=== PATIENT | female | born 1950 | race Caucasian/White ===

== ENCOUNTER 2017-10-02 10:16 | Day surgery (SDC) | payer MEDICARE ==
[2012-05-22 11:43] VITALS: BP 117/51
[2017-10-02] MEDS ORDERED: Lactated Ringers 1,000 ML IV ONE (10:17)
[2017-10-02] MEDS ORDERED: Marcaine 0.5% SDV 10 ML IJ ONE (10:17)
[2017-10-02] MEDS ORDERED: DIPRIVAN 200 MG/20 ML IV ONE (10:17)
[2017-10-02] MEDS ORDERED: LIDOCAINE HCL 2% 100 MG/5 ML IJ ONE (10:17)
--- NOTE | 2017-10-02 12:33 | XRAY ---
Indication: Left L3-L4 MBB. Intraoperative fluoroscopy was provided for 24 seconds. Single digital spot image submitted for interpretation demonstrates posterior spinal needle tips projecting over the left L3-L4 and L4-L5 facets. Correlate with intraoperative findings/report.
--- NOTE | 2017-10-02 13:07 | XRAY ---
24 seconds fluoroscopy time in surgery for left L4-5 MBB.
--- NOTE | 2017-10-03 12:49 | OP ---
DATE OF PROCEDURE: 10/02/2017 1138 SURGEON: Neil Alvares D.O. PREOPERATIVE DIAGNOSIS: Degenerative lumbar spine disease, spondylosis, low back pain. POSTOPERATIVE DIAGNOSIS: Degenerative lumbar spine disease, spondylosis, low back pain. PROCEDURE PERFORMED: Left L5-L4 medial branch block under fluoroscopic guidance. DESCRIPTION OF THE PROCEDURE: The patient was taken to the operating room and placed in the prone position on the table. Skin at the injection site was prepped and draped in sterile fashion. Under fluoroscopy, bony anatomy of the targeted injection site was visualized. Induction agent was given as per anesthesia while vital signs were monitored. Local anesthetic agent of 2 cc of 1% lidocaine preservative free was introduced to anesthetize the skin and the subcutaneous tissue through the injection site. Under fluoroscopic guidance, a #20 gauge standard spinal needle was advanced into the target medial branch through the oblique approach. The preservative free 0.5 cc of 1% lidocaine and 0.5 cc of 0.25 - 0.5% Marcaine were injected into each of the targeted medial branch nerve. After the needle was being removed, the skin was cleansed with alcohol and then a bandage was applied. No complications or adverse consequences were observed. The patient was returned to the holding area until stabilized before discharge to home. After the patient had been fully recovered from anesthesia, the patient states 90% pain reduction after the procedure. The patient will be followed up within ten days after the injection for re-evaluation.
== END 2017-10-02 12:17 | disposition home or self-care (01) ==
LOC: SDC-PAIN 10:16
PROVIDERS: ATTEND Internal Medicine
DX: M46.96 Unspecified inflammatory spondylopathy, lumbar region (principal); M48.061 Spinal stenosis, lumbar region without neurogenic claudication; M62.838 Other muscle spasm
CPT/HCPCS: 64493; 64494; 72020; 77003; J2704

== ENCOUNTER 2017-11-13 10:10 | Day surgery (SDC) | payer MEDICARE ==
[2012-05-22 11:43] VITALS: BP 117/51
[~2017-11-13 10:10] MED LIST: LIDOCAINE HCL 2% 100 MG/5 ML ONE; Marcaine 0.5% SDV 10 ML ONE
[2017-11-13] MEDS ORDERED: DIPRIVAN 200 MG/20 ML IV ONE (10:11)
--- NOTE | 2017-11-13 13:16 | XRAY ---
Indication: L5-S1 MBB. Intraoperative fluoroscopy was provided for 33 seconds. 3 digital spot images submitted for interpretation demonstrates 2 posterior spinal needle tips projecting over the left L4-L5 and L5-S1 facets. Correlate with intraoperative findings/report.
--- NOTE | 2017-11-13 13:26 | XRAY ---
33 seconds fluoroscopy time in surgery for
--- NOTE | 2017-11-14 09:40 | OP ---
DATE OF PROCEDURE: 11/13/2017 1150 SURGEON: Neil Alvares D.O. PREOPERATIVE DIAGNOSIS: Degenerative lumbar spine disease, spondylosis, low back pain. POSTOPERATIVE DIAGNOSIS: Degenerative lumbar spine disease, spondylosis, low back pain. PROCEDURE PERFORMED: Left L5-L4 medial branch block under fluoroscopic guidance. DESCRIPTION OF THE PROCEDURE: The patient was taken to the operating room and placed in the prone position on the table. Skin at the injection site was prepped and draped in sterile fashion. Under fluoroscopy, bony anatomy of the targeted injection site was visualized. Induction agent was given as per anesthesia while vital signs were monitored. Local anesthetic agent of 0.5 cc of 1% lidocaine preservative free was introduced to anesthetize the skin and the subcutaneous tissue through the injection site. Under fluoroscopic guidance, a #20 gauge standard spinal needle was advanced into the target medial branch through the oblique approach. The preservative free 0.5 cc of 1% lidocaine and 0.5 cc of 0.25% Marcaine were injected into each of the targeted medial branch nerve. After the needle was being removed, the skin was cleansed with alcohol and then a bandage was applied. No complications or adverse consequences were observed. The patient was returned to the holding area until stabilized before discharge to home. The preoperative pain level was 7 out of 10 and the postoperative pain level is 1 out of 10. The patient will be followed up within ten days after the injection for re-evaluation.
== END 2017-11-13 12:20 | disposition home or self-care (01) ==
LOC: SDC-PAIN 10:10
PROVIDERS: ATTEND Internal Medicine
DX: M46.96 Unspecified inflammatory spondylopathy, lumbar region (principal); M62.838 Other muscle spasm; M51.36 Other intervertebral disc degeneration, lumbar region; Z79.891 Long term (current) use of opiate analgesic; M47.816 Spondylosis without myelopathy or radiculopathy, lumbar region
CPT/HCPCS: 64493; 64494; 72020; 77003; J2704

== ENCOUNTER 2018-06-18 09:28 | Day surgery (SDC) | payer MEDICARE, OTHER ==
[2012-05-22 11:43] VITALS: BP 117/51
[2018-06-18] MEDS ORDERED: DIPRIVAN 200 MG/20 ML IV ONE (09:29)
[2018-06-18] MEDS ORDERED: Xylocaine 1% Vial 30 ML PF IJ ONE (09:29)
[2018-06-18] MEDS ORDERED: LIDOCAINE HCL 2% 100 MG/5 ML IJ ONE (09:29)
[2018-06-18] MEDS ORDERED: Depo-Medrol 40 MG/ML IM ONE (09:29)
[2018-06-18] MEDS ORDERED: Lactated Ringers 1,000 ML IV ONE (12:37)
--- NOTE | 2018-06-18 12:41 | XRAY ---
Indication: Bilateral L4-S1 MBB. Intraoperative fluoroscopy was provided for 14 seconds. Single digital spot image submitted for interpretation demonstrates posterior spinal needle tips along the expected course of the left and right L4-S1 nerve roots. Correlate with intraoperative findings/report.
--- NOTE | 2018-06-18 12:46 | XRAY ---
14 seconds of fluoroscopy was used in surgery for bilateral L4-S1 MBB.
== END 2018-06-18 11:00 | disposition home or self-care (01) ==
LOC: SDC-PAIN 09:28
PROVIDERS: ATTEND Psychiatry & Neurology Pain Medicine
DX: M48.8X6 Other specified spondylopathies, lumbar region (principal)
CPT/HCPCS: 64493; 64494; 72020; 77003; J1030; J2001; J2704

== ENCOUNTER 2018-07-23 13:03 | Day surgery (SDC) | payer MEDICARE ==
[2012-05-22 11:43] VITALS: BP 117/51
[2018-07-23] MEDS ORDERED: DIPRIVAN 200 MG/20 ML IV ONE (13:04)
[2018-07-23] MEDS ORDERED: Marcaine 0.5% SDV 10 ML IJ ONE (13:04)
[2018-07-23] MEDS ORDERED: Xylocaine 1% Vial 30 ML PF IJ ONE (13:04)
[2018-07-23] MEDS ORDERED: Depo-Medrol 40 MG/ML IM ONE (13:04)
[2018-07-23] MEDS ORDERED: Lactated Ringers 1,000 ML IV ONE (14:54)
--- NOTE | 2018-07-23 16:18 | XRAY ---
Indication: Left L4-S1 RFA. Intraoperative fluoroscopy was provided for 48 seconds. 2 digital spot images submitted for interpretation demonstrates posterior spinal needle tips projecting over the expected course of the left L4-S1 nerve roots. Correlate with intraoperative findings/report.
--- NOTE | 2018-07-23 16:32 | XRAY ---
48 seconds fluoroscopy time in surgery for left L4-S1 RFA.
== END 2018-07-23 15:25 | disposition home or self-care (01) ==
LOC: SDC-PAIN 13:03
PROVIDERS: ATTEND Psychiatry & Neurology Pain Medicine
DX: M47.817 Spondylosis without myelopathy or radiculopathy, lumbosacral region (principal)
CPT/HCPCS: 64635; 64636; 72020; 77003; 99100; J1030; J2001; J2704

== ENCOUNTER 2018-10-22 10:49 | Day surgery (SDC) | payer MEDICARE ==
[2012-05-22 11:43] VITALS: BP 117/51
[2018-10-22] MEDS ORDERED: DIPRIVAN 200 MG/20 ML IV ONE (10:50)
[2018-10-22] MEDS ORDERED: LIDOCAINE HCL 2% 100 MG/5 ML IJ ONE (10:50)
[2018-10-22] MEDS ORDERED: Depo-Medrol 40 MG/ML IM ONE (10:50)
[2018-10-22] MEDS ORDERED: Ketamine HCl 50 MG/ML IJ ONE (10:50)
[2018-10-22] MEDS ORDERED: Marcaine 0.5% SDV 10 ML IJ ONE (10:50)
[2018-10-22] MEDS ORDERED: Lactated Ringers 1,000 ML IV ONE (14:25)
--- NOTE | 2018-10-22 16:10 | XRAY ---
Indication: Left SI joint injection. Intraoperative fluoroscopy was provided for 7 seconds. 2 digital spot images submitted for interpretation demonstrates posterior needle tip projecting over the inferior left SI joint. Correlate with intraoperative findings/report.
--- NOTE | 2018-10-22 16:14 | XRAY ---
7 seconds of fluoroscopy was used in surgery for left SI joint injection.
== END 2018-10-22 12:52 | disposition home or self-care (01) ==
LOC: SDC-PAIN 10:49
PROVIDERS: ATTEND Psychiatry & Neurology Pain Medicine
DX: M46.1 Sacroiliitis, not elsewhere classified (principal); I10 Essential (primary) hypertension; J44.9 Chronic obstructive pulmonary disease, unspecified; K21.9 Gastro-esophageal reflux disease without esophagitis; M19.90 Unspecified osteoarthritis, unspecified site; Z85.3 Personal history of malignant neoplasm of breast
CPT/HCPCS: 62321; 72100; 77002; G0260; 27096; 99100; J1030; J2704

== ENCOUNTER 2019-11-15 10:41 | Emergency (ER) | payer MEDICARE ==
[2019-11-15] MEDS ORDERED: Zofran 4 MG/2 ML VIAL IV ONE (11:06)
[2019-11-15] MEDS ORDERED: TORAdol 30 mg Injection IV ONE (11:06)
[2019-11-15] MEDS ORDERED: Sodium Chloride 0.9% 1000 ML 1,000 ML ONE (11:11)
[2019-11-15] MEDS ORDERED: TORAdol 30 mg Injection ONE (11:11)
[2019-11-15] MEDS ORDERED: Zofran 4 MG/2 ML VIAL ONE (11:11)
[2019-11-15] MEDS ORDERED: Sodium Chloride 0.9% 1000 ML 1,000 ML IV SCH (11:15)
[2019-11-15 11:21] LABS: Absolute Neutrophil Ct (ANC) 7.59 (1.4-6.9); BASOPHIL % 0.1 % (0.0-0.4); Basophil (Absolute #) 0.01 (0-0.4); Eosinophil % 0.4 % (0.00-5.0); Eosinophil (Absolute #) 0.04 (0-0.5); Hemoglobin 11.7 gm/dl (12.0-16.0); Lymphocyte (Absolute #) 2.41 (1.0-4.6); Lymphocytes % 21.9 % (24.0-44.0); Mean Cell Volume 82.8 fl (78-100); Mean Corpuscular Hemoglobin 26.2 pg (26-32); Mean Corpuscular Hgb Concent. 31.6 g/dl (32-36); Mean Platelet Volume 9.9 fl (7.5-11.0); Monocyte (Absolute #) 0.94 (0.0-1.3); Monocytes % 8.6 % (0.0-12.0); Platelet Count 289 K/mm3 (150-450); Red Blood Count 4.47 M/mm3 (4.1-5.4); Red Cell Distribution Width 15.5 % (11.5-14.0)
[2019-11-15 11:33] LABS: ALKALINE PHOSPHATASE 115 U/L (38-126); AMYLASE 43 U/L (30-110); ANION GAP 12.8 MEQ/L (5-15); BLOOD UREA NITROGEN 15 mg/dL (7-17); CHLORIDE 111 mmol/L (98-107); Carbon Dioxide 22 mmol/L (22-30); Creatinine 1 0.59 mg/dL (0.52-1.04); Glucose 111 mg/dL (74-106); Potassium 3.7 mmol/L (3.5-5.1); SGOT/AST 25 U/L (14-36); SGPT/ALT 16 U/L (0-35); SODIUM 142 mmol/L (137-145); Total Protein 7.4 g/dL (6.3-8.2)
[2019-11-15 11:39] LABS: LIPASE < 10 U/L (23-300)
[2019-11-15 11:59] LABS: Appearance CLOUDY (CLEAR); Bacteria RARE /HPF (NEGATIVE); Bilirubin NEGATIVE (NEGATIVE); Blood LARGE Ery/ul (0-5); Calcium Oxalate Crystals >100 /HPF (NEGATIVE); Glucose NEGATIVE (NEGATIVE); Ketones NEGATIVE (NEGATIVE); Leukocyte Esterase TRACE (NEGATIVE); Mucus SLIGHT /HPF (NEGATIVE); Nitrite NEGATIVE (NEGATIVE); Protein,Urine Dip 100 (Negative); Specific Gravity 1.019 (1.005-1.025); Urobilinogen NEGATIVE mg/dL (0-1); WBC 26-50 /HPF (0-5)
[2019-11-15 12:05] LABS: RBC >101 /HPF (0-2)
[2019-11-15 12:09] VITALS: O2SAT 95
[2019-11-15] MEDS ORDERED: ROCEPHIN 1 Gm-D5w 50 ml Bag** 1 G/50 ML IVPB IV STA (12:35)
[2019-11-15] MEDS ORDERED: ROCEPHIN 1 Gm-D5w 50 ml Bag** 1 G/50 ML IVPB IV ONE (12:37)
--- NOTE | 2019-11-15 12:39 | ERPHSYRPT ---
- History of Present Illness Time Seen by Provider: 11/15/19 11:00 Historian: patient Exam Limitations: no limitations Patient Subjective Stated Complaint: Right sided flank pain Triage Nursing Assessment: Patient ambulated back to ED and transferred self to bed. Patient A+O X3. Patient's skin pink, warm and dry. Patient complains of right sided flank pain that goes around to right side of abdomen constant sharp pain 10/10. Abdomen soft and round with BS X 4. Patient denies any urinary symptoms. Physician History: For the past 4 days pt has had constant right mid back pain radiating to the right flank; for the past 3 days nausea. Pt denies fever, chest pain, shortness of air, headache. Allergies/Adverse Reactions: codeine [Codeine] Adverse Reaction (Intermediate, Verified 11/15/19 11:07) Nausea and Vomiting, light headed bandaids Adverse Reaction (Mild, Uncoded 11/15/19 11:07) redness/swelling Home Medications: Aspirin 81 gm Chew [Baby Aspirin 81 mg Chew] 81 mg PO DAILY 01/25/16 [ History] Hydrocodone Bit/Acetaminophen [Hydrocodon-Acetaminophn 10-325] 1 ea PO Q8HPRN PRN 01/25/16 [History] Multivitamin [Daily Multivitamin] 4 ea PO DAILY 01/25/16 [History] Omeprazole 20 MG [Prilosec 20 mg] 20 mg PO BID 01/25/16 [History] Cyanocobalamin 500 Mcg [Vitamin B-12 500 MCG] 500 mcg SL DAILY 01/31/16 [ History] Epinephrine [Epipen] 0.3 mg IM UD 01/31/16 [History] Fluoxetine HCl [Prozac] 20 mg PO DAILY 01/31/16 [History] Meclizine HCl 25 mg [Antivert 25 mg] 25 mg PO UD 01/31/16 [History] Benazepril HCl [Lotensin] 40 mg PO DAILY 12/20/16 [History] Calcium Carbonate [Calcium] 600 mg PO BID 12/20/16 [History] Cholecalciferol (Vitamin D3) [Vitamin D3] 1,000 unit PO DAILY 12/20/16 [History] Fluticasone/Vilanterol [Breo Ellipta 100-25 Mcg INH] 1 each IH DAILY 12/20/16 [ History] Thiamine HCl [Vitamin B-1] 2.5 tab PO .WEEKLY 12/20/16 [History] Albuterol 8 gm Mdi Hfa [Ventolin Hfa MDI] 2 puff IH .PRN 07/03/17 [History ] Amlodipine Besylate 5 mg [Norvasc 5 mg] 5 mg PO DAILY 07/03/17 [History] Glucosamine/D3/Boswellia Marie [Osteo Bi-Flex Tablet] 1 each PO BID 07/03/17 [ History] Loratadine 10 mg [Claritin 10 mg] 10 mg PO DAILY 07/03/17 [History] Metoprolol Tartrate 50 mg [Lopressor 50 MG] 100 tab PO DAILY 08/22/17 [ History] Celecoxib 100 mg [celeBREX 100 MG] 200 mg PO DAILY 11/11/17 [History] Gabapentin 100 PO HS 11/11/17 [History] Hx Tetanus, Diphtheria Vaccination/Date Given: No Hx Influenza Vaccination/Date Given: Yes Hx Pneumococcal Vaccination/Date Given: No Immunizations Up to Date: Yes Travel Risk - International Travel Have you traveled outside of the country in past 3 weeks: No Have you or anyone close to you been diagnosed with or: No Do your reside in a community with a known COVID-19 case?: Yes If Yes where:: [facility] - Coronavirus Screening Has patient experienced Coronavirus symptoms: No - Review of Systems Constitutional: No Fever Respiratory: No Dyspnea Cardiac: No Chest Pain Abdominal/Gastrointestinal: Other (right flank pain) Musculoskeletal: Other (right mid back pain.) Neurological: No Headache All Other Systems: Reviewed and Negative - Past Medical History Pertinent Past Medical History: Yes Neurological History: No Pertinent History ENT History: No Pertinent History Cardiac History: High Cholesterol, Hypertension Respiratory History: COPD Endocrine Medical History: No Pertinent History Musculoskeletal History: Osteoarthritis GI Medical History: Diverticulosis, GERD, Polyps History: Other Psycho-Social History: No Pertinent History Female Reproductive Disorders: Breast Cancer Other Medical History: BILATERAL TKA 2008, BARIATRIC SURGERY 2009; BREAST CA W/ LUMPECTOMY 2003 - Past Surgical History Past Surgical History: Yes Neuro Surgical History: No Pertinent History Cardiac: No Pertinent History Respiratory: No Pertinent History Gastrointestinal: Hernia Repair, Other Genitourinary: No Pertinent History Musculoskeletal: Joint Replacement, Orthopedic Surgery Female Surgical History: Mastectomy Other Surgical History: T&A,Bjorn knee replacement, umbil. hernior.,bariatric surgery, breast cancer with partial mastectomy left, lumpectomy right breast, tubal - Social History Smoking Status: Former smoker Exposure to second hand smoke: Yes Drug Use: none Patient Lives Alone: No Significant Family History: heart disease, cancer - Female History Hx Now: No - Nursing Vital Signs Nursing Vital Signs: Initial Vital Signs Temperature 98.6 F 11/15/19 10:54 Blood Pressure 160/85 11/15/19 10:54 Pain Scale Pain Intensity 5 - Physical Exam General Appearance: alert Eye Exam: PERRL/EOMI Ears, Nose, Throat Exam: pharynx normal Neck Exam: normal inspection Respiratory Exam: lungs clear Cardiovascular Exam: normal heart sounds Gastrointestinal/Abdomen Exam: soft, normal bowel sounds Back Exam: normal inspection Extremity Exam: No pedal edema Neurologic Exam: alert, cooperative Skin Exam: warm, dry SpO2 Interpretation: normal SpO2: 95 O2 Delivery: Room Air - Course Nursing assessment & vital signs reviewed: Yes - CT Exams Abdomen/Pelvis CT Interpretation: Tele-radiologist Report (a 4 x 4 x 3 mm stone at the right distal ureter causes mild right hydronephrosis and mild hydroureter. it is 1.1 cm proximal to the uvj. cholecystectomy. a non-obstructing stone in the left renal pelvis is 12 x 10 x 9 mm. uncomplicated gastric bypass surgery.) Ordered Tests: Active Orders 24 hr Category Date Time Status IV Insertion STAT Care 11/15/19 11:06 Active ABDOMEN AND PELVIS W/0 CONTRAS [CT] Stat Exams 11/15/19 11:07 Taken AMYLASE Stat Lab 11/15/19 11:10 Completed BLOOD CULTURE Stat Lab 11/15/19 12:35 Ordered CBC W DIFF Stat Lab 11/15/19 11:10 Completed CMP Stat Lab 11/15/19 11:10 Completed CULTURE,URINE Stat Lab 11/15/19 11:10 Received LIPASE Stat Lab 11/15/19 11:10 Completed UA W/RFX UR CULTURE Stat Lab 11/15/19 11:10 Completed Medication Summary Generic Name Dose Route Start Last Admin Trade Name Freq PRN Reason Stop Dose Admin Sodium Chloride 1,000 mls @ 100 mls/hr 11/15/19 11:15 11/15/19 11:14 Sodium Chloride 0.9% 1000 Ml IV 12/15/19 11:14 100 mls/hr .Q10H SALVADOR Administration Ceftriaxone Sodium/Dextrose 1 g in 50 mls @ 100 mls/hr 11/15/19 12:35 12:40 Rocephin 1 Gm-D5w 50 Ml Bag IV 11/15/19 13:04 100 ml/hr STAT STA 100 mls/hr Administration Discontinued Medications Generic Name Dose Route Start Last Admin Trade Name Freq PRN Reason Stop Dose Admin Fentanyl Citrate 100 mcg 11/15/19 12:56 Sublimaze 100 Mcg/2 Ml IV 11/15/19 12:57 STAT ONE Ceftriaxone Sodium/Dextrose Confirm 11/15/19 12:37 Rocephin 1 Gm-D5w 50 Ml Bag Administered 11/15/19 12:38 Dose 1 g in 50 mls @ ud IV .STK-MED ONE Ketorolac Tromethamine 30 mg 11/15/19 11:06 11/15/19 11:14 Toradol 30 Mg Injection IV 11/15/19 11:07 30 mg STAT ONE Administration Ketorolac Tromethamine Confirm 11/15/19 11:11 Toradol 30 Mg Injection Administered 11/15/19 11:12 Dose 30 mg .ROUTE .STK-MED ONE Ondansetron HCl 4 mg 11/15/19 11:06 11/15/19 11:14 Zofran 4 Mg/2 Ml Vial IV 11/15/19 11:07 4 mg STAT ONE Administration Ondansetron HCl Confirm 11/15/19 11:11 Zofran 4 Mg/2 Ml Vial Administered 11/15/19 11:12 Dose 4 mg .ROUTE .STK-MED ONE Lab/Rad Data: Laboratory Result Diagrams 11/15/19 11:10 11/15/19 11:10 Laboratory Results 11/15/19 11/15/19 11/15/19 Range/Units 11:10 11:10 11:10 WBC 11.0 H (4.0-10.5) K/mm3 RBC 4.47 (4.1-5.4) M/mm3 Hgb 11.7 L (12.0-16.0) gm/dl Hct 37.0 (35-47) % MCV 82.8 (78-100) fl MCH 26.2 (26-32) pg MCHC 31.6 L (32-36) g/dl RDW 15.5 H (11.5-14.0) % Plt Count 289 (150-450) K/mm3 MPV 9.9 (7.5-11.0) fl Gran % 69.0 H (36.0-66.0) % Eos # (Auto) 0.04 (0-0.5) Absolute Lymphs (auto) 2.41 (1.0-4.6) Absolute Monos (auto) 0.94 (0.0-1.3) Lymphocytes % 21.9 L (24.0-44.0) % Monocytes % 8.6 (0.0-12.0) % Eosinophils % 0.4 (0.00-5.0) % Basophils % 0.1 (0.0-0.4) % Absolute Granulocytes 7.59 H (1.4-6.9) Basophils # 0.01 (0-0.4) Sodium 142 (137-145) mmol/L Potassium 3.7 (3.5-5.1) mmol/L Chloride 111 H (98-107) mmol/L Carbon Dioxide 22 (22-30) mmol/L Anion Gap 12.8 (5-15) MEQ/L BUN 15 (7-17) mg/dL Creatinine 0.59 (0.52-1.04) mg/dL Estimated GFR > 60.0 ML/MIN Glucose 111 H (74-106) mg/dL Calcium 9.0 (8.4-10.2) mg/dL Total Bilirubin 0.50 (0.2-1.3) mg/dL AST 25 (14-36) U/L ALT 16 (0-35) U/L Alkaline Phosphatase 115 (38-126) U/L Serum Total Protein 7.4 (6.3-8.2) g/dL Albumin 4.0 (3.5-5.0) g/dL Amylase 43 (30-110) U/L Lipase < 10 L (23-300) U/L Urine Color MERCEDES (YELLOW) Urine Appearance CLOUDY (CLEAR) Urine pH 5.0 (5-6) Ur Specific Rueter 1.019 (1.005-1.025) Urine Protein 100 (Negative) Urine Ketones NEGATIVE (NEGATIVE) Urine Blood LARGE (0-5) Mike/ul Urine Nitrite NEGATIVE (NEGATIVE) Urine Bilirubin NEGATIVE (NEGATIVE) Urine Urobilinogen NEGATIVE (0-1) mg/dL Ur Leukocyte Esterase TRACE (NEGATIVE) Urine WBC (Auto) 26-50 (0-5) /HPF Urine RBC (Auto) >101 (0-2) /HPF U Epithel Cells (Auto) NONE (FEW) /HPF Urine Bacteria (Auto) RARE (NEGATIVE) /HPF Calcium Oxalate Crystal >100 (NEGATIVE) /HPF Urine Mucus (Auto) SLIGHT (NEGATIVE) /HPF Urine Culture Reflexed YES (NO) Urine Glucose NEGATIVE (NEGATIVE) mg/dL - Progress Progress: unchanged Counseled pt/family regarding: lab results, rad results - Departure Departure Disposition: Home Clinical Impression: Renal colic on right side, UTI (urinary tract infection) Condition: Stable Critical Care Time: No Referrals: WANDER MONTOYA [Primary Care Provider] - Instructions: Kidney Stones (DC), Urinary Tract Infection, Adult (DC) Additional Instructions: Follow up with dr lo(urologist)([phone]) - call tomorrow morning for an appointment. Strain all urines. Prescriptions: Ondansetron ODT 4 MG [Zofran Odt 4 mg] 4 mg PO Q6H PRN PRN #14 tab.rapdis PRN Reason: Nausea/Vomiting Ketorolac Tromethamine [Toradol] 10 mg PO Q8H PRN PRN #14 tablet PRN Reason: Pain Smz/Tmp Ds Tablet [Bactrim Ds Tablet] 1 tab PO Q12H #20 tablet Tamsulosin HCl 0.4 mg [Flomax 0.4 MG] 0.4 mg PO DAILY #14 cap
[2019-11-15 12:43] VITALS: PULSE 60
[2019-11-15] MEDS ORDERED: SUBLIMAZE 100 MCG/2 ML IV ONE (12:56)
[2019-11-15] MEDS ORDERED: SUBLIMAZE 100 MCG/2 ML ONE (13:06)
[2019-11-15 13:15] VITALS: BP 132/50
--- NOTE | 2019-11-15 20:24 | XRAY ---
Indication: Right flank pain. Multiple contiguous axial images obtained through the abdomen and pelvis without contrast as ordered. Comparison: July 05, 2014. Lung bases demonstrates mild bibasilar atelectasis/scarring without infiltrate or effusion. Heart is not enlarged. Again a previous gastric bypass surgery and cholecystectomy. Noncontrasted stomach and bowel loops appear nonobstructed. Normal appendix. There is again diffuse scattered colonic diverticulosis. No free fluid/air. New 4 mm calculus in the distal right ureter, approximately 1-2 cm proximal to the UVJ. Proximal right ureter minimally prominent with mild hydronephrosis consistent with partial obstruction. Additional new punctate right mid renal calculus and new 1.2 cm nonobstructing left UPJ calculus. Remaining liver, pancreas, spleen, adrenal glands, bladder, and uterus appear unremarkable for noncontrast exam. Again moderate scattered aortoiliac calcifications without AAA. Osseous structures again with mild/moderate degenerative changes throughout the thoracolumbar spine. Impression: 1. New 4 mm distal right ureter calculus. Also new right renal micro-calculus and 1.2 cm nonobstructing left UPJ calculus. 2. Again diffuse colonic diverticulosis without diverticulitis. 3. Stable gastric bypass surgery and cholecystectomy. 4. Remaining CT abdomen/pelvis without contrast exam is negative. Comment: Preliminary interpretation was made by [facility]. No critical discrepancy.
== END 2019-11-15 13:27 | disposition home or self-care (01) ==
LOC: ED 10:41
DX: N23 Unspecified renal colic (principal); N39.0 Urinary tract infection, site not specified; Z79.899 Other long term (current) drug therapy; I10 Essential (primary) hypertension; E78.00 Pure hypercholesterolemia, unspecified; M19.90 Unspecified osteoarthritis, unspecified site; K21.9 Gastro-esophageal reflux disease without esophagitis; Z85.3 Personal history of malignant neoplasm of breast; Z96.653 Presence of artificial knee joint, bilateral
CPT/HCPCS: 36000; 36415; 74176; 80053; 81001; 82150; 83690; 85025; 87040; 87086; 96365; 96374; 96375; 99284; J0696; J1885; J2405; J3010

== ENCOUNTER 2020-05-27 10:01 | Emergency (ER) | payer MEDICARE ==
[2020-05-27 10:43] LABS: BASOPHIL % 0.4 % (0.0-0.4); Basophil (Absolute #) 0.03 (0-0.4); Eosinophil % 1.4 % (0.00-5.0); Eosinophil (Absolute #) 0.12 (0-0.5); Hematocrit 27.5 % (35-47); Hemoglobin 7.8 gm/dl (12.0-16.0); Lymphocyte (Absolute #) 2.77 (1.0-4.6); Lymphocytes % 33.4 % (24.0-44.0); Mean Cell Volume 69.6 fl (78-100); Mean Corpuscular Hemoglobin 19.7 pg (26-32); Mean Corpuscular Hgb Concent. 28.4 g/dl (32-36); Mean Platelet Volume 8.6 fl (7.5-11.0); Monocyte (Absolute #) 0.77 (0.0-1.3); Monocytes % 9.3 % (0.0-12.0); Neutrophil % 55.5 % (36.0-66.0); Platelet Count 446 K/mm3 (150-450); Red Blood Count 3.95 M/mm3 (4.1-5.4); Red Cell Distribution Width 16.6 % (11.5-14.0); White Blood Count 8.3 K/mm3 (4.0-10.5)
[2020-05-27 10:44] LABS: Appearance CLEAR (CLEAR); Bilirubin NEGATIVE (NEGATIVE); Blood NEGATIVE Ery/ul (0-5); Glucose NEGATIVE (NEGATIVE); Ketones NEGATIVE (NEGATIVE); Leukocyte Esterase NEGATIVE (NEGATIVE); Mucus SLIGHT /HPF (NEGATIVE); Nitrite NEGATIVE (NEGATIVE); Protein,Urine Dip NEGATIVE (Negative); Specific Gravity 1.009 (1.005-1.025); Urobilinogen NEGATIVE mg/dL (0-1)
--- NOTE | 2020-05-27 11:04 | XRAY ---
Indication: Chronic short of breath for years. COPD. Comparison: May 29, 2010. Portable chest remains clear. Heart remains borderline enlarged. Vascularity normal. Bony thorax intact again with mild degenerative changes. Impression: Continued nonacute chest with chronic features.
[2020-05-27 11:11] LABS: ALBUMIN 3.8 g/dL (3.5-5.0); ALKALINE PHOSPHATASE 96 U/L (38-126); ANION GAP 10.9 MEQ/L (5-15); BLOOD UREA NITROGEN 19 mg/dL (7-17); CHLORIDE 107 mmol/L (98-107); Calcium 8.9 mg/dL (8.4-10.2); Carbon Dioxide 22 mmol/L (22-30); Creatinine 1 0.66 mg/dL (0.52-1.04); EST GLOMERULAR FILTRATION RATE > 60.0 ML/MIN; Glucose 97 mg/dL (74-106); MAGNESIUM 2.2 mg/dL (1.6-2.3); NT PRO BNP 331 pg/mL (0-900); SGOT/AST 24 U/L (14-36); SGPT/ALT 15 U/L (0-35); SODIUM 136 mmol/L (137-145)
[2020-05-27 11:13] LABS: TROPONIN < 0.012 ng/mL (0.000-0.034)
[2020-05-27] MEDS ORDERED: Sodium Chloride 0.9% 500 ML 500 ML IV ONE ×2 (11:30→11:40)
--- NOTE | 2020-05-27 11:34 | ERPHSYRPT ---
- History of Present Illness Source: patient Exam Limitations: no limitations Patient Subjective Stated Complaint: Pt states "I have COPD and I have been short of breath and weak for the past three days." Triage Nursing Assessment: Pt presented alert and oriented X 3, skin pwd. Pt ambulates with an upright steady gait, able to speak in clear full sentences. Pt tachypneic. Physician History: 70yo female 2-3 days feeling weak. Some SOB but not really worse than normal No fever, cough, GI sxs Timing/Duration: day(s) Severity: mild Associated Symptoms: shortness of breath, weakness Allergies/Adverse Reactions: codeine [Codeine] Adverse Reaction (Intermediate, Verified 11/15/19 11:07) Nausea and Vomiting, light headed bandaids Adverse Reaction (Mild, Uncoded 11/15/19 11:07) redness/swelling Home Medications: Aspirin 81 gm Chew [Baby Aspirin 81 mg Chew] 81 mg PO DAILY 01/25/16 [History] Multivitamin [Daily Multivitamin] 4 ea PO DAILY 01/25/16 [History] Cyanocobalamin 500 Mcg [Vitamin B-12 500 MCG] 500 mcg SL DAILY 01/31/16 [History] Epinephrine [Epipen] 0.3 mg IM UD 01/31/16 [History] Fluoxetine HCl [Prozac] 20 mg PO DAILY 01/31/16 [History] Meclizine HCl 25 mg [Antivert 25 mg] 25 mg PO UD 01/31/16 [History] Benazepril HCl [Lotensin] 40 mg PO DAILY 12/20/16 [History] Calcium Carbonate [Calcium] 600 mg PO BID 12/20/16 [History] Cholecalciferol (Vitamin D3) [Vitamin D3] 1,000 unit PO DAILY 12/20/16 [History] Fluticasone/Vilanterol [Breo Ellipta 100-25 Mcg INH] 1 each IH DAILY 12/20/16 [History] Thiamine HCl [Vitamin B-1] 2.5 tab PO .WEEKLY 12/20/16 [History] Albuterol 8 gm Mdi Hfa [Ventolin Hfa MDI] 2 puff IH .PRN 07/03/17 [History] Glucosamine/D3/Boswellia Marie [Osteo Bi-Flex Tablet] 1 each PO BID 07/03/17 [History] Loratadine 10 mg [Claritin 10 mg] 10 mg PO DAILY 07/03/17 [History] Metoprolol Tartrate 50 mg [Lopressor 50 MG] 100 tab PO DAILY 08/22/17 [History] Celecoxib 100 mg [celeBREX 100 MG] 200 mg PO DAILY 11/11/17 [History] Gabapentin 100 mg PO HS 11/11/17 [History] Hx Tetanus, Diphtheria Vaccination/Date Given: No Hx Influenza Vaccination/Date Given: Yes Hx Pneumococcal Vaccination/Date Given: Yes Immunizations Up to Date: Yes Travel Risk - International Travel Have you traveled outside of the country in past 3 weeks: No - Coronavirus Screening Are you exhibiting any of the following symptoms?: No Close contact with a COVID-19 positive Pt in past 14-21 Days: No - Review of Systems Constitutional: Weakness, No Fever, No Chills Eyes: No Symptoms Ears, Nose, & Throat: No Symptoms Respiratory: Dyspnea, No Cough Cardiac: No Chest Pain, No Edema, No Syncope Abdominal/Gastrointestinal: No Abdominal Pain, No Nausea, No Vomiting, No Kayla rrhea Genitourinary Symptoms: No Dysuria Musculoskeletal: No Back Pain, No Neck Pain Skin: No Rash Neurological: No Dizziness, No Focal Weakness, No Headache, No Sensory Changes Psychological: No Symptoms Endocrine: No Symptoms All Other Systems: Reviewed and Negative - Past Medical History Pertinent Past Medical History: Yes Neurological History: No Pertinent History ENT History: No Pertinent History Cardiac History: High Cholesterol, Hypertension Respiratory History: COPD Endocrine Medical History: No Pertinent History Musculoskeletal History: Osteoarthritis GI Medical History: Diverticulosis, GERD, Polyps History: Other Psycho-Social History: No Pertinent History Female Reproductive Disorders: Breast Cancer Other Medical History: BILATERAL TKA 2008, BARIATRIC SURGERY 2009; BREAST CA W/ LUMPECTOMY 2003 - Past Surgical History Past Surgical History: Yes Neuro Surgical History: No Pertinent History Cardiac: No Pertinent History Respiratory: No Pertinent History Gastrointestinal: Hernia Repair, Other Genitourinary: No Pertinent History Musculoskeletal: Joint Replacement, Orthopedic Surgery Female Surgical History: Mastectomy Other Surgical History: T&A,Bjorn knee replacement, umbil. hernior.,bariatric surgery, breast cancer with partial mastectomy left, lumpectomy right breast, tubal - Social History Smoking Status: Former smoker Exposure to second hand smoke: Yes Drug Use: none Patient Lives Alone: Yes Significant Family History: heart disease, cancer - Female History Hx Now: No - Nursing Vital Signs Nursing Vital Signs: Initial Vital Signs Temperature 98.3 F 05/27/20 10:02 Pulse Rate 82 05/27/20 10:02 Respiratory Rate 24 05/27/20 10:02 Blood Pressure 146/61 05/27/20 10:02 O2 Sat by Pulse Oximetry 96 05/27/20 10:02 Pain Scale Pain Intensity 0 - Physical Exam General Appearance: no apparent distress, alert Eye Exam: PERRL/EOMI, eyes nml inspection Ears, Nose, Throat Exam: normal ENT inspection, TMs normal, pharynx normal, mo ist mucous membranes Neck Exam: normal inspection, non-tender, supple, full range of motion Respiratory Exam: normal breath sounds, lungs clear, No respiratory distress Cardiovascular Exam: regular rate/rhythm, normal heart sounds, normal peripheral pulses Gastrointestinal/Abdomen Exam: soft, normal bowel sounds, No tenderness, No mass Back Exam: normal inspection, normal range of motion, No CVA tenderness, No vertebral tenderness Extremity Exam: normal inspection, normal range of motion, pelvis stable Neurologic Exam: alert, oriented x 3, cooperative, normal mood/affect, nml cerebellar function, nml station & gait, sensation nml, No motor deficits Skin Exam: normal color, warm, dry, No rash Lymphatic Exam: No adenopathy SpO2: 96 - Course Nursing assessment & vital signs reviewed: Yes EKG Interpreted by Me: RATE (70), Sinus Rhythm, Other (Prolonged SD) - Radiology Exams Chest X-ray Interpretation: Discussed w/ radiologist, Negative Ordered Tests: Active Orders 24 hr Category Date Time Status EKG-ER Only STAT Care 05/27/20 10:21 Active IV Insertion STAT Care 05/27/20 10:21 Active Oxygen-ED Only Nasal Cannula 2 lpm Care 05/27/20 10:21 Active CHEST 1 VIEW (PORTABLE) Stat Exams 05/27/20 10:23 Completed CBC W DIFF Stat Lab 05/27/20 10:21 Completed CMP Stat Lab 05/27/20 10:30 Completed MAGNESIUM Stat Lab 05/27/20 10:30 Completed NT PRO BNP Stat Lab 05/27/20 10:30 Completed TROPONIN Stat Lab 10/23/20 10:30 Completed UA W/RFX UR CULTURE Stat Lab 05/27/20 10:30 Completed Medication Summary Discontinued Medications Generic Name Dose Route Start Last Admin Trade Name Cassius PRN Reason Stop Dose Admin Sodium Chloride 500 mls @ 500 mls/hr 05/27/20 11:30 05/27/20 12:53 Sodium Chloride 0.9% 500 Ml IV 05/27/20 12:29 Infused .Q1H ONE Infusion Sodium Chloride Confirm 05/27/20 11:40 Sodium Chloride 0.9% 500 Ml Administered 05/27/20 11:41 Dose 500 mls @ ud IV .STK-MED ONE Lab/Rad Data: Laboratory Result Diagrams 05/27/20 10:21 05/27/20 10:30 Laboratory Results 05/27/20 05/27/20 05/27/20 Range/Units 10:30 10:30 10:21 WBC 8.3 (4.0-10.5) K/mm3 RBC 3.95 L (4.1-5.4) M/mm3 Hgb 7.8 L (12.0-16.0) gm/dl Hct 27.5 L (35-47) % MCV 69.6 L (78-100) fl MCH 19.7 L (26-32) pg MCHC 28.4 L (32-36) g/dl RDW 16.6 H (11.5-14.0) % Plt Count 446 (150-450) K/mm3 MPV 8.6 (7.5-11.0) fl Gran % 55.5 (36.0-66.0) % Eos # (Auto) 0.12 (0-0.5) Absolute Lymphs (auto) 2.77 (1.0-4.6) Absolute Monos (auto) 0.77 (0.0-1.3) Lymphocytes % 33.4 (24.0-44.0) % Monocytes % 9.3 (0.0-12.0) % Eosinophils % 1.4 (0.00-5.0) % Basophils % 0.4 (0.0-0.4) % Absolute Granulocytes 4.60 (1.4-6.9) Basophils # 0.03 (0-0.4) Sodium 136 L (137-145) mmol/L Potassium 4.0 (3.5-5.1) mmol/L Chloride 107 (98-107) mmol/L Carbon Dioxide 22 (22-30) mmol/L Anion Gap 10.9 (5-15) MEQ/L BUN 19 H (7-17) mg/dL Creatinine 0.66 (0.52-1.04) mg/dL Estimated GFR > 60.0 ML/MIN Glucose 97 (74-106) mg/dL Calcium 8.9 (8.4-10.2) mg/dL Magnesium 2.2 (1.6-2.3) mg/dL Total Bilirubin 0.20 (0.2-1.3) mg/dL AST 24 (14-36) U/L ALT 15 (0-35) U/L Alkaline Phosphatase 96 (38-126) U/L Troponin I < 0.012 (0.000-0.034) ng/mL NT-Pro-B Natriuret Pep 331 (0-900) pg/mL Serum Total Protein 7.0 (6.3-8.2) g/dL Albumin 3.8 (3.5-5.0) g/dL Urine Color YELLOW (YELLOW) Urine Appearance CLEAR (CLEAR) Urine pH 5.0 (5-6) Ur Specific Startex 1.009 (1.005-1.025) Urine Protein NEGATIVE (Negative) Urine Ketones NEGATIVE (NEGATIVE) Urine Blood NEGATIVE (0-5) Mike/ul Urine Nitrite NEGATIVE (NEGATIVE) Urine Bilirubin NEGATIVE (NEGATIVE) Urine Urobilinogen NEGATIVE (0-1) mg/dL Ur Leukocyte Esterase NEGATIVE (NEGATIVE) Urine WBC (Auto) NONE (0-5) /HPF Urine RBC (Auto) NONE (0-2) /HPF U Epithel Cells (Auto) NONE (FEW) /HPF Urine Bacteria (Auto) NONE (NEGATIVE) /HPF Urine Mucus (Auto) SLIGHT (NEGATIVE) /HPF Urine Culture Reflexed NO (NO) Urine Glucose NEGATIVE (NEGATIVE) mg/dL - Progress Progress: improved Progress Note: 05/27/20 14:01 PT stable throughout NS IVF given. Labs normal, CXR neg Pt is anemic-7.8 was 11.7 in February Pt refusing digital exam. D/w Dr. Lechuga-hold ASA, Rx iron tabs, hemoccult cards, follow up next week early. Discussed with : Teressa Will see patient in: office Counseled pt/family regarding: lab results, diagnosis, need for follow-up - Departure Departure Disposition: Home Clinical Impression: Anemia due to blood loss, chronic Condition: Stable Critical Care Time: No Referrals: WANDER LECHUGA [Primary Care Provider] - Additional Instructions: Hold Aspirin. Start iron tablets Monitor possible GI bleed with hemoccult cards Follow up with Dr. Lechuga early next week. Return to ER if worse. Prescriptions: Ferrous Sulfate [Albafort] 325 mg PO BID #60 tablet
[2020-05-27 13:57] VITALS: O2SAT 96
[2020-05-27 14:03] LABS: Slide Review 1 YES
[2020-05-27 14:09] VITALS: BP 141/51; PULSE 58
== END 2020-05-27 14:21 | disposition home or self-care (01) ==
LOC: ED 10:01
DX: D50.0 Iron deficiency anemia secondary to blood loss (chronic) (principal); J44.9 Chronic obstructive pulmonary disease, unspecified; Z79.899 Other long term (current) drug therapy; I10 Essential (primary) hypertension; Z85.3 Personal history of malignant neoplasm of breast
CPT/HCPCS: 36000; 36415; 71045; 80053; 81001; 83735; 83880; 84484; 85025; 93005; 96360; 99284

== ENCOUNTER 2020-07-08 06:01 | Day surgery (SDC) | payer MEDICARE ==
[2020-07-08] MEDS ORDERED: Lactated Ringers 1,000 ML IV SCH (06:30)
[2020-07-08] MEDS ORDERED: Versed 2 MG/2 ML Injection ONE (07:01)
[2020-07-08] MEDS ORDERED: DIPRIVAN 200 MG/20 ML IV ONE ×2 (07:01→07:17)
--- NOTE | 2020-07-08 08:30 | OP ---
SURGERY DATE/TIME: 07/08/2020 0700 PREOPERATIVE DIAGNOSIS: Iron deficiency anemia. POSTOPERATIVE DIAGNOSIS: Evidence of previous gastric surgery, gastropathy, hiatal hernia, mass in the colon near the hepatic flexure. PROCEDURES: 1) Esophagogastroduodenoscopy. 2) Colonoscopy with cold forceps biopsy. 3) Ink tattooing of the colon mass. SURGEON: Dr. Lechuga. ANESTHESIA: Medications were given by the anesthesia department. BRIEF HISTORY: The patient is a 71 year old white female who presents now for complaints of iron deficiency anemia. Her oncologist wished her to have endoscopic evaluation. We appraised the risk with her about potential for perforation, phlebitis, untoward reaction to medication, bleeding and missed lesions. The patient verbalized her understanding and desired to have the procedure performed. DESCRIPTION OF PROCEDURE: The patient was given the medications by the anesthesia department. She had continuous pulse oximetry, ECG monitoring, intermittent blood pressure monitoring and tidal CO2 monitoring during the examination. She was placed in the left lateral decubitus position. A bite block was placed. A flexible Olympus gastroscope was used to intubate the oropharynx. A view of the larynx was obtained and was normal. The scope was easily passed in the esophagus which appeared to the gastroesophageal junction where there appeared to be evidence of hiatal hernia. The scope was then entered in the stomach where evidence of previous gastric bypass surgery was seen and the appearance of what appears to be NSAID-type gastropathy. No ulcers or other lesions were noted. The scope was removed from the patient. Next, a digital rectal exam was performed revealed normal anal sphincter tone and no masses. The flexible Olympus pediatric colonoscope was used to intubate the rectum. A view of the colon was developed sequentially to the cecum. Upon insertion and withdrawal was noted a mass encompassing approximately three quarters of the lumen of the colon at approximately the hepatic flexure. This is biopsied using cold biopsy technique and is most consistent with adenocarcinoma of the colon. We did tattoo the lesion in its distal segment but attempts to tattoo it in the proximal area were unsuccessful as the flimsiness of the injection tubing prevented our ability to inject properly. The scope was removed from the patient and with careful inspection upon withdrawal and no other lesions being noted other than sigmoid diverticulosis. The scope was removed from the patient who tolerated the procedure well. The prep was noted to be poor.
[2020-07-08 08:41] VITALS: O2SAT 97
--- NOTE | 2020-07-08 08:56 | XRAY ---
Indication: Transverse colon mass seen on recent colonoscopy. Multiple contiguous axial images obtained through the abdomen and pelvis without contrast as ordered. Comparison: November 15, 2019. Lung bases again demonstrates mild bibasilar atelectasis/scarring and tiny right base calcified granuloma. No infiltrate or effusion. Heart is not enlarged. New small hiatal hernia. Again previous gastric bypass surgery and cholecystectomy. Noncontrasted stomach and bowel loops remain nonobstructed. Normal appendix. Distal ascending colon now demonstrates focus of mild circumferential wall thickening with mild pericolonic stranding, focal colitis versus mass. This is at least 3 cm in length. There remains scattered colonic diverticulosis again greatest in the sigmoid. New tiny cul-de-sac fluid. No walled off fluid collection or free air. Stable nonobstructing right mid renal and new left mid renal punctate calculus. Remaining liver, pancreas, spleen, adrenal glands, kidneys, ureters, bladder, and uterus appear unremarkable for noncontrast exam. Stable moderate aortoiliac calcifications without AAA. Osseous structures intact again with mild/moderate degenerative spondylosis throughout the thoracolumbar spine.. Impression: 1. New finding distal ascending colon circumferential wall thickening with pericolonic stranding, focal colitis versus mass. New tiny cul-de-sac fluid may be related. 2. New small hiatal hernia. 3. Again incidental colonic diverticulosis and nonobstructing micro-calculi.
[2020-07-08 09:07] VITALS: BP 157/62; PULSE 57
== END 2020-07-08 09:04 | disposition home or self-care (01) ==
LOC: SDC 06:01
PROVIDERS: ATTEND Family Medicine
DX: C18.4 Malignant neoplasm of transverse colon (principal); D50.9 Iron deficiency anemia, unspecified; K31.9 Disease of stomach and duodenum, unspecified; K44.9 Diaphragmatic hernia without obstruction or gangrene
CPT/HCPCS: 36415; 74176; 82378; 99100; J2250; J2704

== ENCOUNTER 2020-07-21 07:38 | Inpatient (IN) | payer MEDICARE ==
[2020-07-21] MEDS ORDERED: MEFOXIN 2 GM PREMIX** 2 GM/50 ML ML IV ONE (12:47)
[2020-07-21] MEDS ORDERED: Lactated Ringers 1,000 ML IV ONE ×2 (12:47→16:36)
[2020-07-21] MEDS ORDERED: MEFOXIN 2 GM PREMIX** 50 ML IV ONE (12:49)
[2020-07-21] MEDS ORDERED: MEFOXIN 2 GM PREMIX** 2 GM/50 ML ML IV SCH (13:00)
[2020-07-21] MEDS ORDERED: Lactated Ringers 1,000 ML IV SCH (13:00)
[2020-07-21] MEDS ORDERED: ENTEREG 12 MG PO SCH (13:00)
[2020-07-21 13:57] LABS: ABO TYPING O; Antibody Screen NEGATIVE (NEGATIVE); RH TYPING POSITIVE
[2020-07-21] MEDS ORDERED: Zemuron 100 MG/10 ML ONE ×6 (15:22→17:54)
[2020-07-21] MEDS ORDERED: SUBLIMAZE 100 MCG/2 ML ONE ×3 (15:22→18:55)
[2020-07-21] MEDS ORDERED: BRIDION 200MG/2ML IV ONE (15:22)
[2020-07-21] MEDS ORDERED: TORAdol 30 mg Injection ONE (15:22)
[2020-07-21] MEDS ORDERED: Decadron 4 MG INJ ONE (15:22)
[2020-07-21] MEDS ORDERED: DIPRIVAN 200 MG/20 ML IV ONE (15:22)
[2020-07-21] MEDS ORDERED: Zofran 4 MG/2 ML VIAL ONE (15:22)
[2020-07-21] MEDS ORDERED: Xylocaine-Mpf 2% 5 Ml Vial ONE (15:22)
[2020-07-21] MEDS ORDERED: Astramorph-Pf 5 MG/10 ML ONE ×2 (15:23)
[2020-07-21] MEDS ORDERED: Phenergan 25 MG INJ IM PRN (16:04)
[2020-07-21] MEDS ORDERED: Ketamine HCl 50 MG/ML ONE (16:20)
[2020-07-21] MEDS ORDERED: Versed 2 MG/2 ML Injection ONE (17:35)
[2020-07-21] MEDS ORDERED: MEFOXIN 1 Gm/ D5W 50 Ml** 1 G/50 ML ML IV SCH (18:00)
[2020-07-21] MEDS ORDERED: MORPHINE SULFATE 10 MG/ML ONE ×2 (18:30→18:55)
[2020-07-21] MEDS ORDERED: Hydromorphone 1 mg/ml Injection ONE ×2 (18:30→19:22)
[2020-07-21 18:59] LABS: Appearance SLIGHTLY CLOUDY (CLEAR); Bilirubin NEGATIVE (NEGATIVE); Blood NEGATIVE Ery/ul (0-5); Glucose NEGATIVE (NEGATIVE); Ketones SMALL (NEGATIVE); Leukocyte Esterase NEGATIVE (NEGATIVE); Mucus SLIGHT /HPF (NEGATIVE); Nitrite NEGATIVE (NEGATIVE); Protein,Urine Dip NEGATIVE (Negative); Specific Gravity 1.018 (1.005-1.025); Urobilinogen NEGATIVE mg/dL (0-1); WBC 0-2 /HPF (0-5)
[2020-07-21] MEDS: D5W/0.45NS W/ 20mEq KCl 1000 ML 1,000 ML IV SCH (20:47)
[2020-07-21] MEDS: Morphine PCA 1 MG/ML 30 ML IV PRN (21:17)
[2020-07-22 06:53] LABS: Hemoglobin 11.4 gm/dl (12.0-16.0); Mean Cell Volume 82.5 fl (78-100); Mean Corpuscular Hemoglobin 24.1 pg (26-32); Mean Corpuscular Hgb Concent. 29.2 g/dl (32-36); Mean Platelet Volume 9.6 fl (7.5-11.0); Platelet Count 234 K/mm3 (150-450); Red Blood Count 4.73 M/mm3 (4.1-5.4); Red Cell Distribution Width 26.4 % (11.5-14.0); White Blood Count 9.2 K/mm3 (4.0-10.5)
[2020-07-22] MEDS ORDERED: Ventolin Hfa MDI IH SCH (07:00)
[2020-07-22] MEDS ORDERED: EPINEPHRINE 0.3 MG IM SCH (07:00)
[2020-07-22] MEDS ORDERED: ANTIVERT 25 MG PO SCH (07:00)
[2020-07-22] MEDS ORDERED: GOLIMUMAB 50 MG IV SCH (07:00)
[2020-07-22] MEDS ORDERED: VENTOLIN COMMON CANISTER IH PRN (07:02)
[2020-07-22 07:05] LABS: ANION GAP 10.5 MEQ/L (5-15); BLOOD UREA NITROGEN 9 mg/dL (7-17); CHLORIDE 106 mmol/L (98-107); Calcium 8.9 mg/dL (8.4-10.2); Carbon Dioxide 22 mmol/L (22-30); Creatinine 1 0.41 mg/dL (0.52-1.04); EST GLOMERULAR FILTRATION RATE > 60.0 ML/MIN; Glucose 191 mg/dL (74-106); SODIUM 134 mmol/L (137-145)
[2020-07-22] MEDS ORDERED: MEDICATION INTERVENTION PO SCH (07:15)
[2020-07-22] MEDS ORDERED: EPINEPHRINE 1MG/ML AMP IM SCH (07:15)
[2020-07-22] MEDS: D5W/0.45NS W/ 20mEq KCl 1000 ML 1,000 ML IV SCH ×2 (08:20→18:04)
[2020-07-22] MEDS: Advair Hfa 230/21 Mcg COMMON CANISTER IH SCH ×2 (08:34→19:04)
[2020-07-22] MEDS: FEOSOL 325 MG PO SCH ×2 (09:22→21:41)
[2020-07-22] MEDS: CLARITIN 10 MG PO SCH (09:22)
[2020-07-22] MEDS: Calcium 500MG W/Vit D Tablet PO SCH (09:22)
[2020-07-22] MEDS: Lopressor 50 MG PO SCH (09:23)
[2020-07-22] MEDS: Prozac 20 MG PO SCH (09:23)
[2020-07-22] MEDS: VITAMIN D PO SCH (09:23)
[2020-07-22] MEDS: Lotensin 10 MG PO SCH (09:23)
[2020-07-22] MEDS: Vitamin B-12 500 MCG PO SCH (09:23)
[2020-07-22] MEDS: Pepcid 20 MG PO SCH ×2 (09:23→21:41)
[2020-07-22] MEDS: ENOXAPARIN SODIUM SQ SCH (09:44)
[2020-07-22] MEDS ORDERED: NON-FORMULARY ITEM (Benazepril Hcl [Lotensin] 40 MG) PO SCH (10:00)
[2020-07-22] MEDS ORDERED: VITAMIN D3 PO SCH (10:00)
[2020-07-22] MEDS ORDERED: [UNRECOGNIZED DRUG - OTHER] PO SCH (10:00)
[2020-07-22] MEDS ORDERED: NON-FORMULARY ITEM (Cholecalciferol (Vitamin D3) [Vitamin D3] 1,000 UNIT) PO SCH (10:00)
[2020-07-22] MEDS ORDERED: CALCIUM CARBONATE PO SCH (10:00)
[2020-07-22] MEDS ORDERED: [UNRECOGNIZED DRUG - OTHER] PO SCH (10:00)
[2020-07-22] MEDS ORDERED: NON-FORMULARY ITEM (Budesonide/Formoterol Fumarate [Symbicort 160-4.5 Mcg Inhaler] 2 PUFF) IH SCH (10:00)
--- NOTE | 2020-07-22 13:25 | OP ---
SURGERY DATE/TIME: 07/22/2020 1533 PREOPERATIVE DIAGNOSIS: Right colon cancer. POSTOPERATIVE DIAGNOSIS: Right colon cancer near perforating hepatic flexure 4 cm full thickness into the mesocolon anterior omentum. PROCEDURE: Right hemicolectomy with anastomosis. SURGEON: Yuri Kellogg M.D. [employer]ENT [employer]ITION RELATIONSHIP MANAGER: Rachael Cook NP. ANESTHESIA: General. COMPLICATIONS: None. ESTIMATED BLOOD LOSS: 50 cc. DRAINS: None. CONDITION: Stable. INDICATION: A patient with endoscopic exam showing near obstructing lesion in the hepatic flexure marked with tattoo dye. She was seen and examined in the office. She was immediately placed on the surgical schedule this week. She took a bowel prep. DESCRIPTION OF PROCEDURE: She was taken to OR. General anesthetic. Routine prep and drape. Time out performed. She had a previous open cholecystectomy quite some while ago. The incision was marked below this a little bit more medial, upper abdomen. She also had a gastric bypass a few years ago. A very limited incision just hand size was made and the lesion was almost immediately under the incision just a little to the right and above. With care and patience the right colon was mobilized. The duodenum was not violated. The kidney was not violated. The carol was not violated. The omentum was taken about its midline. The colon did not pull up very well because of her gastric jejunostomy. It looked like it was probably adequate for staple anastomosis. The omentum was left on the left side and the specimen was taken out en bloc. It was trying to crack open at the hepatic flexure, 4 inches of ileum mass area completed. The ileum came up easily. [id number] colon ileum. Staple did not quite fire. She was a little obese in general and was just a little thick towards into the cartridge despite rolling the small bowel onto the edge of the colon here at this location. This staple line was totally taken out. The end was sealed off both on the small bowel and the colon with a fresh JACQUELYN-staple cartridge and a [id number] hand sewn anastomosis was set up with posterior serosal of 3-0 PDS. A posterior layer of 3-0 mucosal muscle and anterior single layer of 3-0 PDS. Blood supply was excellent. It look excellent, laid excellent and it had no tension but then just slight spillage. The field was irrigated. The residual omentum brought down. Small bowel placed back in organized fashion. Anterior abdominal wall closed with single layer of 0 looped PDS subcutaneous sutures, irrigated, skin closed loosely with brii and edwina. The patient tolerated the procedure satisfactorily. Rachael Cook assisted the whole case.
[2020-07-22] MEDS ORDERED: NORCO 5/325 MG PO PRN (16:10)
[2020-07-22] MEDS: Morphine PCA 1 MG/ML 30 ML IV PRN (19:30)
[2020-07-22] MEDS: Neurontin 100 MG PO SCH (21:41)
[2020-07-23] MEDS: Morphine PCA 1 MG/ML 30 ML IV PRN ×2 (00:19→15:34)
[2020-07-23] MEDS: D5W/0.45NS W/ 20mEq KCl 1000 ML 1,000 ML IV SCH ×2 (03:49→14:25)
[2020-07-23] MEDS: Advair Hfa 230/21 Mcg COMMON CANISTER IH SCH ×2 (08:29→19:28)
[2020-07-23] MEDS: ENOXAPARIN SODIUM SQ SCH (12:16)
[2020-07-23] MEDS: Calcium 500MG W/Vit D Tablet PO SCH ×2 (13:29→14:54)
[2020-07-23] MEDS: CLARITIN 10 MG PO SCH ×2 (14:21→14:48)
[2020-07-23] MEDS: FEOSOL 325 MG PO SCH ×2 (14:21→21:22)
[2020-07-23] MEDS: Pepcid 20 MG PO SCH ×2 (14:47→21:22)
[2020-07-23] MEDS: Lotensin 10 MG PO SCH (14:48)
[2020-07-23] MEDS: Lopressor 50 MG PO SCH (14:48)
[2020-07-23] MEDS: Prozac 20 MG PO SCH (14:48)
[2020-07-23] MEDS: VITAMIN D PO SCH (14:49)
[2020-07-23] MEDS: Vitamin B-12 500 MCG PO SCH (14:49)
[2020-07-23] MEDS: MSIR 15 MG PO SCH ×2 (16:10→21:23)
[2020-07-23] MEDS: Neurontin 100 MG PO SCH (21:23)
[2020-07-24] MEDS: Morphine PCA 1 MG/ML 30 ML IV PRN ×2 (06:48→19:07)
[2020-07-24] MEDS: Advair Hfa 230/21 Mcg COMMON CANISTER IH SCH ×2 (07:49→18:56)
[2020-07-24] MEDS: Pepcid 20 MG PO SCH ×2 (09:28→21:16)
[2020-07-24] MEDS: Lotensin 10 MG PO SCH (09:28)
[2020-07-24] MEDS: VITAMIN D PO SCH (09:28)
[2020-07-24] MEDS: CLARITIN 10 MG PO SCH (09:29)
[2020-07-24] MEDS: Vitamin B-12 500 MCG PO SCH (09:29)
[2020-07-24] MEDS: Lopressor 50 MG PO SCH (09:29)
[2020-07-24] MEDS: Prozac 20 MG PO SCH (09:29)
[2020-07-24] MEDS: FEOSOL 325 MG PO SCH ×2 (09:29→21:16)
[2020-07-24] MEDS: Calcium 500MG W/Vit D Tablet PO SCH (09:32)
[2020-07-24] MEDS: MSIR 15 MG PO SCH ×3 (09:33→21:17)
[2020-07-24] MEDS: ENOXAPARIN SODIUM SQ SCH (09:33)
[2020-07-24] MEDS: Neurontin 100 MG PO SCH (21:17)
[2020-07-25] MEDS: Advair Hfa 230/21 Mcg COMMON CANISTER IH SCH ×2 (06:45→19:45)
[2020-07-25 08:24] LABS: ALBUMIN 3.6 g/dL (3.5-5.0); ALKALINE PHOSPHATASE 70 U/L (38-126); ANION GAP 11.5 MEQ/L (5-15); BLOOD UREA NITROGEN 11 mg/dL (7-17); CHLORIDE 102 mmol/L (98-107); Calcium 9.4 mg/dL (8.4-10.2); Carbon Dioxide 24 mmol/L (22-30); Creatinine 1 0.52 mg/dL (0.52-1.04); EST GLOMERULAR FILTRATION RATE > 60.0 ML/MIN; Glucose 107 mg/dL (74-106); Potassium 4.3 mmol/L (3.5-5.1); SGOT/AST 38 U/L (14-36); SGPT/ALT 19 U/L (0-35); SODIUM 133 mmol/L (137-145)
[2020-07-25 08:40] LABS: Absolute Neutrophil Ct (ANC) 3.63 (1.4-6.9); BASOPHIL % 0.1 % (0.0-0.4); Basophil (Absolute #) 0.01 (0-0.4); Eosinophil % 1.5 % (0.00-5.0); Eosinophil (Absolute #) 0.11 (0-0.5); Hematocrit 41.4 % (35-47); Hemoglobin 11.7 gm/dl (12.0-16.0); Lymphocyte (Absolute #) 3.15 (1.0-4.6); Lymphocytes % 41.9 % (24.0-44.0); Mean Cell Volume 84.1 fl (78-100); Mean Corpuscular Hemoglobin 23.8 pg (26-32); Mean Corpuscular Hgb Concent. 28.3 g/dl (32-36); Mean Platelet Volume 9.8 fl (7.5-11.0); Monocyte (Absolute #) 0.61 (0.0-1.3); Monocytes % 8.1 % (0.0-12.0); Neutrophil % 48.4 % (36.0-66.0); Platelet Count 219 K/mm3 (150-450); Red Blood Count 4.92 M/mm3 (4.1-5.4); White Blood Count 7.5 K/mm3 (4.0-10.5)
[2020-07-25] MEDS: VITAMIN D PO SCH (09:48)
[2020-07-25] MEDS: Vitamin B-12 500 MCG PO SCH (09:48)
[2020-07-25] MEDS: Lopressor 50 MG PO SCH (09:48)
[2020-07-25] MEDS: CLARITIN 10 MG PO SCH (09:48)
[2020-07-25] MEDS: Prozac 20 MG PO SCH (09:48)
[2020-07-25] MEDS: FEOSOL 325 MG PO SCH ×2 (09:48→20:27)
[2020-07-25] MEDS: Pepcid 20 MG PO SCH ×2 (09:48→20:28)
[2020-07-25] MEDS: Lotensin 10 MG PO SCH (09:49)
[2020-07-25] MEDS: ENOXAPARIN SODIUM SQ SCH (09:51)
[2020-07-25] MEDS: Calcium 500MG W/Vit D Tablet PO SCH (09:54)
[2020-07-25] MEDS: MSIR 15 MG PO SCH ×3 (09:54→20:28)
[2020-07-25 10:51] LABS: Slide Review 1 YES
[2020-07-25] MEDS: Morphine PCA 1 MG/ML 30 ML IV PRN (11:53)
[2020-07-25] MEDS: D5W/0.45NS W/ 20mEq KCl 1000 ML 1,000 ML IV SCH (17:17)
[2020-07-25] MEDS: Neurontin 100 MG PO SCH (20:28)
[2020-07-26] MEDS: Advair Hfa 230/21 Mcg COMMON CANISTER IH SCH (07:22)
[2020-07-26] MEDS: Morphine PCA 1 MG/ML 30 ML IV PRN (08:15)
[2020-07-26] MEDS: Lotensin 10 MG PO SCH (09:38)
[2020-07-26] MEDS: ENOXAPARIN SODIUM SQ SCH (09:38)
[2020-07-26] MEDS: MSIR 15 MG PO SCH ×2 (09:39→15:03)
[2020-07-26] MEDS: Vitamin B-12 500 MCG PO SCH (09:39)
[2020-07-26] MEDS: VITAMIN D PO SCH (09:39)
[2020-07-26] MEDS: Pepcid 20 MG PO SCH (09:39)
[2020-07-26] MEDS: Calcium 500MG W/Vit D Tablet PO SCH (09:39)
[2020-07-26] MEDS: Lopressor 50 MG PO SCH (09:39)
[2020-07-26] MEDS: Prozac 20 MG PO SCH (09:39)
[2020-07-26] MEDS: FEOSOL 325 MG PO SCH (09:39)
[2020-07-26] MEDS: CLARITIN 10 MG PO SCH (09:39)
[2020-07-26] MEDS ORDERED: VITAMIN B-1 100 MG PO SCH (10:00)
[2020-07-26 12:46] VITALS: O2SAT 93
[2020-07-26 16:25] VITALS: BP 128/58; PULSE 75
--- NOTE | 2020-08-04 08:36 | HP ---
DATE: 07/21/2020 HISTORY OF PRESENT ILLNESS: The patient presents to the office status post colonoscopy with Dr. Lechuga. It appears that he found a mass in the hepatic flexure and has performed biopsies with some tattooing at the site. Came back as adenocarcinoma moderately differentiated. She has been set up to see oncology and general surgery for this. She is a 70 year-old lady. Today, she is a little tender on exam. PAST MEDICAL HISTORY: Chronic obstructive pulmonary disease, rheumatoid arthritis, left breast cancer, iron deficiency anemia. CURRENT MEDICATIONS: Per chart. ALLERGIES: TYLENOL WITH CODEINE. PAST SURGERIES: Left breast lumpectomy, bariatric surgery, ventral hernia repair, bilateral knee replacement, tonsillectomy, cholecystectomy. SOCIAL HISTORY: None. FAMILY HISTORY: Father - Skin cancer. Mother - Heart disease. REVIEW OF SYSTEMS: CONSTITUTIONAL: Denies fever or chills. CHEST: Denies shortness of breath. CVS: Denies chest pain. ABDOMEN: Denies abdomen pain, nausea, vomiting, diarrhea, constipation, rectal bleeding. INTEGUMENTARY: Negative. PHYSICAL EXAMINATION: GENERAL: No acute distress. CHEST: Nonlabored. No shortness of breath. CVS: Regular rate and rhythm. ABDOMEN: Soft, mildly tender to palpation right side. EXTREMITIES: No edema. NEURO: Alert. PSYCH: Appropriate. IMPRESSION: 1. MODERATELY DIFFERENTIATED ADENOCARCINOMA OF THE COLON. PLAN: Open right hemicolectomy with Dr. Yuri Kellogg. This report was dictated for Dr. Kellogg by Rachael Cook NP.
== END 2020-07-26 17:30 | disposition home or self-care (01) | DRG 330 ==
LOC: MED SURG 12:26
PROVIDERS: ADMIT Surgery; ATTEND Surgery
PROC: 0DTF0ZZ Resection of Right Large Intestine, Open Approach (ICD-10-PCS; principal; 2020-07-22)
DX: C18.2 Malignant neoplasm of ascending colon (principal); C78.5 Secondary malignant neoplasm of large intestine and rectum; Z85.3 Personal history of malignant neoplasm of breast; J44.9 Chronic obstructive pulmonary disease, unspecified; D12.6 Benign neoplasm of colon, unspecified; Z79.899 Other long term (current) drug therapy
CPT/HCPCS: 36415; 80048; 80053; 81001; 85025; 85027; 86850; 86900; 86901; 87086; 88309; 94640; 94762; 99100; J0694; J1100; J1170; J1650; J1885; J2250; J2270; J2274; J2405; J2550; J2704; J3010; L0625; A9270-GY

== ENCOUNTER 2020-08-15 08:49 | Day surgery (SDC) | payer MEDICARE ==
[~2020-08-15 08:49] MED LIST changes: -LIDOCAINE HCL 2% 100 MG/5 ML ONE; +Lactated Ringers 1,000 ML IV ONE; -Marcaine 0.5% SDV 10 ML ONE; +XYLOCAINE 1% HCL 20 ML MDV ONE
[2020-08-15] MEDS ORDERED: CEFAZOLIN 2 GM-D5W BAG** 2 GM/50 ML ML IV SCH (09:00)
[2020-08-15] MEDS ORDERED: Lactated Ringers 1,000 ML IV SCH (09:00)
[2020-08-15 09:33] VITALS: O2SAT 95
[2020-08-15] MEDS ORDERED: SUBLIMAZE 100 MCG/2 ML ONE (10:40)
[2020-08-15] MEDS ORDERED: Versed 2 MG/2 ML Injection ONE (10:40)
[2020-08-15] MEDS ORDERED: DIPRIVAN 200 MG/20 ML IV ONE ×2 (10:40→11:54)
--- NOTE | 2020-08-15 12:49 | XRAY ---
Indication: Port placement. Intraoperative fluoroscopy provided for 5 seconds. 2 digital spot images submitted for interpretation demonstrates left sided Port-A-Cath with tip projecting over the SVC. Correlate with intraoperative findings/report.
--- NOTE | 2020-08-15 12:52 | XRAY ---
Indication: Postop port placement. Comparison: May 27, 2020. Portable chest demonstrates new left Port-A-Cath with tip projecting over the SVC. Remaining heart and lungs unremarkable. Bony thorax intact again with degenerative changes. Impression: New left Port-A-Cath without complications. No acute cardiopulmonary abnormalities.
[2020-08-15 13:42] VITALS: BP 128/65; PULSE 72
--- NOTE | 2020-08-15 14:23 | HP ---
Please see the written H&P as well in the chart. HISTORY: This is a patient who presents for a PICC. She has colon cancer and needs a port for access for chemotherapy. PAST MEDICAL/SURGICAL HISTORY: Includes chronic obstructive pulmonary disease, breast cancer, colon cancer, colectomy, tubal ligation. MEDICATIONS: Medications reviewed and all listed in the medication reconciliation. ALLERGIES: TYLENOL WITH CODEINE. TAPE. PHYSICAL EXAMINATION: GENERAL: No acute distress. CVS: Regular rate and rhythm. PULMONARY: Nonlabored. ABDOMEN: Soft, nontender. EXTREMITIES: Normal. DIAGNOSIS: Colon cancer. PLAN: Central venous device.
--- NOTE | 2020-08-15 15:44 | OP ---
SURGERY DATE/TIME: 08/15/2020 1143 PREOPERATIVE DIAGNOSIS: Colon cancer, needs [facility] central venous access. POSTOPERATIVE DIAGNOSIS: Colon cancer, needs director long term care central venous access. PROCEDURE: Left subclavian vein fluoroscopic guided Port-A-Cath placement. SURGEON: Nikki Kellogg M.D. ANESTHESIA: MAC. ESTIMATED BLOOD LOSS: Minimal. COMPLICATIONS: None. SPECIMENS: None. INDICATION: This is a 70 year-old female who needs a port for chemotherapy access. Risks, benefits, alternatives discussed with her preoperatively. All remaining questions answered. DESCRIPTION OF PROCEDURE: She was then brought back to the operative suite. Anesthesia induced. Prepped and draped in the usual sterile fashion. A complete time out performed. Left subclavian vein accessed with dark venous nonpulsatile blood return. A wire carefully threaded into the subclavian vein. We then confirmed placement with fluoroscopy. A port pocket was then created inferiorly. Making incision through skin and elevating the subcutaneous tissue pocket. The port was then sutured in place on stay hemostat using Prolene suture. We then tunneled our catheter and measured this along the chest wall. Cut this to the appropriate length. Fit this tightly onto the port. The dilator placed. The catheter placed in through dilator, tear away completely removed. The port was flushed well and confirmed under fluoroscopy to be in the vena cava. Entire trajectory of the port looked excellent. No issues. Sutures tied down, closed with 3-0 Vicryl, running 4-0 subcuticular Monocryl stitch and then buried 4-0 at the access site. The patient tolerated the procedure very well. Postoperative chest x-ray showed good placement without complications. The patient will be discharged home and will be following up with me as an outpatient.
== END 2020-08-15 13:40 | disposition home or self-care (01) ==
LOC: SDC 08:49
PROVIDERS: ATTEND Surgery
DX: Z45.2 Encounter for adjustment and management of vascular access device (principal); C18.9 Malignant neoplasm of colon, unspecified; J44.9 Chronic obstructive pulmonary disease, unspecified; Z85.3 Personal history of malignant neoplasm of breast; Z79.899 Other long term (current) drug therapy
CPT/HCPCS: 36571; 71045; 77001; C1788; J0690; J1642; J2250; J2704; J3010

== ENCOUNTER 2020-09-11 01:09 | Observation (INO) | payer MEDICARE ==
[2020-09-11] MEDS ORDERED: Sodium Chloride 0.9% 1000 ML 1,000 ML IV STA (01:20)
[2020-09-11] MEDS ORDERED: Zofran 4 MG/2 ML VIAL IV ONE (01:20)
[2020-09-11] MEDS ORDERED: Hydromorphone 1 mg/ml Injection IV ONE (01:20)
[2020-09-11] MEDS ORDERED: PROTONIX 40 MG IV IV ONE ×2 (01:20→01:32)
--- NOTE | 2020-09-11 01:28 | ERPHSYRPT ---
- History of Present Illness Time Seen by Provider: 09/11/20 01:20 Historian: patient, EMS Patient Subjective Stated Complaint: "I've been feeling bad all day and Dr. Rivera told me to come in." Triage Nursing Assessment: Patient reported that she started having abdominal pain while at home and moderate nausea. Patient reported diffuse abdominal pain described as constant. Located throughout the abdomen. Denied any alleviating/aggravating factors. Reported one episodse of vomiting at home. Denied any recent sick contacts. Denied chest pain, shortness of breath, headache, or dizziness. Pupils 3mm brisk direct and consensual reaction to. Symmetrical chest expansion. heart tones regular/clear with regular rate and rhythm. Lungs clear to auscultation with adequate airflow. Abdomen obese non- distended with normoactive bowel sounds. Peipheral pulses +2 bilateral. No noted dependent edema. Physician History: This is an obese 70-year-old white female who has a history of COPD and rheumatoid arthritis and presents with diffuse abdominal pain that is present throughout the day on 09/10/2020. Patient underwent a right hemicolectomy with primary anastomosis on 07/22/2020 for an adenocarcinoma. This was performed by Dr. Kellogg. Patient is a patient of Dr. Lechuga (primary care physician) as well as Dr. Rivera (oncologist). Patient receives intravenous and oral chemotherapy. She is on a 2-week on and 1 week off schedule. She is on the 2- week schedule at this time but did not take her oral chemotherapy agent today because of the nausea. She had a single episode of vomiting earlier on 09/10/2020. Patient denies shortness of breath she denies chest pain. She has no urinary tract infection symptoms. She only had a small amount of clear liquids today. She ate a meal on 09/09/2020. That was her last solid food intake. Patient was told by her oncologist to come into the emergency department for evaluation if her symptoms persist. They persisted and patient was brought in to the emergency department by ambulance. Timing/Duration: today (09/10/2020), intermittent, gradual onset Activities at Onset: none Quality: aching Abdominal Pain Onset Location: generalized abdomen Pain Radiation: no radiation Severity of Pain-Max: mild Severity of Pain-Current: mild Modifying Factors: Improves With: vomiting Associated Symptoms: loss of appetite, nausea, vomiting Previous symptoms: no prior history Allergies/Adverse Reactions: codeine [Codeine] Adverse Reaction (Intermediate, Verified 09/11/20 01:11) Nausea and Vomiting, light headed bandaids Adverse Reaction (Mild, Uncoded 09/11/20 01:11) redness/swelling Home Medications: Epinephrine [Epipen] 0.3 mg IM UD 01/31/16 [History] Fluoxetine HCl [Prozac] 20 mg PO DAILY 01/31/16 [History] Benazepril HCl [Lotensin] 40 mg PO DAILY 12/20/16 [History] Cholecalciferol (Vitamin D3) [Vitamin D3] 1,000 unit PO DAILY 12/20/16 [History] Albuterol 8 gm Mdi Hfa [Ventolin Hfa MDI] 2 puff IH .PRN 07/03/17 [History] Loratadine 10 mg [Claritin 10 mg] 10 mg PO DAILY 07/03/17 [History] Metoprolol Tartrate 50 mg [Lopressor 50 MG] 2 tab PO DAILY 08/22/17 [History] Gabapentin 100 mg PO HS 11/11/17 [History] Budesonide/Formoterol Fumarate [Symbicort 160-4.5 Mcg Inhaler] 2 puff IH BID 07/05/20 [History] Morphine Sulfate Ir 15 mg [Msir 15 mg] 15 mg PO QID 07/05/20 [History] Calcium Carbonate/Vitamin D3 [Calcium 500 mg Chewable Tablet] 2 each PO BID 07/20/20 [History] Cyanocobalamin 500 Mcg [Vitamin B-12 500 MCG] 500 mcg PO DAILY 07/20/20 [History] Famotidine 20 mg [Pepcid 20 MG] 20 mg PO BID 07/20/20 [History] Glucosam/Paulo-Msm1/C/Fransisco/Bosw [Osteo Bi-Flex Caplet] 1 each PO DAILY 07/20/20 [History] Golimumab [Simponi Aria] 50 mg IV UD 07/20/20 [History] Thiamine HCl [Vitamin B-1] 125 mg PO WEEKLY 07/20/20 [History] Meclizine HCl 25 mg [Antivert 25 mg] 1 tab PO DAILY PRN 09/11/20 [History] Ondansetron HCl 1 tab PO Q6H PRN 09/11/20 [History] Potassium Chloride 10 Meq Tab* [Klor Con 10 MEQ] 1 tab PO DAILY 09/11/20 [History] Prochlorperazine Maleate 10 mg [Compazine 10 mg] 1 tab PO Q6H PRN 09/11/20 [History] Hx Tetanus, Diphtheria Vaccination/Date Given: Yes Hx Influenza Vaccination/Date Given: Yes Hx Pneumococcal Vaccination/Date Given: Yes Travel Risk - International Travel Have you traveled outside of the country in past 3 weeks: No - Coronavirus Screening Are you exhibiting any of the following symptoms?: No Symptoms: Vomiting/Diarrhea Close contact with a COVID-19 positive Pt in past 14-21 Days: No - Review of Systems Constitutional: No Symptoms Eyes: No Symptoms Ears, Nose, & Throat: No Symptoms Respiratory: No Symptoms Abdominal/Gastrointestinal: Abdominal Pain, Nausea, Vomiting, No Diarrhea Genitourinary Symptoms: No Symptoms Musculoskeletal: No Symptoms Skin: No Symptoms Neurological: No Symptoms Psychological: No Symptoms Endocrine: No Symptoms Hematologic/Lymphatic: No Symptoms Immunological/Allergic: No Symptoms All Other Systems: Reviewed and Negative - Past Medical History Pertinent Past Medical History: Yes Neurological History: No Pertinent History ENT History: No Pertinent History Cardiac History: High Cholesterol, Hypertension Respiratory History: COPD Endocrine Medical History: No Pertinent History Musculoskeletal History: Rheumatoid Arthritis GI Medical History: Colorectal Cancer, Diverticulosis, GERD, Polyps History: No Pertinent History Psycho-Social History: Anxiety Female Reproductive Disorders: Breast Cancer Other Medical History: BILATERAL Knee replacement 2008, BARIATRIC SURGERY 2009; BREAST CA W/ LUMPECTOMY 2003, colonoscopy, rheumatoid arthritis - Past Surgical History Past Surgical History: Yes Neuro Surgical History: No Pertinent History Cardiac: No Pertinent History Respiratory: No Pertinent History Gastrointestinal: Hernia Repair, Other Genitourinary: No Pertinent History Musculoskeletal: Joint Replacement, Orthopedic Surgery Female Surgical History: Tubal Ligation, Mastectomy Other Surgical History: T&A,Bjorn knee replacement, umbil. hernior.,bariatric surgery, breast cancer with partial mastectomy left, lumpectomy right breast, tubal - Social History Smoking Status: Former smoker Exposure to second hand smoke: Yes Drug Use: none Patient Lives Alone: Yes Significant Family History: heart disease, cancer - Nursing Vital Signs Nursing Vital Signs: Initial Vital Signs Temperature 99.5 F 09/11/20 01:09 Pulse Rate 79 09/11/20 01:09 Respiratory Rate 18 09/11/20 01:09 Blood Pressure 101/78 09/11/20 01:09 O2 Sat by Pulse Oximetry 96 09/11/20 01:09 Pain Scale Pain Intensity 2 - Physical Exam General Appearance: no apparent distress, alert, anxiety Eye Exam: PERRL/EOMI, eyes nml inspection Ears, Nose, Throat Exam: normal ENT inspection, moist mucous membranes Neck Exam: normal inspection, non-tender, supple, full range of motion Respiratory Exam: normal breath sounds, lungs clear, airway intact, No chest tenderness, No respiratory distress Cardiovascular Exam: regular rate/rhythm, normal heart sounds, normal peripheral pulses Gastrointestinal/Abdomen Exam: soft, normal bowel sounds, tenderness, No guarding, No rebound Pelvic Exam: not done Rectal Exam: not done Back Exam: normal inspection, normal range of motion, No CVA tenderness, No v ertebral tenderness Extremity Exam: normal inspection, normal range of motion, pelvis stable Neurologic Exam: alert, oriented x 3, cooperative, 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 There are PVCs present which is persistent compared to the EKG dated 07/21/2020. There is also prolonged OR interval which is also persistent since the comparison EKG dated 2019.) Ordered Tests: Active Orders 24 hr Category Date Time Status IV Insertion STAT Care 09/11/20 01:20 Active ABDOMEN AND PELVIS W/0 CONTRAS [CT] Stat Exams 09/11/20 01:21 Taken AMYLASE Stat Lab 09/11/20 01:39 Completed CBC W DIFF Stat Lab 09/11/20 01:39 Completed CMP Stat Lab 09/11/20 01:39 Completed CULTURE,URINE Stat Lab 09/11/20 01:21 Received LIPASE Stat Lab 09/11/20 01:39 Completed Lactic Acid Stat Lab 02/07/21 01:35 Completed MAG [MAGNESIUM] Stat Lab 09/11/20 01:30 Completed TROPONIN Q3H Lab 09/11/20 01:30 Completed TROPONIN Q3H Lab 09/11/20 03:18 Completed TROPONIN Q3H Lab 09/11/20 09:15 Ordered TROPONIN Q3H Lab 09/11/20 12:15 Ordered TROPONIN Q3H Lab 09/11/20 15:15 Ordered UA W/RFX UR CULTURE Stat Lab 09/11/20 01:21 Completed Transfer Order Routine Transfer 09/11/20 Ordered Medication Summary Discontinued Medications Generic Name Dose Route Start Last Admin Trade Name Freq PRN Reason Stop Dose Admin Hydromorphone HCl 0.5 mg 09/11/20 01:20 09/11/20 01:34 Hydromorphone 1 Mg/Ml Injection IV 09/11/20 01:21 0.5 mg STAT ONE Administration Hydromorphone HCl Confirm 09/11/20 01:32 Hydromorphone 1 Mg/Ml Injection Administered 09/11/20 01:33 Dose 1 mg .ROUTE .STK-MED ONE Sodium Chloride 1,000 mls @ 999 mls/hr 09/11/20 01:20 09/11/20 03:00 Sodium Chloride 0.9% 1000 Ml IV 09/11/20 02:20 Infused .Q1H1M STA Infusion Sodium Chloride Confirm 09/11/20 01:32 Sodium Chloride 0.9% 1000 Ml Administered 09/11/20 01:33 Dose 1,000 mls @ ud .ROUTE .STK-MED ONE Potassium Chloride 20 meq in 100 mls @ 50 mls/hr 09/11/20 01:59 09/11/20 02:02 Potassium Chloride 20 Meq In Water 100ml IV 09/11/20 03:58 50 mls/hr STAT ONE Administration Potassium Chloride Confirm 09/11/20 02:02 Potassium Chloride 20 Meq In Water 100ml Administered 09/11/20 02:03 Dose 100 mls @ ud IV .STK-MED ONE Piperacillin Sod/Tazobactam 100 mls @ 200 mls/hr 09/11/20 03:00 09/11/20 03:05 Sod 3.375 gm/ Sodium Chloride IV 09/11/20 03:29 200 mls/hr STAT ONE Administration Sodium Chloride Confirm 09/11/20 03:03 Sodium Chloride 100ml Mini-Bag Plus Administered 09/11/20 03:04 Dose 100 mls @ ud IV .STK-MED ONE Ondansetron HCl 4 mg 09/11/20 01:20 09/11/20 01:34 Zofran 4 Mg/2 Ml Vial IV 09/11/20 01:21 4 mg STAT ONE Administration Ondansetron HCl Confirm 09/11/20 01:32 Zofran 4 Mg/2 Ml Vial Administered 09/11/20 01:33 Dose 4 mg .ROUTE .STK-MED ONE Pantoprazole Sodium 40 mg 09/11/20 01:20 09/11/20 01:34 Protonix 40 Mg Iv IV 09/11/20 01:21 40 mg STAT ONE Administration Pantoprazole Sodium Confirm 09/11/20 01:32 Protonix 40 Mg Iv Administered 09/11/20 01:33 Dose 40 mg IV .STK-MED ONE Piperacillin Sod/Tazobactam Sod Confirm 09/11/20 03:03 Zosyn 3.375 Gm Vial Administered 09/11/20 03:04 Dose 3.375 gm IV .STK-MED ONE Potassium Chloride Confirm 09/11/20 02:57 Klor Con 10 Meq Administered 09/11/20 02:58 Dose 20 meq PO .STK-MED ONE Potassium Chloride 20 meq 09/11/20 03:00 09/11/20 03:05 Klor Con 10 Meq PO 09/11/20 03:01 20 meq STAT ONE Administration Lab/Rad Data: Laboratory Result Diagrams 09/11/20 01:39 09/11/20 01:39 Laboratory Results 09/11/20 09/11/20 09/11/20 Range/Units 03:18 01:39 01:39 WBC 15.3 H (4.0-10.5) K/mm3 RBC 5.47 H (4.1-5.4) M/mm3 Hgb 14.1 (12.0-16.0) gm/dl Hct 45.0 (35-47) % MCV 82.3 (78-100) fl MCH 25.8 L (26-32) pg MCHC 31.3 L (32-36) g/dl RDW 18.8 H (11.5-14.0) % Plt Count 211 (150-450) K/mm3 MPV 9.6 (7.5-11.0) fl Gran % 76.1 H (36.0-66.0) % Eos # (Auto) 0.01 (0-0.5) Absolute Lymphs (auto) 2.34 (1.0-4.6) Absolute Monos (auto) 1.29 (0.0-1.3) Lymphocytes % 15.3 L (24.0-44.0) % Monocytes % 8.4 (0.0-12.0) % Eosinophils % 0.1 (0.00-5.0) % Basophils % 0.1 (0.0-0.4) % Absolute Granulocytes 11.61 H (1.4-6.9) Basophils # 0.02 (0-0.4) Sodium 134 L (137-145) mmol/L Potassium 2.8 L* (3.5-5.1) mmol/L Chloride 97 L (98-107) mmol/L Carbon Dioxide 25 (22-30) mmol/L Anion Gap 14.9 (5-15) MEQ/L BUN 9 (7-17) mg/dL Creatinine 0.45 L (0.52-1.04) mg/dL Estimated GFR > 60.0 ML/MIN Glucose 149 H (74-106) mg/dL Lactic Acid (0.4-2.0) Calcium 9.4 (8.4-10.2) mg/dL Magnesium (1.6-2.3) mg/dL Total Bilirubin 0.70 (0.2-1.3) mg/dL AST 68 H (14-36) U/L ALT 54 H (0-35) U/L Alkaline Phosphatase 105 (38-126) U/L Troponin I 0.023 (0.000-0.034) ng/mL Serum Total Protein 7.5 (6.3-8.2) g/dL Albumin 4.1 (3.5-5.0) g/dL Amylase 30 (30-110) U/L Lipase 21 L (23-300) U/L Urine Color (YELLOW) Urine Appearance (CLEAR) Urine pH (5-6) Ur Specific [place] (1.005-1.025) Urine Protein (Negative) Urine Ketones (NEGATIVE) Urine Blood (0-5) Mike/ul Urine Nitrite (NEGATIVE) Urine Bilirubin (NEGATIVE) Urine Urobilinogen (0-1) mg/dL Ur Leukocyte Esterase (NEGATIVE) Urine WBC (Auto) (0-5) /HPF Urine RBC (Auto) (0-2) /HPF U Epithel Cells (Auto) (FEW) /HPF Urine Bacteria (Auto) (NEGATIVE) /HPF Urine Mucus (Auto) (NEGATIVE) /HPF Urine Culture Reflexed (NO) Urine Glucose (NEGATIVE) mg/dL 09/11/20 09/11/20 09/11/20 Range/Units 01:35 01:30 01:30 WBC (4.0-10.5) K/mm3 RBC (4.1-5.4) M/mm3 Hgb (12.0-16.0) gm/dl Hct (35-47) % MCV (78-100) fl MCH (26-32) pg MCHC (32-36) g/dl RDW (11.5-14.0) % Plt Count (150-450) K/mm3 MPV (7.5-11.0) fl Gran % (36.0-66.0) % Eos # (Auto) (0-0.5) Absolute Lymphs (auto) (1.0-4.6) Absolute Monos (auto) (0.0-1.3) Lymphocytes % (24.0-44.0) % Monocytes % (0.0-12.0) % Eosinophils % (0.00-5.0) % Basophils % (0.0-0.4) % Absolute Granulocytes (1.4-6.9) Basophils # (0-0.4) Sodium (137-145) mmol/L Potassium (3.5-5.1) mmol/L Chloride (98-107) mmol/L Carbon Dioxide (22-30) mmol/L Anion Gap (5-15) MEQ/L BUN (7-17) mg/dL Creatinine (0.52-1.04) mg/dL Estimated GFR ML/MIN Glucose (74-106) mg/dL Lactic Acid 1.2 (0.4-2.0) Calcium (8.4-10.2) mg/dL Magnesium 2.0 (1.6-2.3) mg/dL Total Bilirubin (0.2-1.3) mg/dL AST (14-36) U/L ALT (0-35) U/L Alkaline Phosphatase (38-126) U/L Troponin I 0.019 (0.000-0.034) ng/mL Serum Total Protein (6.3-8.2) g/dL Albumin (3.5-5.0) g/dL Amylase (30-110) U/L Lipase (23-300) U/L Urine Color (YELLOW) Urine Appearance (CLEAR) Urine pH (5-6) Ur Specific [place] (1.005-1.025) Urine Protein (Negative) Urine Ketones (NEGATIVE) Urine Blood (0-5) Mike/ul Urine Nitrite (NEGATIVE) Urine Bilirubin (NEGATIVE) Urine Urobilinogen (0-1) mg/dL Ur Leukocyte Esterase (NEGATIVE) Urine WBC (Auto) (0-5) /HPF Urine RBC (Auto) (0-2) /HPF U Epithel Cells (Auto) (FEW) /HPF Urine Bacteria (Auto) (NEGATIVE) /HPF Urine Mucus (Auto) (NEGATIVE) /HPF Urine Culture Reflexed (NO) Urine Glucose (NEGATIVE) mg/dL 09/11/20 Range/Units 01:21 WBC (4.0-10.5) K/mm3 RBC (4.1-5.4) M/mm3 Hgb (12.0-16.0) gm/dl Hct (35-47) % MCV (78-100) fl MCH (26-32) pg MCHC (32-36) g/dl RDW (11.5-14.0) % Plt Count (150-450) K/mm3 MPV (7.5-11.0) fl Gran % (36.0-66.0) % Eos # (Auto) (0-0.5) Absolute Lymphs (auto) (1.0-4.6) Absolute Monos (auto) (0.0-1.3) Lymphocytes % (24.0-44.0) % Monocytes % (0.0-12.0) % Eosinophils % (0.00-5.0) % Basophils % (0.0-0.4) % Absolute Granulocytes (1.4-6.9) Basophils # (0-0.4) Sodium (137-145) mmol/L Potassium (3.5-5.1) mmol/L Chloride (98-107) mmol/L Carbon Dioxide (22-30) mmol/L Anion Gap (5-15) MEQ/L BUN (7-17) mg/dL Creatinine (0.52-1.04) mg/dL Estimated GFR ML/MIN Glucose (74-106) mg/dL Lactic Acid (0.4-2.0) Calcium (8.4-10.2) mg/dL Magnesium (1.6-2.3) mg/dL Total Bilirubin (0.2-1.3) mg/dL AST (14-36) U/L ALT (0-35) U/L Alkaline Phosphatase (38-126) U/L Troponin I (0.000-0.034) ng/mL Serum Total Protein (6.3-8.2) g/dL Albumin (3.5-5.0) g/dL Amylase (30-110) U/L Lipase (23-300) U/L Urine Color YELLOW (YELLOW) Urine Appearance SLIGHTLY CLOUDY (CLEAR) Urine pH 6.0 (5-6) Ur Specific [place] 1.015 (1.005-1.025) Urine Protein 30 (Negative) Urine Ketones SMALL (NEGATIVE) Urine Blood SMALL (0-5) Mike/ul Urine Nitrite NEGATIVE (NEGATIVE) Urine Bilirubin NEGATIVE (NEGATIVE) Urine Urobilinogen 2 (0-1) mg/dL Ur Leukocyte Esterase NEGATIVE (NEGATIVE) Urine WBC (Auto) 3-5 (0-5) /HPF Urine RBC (Auto) 6-10 (0-2) /HPF U Epithel Cells (Auto) NONE (FEW) /HPF Urine Bacteria (Auto) RARE (NEGATIVE) /HPF Urine Mucus (Auto) MANY (NEGATIVE) /HPF Urine Culture Reflexed YES (NO) Urine Glucose NEGATIVE (NEGATIVE) mg/dL - Progress Progress: improved, pain not gone completely, re-examined Progress Note: 09/11/20 03:03 Medical decision making: This patient suddenly began complaining of right-sided chest pain with infusion of potassium. She denies shortness of breath. We stopped the potassium infusion and an EKG was obtained. There was PVCs present prolonged OR interval but no acute ischemic changes. CAT scan of the abdomen and pelvis without intravenous or oral contrast was read by radiology. There is a mass with mesenteric haziness at the anastomotic site suggesting abscess. This in combination with an elevated white count suggest infection. Her lactic acid level is normal. We will change her potassium to oral supplementation. We will infuse Zosyn interval venously. We will check a troponin level. If the troponin level is normal we will plan on contacting the hospitalist for admission. 09/11/20 04:[address] Aguiar who is covering for Dr. Lechuga. I reviewed the patient history, condition, EKG results as well as the lab and CAT scan of the abdomen and pelvis results. Patient will be admitted to inpatient and we will obtain a surgical consultation, give oral potassium, IV hydration, and intravenous antibiotics as well as antiemetics and pain medication. We will repeat the labs. Discussed with : Ricky Counseled pt/family regarding: lab results, diagnosis, rad results - Departure Departure Disposition: In-patient Admission Clinical Impression: Abdominal pain, Leukocytosis, Intra-abdominal abscess post-procedure, Hypokalemia Condition: Stable Critical Care Time: No
[2020-09-11] MEDS ORDERED: Zofran 4 MG/2 ML VIAL ONE (01:32)
[2020-09-11] MEDS ORDERED: Hydromorphone 1 mg/ml Injection ONE (01:32)
[2020-09-11] MEDS ORDERED: Sodium Chloride 0.9% 1000 ML 1,000 ML ONE (01:32)
[2020-09-11 01:49] LABS: Absolute Neutrophil Ct (ANC) 11.61 (1.4-6.9); BASOPHIL % 0.1 % (0.0-0.4); Basophil (Absolute #) 0.02 (0-0.4); Eosinophil % 0.1 % (0.00-5.0); Eosinophil (Absolute #) 0.01 (0-0.5); Hemoglobin 14.1 gm/dl (12.0-16.0); Lymphocyte (Absolute #) 2.34 (1.0-4.6); Lymphocytes % 15.3 % (24.0-44.0); Mean Cell Volume 82.3 fl (78-100); Mean Corpuscular Hemoglobin 25.8 pg (26-32); Mean Corpuscular Hgb Concent. 31.3 g/dl (32-36); Mean Platelet Volume 9.6 fl (7.5-11.0); Monocyte (Absolute #) 1.29 (0.0-1.3); Monocytes % 8.4 % (0.0-12.0); Neutrophil % 76.1 % (36.0-66.0); Platelet Count 211 K/mm3 (150-450); Red Blood Count 5.47 M/mm3 (4.1-5.4); Red Cell Distribution Width 18.8 % (11.5-14.0); White Blood Count 15.3 K/mm3 (4.0-10.5)
[2020-09-11 01:56] LABS: ALBUMIN 4.1 g/dL (3.5-5.0); ALKALINE PHOSPHATASE 105 U/L (38-126); AMYLASE 30 U/L (30-110); ANION GAP 14.9 MEQ/L (5-15); BLOOD UREA NITROGEN 9 mg/dL (7-17); CHLORIDE 97 mmol/L (98-107); Calcium 9.4 mg/dL (8.4-10.2); Carbon Dioxide 25 mmol/L (22-30); Creatinine 1 0.45 mg/dL (0.52-1.04); EST GLOMERULAR FILTRATION RATE > 60.0 ML/MIN; Glucose 149 mg/dL (74-106); LIPASE 21 U/L (23-300); SGOT/AST 68 U/L (14-36); SGPT/ALT 54 U/L (0-35); SODIUM 134 mmol/L (137-145); Total Protein 7.5 g/dL (6.3-8.2)
[2020-09-11 01:58] LABS: Potassium 2.8 mmol/L (3.5-5.1)
[2020-09-11] MEDS ORDERED: POTASSIUM CHLORIDE 20 mEq IN WATER 100ML 20 MEQ/100 ML BAG IV ONE (01:59)
[2020-09-11] MEDS ORDERED: POTASSIUM CHLORIDE 20 mEq IN WATER 100ML 100 ML IV ONE (02:02)
[2020-09-11] MEDS ORDERED: Klor Con 10 MEQ PO ONE ×2 (02:57→03:00)
[2020-09-11] MEDS ORDERED: Zosyn 3.375 GM Vial 3.375 GM in Sodium Chloride 100ML MINI-BAG PLUS 100 ML IV ONE (03:00)
[2020-09-11] MEDS ORDERED: Sodium Chloride 100ML MINI-BAG PLUS 100 ML IV ONE (03:03)
[2020-09-11] MEDS ORDERED: Zosyn 3.375 GM Vial IV ONE (03:03)
[2020-09-11 03:53] LABS: Appearance SLIGHTLY CLOUDY (CLEAR); Bacteria RARE /HPF (NEGATIVE); Bilirubin NEGATIVE (NEGATIVE); Blood SMALL Ery/ul (0-5); Glucose NEGATIVE (NEGATIVE); Ketones SMALL (NEGATIVE); Leukocyte Esterase NEGATIVE (NEGATIVE); Mucus MANY /HPF (NEGATIVE); Nitrite NEGATIVE (NEGATIVE); Protein,Urine Dip 30 (Negative); Specific Gravity 1.015 (1.005-1.025); Urobilinogen 2 mg/dL (0-1)
[2020-09-11] MEDS ORDERED: MORPHINE SULFATE 4 MG INJ IV PRN ×2 (04:23→10:44)
[2020-09-11] MEDS ORDERED: Sodium Chloride 0.9% 1000 ML 1,000 ML IV SCH (04:23)
[2020-09-11] MEDS ORDERED: FEVERALL 650 MG PR PRN (04:23)
[2020-09-11] MEDS ORDERED: Zofran 4 MG/2 ML VIAL IV PRN (04:23)
[2020-09-11] MEDS ORDERED: PROTONIX 40 MG IV IV SCH (04:30)
[2020-09-11] MEDS ORDERED: Zosyn 3.375 GM Vial 3.375 GM in Sodium Chloride 100ML MINI-BAG PLUS 100 ML IV SCH ×2 (06:00→12:00)
--- NOTE | 2020-09-11 07:54 | XRAY ---
Indication: Abdomen pain, nausea, vomiting, diarrhea. Multiple contiguous axial images obtained through the abdomen and pelvis without contrast as ordered. Comparison: July 08, 2020. Lung bases again demonstrates mild bibasilar atelectasis/scarring and right base calcified granuloma. No infiltrate or effusion. Heart is not enlarged. Againbypass surgery and cholecystectomy. Noncontrasted stomach and bowel loops remain nonobstructed. Interval partial right hemicolectomy with a 3.6 x 4.7 x 4.1 cm round masslike opacity at the anastomosis with surrounding pericolonic stranding concerning for inflammatory/infectious process, possible abscess. No free air. Stable ascending and sigmoid diverticulosis. Stable nonobstructing bilateral renal microcalculi. Remaining liver, pancreas, spleen, adrenal glands, kidneys, ureters, bladder, and uterus appear unremarkable for noncontrast exam. There remains moderate aortoiliac calcifications without AAA. Osseous structures intact again with mild/moderate multilevel degenerative spondylosis. Right midabdomen demonstrates abdominal postsurgical changes without suspicious fluid/air collection. Impression: 1. Status post right hemicolectomy with abdominal postsurgical changes. There is mass at the anastomosis with surrounding stranding concerning for abscess. 2. Again nonobstructing bilateral renal microcalculi and scattered colonic diverticulosis. Comment: Preliminary interpretation was made by [facility]. No critical discrepancy.
[2020-09-11] MEDS ORDERED: Lactated Ringers 1,000 ML IV SCH (09:30)
[2020-09-11] MEDS ORDERED: Klor Con 10 MEQ PO SCH (10:00)
--- NOTE | 2020-09-11 10:52 | PCM.HP ---
History of Present Illness - Chief Complaint Chief Complaint: Intra-abdominal abscess History of Present Illness: is a 70 year old female pt of Dr. Lechuga with recent adenocarcinoma of the colon, COPD, and RA who was admitted through ER with abd/vomiting and possible intraabdominal abscess. She had low iron with Dr. Rivera and had a colonoscopy with Dr. Lechuga which showed a mass. Dr. Marco Antonio Kellogg did R hemicolectomy on 07/22/20 with reanastamosis. She has been 2 wks on, 1 wk off on IV and po chemotherapy (currently this is an "on" week). She did skip her po chemo 2d ago. Has been feeling badly for the past 2 weeks, with periumbilical/epigastric pain which was intermittent but daily, 5/10, wtih some nausea and vomiting (last vomiting yesterday). Denies fever. Currently pain is 3/10; improved with IV morphine. Currently she is also c/o back pain, she thinks due to her bed. She is denying chest pain this morning. Has had 2 troponins that have bumped slightly. EKG in ER non acute - currently has EKG pending. - Review of Systems Cardiac: Edema (chronic, LE) Abdominal/Gastrointestinal: Abdominal Pain, Nausea, Vomiting, Diarrhea (chronic) Psychological: No Anxiety, No Depression, No Suicidal Ideations Hematologic/Lymphatic: Anemia All Other Systems: Reviewed and Negative Medications & Allergies Home Medications: Home Medication List Epinephrine [Epipen] 0.3 mg IM UD 01/31/16 [History Confirmed 09/11/20] Fluoxetine HCl [Prozac] 20 mg PO DAILY 01/31/16 [History Confirmed 09/11/20] Benazepril HCl [Lotensin] 40 mg PO DAILY 12/20/16 [History Confirmed 09/11/20] Cholecalciferol (Vitamin D3) [Vitamin D3] 2,000 unit PO DAILY 12/20/16 [History Confirmed 09/11/20] Albuterol 8 gm Mdi Hfa [Ventolin Hfa MDI] 2 puff IH .PRN 07/03/17 [History Confirmed 09/11/20] Loratadine 10 mg [Claritin 10 mg] 10 mg PO DAILY 07/03/17 [History Confirmed 09/11/20] Gabapentin 100 mg PO HS 11/11/17 [History Confirmed 09/11/20] Ferrous Sulfate [Albafort] 325 mg PO BID #60 tablet 05/27/20 [Rx Confirmed 09/11/20] Budesonide/Formoterol Fumarate [Symbicort 160-4.5 Mcg Inhaler] 2 puff IH BID 07/05/20 [History Confirmed 09/11/20] Morphine Sulfate Ir 15 mg [Msir 15 mg] 15 mg PO QID 07/05/20 [History Confirmed 09/11/20] Calcium Carbonate/Vitamin D3 [Calcium 500 mg Chewable Tablet] 2 each PO BID 07/20/20 [History Confirmed 09/11/20] Cyanocobalamin 500 Mcg [Vitamin B-12 500 MCG] 500 mcg PO DAILY 07/20/20 [History Confirmed 09/11/20] Famotidine 20 mg [Pepcid 20 MG] 20 mg PO BID 07/20/20 [History Confirmed 09/11/20] Glucosam/Paulo-Msm1/C/Fransisco/Bosw [Osteo Bi-Flex Caplet] 2 each PO DAILY 07/20/20 [History Confirmed 09/11/20] Golimumab [Simponi Aria] 50 mg IV UD 07/20/20 [History Confirmed 09/11/20] Thiamine HCl [Vitamin B-1] 125 mg PO WEEKLY 07/20/20 [History Confirmed 09/11/20] Capecitabine 4 tab PO BID 09/11/20 [History Confirmed 09/11/20] Meclizine HCl 25 mg [Antivert 25 mg] 1 tab PO DAILY PRN 09/11/20 [History Confirmed 09/11/20] Metoprolol Succinate 1 tab PO DAILY 09/11/20 [History Confirmed 09/11/20] Ondansetron HCl 1 tab PO Q6H PRN 09/11/20 [History Confirmed 09/11/20] Potassium Chloride 10 Meq Tab* [Klor Con 10 MEQ] 1 tab PO DAILY 09/11/20 [History Confirmed 09/11/20] Prochlorperazine Maleate 10 mg [Compazine 10 mg] 1 tab PO Q6H PRN 09/11/20 [History Confirmed 09/11/20] Allergies/Adverse Reactions: Allergies Allergy/AdvReac Type Severity Reaction Status Date / Time codeine [Codeine] AdvReac Intermediate Nausea and Verified 09/11/20 01:11 Vomiting, light headed bandaids AdvReac Mild redness/swe Uncoded 09/11/20 01:11 lling - Past Medical History Past Medical History: Yes Neurological History: No Pertinent History ENT History: No Pertinent History Cardiac History: High Cholesterol, Hypertension Respiratory History: COPD Endocrine Medical History: No Pertinent History Musculoskelatal History: Rheumatoid Arthritis GI Medical History: Colorectal Cancer, Diverticulosis, GERD, Polyps History: No Pertinent History Pyscho-Social History: Anxiety Reproductive Disorders: Breast Cancer Comment: BILATERAL Knee replacement 2008, BARIATRIC SURGERY 2009; BREAST CA W/ LUMPECTOMY 2003, colonoscopy, rheumatoid arthritis - Female History Are you now?: No - Past Surgical History Past Surgical History: Yes Neuro Surgical History: No Pertinent History Cardiac History: No Pertinent History Respiratory Surgery: No Pertinent History GI Surgical History: Hernia Repair, Other Genitourinary Surgical Hx: No Pertinent History Musculskeletal Surgical Hx: Joint Replacement, Orthopedic Surgery Female Surgical History: Tubal Ligation, Mastectomy Other Surgical History: T&A,Bjorn knee replacement, umbil. hernior.,bariatric surgery, breast cancer with partial mastectomy left, lumpectomy right breast, tubal, colon resection - Social History Smoking Status: Former smoker How long have you smoked: quit 2007 Exposure to second hand smoke: No Alcohol: Rarely Drug Use: none Significant Family History: heart disease, cancer - Physical Exam Vital Signs: Vital Signs - 24 hr Temp Pulse Resp BP Pulse Ox 09/11/20 07:28 98.4 F 72 18 145/67 95 09/11/20 04:38 97.1 F 93 H 16 129/68 96 09/11/20 04:19 96 09/11/20 04:11 91 H 107/57 92 L 09/11/20 03:00 94 H 20 118/82 98 09/11/20 02:18 78 126/58 95 09/11/20 01:09 99.5 F 79 18 101/78 96 General Appearance: no apparent distress, alert Neurologic Exam: oriented x 3, cooperative Eye Exam: eyes nml inspection Ears, Nose, Throat Exam: moist mucous membranes Neck Exam: normal inspection, non-tender, No lymphadenopathy Respiratory Exam: normal breath sounds, lungs clear, No crackles/rales, No rhonchi, No wheezing Cardiovascular Exam: regular rate/rhythm, normal heart sounds, No murmur Gastrointestinal/Abdomen Exam: soft, tenderness (RUQ > RLQ), No normal bowel sounds (hypoactive), No distention, No mass, No guarding, No rebound Extremity Exam: normal inspection, No pedal edema, No swelling Skin Exam: normal color, warm, dry, No rash Results - Labs Lab/Micro Results: Lab Results-Last 24 Hours 09/11/20 09/11/20 09/11/20 Range/Units 01:21 01:30 01:30 WBC (4.0-10.5) K/mm3 RBC (4.1-5.4) M/mm3 Hgb (12.0-16.0) gm/dl Hct (35-47) % MCV (78-100) fl MCH (26-32) pg MCHC (32-36) g/dl RDW (11.5-14.0) % Plt Count (150-450) K/mm3 MPV (7.5-11.0) fl Gran % (36.0-66.0) % Eos # (Auto) (0-0.5) Absolute Lymphs (auto) (1.0-4.6) Absolute Monos (auto) (0.0-1.3) Lymphocytes % (24.0-44.0) % Monocytes % (0.0-12.0) % Eosinophils % (0.00-5.0) % Basophils % (0.0-0.4) % Absolute Granulocytes (1.4-6.9) Basophils # (0-0.4) Sodium (137-145) mmol/L Potassium (3.5-5.1) mmol/L Chloride (98-107) mmol/L Carbon Dioxide (22-30) mmol/L Anion Gap (5-15) MEQ/L BUN (7-17) mg/dL Creatinine (0.52-1.04) mg/dL Estimated GFR ML/MIN Glucose (74-106) mg/dL Lactic Acid (0.4-2.0) Calcium (8.4-10.2) mg/dL Magnesium 2.0 (1.6-2.3) mg/dL Total Bilirubin (0.2-1.3) mg/dL AST (14-36) U/L ALT (0-35) U/L Alkaline Phosphatase (38-126) U/L Troponin I 0.019 (0.000-0.034) ng/mL Serum Total Protein (6.3-8.2) g/dL Albumin (3.5-5.0) g/dL Amylase (30-110) U/L Lipase (23-300) U/L Urine Color YELLOW (YELLOW) Urine Appearance SLIGHTLY CLOUDY (CLEAR) Urine pH 6.0 (5-6) Ur Specific [place] 1.015 (1.005-1.025) Urine Protein 30 (Negative) Urine Ketones SMALL (NEGATIVE) Urine Blood SMALL (0-5) Mike/ul Urine Nitrite NEGATIVE (NEGATIVE) Urine Bilirubin NEGATIVE (NEGATIVE) Urine Urobilinogen 2 (0-1) mg/dL Ur Leukocyte Esterase NEGATIVE (NEGATIVE) Urine WBC (Auto) 3-5 (0-5) /HPF Urine RBC (Auto) 6-10 (0-2) /HPF U Epithel Cells (Auto) NONE (FEW) /HPF Urine Bacteria (Auto) RARE (NEGATIVE) /HPF Urine Mucus (Auto) MANY (NEGATIVE) /HPF Urine Culture Reflexed YES (NO) Urine Glucose NEGATIVE (NEGATIVE) mg/dL 09/11/20 09/11/20 09/11/20 Range/Units 01:35 01:39 01:39 WBC 15.3 H (4.0-10.5) K/mm3 RBC 5.47 H (4.1-5.4) M/mm3 Hgb 14.1 (12.0-16.0) gm/dl Hct 45.0 (35-47) % MCV 82.3 (78-100) fl MCH 25.8 L (26-32) pg MCHC 31.3 L (32-36) g/dl RDW 18.8 H (11.5-14.0) % Plt Count 211 (150-450) K/mm3 MPV 9.6 (7.5-11.0) fl Gran % 76.1 H (36.0-66.0) % Eos # (Auto) 0.01 (0-0.5) Absolute Lymphs (auto) 2.34 (1.0-4.6) Absolute Monos (auto) 1.29 (0.0-1.3) Lymphocytes % 15.3 L (24.0-44.0) % Monocytes % 8.4 (0.0-12.0) % Eosinophils % 0.1 (0.00-5.0) % Basophils % 0.1 (0.0-0.4) % Absolute Granulocytes 11.61 H (1.4-6.9) Basophils # 0.02 (0-0.4) Sodium 134 L (137-145) mmol/L Potassium 2.8 L* (3.5-5.1) mmol/L Chloride 97 L (98-107) mmol/L Carbon Dioxide 25 (22-30) mmol/L Anion Gap 14.9 (5-15) MEQ/L BUN 9 (7-17) mg/dL Creatinine 0.45 L (0.52-1.04) mg/dL Estimated GFR > 60.0 ML/MIN Glucose 149 H (74-106) mg/dL Lactic Acid 1.2 (0.4-2.0) Calcium 9.4 (8.4-10.2) mg/dL Magnesium (1.6-2.3) mg/dL Total Bilirubin 0.70 (0.2-1.3) mg/dL AST 68 H (14-36) U/L ALT 54 H (0-35) U/L Alkaline Phosphatase 105 (38-126) U/L Troponin I (0.000-0.034) ng/mL Serum Total Protein 7.5 (6.3-8.2) g/dL Albumin 4.1 (3.5-5.0) g/dL Amylase 30 (30-110) U/L Lipase 21 L (23-300) U/L Urine Color (YELLOW) Urine Appearance (CLEAR) Urine pH (5-6) Ur Specific [place] (1.005-1.025) Urine Protein (Negative) Urine Ketones (NEGATIVE) Urine Blood (0-5) Mike/ul Urine Nitrite (NEGATIVE) Urine Bilirubin (NEGATIVE) Urine Urobilinogen (0-1) mg/dL Ur Leukocyte Esterase (NEGATIVE) Urine WBC (Auto) (0-5) /HPF Urine RBC (Auto) (0-2) /HPF U Epithel Cells (Auto) (FEW) /HPF Urine Bacteria (Auto) (NEGATIVE) /HPF Urine Mucus (Auto) (NEGATIVE) /HPF Urine Culture Reflexed (NO) Urine Glucose (NEGATIVE) mg/dL 09/11/20 09/11/20 09/11/20 Range/Units 03:18 06:15 06:15 WBC (4.0-10.5) K/mm3 RBC (4.1-5.4) M/mm3 Hgb (12.0-16.0) gm/dl Hct (35-47) % MCV (78-100) fl MCH (26-32) pg MCHC (32-36) g/dl RDW (11.5-14.0) % Plt Count (150-450) K/mm3 MPV (7.5-11.0) fl Gran % (36.0-66.0) % Eos # (Auto) (0-0.5) Absolute Lymphs (auto) (1.0-4.6) Absolute Monos (auto) (0.0-1.3) Lymphocytes % (24.0-44.0) % Monocytes % (0.0-12.0) % Eosinophils % (0.00-5.0) % Basophils % (0.0-0.4) % Absolute Granulocytes (1.4-6.9) Basophils # (0-0.4) Sodium (137-145) mmol/L Potassium 3.0 L (3.5-5.1) mmol/L Chloride (98-107) mmol/L Carbon Dioxide (22-30) mmol/L Anion Gap (5-15) MEQ/L BUN (7-17) mg/dL Creatinine (0.52-1.04) mg/dL Estimated GFR ML/MIN Glucose (74-106) mg/dL Lactic Acid (0.4-2.0) Calcium (8.4-10.2) mg/dL Magnesium 2.1 (1.6-2.3) mg/dL Total Bilirubin (0.2-1.3) mg/dL AST (14-36) U/L ALT (0-35) U/L Alkaline Phosphatase (38-126) U/L Troponin I 0.023 (0.000-0.034) ng/mL Serum Total Protein (6.3-8.2) g/dL Albumin (3.5-5.0) g/dL Amylase (30-110) U/L Lipase (23-300) U/L Urine Color (YELLOW) Urine Appearance (CLEAR) Urine pH (5-6) Ur Specific [place] (1.005-1.025) Urine Protein (Negative) Urine Ketones (NEGATIVE) Urine Blood (0-5) Mike/ul Urine Nitrite (NEGATIVE) Urine Bilirubin (NEGATIVE) Urine Urobilinogen (0-1) mg/dL Ur Leukocyte Esterase (NEGATIVE) Urine WBC (Auto) (0-5) /HPF Urine RBC (Auto) (0-2) /HPF U Epithel Cells (Auto) (FEW) /HPF Urine Bacteria (Auto) (NEGATIVE) /HPF Urine Mucus (Auto) (NEGATIVE) /HPF Urine Culture Reflexed (NO) Urine Glucose (NEGATIVE) mg/dL 09/11/20 Range/Units 06:25 WBC (4.0-10.5) K/mm3 RBC (4.1-5.4) M/mm3 Hgb (12.0-16.0) gm/dl Hct (35-47) % MCV (78-100) fl MCH (26-32) pg MCHC (32-36) g/dl RDW (11.5-14.0) % Plt Count (150-450) K/mm3 MPV (7.5-11.0) fl Gran % (36.0-66.0) % Eos # (Auto) (0-0.5) Absolute Lymphs (auto) (1.0-4.6) Absolute Monos (auto) (0.0-1.3) Lymphocytes % (24.0-44.0) % Monocytes % (0.0-12.0) % Eosinophils % (0.00-5.0) % Basophils % (0.0-0.4) % Absolute Granulocytes (1.4-6.9) Basophils # (0-0.4) Sodium (137-145) mmol/L Potassium (3.5-5.1) mmol/L Chloride (98-107) mmol/L Carbon Dioxide (22-30) mmol/L Anion Gap (5-15) MEQ/L BUN (7-17) mg/dL Creatinine (0.52-1.04) mg/dL Estimated GFR ML/MIN Glucose (74-106) mg/dL Lactic Acid (0.4-2.0) Calcium (8.4-10.2) mg/dL Magnesium (1.6-2.3) mg/dL Total Bilirubin (0.2-1.3) mg/dL AST (14-36) U/L ALT (0-35) U/L Alkaline Phosphatase (38-126) U/L Troponin I 0.054 H* (0.000-0.034) ng/mL Serum Total Protein (6.3-8.2) g/dL Albumin (3.5-5.0) g/dL Amylase (30-110) U/L Lipase (23-300) U/L Urine Color (YELLOW) Urine Appearance (CLEAR) Urine pH (5-6) Ur Specific [place] (1.005-1.025) Urine Protein (Negative) Urine Ketones (NEGATIVE) Urine Blood (0-5) Mike/ul Urine Nitrite (NEGATIVE) Urine Bilirubin (NEGATIVE) Urine Urobilinogen (0-1) mg/dL Ur Leukocyte Esterase (NEGATIVE) Urine WBC (Auto) (0-5) /HPF Urine RBC (Auto) (0-2) /HPF U Epithel Cells (Auto) (FEW) /HPF Urine Bacteria (Auto) (NEGATIVE) /HPF Urine Mucus (Auto) (NEGATIVE) /HPF Urine Culture Reflexed (NO) Urine Glucose (NEGATIVE) mg/dL - Radiology Impressions Radiology Exams & Impressions: Radiology Procedures Category Date Time Status ABDOMEN AND PELVIS W/0 CONTRAS [CT] Stat Exams 09/11/20 01:21 Completed Assessment/Plan (1) Intra-abdominal abscess post-procedure Current Visit: Yes Status: Acute Assessment & Plan: Pt is on zosyn day #1. Surgery has been consulted, thank you. Dr. Eugenio Kellogg would like the patient transferred to [place]; will ikely repeat a scan with po contrast and place an IR drain. I have a call out to the hospitalist for admission at [facility]. Code(s): T81.43XA - INFCT FOL A PROCEDURE, ORGAN AND SPACE SURGICAL SITE, INIT (2) Elevated troponin I level Current Visit: Yes Status: Acute Assessment & Plan: Elevations are mild, could be related to acute illness. Pt is asx. EKG is pending. Code(s): R77.8 - OTHER SPECIFIED ABNORMALITIES OF PLASMA PROTEINS (3) Hypokalemia Current Visit: Yes Status: Chronic Assessment & Plan: Pt very reluctant to have IV potassium; was ok'd to take her po K+ this a.m. by surgery. K+ 3.0 today. Code(s): E87.6 - HYPOKALEMIA (4) History of hemicolectomy Current Visit: No Status: Chronic Assessment & Plan: With adenocarcinoma. She is on po and IV chemotherapy, but missed yesterday's dose due to vomiting. Code(s): Z90.49 - ACQUIRED ABSENCE OF OTHER SPECIFIED PARTS OF DIGESTIVE TRACT (5) Rheumatoid arthritis Current Visit: Yes Status: Acute Code(s): M06.9 - RHEUMATOID ARTHRITIS, UNSPECIFIED
[2020-09-11] MEDS ORDERED: Prozac 20 MG PO SCH (12:00)
[2020-09-11] MEDS ORDERED: Lotensin 10 MG PO SCH (12:00)
[2020-09-11] MEDS ORDERED: CLARITIN 10 MG PO SCH (12:00)
[2020-09-11 12:02] VITALS: BP 130/64; PULSE 88; O2SAT 93
[2020-09-11] MEDS ORDERED: Toprol Xl 100 MG PO SCH (12:15)
[2020-09-12] MEDS ORDERED: PROTONIX 40 MG IV IV SCH (01:30)
[2020-09-12] MEDS ORDERED: NON-FORMULARY ITEM (Benazepril Hcl [Lotensin] 40 MG) PO SCH (10:00)
== END 2020-09-11 13:25 | disposition home or self-care (01) ==
LOC: ED 01:09 → MED SURG 04:12 → INTOOBSV 04:12
PROVIDERS: ADMIT Family Medicine; ATTEND Family Medicine
DX: T81.43XA Infection following a procedure, organ and space surgical site, initial encounter (principal); M06.9 Rheumatoid arthritis, unspecified; E87.6 Hypokalemia; J44.9 Chronic obstructive pulmonary disease, unspecified; Z85.038 Personal history of other malignant neoplasm of large intestine; Z90.49 Acquired absence of other specified parts of digestive tract; R77.8 Other specified abnormalities of plasma proteins; Z79.899 Other long term (current) drug therapy; I10 Essential (primary) hypertension; E78.00 Pure hypercholesterolemia, unspecified; R11.2 Nausea with vomiting, unspecified; M54.9 Dorsalgia, unspecified; Z85.3 Personal history of malignant neoplasm of breast
CPT/HCPCS: 36000; 36415; 74176; 80053; 81001; 82150; 83605; 83690; 83735; 84132; 84484; 85025; 87086; 93005; 93268; 96360; 96365; 96367; 96374; 96375; 99284; G0378; J1170; J2270; J2405; J3480; A9270-GY

== ENCOUNTER 2020-12-01 07:58 | Day surgery (SDC) | payer MEDICARE ==
--- NOTE | 2020-11-23 15:09 | HP ---
DATE OF SURGERY: 12/01/2020 HISTORY OF PRESENT ILLNESS: The patient is a 70 year-old presents with malfunctioning port. There is a reason history of colon cancer and is undergoing chemotherapy. She is here for removal and insertion. PAST MEDICAL HISTORY: Colon cancer. Chronic obstructive pulmonary disease. Rheumatoid arthritis. Breast cancer. PAST SURGICAL HISTORY: Bariatric surgery. Ventral hernia repair. Right hemicolectomy. Bilateral knee replacement. Laparoscopic cholecystectomy. Tonsillectomy. Left breast lumpectomy. ALLERGIES: TYLENOL WITH CODEINE. BANDAIDS. MEDICATIONS: Pepcid. Fluoxetine. Benazepril. Gabapentin. Symbicort. Loratadine. Metoprolol. Meclizine. Multivitamin. Calcium. Ventolin inhaler. Lasix. Potassium. FAMILY HISTORY: Heart disease, skin cancer. SOCIAL HISTORY: None. REVIEW OF SYSTEMS: CONSTITUTIONAL: Denies fever or chills. CHEST: Denies shortness of breath. CVS: Denies chest pain. ABDOMEN: Denies abdominal pain. INTEGUMENTARY: Negative. PHYSICAL EXAMINATION: GENERAL: No acute distress. CHEST: Nonlabored. No shortness of breath. CVS: Regular rate and rhythm. ABDOMEN: Soft, nontender to palpation. EXTREMITIES: No edema. NEUROLOGIC: Alert. PSYCHIATRIC: Appropriate. IMPRESSION: Malfunctioning port. PLAN: Port removal and port insertion with Dr. Yuri Kellogg. As dictated by Rachael Cook NP.
[~2020-12-01 07:58] MED LIST changes: +CEFAZOLIN 2 GM-D5W BAG** 2 GM/50 ML ML IV ONE
[2020-12-01] MEDS ORDERED: CEFAZOLIN 2 GM-D5W BAG** 2 GM/50 ML ML IV SCH (08:00)
[2020-12-01] MEDS ORDERED: Lactated Ringers 1,000 ML IV SCH (08:00)
[2020-12-01] MEDS ORDERED: Lactated Ringers 1,000 ML IV ONE (08:04)
[2020-12-01] MEDS ORDERED: DIPRIVAN 200 MG/20 ML IV ONE ×2 (09:36→09:48)
[2020-12-01] MEDS ORDERED: SUBLIMAZE 100 MCG/2 ML ONE (09:36)
[2020-12-01] MEDS ORDERED: Versed 2 MG/2 ML Injection ONE (09:36)
--- NOTE | 2020-12-01 10:23 | XRAY ---
Indication: Port placement. Intraoperative fluoroscopy provided for 5 seconds. Single digital spot image submitted for interpretation demonstrate partially visualized left Port-A-Cath with catheter tip projecting over the SVC. Correlate with intraoperative findings/report.
[2020-12-01 11:07] VITALS: O2SAT 95
[2020-12-01 11:21] VITALS: BP 137/74; PULSE 68
--- NOTE | 2020-12-01 13:52 | OP ---
SURGERY DATE/TIME: 12/01/2020 8730 PREOPERATIVE DIAGNOSIS: Malfunctioning Port-A-Cath. POSTOPERATIVE DIAGNOSIS: Malfunctioning Port-A-Cath. PROCEDURES: 1) Removal of Port-A-Cath. 2) Placement of a new Port-A-Cath in the same location. SURGEON: Yuri Kellogg M.D. ANESTHESIA: General. COMPLICATIONS: None. CONDITION: Stable. INDICATION: A patient requiring access. DESCRIPTION OF PROCEDURE: Routine prep and drape. Time out performed. The old port was pulled out and a new catheter placed. It was placed at the same site although new venipuncture. Aspirated nicely. Flushed nicely. Secured at 23 cm. The tip was in the right atrium in good position with no pneumothorax and functional. Closed with 3-0 Prolene, 3-0 Vicryl, 4-0 Vicryl and Steri-Strips. The patient tolerated the procedure satisfactorily.
== END 2020-12-01 11:20 | disposition home or self-care (01) ==
LOC: SDC 07:58
PROVIDERS: ATTEND Surgery
DX: T82.514A Breakdown (mechanical) of infusion catheter, initial encounter (principal); Z85.038 Personal history of other malignant neoplasm of large intestine; Z85.3 Personal history of malignant neoplasm of breast; J44.9 Chronic obstructive pulmonary disease, unspecified; Z79.899 Other long term (current) drug therapy
CPT/HCPCS: 36585; 77001; C1788; 99100; J0690; J1642; J2250; J2704; J3010

== ENCOUNTER 2021-01-13 06:05 | Day surgery (SDC) | payer MEDICARE ==
[2021-01-13] MEDS: Lactated Ringers 1,000 ML IV SCH (06:14)
[2021-01-13] MEDS ORDERED: DIPRIVAN 200 MG/20 ML IV ONE ×2 (07:15→07:42)
[2021-01-13 08:36] VITALS: BP 146/71; PULSE 61; O2SAT 98
[2021-01-13] MEDS: Sodium Chloride 0.9% 10 ML FLUSH Syringe PORT FLUSH PRN (08:38)
--- NOTE | 2021-01-13 09:28 | OP ---
SURGERY DATE/TIME: 01/13/2021 0720 PREOPERATIVE DIAGNOSIS: Rectal bleeding and history of colon cancer. POSTOPERATIVE DIAGNOSIS: Polyp in the transverse colon that appeared to be inflammatory in nature plus a small, flat polyp noted in the distal transverse colon and moderate to severe sigmoid diverticulosis. PROCEDURE: Colonoscopy with cold forceps biopsy. SURGEON: Dr. Lechuga. ANESTHESIA: MAC. Medications given by anesthesia department. HISTORY: The patient is a 71 year-old white female who had colon cancer resected approximately eight months ago. Since that time the patient has developed rectal bleeding over the past couple of weeks. She reports it is bright red in nature. The patient was felt the need to have endoscopic evaluation. She was appraised of the risks of the procedure including the risk of perforation, phlebitis, untoward reaction to medication, bleeding and missed lesions. The patient verbalized her understanding and desired to have the procedure performed. DESCRIPTION OF PROCEDURE: The patient was given the medications by the anesthesia department. She had continuous pulse oximetry, ECG monitoring, intermittent blood pressure monitoring and tidal CO2 monitoring during the examination. She was placed in the left lateral decubitus position. A digital rectal examination revealed normal anal sphincter tone and no masses. The flexible Olympus pediatric colonoscope was used to intubate the rectum. A view of the colon was developed sequentially to the anastomotic site in the right side of the colon. There did appear to be some bleeding from a small area in the colon. There was also noted a polyp approximately 1 cm in size which was destroyed using passage of the cold forceps biopsy. There was also a sessile lesion noted distally and was biopsied using cold biopsy technique. Upon insertion and withdrawal, including a retroflex view in the rectum, no other mucosal lesions being encountered. The scope was removed from the patient who tolerated the procedure well and was sent back to OP recovery in good condition. The prep was noted to be fair to good.
== END 2021-01-13 08:50 | disposition home or self-care (01) ==
LOC: SDC 06:05
PROVIDERS: ATTEND Family Medicine
DX: K63.5 Polyp of colon (principal); K57.30 Diverticulosis of large intestine without perforation or abscess without bleeding; Z85.038 Personal history of other malignant neoplasm of large intestine; I10 Essential (primary) hypertension; Z79.899 Other long term (current) drug therapy
CPT/HCPCS: 88305; 99100; J1642; J2704

== ENCOUNTER 2021-02-01 10:00 | Day surgery (SDC) | payer MEDICARE ==
[2012-05-22 11:43] VITALS: BP 117/51
[2021-02-01] MEDS ORDERED: Depo-Medrol 40 MG/ML IM ONE (10:01)
[2021-02-01] MEDS ORDERED: Sodium Chloride 0.9(Preservative Free) 10 ML IJ ONE (10:01)
[2021-02-01] MEDS ORDERED: DIPRIVAN 200 MG/20 ML IV ONE (11:09)
[2021-02-01] MEDS ORDERED: TORAdol 30 mg Injection ONE (11:13)
[2021-02-01] MEDS ORDERED: MORPHINE SULFATE 2 MG INJ ONE (11:27)
--- NOTE | 2021-02-01 13:16 | XRAY ---
36 seconds fluoroscopy time in surgery for right L4-S1 transforaminal CHIDI.
--- NOTE | 2021-02-01 13:16 | XRAY ---
Indication: Right L4-S1 transforaminal CHIDI. Intraoperative fluoroscopy provided for 36 seconds. 2 digital spot images submitted for interpretation demonstrates posterior needle tips projecting over the right L4 and L5 nerve roots. Small amount of contrast injected for needle tip placement. Correlate with intraoperative findings/report.
[2021-02-01] MEDS ORDERED: Lactated Ringers 1,000 ML IV ONE (15:31)
== END 2021-02-01 11:40 | disposition home or self-care (01) ==
LOC: SDC-PAIN 10:00
PROVIDERS: ATTEND Psychiatry & Neurology Pain Medicine
DX: M54.16 Radiculopathy, lumbar region (principal); D64.9 Anemia, unspecified; F41.9 Anxiety disorder, unspecified; F32.9 Major depressive disorder, single episode, unspecified; M06.9 Rheumatoid arthritis, unspecified; J44.9 Chronic obstructive pulmonary disease, unspecified; I10 Essential (primary) hypertension; Z79.899 Other long term (current) drug therapy
CPT/HCPCS: 64483; 64484; 72020; 77003; J1030; J1642; J1885; J2270; J2704; Q9966

== ENCOUNTER 2021-03-08 11:22 | Day surgery (SDC) | payer MEDICARE ==
[2012-05-22 11:43] VITALS: BP 117/51
[2021-03-08] MEDS ORDERED: Depo-Medrol 40 MG/ML IM ONE (11:23)
[2021-03-08] MEDS ORDERED: Decadron 4 MG INJ IV ONE (11:23)
[2021-03-08] MEDS ORDERED: Xylocaine 1% Vial 30 ML PF IJ ONE (11:23)
[2021-03-08] MEDS ORDERED: Sodium Chloride 0.9(Preservative Free) 10 ML IJ ONE (11:23)
[2021-03-08] MEDS ORDERED: DIPRIVAN 200 MG/20 ML IV ONE (12:36)
[2021-03-08] MEDS ORDERED: MORPHINE SULFATE 2 MG INJ ONE (12:57)
[2021-03-08] MEDS ORDERED: Lactated Ringers 1,000 ML IV ONE (15:57)
--- NOTE | 2021-03-09 11:53 | XRAY ---
17 seconds fluoroscopy time in surgery for lumbar caudal CHIDI.
--- NOTE | 2021-03-09 12:03 | XRAY ---
13 seconds fluoroscopy time in surgery for injection of the right piriformis muscle.
--- NOTE | 2021-03-12 00:12 | XRAY ---
Indication: Caudal CHIDI. Intraoperative fluoroscopy was provided for 17 seconds. A single digital spot image submitted for interpretation demonstrates the posterior spinal needle tip projected over the mid sacrum in the midline. Some contrast has been injected for needle tip placement. Incidentally, some surgical clips are seen within the left hemipelvis. Correlate with intraoperative findings/report.
--- NOTE | 2021-03-12 00:14 | XRAY ---
Indication: Right piriformis injection. Intraoperative fluoroscopy was provided for 13 seconds. A single digital spot image submitted for interpretation demonstrates a posterior needle tip projected over the expected right piriformis muscle. A small amount of contrast has been injected for needle tip placement. Correlate with intraoperative findings/report.
== END 2021-03-08 13:09 | disposition home or self-care (01) ==
LOC: SDC-PAIN 11:22
PROVIDERS: ATTEND Psychiatry & Neurology Pain Medicine
DX: M54.16 Radiculopathy, lumbar region (principal); M79.18 Myalgia, other site; Z79.899 Other long term (current) drug therapy
CPT/HCPCS: 20552; 62323; 72020; 77002; 77003; 99100; J1030; J1100; J1642; J2001; J2270; J2704; Q9966

== ENCOUNTER 2021-03-14 04:47 | Observation (INO) | payer MEDICARE ==
--- NOTE | 2021-03-14 05:21 | ERPHSYRPT ---
- History of Present Illness Historian: patient, EMS Patient Subjective Stated Complaint: pt states she has been having abd pain since 1600 and has been vomiting Triage Nursing Assessment: pt alert and oriented, answers questions approp. pt arrive per ambulance. ambulates into bathroom with minimal assist steady gait noted. respirations nonlabored. abd soft, pt reports tenderness to abd with lig ht palpation. bowel sounds hypo. Timing/Duration: other (5-6 hours) Activities at Onset: rest Quality: sharpness Abdominal Pain Onset Location: generalized abdomen Pain Radiation: no radiation Severity of Pain-Max: severe Severity of Pain-Current: moderate Modifying Factors: Improves With: other (Pain better w 100umg IV Fentanyl in ambulance) Associated Symptoms: nausea, vomiting, weakness, No back, No chest pain, No diaphoresis, No diarrhea, No fever/chills, No fatigue, No headache, No heartburn, No loss of appetite, No neck pain, No rash, No shortness of breath, No syncope Previous symptoms: same symptoms as today Hx Tetanus, Diphtheria Vaccination/Date Given: Yes Hx Influenza Vaccination/Date Given: Yes Hx Pneumococcal Vaccination/Date Given: Yes Immunizations Up to Date: Yes <THOMAS CORRIGAN - Last Filed: 03/14/21 06:05> <ECHO SMITH - Last Filed: 03/14/21 09:36> - History of Present Illness Physician History: 71 yo wf w N/V/generalized abdominal pain x 5-6 hours. She denies hematemesis/diarrhea/melena/hematochezia/fever/dysuria/hematuria/chest pain. Pt had a bowel resection due to colon ca 07/[address] Kellogg and has completed chemotherapy. Pt also complains of chronic RLE pain due to sciatica. (THOMAS CORRIGAN) Allergies/Adverse Reactions: codeine [Codeine] Adverse Reaction (Intermediate, Verified 03/14/21 05:15) Nausea and Vomiting, light headed from tylenol with codeine bandaids Adverse Reaction (Mild, Uncoded 03/14/21 05:15) redness/swelling Home Medications: Epinephrine [Epipen] 0.3 mg IM UD 01/31/16 [History] Fluoxetine HCl [Prozac] 20 mg PO DAILY 01/31/16 [History] Benazepril HCl [Lotensin] 40 mg PO DAILY 12/20/16 [History] Cholecalciferol (Vitamin D3) [Vitamin D3] 2,000 unit PO DAILY 12/20/16 [History] Loratadine 10 mg [Claritin 10 mg] 10 mg PO DAILY 07/03/17 [History] Gabapentin 100 mg PO HS 11/11/17 [History] Budesonide/Formoterol Fumarate [Symbicort 160-4.5 Mcg Inhaler] 2 puff IH BID 07/05/20 [History] Calcium Carbonate/Vitamin D3 [Calcium 500 mg Chewable Tablet] 2 each PO BID 07/20/20 [History] Cyanocobalamin 500 Mcg [Vitamin B-12 500 MCG] 500 mcg PO DAILY 07/20/20 [History] Famotidine 20 mg [Pepcid 20 MG] 20 mg PO BID 07/20/20 [History] Golimumab [Simponi Aria] 50 mg IV UD 07/20/20 [History] Thiamine HCl [Vitamin B-1] 125 mg PO WEEKLY 07/20/20 [History] Meclizine HCl 25 mg [Antivert 25 mg] 1 tab PO DAILY PRN 09/11/20 [History] Potassium Chloride 10 Meq Tab* [Klor Con 10 MEQ] 8 meq PO BID 09/11/20 [History] Metoprolol Succinate 100 mg [Toprol Xl 100 MG] 100 mg PO DAILY 11/23/20 [History] Albuterol Sulfate [Ventolin Hfa] 1 inh IH Q4-6HPRN PRN 12/01/20 [History] Furosemide 40 mg [Lasix 40 MG] 40 mg PO DAILY 12/01/20 [History] Oxycodone HCl/Acetaminophen [Oxycodone-Acetaminophn 7.5-325] 1 each PO QID 01/13/21 [History] Travel Risk - International Travel Have you traveled outside of the country in past 3 weeks: No (n) If Yes, where;: N - Coronavirus Screening Are you exhibiting any of the following symptoms?: No Close contact with a COVID-19 positive Pt in past 14-21 Days: No - Vaccine Status Have you recieved a Covid-19 vaccination: Yes 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 - Vaccination Dates Date of 2cond Vaccination (if applicable): 12/12/20 <THOMAS CORRIGAN - Last Filed: 03/14/21 06:05> - Review of Systems Constitutional: No Symptoms Eyes: No Symptoms Ears, Nose, & Throat: No Symptoms Respiratory: No Symptoms Cardiac: No Symptoms Abdominal/Gastrointestinal: No Symptoms, Abdominal Pain, Nausea, Vomiting Genitourinary Symptoms: No Symptoms Musculoskeletal: No Symptoms Skin: No Symptoms Neurological: No Symptoms Psychological: No Symptoms Endocrine: No Symptoms Hematologic/Lymphatic: No Symptoms Immunological/Allergic: No Symptoms <THOMAS CORRIGAN - Last Filed: 03/14/21 06:05> - Past Medical History Pertinent Past Medical History: Yes Neurological History: No Pertinent History ENT History: No Pertinent History Cardiac History: High Cholesterol, Hypertension Respiratory History: COPD Endocrine Medical History: No Pertinent History Musculoskeletal History: Rheumatoid Arthritis GI Medical History: Colorectal Cancer, Diverticulosis, GERD, Polyps History: No Pertinent History Psycho-Social History: Anxiety Female Reproductive Disorders: Breast Cancer Other Medical History: BILATERAL Knee replacement 2008, BARIATRIC SURGERY 2009; BREAST CA W/ LUMPECTOMY 2003, colonoscopy, rheumatoid arthritis - Past Surgical History Past Surgical History: Yes Neuro Surgical History: No Pertinent History Cardiac: No Pertinent History Respiratory: No Pertinent History Gastrointestinal: Colon Resection, Hernia Repair, Other Genitourinary: No Pertinent History Musculoskeletal: Joint Replacement, Orthopedic Surgery Female Surgical History: Tubal Ligation, Mastectomy Other Surgical History: T&A,Bjorn knee replacement, umbil. hernior.,bariatric surgery, breast cancer with partial mastectomy left, lumpectomy right breast, tubal, colon resection - Social History Smoking Status: Former smoker How long have you smoked: quit 2007 Exposure to second hand smoke: Yes Drug Use: none Patient Lives Alone: Yes Significant Family History: heart disease, cancer <THOMAS CORRIGAN - Last Filed: 03/14/21 06:05> - Physical Exam General Appearance: no apparent distress Eye Exam: PERRL/EOMI, eyes nml inspection Ears, Nose, Throat Exam: normal ENT inspection, TMs normal, pharynx normal, moist mucous membranes Neck Exam: normal inspection, non-tender, supple, full range of motion, No meningismus, No mass, No Brudzinski, No Kernig's Respiratory Exam: normal breath sounds, lungs clear, airway intact, No respiratory distress Cardiovascular Exam: regular rate/rhythm, normal heart sounds Gastrointestinal/Abdomen Exam: soft, tenderness (Mild diffuse TTP) Back Exam: normal inspection, normal range of motion Extremity Exam: normal inspection, normal range of motion Neurologic Exam: alert, oriented x 3, cooperative, packaging clerk II-XII nml as tested, normal mood/affect, nml station & gait, sensation nml, No motor deficits, No sensory deficit Skin Exam: normal color, warm, dry Lymphatic Exam: No adenopathy SpO2 Interpretation: normal SpO2: 97 O2 Delivery: Room Air <THOMAS CORRIGAN - Last Filed: 03/14/21 06:05> - Nursing Vital Signs Nursing Vital Signs: Initial Vital Signs Temperature 98.2 F 03/14/21 04:52 Pulse Rate 73 03/14/21 04:52 Respiratory Rate 18 03/14/21 04:52 Blood Pressure 94/28 03/14/21 04:52 O2 Sat by Pulse Oximetry 97 03/14/21 04:52 Pain Scale Pain Intensity 2 Borderline hypotension (THOMAS CORRIGAN) Ordered Tests: Active Orders 24 hr Category Date Time Status ABDOMEN AND PELVIS W CONTRAST [CT] Stat Exams 03/14/21 06:08 Completed AMYLASE Stat Lab 03/14/21 05:41 Completed CBC W DIFF Stat Lab 03/14/21 05:41 Completed CMP Stat Lab 03/14/21 05:41 Completed LIPASE Stat Lab 03/14/21 05:41 Completed Lactic Acid Stat Lab 03/14/21 05:38 Completed TROPONIN Q3H Lab 03/14/21 05:41 Completed TROPONIN Q3H Lab 03/14/21 08:37 Received TROPONIN Q3H Lab 03/14/21 11:30 Ordered TROPONIN Q3H Lab 03/14/21 14:30 Ordered TROPONIN Q3H Lab 03/14/21 17:30 Ordered UA W/RFX UR CULTURE Stat Lab 03/14/21 05:48 Completed Medication Summary Discontinued Medications Generic Name Dose Route Start Last Admin Trade Name Freq PRN Reason Stop Dose Admin Fentanyl Citrate 50 mcg 03/14/21 05:42 03/14/21 05:49 Sublimaze 100 Mcg/2 Ml IV 03/14/21 05:43 50 mcg STAT ONE Administration Fentanyl Citrate Confirm 03/14/21 05:46 Sublimaze 100 Mcg/2 Ml Administered 03/14/21 05:47 Dose 100 mcg .ROUTE .STK-MED ONE Ondansetron HCl 4 mg 03/14/21 05:43 03/14/21 05:49 Zofran 4 Mg/2 Ml Vial IV 03/14/21 05:44 4 mg STAT ONE Administration Ondansetron HCl Confirm 03/14/21 05:44 Zofran 4 Mg/2 Ml Vial Administered 03/14/21 05:45 Dose 4 mg .ROUTE .STK-MED ONE Lab/Rad Data: Laboratory Result Diagrams 03/14/21 05:41 03/14/21 05:41 Laboratory Results 03/14/21 03/14/21 03/14/21 Range/Units 05:48 05:41 05:41 WBC (4.0-10.5) K/mm3 RBC (4.1-5.4) M/mm3 Hgb (12.0-16.0) gm/dl Hct (35-47) % MCV (78-100) fl MCH (26-32) pg MCHC (32-36) g/dl RDW (11.5-14.0) % Plt Count (150-450) K/mm3 MPV (7.5-11.0) fl Gran % (36.0-66.0) % Eos # (Auto) (0-0.5) Absolute Lymphs (auto) (1.0-4.6) Absolute Monos (auto) (0.0-1.3) Lymphocytes % (24.0-44.0) % Monocytes % (0.0-12.0) % Eosinophils % (0.00-5.0) % Basophils % (0.0-0.4) % Absolute Granulocytes (1.4-6.9) Basophils # (0-0.4) Sodium 136 L (137-145) mmol/L Potassium 4.0 (3.5-5.1) mmol/L Chloride 101 (98-107) mmol/L Carbon Dioxide 26 (22-30) mmol/L Anion Gap 13.4 (5-15) MEQ/L BUN 23 H (7-17) mg/dL Creatinine 0.53 (0.52-1.04) mg/dL Estimated GFR > 60.0 ML/MIN Glucose 137 H (74-106) mg/dL Lactic Acid (0.4-2.0) Calcium 9.3 (8.4-10.2) mg/dL Total Bilirubin 0.40 (0.2-1.3) mg/dL AST 33 (14-36) U/L ALT 31 (0-35) U/L Alkaline Phosphatase 84 (38-126) U/L Troponin I < 0.012 (0.000-0.034) ng/mL Serum Total Protein 7.0 (6.3-8.2) g/dL Albumin 4.1 (3.5-5.0) g/dL Amylase 48 (30-110) U/L Lipase 32 (23-300) U/L Urine Color STRAW (YELLOW) Urine Appearance CLEAR (CLEAR) Urine pH 7.0 (5-6) Ur Specific [place] 1.005 (1.005-1.025) Urine Protein NEGATIVE (Negative) Urine Ketones NEGATIVE (NEGATIVE) Urine Blood NEGATIVE (0-5) Mike/ul Urine Nitrite NEGATIVE (NEGATIVE) Urine Bilirubin NEGATIVE (NEGATIVE) Urine Urobilinogen NORMAL (0-1) mg/dL Ur Leukocyte Esterase NEGATIVE (NEGATIVE) Urine WBC (Auto) 0-2 (0-5) /HPF U Epithel Cells (Auto) RARE (FEW) /HPF Urine Bacteria (Auto) RARE (NEGATIVE) /HPF Urine Mucus (Auto) SLIGHT (NEGATIVE) /HPF Urine Culture Reflexed NO (NO) Urine Glucose NEGATIVE (NEGATIVE) mg/dL 03/14/21 03/14/21 Range/Units 05:41 05:38 WBC 10.1 (4.0-10.5) K/mm3 RBC 4.56 (4.1-5.4) M/mm3 Hgb 13.0 (12.0-16.0) gm/dl Hct 40.8 (35-47) % MCV 89.5 (78-100) fl MCH 28.5 (26-32) pg MCHC 31.9 L (32-36) g/dl RDW 16.6 H (11.5-14.0) % Plt Count 237 (150-450) K/mm3 MPV 9.2 (7.5-11.0) fl Gran % 78.2 H (36.0-66.0) % Eos # (Auto) 0.01 (0-0.5) Absolute Lymphs (auto) 1.60 (1.0-4.6) Absolute Monos (auto) 0.59 (0.0-1.3) Lymphocytes % 15.8 L (24.0-44.0) % Monocytes % 5.8 (0.0-12.0) % Eosinophils % 0.1 (0.00-5.0) % Basophils % 0.1 (0.0-0.4) % Absolute Granulocytes 7.93 H (1.4-6.9) Basophils # 0.01 (0-0.4) Sodium (137-145) mmol/L Potassium (3.5-5.1) mmol/L Chloride (98-107) mmol/L Carbon Dioxide (22-30) mmol/L Anion Gap (5-15) MEQ/L BUN (7-17) mg/dL Creatinine (0.52-1.04) mg/dL Estimated GFR ML/MIN Glucose (74-106) mg/dL Lactic Acid 1.3 (0.4-2.0) Calcium (8.4-10.2) mg/dL Total Bilirubin (0.2-1.3) mg/dL AST (14-36) U/L ALT (0-35) U/L Alkaline Phosphatase (38-126) U/L Troponin I (0.000-0.034) ng/mL Serum Total Protein (6.3-8.2) g/dL Albumin (3.5-5.0) g/dL Amylase (30-110) U/L Lipase (23-300) U/L Urine Color (YELLOW) Urine Appearance (CLEAR) Urine pH (5-6) Ur Specific [place] (1.005-1.025) Urine Protein (Negative) Urine Ketones (NEGATIVE) Urine Blood (0-5) Mike/ul Urine Nitrite (NEGATIVE) Urine Bilirubin (NEGATIVE) Urine Urobilinogen (0-1) mg/dL Ur Leukocyte Esterase (NEGATIVE) Urine WBC (Auto) (0-5) /HPF U Epithel Cells (Auto) (FEW) /HPF Urine Bacteria (Auto) (NEGATIVE) /HPF Urine Mucus (Auto) (NEGATIVE) /HPF Urine Culture Reflexed (NO) Urine Glucose (NEGATIVE) mg/dL - Progress Progress: improved, pain not gone completely, re-examined Discussed with .: Teressa Will see patient in: hospital (observation) Counseled pt/family regarding: lab results, diagnosis, rad results <ECHO SMITH - Last Filed: 03/14/21 09:36> - Progress Progress Note: 03/14/21 09:34 Patient is checked out to me at shift change from Dr. Corrigan with pending CT abdomen pelvis results. Patient presented with abdominal pain and multiple episodes of vomiting, received IV pain medication, on my evaluation feeling better but pain is not completely resolved and still nauseated. No diarrhea. Lab work grossly unremarkable, CT showed finding consistent with ileus versus gastroenteritis. I believe patient would benefit with IV hydration, bowel rest and slow resumption of regular food to avoid bowel obstruction as patient does have history of abdominal surgeries in the past. Discussed with Dr. Montoya and patient is accepted for admission. 03/14/21 09:35 (ECHO SMITH) <THOMAS CORRIGAN - Last Filed: 03/14/21 06:05> - Departure Departure Disposition: Observation Critical Care Time: No <ECHO SMITH - Last Filed: 03/14/21 09:36> - Departure Clinical Impression: Ileus, unspecified Condition: Stable Referrals: WANDER MONTOYA [Primary Care Provider] -
[2021-03-14] MEDS ORDERED: SUBLIMAZE 100 MCG/2 ML IV ONE (05:42)
[2021-03-14] MEDS ORDERED: Zofran 4 MG/2 ML VIAL IV ONE (05:43)
[2021-03-14] MEDS ORDERED: Zofran 4 MG/2 ML VIAL ONE (05:44)
[2021-03-14] MEDS ORDERED: SUBLIMAZE 100 MCG/2 ML ONE (05:46)
[2021-03-14 05:47] LABS: Absolute Neutrophil Ct (ANC) 7.93 (1.4-6.9); BASOPHIL % 0.1 % (0.0-0.4); Basophil (Absolute #) 0.01 (0-0.4); Eosinophil % 0.1 % (0.00-5.0); Eosinophil (Absolute #) 0.01 (0-0.5); Hematocrit 40.8 % (35-47); Lymphocytes % 15.8 % (24.0-44.0); Mean Cell Volume 89.5 fl (78-100); Mean Corpuscular Hemoglobin 28.5 pg (26-32); Mean Corpuscular Hgb Concent. 31.9 g/dl (32-36); Mean Platelet Volume 9.2 fl (7.5-11.0); Monocyte (Absolute #) 0.59 (0.0-1.3); Monocytes % 5.8 % (0.0-12.0); Neutrophil % 78.2 % (36.0-66.0); Platelet Count 237 K/mm3 (150-450); Red Blood Count 4.56 M/mm3 (4.1-5.4); Red Cell Distribution Width 16.6 % (11.5-14.0); White Blood Count 10.1 K/mm3 (4.0-10.5)
[2021-03-14 05:58] LABS: Appearance CLEAR (CLEAR); Bilirubin NEGATIVE (NEGATIVE); Blood NEGATIVE Ery/ul (0-5); Glucose NEGATIVE (NEGATIVE); Ketones NEGATIVE (NEGATIVE); Leukocyte Esterase NEGATIVE (NEGATIVE); Mucus SLIGHT /HPF (NEGATIVE); Nitrite NEGATIVE (NEGATIVE); Protein,Urine Dip NEGATIVE (Negative); Specific Gravity 1.005 (1.005-1.025); Urobilinogen NORMAL mg/dL (0-1); WBC 0-2 /HPF (0-5)
[2021-03-14 05:59] LABS: Bacteria RARE /HPF (NEGATIVE); Epithelial Cells RARE /HPF (FEW)
[2021-03-14 06:04] LABS: ALBUMIN 4.1 g/dL (3.5-5.0); ALKALINE PHOSPHATASE 84 U/L (38-126); AMYLASE 48 U/L (30-110); ANION GAP 13.4 MEQ/L (5-15); BLOOD UREA NITROGEN 23 mg/dL (7-17); CHLORIDE 101 mmol/L (98-107); Calcium 9.3 mg/dL (8.4-10.2); Carbon Dioxide 26 mmol/L (22-30); Creatinine 1 0.53 mg/dL (0.52-1.04); EST GLOMERULAR FILTRATION RATE > 60.0 ML/MIN; Glucose 137 mg/dL (74-106); LIPASE 32 U/L (23-300); SGOT/AST 33 U/L (14-36); SGPT/ALT 31 U/L (0-35); SODIUM 136 mmol/L (137-145)
--- NOTE | 2021-03-14 08:42 | XRAY ---
Indication: Abdomen pain, tenderness, and emesis. Multiple contiguous axial images obtained through the abdomen and pelvis using 80 cc Isovue 370 contrast. Comparison: September 11, 2020. Lung bases again demonstrates mild bibasilar dependent atelectasis more than before. Stable tiny right posterior calcified granuloma. No infiltrate or effusion. Heart borderline enlarged. New small hiatal hernia. Again gastric bypass surgery. Stomach and small bowel loops are now mildly fluid distended with synchronous fluid leveling favoring ileus versus gastroenteritis. Stable scattered colonic diverticulosis, mild fatty liver, and cholecystectomy. No free fluid/air. Remaining liver, pancreas, spleen, adrenal glands, kidneys, ureters, bladder, and uterus appear unremarkable. There remains moderate scattered aortoiliac calcifications. No AAA or pathologic retroperitoneal lymphadenopathy. Osseous structures intact again with mild/moderate dejected changes throughout the thoracolumbar spine. No ventral or inguinal hernias. Impression: 1. New fluid distended stomach and small bowel loops with synchronous fluid leveling, ileus versus gastroenteritis. 2. Incidental small hiatal hernia, colonic diverticulosis, fatty liver, and chronic bony findings.
[2021-03-14] MEDS ORDERED: DUONEB 0.5-3 MG/3 ml Neb IH PRN (13:56)
[2021-03-14] MEDS ORDERED: VENTOLIN COMMON CANISTER IH PRN (14:15)
[2021-03-14] MEDS: PROTONIX 40 MG IV IV SCH (14:28)
[2021-03-14] MEDS: Sodium Chloride 0.9% W/ 20 mEq KCl/LITER 1,000 ML IV SCH ×2 (14:29→20:48)
[2021-03-14] MEDS: Zofran 4 MG/2 ML VIAL IV PRN ×2 (14:32→20:45)
[2021-03-14] MEDS: MORPHINE SULFATE 2 MG INJ IV PRN ×2 (14:34→19:37)
[2021-03-14] MEDS ORDERED: [UNRECOGNIZED DRUG - OTHER] PO SCH (17:00)
[2021-03-14] MEDS ORDERED: ACETAMINOPHEN PO SCH (17:00)
[2021-03-14] MEDS ORDERED: OXYCODONE HCL PO SCH (17:00)
[2021-03-14] MEDS: Lotensin 10 MG PO SCH (17:59)
[2021-03-14] MEDS: Toprol Xl 100 MG PO SCH (18:00)
[2021-03-14] MEDS: PERCOCET TABLET 5/325MG PO SCH ×2 (18:09→20:46)
[2021-03-14] MEDS ORDERED: NON-FORMULARY ITEM (Budesonide/Formoterol Fumarate [Symbicort 160-4.5 Mcg Inhaler] 2 PUFF) IH SCH (22:00)
[2021-03-15] MEDS: MORPHINE SULFATE 2 MG INJ IV PRN ×2 (05:04→15:28)
[2021-03-15] MEDS: Zofran 4 MG/2 ML VIAL IV PRN ×3 (05:14→18:19)
[2021-03-15] MEDS: Sodium Chloride 0.9% W/ 20 mEq KCl/LITER 1,000 ML IV SCH ×3 (05:19→21:29)
[2021-03-15 05:53] LABS: Absolute Neutrophil Ct (ANC) 4.13 (1.4-6.9); BASOPHIL % 0.1 % (0.0-0.4); Basophil (Absolute #) 0.01 (0-0.4); Eosinophil % 0.9 % (0.00-5.0); Eosinophil (Absolute #) 0.07 (0-0.5); Hematocrit 39.1 % (35-47); Hemoglobin 11.9 gm/dl (12.0-16.0); Lymphocyte (Absolute #) 3.11 (1.0-4.6); Lymphocytes % 38.6 % (24.0-44.0); Mean Cell Volume 92.7 fl (78-100); Mean Corpuscular Hemoglobin 28.2 pg (26-32); Mean Corpuscular Hgb Concent. 30.4 g/dl (32-36); Mean Platelet Volume 9.2 fl (7.5-11.0); Monocyte (Absolute #) 0.73 (0.0-1.3); Monocytes % 9.1 % (0.0-12.0); Neutrophil % 51.3 % (36.0-66.0); Platelet Count 223 K/mm3 (150-450); Red Blood Count 4.22 M/mm3 (4.1-5.4); Red Cell Distribution Width 17.1 % (11.5-14.0); White Blood Count 8.1 K/mm3 (4.0-10.5)
[2021-03-15 06:04] LABS: ALBUMIN 3.4 g/dL (3.5-5.0); ALKALINE PHOSPHATASE 69 U/L (38-126); BLOOD UREA NITROGEN 16 mg/dL (7-17); CHLORIDE 106 mmol/L (98-107); Calcium 8.4 mg/dL (8.4-10.2); Carbon Dioxide 26 mmol/L (22-30); Creatinine 1 0.52 mg/dL (0.52-1.04); EST GLOMERULAR FILTRATION RATE > 60.0 ML/MIN; Glucose 93 mg/dL (74-106); Potassium 3.9 mmol/L (3.5-5.1); SGOT/AST 29 U/L (14-36); SGPT/ALT 28 U/L (0-35); SODIUM 139 mmol/L (137-145); Total Protein 6.2 g/dL (6.3-8.2)
[2021-03-15] MEDS ORDERED: Neurontin 100 MG PO SCH (08:00)
[2021-03-15] MEDS: PERCOCET TABLET 5/325MG PO SCH ×4 (09:26→21:27)
[2021-03-15] MEDS: PROTONIX 40 MG IV IV SCH (09:26)
[2021-03-15] MEDS: Toprol Xl 100 MG PO SCH (09:26)
[2021-03-15] MEDS: Lotensin 10 MG PO SCH (09:26)
[2021-03-15] MEDS: Neurontin 100 MG PO SCH ×3 (09:43→21:26)
[2021-03-15] MEDS ORDERED: NON-FORMULARY ITEM (Benazepril Hcl [Lotensin] 40 MG) PO SCH (10:00)
--- NOTE | 2021-03-15 10:42 | HP ---
CHIEF COMPLAINT: Vomiting, nausea and sciatic pain. HISTORY OF PRESENT ILLNESS: The patient is a 71 year-old white female who has been suffering with sciatic nerve pain. She has had two different procedures with Dr. Flores which essentially has not helped her pain. She reports the pain is constant and was apparently so intense she began having problems with vomiting. The patient was seen in the emergency room where she was found to have an ileus on x-ray and was admitted to the hospital for IV fluids, antiemetic and pain control. PAST MEDICAL/SURGICAL HISTORY: Significant for previous bowel obstruction where she had surgery to relieve this many years ago. She has a history of hyperlipidemia, hypertension, chronic obstructive pulmonary disease, rheumatoid arthritis, colorectal cancer, diverticulosis, gastroesophageal reflux disease, polyps, anxiety, breast cancer, bilateral knee replacement, bariatric surgery, lumpectomy, colonoscopy, rheumatoid arthritis. The patient's other surgeries include tubal ligation, mastectomy, T&A, joint replacement. The patient was tested and negative for COVID. HOME MEDICATIONS: EpiPen PRN basis, Prozac 20 mg a day, benazepril 40 mg a day, vitamin D3 2,000 units daily, Claritin 10 mg a day, gabapentin 100 mg at night, Symbicort Inhaler, calcium tablets, B12 injections monthly, Imodium 20 mg a day, golimumab which is Simponi ARIA for her rheumatoid arthritis, thiamine once a week, meclizine 25 mg PRN for dizziness, potassium chloride 10 mEq twice a day, metoprolol extended release 100 mg tablet daily, furosemide 40 mg a day. She takes oxycodone 7.5 t.i.d. PRN for pain. ALLERGIES: CODEINE. ADHESIVES. PHYSICAL EXAMINATION: The patient's vital signs on admission showed temperature to be 98.2F, pulse 73, respiratory rate 18, blood pressure 94/28 initially with O2 saturation 97% on room air. HEENT: Normocephalic, atraumatic. Pupils equal round reactive to light. Extraocular movements intact. Oropharynx is dry. NECK: Supple without lymphadenopathy, thyromegaly or JVD. CHEST: Clear to auscultation. HEART: Regular rate and rhythm. ABDOMEN: Tender and basically quiet bowel sounds. No guarding or rebound. No masses. EXTREMITIES: Without cyanosis, clubbing or edema. NEUROLOGIC: The patient is alert and oriented x3. No focal deficits noted. LAB DATA AND TESTS: Troponin normal. Her CMP showed a glucose of 137, BUN 23, creatinine 0.53. Electrolytes were normal. Liver enzymes were normal. Amylase and lipase were normal. Troponin was less than 0.012. UA was normal with specific gravity of 1.005. The white count was 10,100, hemoglobin 13.0, PLT count 237,000. Lactic acid was 1.3. The patient had CT abdomen and pelvis which showed new fluid-distended stomach and small bowel loops with synchronous fluid leveling consistent with ileus, incidental small hiatal hernia and colonic diverticulosis, fatty liver. ASSESSMENT: A patient with ileus admitted to the hospital for IV fluids and gut rest after which we will present her with clear liquids and advance her diet as tolerated. We will restart her home medications once she is not vomiting any longer. With the sciatic nerve complaints we will increase her gabapentin to 100 t.i.d. and extra 100 mg at nighttime.
[2021-03-16] MEDS: MORPHINE SULFATE 2 MG INJ IV PRN ×2 (03:25→21:09)
[2021-03-16] MEDS: Zofran 4 MG/2 ML VIAL IV PRN ×3 (03:34→16:50)
[2021-03-16] MEDS: Neurontin 100 MG PO SCH ×3 (07:31→21:12)
[2021-03-16] MEDS: Sodium Chloride 0.9% W/ 20 mEq KCl/LITER 1,000 ML IV SCH (07:31)
--- NOTE | 2021-03-16 09:07 | XRAY ---
Indication: Ileus. Comparison: CT abdomen/pelvis March 14, 2021. 2 view abdomen nonacute and nonobstructed with CT proven gastric bypass surgery. No focal bowel dilatation or free air. Solid organs unremarkable. Diffuse scattered vascular calcifications. Osseous structures demonstrates osteopenia and multilevel degenerative spondylosis. Lung bases demonstrates borderline cardiomegaly. Impression: Nonacute nonobstructed abdomen with chronic features.
[2021-03-16] MEDS: Lotensin 10 MG PO SCH (09:13)
[2021-03-16] MEDS: PROTONIX 40 MG IV IV SCH (09:13)
[2021-03-16] MEDS: PERCOCET TABLET 5/325MG PO SCH ×4 (09:13→21:12)
[2021-03-16] MEDS: Toprol Xl 100 MG PO SCH (09:13)
[2021-03-16] MEDS ORDERED: Sodium Chloride 0.9% W/ 20 mEq KCl/LITER 1,000 ML IV SCH (17:15)
[2021-03-17 05:23] LABS: Mean Cell Volume 94.4 fl (78-100); Mean Corpuscular Hemoglobin 28.1 pg (26-32); Mean Corpuscular Hgb Concent. 29.7 g/dl (32-36); Mean Platelet Volume 9.3 fl (7.5-11.0); Platelet Count 201 K/mm3 (150-450); Red Blood Count 3.92 M/mm3 (4.1-5.4); Red Cell Distribution Width 16.8 % (11.5-14.0); White Blood Count 7.2 K/mm3 (4.0-10.5)
[2021-03-17 05:37] LABS: ALBUMIN 3.4 g/dL (3.5-5.0); ALKALINE PHOSPHATASE 66 U/L (38-126); ANION GAP 9.4 MEQ/L (5-15); BLOOD UREA NITROGEN 11 mg/dL (7-17); CHLORIDE 105 mmol/L (98-107); Calcium 8.9 mg/dL (8.4-10.2); Carbon Dioxide 27 mmol/L (22-30); Creatinine 1 0.55 mg/dL (0.52-1.04); EST GLOMERULAR FILTRATION RATE > 60.0 ML/MIN; Glucose 100 mg/dL (74-106); Potassium 4.2 mmol/L (3.5-5.1); SGOT/AST 29 U/L (14-36); SGPT/ALT 29 U/L (0-35); SODIUM 138 mmol/L (137-145); Total Protein 6.1 g/dL (6.3-8.2)
[2021-03-17] MEDS: PERCOCET TABLET 5/325MG PO SCH ×4 (08:03→21:20)
[2021-03-17] MEDS: Neurontin 100 MG PO SCH ×3 (08:04→21:21)
[2021-03-17 08:53] LABS: AMYLASE 40 U/L (30-110); LIPASE 11 U/L (23-300)
--- NOTE | 2021-03-17 10:37 | XRAY ---
Indication: Abdomen pain, nausea, and vomiting. History of colon and breast cancer. Multiple contiguous axial images obtained through the abdomen and pelvis prior to and following 80 cc Isovue 370 contrast as ordered. Comparison: March 14, 2021. Lung bases again demonstrates minimal dependent atelectasis less than before. Stable tiny right posterior calcified granuloma. No infiltrate or effusion. Heart remains borderline enlarged. Stable small hiatal hernia. Noncontrasted images negative for pathologic visceral calcification/calculi. Noncontrasted stomach and bowel loops are nonobstructed again demonstrating gastric bypass surgery and scattered colonic diverticulosis. Previous fluid distended stomach and small bowel loops markedly improved. There remains mild midabdomen fluid distended small bowel loop with air-fluid leveling unchanged on pre/post contrast and delayed images favoring ileus. Stable mild fatty liver, cholecystectomy, and mild prominent biliary tree. New tiny cul-de-sac fluid. No free air. Postcontrast images demonstrates normal visceral enhancement and renal excretion. Remaining liver, pancreas, spleen, adrenal glands, kidneys, ureters, bladder, and uterus are unremarkable. Stable moderate scattered aortoiliac calcifications. Impression: 1. Continued negative for pathologic visceral calcification/calculi. 2. Improved fluid distended stomach and small bowel loops. There remains mild midabdomen fluid distended small bowel loops with air-fluid leveling favoring ileus. New tiny cul-de-sac fluid may be related. 3. Stable small hiatal hernia, bariatric surgery, colonic diverticulosis, and fatty liver.
[2021-03-17] MEDS: PROTONIX 40 MG IV IV SCH (11:09)
[2021-03-17] MEDS: Lotensin 10 MG PO SCH (11:11)
[2021-03-17] MEDS: Toprol Xl 100 MG PO SCH (11:11)
[2021-03-17] MEDS: Zofran 4 MG/2 ML VIAL IV PRN (14:20)
[2021-03-17] MEDS: Reglan 10 MG PO SCH (17:10)
[2021-03-18] MEDS: Neurontin 100 MG PO SCH ×3 (08:00→21:15)
[2021-03-18] MEDS: Toprol Xl 100 MG PO SCH (09:28)
[2021-03-18] MEDS: Reglan 10 MG PO SCH ×3 (09:28→16:42)
[2021-03-18] MEDS: Lotensin 10 MG PO SCH (09:28)
[2021-03-18] MEDS: PERCOCET TABLET 5/325MG PO SCH ×4 (09:28→21:15)
[2021-03-18] MEDS: PROTONIX 40 MG IV IV SCH (09:30)
--- NOTE | 2021-03-18 10:56 | PCM.NOTE ---
Date and Time: 03/18/21 1054 Subjective Assessment: patient is tolerating po and up moving around but still has some pain in her stomach when eating. Objective Exam General Appearance: no apparent distress, alert, obese Respiratory Exam: normal breath sounds, lungs clear, No respiratory distress Cardiovascular Exam: regular rate/rhythm, normal heart sounds Gastrointestinal/Abdomen Exam: soft, No tenderness, No mass Extremity Exam: normal inspection, normal range of motion OBJECTIVE DATA Vital Signs: Vital Signs - 24 hr Temp Pulse Resp BP Pulse Ox 03/18/21 07:54 97.1 F 56 L 18 142/64 92 L 03/18/21 04:03 97.4 F 62 16 163/70 96 03/17/21 23:44 97.5 F 58 L 22 151/67 95 03/17/21 19:56 97.5 F 63 20 126/57 97 03/17/21 16:00 97.2 F 52 L 18 147/65 94 L 03/17/21 12:00 98.4 F 52 L 16 142/63 95 Pain Assessment - Last Documented Pain Intensity 3 Pain Scale Used 0-10 Pain Scale Intake and Output: Intake & Output 03/15/21 03/16/21 03/17/21 03/18/21 11:59 11:59 11:59 11:59 Intake Total 1349 3483 1313 960 Output Total 700 400 Balance 649 3083 1313 960 Weight 106.2 kg 39.8 kg 39.9 kg 105.6 kg Radiology Exams: Radiology Procedures Category Date Time Status ABDOMEN AND PELVIS W&WO CONTRA [CT] Urgent Exams 03/17/21 06:59 Completed Assessment/Plan (1) Ileus, unspecified Current Visit: Yes Status: Acute Assessment & Plan: improving clinically, continue to observe. home when able to take po and no s ignificant pain issues Code(s): K56.7 - ILEUS, UNSPECIFIED (2) Abdominal pain Current Visit: No Status: Acute Code(s): R10.9 - UNSPECIFIED ABDOMINAL PAIN
[2021-03-18] MEDS: Zofran 4 MG/2 ML VIAL IV PRN (12:47)
[2021-03-19 05:05] VITALS: PULSE 53
[2021-03-19 07:42] VITALS: BP 161/71; O2SAT 93
[2021-03-19] MEDS: Neurontin 100 MG PO SCH (08:20)
[2021-03-19] MEDS: Reglan 10 MG PO SCH (08:20)
--- NOTE | 2021-03-19 09:08 | PCM.DS ---
Discharge Summary Date of Admission: 03/14/21 13:50 Admitting Physician: WANDER LECHUGA Primary Care Provider: WANDER LECHUGA Allergies Allergies codeine [Codeine] Adverse Reaction (Intermediate, Verified 03/14/21 05:15) Nausea and Vomiting, light headed from tylenol with codeine bandaids Adverse Reaction (Mild, Uncoded 03/14/21 05:15) redness/swelling Hospital Summary - Hospital Course Hospital Course: patient was admitted with abd pain and vomiting, found to have ileus. was treated by Dr Lechuga and has improved and now tolerating a regular diet, no pain or vomiting and she is requesting to go home today. - Vitals & Intake/Output Vital Signs: Vital Signs Temperature 98 F 03/19/21 07:41 Pulse Rate 53 L 03/19/21 07:41 Respiratory Rate 18 03/19/21 07:41 Blood Pressure 161/71 03/19/21 07:41 O2 Sat by Pulse Oximetry 93 L 03/19/21 07:41 Intake & Output: Intake & Output 03/16/21 03/17/21 03/18/21 03/19/21 11:59 11:59 11:59 11:59 Intake Total 3483 1313 960 780 Output Total 400 Balance 3083 1313 960 780 Weight 39.8 kg 39.9 kg 105.6 kg 105.3 kg - Lab Result Diagrams: 03/17/21 05:01 03/17/21 05:01 - Procedures and Test Procedures and Tests throughout Hospitalization: Therapy Orders & Screens 03/14/21 14:08 Oxygen NASAL CANNULA 2 lpm Comment: Diagnosis: Ileus Discharge Exam General Appearance: no apparent distress, alert, obese Respiratory Exam: normal breath sounds, lungs clear, No respiratory distress Cardiovascular Exam: regular rate/rhythm, normal heart sounds Gastrointestinal/Abdomen Exam: soft, normal bowel sounds, No tenderness, No mass Final Diagnosis/Problem List - Final Discharge Diagnosis/Problem (1) Ileus, unspecified Current Visit: Yes Status: Acute Assessment & Plan: started on reglan by Dr Lechuga, will send home with 10 day supply and he can manage on her 1 week f/u whether to continue chcf Code(s): K56.7 - ILEUS, UNSPECIFIED (2) Abdominal pain Current Visit: No Status: Acute Code(s): R10.9 - UNSPECIFIED ABDOMINAL PAIN - Discharge Disposition: Home, Self-Care Condition: Stable Prescriptions: New Metoclopramide HCl 10 mg [Reglan 10 MG] 10 mg PO TIDWMEALS #30 tablet Continue Fluoxetine HCl [Prozac] 20 mg PO DAILY Epinephrine [Epipen] 0.3 mg IM UD Cholecalciferol (Vitamin D3) [Vitamin D3] 2,000 unit PO DAILY Benazepril HCl [Lotensin] 40 mg PO DAILY Loratadine 10 mg [Claritin 10 mg] 10 mg PO DAILY Gabapentin 100 mg PO HS Budesonide/Formoterol Fumarate [Symbicort 160-4.5 Mcg Inhaler] 2 puff IH BID Calcium Carbonate/Vitamin D3 [Calcium 500 mg Chewable Tablet] 2 each PO BID Thiamine HCl [Vitamin B-1] 125 mg PO WEEKLY Cyanocobalamin 500 Mcg [Vitamin B-12 500 MCG] 500 mcg PO DAILY Famotidine 20 mg [Pepcid 20 MG] 20 mg PO BID Golimumab [Simponi Aria] 50 mg IV UD Meclizine HCl 25 mg [Antivert 25 mg] 1 tab PO DAILY PRN PRN Reason: Dizziness Potassium Chloride 10 Meq Tab* [Klor Con 10 MEQ] 8 meq PO BID Metoprolol Succinate 100 mg [Toprol Xl 100 MG] 100 mg PO DAILY Furosemide 40 mg [Lasix 40 MG] 40 mg PO DAILY Albuterol Sulfate [Ventolin Hfa] 1 inh IH Q4-6HPRN PRN PRN Reason: Shortness Of Breath Oxycodone HCl/Acetaminophen [Oxycodone-Acetaminophn 7.5-325] 1 each PO QID Instructions: High Fiber Diet, Preventing Falls in the Older Adult, Sciatica (DC), Diverticulosis (DC) Follow up with: WANDER LECHUGA [Primary Care Provider] - 03/24/21 1:00 pm
[2021-03-19] MEDS: PROTONIX 40 MG IV IV SCH (09:43)
[2021-03-19] MEDS: Lotensin 10 MG PO SCH (09:51)
[2021-03-19] MEDS: PERCOCET TABLET 5/325MG PO SCH (09:51)
[2021-03-19] MEDS: Toprol Xl 100 MG PO SCH (09:52)
== END 2021-03-19 11:55 | disposition home or self-care (01) ==
LOC: ED 04:47 → MED SURG 13:50
PROVIDERS: ADMIT Family Medicine; ATTEND Family Medicine
DX: K56.7 Ileus, unspecified (principal); R10.84 Generalized abdominal pain; R11.2 Nausea with vomiting, unspecified; R53.1 Weakness; Z79.899 Other long term (current) drug therapy; I10 Essential (primary) hypertension; E78.00 Pure hypercholesterolemia, unspecified; J44.9 Chronic obstructive pulmonary disease, unspecified; Z20.822 Contact with and (suspected) exposure to COVID-19
CPT/HCPCS: 36415; 74021; 74177; 74178; 80053; 81001; 82150; 83605; 83690; 84484; 85025; 85027; 94760; 96374; 96375; 99285; G0378; U0003; J1642; J2270; J2405; J3010; A9270-GY

== ENCOUNTER 2021-03-19 23:52 | Observation (INO) | payer MEDICARE ==
[2021-03-20] MEDS ORDERED: MORPHINE SULFATE 4 MG INJ IV ONE (00:02)
[2021-03-20] MEDS ORDERED: Zofran 4 MG/2 ML VIAL IV ONE (00:02)
[2021-03-20] MEDS ORDERED: Zofran 4 MG/2 ML VIAL ONE (00:36)
[2021-03-20] MEDS ORDERED: MORPHINE SULFATE 4 MG INJ ONE (00:37)
[2021-03-20] MEDS: Sodium Chloride 0.9% 1000 ML 1,000 ML IV SCH (00:40)
[2021-03-20 01:02] LABS: BASOPHIL % 0.2 % (0.0-0.4); Basophil (Absolute #) 0.02 (0-0.4); Eosinophil % 0.2 % (0.00-5.0); Eosinophil (Absolute #) 0.02 (0-0.5); Hematocrit 39.5 % (35-47); Hemoglobin 12.3 gm/dl (12.0-16.0); Lymphocytes % 8.5 % (24.0-44.0); Mean Cell Volume 91.6 fl (78-100); Mean Corpuscular Hemoglobin 28.5 pg (26-32); Mean Corpuscular Hgb Concent. 31.1 g/dl (32-36); Mean Platelet Volume 9.4 fl (7.5-11.0); Monocytes % 4.3 % (0.0-12.0); Neutrophil % 86.8 % (36.0-66.0); Platelet Count 218 K/mm3 (150-450); Red Blood Count 4.31 M/mm3 (4.1-5.4); Red Cell Distribution Width 16.4 % (11.5-14.0); White Blood Count 11.7 K/mm3 (4.0-10.5)
[2021-03-20 01:18] LABS: ALBUMIN 3.7 g/dL (3.5-5.0); ALKALINE PHOSPHATASE 84 U/L (38-126); ANION GAP 10.2 MEQ/L (5-15); BLOOD UREA NITROGEN 14 mg/dL (7-17); CHLORIDE 101 mmol/L (98-107); Calcium 8.8 mg/dL (8.4-10.2); Carbon Dioxide 28 mmol/L (22-30); Creatinine 1 0.56 mg/dL (0.52-1.04); EST GLOMERULAR FILTRATION RATE > 60.0 ML/MIN; Glucose 131 mg/dL (74-106); LIPASE 21 U/L (23-300); Potassium 3.4 mmol/L (3.5-5.1); SGOT/AST 26 U/L (14-36); SGPT/ALT 23 U/L (0-35); SODIUM 136 mmol/L (137-145); Total Protein 6.6 g/dL (6.3-8.2)
[2021-03-20 01:33] LABS: Appearance CLEAR (CLEAR); Bilirubin NEGATIVE (NEGATIVE); Blood NEGATIVE Ery/ul (0-5); Glucose NEGATIVE (NEGATIVE); Ketones SMALL (NEGATIVE); Leukocyte Esterase NEGATIVE (NEGATIVE); Nitrite NEGATIVE (NEGATIVE); Protein,Urine Dip NEGATIVE (Negative); Specific Gravity 1.013 (1.005-1.025); Urobilinogen NEGATIVE mg/dL (0-1)
--- NOTE | 2021-03-20 01:47 | ERPHSYRPT ---
- History of Present Illness Time Seen by Provider: 03/19/21 23:54 Patient Subjective Stated Complaint: Patient states " I got home from hospital today and then around 200PM my stomach started back up again and then I started vomiting around 730PM and I haven't stopped." Triage Nursing Assessment: Patient arrived to ED via ambulance. Patient A/O times 4. Patient able to follow directions without difficulty. Patient was discharged from [facility] today per Dr. Simental. Patient states MD asked her if she felt like going home and she had told MD "yes". Patient stated that at supper she had ate couple pieces of toast and then afterwards her stomach started with sharp pains and then the vomiting started. ABD large, obese with tenderness in center with palpitation. Patient denies any loose stools. Patient was given Fentanyl IV by EMS and patient stated he pain was much better at a 3. Patient upon arrival walked to bathroom without difficulty to pee. Urine yellow in color. Patient denies any pain or burning upon urination. Patient stated she was admitted to hospital for ilius. Patient with no dependent edema noted. + Radial and pedal pulses noted bilateral. Skin turgor < 3 seconds. Patient's oral mucosa moist. No S/S of dehydration noted. Physician History: 71 years old female with history of partial colectomy, recently admitted for ileus, discharged yesterday morning presented back in the ER with increasing pain in upper abdomen with vomiting. Patient reports she started to have upper abdominal pain around 5 PM and since 7 PM she is having multiple episodes of nonprojectile, nonbilious vomiting, unable to hold anything down. Pain is severe sharp shooting, aggravated with movements and palpation/vomiting and again relieving factors. She received fentanyl IV on the radial ER by EMS and feeling little better but still having pain. Feels weak fatigued tired and dehydrated. Timing/Duration: yesterday, constant, gradual onset, worse Activities at Onset: rest Quality: sharpness Abdominal Pain Onset Location: epigastric, periumbilical Pain Radiation: no radiation Severity of Pain-Max: severe Severity of Pain-Current: moderate Modifying Factors: Improves With: nothing Associated Symptoms: nausea, vomiting Previous symptoms: same symptoms as today Allergies/Adverse Reactions: bee venom protein (honey bee) Adverse Reaction (Verified 03/20/21 00:03) Anaphylactic Reaction bandaids Adverse Reaction (Mild, Uncoded 03/20/21 00:03) redness/swelling Home Medications: Epinephrine [Epipen] 0.3 mg IM UD 01/31/16 [History] Fluoxetine HCl [Prozac] 20 mg PO DAILY 01/31/16 [History] Benazepril HCl [Lotensin] 40 mg PO DAILY 12/20/16 [History] Cholecalciferol (Vitamin D3) [Vitamin D3] 2,000 unit PO DAILY 12/20/16 [History] Loratadine 10 mg [Claritin 10 mg] 10 mg PO DAILY 07/03/17 [History] Gabapentin 100 mg PO HS 11/11/17 [History] Budesonide/Formoterol Fumarate [Symbicort 160-4.5 Mcg Inhaler] 2 puff IH BID 07/05/20 [History] Calcium Carbonate/Vitamin D3 [Calcium 500 mg Chewable Tablet] 2 each PO BID 07/20/20 [History] Cyanocobalamin 500 Mcg [Vitamin B-12 500 MCG] 500 mcg PO DAILY 07/20/20 [History] Famotidine 20 mg [Pepcid 20 MG] 20 mg PO BID 07/20/20 [History] Golimumab [Simponi Aria] 50 mg IV UD 07/20/20 [History] Thiamine HCl [Vitamin B-1] 125 mg PO WEEKLY 07/20/20 [History] Meclizine HCl 25 mg [Antivert 25 mg] 1 tab PO DAILY PRN 09/11/20 [History] Potassium Chloride 10 Meq Tab* [Klor Con 10 MEQ] 8 meq PO BID 09/11/20 [History] Metoprolol Succinate 100 mg [Toprol Xl 100 MG] 100 mg PO DAILY 11/23/20 [History] Albuterol Sulfate [Ventolin Hfa] 1 inh IH Q4-6HPRN PRN 12/01/20 [History] Furosemide 40 mg [Lasix 40 MG] 40 mg PO DAILY 12/01/20 [History] Oxycodone HCl/Acetaminophen [Oxycodone-Acetaminophn 7.5-325] 1 each PO QID 01/13/21 [History] Hx Tetanus, Diphtheria Vaccination/Date Given: Yes Hx Influenza Vaccination/Date Given: Yes Hx Pneumococcal Vaccination/Date Given: Yes Immunizations Up to Date: Yes Travel Risk - International Travel Have you traveled outside of the country in past 3 weeks: No - Coronavirus Screening Are you exhibiting any of the following symptoms?: No Close contact with a COVID-19 positive Pt in past 14-21 Days: No - Vaccine Status Have you recieved a Covid-19 vaccination: Yes 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: [employer] - Vaccination Dates Date of 2cond Vaccination (if applicable): 12/12/20 - Review of Systems Constitutional: Fatigue, Weakness Eyes: No Symptoms Ears, Nose, & Throat: No Symptoms Respiratory: No Symptoms Cardiac: No Symptoms Abdominal/Gastrointestinal: Abdominal Pain, Nausea, Vomiting Genitourinary Symptoms: No Symptoms Musculoskeletal: Myalgias Skin: No Symptoms Neurological: No Symptoms Psychological: No Symptoms Endocrine: No Symptoms Hematologic/Lymphatic: No Symptoms Immunological/Allergic: No Symptoms - Past Medical History Pertinent Past Medical History: Yes Neurological History: No Pertinent History ENT History: No Pertinent History Cardiac History: High Cholesterol, Hypertension Respiratory History: COPD Endocrine Medical History: No Pertinent History Musculoskeletal History: Rheumatoid Arthritis GI Medical History: Colorectal Cancer, Diverticulosis, GERD, Polyps History: No Pertinent History Psycho-Social History: Anxiety Female Reproductive Disorders: Breast Cancer Other Medical History: BILATERAL Knee replacement 2008, BARIATRIC SURGERY 2009; BREAST CA W/ LUMPECTOMY 2003, colonoscopy, rheumatoid arthritis - Past Surgical History Past Surgical History: Yes Neuro Surgical History: No Pertinent History Cardiac: No Pertinent History Respiratory: No Pertinent History Gastrointestinal: Hernia Repair, Other Genitourinary: No Pertinent History Musculoskeletal: Joint Replacement, Orthopedic Surgery Female Surgical History: Tubal Ligation, Mastectomy Other Surgical History: T&A,Bjorn knee replacement, umbil. hernior.,bariatric surgery, breast cancer with partial mastectomy left, lumpectomy right breast, tubal, colon resection, states CVL port placed and removed - Social History Smoking Status: Former smoker How long have you smoked: quit 2007 Exposure to second hand smoke: Yes Drug Use: none Patient Lives Alone: Yes Significant Family History: heart disease, cancer - Female History Hx Last Menstrual Period: POST - Nursing Vital Signs Nursing Vital Signs: Initial Vital Signs Temperature 97.1 F 03/19/21 23:53 Pulse Rate 96 H 03/19/21 23:53 Respiratory Rate 20 08/15/21 23:53 Blood Pressure 122/55 08/15/21 23:53 O2 Sat by Pulse Oximetry 92 L 03/19/21 23:53 Pain Scale Pain Intensity 0 - Physical Exam General Appearance: no apparent distress, alert Eye Exam: PERRL/EOMI, eyes nml inspection Ears, Nose, Throat Exam: normal ENT inspection, TMs normal, pharyngeal erythema Neck Exam: normal inspection, non-tender, full range of motion Respiratory Exam: normal breath sounds, lungs clear Cardiovascular Exam: regular rate/rhythm, normal heart sounds Gastrointestinal/Abdomen Exam: soft, tenderness (Upper abdomen), guarding (Upper abdomen), No normal bowel sounds (Decreased) Back Exam: normal inspection, normal range of motion Extremity Exam: normal inspection, normal range of motion Neurologic Exam: alert, oriented x 3, cooperative Skin Exam: normal color SpO2 Interpretation: normal SpO2: 93 O2 Delivery: Room Air Ordered Tests: Active Orders 24 hr Category Date Time Status IV Insertion STAT Care 03/20/21 00:02 Active NPO (ED) STAT Care 03/20/21 00:02 Active ABDOMEN AND PELVIS W/0 CONTRAS [CT] Stat Exams 03/20/21 00:03 Taken CBC W DIFF Stat Lab 03/20/21 00:58 Completed CMP Stat Lab 03/20/21 00:58 Completed LIPASE Stat Lab 03/20/21 00:58 Completed UA W/RFX UR CULTURE Stat Lab 03/20/21 00:05 Completed Medication Summary Generic Name Dose Route Start Last Admin Trade Name Freq PRN Reason Stop Dose Admin Sodium Chloride 1,000 mls @ 125 mls/hr 03/20/21 00:15 03/20/21 00:40 Sodium Chloride 0.9% 1000 Ml IV 04/19/21 00:14 125 mls/hr .Q8H SALVADOR Administration Discontinued Medications Generic Name Dose Route Start Last Admin Trade Name Freq PRN Reason Stop Dose Admin Morphine Sulfate 4 mg 03/20/21 00:02 03/20/21 00:40 Morphine Sulfate 4 Mg Inj IV 03/20/21 00:03 4 mg STAT ONE Administration Morphine Sulfate Confirm 03/20/21 00:37 Morphine Sulfate 4 Mg Inj Administered 03/20/21 00:38 Dose 4 mg .ROUTE .STK-MED ONE Ondansetron HCl 4 mg 03/20/21 00:02 03/20/21 00:40 Zofran 4 Mg/2 Ml Vial IV 03/20/21 00:03 4 mg STAT ONE Administration Ondansetron HCl Confirm 03/20/21 00:36 Zofran 4 Mg/2 Ml Vial Administered 03/20/21 00:37 Dose 4 mg .ROUTE .STK-MED ONE Lab/Rad Data: Laboratory Result Diagrams 03/20/21 00:58 03/20/21 00:58 Laboratory Results 03/20/21 03/20/21 03/20/21 Range/Units 00:58 00:58 00:05 WBC 11.7 H (4.0-10.5) K/mm3 RBC 4.31 (4.1-5.4) M/mm3 Hgb 12.3 (12.0-16.0) gm/dl Hct 39.5 (35-47) % MCV 91.6 (78-100) fl MCH 28.5 (26-32) pg MCHC 31.1 L (32-36) g/dl RDW 16.4 H (11.5-14.0) % Plt Count 218 (150-450) K/mm3 MPV 9.4 (7.5-11.0) fl Gran % 86.8 H (36.0-66.0) % Eos # (Auto) 0.02 (0-0.5) Absolute Lymphs (auto) 1.00 (1.0-4.6) Absolute Monos (auto) 0.50 (0.0-1.3) Lymphocytes % 8.5 L (24.0-44.0) % Monocytes % 4.3 (0.0-12.0) % Eosinophils % 0.2 (0.00-5.0) % Basophils % 0.2 (0.0-0.4) % Absolute Granulocytes 10.20 H (1.4-6.9) Basophils # 0.02 (0-0.4) Sodium 136 L (137-145) mmol/L Potassium 3.4 L (3.5-5.1) mmol/L Chloride 101 (98-107) mmol/L Carbon Dioxide 28 (22-30) mmol/L Anion Gap 10.2 (5-15) MEQ/L BUN 14 (7-17) mg/dL Creatinine 0.56 (0.52-1.04) mg/dL Estimated GFR > 60.0 ML/MIN Glucose 131 H (74-106) mg/dL Calcium 8.8 (8.4-10.2) mg/dL Total Bilirubin 0.40 (0.2-1.3) mg/dL AST 26 (14-36) U/L ALT 23 (0-35) U/L Alkaline Phosphatase 84 (38-126) U/L Serum Total Protein 6.6 (6.3-8.2) g/dL Albumin 3.7 (3.5-5.0) g/dL Lipase 21 L (23-300) U/L Urine Color STRAW (YELLOW) Urine Appearance CLEAR (CLEAR) Urine pH 7.0 (5-6) Ur Specific Cl[place]ier 1.013 (1.005-1.025) Urine Protein NEGATIVE (Negative) Urine Ketones SMALL (NEGATIVE) Urine Blood NEGATIVE (0-5) Mike/ul Urine Nitrite NEGATIVE (NEGATIVE) Urine Bilirubin NEGATIVE (NEGATIVE) Urine Urobilinogen NEGATIVE (0-1) mg/dL Ur Leukocyte Esterase NEGATIVE (NEGATIVE) Urine WBC (Auto) NONE (0-5) /HPF Urine RBC (Auto) 3-5 (0-2) /HPF U Epithel Cells (Auto) NONE (FEW) /HPF Urine Bacteria (Auto) NONE (NEGATIVE) /HPF Urine Culture Reflexed NO (NO) Urine Glucose NEGATIVE (NEGATIVE) mg/dL - Progress Progress: improved Progress Note: 03/20/21 01:50 She is given fluids and morphine along with Zofran, on reevaluation feeling better. Work-up showed white count of 11 with mild hypokalemia. I have repeated CT which showed finding consistent with enterocolitis/ileus. I will co ntinue with fluids and n.p.o. Patient would be admitted back to hospital. 03/20/21 01:51 Discussed with : Andrea Will see patient in: hospital (observation) Counseled pt/family regarding: lab results, diagnosis, rad results - Departure Departure Disposition: Observation Clinical Impression: Ileus, unspecified Condition: Stable Critical Care Time: No Referrals: WANDER MONTOYA [Primary Care Provider] -
[2021-03-20] MEDS ORDERED: DUONEB 0.5-3 MG/3 ml Neb IH PRN (09:09)
[2021-03-20] MEDS: Sodium Chloride 0.9% W/ 20 mEq KCl/LITER 1,000 ML IV SCH ×2 (09:37→19:18)
[2021-03-20] MEDS: MORPHINE SULFATE 2 MG INJ IV PRN ×4 (09:41→23:25)
[2021-03-20] MEDS: PROTONIX 40 MG IV IV SCH (09:47)
[2021-03-20] MEDS: Advair Hfa 230/21 Mcg COMMON CANISTER IH SCH ×2 (11:12→19:48)
[2021-03-20] MEDS ORDERED: Ventolin Hfa MDI IH PRN (11:40)
[2021-03-20] MEDS: Reglan 10 MG/2 ML IV SCH ×2 (16:52→23:30)
[2021-03-20] MEDS ORDERED: EPINEPHRINE 0.3 MG IM SCH (17:15)
[2021-03-20] MEDS: Toprol Xl 100 MG PO SCH (18:46)
--- NOTE | 2021-03-20 20:38 | XRAY ---
Exam: CT of the abdomen and pelvis without IV contrast from 03/20/2021. CTDI: 21.98 mGy Comparison: CT of the abdomen and pelvis without and with IV contrast from 03/17/2021. Indication: 71-year-old female with recurrent vomiting; rule out obstruction. The patient has a history of diverticulosis, GERD, colorectal cancer, and breast cancer with partial left mastectomy. She also has a history of prior bariatric surgery and hernia repair. Technique: Non-IV contrast axial images were obtained through the abdomen and pelvis. Reconstructed coronal and sagittal images were created and reviewed. Findings: There is minimal posterior compression atelectasis versus scarring within both posterior lung sulci. A tiny calcified granuloma is seen within the posterior right lung sulcus. Minimal curvilinear scarring/atelectasis is seen within the lingula at the anterior left lung base. Numerous surgical suture material is seen within the medial aspect of the left upper quadrant consistent with the patient's history of prior gastric bypass surgery. I also note some surgical clips within the right hemiabdomen, apparently from prior partial right hemicolectomy. There are some scattered mildly dilated small bowel loops within the lower abdomen and upper pelvis measuring up to 3.5 cm to 3.7 cm in diameter. Fluid as well as fluid mixed with some stool is seen within these dilated small bowel loops. I also note some scattered air-fluid levels at these sites. This most likely relates to an ileus and/or enterocolitis. Partial distal small bowel obstruction is considered less likely, but is not completely excluded. There is no free intraperitoneal air or free intraperitoneal fluid. There is mild hepatic steatosis. No liver mass is seen. The patient is status post cholecystectomy. There is mild prominence of the intrahepatic and extrahepatic bile ducts representing no change. The spleen appears relatively small and reveals no mass. The pancreas is diffusely atrophic. The adrenal glands appear of normal size and configuration. The kidneys are of unremarkable size. I believe there are a few small bilateral nonobstructing renal calculi. No hydronephrosis is seen. The ureters appear grossly unremarkable. Moderate atherosclerotic vascular calcification is seen within the abdominal aorta and iliac arteries. No abdominal aortic aneurysm or abnormal retroperitoneal lymphadenopathy is seen. No ventral abdominal wall hernia is noted. The appendix is not definitely seen within the right lower quadrant and may be surgically absent. Moderate diverticulosis is seen within the distal descending colon and sigmoid colon without evidence of diverticulitis. The uterus appears atrophic and is anteflexed. The urinary bladder is partially distended and appears grossly unremarkable. No abnormal pelvic mass or pelvic lymphadenopathy is seen. There is no free fluid within the pelvis. The skeleton reveals no acute fracture or aggressive bone lesion. Moderate facet joint arthropathy is seen bilaterally at L4-L5 and L5-S1. I also note mild degenerative disc disease at L1-L2, as well as at L4-L5 and L5-S1. Marginal vertebral and osteophytes are seen within the lower thoracic spine and throughout the lumbar spine. Impression: 1. Abnormal, but nonspecific bowel gas pattern with mild distention of small bowel loops within the lower abdomen and upper pelvis containing both fluid and stool within it. These bowel loops measure up to a maximum of 3.7 cm in diameter. It appears the patient has had a partial right hemicolectomy. Scattered air-fluid levels are seen within the mildly dilated lower abdominal and pelvic small bowel. These findings may be due to a localized ileus or enterocolitis. A partial mid small bowel obstruction is not completely excluded, but considered less likely. The bowel gas pattern appears relatively similar to 03/17/2021. 2. There is evidence of prior gastric bypass surgery. 3. Hepatic steatosis, mild diffuse atrophy of the pancreas, and some bilateral nonobstructing renal calculi (right greater than left) without hydronephrosis are seen. 4. Colonic diverticulosis within the distal descending colon and sigmoid colon without evidence of acute diverticulitis. 5. No free intraperitoneal air or free intraperitoneal fluid is seen.
[2021-03-21] MEDS: MORPHINE SULFATE 2 MG INJ IV PRN ×2 (04:39→20:03)
[2021-03-21] MEDS: Sodium Chloride 0.9% W/ 20 mEq KCl/LITER 1,000 ML IV SCH (04:44)
[2021-03-21] MEDS: Zofran 4 MG/2 ML VIAL IV PRN ×2 (04:47→20:31)
[2021-03-21 05:44] LABS: Absolute Neutrophil Ct (ANC) 4.44 (1.4-6.9); BASOPHIL % 0.2 % (0.0-0.4); Basophil (Absolute #) 0.02 (0-0.4); Eosinophil % 1.5 % (0.00-5.0); Eosinophil (Absolute #) 0.13 (0-0.5); Hematocrit 39.7 % (35-47); Hemoglobin 12.1 gm/dl (12.0-16.0); Lymphocyte (Absolute #) 3.42 (1.0-4.6); Lymphocytes % 39.8 % (24.0-44.0); Mean Cell Volume 93.4 fl (78-100); Mean Corpuscular Hemoglobin 28.5 pg (26-32); Mean Corpuscular Hgb Concent. 30.5 g/dl (32-36); Mean Platelet Volume 10.2 fl (7.5-11.0); Monocyte (Absolute #) 0.58 (0.0-1.3); Monocytes % 6.8 % (0.0-12.0); Neutrophil % 51.7 % (36.0-66.0); Platelet Count 218 K/mm3 (150-450); Red Blood Count 4.25 M/mm3 (4.1-5.4); Red Cell Distribution Width 16.7 % (11.5-14.0); White Blood Count 8.6 K/mm3 (4.0-10.5)
[2021-03-21 05:50] LABS: ALBUMIN 3.5 g/dL (3.5-5.0); ALKALINE PHOSPHATASE 71 U/L (38-126); ANION GAP 9.6 MEQ/L (5-15); BLOOD UREA NITROGEN 10 mg/dL (7-17); CHLORIDE 104 mmol/L (98-107); Calcium 8.9 mg/dL (8.4-10.2); Carbon Dioxide 28 mmol/L (22-30); Creatinine 1 0.55 mg/dL (0.52-1.04); EST GLOMERULAR FILTRATION RATE > 60.0 ML/MIN; Glucose 90 mg/dL (74-106); Potassium 3.9 mmol/L (3.5-5.1); SGOT/AST 28 U/L (14-36); SGPT/ALT 23 U/L (0-35); SODIUM 138 mmol/L (137-145); Total Protein 6.3 g/dL (6.3-8.2)
[2021-03-21] MEDS: Reglan 10 MG/2 ML IV SCH ×2 (07:37→15:41)
[2021-03-21] MEDS: D5W/0.45NS W/ 20mEq KCl 1000 ML 1,000 ML IV SCH ×2 (09:40→18:24)
[2021-03-21] MEDS: Toprol Xl 100 MG PO SCH (09:40)
[2021-03-21] MEDS: PROTONIX 40 MG IV IV SCH (09:40)
--- NOTE | 2021-03-21 12:46 | XRAY ---
Exam: Small bowel follow-through exam from 03/21/2021. Comparison: CT of the abdomen and pelvis without IV contrast from 03/20/2021. Indication: 71-year-old female with mid abdominal pain, possible ileus. The patient has a history of prior partial right colon resection, gastric bypass surgery, cholecystectomy, and abdominal hernia repair. Findings: The preliminary signal and communications maintainer film of the abdomen reveals slight prominence of some small bowel overlying the lower abdomen and upper pelvis measuring up to about 3.5 cm in diameter. However, I do note some unremarkable bowel loops within the right lower quadrant and distally within the colon. Some surgical clips are seen on each side of midline within the pelvis. I also see some surgical suture material within the medial aspect of the left upper quadrant, apparently due to prior gastric bypass surgery. The patient was given a cup of oral contrast with 50% diluted Gastrografin and approximately 200 ML's of thin liquid barium. She drank a total of 240 ML's of this mixed contrast. Fluoroscopy time was 1.4 minutes. On the 0 minute prone images, I note a minimal hiatal hernia. There appear to be a quick small bowel transit time with barium reaching the splenic flexure of the first prone image obtained at 0 minute grace. I also took 20 minutes delayed prone CAO and OCCITAN images. The duodenum and proximal jejunum appeared unremarkable. However, there was some focal distention of the mid jejunum measuring up to 4.5 cm in diameter. The mucosal fold pattern appeared normal. There appear to be a transition point of this dilated lower mid abdominal small bowel segment with unremarkable appearing distal small bowel within the right lower quadrant. This transition point is located just superior to the right sacroiliac joint. The distal small bowel appeared unremarkable. Apparently, the patient has had a partial right hemicolectomy. Anastomosis between the distal small bowel and remaining ascending colon appears unremarkable. Several compressions fluoroscopic spot images were obtained. Impression: 1. The overall appearance is remarkable for a partial mid to distal small bowel obstruction with a transition point appearing to be just superior to the right sacroiliac joint. Small bowel caliber within the right lower quadrant distal to this transition point was unremarkable. Consider an adhesion.
[2021-03-21] MEDS: Advair Hfa 230/21 Mcg COMMON CANISTER IH SCH (19:40)
[2021-03-21] MEDS: Sodium Chloride 0.9% 1000 ML 1,000 ML IV SCH (19:42)
[2021-03-22] MEDS: Reglan 10 MG/2 ML IV SCH ×3 (00:51→18:40)
[2021-03-22] MEDS: MORPHINE SULFATE 2 MG INJ IV PRN ×5 (01:00→18:45)
[2021-03-22] MEDS: D5W/0.45NS W/ 20mEq KCl 1000 ML 1,000 ML IV SCH ×2 (01:43→20:53)
[2021-03-22] MEDS: Zofran 4 MG/2 ML VIAL IV PRN ×2 (05:38→14:20)
[2021-03-22 05:58] LABS: Absolute Neutrophil Ct (ANC) 3.42 (1.4-6.9); BASOPHIL % 0.3 % (0.0-0.4); Basophil (Absolute #) 0.02 (0-0.4); Eosinophil % 2.8 % (0.00-5.0); Eosinophil (Absolute #) 0.18 (0-0.5); Hematocrit 37.6 % (35-47); Hemoglobin 11.6 gm/dl (12.0-16.0); Lymphocyte (Absolute #) 2.29 (1.0-4.6); Lymphocytes % 35.2 % (24.0-44.0); Mean Cell Volume 92.8 fl (78-100); Mean Corpuscular Hemoglobin 28.6 pg (26-32); Mean Corpuscular Hgb Concent. 30.9 g/dl (32-36); Monocytes % 9.2 % (0.0-12.0); Neutrophil % 52.5 % (36.0-66.0); Platelet Count 209 K/mm3 (150-450); Red Blood Count 4.05 M/mm3 (4.1-5.4); Red Cell Distribution Width 16.4 % (11.5-14.0); White Blood Count 6.5 K/mm3 (4.0-10.5)
[2021-03-22 06:10] LABS: ALBUMIN 3.4 g/dL (3.5-5.0); ALKALINE PHOSPHATASE 61 U/L (38-126); ANION GAP 8.1 MEQ/L (5-15); BLOOD UREA NITROGEN 5 mg/dL (7-17); CHLORIDE 104 mmol/L (98-107); Carbon Dioxide 30 mmol/L (22-30); Creatinine 1 0.56 mg/dL (0.52-1.04); EST GLOMERULAR FILTRATION RATE > 60.0 ML/MIN; Glucose 105 mg/dL (74-106); Potassium 4.1 mmol/L (3.5-5.1); SGOT/AST 27 U/L (14-36); SGPT/ALT 22 U/L (0-35); SODIUM 138 mmol/L (137-145); Total Protein 6.2 g/dL (6.3-8.2)
--- NOTE | 2021-03-22 09:10 | CONS ---
CONSULT DATE: 03/21/2021 HISTORY: The patient was seen for Dr. Celso Kellogg who was carbon sequestration plant engineer yesterday when the consult came in. A 71 year-old patient has past history of partial colectomy for colon cancer by Dr. Yuri Kellogg currently last July and had some constipation and ended up in the hospital again here last week and released, ended up coming back. Dr. Yuri Kellogg ordered a small bowel follow through on her. Small bowel follow through performed by Dr. Kline. Radiologist questioned whether partial obstruction. She did have a couple of bowel movements at the time when she was given small bowel follow through and she had another one now. She complains that most of her soreness is sharp ache in the epigastrium. She denies any bloody stools. PAST MEDICAL HISTORY: Hypercholesterolemia, hypertension, chronic obstructive pulmonary disease. She had breast cancer. She had colon cancer. She has rheumatoid arthritis in the past. Diverticular disease. She had reflux in the past. PAST SURGICAL HISTORY: Breast cancer surgery in the past, lumpectomy. She had partial colectomy for colon cancer in the past with Dr. Kellogg. She had bilateral knee replacement. She had bariatric surgery eleven years ago. She thinks they did Chilo-en-Y. She said she had a hernia repair in the past as well. She had port placed in the past. HOME MEDICATIONS: She has an EpiPen available. Prozac, Lotensin, vitamin D3, Claritin, gabapentin, budesonide, Symbicort, calcium, vitamin B12, Pepcid, Simponi Aria, vitamin B1, Antivert, Klor-Con, Toprol, Ventolin HFA for chronic obstructive pulmonary disease, Lasix, oxycodone, acetaminophen. ALLERGIES: BEE VENOM. BANDAIDS. FAMILY HISTORY: Negative in regards to this specific problem. SOCIAL HISTORY: No alcohol abuse. REVIEW OF SYSTEMS: Fourteen systems reviewed pertinent for as noted above. She does wear glasses. She is overweight. No chest pain or palpitations other systems negative or noncontributory as above and per preadmission questionnaire. LAB DATA AND TESTS: Liver function test within normal limits. White count was 8, hemoglobin 12, PLT count 218,000. PHYSICAL EXAMINATION: GENERAL: No acute distress. HEENT: Sclera nonicteric. NECK: No JVD. CHEST: Equal excursion, nonlabored breathing. CVS: Regular rate and rhythm. ABDOMEN: Very soft. She is overweight. The patient does have mild tenderness epigastrium. No peritoneal signs. EXTREMITIES: No significant edema. No cyanosis. NEURO: Alert, moving extremities symmetrically. PSYCH: Appropriate mood and affect. IMPRESSION: Upper abdominal pain unclear etiology could be some gastritis, peptic ulcer disease or could be related to partial obstruction as radiologists questioned that. She is nontoxic. She did have some bowel movements. No emergent surgery necessary at this point. I will discuss with Dr. Yuri Kellogg or Dr. Celso Kellogg which will be down here tomorrow to redo her films and decide on a plan. Whether she needs consideration of endoscopy first or consideration of any other intervention if she failed to continue to improve or whether she needs endoscopy to rule out other etiology of her aches and pains versus possibility of partial obstruction causing some of her aches and pains. Either way, no emergent surgery necessary. The patient agrees to the plan. I will have Dr. Kellogg review her films and decide if further intervention necessary at this time. No emergent surgery necessary at this moment.
[2021-03-22] MEDS: Toprol Xl 100 MG PO SCH (09:44)
[2021-03-22] MEDS: PROTONIX 40 MG IV IV SCH (09:44)
[2021-03-22] MEDS ORDERED: Lactated Ringers 1,000 ML IV ONE (16:07)
[2021-03-22] MEDS ORDERED: DIPRIVAN 200 MG/20 ML IV ONE (16:08)
[2021-03-22] MEDS ORDERED: Ketamine HCl 50 MG/ML ONE (16:08)
[2021-03-22] MEDS ORDERED: Lactated Ringers 1,000 ML IV SCH (16:30)
[2021-03-22] MEDS ORDERED: PROTONIX 40 MG IV IV SCH (20:15)
[2021-03-22] MEDS: Carafate 1 GM PO SCH (20:54)
[2021-03-22] MEDS ORDERED: BENADRYL 25 MG CAPSULE ONE (21:13)
[2021-03-22] MEDS ORDERED: DELTASONE 20 MG PO ONE (21:15)
[2021-03-22] MEDS ORDERED: BENADRYL 25 MG CAPSULE PO ONE (21:15)
[2021-03-22] MEDS ORDERED: BENADRYL 12.5 MG/5 ML PO ONE (21:20)
[2021-03-23] MEDS: Reglan 10 MG/2 ML IV SCH (00:07)
[2021-03-23] MEDS: MORPHINE SULFATE 2 MG INJ IV PRN (05:31)
[2021-03-23 05:54] LABS: Hematocrit 40.9 % (35-47); Hemoglobin 12.8 gm/dl (12.0-16.0); Mean Cell Volume 92.5 fl (78-100); Mean Corpuscular Hgb Concent. 31.3 g/dl (32-36); Mean Platelet Volume 10.1 fl (7.5-11.0); Platelet Count 232 K/mm3 (150-450); Red Blood Count 4.42 M/mm3 (4.1-5.4); Red Cell Distribution Width 16.2 % (11.5-14.0); White Blood Count 4.5 K/mm3 (4.0-10.5)
[2021-03-23] MEDS: Zofran 4 MG/2 ML VIAL IV PRN (06:08)
[2021-03-23 06:15] LABS: ALBUMIN 3.9 g/dL (3.5-5.0); ALKALINE PHOSPHATASE 64 U/L (38-126); ANION GAP 11.4 MEQ/L (5-15); BLOOD UREA NITROGEN 4 mg/dL (7-17); CHLORIDE 102 mmol/L (98-107); Calcium 9.6 mg/dL (8.4-10.2); Carbon Dioxide 29 mmol/L (22-30); Creatinine 1 0.58 mg/dL (0.52-1.04); EST GLOMERULAR FILTRATION RATE > 60.0 ML/MIN; Glucose 154 mg/dL (74-106); Potassium 4.4 mmol/L (3.5-5.1); SGOT/AST 32 U/L (14-36); SGPT/ALT 25 U/L (0-35); SODIUM 138 mmol/L (137-145); Total Protein 6.6 g/dL (6.3-8.2)
[2021-03-23] MEDS: Carafate 1 GM PO SCH ×3 (07:19→16:29)
[2021-03-23] MEDS ORDERED: ZOFRAN ODT 4 MG PO PRN (08:16)
--- NOTE | 2021-03-23 08:37 | OP ---
SURGERY DATE/TIME: 03/22/2021 1625 PREOPERATIVE DIAGNOSIS: Epigastric abdominal pain. POSTOPERATIVE DIAGNOSES: 1) Pain. 2) Marginal ulcer. PROCEDURE: Esophagogastrojejunoscopy with biopsy. SURGEON: Celso Kellogg M.D. ANESTHESIA: IV. ESTIMATED BLOOD LOSS: 20 cc. CONDITION: Patient condition stable. COMPLICATIONS: None. SPECIMEN: Pouch biopsy for Helicobacter pylori. HISTORY: The patient is a 71 year-old female with history of pawel-en-Y gastric bypass, presents with epigastric abdominal pain. CT scan showing just some minimally dilated small bowel. Small bowel follow through nonobstructive. She had epigastric abdominal pain on exam. Had discussion with the patient the risk of bleeding, perforation and she elected to proceed with endoscopy. FINDINGS: Small, marginal ulcer, nonbleeding, satisfactory otherwise. DESCRIPTION OF PROCEDURE: The patient was brought to the endoscopy suite. Time out performed. Anesthesia induced. The gastroscope inserted through the mouth and advanced to the pouch. There is no pouchitis. The anastomosis was patent. The blind end is healthy. There is a marginal ulcer at the crease opposite the anastomosis. There is small, less than 1.5 cm linear ulcer without bleeding and a clean base. The limb is patent and healthy. A biopsy of the pouch is taken for Helicobacter pylori. The scope is then withdrawn. The esophagus is normal. RECOMMENDATIONS: Recommend Protonix 40 mg p.o. b.i.d. and sucralfate 1 gm q.i.d. for one month and recommended follow up in two weeks in the office.
[2021-03-23] MEDS: D5W/0.45NS W/ 20mEq KCl 1000 ML 1,000 ML IV SCH (08:47)
[2021-03-23] MEDS: Protonix 40MG Tablet PO SCH (09:07)
[2021-03-23] MEDS: Toprol Xl 100 MG PO SCH (09:07)
[2021-03-23] MEDS ORDERED: PROTONIX 40 MG IV IV SCH (10:00)
[2021-03-23] MEDS: Reglan 10 MG PO SCH ×2 (11:26→16:29)
[2021-03-23] MEDS: PERCOCET TABLET 5/325MG PO PRN ×2 (14:57→19:02)
[2021-03-23] MEDS ORDERED: Pepcid 20 MG PO SCH (22:00)
[2021-03-24] MEDS: Carafate 1 GM PO SCH ×3 (07:48→11:40)
[2021-03-24] MEDS: Reglan 10 MG PO SCH ×2 (07:54→11:40)
[2021-03-24] MEDS: Protonix 40MG Tablet PO SCH (09:19)
[2021-03-24] MEDS: PERCOCET TABLET 5/325MG PO PRN ×2 (09:19→14:02)
[2021-03-24 11:20] VITALS: O2SAT 95
[2021-03-24 13:29] VITALS: BP 120/58; PULSE 52
--- NOTE | 2021-04-27 11:07 | HP ---
CHIEF COMPLAINT: Vomiting and abdominal pain. HISTORY OF PRESENT ILLNESS: The patient is a 71-year-old white female who recently been in the hospital and discharged home. She was home only a short period of time before she returned to the hospital due to issues with vomiting and abdominal pain. The patient had previous evaluation and admission to the hospital for the same thing. The patient had been unable to keep anything down and there was however eventually passage of stool. The patient was felt to be okay for discharge home by my covering physician, Dr. Poli Simental, but returned fairly quickly due to the persistence of her problems which was felt likely secondary to small bowel obstruction. PAST MEDICAL/SURGICAL HISTORY: The patient's history otherwise is significant for previous partial colectomy for colon cancer. She also had breast cancer. Previous surgical history includes Chilo-en-Y surgery for weight loss. Medical history is otherwise significant for chronic obstructive pulmonary disease, hyperlipidemia, hypertension, rheumatoid arthritis, diverticulosis, gastroesophageal reflux disease. She also previously had bilateral knee replacement surgery. HOME MEDICATIONS: EpiPen PRN basis, fluoxetine 20 mg daily, benazepril 40 mg a day, vitamin D3 daily, loratadine 10 mg a day, gabapentin 100 mg at night. She uses as Symbicort inhaler, calcium tablets twice a day, vitamin B12 daily, famotidine 20 mg a day, Simponi Aria 50 mg IV once a week, thiamine 125 mg once a week, meclizine 25 mg PRN for dizziness, potassium 10 mEq twice a day, metoprolol extended release 100 mg daily, Albuterol PRN, Furosemide 40 mg daily, oxycodone 7.5/325 four times a day PRN for pain. ALLERGIES: ACETAMINOPHEN. CODEINE. ADHESIVE. PHYSICAL EXAMINATION: The patient's vital signs on admission showed temperature 97.1F, pulse 96, respiratory rate 20 and blood pressure 122/55. O2 saturation was 96% on room air. HEENT: Normocephalic, atraumatic. Pupils equal round reactive to light. Extraocular movements intact. Oropharynx is slightly dry. NECK: Supple without lymphadenopathy, thyromegaly or JVD. CHEST: Clear to auscultation. HEART: Regular rate and rhythm without murmurs, rubs or gallops heard. ABDOMEN: Soft but tender and seemed to be guarding somewhat in the upper abdomen. EXTREMITIES: Without significant cyanosis, clubbing or edema. NEUROLOGIC: The patient is alert and oriented x3. No focal deficits were noted. LAB DATA AND TESTS: The patient's laboratory studies showed her white count to be 11.7, hemoglobin 12.3, PLT count 218,000. Her electrolytes were fairly normal. BUN 14, creatinine 0.56. Her liver enzymes were normal. UA was essentially normal as well. ASSESSMENT: The patient was felt the need to be admitted to the hospital again for further gut rest, IV fluids and surgical consultation.
--- NOTE | 2021-04-27 14:32 | DS ---
DISCHARGE DIAGNOSES: 1) SMALL BOWEL OBSTRUCTION. 2) CARCINOMATOSIS. CONSULTATION: Dr. Jaya Barr, Surgery. HOSPITAL COURSE: The patient is a 71-year-old white female with partial small bowel obstruction. A more recent CT scan showed more of a probable complete obstruction. The surgeons were consulted. The patient had previously had upper endoscopy showing a small ulcer in what was remaining of the upper stomach after Chilo-en-Y procedure. The patient did have previous history of colon cancer and breast cancer. The patient did have further evaluation including surgery which revealed the patient to have carcinomatosis throughout the stomach and abdomen. The patient was felt to be essentially nonoperable for repair of the small bowel obstruction problem. The patient recovered from surgery nicely. She was able to keep some fluids down and the patient referred to me at this time as she did not wish to have any further intervention and wished to go home. The patient was therefore discharged home on 03/24/2021 with instructions to follow up with me in the office in the next several days. She was instructed that it would be a very good idea to see her oncologist again for consideration of palliative treatment for her carcinomatosis.
== END 2021-03-24 16:00 | disposition home or self-care (01) ==
LOC: ED 23:52 → MED SURG 03-20 09:01
PROVIDERS: ADMIT Family Medicine; ATTEND Family Medicine
DX: K56.609 Unspecified intestinal obstruction, unspecified as to partial versus complete obstruction (principal); C80.0 Disseminated malignant neoplasm, unspecified; K28.9 Gastrojejunal ulcer, unspecified as acute or chronic, without hemorrhage or perforation; R11.2 Nausea with vomiting, unspecified; Z79.899 Other long term (current) drug therapy; I10 Essential (primary) hypertension; J44.9 Chronic obstructive pulmonary disease, unspecified; Z85.038 Personal history of other malignant neoplasm of large intestine; Z85.3 Personal history of malignant neoplasm of breast; R19.7 Diarrhea, unspecified; Z20.822 Contact with and (suspected) exposure to COVID-19; E78.5 Hyperlipidemia, unspecified
CPT/HCPCS: 36000; 36415; 43239; 74176; 74250; 80053; 81001; 83690; 85025; 85027; 87081; 93268; 94760; 96374; 96375; 99285; G0378; U0003; 99100; J1642; J2270; J2405; J2704; Q0162; A9270-GY

== ENCOUNTER 2021-03-26 18:58 | Inpatient (IN) | payer MEDICARE ==
[2021-03-26] MEDS ORDERED: Zofran 4 MG/2 ML VIAL IV ONE (19:42)
[2021-03-26] MEDS ORDERED: MORPHINE SULFATE 4 MG INJ IV ONE (19:42)
[2021-03-26] MEDS ORDERED: Sodium Chloride 0.9% 500 ML 500 ML IV ONE ×2 (19:42→20:13)
--- NOTE | 2021-03-26 19:52 | ERPHSYRPT ---
- History of Present Illness Time Seen by Provider: 03/26/21 19:12 Historian: patient Exam Limitations: no limitations Patient Subjective Stated Complaint: pt reports abdominal pain for which this is her third trip to the ER. reports recent admission. pt states that her abdominal pain is not improving with her new medications. pt states that she is not leaving until something is done about her pain. Triage Nursing Assessment: pt is aox3, pt appears in no acute distress, pupils perrl, afebrile, resps easy and non labored, cap refill < 3 seconds, abd soft, tender diffusely, pt skin pink warm dry, Physician History: 71 years old female with was recently admitted multiple times for upper abdominal pain with ileus/partial small bowel obstruction presented in the ER with sudden onset upper abdominal pain for the last 3-hour, continuous, moderate intensity with associated nausea no vomiting. Pain is similar to previous episodes. Timing/Duration: hour(s) (3), sudden, worse Activities at Onset: rest Quality: sharpness Abdominal Pain Onset Location: epigastric, periumbilical Pain Radiation: back Severity of Pain-Max: moderate Severity of Pain-Current: moderate Modifying Factors: Worsens With: movement, palpation Associated Symptoms: nausea Previous symptoms: same symptoms as today Allergies/Adverse Reactions: bee venom protein (honey bee) Adverse Reaction (Verified 03/26/21 19:19) Anaphylactic Reaction bandaids Adverse Reaction (Mild, Uncoded 03/26/21 19:19) redness/swelling Home Medications: Epinephrine [Epipen] 0.3 mg IM UD 01/31/16 [History] Budesonide/Formoterol Fumarate [Symbicort 160-4.5 Mcg Inhaler] 2 puff IH BID 07/05/20 [History] Famotidine 20 mg [Pepcid 20 MG] 20 mg PO BID 07/20/20 [History] Metoprolol Succinate 100 mg [Toprol Xl 100 MG] 100 mg PO DAILY 11/23/20 [History] Albuterol Sulfate [Ventolin Hfa] 1 inh IH Q4-6HPRN PRN 12/01/20 [History] Oxycodone HCl/Acetaminophen [Oxycodone-Acetaminophn 7.5-325] 1 each PO QID 01/13/21 [History] Hx Tetanus, Diphtheria Vaccination/Date Given: Yes Hx Influenza Vaccination/Date Given: Yes Hx Pneumococcal Vaccination/Date Given: Yes Immunizations Up to Date: Yes Travel Risk - International Travel Have you traveled outside of the country in past 3 weeks: No - Coronavirus Screening Are you exhibiting any of the following symptoms?: No Close contact with a COVID-19 positive Pt in past 14-21 Days: No - Vaccine Status Have you recieved a Covid-19 vaccination: Yes Aligning Checker: [place] - Vaccination Dates Date of 2cond Vaccination (if applicable): unk - Review of Systems Constitutional: No Symptoms Eyes: No Symptoms Ears, Nose, & Throat: No Symptoms Respiratory: No Symptoms Cardiac: No Symptoms Abdominal/Gastrointestinal: Abdominal Pain, Nausea Genitourinary Symptoms: No Symptoms Musculoskeletal: No Symptoms Neurological: No Symptoms Psychological: No Symptoms Endocrine: No Symptoms Hematologic/Lymphatic: No Symptoms Immunological/Allergic: No Symptoms - Past Medical History Pertinent Past Medical History: Yes Neurological History: No Pertinent History ENT History: No Pertinent History Cardiac History: High Cholesterol, Hypertension Respiratory History: COPD Endocrine Medical History: No Pertinent History Musculoskeletal History: Rheumatoid Arthritis GI Medical History: Colorectal Cancer, Diverticulosis, GERD, Polyps History: No Pertinent History Psycho-Social History: Anxiety Female Reproductive Disorders: Breast Cancer Other Medical History: BILATERAL Knee replacement 2008, BARIATRIC SURGERY 2009; BREAST CA W/ LUMPECTOMY 2003, colonoscopy, rheumatoid arthritis - Past Surgical History Past Surgical History: Yes Neuro Surgical History: No Pertinent History Cardiac: No Pertinent History Respiratory: No Pertinent History Gastrointestinal: Hernia Repair, Other Genitourinary: No Pertinent History Musculoskeletal: Joint Replacement, Orthopedic Surgery Female Surgical History: Tubal Ligation, Mastectomy Other Surgical History: T&A,Bjorn knee replacement, umbil. hernior.,bariatric surgery, breast cancer with partial mastectomy left, lumpectomy right breast, tubal, colon resection, states CVL port placed and removed - Social History Smoking Status: Never smoker How long have you smoked: quit 2007 Exposure to second hand smoke: Yes Drug Use: none Patient Lives Alone: Yes Significant Family History: heart disease, cancer - Female History Hx Now: No - Nursing Vital Signs Nursing Vital Signs: Initial Vital Signs Temperature 98.3 F 03/26/21 18:59 Pulse Rate 66 03/26/21 18:59 Respiratory Rate 20 03/26/21 18:59 Blood Pressure 147/61 03/26/21 18:59 O2 Sat by Pulse Oximetry 98 03/26/21 18:59 Pain Scale Pain Intensity 3 - Physical Exam General Appearance: no apparent distress, alert Eye Exam: PERRL/EOMI, eyes nml inspection Ears, Nose, Throat Exam: normal ENT inspection, pharynx normal Neck Exam: normal inspection, non-tender, full range of motion Respiratory Exam: normal breath sounds, lungs clear Cardiovascular Exam: regular rate/rhythm, normal heart sounds Gastrointestinal/Abdomen Exam: soft, tenderness (Upper abdomen with minimal guarding), guarding, No normal bowel sounds (Absent), No distention Back Exam: normal inspection, normal range of motion Extremity Exam: normal inspection, normal range of motion Neurologic Exam: alert, oriented x 3, cooperative Skin Exam: normal color SpO2 Interpretation: normal SpO2: 98 O2 Delivery: Room Air Ordered Tests: Active Orders 24 hr Category Date Time Status IV Insertion STAT Care 03/26/21 19:42 Active NPO (ED) STAT Care 03/26/21 19:42 Active ABDOMEN AND PELVIS W/0 CONTRAS [CT] Stat Exams 03/26/21 19:42 Taken CBC W DIFF Stat Lab 03/26/21 20:12 Completed CMP Stat Lab 03/26/21 20:12 Completed LIPASE Stat Lab 03/26/21 20:12 Completed UA W/RFX UR CULTURE Stat Lab 03/26/21 19:51 Completed Medication Summary Discontinued Medications Generic Name Dose Route Start Last Admin Trade Name Hiteshq PRN Reason Stop Dose Admin Sodium Chloride 500 mls @ 500 mls/hr 03/26/21 19:42 03/26/21 21:18 Sodium Chloride 0.9% 500 Ml IV 03/26/21 20:41 Infused .Q1H ONE Infusion Sodium Chloride Confirm 03/26/21 20:08 Sodium Chloride 0.9% 1000 Ml Administered 03/26/21 20:09 Dose 1,000 mls @ ud .ROUTE .STK-MED ONE Sodium Chloride Confirm 03/26/21 20:13 Sodium Chloride 0.9% 500 Ml Administered 03/26/21 20:14 Dose 500 mls @ ud IV .STK-MED ONE Morphine Sulfate 4 mg 03/26/21 19:42 03/26/21 20:18 Morphine Sulfate 4 Mg Inj IV 03/26/21 19:43 4 mg STAT ONE Administration Morphine Sulfate Confirm 03/26/21 20:08 Morphine Sulfate 4 Mg Inj Administered 03/26/21 20:09 Dose 4 mg .ROUTE .STK-MED ONE Ondansetron HCl 4 mg 03/26/21 19:42 03/26/21 20:18 Zofran 4 Mg/2 Ml Vial IV 03/26/21 19:43 4 mg STAT ONE Administration Ondansetron HCl Confirm 03/26/21 20:08 Zofran 4 Mg/2 Ml Vial Administered 03/26/21 20:09 Dose 4 mg .ROUTE .STK-MED ONE Lab/Rad Data: Laboratory Result Diagrams 03/26/21 20:12 03/26/21 20:12 Laboratory Results 03/26/21 03/26/21 03/26/21 Range/Units 20:12 20:12 19:51 WBC 9.2 (4.0-10.5) K/mm3 RBC 4.37 (4.1-5.4) M/mm3 Hgb 12.9 (12.0-16.0) gm/dl Hct 40.3 (35-47) % MCV 92.2 (78-100) fl MCH 29.5 (26-32) pg MCHC 32.0 (32-36) g/dl RDW 16.0 H (11.5-14.0) % Plt Count 220 (150-450) K/mm3 MPV 9.7 (7.5-11.0) fl Gran % 64.5 (36.0-66.0) % Eos # (Auto) 0.15 (0-0.5) Absolute Lymphs (auto) 2.34 (1.0-4.6) Absolute Monos (auto) 0.75 (0.0-1.3) Lymphocytes % 25.5 (24.0-44.0) % Monocytes % 8.2 (0.0-12.0) % Eosinophils % 1.6 (0.00-5.0) % Basophils % 0.2 (0.0-0.4) % Absolute Granulocytes 5.91 (1.4-6.9) Basophils # 0.02 (0-0.4) Sodium 137 (137-145) mmol/L Potassium 3.5 (3.5-5.1) mmol/L Chloride 105 (98-107) mmol/L Carbon Dioxide 24 (22-30) mmol/L Anion Gap 12.3 (5-15) MEQ/L BUN 21 H (7-17) mg/dL Creatinine 0.67 (0.52-1.04) mg/dL Estimated GFR > 60.0 ML/MIN Glucose 110 H (74-106) mg/dL Calcium 9.2 (8.4-10.2) mg/dL Total Bilirubin 0.40 (0.2-1.3) mg/dL AST 24 (14-36) U/L ALT 20 (0-35) U/L Alkaline Phosphatase 75 (38-126) U/L Serum Total Protein 6.7 (6.3-8.2) g/dL Albumin 3.9 (3.5-5.0) g/dL Lipase 25 (23-300) U/L Urine Color YELLOW (YELLOW) Urine Appearance CLEAR (CLEAR) Urine pH 5.0 (5-6) Ur Specific [place] 1.028 (1.005-1.025) Urine Protein NEGATIVE (Negative) Urine Ketones TRACE (NEGATIVE) Urine Blood NEGATIVE (0-5) Mike/ul Urine Nitrite NEGATIVE (NEGATIVE) Urine Bilirubin NEGATIVE (NEGATIVE) Urine Urobilinogen 2 (0-1) mg/dL Ur Leukocyte Esterase NEGATIVE (NEGATIVE) Urine WBC (Auto) 0-2 (0-5) /HPF Urine RBC (Auto) NONE (0-2) /HPF U Epithel Cells (Auto) RARE (FEW) /HPF Urine Bacteria (Auto) NONE SEEN (NEGATIVE) /HPF Urine Mucus (Auto) MODERATE (NEGATIVE) /HPF Urine Culture Reflexed NO (NO) Urine Glucose NEGATIVE (NEGATIVE) mg/dL - Progress Progress: improved, re-examined Progress Note: 03/26/21 22:09 36 years old is evaluated for upper abdominal pain with previous multiple surgeries and recent multiple admission for ileus/partial small bowel obstruction. She is given symptomatic treatment for pain and fluid bolus. Work-up showed normal white count, grossly unremarkable chemistries. CT showed finding consistent with small bowel obstruction with transition point in the mid ileum and right lower quadrant. No perforation. Discussed with Dr. Lechuga, reviewed history, work-up and patient is being admitted. At this point patient is not vomiting and will hold off on NG intubation and Dr. Lechuga agrees with it. Surgery will be consulted in the morning. Discussed with DrBill: Teressa Will see patient in: hospital (observation) Counseled pt/family regarding: lab results, diagnosis, rad results - Departure Departure Disposition: Observation Clinical Impression: Small bowel obstruction Condition: Stable Critical Care Time: No Referrals: WANDER LECHUGA [Primary Care Provider] -
[2021-03-26] MEDS ORDERED: Sodium Chloride 0.9% 1000 ML 0 ML ONE (20:08)
[2021-03-26] MEDS ORDERED: Zofran 4 MG/2 ML VIAL ONE (20:08)
[2021-03-26] MEDS ORDERED: MORPHINE SULFATE 4 MG INJ ONE (20:08)
[2021-03-26 20:12] LABS: Appearance CLEAR (CLEAR); Bilirubin NEGATIVE (NEGATIVE); Blood NEGATIVE Ery/ul (0-5); Epithelial Cells RARE /HPF (FEW); Glucose NEGATIVE (NEGATIVE); Ketones TRACE (NEGATIVE); Leukocyte Esterase NEGATIVE (NEGATIVE); Mucus MODERATE /HPF (NEGATIVE); Nitrite NEGATIVE (NEGATIVE); Protein,Urine Dip NEGATIVE (Negative); Specific Gravity 1.028 (1.005-1.025); Urobilinogen 2 mg/dL (0-1); WBC 0-2 /HPF (0-5)
[2021-03-26 20:15] LABS: Bacteria NONE SEEN /HPF (NEGATIVE)
[2021-03-26 20:16] LABS: Absolute Neutrophil Ct (ANC) 5.91 (1.4-6.9); BASOPHIL % 0.2 % (0.0-0.4); Basophil (Absolute #) 0.02 (0-0.4); Eosinophil % 1.6 % (0.00-5.0); Eosinophil (Absolute #) 0.15 (0-0.5); Hematocrit 40.3 % (35-47); Hemoglobin 12.9 gm/dl (12.0-16.0); Lymphocyte (Absolute #) 2.34 (1.0-4.6); Lymphocytes % 25.5 % (24.0-44.0); Mean Cell Volume 92.2 fl (78-100); Mean Corpuscular Hemoglobin 29.5 pg (26-32); Mean Platelet Volume 9.7 fl (7.5-11.0); Monocyte (Absolute #) 0.75 (0.0-1.3); Monocytes % 8.2 % (0.0-12.0); Neutrophil % 64.5 % (36.0-66.0); Platelet Count 220 K/mm3 (150-450); Red Blood Count 4.37 M/mm3 (4.1-5.4); White Blood Count 9.2 K/mm3 (4.0-10.5)
[2021-03-26 20:28] LABS: ALBUMIN 3.9 g/dL (3.5-5.0); ALKALINE PHOSPHATASE 75 U/L (38-126); ANION GAP 12.3 MEQ/L (5-15); BLOOD UREA NITROGEN 21 mg/dL (7-17); CHLORIDE 105 mmol/L (98-107); Calcium 9.2 mg/dL (8.4-10.2); Carbon Dioxide 24 mmol/L (22-30); Creatinine 1 0.67 mg/dL (0.52-1.04); EST GLOMERULAR FILTRATION RATE > 60.0 ML/MIN; Glucose 110 mg/dL (74-106); LIPASE 25 U/L (23-300); Potassium 3.5 mmol/L (3.5-5.1); SGOT/AST 24 U/L (14-36); SGPT/ALT 20 U/L (0-35); SODIUM 137 mmol/L (137-145); Total Protein 6.7 g/dL (6.3-8.2)
[2021-03-26] MEDS: Sodium Chloride 0.9% W/ 20 mEq KCl/LITER 1,000 ML IV SCH (22:54)
[2021-03-27] MEDS ORDERED: MORPHINE SULFATE 4 MG INJ ONE (00:24)
[2021-03-27] MEDS ORDERED: MORPHINE SULFATE 4 MG INJ IV ONE (00:24)
[2021-03-27] MEDS: MORPHINE SULFATE 2 MG INJ IV PRN ×5 (04:31→22:45)
[2021-03-27 05:27] LABS: Absolute Neutrophil Ct (ANC) 3.42 (1.4-6.9); BASOPHIL % 0.3 % (0.0-0.4); Basophil (Absolute #) 0.02 (0-0.4); Eosinophil % 2.1 % (0.00-5.0); Eosinophil (Absolute #) 0.14 (0-0.5); Hematocrit 38.4 % (35-47); Hemoglobin 12.1 gm/dl (12.0-16.0); Lymphocytes % 37.4 % (24.0-44.0); Mean Cell Volume 92.5 fl (78-100); Mean Corpuscular Hemoglobin 29.2 pg (26-32); Mean Corpuscular Hgb Concent. 31.5 g/dl (32-36); Mean Platelet Volume 9.9 fl (7.5-11.0); Neutrophil % 51.2 % (36.0-66.0); Platelet Count 201 K/mm3 (150-450); Red Blood Count 4.15 M/mm3 (4.1-5.4); White Blood Count 6.7 K/mm3 (4.0-10.5)
[2021-03-27 05:41] LABS: ALBUMIN 3.7 g/dL (3.5-5.0); ALKALINE PHOSPHATASE 68 U/L (38-126); ANION GAP 10.6 MEQ/L (5-15); BLOOD UREA NITROGEN 17 mg/dL (7-17); CHLORIDE 106 mmol/L (98-107); Calcium 8.8 mg/dL (8.4-10.2); Carbon Dioxide 24 mmol/L (22-30); Creatinine 1 0.56 mg/dL (0.52-1.04); EST GLOMERULAR FILTRATION RATE > 60.0 ML/MIN; Glucose 102 mg/dL (74-106); Potassium 3.5 mmol/L (3.5-5.1); SGOT/AST 24 U/L (14-36); SGPT/ALT 19 U/L (0-35); SODIUM 137 mmol/L (137-145); Total Protein 6.4 g/dL (6.3-8.2)
[2021-03-27] MEDS: Sodium Chloride 0.9% W/ 20 mEq KCl/LITER 1,000 ML IV SCH ×3 (06:42→22:49)
[2021-03-27] MEDS: Zofran 4 MG/2 ML VIAL IV PRN ×3 (06:42→22:49)
--- NOTE | 2021-03-27 08:51 | XRAY ---
Indication: Epigastric and periumbilical pain secondary to ileus. Multiple contiguous axial images obtained through the abdomen and pelvis without contrast. Comparison: March 20, 2021. Lung bases again demonstrates minimal dependent atelectasis less than before. No infiltrate or effusion. Heart is not enlarged. Stable small hiatal hernia. Again gastric bypass surgery. Noncontrasted stomach unremarkable. Again mild fluid distended small bowel loops up to 3.8 cm diameter with fluid leveling favoring small bowel obstruction. Transition point again identified midabdomen, site of anastomosis. There is distal colonic bowel gas which would suggest partial small bowel obstruction. New tiny pelvic free fluid. No walled off fluid collection or free air. Stable colonic diverticulosis without diverticulitis and previous hysterectomy. Gallbladder again contracted or surgically absent. Remaining liver, pancreas, spleen, adrenal glands, kidneys, ureters, and bladder are unremarkable for noncontrast exam. Stable moderate scattered aortoiliac calcification without AAA. Impression: 1. Again CT findings favor partial distal small bowel obstruction as detailed. New tiny pelvic free fluid may be related. 2. Stable incidental small hiatal hernia, gastric bypass surgery, and colonic diverticulosis. Comment: Preliminary interpretation made by [facility]. No critical discrepancy.
[2021-03-27] MEDS ORDERED: Ventolin Hfa MDI IH PRN (09:25)
[2021-03-27] MEDS ORDERED: ZOFRAN ODT 4 MG PO PRN (09:25)
[2021-03-27] MEDS ORDERED: VENTOLIN COMMON CANISTER IH PRN (09:28)
[2021-03-27] MEDS ORDERED: EPINEPHRINE 0.3 MG IM PRN (09:30)
[2021-03-27] MEDS: Toprol Xl 100 MG PO SCH (09:58)
[2021-03-27] MEDS: Protonix 40MG Tablet PO SCH (09:59)
[2021-03-27] MEDS ORDERED: Advair Hfa 230/21 Mcg COMMON CANISTER IH SCH (10:00)
[2021-03-27] MEDS ORDERED: NON-FORMULARY ITEM (Budesonide/Formoterol Fumarate [Symbicort 160-4.5 Mcg Inhaler] 2 PUFF) IH SCH (10:00)
[2021-03-27] MEDS ORDERED: PROTONIX 40 MG IV IV SCH (10:00)
--- NOTE | 2021-03-27 16:28 | XRAY ---
Indication: NG tube placement. Comparison: [employer] abdomen March 21, 2021. Limited KUB centered at lung bases/upper abdomen demonstrates NG tube coiled in stomach with tip right of midline. Visualized bowel gas pattern nonobstructed. Lung bases are clear. Osseous structures intact again with osteopenia and degenerative spondylosis.
[2021-03-28] MEDS: MORPHINE SULFATE 2 MG INJ IV PRN ×3 (06:11→17:39)
[2021-03-28] MEDS: Zofran 4 MG/2 ML VIAL IV PRN (06:11)
[2021-03-28] MEDS ORDERED: PHARMACY DOSING REQUEST MC ONE (07:43)
--- NOTE | 2021-03-28 08:00 | HP ---
CHIEF COMPLAINT: Vomiting, abdominal pain. HISTORY OF PRESENT ILLNESS: The patient is a 71 year-old white female with now her third admission to the hospital in the last two weeks for the same problem. The patient had previously what appeared to be a small bowel obstruction that appeared to be partial and she would at times have bowel movements and seem to be getting better last week when she was released home. She spent two days at home feeling pretty good at first but the more she ate the more distended and problematic she became. The patient presented back to the emergency room this time and a third CT scan now does show an obstruction of the small bowel. Surgical consultation was obtained previously who are familiar with the patient and we will get another consultation today to see if surgery now is warranted. The patient previously did have upper endoscopy in which a small ulcer was found. PAST MEDICAL/SURGICAL HISTORY: She has a history of having gastric bypass surgery and ulcer was in the end of the small bowel. The patient also has previous history of colon cancer and colon resection as well for this. She also previously had breast cancer. She has had bilateral knee replacements. She has had rheumatoid arthritis. She has had several colonoscopies in the past. She has hypertension, hyperlipidemia. HOME MEDICATIONS: The patient's home medication list currently includes Albuterol PRN, Symbicort inhaler. She has an EpiPen at home for her use should she need it. She takes Pepcid 20 mg twice a day, metoclopramide 10 mg with meals and this is fairly recent due to attempts to try to help clear her bowel. She is on metoprolol XL 100 mg daily, Zofran on PRN basis. She also is on oxycodone for back pain, pantoprazole 40 mg a day as well and sucralfate added recently at 1 gm p.o. a.c. and h.s. ALLERGIES: BEE VENOM. ADHESIVES. PHYSICAL EXAMINATION: The patient's vital signs in the emergency room showed her temperature 98.3F, pulse 66, respiratory rate 20 and blood pressure 147/61. O2 saturation 98%. HEENT: Normocephalic, atraumatic. Pupils equal round reactive to light. Extraocular movements intact. Oropharynx is slightly dry. NECK: Supple without lymphadenopathy, thyromegaly or JVD. CHEST: Clear to auscultation. HEART: Regular rate and rhythm without significant murmurs, rubs or gallops heard. ABDOMEN: Diffusely tender. No palpable masses are felt. EXTREMITIES: Without cyanosis, clubbing or edema. NEUROLOGIC: She is alert and oriented x3. No focal deficits are noted. LAB DATA AND TESTS: The patient's evaluations in the emergency room included CT scan of abdomen and pelvis which showed findings compatible with small bowel obstruction and transition point identified in the mid ileum in the right lower quadrant. Multiple GI surgeries were noted as well as previous cholecystectomy. The patient's laboratory studies otherwise revealed UA which was essentially normal. Her CBC was normal. Her metabolic panel essentially was normal with a glucose of 110, BUN slightly high at 21, creatinine 0.67. Liver enzymes and electrolytes were normal. ASSESSMENT: A patient with small bowel obstruction. We will consult surgery and the patient will be left NPO with IV fluid hydration. The only medication we will give her p.o. will be metoprolol at 100 mg with sips of water. She will have Zofran on a PRN basis and pantoprazole 40 mg IV as well as IV fluids.
[2021-03-28 08:03] LABS: Absolute Neutrophil Ct (ANC) 2.73 (1.4-6.9); BASOPHIL % 0.4 % (0.0-0.4); Basophil (Absolute #) 0.02 (0-0.4); Hematocrit 36.4 % (35-47); Hemoglobin 11.1 gm/dl (12.0-16.0); Lymphocyte (Absolute #) 1.54 (1.0-4.6); Lymphocytes % 31.4 % (24.0-44.0); Mean Cell Volume 94.3 fl (78-100); Mean Corpuscular Hemoglobin 28.8 pg (26-32); Mean Corpuscular Hgb Concent. 30.5 g/dl (32-36); Mean Platelet Volume 9.6 fl (7.5-11.0); Monocyte (Absolute #) 0.52 (0.0-1.3); Monocytes % 10.6 % (0.0-12.0); Neutrophil % 55.6 % (36.0-66.0); Platelet Count 194 K/mm3 (150-450); Red Blood Count 3.86 M/mm3 (4.1-5.4); Red Cell Distribution Width 15.8 % (11.5-14.0); White Blood Count 4.9 K/mm3 (4.0-10.5)
[2021-03-28 08:56] LABS: ALBUMIN 3.1 g/dL (3.5-5.0); ALKALINE PHOSPHATASE 58 U/L (38-126); ANION GAP 8.9 MEQ/L (5-15); BLOOD UREA NITROGEN 9 mg/dL (7-17); CHLORIDE 111 mmol/L (98-107); Carbon Dioxide 24 mmol/L (22-30); Creatinine 1 0.48 mg/dL (0.52-1.04); EST GLOMERULAR FILTRATION RATE > 60.0 ML/MIN; Glucose 91 mg/dL (74-106); Potassium 4.7 mmol/L (3.5-5.1); SGOT/AST 30 U/L (14-36); SGPT/ALT 19 U/L (0-35); SODIUM 139 mmol/L (137-145); Total Protein 5.6 g/dL (6.3-8.2)
[2021-03-28] MEDS: Protonix 40MG Tablet PO SCH (10:00)
[2021-03-28] MEDS: Toprol Xl 100 MG PO SCH (10:01)
--- NOTE | 2021-03-28 10:50 | CONS ---
CONSULT DATE: 03/27/2021 The patient is seen for Dr. Yuri Kellogg who is pediatric occupational therapist for our group today. HISTORY: A 71 year-old patient of Dr. Yuri Kellogg who apparently did a partial colectomy about eight months or so ago on the patient. She has been here second or third time in the past month. She was here last week and had epigastric pain, had small bowel follow through. Question whether she had partial obstruction. She had some bowel movements. She is mainly complaining of epigastric pain. She underwent upper endoscopy by Dr. Celso Kellogg and had a marginal ulcer at that time. Even though she was only home for two days, her record is not immediately available to review what Dr. Kellogg had to say when he rounded on her last . She went home on Saturday. PAST MEDICAL HISTORY: Obesity. Hypercholesterolemia. Hypertension. Chronic obstructive pulmonary disease. She has history of breast cancer, colon cancer in the past. Rheumatoid arthritis in the past. Diverticular disease. History of reflux PAST SURGICAL HISTORY: Breast cancer surgery in the past. She had partial colectomy for colon cancer by Dr. Kellogg about eight or nine months ago. She had bilateral knees replaced. She had bariatric surgery in the past. She had Chilo-en-Y. She had a port placed in the past. MEDICATIONS: She has been on EpiPen, Prozac, Lotensin, vitamin D3, Claritin, gabapentin, budesonide, Symbicort, calcium, vitamin B12, Pepcid, Simponi Aria, vitamin B1, Antivert, Klor-Con, Toprol, Ventolin HFA, Lasix, acetaminophen, oxycodone. ALLERGIES: BEE VENOM. BANDAIDS. FAMILY HISTORY: Negative in regards to this problem. SOCIAL HISTORY: No alcohol abuse. REVIEW OF SYSTEMS: Fourteen systems reviewed. She went home for two days and came back in with some epigastric pain, nausea and vomiting. LAB DATA AND TESTS: Liver function test is okay. White count is normal 6.7, hemoglobin 12.1. Her CT scan done last night showed some small bowel obstruction, transition point in the right lower quadrant, tiny nonobstructing renal stones. PHYSICAL EXAMINATION: GENERAL: Afebrile. Her blood pressure is 144/64, pulse 64, respirations 20. Pulse oximetry 96%. HEENT: Sclera nonicteric. NECK: No JVD. CHEST: Equal excursion, nonlabored breathing. CVS: Regular rate and rhythm. ABDOMEN: Tenderness epigastrium. EXTREMITIES: No edema. No cyanosis. NEURO: Alert, moving extremities grossly symmetrically. PSYCH: Appropriate mood and affect. IMPRESSION: A 71 year-old in with some distended bowel loops. She definitely does have marked ulcer that may account for some of her epigastric pain but she does have distended small bowel loops decompressed more distally. Question whether she has got a recurrent partial obstruction. She is nontoxic. No emergent surgery necessary at this moment. She needs NG decompression. I will have the office notify Dr. Kellogg who is working at [facility] currently today to see what his thoughts are, as he did a recent colon resection in the past eight or nine months, regarding consideration of exploration. Otherwise again she is nontoxic. No emergent surgery is necessary. Place NG to decompress the bowel, IV hydration and await Dr. Kellogg's plan. I will follow with you.
[2021-03-28] MEDS ORDERED: [UNRECOGNIZED DRUG - NUTRITION] IV SCH ×4 (14:00)
[2021-03-28] MEDS: Sodium Chloride 0.9% W/ 20 mEq KCl/LITER 1,000 ML IV SCH (17:37)
[2021-03-29] MEDS: MORPHINE SULFATE 2 MG INJ IV PRN ×3 (05:44→20:28)
[2021-03-29] MEDS: Zofran 4 MG/2 ML VIAL IV PRN (05:58)
[2021-03-29 06:00] LABS: Absolute Neutrophil Ct (ANC) 2.19 (1.4-6.9); BASOPHIL % 0.2 % (0.0-0.4); Basophil (Absolute #) 0.01 (0-0.4); Eosinophil % 2.8 % (0.00-5.0); Eosinophil (Absolute #) 0.13 (0-0.5); Hematocrit 39.3 % (35-47); Hemoglobin 12.3 gm/dl (12.0-16.0); Lymphocyte (Absolute #) 1.73 (1.0-4.6); Lymphocytes % 37.4 % (24.0-44.0); Mean Cell Volume 92.7 fl (78-100); Mean Corpuscular Hgb Concent. 31.3 g/dl (32-36); Mean Platelet Volume 10.5 fl (7.5-11.0); Monocyte (Absolute #) 0.56 (0.0-1.3); Monocytes % 12.1 % (0.0-12.0); Neutrophil % 47.5 % (36.0-66.0); Platelet Count 218 K/mm3 (150-450); Red Blood Count 4.24 M/mm3 (4.1-5.4); Red Cell Distribution Width 15.5 % (11.5-14.0); White Blood Count 4.6 K/mm3 (4.0-10.5)
[2021-03-29 06:14] LABS: ALBUMIN 3.6 g/dL (3.5-5.0); ALKALINE PHOSPHATASE 63 U/L (38-126); ANION GAP 9.6 MEQ/L (5-15); BLOOD UREA NITROGEN 10 mg/dL (7-17); CHLORIDE 105 mmol/L (98-107); Calcium 9.2 mg/dL (8.4-10.2); Carbon Dioxide 28 mmol/L (22-30); Creatinine 1 0.42 mg/dL (0.52-1.04); EST GLOMERULAR FILTRATION RATE > 60.0 ML/MIN; Glucose 121 mg/dL (74-106); Potassium 3.8 mmol/L (3.5-5.1); SGOT/AST 24 U/L (14-36); SGPT/ALT 19 U/L (0-35); SODIUM 139 mmol/L (137-145); Total Protein 6.4 g/dL (6.3-8.2)
[2021-03-29 07:23] LABS: ABO TYPING O; Antibody Screen NEGATIVE (NEGATIVE); RH TYPING POSITIVE
[2021-03-29] MEDS ORDERED: Lactated Ringers 1,000 ML IV SCH (08:30)
[2021-03-29] MEDS ORDERED: MEFOXIN 2 GM PREMIX** 2 GM/50 ML ML IV SCH (09:00)
[2021-03-29] MEDS ORDERED: Lactated Ringers 1,000 ML IV ONE (10:13)
[2021-03-29] MEDS: Toprol Xl 100 MG PO SCH (10:29)
[2021-03-29] MEDS: Protonix 40MG Tablet PO SCH (10:30)
[2021-03-29] MEDS ORDERED: Versed 2 MG/2 ML Injection ONE (15:46)
[2021-03-29] MEDS ORDERED: Zofran 4 MG/2 ML VIAL ONE (16:12)
[2021-03-29] MEDS ORDERED: TORAdol 30 mg Injection ONE (16:12)
[2021-03-29] MEDS ORDERED: SUBLIMAZE 100 MCG/2 ML ONE (16:12)
[2021-03-29] MEDS ORDERED: BRIDION 200MG/2ML IV ONE (16:12)
[2021-03-29] MEDS ORDERED: Xylocaine-Mpf 2% 5 Ml Vial ONE (16:12)
[2021-03-29] MEDS ORDERED: DIPRIVAN 200 MG/20 ML IV ONE (16:12)
[2021-03-29] MEDS ORDERED: Zemuron 100 MG/10 ML ONE (16:12)
[2021-03-29] MEDS ORDERED: Decadron 4 MG INJ ONE ×2 (16:12→18:13)
[2021-03-29] MEDS ORDERED: Astramorph-Pf 5 MG/10 ML ONE (16:19)
[2021-03-29] MEDS ORDERED: MORPHINE SULFATE 4 MG INJ IV PRN (17:28)
[2021-03-29] MEDS ORDERED: Naropin 0.5% 30 ML VIAL ONE (18:13)
[2021-03-29] MEDS ORDERED: EPINEPHRINE 1MG/ML AMP ONE (18:14)
[2021-03-29] MEDS ORDERED: Ephedrine Sulfate 50 MG/ML ONE (18:15)
[2021-03-29 19:25] LABS: Appearance SLIGHTLY CLOUDY (CLEAR); Bacteria FEW /HPF (NEGATIVE); Bilirubin NEGATIVE (NEGATIVE); Blood SMALL Ery/ul (0-5); Epithelial Cells RARE /HPF (FEW); Glucose NEGATIVE (NEGATIVE); Ketones NEGATIVE (NEGATIVE); Leukocyte Esterase NEGATIVE (NEGATIVE); Mucus MANY /HPF (NEGATIVE); Nitrite NEGATIVE (NEGATIVE); Protein,Urine Dip 30 (Negative); Specific Gravity 1.026 (1.005-1.025); Urobilinogen 2 mg/dL (0-1)
[2021-03-29] MEDS: [UNRECOGNIZED DRUG - NUTRITION] IV SCH ×4 (20:11)
[2021-03-29] MEDS ORDERED: Nubain 10 MG/ML IV PRN (20:14)
[2021-03-29] MEDS ORDERED: CLARITIN 10 MG PO PRN (20:14)
[2021-03-29] MEDS ORDERED: HOLD NARCOTIC ANALGESICS AND SEDATIVES X24 HR MC PRN (20:14)
[2021-03-29] MEDS ORDERED: PERCOCET TABLET 5/325MG PO PRN (20:14)
[2021-03-29] MEDS ORDERED: DEMEROL 50 MG IV PRN (20:14)
[2021-03-29] MEDS ORDERED: BENADRYL 50 MG/ML IV PRN (20:14)
[2021-03-29] MEDS ORDERED: Narcan 0.4 MG/ML IV PRN (20:14)
[2021-03-30] MEDS: MEFOXIN 2 GM PREMIX** 2 GM/50 ML ML IV SCH ×5 (00:33→23:24)
[2021-03-30] MEDS: MORPHINE SULFATE 2 MG INJ IV PRN ×4 (04:07→17:57)
[2021-03-30 05:17] LABS: ALBUMIN 3.7 g/dL (3.5-5.0); ALKALINE PHOSPHATASE 58 U/L (38-126); ANION GAP 10.7 MEQ/L (5-15); BLOOD UREA NITROGEN 15 mg/dL (7-17); CHLORIDE 100 mmol/L (98-107); Calcium 9.2 mg/dL (8.4-10.2); Carbon Dioxide 26 mmol/L (22-30); Creatinine 1 0.45 mg/dL (0.52-1.04); EST GLOMERULAR FILTRATION RATE > 60.0 ML/MIN; Glucose 223 mg/dL (74-106); MAGNESIUM 2.2 mg/dL (1.6-2.3); Potassium 4.1 mmol/L (3.5-5.1); SGOT/AST 32 U/L (14-36); SGPT/ALT 23 U/L (0-35); SODIUM 132 mmol/L (137-145); Total Protein 6.3 g/dL (6.3-8.2)
[2021-03-30] MEDS ORDERED: HUMALOG SQ PRN (08:15)
--- NOTE | 2021-03-30 08:34 | XRAY ---
Indication: NG tube placement. Comparison: August 15, 2020. Portable chest demonstrates new NG tube in esophagus with distal tube folded over and tip directed superiorly at the level of aortic arch. Remaining heart and lungs unremarkable again with left base calcified granuloma and left Port-A-Cath.
[2021-03-30] MEDS: Toprol Xl 100 MG PO SCH (10:12)
[2021-03-30] MEDS: PROTONIX 40 MG IV IV SCH (10:12)
--- NOTE | 2021-03-30 10:21 | OP ---
SURGERY DATE: 03/29/2021 SURGERY TIME: 172 PREOPERATIVE DIAGNOSIS: 1. PARTIAL SMALL BOWEL OBSTRUCTION. POSTOPERATIVE DIAGNOSIS: 1. PATIENT HAS CARCINOMATOSIS WITH ENUMEROUS AREAS OF SMALL BOWEL OBSTRUCTION AND INVOLVEMENT FROM TUMOR IMPLANTS. PROCEDURE: 1. Exploratory laparotomy. 2. Biopsy of multiple small bowel and mesentery nodules consistent with carcinomatosis. SURGEON: Yuri Kellogg M.D. STAFFING ANALYST: Rachael Cook NP. ANESTHESIA: General. COMPLICATIONS: None. CONDITION: Stable. INDICATION: The patient has been in and out with small bowel obstruction which was almost clear, but then came back. This is her 3rd time. Small bowel follow through suggested partial small bowel obstruction. She had had a previous gastric bypass long ago. She had a right hemicolectomy about a year ago. She is still fairly obese. She desires not to have this happen again. OPERATIVE PROCEDURE: She was taken to surgery. General anesthetic. Routine prep and drape. Midline incision based on the central area of the abdomen big enough that the hand could be entered. There were no adhesions against the anterior abdominal wall initially. Once this was totally developed, there was an adhesion of omentum in left upper quadrant. It was taken down. Direct visualization. It was obvious from entering the abdomen that implants were present. 6 or 8 career services representative implants were taken with samples in a shave-like fashion. Most of these were on the small bowel, but at least 2 of these were on the mesentery. There was a little bit of ascites. There was a wisp of free small bowel up by ligament of Treitz that had immediately became diseased and some of this disease was quite extensive alejandrina the small bowel and the mesentery some being basically like a light layer of glue all over. There was about a foot of almost semi-normal bowel in the mid abdomen, but then to the right of this what was left of the distal jejunum/ileum was totally matted with material. There was no place to bypass. There was nothing that was going to be helped by any type of bowel resection. No violations of the bowel occurred. The bowel laid back in organized fashion. Omentum brought down. Anterior abdomen wall closed with looped 0 PDS. Subcutaneous tissue irrigated. Skin closed with brii. Sterile dressing applied. Patient tolerated the procedure satisfactory. There was no family to discuss the findings. IMPRESSION: 1. THE PATIENT HAS CARCINOMATOSIS. We will review her records, refer her to oncology. There might be a chance at getting chemotherapy going in 3 weeks. There was no bowel anastomosis, but some abdominal wall incisional healing certainly needs to occur. OF ADDITIONAL INTEREST: The uterus was visible. The left ovary was small, postmenopausal, and normal. The right ovary was small, postmenopausal, and normal. I believe this is most likely colon although it could be from another site.
[2021-03-30] MEDS: [UNRECOGNIZED DRUG - NUTRITION] IV SCH ×4 (18:25)
[2021-03-30] MEDS ORDERED: MORPHINE SULFATE 4 MG INJ ONE (20:26)
[2021-03-31] MEDS: MORPHINE SULFATE 2 MG INJ IV PRN ×3 (00:02→07:49)
[2021-03-31 05:49] LABS: Absolute Neutrophil Ct (ANC) 7.86 (1.4-6.9); BASOPHIL % 0.2 % (0.0-0.4); Basophil (Absolute #) 0.02 (0-0.4); Eosinophil % 0.3 % (0.00-5.0); Eosinophil (Absolute #) 0.03 (0-0.5); Hematocrit 39.9 % (35-47); Hemoglobin 12.7 gm/dl (12.0-16.0); Lymphocyte (Absolute #) 2.54 (1.0-4.6); Lymphocytes % 21.7 % (24.0-44.0); Mean Cell Volume 92.4 fl (78-100); Mean Corpuscular Hemoglobin 29.4 pg (26-32); Mean Corpuscular Hgb Concent. 31.8 g/dl (32-36); Mean Platelet Volume 10.7 fl (7.5-11.0); Monocyte (Absolute #) 1.27 (0.0-1.3); Monocytes % 10.8 % (0.0-12.0); Platelet Count 244 K/mm3 (150-450); Red Blood Count 4.32 M/mm3 (4.1-5.4); Red Cell Distribution Width 15.9 % (11.5-14.0); White Blood Count 11.7 K/mm3 (4.0-10.5)
[2021-03-31 07:48] LABS: ALBUMIN 3.6 g/dL (3.5-5.0); ALKALINE PHOSPHATASE 53 U/L (38-126); ANION GAP 14.2 MEQ/L (5-15); BLOOD UREA NITROGEN 18 mg/dL (7-17); CHLORIDE 103 mmol/L (98-107); Carbon Dioxide 24 mmol/L (22-30); Creatinine 1 0.48 mg/dL (0.52-1.04); EST GLOMERULAR FILTRATION RATE > 60.0 ML/MIN; Glucose 181 mg/dL (74-106); MAGNESIUM 2.6 mg/dL (1.6-2.3); Potassium 4.8 mmol/L (3.5-5.1); SGOT/AST 32 U/L (14-36); SGPT/ALT 19 U/L (0-35); SODIUM 136 mmol/L (137-145); Total Protein 6.7 g/dL (6.3-8.2)
[2021-03-31 09:46] LABS: ALBUMIN 3.5 g/dL (3.5-5.0); ALKALINE PHOSPHATASE 60 U/L (38-126); ANION GAP 12.7 MEQ/L (5-15); BLOOD UREA NITROGEN 18 mg/dL (7-17); CHLORIDE 103 mmol/L (98-107); Calcium 9.2 mg/dL (8.4-10.2); Carbon Dioxide 26 mmol/L (22-30); Creatinine 1 0.49 mg/dL (0.52-1.04); EST GLOMERULAR FILTRATION RATE > 60.0 ML/MIN; Glucose 188 mg/dL (74-106); Potassium 4.9 mmol/L (3.5-5.1); SGOT/AST 23 U/L (14-36); SGPT/ALT 19 U/L (0-35); SODIUM 137 mmol/L (137-145); Total Protein 6.2 g/dL (6.3-8.2)
[2021-03-31] MEDS: Duragesic 25MCG Patch TD SCH (10:06)
[2021-03-31] MEDS: PROTONIX 40 MG IV IV SCH (10:17)
[2021-03-31] MEDS: Toprol Xl 100 MG PO SCH (10:19)
[2021-03-31] MEDS: Carafate SUSPENSION 1000 MG/10 ML PO SCH ×3 (11:34→21:11)
[2021-03-31] MEDS: MORPHINE SULFATE 4 MG INJ IV PRN ×3 (11:34→21:12)
[2021-03-31] MEDS: KABIVEN - CENT TPN 2053 ML 2,053 ML with Vitamins For Infusion 10 ML INJECTION*** 10 ML... IV SCH ×3 (16:23)
[2021-04-01] MEDS: MORPHINE SULFATE 4 MG INJ IV PRN ×4 (01:08→15:03)
[2021-04-01 06:11] LABS: ALBUMIN 3.6 g/dL (3.5-5.0); ALKALINE PHOSPHATASE 66 U/L (38-126); ANION GAP 12.6 MEQ/L (5-15); BLOOD UREA NITROGEN 19 mg/dL (7-17); CHLORIDE 102 mmol/L (98-107); Calcium 9.1 mg/dL (8.4-10.2); Carbon Dioxide 26 mmol/L (22-30); Creatinine 1 0.51 mg/dL (0.52-1.04); EST GLOMERULAR FILTRATION RATE > 60.0 ML/MIN; Glucose 95 mg/dL (74-106); MAGNESIUM 2.3 mg/dL (1.6-2.3); Potassium 4.1 mmol/L (3.5-5.1); SGOT/AST 22 U/L (14-36); SGPT/ALT 18 U/L (0-35); SODIUM 137 mmol/L (137-145); Total Protein 6.5 g/dL (6.3-8.2)
[2021-04-01 06:31] LABS: Absolute Neutrophil Ct (ANC) 4.07 (1.4-6.9); BASOPHIL % 0.2 % (0.0-0.4); Basophil (Absolute #) 0.02 (0-0.4); Eosinophil % 3.3 % (0.00-5.0); Eosinophil (Absolute #) 0.28 (0-0.5); Hematocrit 39.9 % (35-47); Hemoglobin 12.5 gm/dl (12.0-16.0); Lymphocytes % 37.2 % (24.0-44.0); Mean Cell Volume 92.6 fl (78-100); Mean Corpuscular Hgb Concent. 31.3 g/dl (32-36); Mean Platelet Volume 10.6 fl (7.5-11.0); Monocyte (Absolute #) 1.03 (0.0-1.3); Neutrophil % 47.3 % (36.0-66.0); Platelet Count 237 K/mm3 (150-450); Red Blood Count 4.31 M/mm3 (4.1-5.4); Red Cell Distribution Width 16.3 % (11.5-14.0); White Blood Count 8.6 K/mm3 (4.0-10.5)
[2021-04-01] MEDS: Toprol Xl 100 MG PO SCH (09:47)
[2021-04-01] MEDS: PROTONIX 40 MG IV IV SCH (09:49)
[2021-04-01] MEDS: Carafate SUSPENSION 1000 MG/10 ML PO SCH ×4 (09:50→22:35)
[2021-04-01] MEDS: KABIVEN - CENT TPN 2053 ML 2,053 ML with Vitamins For Infusion 10 ML INJECTION*** 10 ML... IV SCH ×3 (13:28)
[2021-04-01] MEDS: MORPHINE SULFATE 4 MG INJ IV SCH ×3 (18:05→23:58)
[2021-04-02] MEDS: MORPHINE SULFATE 4 MG INJ IV SCH ×8 (03:43→23:56)
[2021-04-02 06:57] LABS: ALBUMIN 3.7 g/dL (3.5-5.0); ALKALINE PHOSPHATASE 73 U/L (38-126); ANION GAP 11.8 MEQ/L (5-15); BLOOD UREA NITROGEN 20 mg/dL (7-17); CHLORIDE 100 mmol/L (98-107); Calcium 9.3 mg/dL (8.4-10.2); Carbon Dioxide 27 mmol/L (22-30); Creatinine 1 0.53 mg/dL (0.52-1.04); EST GLOMERULAR FILTRATION RATE > 60.0 ML/MIN; Glucose 99 mg/dL (74-106); MAGNESIUM 2.3 mg/dL (1.6-2.3); Potassium 4.3 mmol/L (3.5-5.1); SGOT/AST 27 U/L (14-36); SGPT/ALT 21 U/L (0-35); SODIUM 135 mmol/L (137-145); Total Protein 6.7 g/dL (6.3-8.2)
[2021-04-02] MEDS: Carafate SUSPENSION 1000 MG/10 ML PO SCH ×4 (07:42→22:09)
[2021-04-02] MEDS: Toprol Xl 100 MG PO SCH (09:00)
[2021-04-02] MEDS: PROTONIX 40 MG IV IV SCH (09:00)
[2021-04-02] MEDS: KABIVEN - CENT TPN 2053 ML 2,053 ML with Vitamins For Infusion 10 ML INJECTION*** 10 ML... IV SCH ×3 (12:07)
--- NOTE | 2021-04-02 13:31 | PCM.NOTE ---
Date and Time: 04/01/21 1300 Subjective Assessment: Patient is having abdominal pain states at the incision. It has been 5 hours since her last dose of Morphine 4 mg.She is on TPN and will need to go home on TPN. Not able to have any nutritional intake po,using ice chips to moisten mouth. Surgeon states cancer has blocked the bowel and surgery is not possible due to the extensive cancer growth. Patient wants to return home.[facility] will supply her TPN. Home Health also being arranged. Objective Exam General Appearance: moderate distress (abd pain has escalated,is overdue for pain meds) Neurologic Exam: alert, oriented x 3, cooperative, other (frustrated mood) Skin Exam: normal color, dry, No warm Respiratory Exam: normal breath sounds Cardiovascular Exam: regular rate/rhythm Gastrointestinal/Abdomen Exam: tenderness (left mid low abd 2+/4- has a binder on), distention Extremity Exam: normal inspection OBJECTIVE DATA Vital Signs: Vital Signs - 24 hr Temp Pulse Resp BP Pulse Ox 04/02/21 12:00 97.7 F 68 19 129/58 92 L 04/02/21 08:00 97.7 F 66 18 106/53 92 L 04/02/21 03:57 97.8 F 70 18 117/56 94 L 04/02/21 00:03 97.6 F 68 18 110/55 94 L 04/01/21 20:13 97.8 F 71 20 117/58 95 04/01/21 17:00 97.1 F 74 18 140/63 94 L 04/01/21 13:35 69 137/59 Pain Assessment - Last Documented Pain Intensity [Abdomen] 2 Pain Intensity 4 Pain Scale Used 0-10 Pain Scale Intake and Output: Intake & Output 03/31/21 04/01/21 04/02/21 04/03/21 11:59 11:59 11:59 11:59 Intake Total 8108 1574 2398 Output Total 5761 2905 2375 Balance -422 -151 23 Weight 103.3 kg 103.3 kg Lab Results: Lab Results-Last 24 Hours 04/01/21 04/02/21 04/02/21 Range/Units 17:15 00:01 06:25 Sodium 135 L (137-145) mmol/L Potassium 4.3 (3.5-5.1) mmol/L Chloride 100 (98-107) mmol/L Carbon Dioxide 27 (22-30) mmol/L Anion Gap 11.8 (5-15) MEQ/L BUN 20 H (7-17) mg/dL Creatinine 0.53 (0.52-1.04) mg/dL Estimated GFR > 60.0 ML/MIN Glucose 99 (74-106) mg/dL POC Glucometer 123 H 123 H (74 to 106) mg/dL Calcium 9.3 (8.4-10.2) mg/dL Magnesium 2.3 (1.6-2.3) mg/dL Total Bilirubin 0.30 (0.2-1.3) mg/dL AST 27 (14-36) U/L ALT 21 (0-35) U/L Alkaline Phosphatase 73 (38-126) U/L Serum Total Protein 6.7 (6.3-8.2) g/dL Albumin 3.7 (3.5-5.0) g/dL 04/02/21 04/02/21 04/02/21 Range/Units 06:27 12:04 12:10 Sodium (137-145) mmol/L Potassium (3.5-5.1) mmol/L Chloride (98-107) mmol/L Carbon Dioxide (22-30) mmol/L Anion Gap (5-15) MEQ/L BUN (7-17) mg/dL Creatinine (0.52-1.04) mg/dL Estimated GFR ML/MIN Glucose (74-106) mg/dL POC Glucometer 93 37 L* 101 (74 to 106) mg/dL Calcium (8.4-10.2) mg/dL Magnesium (1.6-2.3) mg/dL Total Bilirubin (0.2-1.3) mg/dL AST (14-36) U/L ALT (0-35) U/L Alkaline Phosphatase (38-126) U/L Serum Total Protein (6.3-8.2) g/dL Albumin (3.5-5.0) g/dL Assessment/Plan (1) Carcinomatosis Current Visit: Yes Status: Acute Code(s): C80.0 - DISSEMINATED MALIGNANT NEOPLASM, UNSPECIFIED (2) Complete small bowel obstruction Current Visit: Yes Status: Acute Assessment & Plan: dependent on TPN for all nutrition Code(s): K56.601 - COMPLETE INTESTINAL OBSTRUCTION, UNSPECIFIED TO CAUSE (3) Abdominal pain Current Visit: No Status: Acute Qualifiers: Abdominal location: unspecified location Qualified Code(s): R10.9 - Unspecified abdominal pain Assessment & Plan: Morphine to be given 4mg q 3 hours scheduled to stay ahead of the pain. Code(s): R10.9 - UNSPECIFIED ABDOMINAL PAIN
--- NOTE | 2021-04-02 13:32 | PCM.NOTE ---
Date and Time: 04/02/21 1331 Subjective Assessment: Patient states pain control is good since offered dose of Morphine q 3 hours. OBJECTIVE DATA Vital Signs: Vital Signs - 24 hr Temp Pulse Resp BP Pulse Ox 04/02/21 12:00 97.7 F 68 19 129/58 92 L 04/02/21 08:00 97.7 F 66 18 106/53 92 L 04/02/21 03:57 97.8 F 70 18 117/56 94 L 04/02/21 00:03 97.6 F 68 18 110/55 94 L 04/01/21 20:13 97.8 F 71 20 117/58 95 04/01/21 17:00 97.1 F 74 18 140/63 94 L 04/01/21 13:35 69 137/59 Pain Assessment - Last Documented Pain Intensity [Abdomen] 2 Pain Intensity 4 Pain Scale Used 0-10 Pain Scale Intake and Output: Intake & Output 03/31/21 04/01/21 04/02/21 04/03/21 11:59 11:59 11:59 11:59 Intake Total 2426 4014 2398 Output Total 1758 4049 237 Balance -422 -151 23 Weight 103.3 kg 103.3 kg Lab Results: Lab Results-Last 24 Hours 04/01/21 04/02/21 04/02/21 Range/Units 17:15 00:01 06:25 Sodium 135 L (137-145) mmol/L Potassium 4.3 (3.5-5.1) mmol/L Chloride 100 (98-107) mmol/L Carbon Dioxide 27 (22-30) mmol/L Anion Gap 11.8 (5-15) MEQ/L BUN 20 H (7-17) mg/dL Creatinine 0.53 (0.52-1.04) mg/dL Estimated GFR > 60.0 ML/MIN Glucose 99 (74-106) mg/dL POC Glucometer 123 H 123 H (74 to 106) mg/dL Calcium 9.3 (8.4-10.2) mg/dL Magnesium 2.3 (1.6-2.3) mg/dL Total Bilirubin 0.30 (0.2-1.3) mg/dL AST 27 (14-36) U/L ALT 21 (0-35) U/L Alkaline Phosphatase 73 (38-126) U/L Serum Total Protein 6.7 (6.3-8.2) g/dL Albumin 3.7 (3.5-5.0) g/dL 04/02/21 04/02/21 04/02/21 Range/Units 06:27 12:04 12:10 Sodium (137-145) mmol/L Potassium (3.5-5.1) mmol/L Chloride (98-107) mmol/L Carbon Dioxide (22-30) mmol/L Anion Gap (5-15) MEQ/L BUN (7-17) mg/dL Creatinine (0.52-1.04) mg/dL Estimated GFR ML/MIN Glucose (74-106) mg/dL POC Glucometer 93 37 L* 101 (74 to 106) mg/dL Calcium (8.4-10.2) mg/dL Magnesium (1.6-2.3) mg/dL Total Bilirubin (0.2-1.3) mg/dL AST (14-36) U/L ALT (0-35) U/L Alkaline Phosphatase (38-126) U/L Serum Total Protein (6.3-8.2) g/dL Albumin (3.5-5.0) g/dL
[2021-04-03] MEDS: MORPHINE SULFATE 4 MG INJ IV SCH ×7 (03:23→21:01)
[2021-04-03 06:32] LABS: Absolute Neutrophil Ct (ANC) 4.58 (1.4-6.9); BASOPHIL % 0.5 % (0.0-0.4); Basophil (Absolute #) 0.04 (0-0.4); Eosinophil % 5.8 % (0.00-5.0); Eosinophil (Absolute #) 0.47 (0-0.5); Hematocrit 39.9 % (35-47); Hemoglobin 12.6 gm/dl (12.0-16.0); Lymphocyte (Absolute #) 2.16 (1.0-4.6); Lymphocytes % 26.8 % (24.0-44.0); Mean Cell Volume 92.8 fl (78-100); Mean Corpuscular Hemoglobin 29.3 pg (26-32); Mean Corpuscular Hgb Concent. 31.6 g/dl (32-36); Mean Platelet Volume 9.9 fl (7.5-11.0); Monocyte (Absolute #) 0.81 (0.0-1.3); Neutrophil % 56.9 % (36.0-66.0); Platelet Count 229 K/mm3 (150-450); Red Cell Distribution Width 15.3 % (11.5-14.0); White Blood Count 8.1 K/mm3 (4.0-10.5)
[2021-04-03 06:49] LABS: ALBUMIN 3.5 g/dL (3.5-5.0); ALKALINE PHOSPHATASE 75 U/L (38-126); ANION GAP 12.8 MEQ/L (5-15); BLOOD UREA NITROGEN 22 mg/dL (7-17); CHLORIDE 100 mmol/L (98-107); Calcium 9.1 mg/dL (8.4-10.2); Carbon Dioxide 25 mmol/L (22-30); Creatinine 1 0.52 mg/dL (0.52-1.04); EST GLOMERULAR FILTRATION RATE > 60.0 ML/MIN; Glucose 111 mg/dL (74-106); MAGNESIUM 2.2 mg/dL (1.6-2.3); Potassium 4.2 mmol/L (3.5-5.1); SGOT/AST 47 U/L (14-36); SGPT/ALT 36 U/L (0-35); SODIUM 134 mmol/L (137-145); Total Protein 6.6 g/dL (6.3-8.2)
[2021-04-03] MEDS: Carafate SUSPENSION 1000 MG/10 ML PO SCH ×4 (08:53→21:33)
[2021-04-03] MEDS: PROTONIX 40 MG IV IV SCH (08:54)
[2021-04-03] MEDS: Duragesic 25MCG Patch TD SCH (09:00)
[2021-04-03] MEDS: KABIVEN - CENT TPN 2053 ML 2,053 ML with Vitamins For Infusion 10 ML INJECTION*** 10 ML... IV SCH ×3 (10:42)
[2021-04-03] MEDS: Toprol Xl 100 MG PO SCH (10:50)
--- NOTE | 2021-04-03 13:55 | PROG NOTE ---
DATE: 04/01/2021 HISTORY: Madison Hall is doing fairly well. She is alert and oriented. Her catheter is clear. She does not tolerate p.o. She is on hyperalimentation. She is going to see Dr. Rivera on . She has carcinomatosis. The pathology is not back yet.
--- NOTE | 2021-04-03 15:25 | PROG NOTE ---
DATE: 04/02/2021 HISTORY: Miss Hall is in room 212. She is doing well. She cannot eat. She had sips of clear liquid. She is on hyperalimentation. Her incision is stable. Her Dickens is clear. PLAN: Her disposition occurring this week.
[2021-04-04] MEDS: MORPHINE SULFATE 4 MG INJ IV SCH ×9 (00:02→23:59)
[2021-04-04 07:11] LABS: ALBUMIN 3.7 g/dL (3.5-5.0); ALKALINE PHOSPHATASE 87 U/L (38-126); ANION GAP 12.1 MEQ/L (5-15); BLOOD UREA NITROGEN 21 mg/dL (7-17); CHLORIDE 101 mmol/L (98-107); Calcium 9.4 mg/dL (8.4-10.2); Carbon Dioxide 27 mmol/L (22-30); Creatinine 1 0.53 mg/dL (0.52-1.04); EST GLOMERULAR FILTRATION RATE > 60.0 ML/MIN; Glucose 102 mg/dL (74-106); MAGNESIUM 2.3 mg/dL (1.6-2.3); Potassium 4.2 mmol/L (3.5-5.1); SGOT/AST 40 U/L (14-36); SGPT/ALT 43 U/L (0-35); SODIUM 135 mmol/L (137-145); Total Protein 6.9 g/dL (6.3-8.2)
[2021-04-04] MEDS: Carafate SUSPENSION 1000 MG/10 ML PO SCH ×4 (07:48→21:01)
--- NOTE | 2021-04-04 08:36 | PCM.NOTE ---
Date and Time: 04/04/21830 Subjective Assessment: Pt's pain is controlled by q3h morphine, 4mg IV. Her pain is on the L side of abd, 3/10 right now, but sometimes it's better. She is unable to tolerate any po. - Review of Systems Constitutional: No Fever Abdominal/Gastrointestinal: Abdominal Pain Objective Exam General Appearance: no apparent distress, alert Neurologic Exam: oriented x 3, cooperative Skin Exam: warm, dry, No rash Ears, Nose, Throat Exam: moist mucous membranes Neck Exam: normal inspection Respiratory Exam: normal breath sounds, lungs clear, No crackles/rales, No rhonchi, No wheezing Cardiovascular Exam: regular rate/rhythm, normal heart sounds, No murmur Gastrointestinal/Abdomen Exam: soft, tenderness (L sided abdomen), guarding, other (surgical dressing midline is clean/dry/intact), No normal bowel sounds (hypoactive but present), No distention, No mass, No rebound Extremity Exam: normal inspection, No pedal edema, No swelling OBJECTIVE DATA Vital Signs: Vital Signs - 24 hr Temp Pulse Resp BP Pulse Ox 04/04/21 08:00 96.9 F 65 18 122/56 94 L 04/04/21 04:00 97.5 F 68 16 167/77 94 L 04/04/21 00:00 97.1 F 69 16 126/59 94 L 04/03/21 20:49 98.2 F 74 16 133/63 94 L 04/03/21 16:00 98.1 F 78 16 157/64 97 04/03/21 12:00 97.9 F 76 16 103/75 96 Pain Assessment - Last Documented Pain Intensity [Abdomen] 2 Pain Intensity 6 Pain Scale Used 0-10 Pain Scale Intake and Output: Intake & Output 04/01/21 04/02/21 04/03/21 04/04/21 11:59 11:59 11:59 11:59 Intake Total 3764 2398 2372 1720 Output Total 2675 2375 1750 1900 Balance -151 23 622 -180 Weight 103.3 kg 102 kg 102 kg 102.5 kg Lab Results: Lab Results-Last 24 Hours 04/03/21 04/03/21 04/04/21 Range/Units 12:10 17:43 00:00 Sodium (137-145) mmol/L Potassium (3.5-5.1) mmol/L Chloride (98-107) mmol/L Carbon Dioxide (22-30) mmol/L Anion Gap (5-15) MEQ/L BUN (7-17) mg/dL Creatinine (0.52-1.04) mg/dL Estimated GFR ML/MIN Glucose (74-106) mg/dL POC Glucometer 139 H 111 H 140 H (74 to 106) mg/dL Calcium (8.4-10.2) mg/dL Magnesium (1.6-2.3) mg/dL Total Bilirubin (0.2-1.3) mg/dL AST (14-36) U/L ALT (0-35) U/L Alkaline Phosphatase (38-126) U/L Serum Total Protein (6.3-8.2) g/dL Albumin (3.5-5.0) g/dL 04/04/21 04/04/21 04/04/21 Range/Units 04:00 06:00 06:03 Sodium 135 L (137-145) mmol/L Potassium 4.2 (3.5-5.1) mmol/L Chloride 101 (98-107) mmol/L Carbon Dioxide 27 (22-30) mmol/L Anion Gap 12.1 (5-15) MEQ/L BUN 21 H (7-17) mg/dL Creatinine 0.53 (0.52-1.04) mg/dL Estimated GFR > 60.0 ML/MIN Glucose 102 (74-106) mg/dL POC Glucometer TNP 102 (74 to 106) mg/dL Calcium 9.4 (8.4-10.2) mg/dL Magnesium 2.3 (1.6-2.3) mg/dL Total Bilirubin 0.50 (0.2-1.3) mg/dL AST 40 H (14-36) U/L ALT 43 H (0-35) U/L Alkaline Phosphatase 87 (38-126) U/L Serum Total Protein 6.9 (6.3-8.2) g/dL Albumin 3.7 (3.5-5.0) g/dL Multi-Disciplinary Progress Notes: Multi-Disciplinary Progress Notes 04/03/21 14:25 Nutrition Note by Stephanie Barbosa F/u Note: Note Pt remains NPO; TPN con't @ 80mls/hour providing 1745 kcals. No note found as to why rate was decreased from 100 ml/hr to 80 mls/hr. Note adm weight 104.8kg; 04/02 weight 102kg. Labs 04/03= Na 134, BUN 22, glu 111, alb wnl. No PES at this time. Pt to be d/c'd possible with hospice per other RD. Will monitor, f/u prn. CelestinaRuss MSRDLD Initialized on 04/03/21 14:25 - END OF NOTE 04/03/21 10:50 Case Management Note by Santa Montanez S/W PATIENT- SHE IS AGREEABLE TO TPN. DR. PHILLIPS WROTE ORDER OVER THE WEEKEND FOR REIMBURSEMENT SPECIALIST TPN. ORDER ENTERED FOR PHARMACY TO DOSE TPN FOR OUTPT. ORDER THEN SENT WITH CLINICALS TO [facility] AT [facility] ([place]). THEY WILL CHECK ON MEDICAL NECESSITY ANY GET BACK WITH US THIS COULD TAKE UP TO 72 HRS BUT WILL TRY TO MEI THIS PATIENT'S D/T HER APT. ON SATURDAY. Initialized on 04/03/21 10:50 - END OF NOTE 04/03/21 10:22 Physical Therapy Note by Yvonne Brice PT. REFUSED P.T. EVAL THIS DATE D/T C/O ABD PN. STATES SHE DOESN'T HAVE CONCERNS RE: ABILITY TO MOVE ON HER OWN WHEN SHE GOES HOME. WILL ATTEMPT THIS AFTERNOON. Initialized on 04/03/21 10:22 - END OF NOTE Assessment/Plan (1) Small bowel obstruction Current Visit: Yes Status: Acute Assessment & Plan: Appears to be complete; cannot tolerate any po. Plan is to send pt home on TPN with hospice. Code(s): K56.609 - UNSP INTESTNL OBST, UNSP TO PARTIAL VERSUS COMPLETE OBST (2) Abdominal pain Current Visit: No Status: Acute Qualifiers: Abdominal location: unspecified location Qualified Code(s): R10.9 - Unspecified abdominal pain Assessment & Plan: L sided. Code(s): R10.9 - UNSPECIFIED ABDOMINAL PAIN (3) Colon cancer Current Visit: No Status: Chronic Qualifiers: Colon location: overlapping sites Qualified Code(s): C18.8 - Malignant neoplasm of overlapping sites of colon Assessment & Plan: Diffuse and inoperable.
[2021-04-04] MEDS: PROTONIX 40 MG IV IV SCH (09:00)
[2021-04-04] MEDS: Toprol Xl 100 MG PO SCH (09:00)
--- NOTE | 2021-04-04 09:28 | PCM.NOTE ---
Date and Time: 04/03/21 1300 Subjective Assessment: Patient states abd pain control is better since q 3hr Morphine. Is anxious to go home. Has been up to bathroom and in chair a little. Feels best when laying in bed. Objective Exam General Appearance: no apparent distress Neurologic Exam: alert, oriented x 3, cooperative Skin Exam: normal color, warm, dry Respiratory Exam: normal breath sounds Cardiovascular Exam: regular rate/rhythm Gastrointestinal/Abdomen Exam: tenderness (left sided -has binder on) Extremity Exam: other (no tenderness or pitting edema) OBJECTIVE DATA Vital Signs: Vital Signs - 24 hr Temp Pulse Resp BP Pulse Ox 04/04/21 08:00 96.9 F 65 18 122/56 94 L 04/04/21 04:00 97.5 F 68 16 167/77 94 L 04/04/21 00:00 97.1 F 69 16 126/59 94 L 04/03/21 20:49 98.2 F 74 16 133/63 94 L 04/03/21 16:00 98.1 F 78 16 157/64 97 04/03/21 12:00 97.9 F 76 16 103/75 96 Pain Assessment - Last Documented Pain Intensity [Abdomen] 2 Pain Intensity 7 Pain Scale Used 0-10 Pain Scale Intake and Output: Intake & Output 04/01/21 04/02/21 04/03/21 04/04/21 11:59 11:59 11:59 11:59 Intake Total 2524 2398 2372 1720 Output Total 2675 2375 1750 1900 Balance -151 23 622 -180 Weight 103.3 kg 102 kg 102 kg 102.5 kg Lab Results: Lab Results-Last 24 Hours 04/03/21 04/03/21 04/04/21 Range/Units 12:10 17:43 00:00 Sodium (137-145) mmol/L Potassium (3.5-5.1) mmol/L Chloride (98-107) mmol/L Carbon Dioxide (22-30) mmol/L Anion Gap (5-15) MEQ/L BUN (7-17) mg/dL Creatinine (0.52-1.04) mg/dL Estimated GFR ML/MIN Glucose (74-106) mg/dL POC Glucometer 139 H 111 H 140 H (74 to 106) mg/dL Calcium (8.4-10.2) mg/dL Magnesium (1.6-2.3) mg/dL Total Bilirubin (0.2-1.3) mg/dL AST (14-36) U/L ALT (0-35) U/L Alkaline Phosphatase (38-126) U/L Serum Total Protein (6.3-8.2) g/dL Albumin (3.5-5.0) g/dL 04/04/21 04/04/21 04/04/21 Range/Units 04:00 06:00 06:03 Sodium 135 L (137-145) mmol/L Potassium 4.2 (3.5-5.1) mmol/L Chloride 101 (98-107) mmol/L Carbon Dioxide 27 (22-30) mmol/L Anion Gap 12.1 (5-15) MEQ/L BUN 21 H (7-17) mg/dL Creatinine 0.53 (0.52-1.04) mg/dL Estimated GFR > 60.0 ML/MIN Glucose 102 (74-106) mg/dL POC Glucometer TNP 102 (74 to 106) mg/dL Calcium 9.4 (8.4-10.2) mg/dL Magnesium 2.3 (1.6-2.3) mg/dL Total Bilirubin 0.50 (0.2-1.3) mg/dL AST 40 H (14-36) U/L ALT 43 H (0-35) U/L Alkaline Phosphatase 87 (38-126) U/L Serum Total Protein 6.9 (6.3-8.2) g/dL Albumin 3.7 (3.5-5.0) g/dL Multi-Disciplinary Progress Notes: Multi-Disciplinary Progress Notes 04/04/21 09:21 Case Management Note by Santa Montanez UPDATED CLINICAL FAXED TO [facility] FOR TPN AT THIS TIME Initialized on 04/04/21 09:21 - END OF NOTE 04/03/21 14:25 Nutrition Note by Stephanie Barbosa F/u Note: Note Pt remains NPO; TPN con't @ 80mls/hour providing 1745 kcals. No note found as to why rate was decreased from 100 ml/hr to 80 mls/hr. Note adm weight 104.8kg; 04/02 weight 102kg. Labs 04/03= Na 134, BUN 22, glu 111, alb wnl. No PES at this time. Pt to be d/c'd possible with hospice per other RD. Will monitor, f/u prn. CelestinaRuss MSRDLD Initialized on 04/03/21 14:25 - END OF NOTE 04/03/21 10:50 Case Management Note by Santa Montanez S/W PATIENT- SHE IS AGREEABLE TO TPN. DR. PHILLIPS WROTE ORDER OVER THE WEEKEND FOR SOFTWARE QUALITY ASSURANCE ANALYST TPN. ORDER ENTERED FOR PHARMACY TO DOSE TPN FOR OUTPT. ORDER THEN SENT WITH CLINICALS TO [facility] AT [facility]). THEY WILL CHECK ON MEDICAL NECESSITY ANY GET BACK WITH US THIS COULD TAKE UP TO 72 HRS BUT WILL TRY TO MEI THIS PATIENT'S D/T HER APT. ON SATURDAY. Initialized on 04/03/21 10:50 - END OF NOTE 04/03/21 10:22 Physical Therapy Note by Yvonne Brice PT. REFUSED P.T. EVAL THIS DATE D/T C/O ABD PN. STATES SHE DOESN'T HAVE CONCERNS RE: ABILITY TO MOVE ON HER OWN WHEN SHE GOES HOME. WILL ATTEMPT THIS AFTERNOON. Initialized on 04/03/21 10:22 - END OF NOTE Assessment/Plan (1) Carcinomatosis Current Visit: Yes Status: Acute Code(s): C80.0 - DISSEMINATED MALIGNANT NEOPLASM, UNSPECIFIED (2) Complete small bowel obstruction Current Visit: Yes Status: Acute Code(s): K56.601 - COMPLETE INTESTINAL OBSTRUCTION, UNSPECIFIED TO CAUSE (3) Abdominal pain Current Visit: No Status: Acute Qualifiers: Abdominal location: unspecified location Qualified Code(s): R10.9 - Unspecified abdominal pain Code(s): R10.9 - UNSPECIFIED ABDOMINAL PAIN
[2021-04-04] MEDS ORDERED: KABIVEN - CENT TPN 2053 ML 2,053 ML with Vitamins For Infusion 10 ML INJECTION*** 10 ML... IV SCH ×6 (11:00→14:00)
[2021-04-05] MEDS: MORPHINE SULFATE 4 MG INJ IV SCH ×5 (03:35→15:08)
[2021-04-05 05:55] LABS: Hematocrit 37.1 % (35-47); Hemoglobin 11.7 gm/dl (12.0-16.0); Mean Cell Volume 92.5 fl (78-100); Mean Corpuscular Hemoglobin 29.2 pg (26-32); Mean Corpuscular Hgb Concent. 31.5 g/dl (32-36); Mean Platelet Volume 10.1 fl (7.5-11.0); Platelet Count 217 K/mm3 (150-450); Red Blood Count 4.01 M/mm3 (4.1-5.4); White Blood Count 6.7 K/mm3 (4.0-10.5)
[2021-04-05 06:31] LABS: ALBUMIN 3.2 g/dL (3.5-5.0); ALKALINE PHOSPHATASE 78 U/L (38-126); ANION GAP 11.9 MEQ/L (5-15); BLOOD UREA NITROGEN 20 mg/dL (7-17); CHLORIDE 103 mmol/L (98-107); Carbon Dioxide 25 mmol/L (22-30); Creatinine 1 0.52 mg/dL (0.52-1.04); EST GLOMERULAR FILTRATION RATE > 60.0 ML/MIN; Glucose 106 mg/dL (74-106); MAGNESIUM 2.2 mg/dL (1.6-2.3); Potassium 4.3 mmol/L (3.5-5.1); SGOT/AST 29 U/L (14-36); SGPT/ALT 32 U/L (0-35); SODIUM 135 mmol/L (137-145); Total Protein 5.8 g/dL (6.3-8.2)
[2021-04-05] MEDS: Carafate SUSPENSION 1000 MG/10 ML PO SCH ×2 (09:01→11:50)
[2021-04-05] MEDS: PROTONIX 40 MG IV IV SCH (09:10)
[2021-04-05] MEDS: Toprol Xl 100 MG PO SCH (09:10)
[2021-04-05] MEDS: Duragesic 25MCG Patch TD SCH (09:19)
--- NOTE | 2021-04-05 14:38 | PCM.DCORD ---
- Discharge Disposition: HOME HEALTH SERVICE Condition: Stable Prescriptions: New Fentanyl 25Mcg Patch [Duragesic 25MCG Patch] 25 mcg TD Q72H Continue Metoprolol Succinate 100 mg [Toprol Xl 100 MG] 100 mg PO DAILY Albuterol Sulfate [Ventolin Hfa] 1 inh IH Q4-6HPRN PRN PRN Reason: Shortness Of Breath Discontinued Oxycodone HCl/Acetaminophen [Oxycodone-Acetaminophn 7.5-325] 1 each PO QID No Action Epinephrine [Epipen] 0.3 mg IM UD Budesonide/Formoterol Fumarate [Symbicort 160-4.5 Mcg Inhaler] 2 puff IH BID Famotidine 20 mg [Pepcid 20 MG] 20 mg PO BID Metoclopramide HCl 10 mg [Reglan 10 MG] 10 mg PO TIDWMEALS #30 tablet Ondansetron ODT 4 MG [Zofran Odt 4 mg] 4 mg PO Q6H PRN PRN #30 tab PRN Reason: Nausea/Vomiting Sucralfate 1 gm [Carafate 1 GM] 1 g PO ACHS #120 tablet PANTOPRAZOLE 40 mg Tablet [Protonix 40MG Tablet] 40 mg PO DAILY #30 tab Additional Instructions: Note RX sent through [facility] for Morphine sulphate 20mg/ml # 15ml. Take 0.25ml q 2-3 H prn cancer pain. Fentanyl patch 25mg sent to [facility]10 patches change q 72 hours. [facility] REFERRAL WAS FAXED TO [facility]. THEY WILL CONTACT YOU TO SETUP A VISIT. THEIR PHONE NUMBER IS [phone] TPN IS THRU [facility] IN [place]- THEIR PHONE NUMBER IS [phone] Follow up with: WANDER MONTOYA [Primary Care Provider] - MARCUS BELL [CONSULTING PHYSICIAN] - 04/06/21 12:45 pm PRICE PHILLIPS [ACTIVE STAFF] -
[2021-04-05 15:50] VITALS: BP 147/63; PULSE 67; O2SAT 94
== END 2021-04-05 16:25 | disposition home health service (06) | DRG 357 ==
LOC: ED 18:58 → MED SURG 03-27 01:57 → OBSVTOIN 03-27 08:00
PROVIDERS: ADMIT Family Medicine; ATTEND Family Medicine
PROC: 0DJ00ZZ Inspection of Upper Intestinal Tract, Open Approach (ICD-10-PCS; principal; 2021-03-29)
PROC: 0DJV0ZZ Inspection of Mesentery, Open Approach (ICD-10-PCS; 2021-03-29)
DX: C78.6 Secondary malignant neoplasm of retroperitoneum and peritoneum (principal); K56.601 Complete intestinal obstruction, unspecified as to cause; R18.8 Other ascites; I10 Essential (primary) hypertension; E78.00 Pure hypercholesterolemia, unspecified; J44.9 Chronic obstructive pulmonary disease, unspecified; E78.5 Hyperlipidemia, unspecified; Z85.3 Personal history of malignant neoplasm of breast; Z85.038 Personal history of other malignant neoplasm of large intestine; Z79.899 Other long term (current) drug therapy; Z98.84 Bariatric surgery status; Z20.822 Contact with and (suspected) exposure to COVID-19
CPT/HCPCS: 36000; 36415; 49000; 64488; 71045; 74018; 74176; 76937; 76942; 80053; 81001; 82947; 83690; 83735; 85025; 85027; 86850; 86900; 86901; 87086; 88341; 88342; 93005; 94760; 96360; 96374; 96375; 96376; 99284; U0003; 62322; 99100; J0171; J0694; J1100; J1885; J2250; J2270; J2274; J2405; J2704; J2795; J3010; J3480; L0625; Q0162; A9270-GY

== ENCOUNTER 2021-05-09 06:18 | Emergency (ER) | payer MEDICARE ==
[2021-05-09 06:31] VITALS: O2SAT 97
[2021-05-09 07:05] LABS: Absolute Neutrophil Ct (ANC) 5.43 (1.4-6.9); BASOPHIL % 0.1 % (0.0-0.4); Basophil (Absolute #) 0.01 (0-0.4); Eosinophil % 0.9 % (0.00-5.0); Eosinophil (Absolute #) 0.07 (0-0.5); Hemoglobin 11.7 gm/dl (12.0-16.0); Lymphocyte (Absolute #) 1.18 (1.0-4.6); Lymphocytes % 15.5 % (24.0-44.0); Mean Corpuscular Hemoglobin 29.1 pg (26-32); Mean Corpuscular Hgb Concent. 31.6 g/dl (32-36); Mean Platelet Volume 9.8 fl (7.5-11.0); Monocytes % 11.9 % (0.0-12.0); Neutrophil % 71.6 % (36.0-66.0); Platelet Count 253 K/mm3 (150-450); Red Blood Count 4.02 M/mm3 (4.1-5.4); Red Cell Distribution Width 13.6 % (11.5-14.0); White Blood Count 7.6 K/mm3 (4.0-10.5)
[2021-05-09 07:15] LABS: ALBUMIN 3.4 g/dL (3.5-5.0); ALKALINE PHOSPHATASE 87 U/L (38-126); ANION GAP 7.5 MEQ/L (5-15); BLOOD UREA NITROGEN 19 mg/dL (7-17); CHLORIDE 100 mmol/L (98-107); Calcium 8.5 mg/dL (8.4-10.2); Carbon Dioxide 29 mmol/L (22-30); Creatinine 1 0.62 mg/dL (0.52-1.04); EST GLOMERULAR FILTRATION RATE > 60.0 ML/MIN; Glucose 108 mg/dL (74-106); Potassium 3.4 mmol/L (3.5-5.1); SGOT/AST 33 U/L (14-36); SGPT/ALT 23 U/L (0-35); SODIUM 133 mmol/L (137-145); Total Protein 6.6 g/dL (6.3-8.2)
[2021-05-09] MEDS ORDERED: MORPHINE SULFATE 4 MG INJ IV ONE (07:21)
[2021-05-09] MEDS ORDERED: Klor Con 10 MEQ PO ONE ×2 (07:22→07:24)
[2021-05-09] MEDS ORDERED: DELTASONE 20 MG PO ONE (07:22)
[2021-05-09] MEDS ORDERED: DELTASONE 20 MG ONE (07:24)
[2021-05-09] MEDS ORDERED: MORPHINE SULFATE 4 MG INJ ONE (07:25)
--- NOTE | 2021-05-09 07:29 | ERPHSYRPT ---
- History of Present Illness Time Seen by Provider: 05/09/21 07:10 Source: patient Exam Limitations: no limitations Patient Subjective Stated Complaint: pt states she has been having increasing joint pain since her second keytruda dose on saturday. states every joint in her body hurts and rates joint pain as 10/10 Triage Nursing Assessment: pt alert and oriented, answers questions approp. pt arrive per ambulance and transfers to [facility] with assist of 3. skin pink warm and dry. respirations nonlabored. swelling noted to joints on rt hand. pt reports tenderness to rt hand. Physician History: Patient is a 71-year-old female with active stomach cancer currently on the Keytruda presents to our ED via EMS with complaints of diffuse arthralgias patient states all of her joints are very tender. Pain started after initiating her Keytruda 2 days ago. No fever. No myalgias. No trauma. No nausea or vomiting. No diaphoresis. No associated chest pain. No shortness of breath. No nausea vomiting or diaphoresis. Patient rates her joint pain 10 out of 10. Patient took Roxanol for pain at 530 this morning. Pain did not significantly improve. Symptoms are moderate to severe in intensity. Movement reproduces pain. Rest improves pain. Patient voices no other complaints concerns at this time. Timing/Duration: day(s) (2 days ago) Severity: moderate Modifying Factors: Improves With: movement Associated Symptoms: denies symptoms Allergies/Adverse Reactions: bee venom protein (honey bee) Adverse Reaction (Severe, Verified 05/09/21 06:32) Anaphylactic Reaction acetaminophen [From Tylenol-Codeine] Adverse Reaction (Mild, Verified 05/09/21 06:32) Nausea codeine [From Tylenol-Codeine] Adverse Reaction (Mild, Verified 05/09/21 06:32) Nausea bandaids Adverse Reaction (Mild, Uncoded 05/09/21 06:32) redness/swelling Home Medications: Epinephrine [Epipen] 0.3 mg IM UD 01/31/16 [History] Budesonide/Formoterol Fumarate [Symbicort 160-4.5 Mcg Inhaler] 2 puff IH BID 07/05/20 [History] Famotidine 20 mg [Pepcid 20 MG] 20 mg PO BID 07/20/20 [History] Metoprolol Succinate 100 mg [Toprol Xl 100 MG] 100 mg PO DAILY 11/23/20 [History] Albuterol Sulfate [Ventolin Hfa] 1 inh IH Q4-6HPRN PRN 12/01/20 [History] Fentanyl 50Mcg Patch [Duragesic 50MCG Patch] 50 mcg TD UD 05/09/21 [History] Morphine Sulfate [Roxanol] 0.25 ml PO Q2H/PRN PRN 05/09/21 [History] Hx Tetanus, Diphtheria Vaccination/Date Given: Yes Hx Influenza Vaccination/Date Given: Yes Hx Pneumococcal Vaccination/Date Given: Yes Immunizations Up to Date: Yes Travel Risk - International Travel Have you traveled outside of the country in past 3 weeks: No - Coronavirus Screening Are you exhibiting any of the following symptoms?: No Close contact with a COVID-19 positive Pt in past 14-21 Days: No - Vaccine Status Have you recieved a Covid-19 vaccination: Yes Community Living [employer]: [employer] - Vaccination Dates Date of 2cond Vaccination (if applicable): december 14, 2020 - Review of Systems Constitutional: No Symptoms, No Fever, No Chills Eyes: No Symptoms Ears, Nose, & Throat: No Symptoms Respiratory: No Symptoms, No Cough, No Dyspnea Cardiac: No Symptoms, No Chest Pain, No Edema, No Syncope Abdominal/Gastrointestinal: No Symptoms, No Abdominal Pain, No Nausea, No Vomiting, No Diarrhea Genitourinary Symptoms: No Symptoms, No Dysuria Musculoskeletal: No Symptoms, No Back Pain, No Neck Pain Skin: No Symptoms, No Rash Neurological: No Symptoms, No Dizziness, No Focal Weakness, No Sensory Changes Psychological: No Symptoms Endocrine: No Symptoms Hematologic/Lymphatic: No Symptoms Immunological/Allergic: No Symptoms All Other Systems: Reviewed and Negative - Past Medical History Pertinent Past Medical History: Yes Neurological History: No Pertinent History ENT History: No Pertinent History Cardiac History: High Cholesterol, Hypertension Respiratory History: COPD Endocrine Medical History: No Pertinent History Musculoskeletal History: Rheumatoid Arthritis GI Medical History: Colorectal Cancer, Diverticulosis, GERD, Polyps History: No Pertinent History Psycho-Social History: Anxiety Female Reproductive Disorders: Breast Cancer Other Medical History: BILATERAL Knee replacement 2008, BARIATRIC SURGERY 2009; BREAST CA W/ LUMPECTOMY 2003, colonoscopy, rheumatoid arthritis - Past Surgical History Past Surgical History: Yes Neuro Surgical History: No Pertinent History Cardiac: No Pertinent History Respiratory: No Pertinent History Gastrointestinal: Hernia Repair, Other Genitourinary: No Pertinent History Musculoskeletal: Joint Replacement, Orthopedic Surgery Female Surgical History: Tubal Ligation, Mastectomy Other Surgical History: T&A,Bjorn knee replacement, umbil. hernior.,bariatric surgery, breast cancer with partial mastectomy left, lumpectomy right breast, tubal, colon resection, states CVL port placed and removed - Social History Smoking Status: Former smoker How long have you smoked: 40 yrs Exposure to second hand smoke: Yes Drug Use: none Patient Lives Alone: No Significant Family History: heart disease, cancer - Nursing Vital Signs Nursing Vital Signs: Initial Vital Signs Temperature 99.0 F 05/09/21 06:21 Pulse Rate 82 05/09/21 06:21 Respiratory Rate 18 05/09/21 06:21 Blood Pressure 133/44 05/09/21 06:21 O2 Sat by Pulse Oximetry 97 05/09/21 06:21 Pain Scale Pain Intensity [Generalized] 10 Pain Intensity 10 - Physical Exam General Appearance: no apparent distress, alert Eye Exam: PERRL/EOMI, eyes nml inspection Ears, Nose, Throat Exam: normal ENT inspection, TMs normal, pharynx normal, moist mucous membranes Neck Exam: normal inspection, non-tender, supple, full range of motion Respiratory Exam: normal breath sounds, lungs clear, No chest tenderness, No respiratory distress Cardiovascular Exam: regular rate/rhythm, normal heart sounds, normal peripheral pulses Gastrointestinal/Abdomen Exam: soft, normal bowel sounds, No tenderness, No mass Back Exam: normal inspection, normal range of motion, No CVA tenderness, No vertebral tenderness Extremity Exam: normal inspection, normal range of motion, pelvis stable Neurologic Exam: alert, oriented x 3, cooperative, normal mood/affect, sensation nml, No motor deficits Skin Exam: normal color, warm, dry, No rash Lymphatic Exam: No adenopathy SpO2 Interpretation: normal SpO2: 97 O2 Delivery: Room Air - Course Nursing assessment & vital signs reviewed: Yes Ordered Tests: Active Orders 24 hr Category Date Time Status CBC W DIFF Stat Lab 05/09/21 06:54 Completed CMP Stat Lab 05/09/21 06:52 Completed Medication Summary Discontinued Medications Generic Name Dose Route Start Last Admin Trade Name Freq PRN Reason Stop Dose Admin Morphine Sulfate 4 mg 05/09/21 07:21 05/09/21 07:29 Morphine Sulfate 4 Mg Inj IV 05/09/21 07:22 4 mg STAT ONE Administration Morphine Sulfate Confirm 05/09/21 07:25 Morphine Sulfate 4 Mg Inj Administered 05/09/21 07:26 Dose 4 mg .ROUTE .STK-MED ONE Potassium Chloride 40 meq 05/09/21 07:22 05/09/21 07:30 Klor Con 10 Meq PO 05/09/21 07:23 40 meq STAT ONE Administration Potassium Chloride Confirm 05/09/21 07:24 Klor Con 10 Meq Administered 05/09/21 07:25 Dose 40 meq PO .STK-MED ONE Prednisone 60 mg 05/09/21 07:22 05/09/21 07:30 Deltasone 20 Mg PO 05/09/21 07:23 60 mg STAT ONE Administration Prednisone Confirm 05/09/21 07:24 Deltasone 20 Mg Administered 05/09/21 07:25 Dose 60 mg .ROUTE .STK-MED ONE Lab/Rad Data: Laboratory Result Diagrams 05/09/21 06:54 05/09/21 06:52 Laboratory Results 05/09/21 05/09/21 Range/Units 06:54 06:52 WBC 7.6 (4.0-10.5) K/mm3 RBC 4.02 L (4.1-5.4) M/mm3 Hgb 11.7 L (12.0-16.0) gm/dl Hct 37.0 (35-47) % MCV 92.0 (78-100) fl MCH 29.1 (26-32) pg MCHC 31.6 L (32-36) g/dl RDW 13.6 (11.5-14.0) % Plt Count 253 (150-450) K/mm3 MPV 9.8 (7.5-11.0) fl Gran % 71.6 H (36.0-66.0) % Eos # (Auto) 0.07 (0-0.5) Absolute Lymphs (auto) 1.18 (1.0-4.6) Absolute Monos (auto) 0.90 (0.0-1.3) Lymphocytes % 15.5 L (24.0-44.0) % Monocytes % 11.9 (0.0-12.0) % Eosinophils % 0.9 (0.00-5.0) % Basophils % 0.1 (0.0-0.4) % Absolute Granulocytes 5.43 (1.4-6.9) Basophils # 0.01 (0-0.4) Sodium 133 L (137-145) mmol/L Potassium 3.4 L (3.5-5.1) mmol/L Chloride 100 (98-107) mmol/L Carbon Dioxide 29 (22-30) mmol/L Anion Gap 7.5 (5-15) MEQ/L BUN 19 H (7-17) mg/dL Creatinine 0.62 (0.52-1.04) mg/dL Estimated GFR > 60.0 ML/MIN Glucose 108 H (74-106) mg/dL Calcium 8.5 (8.4-10.2) mg/dL Total Bilirubin 0.50 (0.2-1.3) mg/dL AST 33 (14-36) U/L ALT 23 (0-35) U/L Alkaline Phosphatase 87 (38-126) U/L Serum Total Protein 6.6 (6.3-8.2) g/dL Albumin 3.4 L (3.5-5.0) g/dL - Progress Progress: improved Progress Note: I discussed the case with patient's oncologist Dr. Perry who advised outpatient 60 mg of prednisone for 5 days then 40 mg for 5 days then 20 mg for 5 days. Patient currently has an appointment scheduled with her oncologist for next week. For next week. 05/09/21 07:30 05/09/21 07:41 Patient reassessed. Pain improved. Patient received 4 mg of morphine. Patient also received a dose of prednisone. Potassium is slightly low. Oral potassium replacement was administered as well. Patient daughter will pick her up. She will follow through with her medication regimen and appointment is scheduled. 05/09/21 07:43 Patient came into the ED prior to the beginning of my shift. The previous physician ordered labs prior to my arrival. Discussed with : Other Counseled pt/family regarding: lab results, diagnosis, need for follow-up - Departure Departure Disposition: Home Clinical Impression: Arthralgia, Medication adverse effect, Hypokalemia Condition: Stable Critical Care Time: No Referrals: WANDER MONTOYA [Primary Care Provider] - Additional Instructions: Per your oncologist you are to take 60 mg of prednisone for 5 days then 40 mg of prednisone for 5 days and finally 20 mg of prednisone for 5 days. Be sure to attend your follow-up appointment with Dr. Perry as scheduled for next week. Discharge/Care Plan JEREMIAH CONCEPCION was seen on 05/09/21 in the Emergency Room. The patient was counseled regarding Diagnosis,Lab results, Imaging studies, need for follow up and when to return to the Emergency Room. Prescriptions given: Discharge Note I have spoken with the patient and/or caregivers. I have explained the patient's condition, diagnosis and treatment plan based on the information available to me at this time. I have answered the patient's and/or caregiver's questions and addressed any concerns. The patient and/or caregivers have as good understanding of the patient's diagnosis, condition and treatment plan as can be expected at this point. The vital signs have been stable. The patient's condition is stable and appropriate for discharge from the emergency department. The patient will pursue further outpatient evaluation with the primary care physician or other designated or consulting physician as outlined in the discharge instructions. The patient and/or caregivers are agreeable to this plan of care and follow-up instructions have been explained in detail. The patient and/or caregivers have received these instruction. The patient/and or caregivers are aware that any significant change in condition or worsening of symptoms should prompt an immediate return to this or the closest emergency department or call 911. Prescriptions: Prednisone 10 mg [Deltasone 10 mg] 60 mg PO DAILY 15 Days #60 tablet
[2021-05-09 07:46] VITALS: BP 99/59; PULSE 80
== END 2021-05-09 07:52 | disposition home or self-care (01) ==
LOC: ED 06:18
DX: M25.50 Pain in unspecified joint (principal); I10 Essential (primary) hypertension; T88.7XXA Unspecified adverse effect of drug or medicament, initial encounter; T50.905A Adverse effect of unspecified drugs, medicaments and biological substances, initial encounter; E87.6 Hypokalemia
CPT/HCPCS: 36415; 80053; 85025; 96374; 99284; J2270; A9270-GY

== ENCOUNTER 2021-07-19 09:07 | Day surgery (SDC) | payer MEDICARE ==
[2012-05-22 11:43] VITALS: BP 117/51
[2021-07-19] MEDS ORDERED: BUPIVACAINE 0.5% VIAL IJ ONE (09:08)
[2021-07-19] MEDS ORDERED: Xylocaine 1% Vial 30 ML PF IJ ONE (09:08)
[2021-07-19] MEDS ORDERED: Decadron 4 MG INJ IV ONE (09:08)
[2021-07-19] MEDS ORDERED: Depo-Medrol 40 MG/ML IM ONE (09:08)
[2021-07-19] MEDS ORDERED: DIPRIVAN 200 MG/20 ML IV ONE (10:49)
[2021-07-19] MEDS ORDERED: Lactated Ringers 1,000 ML IV ONE (12:25)
--- NOTE | 2021-07-19 12:55 | XRAY ---
Indication: Right ischial bursa and piriformis muscle injections. Intraoperative fluoroscopy provided for 31 seconds. 2 digital spot image submitted for interpretation demonstrate posterior needle tip projecting over the expected right piriformis muscle. Second needle tip inferior to the ischial tuberosity. Small amount of contrast injected for both needle tip placement. Correlate with intraoperative findings/report.
--- NOTE | 2021-07-19 13:07 | XRAY ---
31 seconds fluoroscopy time in surgery for injections of the ishial bursa and the piriformis muscle of the right hip.
== END 2021-07-19 11:17 | disposition home or self-care (01) ==
LOC: SDC-PAIN 09:07
PROVIDERS: ATTEND Psychiatry & Neurology Pain Medicine
DX: M79.18 Myalgia, other site (principal); M70.71 Other bursitis of hip, right hip; I10 Essential (primary) hypertension; D64.9 Anemia, unspecified; Z79.899 Other long term (current) drug therapy
CPT/HCPCS: 20552; 20610; 72170; 77002; 99100; J1030; J1100; J1642; J2001; J2704; Q9966

== ENCOUNTER 2021-11-22 09:19 | Day surgery (SDC) | payer MEDICARE ==
[2012-05-22 11:43] VITALS: BP 117/51
[2021-11-22] MEDS ORDERED: Sodium Chloride 0.9(Preservative Free) 10 ML IJ ONE (09:20)
[2021-11-22] MEDS ORDERED: Xylocaine 1% Vial 30 ML PF IJ ONE (09:20)
[2021-11-22] MEDS ORDERED: Decadron 4 MG INJ IV ONE (09:20)
[2021-11-22] MEDS ORDERED: Depo-Medrol 40 MG/ML IM ONE (09:20)
[2021-11-22] MEDS ORDERED: Lactated Ringers 1,000 ML IV ONE (11:18)
[2021-11-22] MEDS ORDERED: DIPRIVAN 200 MG/20 ML IV ONE (11:32)
--- NOTE | 2021-11-22 12:50 | XRAY ---
Indication: Right piriformis injection. Intraoperative fluoroscopy provided for 9 seconds. Single digital spot image submitted for interpretation demonstrates posterior needle tip projecting over the expected right piriformis muscle. Small amount of contrast injected for needle tip placement. Correlate with intraoperative findings/report.
--- NOTE | 2021-11-22 12:50 | XRAY ---
Indication: Caudal CHIDI. Intraoperative fluoroscopy provided for 20 seconds. 2 digital spot image submitted for interpretation demonstrates posterior caudal needle tip projecting mid sacrum. Small amount of contrast injected for needle tip placement. Correlate with intraoperative findings/report.
--- NOTE | 2021-11-22 12:58 | XRAY ---
9 seconds fluoroscopy time in surgery for injection of the right piriformis muscle.
--- NOTE | 2021-11-22 12:59 | XRAY ---
20 seconds fluoroscopy time in surgery for caudal CHIDI.
== END 2021-11-22 11:45 | disposition home or self-care (01) ==
LOC: SDC-PAIN 09:19
PROVIDERS: ATTEND Psychiatry & Neurology Pain Medicine
DX: M54.16 Radiculopathy, lumbar region (principal); M79.18 Myalgia, other site; I10 Essential (primary) hypertension; Z79.899 Other long term (current) drug therapy
CPT/HCPCS: 20552; 62323; 72020; 72220; 77002; 77003; 99100; J1030; J1100; J1642; J2001; J2704; Q9966

== ENCOUNTER 2022-03-09 11:51 | Emergency (ER) | payer MEDICARE ==
[2022-03-09] MEDS ORDERED: Lasix 40 MG/4 ML IV ONE (12:01)
[2022-03-09 12:20] LABS: Absolute Neutrophil Ct (ANC) 2.58 x10^3/uL (1.4-6.9); Basophil (Absolute #) 0.04 x10^3/uL (0-0.4); Eosinophil % 3.7 % (0.00-5.0); Eosinophil (Absolute #) 0.19 x10^3/uL (0-0.5); Hematocrit 34.7 % (35-47); Hemoglobin 10.2 g/dL (12.0-16.0); Lymphocyte (Absolute #) 1.56 x10^3/uL (1.0-4.6); Lymphocytes % 30.1 % (24.0-44.0); Mean Corpuscular Hemoglobin 24.7 pg (26-32); Mean Corpuscular Hgb Concent. 29.4 g/dL (32-36); Mean Platelet Volume 9.2 fL (7.5-11.0); Monocytes % 15.4 % (0.0-12.0); Neutrophil % 49.8 % (36.0-66.0); Platelet Count 210 x10^3/uL (150-450); Red Blood Count 4.13 x10^6/uL (4.1-5.4); Red Cell Distribution Width 14.9 % (11.5-14.0); White Blood Count 5.2 x10^3/uL (4.0-10.5)
[2022-03-09] MEDS ORDERED: Lasix 40 MG/4 ML ONE (12:31)
[2022-03-09 12:43] LABS: INR 1.03 (0.8-3.0); PROTIME 10.9 SECONDS (9.4-12.5)
[2022-03-09 12:48] LABS: D-DIMER QUANTITATIVE 1.47 mg/L (0.0-0.50)
[2022-03-09 12:55] VITALS: O2SAT 97
[2022-03-09 12:59] LABS: ALBUMIN 3.5 g/dL (3.5-5.0); ALKALINE PHOSPHATASE 101 U/L (38-126); ANION GAP 9.1 MEQ/L (5-15); BLOOD UREA NITROGEN 15 mg/dL (7-17); CHLORIDE 101 mmol/L (98-107); Calcium 8.6 mg/dL (8.4-10.2); Carbon Dioxide 31 mmol/L (22-30); Creatinine 1 0.71 mg/dL (0.52-1.04); EST GLOMERULAR FILTRATION RATE > 60.0 ML/MIN; Glucose 102 mg/dL (74-106); MAGNESIUM 1.5 mg/dL (1.6-2.3); NT PRO BNP 137 pg/mL (0-900); Potassium 3.2 mmol/L (3.5-5.1); SGOT/AST 31 U/L (14-36); SGPT/ALT 20 U/L (0-35); SODIUM 138 mmol/L (137-145); Total Protein 6.7 g/dL (6.3-8.2)
--- NOTE | 2022-03-09 13:00 | XRAY ---
Exam: AP upright portable chest film from 03/09/2022. Comparison: Two-view chest series from 10/23/2021. Indication: Shortness of breath. Findings: The heart size is normal. The kevon and mediastinal structures appear unremarkable. A left-sided carol catheter is noted with the distal tip pointing inferiorly within the distal SVC. The lungs are adequately inflated and appear clear. No vascular congestion, pneumothorax, or pleural fluid is seen. Lateral osteophyte formation is seen within the mid and lower thoracic spine. Mild degenerative changes are seen within both shoulders. Impression: 1. No acute cardiopulmonary disease is seen. I again see a left-sided carol catheter in unchanged position.
--- NOTE | 2022-03-09 13:10 | ERPHSYRPT ---
- History of Present Illness Time Seen by Provider: 03/09/22 12:00 Source: patient Exam Limitations: no limitations Patient Subjective Stated Complaint: SOB Triage Nursing Assessment: Patient ambulated back to ED and transferred self to bed. Patient A+O X 3. Patient's skin pink, warm and dry. Patient complains of SOB and swelling to BLE for one week. Patient was started on Lasix 40mg PO daily per Dr. Lechuga 4 days ago. Patient states she doesn't feel like the med is working. Patient denies pain or discomfort. Lungs clear a/p jolanta. non pitting edema noted to BLE. Physician History: Patient is a 72-year-old white female who presents with a complaint of shortness of breath and swelling of both legs for 1 week. She did contact her PCP who started her on Lasix 40 mg twice daily. The patient states that she does not have much of a response to the Lasix. She does have a history of bowel CA x2 she cannot lay flat and elevating her legs does not seem to help. Timing/Duration: week(s) (1) Activities at Onset: none Severity of Dyspnea-Max: moderate Severity of Dyspnea-Current: mild Possible Cause: no prior episodes Associated Symptoms: ankle swelling, leg swelling Allergies/Adverse Reactions: bee venom protein (honey bee) Adverse Reaction (Severe, Verified 05/09/21 06:32) Anaphylactic Reaction acetaminophen [From Tylenol-Codeine] Adverse Reaction (Mild, Verified 05/09/21 06:32) Nausea codeine [From Tylenol-Codeine] Adverse Reaction (Mild, Verified 05/09/21 06:32) Nausea bandaids Adverse Reaction (Mild, Uncoded 05/09/21 06:32) redness/swelling Home Medications: EPINEPHrine [Epipen 2-Malcolm] 0.3 mg IM UD 01/31/16 [History] Budesonide/Formoterol Fumarate [Symbicort 160-4.5 Mcg Inhaler] 2 puff IH BID 07/05/20 [History] Famotidine 20 mg [Pepcid 20 MG] 20 mg PO BID 07/20/20 [History] Metoprolol Succinate 100 mg [Toprol Xl 100 MG] 100 mg PO DAILY 11/23/20 [History] Albuterol Sulfate [Ventolin Hfa] 1 inh IH Q4-6HPRN PRN 04/29/21 [History] Fentanyl 50Mcg Patch [Duragesic 50MCG Patch] 50 mcg TD UD 05/09/21 [History] Morphine Sulfate [Roxanol] 0.25 ml PO Q2H/PRN PRN 05/09/21 [History] Hx Tetanus, Diphtheria Vaccination/Date Given: Yes Hx Influenza Vaccination/Date Given: Yes Hx Pneumococcal Vaccination/Date Given: Yes Immunizations Up to Date: Yes Travel Risk - International Travel Have you traveled outside of the country in past 3 weeks: No - Coronavirus Screening Are you exhibiting any of the following symptoms?: No Close contact with a COVID-19 positive Pt in past 14-21 Days: No - Vaccine Status Have you recieved a Covid-19 vaccination: Yes [employer]: [employer] - Vaccination Dates Date of 2cond Vaccination (if applicable): december 14, 2020 - Review of Systems Constitutional: No Fever, No Chills Eyes: No Symptoms Ears, Nose, & Throat: No Symptoms Respiratory: No Cough, No Dyspnea Cardiac: No Chest Pain, No Edema, No Syncope Abdominal/Gastrointestinal: No Abdominal Pain, No Nausea, No Vomiting, No Diarrhea Genitourinary Symptoms: No Dysuria Musculoskeletal: No Back Pain, No Neck Pain Skin: No Rash Neurological: No Dizziness, No Focal Weakness, No Sensory Changes Psychological: No Symptoms Endocrine: No Symptoms All Other Systems: Reviewed and Negative - Past Medical History Pertinent Past Medical History: Yes Neurological History: No Pertinent History ENT History: No Pertinent History Cardiac History: High Cholesterol, Hypertension Respiratory History: COPD Endocrine Medical History: No Pertinent History Musculoskeletal History: Rheumatoid Arthritis GI Medical History: Colorectal Cancer, Diverticulosis, GERD, Polyps History: No Pertinent History Psycho-Social History: Anxiety Female Reproductive Disorders: Breast Cancer Other Medical History: BILATERAL Knee replacement 2008, BARIATRIC SURGERY 2009; BREAST CA W/ LUMPECTOMY 2003, colonoscopy, rheumatoid arthritis - Past Surgical History Past Surgical History: Yes Neuro Surgical History: No Pertinent History Cardiac: No Pertinent History Respiratory: No Pertinent History Gastrointestinal: Hernia Repair, Other Genitourinary: No Pertinent History Musculoskeletal: Joint Replacement, Orthopedic Surgery Female Surgical History: Tubal Ligation, Mastectomy Other Surgical History: T&A,Jolanta knee replacement, umbil. hernior.,bariatric surgery, breast cancer with partial mastectomy left, lumpectomy right breast, tubal, colon resection, states CVL port placed and removed - Social History Smoking Status: Former smoker How long have you smoked: 40 yrs Exposure to second hand smoke: Yes Drug Use: none Patient Lives Alone: Yes Significant Family History: heart disease, cancer - Nursing Vital Signs Nursing Vital Signs: Initial Vital Signs Temperature 96.7 F 03/09/22 11:55 Pulse Rate 95 H 03/09/22 11:55 Respiratory Rate 19 03/09/22 11:55 Blood Pressure 162/79 03/09/22 11:55 O2 Sat by Pulse Oximetry 97 03/09/22 11:55 Pain Scale Pain Intensity 0 - Physical Exam General Appearance: mild distress, alert Eye Exam: PERRL/EOMI Neck Exam: normal inspection, supple Cardiovascular/Chest Exam: normal heart sounds, regular rate/rhythm Abdominal/Gastrointestinal Exam: soft, No tenderness, No distention, No mass Extremity Exam: non-tender, normal range of motion, normal inspection, no calf tenderness, pedal edema Neurologic Exam: alert, oriented x 3, cooperative, 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, sensation nml, No motor deficits Skin Exam: normal color, warm, No dry SpO2 Interpretation: normal SpO2: 97 O2 Delivery: Room Air - Course Nursing assessment & vital signs reviewed: Yes EKG Interpreted by Me: RATE (92), Sinus Rhythm, NORMAL AXIS, Other (Frequent PVCs, prolonged NE interval low voltage in the precordial leads) - Radiology Exams Chest X-ray Interpretation: Reviewed by me - CT Exams Chest CT Interpretation: Negative (No pulmonary emboli noted) - Radiology Ultrasound Exam Venous Lower Extremity Ultrasound: Other (Bilateral lower extremity venous ultrasound negative for clots) Ordered Tests: Active Orders 24 hr Category Date Time Status EKG-ER Only STAT Care 03/09/22 12:01 Active IV Insertion STAT Care 03/09/22 12:01 Active CHEST 1 VIEW (PORTABLE) Stat Exams 03/09/22 12:01 Completed CHEST WITH CONTRAST [CT] Stat Exams 03/09/22 13:31 Completed VENOUS BILATERAL EXTREMITY [US] Stat Exams 03/09/22 14:31 Taken CBC W DIFF Stat Lab 03/09/22 12:15 Completed CMP Stat Lab 03/09/22 12:15 Completed D-DIMER QUANTITATIVE Stat Lab 03/09/22 12:15 Completed Lactic Acid Stat Lab 03/09/22 12:01 Completed MAGNESIUM Stat Lab 03/09/22 12:15 Completed NT PRO BNP Stat Lab 03/09/22 12:15 Completed PROTIME WITH INR Stat Lab 03/09/22 12:15 Completed TROPONIN Q4H Lab 03/09/22 12:15 Completed TROPONIN Q4H Lab 03/09/22 16:15 Ordered TROPONIN Q4H Lab 03/09/22 20:15 Ordered UA W/RFX CULTURE Stat Lab 03/09/22 12:51 Completed Medication Summary Discontinued Medications Generic Name Dose Route Start Last Admin Trade Name Cassius PRN Reason Stop Dose Admin Furosemide 40 mg 03/09/22 12:01 03/09/22 12:32 Furosemide 40 Mg/4 Ml Vial IV 03/09/22 12:02 40 mg STAT ONE Administration Furosemide Confirm 03/09/22 12:31 Furosemide 40 Mg/4 Ml Vial Administered 03/09/22 12:32 Dose 40 mg .ROUTE .[employer] ONE Lab/Rad Data: Laboratory Result Diagrams 03/09/22 12:15 03/09/22 12:15 Laboratory Results 03/09/22 03/09/22 03/09/22 Range/Units 12:51 12:15 12:15 WBC (4.0-10.5) x10^3/uL RBC (4.1-5.4) x10^6/uL Hgb (12.0-16.0) g/dL Hct (35-47) % MCV (78-100) fL MCH (26-32) pg MCHC (32-36) g/dL RDW (11.5-14.0) % Plt Count (150-450) x10^3/uL MPV (7.5-11.0) fL Gran % (36.0-66.0) % Immature Gran % (Auto) (0.00-0.4) % Nucleat RBC Rel Count (0.00-0.1) % Eos # (Auto) (0-0.5) x10^3/uL Immature Gran # (Auto) (0.00-0.03) x10^3u/L Absolute Lymphs (auto) (1.0-4.6) x10^3/uL Absolute Monos (auto) (0.0-1.3) x10^3/uL Absolute Nucleated RBC (0.00-0.01) x10^3u/L Lymphocytes % (24.0-44.0) % Monocytes % (0.0-12.0) % Eosinophils % (0.00-5.0) % Basophils % (0.0-0.4) % Absolute Granulocytes (1.4-6.9) x10^3/uL Basophils # (0-0.4) x10^3/uL PT 10.9 (9.4-12.5) SECONDS INR 1.03 (0.8-3.0) D-Dimer 1.47 H* (0.0-0.50) mg/L Sodium (137-145) mmol/L Potassium (3.5-5.1) mmol/L Chloride (98-107) mmol/L Carbon Dioxide (22-30) mmol/L Anion Gap (5-15) MEQ/L BUN (7-17) mg/dL Creatinine (0.52-1.04) mg/dL Estimated GFR ML/MIN Glucose (74-106) mg/dL Lactic Acid (0.4-2.0) Calcium (8.4-10.2) mg/dL Magnesium (1.6-2.3) mg/dL Total Bilirubin (0.2-1.3) mg/dL AST (14-36) U/L ALT (0-35) U/L Alkaline Phosphatase (38-126) U/L Troponin I 0.056 H* (0.000-0.034) ng/mL NT-Pro-B Natriuret Pep (0-900) pg/mL Serum Total Protein (6.3-8.2) g/dL Albumin (3.5-5.0) g/dL Urinalys Dipstick Clnc MAIN LAB Urine Color YELLOW (YELLOW) Urine Appearance CLEAR (CLEAR) Urine pH 5.5 (5-6) Ur Specific [place] 1.015 (1.005-1.025) POC Urine Protein Conf NEGATIVE (Negative) Urine Ketones NEGATIVE (NEGATIVE) Urine Nitrite NEGATIVE (NEGATIVE) Urine Bilirubin NEGATIVE (NEGATIVE) Urine Urobilinogen 0.2 (0-1) mg/dL Urine Leukocytes NEGATIVE (NEGATIVE) Urine RBC (Auto) 0-2 (0-2) /HPF U Hyaline Cast (Auto) 6-10 (0-2) /LPF U Epithel Cells (Auto) RARE (FEW) /HPF Urine RBC NEGATIVE (0-5) Mike/ul Urine Mucus (Auto) SLIGHT (NEGATIVE) /HPF Ur Culture Indicated? NO Urine Glucose NEGATIVE (NEGATIVE) mg/dL 03/09/22 03/09/22 03/09/22 Range/Units 12:15 12:15 12:01 WBC 5.2 (4.0-10.5) x10^3/uL RBC 4.13 (4.1-5.4) x10^6/uL Hgb 10.2 L (12.0-16.0) g/dL Hct 34.7 L (35-47) % MCV 84.0 (78-100) fL MCH 24.7 L (26-32) pg MCHC 29.4 L (32-36) g/dL RDW 14.9 H (11.5-14.0) % Plt Count 210 (150-450) x10^3/uL MPV 9.2 (7.5-11.0) fL Gran % 49.8 (36.0-66.0) % Immature Gran % (Auto) 0.2 (0.00-0.4) % Nucleat RBC Rel Count 0.0 (0.00-0.1) % Eos # (Auto) 0.19 (0-0.5) x10^3/uL Immature Gran # (Auto) 0.01 (0.00-0.03) x10^3u/L Absolute Lymphs (auto) 1.56 (1.0-4.6) x10^3/uL Absolute Monos (auto) 0.80 (0.0-1.3) x10^3/uL Absolute Nucleated RBC 0.00 (0.00-0.01) x10^3u/L Lymphocytes % 30.1 (24.0-44.0) % Monocytes % 15.4 H (0.0-12.0) % Eosinophils % 3.7 (0.00-5.0) % Basophils % 0.8 (0.0-0.4) % Absolute Granulocytes 2.58 (1.4-6.9) x10^3/uL Basophils # 0.04 (0-0.4) x10^3/uL PT (9.4-12.5) SECONDS INR (0.8-3.0) D-Dimer (0.0-0.50) mg/L Sodium 138 (137-145) mmol/L Potassium 3.2 L (3.5-5.1) mmol/L Chloride 101 (98-107) mmol/L Carbon Dioxide 31 H (22-30) mmol/L Anion Gap 9.1 (5-15) MEQ/L BUN 15 (7-17) mg/dL Creatinine 0.71 (0.52-1.04) mg/dL Estimated GFR > 60.0 ML/MIN Glucose 102 (74-106) mg/dL Lactic Acid 1.3 (0.4-2.0) Calcium 8.6 (8.4-10.2) mg/dL Magnesium 1.5 L (1.6-2.3) mg/dL Total Bilirubin 0.40 (0.2-1.3) mg/dL AST 31 (14-36) U/L ALT 20 (0-35) U/L Alkaline Phosphatase 101 (38-126) U/L Troponin I (0.000-0.034) ng/mL NT-Pro-B Natriuret Pep 137 (0-900) pg/mL Serum Total Protein 6.7 (6.3-8.2) g/dL Albumin 3.5 (3.5-5.0) g/dL Urinalys Dipstick Clnc Urine Color (YELLOW) Urine Appearance (CLEAR) Urine pH (5-6) Ur Specific [place] (1.005-1.025) POC Urine Protein Conf (Negative) Urine Ketones (NEGATIVE) Urine Nitrite (NEGATIVE) Urine Bilirubin (NEGATIVE) Urine Urobilinogen (0-1) mg/dL Urine Leukocytes (NEGATIVE) Urine RBC (Auto) (0-2) /HPF U Hyaline Cast (Auto) (0-2) /LPF U Epithel Cells (Auto) (FEW) /HPF Urine RBC (0-5) Mike/ul Urine Mucus (Auto) (NEGATIVE) /HPF Ur Culture Indicated? Urine Glucose (NEGATIVE) mg/dL - Progress Progress: improved Air Movement: good Blood Culture(s) Obtained: No Antibiotics given: No - Departure Departure Disposition: Home Clinical Impression: Peripheral edema, Elevated troponin I level Condition: Stable Critical Care Time: No Referrals: WANDER LECHUGA [Primary Care Provider] - Follow up/PCP as directed Instructions: Shortness of Breath (Dyspnea) (DC), Dependent Edema (DC)
[2022-03-09 13:18] LABS: Epithelial Cells RARE /HPF (FEW); Mucus SLIGHT /HPF (NEGATIVE); RBC 0-2 /HPF (0-2)
[2022-03-09 13:19] LABS: Appearance CLEAR (CLEAR); Bilirubin NEGATIVE (NEGATIVE); Glucose NEGATIVE (NEGATIVE); Ketones NEGATIVE (NEGATIVE); Nitrite NEGATIVE (NEGATIVE); Ph 5.5 (5-6); Protein,Urine Dip NEGATIVE (Negative); RBC NEGATIVE Ery/ul (0-5); Specific Gravity 1.015 (1.005-1.025); Urine Cultured Indicated? NO; Urobilinogen 0.2 mg/dL (0-1)
[2022-03-09 13:20] LABS: Dipstick done @ ? MAIN LAB
[2022-03-09 13:29] VITALS: BP 136/86; PULSE 91
--- NOTE | 2022-03-09 14:45 | XRAY ---
Exam: CT of the chest with IV contrast, per PE protocol, from 03/09/2022. CTDI: 29.13 mGy Comparison: CT of the chest with IV contrast, per PE protocol, from 10/26/2021. Indication: 72-year-old female with elevated d-dimer (1.47) and shortness of breath. Technique: Post-IV contrast axial images were obtained through the chest using the PE protocol during automated injection of 100 cc of Isovue-370 contrast material through the power port. Findings: The pulmonary arterial tree is well-opacified with IV contrast and reveals no filling defects to suggest pulmonary emboli. Some arteriosclerotic vascular calcification is seen within the thoracic aorta. No thoracic aortic aneurysm or dissection is seen. The heart size is normal without pericardial effusion. Some coronary artery vascular calcification is seen on the left. Small granulomatous calcifications are seen within the right hilum and subcarinal region representing no change. A calcified granuloma is seen within the medial aspect of the right lower lobe representing no change. I see no pathological lymphadenopathy within the mediastinum or kevon. A portacatheter is seen on the left with the tip in the distal SVC. Mild centrilobular emphysematous changes are seen within both upper lung rod representing no change. I see no air space infiltrates or suspicious soft tissue lung nodularity. No pleural effusion is seen. There appears to be some minimal peripheral scarring within each lung field. Significant fatty infiltration of the liver is seen. The adrenal glands appear unremarkable. I cannot exclude a minimal hiatal hernia. Suture material is seen within the upper abdomen in the midline and just to the left of midline which is probably due to prior bariatric surgery. The skeleton reveals degenerative changes within the lower thoracic spine and visualized upper lumbar spine. No acute fracture is seen. However, I again note a fracture of the posterior medial aspect of the right seventh rib which appears ununited. A prominent calcification is seen within the medial left breast which may relate to a calcified fibroadenoma. Impression: 1. No findings of pulmonary emboli are seen. 2. Centrilobular emphysematous changes are seen, most prominent within the upper lungs, minimal peripheral scattered fibrosis/scarring, small hiatal hernia, evidence of prior bariatric surgery, significant hepatic steatosis, and old granulomatous disease are again seen. 3. Ununited posterior right seventh rib fracture as compared to the prior study from 10/26/2021.
--- NOTE | 2022-03-10 17:12 | XRAY ---
Exam: Duplex Doppler Ultrasound of the right and left lower extremity. Comparison: Right lower extremity duplex Doppler ultrasound from 10/12/2021. Indication: 72-year-old female with shortness of breath and elevated d-dimer. Findings: The examination of the right and left lower extremity was carried out in the usual manner imaging [employer] sections of the common femoral vein through the popliteal vein. The posterior tibial veins were also evaluated. Normal color flow was seen throughout. Normal spontaneous and phasic flow was seen at all [employer] sections. There was normal transducer compression and doppler signal augmentation at all levels. The greater saphenous vein within the proximal thighs demonstrate normal color blood flow, transducer compression, and Doppler signal augmentation bilaterally. I also note normal transducer compression of the mid and distal greater saphenous veins bilaterally. Impression: 1. No evidence of deep venous thrombosis is seen within the right and left lower extremity. 2. No evidence of superficial venous thrombosis is seen within the greater saphenous vein of each lower extremity.
== END 2022-03-09 15:35 | disposition home or self-care (01) ==
LOC: ED 11:51
DX: R60.9 Edema, unspecified (principal); R77.8 Other specified abnormalities of plasma proteins; R06.02 Shortness of breath; E78.5 Hyperlipidemia, unspecified; I10 Essential (primary) hypertension; J44.9 Chronic obstructive pulmonary disease, unspecified; Z79.891 Long term (current) use of opiate analgesic; Z79.899 Other long term (current) drug therapy
CPT/HCPCS: 36000; 36415; 71045; 71260; 80053; 81015; 83605; 83735; 83880; 84484; 85025; 85379; 85610; 93005; 93970; 96374; 99284; J1642; J1940

== ENCOUNTER 2022-03-09 17:09 | Observation (INO) | payer MEDICARE ==
[2022-03-09] MEDS ORDERED: BABY ASPIRIN 81 MG CHEW PO ONE (17:17)
[2022-03-09] MEDS ORDERED: BABY ASPIRIN 81 MG CHEW ONE (17:22)
[2022-03-09 17:37] LABS: Absolute Neutrophil Ct (ANC) 3.59 x10^3/uL (1.4-6.9); Basophil (Absolute #) 0.05 x10^3/uL (0-0.4); Eosinophil % 3.1 % (0.00-5.0); Eosinophil (Absolute #) 0.19 x10^3/uL (0-0.5); Hematocrit 35.3 % (35-47); Hemoglobin 10.5 g/dL (12.0-16.0); Lymphocyte (Absolute #) 1.51 x10^3/uL (1.0-4.6); Mean Cell Volume 83.1 fL (78-100); Mean Corpuscular Hemoglobin 24.7 pg (26-32); Mean Corpuscular Hgb Concent. 29.7 g/dL (32-36); Mean Platelet Volume 9.1 fL (7.5-11.0); Monocyte (Absolute #) 0.69 x10^3/uL (0.0-1.3); Monocytes % 11.4 % (0.0-12.0); Neutrophil % 59.5 % (36.0-66.0); Platelet Count 208 x10^3/uL (150-450); Red Blood Count 4.25 x10^6/uL (4.1-5.4); Red Cell Distribution Width 14.9 % (11.5-14.0)
[2022-03-09 17:51] LABS: ALBUMIN 3.7 g/dL (3.5-5.0); ALKALINE PHOSPHATASE 97 U/L (38-126); ANION GAP 10.5 MEQ/L (5-15); BLOOD UREA NITROGEN 15 mg/dL (7-17); CHLORIDE 98 mmol/L (98-107); Calcium 8.7 mg/dL (8.4-10.2); Carbon Dioxide 30 mmol/L (22-30); Creatinine 1 0.73 mg/dL (0.52-1.04); EST GLOMERULAR FILTRATION RATE > 60.0 ML/MIN; Glucose 115 mg/dL (74-106); SGOT/AST 31 U/L (14-36); SGPT/ALT 21 U/L (0-35); SODIUM 136 mmol/L (137-145); Total Protein 6.8 g/dL (6.3-8.2)
[2022-03-09 18:01] LABS: Potassium 2.8 mmol/L (3.5-5.1)
[2022-03-09] MEDS ORDERED: K-LYTE PO ONE (18:03)
[2022-03-09] MEDS ORDERED: K-LYTE ONE (18:04)
--- NOTE | 2022-03-09 19:11 | ERPHSYRPT ---
<PRICE GREGORIO - Last Filed: 03/09/22 19:06> - History of Present Illness Time Seen by Provider: 03/09/22 17:30 Historian: patient Exam Limitations: no limitations Patient Subjective Stated Complaint: Chest pain Triage Nursing Assessment: Patient brought into ED per EMS and transferred self to bed. Patient A+O X 3. Patient's skin pink, warm and dry. Patient was [facility] and was driving home when she started having chest pain and numbness to left hand. Patient states she drove home and called 911. Upon a rrival patient denies any pain or discomfort. Physician History: Patient is a 72-year-old white female who has a history of bowel cancer with 2 separate episodes followed by Dr. Reno Hedrick at [facility] who presented this afternoon to the ER with a complaint of shortness of breath and swelling for 1 week. She had seen her PCP Dr. Montoya was placed on Ashley Lasix 40 mg p.o. daily but did not seem to get any response. So we examined her at that time found her to have 1-2+ pitting edema of both ankles lungs were clear we gave her 40 of Lasix IV her EKG was nonspecific no acute findings she did have a slight bump in her troponin of 0.057 but review of the record shows that an elevated troponin is not necessarily unusual for her. After a CTA of the chest done to evaluate an elevated D-dimer and with the venous Doppler of both lower extremities being negative it was decided to discharge her home. Shortly after getting home she developed severe substernal chest pain and numbness in the left arm and she called the ambulance and return to the ER. Timing/Duration: today Activities at Onset: none Quality: fullness Location: substernal Chest Pain Radiation: arm (Left arm left hand is numb) Severity of Pain-Max: moderate Severity of Pain-Current: moderate Modifying Factors: Improves With: nothing Associated Symptoms: denies symptoms Nitro Today/Relief: no nitro taken today Aspirin Treatment Today: no aspirin today Allergies/Adverse Reactions: bee venom protein (honey bee) Adverse Reaction (Severe, Verified 05/09/21 06:32) Anaphylactic Reaction acetaminophen [From Tylenol-Codeine] Adverse Reaction (Mild, Verified 05/09/21 06:32) Nausea codeine [From Tylenol-Codeine] Adverse Reaction (Mild, Verified 05/09/21 06:32) Nausea bandaids Adverse Reaction (Mild, Uncoded 05/09/21 06:32) redness/swelling Home Medications: EPINEPHrine [Epipen 2-Malcolm] 0.3 mg IM UD 01/31/16 [History] Budesonide/Formoterol Fumarate [Symbicort 160-4.5 Mcg Inhaler] 2 puff IH BID 07/05/20 [History] Famotidine 20 mg [Pepcid 20 MG] 20 mg PO BID 07/20/20 [History] Metoprolol Succinate 100 mg [Toprol Xl 100 MG] 100 mg PO DAILY 11/23/20 [History] Albuterol Sulfate [Ventolin Hfa] 1 inh IH Q4-6HPRN PRN 12/01/20 [History] Fentanyl 50Mcg Patch [Duragesic 50MCG Patch] 50 mcg TD UD 05/09/21 [History] Morphine Sulfate [Roxanol] 0.25 ml PO Q2H/PRN PRN 05/09/21 [History] Hx Tetanus, Diphtheria Vaccination/Date Given: Yes Hx Influenza Vaccination/Date Given: Yes Hx Pneumococcal Vaccination/Date Given: Yes Immunizations Up to Date: Yes Travel Risk - International Travel Have you traveled outside of the country in past 3 weeks: No - Coronavirus Screening Are you exhibiting any of the following symptoms?: No Close contact with a COVID-19 positive Pt in past 14-21 Days: No - Vaccine Status Have you recieved a Covid-19 vaccination: Yes [employer]: [employer] - Vaccination Dates Date of 2cond Vaccination (if applicable): december 14, 2020 - Review of Systems Constitutional: No Fever, No Chills Eyes: No Symptoms Ears, Nose, & Throat: No Symptoms Respiratory: Dyspnea, No Cough Cardiac: Chest Pain, Edema, No Syncope Abdominal/Gastrointestinal: No Abdominal Pain, No Nausea, No Vomiting, No Diarrhea Genitourinary Symptoms: No Dysuria Musculoskeletal: No Back Pain, No Neck Pain Skin: No Rash Neurological: No Dizziness, No Focal Weakness, No Sensory Changes Psychological: No Symptoms Endocrine: No Symptoms All Other Systems: Reviewed and Negative - Past Medical History Pertinent Past Medical History: Yes Neurological History: No Pertinent History ENT History: No Pertinent History Cardiac History: High Cholesterol, Hypertension Respiratory History: COPD Endocrine Medical History: No Pertinent History Musculoskeletal History: Rheumatoid Arthritis GI Medical History: Colorectal Cancer, Diverticulosis, GERD, Polyps History: No Pertinent History Psycho-Social History: Anxiety Female Reproductive Disorders: Breast Cancer Other Medical History: BILATERAL Knee replacement 2008, BARIATRIC SURGERY 2009; BREAST CA W/ LUMPECTOMY 2003, colonoscopy, rheumatoid arthritis - Past Surgical History Past Surgical History: Yes Neuro Surgical History: No Pertinent History Cardiac: No Pertinent History Respiratory: No Pertinent History Gastrointestinal: Hernia Repair, Other Genitourinary: No Pertinent History Musculoskeletal: Joint Replacement, Orthopedic Surgery Female Surgical History: Tubal Ligation, Mastectomy Other Surgical History: T&A,Bjorn knee replacement, umbil. hernior.,bariatric surgery, breast cancer with partial mastectomy left, lumpectomy right breast, tubal, colon resection, states CVL port placed and removed - Social History Smoking Status: Former smoker How long have you smoked: 40 yrs Exposure to second hand smoke: Yes Drug Use: none Patient Lives Alone: Yes Significant Family History: heart disease, cancer - Physical Exam General Appearance: mild distress, alert Eye Exam: PERRL/EOMI, eyes nml inspection Ears, Nose, Throat Exam: normal ENT inspection, moist mucous membranes Neck Exam: normal inspection, non-tender, supple, full range of motion Respiratory Exam: normal breath sounds, lungs clear, No respiratory distress Cardiovascular Exam: regular rate/rhythm, normal heart sounds Gastrointestinal/Abdomen Exam: soft, No tenderness, No mass Back Exam: normal inspection, No CVA tenderness, No vertebral tenderness Extremity Exam: normal inspection, normal range of motion Neurologic Exam: alert, oriented x 3, cooperative, normal mood/affect, sensation nml, No motor deficits Skin Exam: normal color, warm, dry SpO2: 93 - Course Nursing assessment & vital signs reviewed: Yes EKG Interpreted by Me: RATE (94), Sinus Rhythm, NORMAL AXIS, NORMAL INTERVALS, NORMAL QRS, Non-specific ST Changes, Other (Prolonged [place] interval but unchanged from her EKG earlier in the day.) - Progress Progress: unchanged Air Movement: fair Blood Culture(s) Obtained: No Antibiotics given: No Discussed with Dr.: Mendez (We discussed the case with Dr. Simental who felt that it would be appropriate to transfer her with a diagnosis of non-STEMI) - Departure Departure Disposition: Transfer Clinical Impression: Non-STEMI (non-ST elevated myocardial infarction), Hypokalemia, Elevated troponin I level Condition: Fair Critical Care Time: Yes Critical Care Time(excluding separately billable procedures): Critical 30-74 mins (30) Referrals: WANDER MONTOYA [Primary Care Provider] - Follow up/PCP as directed <NONI FULTON - Last Filed: 03/09/22 21:07> - Nursing Vital Signs Nursing Vital Signs: Initial Vital Signs Temperature 97.6 F 03/09/22 17:16 Pulse Rate 95 H 03/09/22 17:16 Respiratory Rate 18 03/09/22 17:16 Blood Pressure 156/93 03/09/22 17:16 O2 Sat by Pulse Oximetry 93 L 03/09/22 17:16 Pain Scale Pain Intensity 0 Ordered Tests: Active Orders 24 hr Category Date Time Status IV Insertion STAT Care 03/09/22 17:17 Active CBC W DIFF Stat Lab 03/09/22 17:30 Completed CMP Stat Lab 03/09/22 17:30 Completed TROPONIN Q4H Lab 03/09/22 21:15 Ordered TROPONIN Stat Lab 03/09/22 17:30 Completed Medication Summary Discontinued Medications Generic Name Dose Route Start Last Admin Trade Name Cassius PRN Reason Stop Dose Admin Aspirin 324 mg 03/09/22 17:17 03/09/22 17:23 Aspirin 81 Mg Tab.Chew PO 03/09/22 17:18 324 mg STAT ONE Administration Aspirin Confirm 03/09/22 17:22 Aspirin 81 Mg Tab.Chew Administered 03/09/22 17:23 Dose 324 mg .ROUTE .STK-MED ONE Potassium Bicarbonate 50 meq 03/09/22 18:03 03/09/22 18:05 Potassium Bicarbonate 25 Meq Tab PO 03/09/22 18:04 50 meq STAT ONE Administration Potassium Bicarbonate Confirm 03/09/22 18:04 Potassium Bicarbonate 25 Meq Tab Administered 03/09/22 18:05 Dose 50 meq .ROUTE .STK-MED ONE Lab/Rad Data: Laboratory Result Diagrams 03/09/22 17:30 03/09/22 17:30 Laboratory Results 03/09/22 03/09/22 03/09/22 Range/Units 17:30 17:30 17:30 WBC 6.0 (4.0-10.5) x10^3/uL RBC 4.25 (4.1-5.4) x10^6/uL Hgb 10.5 L (12.0-16.0) g/dL Hct 35.3 (35-47) % MCV 83.1 (78-100) fL MCH 24.7 L (26-32) pg MCHC 29.7 L (32-36) g/dL RDW 14.9 H (11.5-14.0) % Plt Count 208 (150-450) x10^3/uL MPV 9.1 (7.5-11.0) fL Gran % 59.5 (36.0-66.0) % Immature Gran % (Auto) 0.2 (0.00-0.4) % Nucleat RBC Rel Count 0.0 (0.00-0.1) % Eos # (Auto) 0.19 (0-0.5) x10^3/uL Immature Gran # (Auto) 0.01 (0.00-0.03) x10^3u/L Absolute Lymphs (auto) 1.51 (1.0-4.6) x10^3/uL Absolute Monos (auto) 0.69 (0.0-1.3) x10^3/uL Absolute Nucleated RBC 0.00 (0.00-0.01) x10^3u/L Lymphocytes % 25.0 (24.0-44.0) % Monocytes % 11.4 (0.0-12.0) % Eosinophils % 3.1 (0.00-5.0) % Basophils % 0.8 (0.0-0.4) % Absolute Granulocytes 3.59 (1.4-6.9) x10^3/uL Basophils # 0.05 (0-0.4) x10^3/uL Sodium 136 L (137-145) mmol/L Potassium 2.8 L* (3.5-5.1) mmol/L Chloride 98 (98-107) mmol/L Carbon Dioxide 30 (22-30) mmol/L Anion Gap 10.5 (5-15) MEQ/L BUN 15 (7-17) mg/dL Creatinine 0.73 (0.52-1.04) mg/dL Estimated GFR > 60.0 ML/MIN Glucose 115 H (74-106) mg/dL Calcium 8.7 (8.4-10.2) mg/dL Total Bilirubin 0.60 (0.2-1.3) mg/dL AST 31 (14-36) U/L ALT 21 (0-35) U/L Alkaline Phosphatase 97 (38-126) U/L Troponin I 0.067 H* (0.000-0.034) ng/mL Serum Total Protein 6.8 (6.3-8.2) g/dL Albumin 3.7 (3.5-5.0) g/dL - Progress Air Movement: good Progress Note: 03/09/22 21:06 Patient has remained chest pain-free in ER. [facility] did not call back for the bed we have been waiting for last 24 hours. Patient is otherwise totally asymptomatic EKG does not show any EKG changes so we decided to keep patient here and will follow troponins. On the other note patient has always little high elevated troponin for long time looking at the old charts. Will see patient in: hospital (observation) Counseled pt/family regarding: lab results, diagnosis, need for follow-up, rad results - Departure Departure Disposition: Observation
[2022-03-09 21:52] LABS: INFLUENZA A NEGATIVE (NEGATIVE); INFLUENZA B NEGATIVE (NEGATIVE); RESPIRATORY SYNCTIAL VIRUS NEGATIVE (Negative); SARS-CoV-2 Xpert Express NEGATIVE (NEGATIVE)
[2022-03-09] MEDS ORDERED: Zofran 4 MG/2 ML VIAL IV PRN (22:28)
[2022-03-09] MEDS ORDERED: TYLENOL 325 MG PO PRN (22:28)
[2022-03-09] MEDS ORDERED: MILK OF MAGNESIA 30 ML PO PRN (22:28)
[2022-03-09] MEDS ORDERED: MAALOX ES 30 ML UNIT DOSE PO PRN (22:28)
[2022-03-09] MEDS ORDERED: Senokot-S Tablet PO PRN (22:28)
[2022-03-09] MEDS ORDERED: Sodium Chloride 0.9% 500 ML 500 ML IV SCH (22:28)
[2022-03-09] MEDS ORDERED: Sodium Chloride 0.9% 1000 ML 1,000 ML ONE (23:45)
[2022-03-09] MEDS ORDERED: AMITRIPTYLINE 25 MG TABLET PO SCH (23:55)
[2022-03-10] MEDS ORDERED: NEURONTIN ONE (00:02)
[2022-03-10] MEDS: OXYCODONE-ACETAMINOPHEN 10-325 PO SCH ×3 (00:05→15:47)
[2022-03-10] MEDS: NEURONTIN PO SCH ×2 (00:06→00:07)
[2022-03-10 03:24] LABS: Hematocrit 34.1 % (35-47); Mean Cell Volume 84.8 fL (78-100); Mean Corpuscular Hemoglobin 24.9 pg (26-32); Mean Corpuscular Hgb Concent. 29.3 g/dL (32-36); Mean Platelet Volume 9.4 fL (7.5-11.0); Platelet Count 205 x10^3/uL (150-450); Red Blood Count 4.02 x10^6/uL (4.1-5.4); White Blood Count 4.6 x10^3/uL (4.0-10.5)
[2022-03-10 03:42] LABS: ANION GAP 9.2 MEQ/L (5-15); BLOOD UREA NITROGEN 16 mg/dL (7-17); CHLORIDE 98 mmol/L (98-107); Calcium 8.4 mg/dL (8.4-10.2); Carbon Dioxide 32 mmol/L (22-30); Creatinine 1 0.69 mg/dL (0.52-1.04); EST GLOMERULAR FILTRATION RATE > 60.0 ML/MIN; Glucose 126 mg/dL (74-106); SODIUM 136 mmol/L (137-145)
[2022-03-10 03:52] LABS: Potassium 2.9 mmol/L (3.5-5.1); TROPONIN 0.069 ng/mL (0.000-0.034)
[2022-03-10 04:00] LABS: Risk Ratio 4.3
[2022-03-10] MEDS ORDERED: Klor Con PO ONE ×2 (10:01→17:19)
--- NOTE | 2022-03-10 10:05 | PCM.SSS ---
History of Present Illness - Chief Complaint Chief Complaint: chest pain History of Present Illness: is a 72 year old female who presented to the ER with some chest pain that has since resolved and numbness to bilateral fingers, she has chronic neuropathic pain on gabapentin. she has no chest pain, no dyspnea and no numbness, weakness or paresthesias today. - Review of Systems Constitutional: No Fever, No Chills Cardiac: No Chest Pain, No Edema, No Syncope Abdominal/Gastrointestinal: No Abdominal Pain, No Nausea, No Vomiting, No Diarrhea Genitourinary Symptoms: No Dysuria Musculoskeletal: No Back Pain, No Neck Pain Neurological: Parasthesia, No Focal Weakness, No Headache, No Sensory Changes All Other Systems: Reviewed and Negative Medications & Allergies Home Medications: Home Medication List EPINEPHrine [Epipen 2-Malcolm] 0.3 mg IM UD 01/31/16 [History Confirmed 05/09/21] Famotidine 20 mg [Pepcid 20 MG] 20 mg PO BID 07/20/20 [History Confirmed 03/09/22] Metoprolol Succinate 100 mg [Toprol Xl 100 MG] 100 mg PO DAILY 11/23/20 [History Confirmed 03/09/22] Metoclopramide HCl 10 mg [Reglan 10 MG] 10 mg PO TIDWMEALS #30 tablet 03/19/21 [Rx Confirmed 03/09/22] PANTOPRAZOLE 40 mg Tablet [Protonix 40MG Tablet] 40 mg PO DAILY #30 tab 03/24/21 [Rx Confirmed 03/09/22] Sucralfate 1 gm [Carafate 1 GM] 1 g PO ACHS #120 tablet 03/24/21 [Rx Confirmed 03/09/22] Amitriptyline HCl 25 mg [Amitriptyline 25 mg Tablet] 75 mg PO HS 03/09/22 [History Confirmed 03/09/22] Furosemide 40 mg [Lasix 40 MG] 40 mg PO DAILY 03/09/22 [History Confirmed 03/09/22] Gabapentin 300 mg PO QAM 03/09/22 [History Confirmed 03/09/22] Gabapentin 600 mg PO QHS 03/09/22 [History Confirmed 03/09/22] Leflunomide 10 mg PO DAILY 03/09/22 [History Confirmed 03/09/22] Oxycodone HCl/Acetaminophen [Percocet 10-325 mg Tablet] 1 each PO TID 03/09/22 [History Confirmed 03/09/22] Allergies/Adverse Reactions: Allergies Allergy/AdvReac Type Severity Reaction Status Date / Time bee venom protein (honey bee) AdvReac Severe Anaphylactic Verified 05/09/21 06:32 Reaction acetaminophen AdvReac Mild Nausea Verified 05/09/21 06:32 [From Tylenol-Codeine] codeine AdvReac Mild Nausea Verified 05/09/21 06:32 [From Tylenol-Codeine] bandaids AdvReac Mild redness/swe Uncoded 05/09/21 06:32 lling - Past Medical History Past Medical History: Yes Neurological History: No Pertinent History ENT History: No Pertinent History Cardiac History: High Cholesterol, Hypertension Respiratory History: COPD Endocrine Medical History: No Pertinent History Musculoskelatal History: Rheumatoid Arthritis GI Medical History: Colorectal Cancer, Diverticulosis, GERD, Polyps History: No Pertinent History Pyscho-Social History: Anxiety Reproductive Disorders: Breast Cancer Comment: BILATERAL Knee replacement 2008, BARIATRIC SURGERY 2009; BREAST CA W/ LUMPECTOMY 2003, colonoscopy, rheumatoid arthritis - Past Surgical History Past Surgical History: Yes Neuro Surgical History: No Pertinent History Cardiac History: No Pertinent History Respiratory Surgery: No Pertinent History GI Surgical History: Hernia Repair, Other Genitourinary Surgical Hx: No Pertinent History Musculskeletal Surgical Hx: Joint Replacement, Orthopedic Surgery Female Surgical History: Tubal Ligation, Mastectomy Other Surgical History: T&A,Bjorn knee replacement, umbil. hernior.,bariatric surgery, breast cancer with partial mastectomy left, lumpectomy right breast, tubal, colon resection, states CVL port placed and removed - Social History Smoking Status: Former smoker How long have you smoked: 40 yrs Exposure to second hand smoke: Yes Alcohol: None Drug Use: none Significant Family History: heart disease, cancer - Physical Exam Vital Signs: Vital Signs - 24 hr Temp Pulse Resp BP Pulse Ox 03/10/22 07:25 97 F 94 H 18 138/60 94 L 03/10/22 03:55 97.1 F 83 18 131/73 92 L 03/10/22 00:00 96 03/09/22 23:43 97.5 F 94 H 16 167/74 97 03/09/22 22:45 97.5 F 94 H 16 167/74 97 03/09/22 20:28 87 16 141/85 97 03/09/22 19:15 92 H 18 150/93 93 L 03/09/22 19:12 93 L 03/09/22 17:16 97.6 F 95 H 18 156/93 93 L General Appearance: no apparent distress, obese Neurologic Exam: alert, oriented x 3 Respiratory Exam: normal breath sounds, lungs clear, No respiratory distress Cardiovascular Exam: regular rate/rhythm, normal heart sounds, normal peripheral pulses Gastrointestinal/Abdomen Exam: soft, normal bowel sounds, No tenderness, No mass Extremity Exam: normal inspection, normal range of motion, pelvis stable Skin Exam: normal color, warm, dry, No rash Results - Labs Lab/Micro Results: Lab Results-Last 24 Hours 03/09/22 03/09/22 03/09/22 Range/Units 17:30 17:30 17:30 WBC 6.0 (4.0-10.5) x10^3/uL RBC 4.25 (4.1-5.4) x10^6/uL Hgb 10.5 L (12.0-16.0) g/dL Hct 35.3 (35-47) % MCV 83.1 (78-100) fL MCH 24.7 L (26-32) pg MCHC 29.7 L (32-36) g/dL RDW 14.9 H (11.5-14.0) % Plt Count 208 (150-450) x10^3/uL MPV 9.1 (7.5-11.0) fL Gran % 59.5 (36.0-66.0) % Immature Gran % (Auto) 0.2 (0.00-0.4) % Nucleat RBC Rel Count 0.0 (0.00-0.1) % Eos # (Auto) 0.19 (0-0.5) x10^3/uL Immature Gran # (Auto) 0.01 (0.00-0.03) x10^3u/L Absolute Lymphs (auto) 1.51 (1.0-4.6) x10^3/uL Absolute Monos (auto) 0.69 (0.0-1.3) x10^3/uL Absolute Nucleated RBC 0.00 (0.00-0.01) x10^3u/L Lymphocytes % 25.0 (24.0-44.0) % Monocytes % 11.4 (0.0-12.0) % Eosinophils % 3.1 (0.00-5.0) % Basophils % 0.8 (0.0-0.4) % Absolute Granulocytes 3.59 (1.4-6.9) x10^3/uL Basophils # 0.05 (0-0.4) x10^3/uL Sodium 136 L (137-145) mmol/L Potassium 2.8 L* (3.5-5.1) mmol/L Chloride 98 (98-107) mmol/L Carbon Dioxide 30 (22-30) mmol/L Anion Gap 10.5 (5-15) MEQ/L BUN 15 (7-17) mg/dL Creatinine 0.73 (0.52-1.04) mg/dL Estimated GFR > 60.0 ML/MIN Glucose 115 H (74-106) mg/dL Calcium 8.7 (8.4-10.2) mg/dL Magnesium (1.6-2.3) mg/dL Total Bilirubin 0.60 (0.2-1.3) mg/dL AST 31 (14-36) U/L ALT 21 (0-35) U/L Alkaline Phosphatase 97 (38-126) U/L Troponin I 0.067 H* (0.000-0.034) ng/mL Serum Total Protein 6.8 (6.3-8.2) g/dL Albumin 3.7 (3.5-5.0) g/dL Triglycerides (30-150) mg/dL Cholesterol (50-200) mg/dL LDL Cholesterol (30-100) mg/dL HDL Cholesterol (40-60) mg/dL Heart Disease Risk Ratio Influenza Type A Ag (NEGATIVE) Influenza Type B Ag (NEGATIVE) RSV (PCR) (Negative) SARS-CoV-2 (PCR) (NEGATIVE) 03/09/22 03/09/22 03/10/22 Range/Units 21:14 21:50 03:11 WBC (4.0-10.5) x10^3/uL RBC (4.1-5.4) x10^6/uL Hgb (12.0-16.0) g/dL Hct (35-47) % MCV (78-100) fL MCH (26-32) pg MCHC (32-36) g/dL RDW (11.5-14.0) % Plt Count (150-450) x10^3/uL MPV (7.5-11.0) fL Gran % (36.0-66.0) % Immature Gran % (Auto) (0.00-0.4) % Nucleat RBC Rel Count (0.00-0.1) % Eos # (Auto) (0-0.5) x10^3/uL Immature Gran # (Auto) (0.00-0.03) x10^3u/L Absolute Lymphs (auto) (1.0-4.6) x10^3/uL Absolute Monos (auto) (0.0-1.3) x10^3/uL Absolute Nucleated RBC (0.00-0.01) x10^3u/L Lymphocytes % (24.0-44.0) % Monocytes % (0.0-12.0) % Eosinophils % (0.00-5.0) % Basophils % (0.0-0.4) % Absolute Granulocytes (1.4-6.9) x10^3/uL Basophils # (0-0.4) x10^3/uL Sodium (137-145) mmol/L Potassium (3.5-5.1) mmol/L Chloride (98-107) mmol/L Carbon Dioxide (22-30) mmol/L Anion Gap (5-15) MEQ/L BUN (7-17) mg/dL Creatinine (0.52-1.04) mg/dL Estimated GFR ML/MIN Glucose (74-106) mg/dL Calcium (8.4-10.2) mg/dL Magnesium (1.6-2.3) mg/dL Total Bilirubin (0.2-1.3) mg/dL AST (14-36) U/L ALT (0-35) U/L Alkaline Phosphatase (38-126) U/L Troponin I 0.076 H* (0.000-0.034) ng/mL Serum Total Protein (6.3-8.2) g/dL Albumin (3.5-5.0) g/dL Triglycerides 128 (30-150) mg/dL Cholesterol 198 (50-200) mg/dL LDL Cholesterol 137 H (30-100) mg/dL HDL Cholesterol 46 (40-60) mg/dL Heart Disease Risk Ratio 4.3 Influenza Type A Ag NEGATIVE (NEGATIVE) Influenza Type B Ag NEGATIVE (NEGATIVE) RSV (PCR) NEGATIVE (Negative) SARS-CoV-2 (PCR) NEGATIVE (NEGATIVE) 03/10/22 03/10/22 03/10/22 Range/Units 03:11 03:11 07:00 WBC 4.6 (4.0-10.5) x10^3/uL RBC 4.02 L (4.1-5.4) x10^6/uL Hgb 10.0 L (12.0-16.0) g/dL Hct 34.1 L (35-47) % MCV 84.8 (78-100) fL MCH 24.9 L (26-32) pg MCHC 29.3 L (32-36) g/dL RDW 15.0 H (11.5-14.0) % Plt Count 205 (150-450) x10^3/uL MPV 9.4 (7.5-11.0) fL Gran % (36.0-66.0) % Immature Gran % (Auto) (0.00-0.4) % Nucleat RBC Rel Count (0.00-0.1) % Eos # (Auto) (0-0.5) x10^3/uL Immature Gran # (Auto) (0.00-0.03) x10^3u/L Absolute Lymphs (auto) (1.0-4.6) x10^3/uL Absolute Monos (auto) (0.0-1.3) x10^3/uL Absolute Nucleated RBC (0.00-0.01) x10^3u/L Lymphocytes % (24.0-44.0) % Monocytes % (0.0-12.0) % Eosinophils % (0.00-5.0) % Basophils % (0.0-0.4) % Absolute Granulocytes (1.4-6.9) x10^3/uL Basophils # (0-0.4) x10^3/uL Sodium 136 L (137-145) mmol/L Potassium 2.9 L* (3.5-5.1) mmol/L Chloride 98 (98-107) mmol/L Carbon Dioxide 32 H (22-30) mmol/L Anion Gap 9.2 (5-15) MEQ/L BUN 16 (7-17) mg/dL Creatinine 0.69 (0.52-1.04) mg/dL Estimated GFR > 60.0 ML/MIN Glucose 126 H (74-106) mg/dL Calcium 8.4 (8.4-10.2) mg/dL Magnesium 1.7 (1.6-2.3) mg/dL Total Bilirubin (0.2-1.3) mg/dL AST (14-36) U/L ALT (0-35) U/L Alkaline Phosphatase (38-126) U/L Troponin I 0.069 H* (0.000-0.034) ng/mL Serum Total Protein (6.3-8.2) g/dL Albumin (3.5-5.0) g/dL Triglycerides (30-150) mg/dL Cholesterol (50-200) mg/dL LDL Cholesterol (30-100) mg/dL HDL Cholesterol (40-60) mg/dL Heart Disease Risk Ratio Influenza Type A Ag (NEGATIVE) Influenza Type B Ag (NEGATIVE) RSV (PCR) (Negative) SARS-CoV-2 (PCR) (NEGATIVE) - Other Procedures and Tests Respiratory Therapy 03/11/22 05:00 EKG DAILY 03/12/22 05:00 EKG DAILY 03/13/22 05:00 EKG DAILY Assessment/Plan (1) Chest pain Current Visit: Yes Status: Acute Assessment & Plan: symptoms have resolved, she had a minimally elevated troponin on arrival, no bed apparently was available per ER for transfer, she was admitted to correct potassium. troponin is trending down and likely noncardiac elevation Code(s): R07.9 - CHEST PAIN, UNSPECIFIED (2) Hypokalemia Current Visit: Yes Status: Chronic Code(s): E87.6 - HYPOKALEMIA (3) Colon cancer Current Visit: No Status: Chronic Qualifiers: Colon location: overlapping sites Qualified Code(s): C18.8 - Malignant neoplasm of overlapping sites of colon Hospital Summary - Vitals & Intake/Output Vital Signs: Vital Signs Temperature 97 F 03/10/22 07:25 Pulse Rate 94 H 03/10/22 07:25 Respiratory Rate 18 03/10/22 07:25 Blood Pressure 138/60 03/10/22 07:25 O2 Sat by Pulse Oximetry 94 L 03/10/22 07:25 Intake & Output: Intake & Output 03/07/22 03/08/22 03/09/22 03/10/22 11:59 11:59 11:59 11:59 Intake Total 1136 Balance 1136 Weight 116.5 kg - Lab Result Diagrams: 03/10/22 03:11 03/10/22 03:11 Lab Results-Last 24 Hrs: Lab Results-Last 24 Hours 03/09/22 03/09/22 03/09/22 Range/Units 17:30 17:30 17:30 WBC 6.0 (4.0-10.5) x10^3/uL RBC 4.25 (4.1-5.4) x10^6/uL Hgb 10.5 L (12.0-16.0) g/dL Hct 35.3 (35-47) % MCV 83.1 (78-100) fL MCH 24.7 L (26-32) pg MCHC 29.7 L (32-36) g/dL RDW 14.9 H (11.5-14.0) % Plt Count 208 (150-450) x10^3/uL MPV 9.1 (7.5-11.0) fL Gran % 59.5 (36.0-66.0) % Immature Gran % (Auto) 0.2 (0.00-0.4) % Nucleat RBC Rel Count 0.0 (0.00-0.1) % Eos # (Auto) 0.19 (0-0.5) x10^3/uL Immature Gran # (Auto) 0.01 (0.00-0.03) x10^3u/L Absolute Lymphs (auto) 1.51 (1.0-4.6) x10^3/uL Absolute Monos (auto) 0.69 (0.0-1.3) x10^3/uL Absolute Nucleated RBC 0.00 (0.00-0.01) x10^3u/L Lymphocytes % 25.0 (24.0-44.0) % Monocytes % 11.4 (0.0-12.0) % Eosinophils % 3.1 (0.00-5.0) % Basophils % 0.8 (0.0-0.4) % Absolute Granulocytes 3.59 (1.4-6.9) x10^3/uL Basophils # 0.05 (0-0.4) x10^3/uL Sodium 136 L (137-145) mmol/L Potassium 2.8 L* (3.5-5.1) mmol/L Chloride 98 (98-107) mmol/L Carbon Dioxide 30 (22-30) mmol/L Anion Gap 10.5 (5-15) MEQ/L BUN 15 (7-17) mg/dL Creatinine 0.73 (0.52-1.04) mg/dL Estimated GFR > 60.0 ML/MIN Glucose 115 H (74-106) mg/dL Calcium 8.7 (8.4-10.2) mg/dL Magnesium (1.6-2.3) mg/dL Total Bilirubin 0.60 (0.2-1.3) mg/dL AST 31 (14-36) U/L ALT 21 (0-35) U/L Alkaline Phosphatase 97 (38-126) U/L Troponin I 0.067 H* (0.000-0.034) ng/mL Serum Total Protein 6.8 (6.3-8.2) g/dL Albumin 3.7 (3.5-5.0) g/dL Triglycerides (30-150) mg/dL Cholesterol (50-200) mg/dL LDL Cholesterol (30-100) mg/dL HDL Cholesterol (40-60) mg/dL Heart Disease Risk Ratio Influenza Type A Ag (NEGATIVE) Influenza Type B Ag (NEGATIVE) RSV (PCR) (Negative) SARS-CoV-2 (PCR) (NEGATIVE) 03/09/22 03/09/22 03/10/22 Range/Units 21:14 21:50 03:11 WBC (4.0-10.5) x10^3/uL RBC (4.1-5.4) x10^6/uL Hgb (12.0-16.0) g/dL Hct (35-47) % MCV (78-100) fL MCH (26-32) pg MCHC (32-36) g/dL RDW (11.5-14.0) % Plt Count (150-450) x10^3/uL MPV (7.5-11.0) fL Gran % (36.0-66.0) % Immature Gran % (Auto) (0.00-0.4) % Nucleat RBC Rel Count (0.00-0.1) % Eos # (Auto) (0-0.5) x10^3/uL Immature Gran # (Auto) (0.00-0.03) x10^3u/L Absolute Lymphs (auto) (1.0-4.6) x10^3/uL Absolute Monos (auto) (0.0-1.3) x10^3/uL Absolute Nucleated RBC (0.00-0.01) x10^3u/L Lymphocytes % (24.0-44.0) % Monocytes % (0.0-12.0) % Eosinophils % (0.00-5.0) % Basophils % (0.0-0.4) % Absolute Granulocytes (1.4-6.9) x10^3/uL Basophils # (0-0.4) x10^3/uL Sodium (137-145) mmol/L Potassium (3.5-5.1) mmol/L Chloride (98-107) mmol/L Carbon Dioxide (22-30) mmol/L Anion Gap (5-15) MEQ/L BUN (7-17) mg/dL Creatinine (0.52-1.04) mg/dL Estimated GFR ML/MIN Glucose (74-106) mg/dL Calcium (8.4-10.2) mg/dL Magnesium (1.6-2.3) mg/dL Total Bilirubin (0.2-1.3) mg/dL AST (14-36) U/L ALT (0-35) U/L Alkaline Phosphatase (38-126) U/L Troponin I 0.076 H* (0.000-0.034) ng/mL Serum Total Protein (6.3-8.2) g/dL Albumin (3.5-5.0) g/dL Triglycerides 128 (30-150) mg/dL Cholesterol 198 (50-200) mg/dL LDL Cholesterol 137 H (30-100) mg/dL HDL Cholesterol 46 (40-60) mg/dL Heart Disease Risk Ratio 4.3 Influenza Type A Ag NEGATIVE (NEGATIVE) Influenza Type B Ag NEGATIVE (NEGATIVE) RSV (PCR) NEGATIVE (Negative) SARS-CoV-2 (PCR) NEGATIVE (NEGATIVE) 03/10/22 03/10/22 03/10/22 Range/Units 03:11 03:11 07:00 WBC 4.6 (4.0-10.5) x10^3/uL RBC 4.02 L (4.1-5.4) x10^6/uL Hgb 10.0 L (12.0-16.0) g/dL Hct 34.1 L (35-47) % MCV 84.8 (78-100) fL MCH 24.9 L (26-32) pg MCHC 29.3 L (32-36) g/dL RDW 15.0 H (11.5-14.0) % Plt Count 205 (150-450) x10^3/uL MPV 9.4 (7.5-11.0) fL Gran % (36.0-66.0) % Immature Gran % (Auto) (0.00-0.4) % Nucleat RBC Rel Count (0.00-0.1) % Eos # (Auto) (0-0.5) x10^3/uL Immature Gran # (Auto) (0.00-0.03) x10^3u/L Absolute Lymphs (auto) (1.0-4.6) x10^3/uL Absolute Monos (auto) (0.0-1.3) x10^3/uL Absolute Nucleated RBC (0.00-0.01) x10^3u/L Lymphocytes % (24.0-44.0) % Monocytes % (0.0-12.0) % Eosinophils % (0.00-5.0) % Basophils % (0.0-0.4) % Absolute Granulocytes (1.4-6.9) x10^3/uL Basophils # (0-0.4) x10^3/uL Sodium 136 L (137-145) mmol/L Potassium 2.9 L* (3.5-5.1) mmol/L Chloride 98 (98-107) mmol/L Carbon Dioxide 32 H (22-30) mmol/L Anion Gap 9.2 (5-15) MEQ/L BUN 16 (7-17) mg/dL Creatinine 0.69 (0.52-1.04) mg/dL Estimated GFR > 60.0 ML/MIN Glucose 126 H (74-106) mg/dL Calcium 8.4 (8.4-10.2) mg/dL Magnesium 1.7 (1.6-2.3) mg/dL Total Bilirubin (0.2-1.3) mg/dL AST (14-36) U/L ALT (0-35) U/L Alkaline Phosphatase (38-126) U/L Troponin I 0.069 H* (0.000-0.034) ng/mL Serum Total Protein (6.3-8.2) g/dL Albumin (3.5-5.0) g/dL Triglycerides (30-150) mg/dL Cholesterol (50-200) mg/dL LDL Cholesterol (30-100) mg/dL HDL Cholesterol (40-60) mg/dL Heart Disease Risk Ratio Influenza Type A Ag (NEGATIVE) Influenza Type B Ag (NEGATIVE) RSV (PCR) (Negative) SARS-CoV-2 (PCR) (NEGATIVE) - Procedures and Test Procedures and Tests throughout Hospitalization: Therapy Orders & Screens 03/09/22 22:28 EKG [id number],QAMX3,PRN Comment: 03/10/22 05:00 EKG DAILY Comment: Diagnosis: chest pain 03/11/22 05:00 EKG DAILY Comment: Diagnosis: chest pain 03/12/22 05:00 EKG DAILY Comment: Diagnosis: chest pain 03/13/22 05:00 EKG DAILY Comment: Diagnosis: chest pain - Discharge Disposition: Home, Self-Care Condition: Good Prescriptions: Continue EPINEPHrine [Epipen 2-Malcolm] 0.3 mg IM UD Famotidine 20 mg [Pepcid 20 MG] 20 mg PO BID Metoprolol Succinate 100 mg [Toprol Xl 100 MG] 100 mg PO DAILY Metoclopramide HCl 10 mg [Reglan 10 MG] 10 mg PO TIDWMEALS #30 tablet Sucralfate 1 gm [Carafate 1 GM] 1 g PO ACHS #120 tablet PANTOPRAZOLE 40 mg Tablet [Protonix 40MG Tablet] 40 mg PO DAILY #30 tab Amitriptyline HCl 25 mg [Amitriptyline 25 mg Tablet] 75 mg PO HS Leflunomide 10 mg PO DAILY Gabapentin 300 mg PO QAM Furosemide 40 mg [Lasix 40 MG] 40 mg PO DAILY Oxycodone HCl/Acetaminophen [Percocet 10-325 mg Tablet] 1 each PO TID Gabapentin 600 mg PO QHS Follow up with: WANDER MONTOYA [Primary Care Provider] -
[2022-03-10] MEDS: POTASSIUM CHLORIDE 20 mEq IN WATER 100ML 20 MEQ/100 ML BAG IV SCH ×2 (10:30→12:22)
[2022-03-10] MEDS ORDERED: Protonix 40MG Tablet PO SCH (11:00)
[2022-03-10] MEDS ORDERED: Pepcid 20 MG PO SCH (11:00)
[2022-03-10] MEDS ORDERED: Toprol Xl 100 MG PO SCH (11:00)
[2022-03-10] MEDS ORDERED: NEURONTIN PO SCH (11:00)
[2022-03-10] MEDS: Reglan 10 MG PO SCH ×2 (11:48→16:29)
[2022-03-10] MEDS: Carafate 1 GM PO SCH ×2 (11:48→15:47)
[2022-03-10 16:25] VITALS: BP 124/56; PULSE 88; O2SAT 91
== END 2022-03-10 17:44 | disposition home or self-care (01) ==
LOC: ED 17:09 → MED SURG 22:24
PROVIDERS: ADMIT Family Medicine; ATTEND Family Medicine
DX: R07.9 Chest pain, unspecified (principal); E87.6 Hypokalemia; C18.8 Malignant neoplasm of overlapping sites of colon; I10 Essential (primary) hypertension; E78.00 Pure hypercholesterolemia, unspecified; Z85.3 Personal history of malignant neoplasm of breast; Z79.899 Other long term (current) drug therapy; Z20.828 Contact with and (suspected) exposure to other viral communicable diseases
CPT/HCPCS: 0241U; 36000; 36415; 80048; 80053; 80061; 83721; 83735; 84132; 84484; 85025; 85027; 93005; 93268; 99285; 99291; G0378; J1642; J3480; A9270-GY

== ENCOUNTER 2022-10-10 14:55 | Day surgery (SDC) | payer MEDICARE ==
[2012-05-22 11:43] VITALS: BP 117/51
[2022-10-10] MEDS ORDERED: Sodium Chloride 0.9(Preservative Free) 10 ML IJ ONE (14:56)
[2022-10-10] MEDS ORDERED: LIDOCAINE HCL 1% 50 MG/5 ML VL PF IJ ONE (14:56)
[2022-10-10] MEDS ORDERED: DIPRIVAN 200 MG/20 ML IV ONE ×4 (17:20→18:38)
[2022-10-10] MEDS ORDERED: BACIGUENT 30 GM ONE (17:23)
[2022-10-10] MEDS ORDERED: Lactated Ringers 1,000 ML IV ONE ×2 (18:37→18:49)
--- NOTE | 2022-10-10 19:15 | XRAY ---
Indication: Spinal stimulator trial. Intraoperative fluoroscopy provided for 6 minute 39 seconds. 7 digital spot images submitted for interpretation initially demonstrates posterior introducer needle tip at L2. Ultimately a single epidural stimulator lead inserted with tip positioned mid thoracic level, approximately inferior T6 level. Correlate with intraoperative findings/report.
--- NOTE | 2022-10-11 09:00 | XRAY ---
Six minutes and 39 seconds of fluoroscopy was used in surgery for a spinal cord stimulator trial.
== END 2022-10-10 19:15 | disposition home or self-care (01) ==
LOC: SDC-PAIN 14:55
PROVIDERS: ATTEND Psychiatry & Neurology Pain Medicine
DX: M96.1 Postlaminectomy syndrome, not elsewhere classified (principal); Z79.899 Other long term (current) drug therapy
CPT/HCPCS: 01941; 63650; 72100; 77002; 93005; 99100; C1778; J1642; J2001; J2704; L0120; A9270-GY

== ENCOUNTER 2022-11-07 11:46 | Day surgery (SDC) | payer MEDICARE ==
[2012-05-22 11:43] VITALS: BP 117/51
[2022-11-07] MEDS ORDERED: Depo-Medrol 40 MG/ML IM ONE (11:47)
[2022-11-07] MEDS ORDERED: BUPIVACAINE 0.5% VIAL IJ ONE (11:47)
[2022-11-07] MEDS ORDERED: LIDOCAINE HCL 1% 50 MG/5 ML VL PF IJ ONE (11:47)
[2022-11-07] MEDS ORDERED: DIPRIVAN 200 MG/20 ML IV ONE (14:12)
[2022-11-07] MEDS ORDERED: Lactated Ringers 1,000 ML IV ONE (15:08)
--- NOTE | 2022-11-07 16:27 | XRAY ---
Indication: Left L4-S1 RFA. Intraoperative fluoroscopy provided for 29 seconds. 4 digital spot images submitted for interpretation demonstrates posterior needle tips projecting over the expected left L4-S1 nerve roots. Correlate with intraoperative findings/report.
--- NOTE | 2022-11-07 16:28 | XRAY ---
29 seconds of fluoroscopy was used in surgery for a left L4-S1 RFA.
== END 2022-11-07 14:50 | disposition home or self-care (01) ==
LOC: SDC-PAIN 11:46
PROVIDERS: ATTEND Psychiatry & Neurology Pain Medicine
DX: M47.816 Spondylosis without myelopathy or radiculopathy, lumbar region (principal); Z79.899 Other long term (current) drug therapy
CPT/HCPCS: 64635; 64636; 72100; 77002; 99100; J1030; J1642; J2001; J2704

== ENCOUNTER 2022-11-21 10:58 | Day surgery (SDC) | payer MEDICARE ==
[2012-05-22 11:43] VITALS: BP 117/51
[2022-11-21] MEDS ORDERED: LIDOCAINE HCL 1% 50 MG/5 ML VL PF IJ ONE (10:59)
[2022-11-21] MEDS ORDERED: BUPIVACAINE 0.5% VIAL IJ ONE (10:59)
[2022-11-21] MEDS ORDERED: Depo-Medrol 40 MG/ML IM ONE (10:59)
[2022-11-21] MEDS ORDERED: DIPRIVAN 200 MG/20 ML IV ONE (12:37)
[2022-11-21] MEDS ORDERED: Lactated Ringers 1,000 ML IV ONE (13:03)
--- NOTE | 2022-11-21 14:28 | XRAY ---
Indication: Right L4-S1 RFA. Intraoperative fluoroscopy provider 25 seconds. 3 digital spot image submitted for interpretation demonstrates posterior needle tips projecting over the expected right L4-S1 nerve roots. Correlate with intraoperative findings/report.
--- NOTE | 2022-11-21 15:13 | XRAY ---
25 seconds of fluoroscopy was used in surgery for a right L4-S1 RFA.
== END 2022-11-21 13:06 | disposition home or self-care (01) ==
LOC: SDC-PAIN 10:58
PROVIDERS: ATTEND Psychiatry & Neurology Pain Medicine
DX: M47.816 Spondylosis without myelopathy or radiculopathy, lumbar region (principal); Z79.899 Other long term (current) drug therapy
CPT/HCPCS: 64635; 64636; 72100; 77002; 99100; J1030; J1642; J2001; J2704

== ENCOUNTER 2023-09-22 12:19 | Emergency (ER) | payer MEDICARE ==
[2023-09-22] MEDS ORDERED: XYLOCAINE 1% HCL 20 ML MDV IJ ONE (12:20)
[2023-09-22 12:41] VITALS: BP 96/45; PULSE 81; TEMP 97.2; O2SAT 96
[2023-09-22 13:06] LABS: Absolute Neutrophil Ct (ANC) 6.54 x10^3/uL (1.4-6.9); BASOPHIL % 0.5 % (0.0-0.4); Basophil (Absolute #) 0.04 x10^3/uL (0-0.4); Eosinophil % 1.9 % (0.00-5.0); Eosinophil (Absolute #) 0.16 x10^3/uL (0-0.5); Hematocrit 34.7 % (35-47); Hemoglobin 10.6 g/dL (12.0-16.0); IMMATURE GRAN # 0.04 x10^3u/L (0.00-0.03); IMMATURE GRAN % 0.5 % (0.00-0.4); Lymphocyte (Absolute #) 1.15 x10^3/uL (1.0-4.6); Lymphocytes % 13.6 % (24.0-44.0); Mean Cell Volume 88.5 fL (78-100); Mean Corpuscular Hgb Concent. 30.5 g/dL (32-36); Mean Platelet Volume 9.7 fL (7.5-11.0); Monocyte (Absolute #) 0.53 x10^3/uL (0.0-1.3); Monocytes % 6.3 % (0.0-12.0); Neutrophil % 77.2 % (36.0-66.0); Platelet Count 175 x10^3/uL (150-450); Red Blood Count 3.92 x10^6/uL (4.1-5.4); Red Cell Distribution Width 15.5 % (11.5-14.0); White Blood Count 8.5 x10^3/uL (4.0-10.5)
--- NOTE | 2023-09-22 13:19 | ERPHSYRPT ---
- History of Present Illness Time Seen by Provider: 09/22/23 13:16 Source: patient Exam Limitations: no limitations Patient Subjective Stated Complaint: left lower leg swollen and red- appears to be cellulitis Triage Nursing Assessment: Pt brought to the ER by her daughter, hypotensive, rates leg pain as 4/10, redness began on Saturday and has developed a small scab/hole in the middle, pt states that the darker purple area she had a bruise this past week and unsure how she received it, pulses normal, skin n/w/d, no difficulty with breathing, doesn't appear to be in any distress Physician History: Patient is 73-year-old female with significant past medical history of psoriatic arthritis rheumatoid arthritis hypertension was in her usual state of health started having red blotchy spot on her left leg extending from anterior knee to anterior ankle and on the left seen part of the leg. It started with small radiating knobby test.. Patient denies any fever chills nausea vomiting or same type of rash anywhere else. Patient is getting infusion for her rheumatoid arthritis and psoriatic arthritis. Method of Injury: unknown Occurred: days ago (Two days) Severity of Pain-Max: none Severity of Pain-Current: none Modifying Factors: Improves With: nothing Associated Symptoms: none Body Map: 1 - area of rash, patechiea Allergies/Adverse Reactions: bee venom protein (honey bee) Adverse Reaction (Severe, Verified 09/22/23 12:42) Anaphylactic Reaction acetaminophen [From Tylenol-Codeine] Adverse Reaction (Mild, Verified 09/22/23 12:42) Nausea codeine [From Tylenol-Codeine] Adverse Reaction (Mild, Verified 09/22/23 12:42) Nausea bandaids Adverse Reaction (Mild, Uncoded 09/22/23 12:42) redness/swelling Home Medications: Famotidine 20 mg [Pepcid 20 MG] 20 mg PO BID 07/20/20 [History] Metoprolol Succinate 100 mg [Toprol Xl 100 MG] 100 mg PO DAILY 11/23/20 [History] Amitriptyline HCl 25 mg [Amitriptyline 25 mg Tablet] 75 mg PO TID 03/09/22 [History] Furosemide 40 mg [Lasix 40 MG] 40 mg PO DAILY 03/09/22 [History] Gabapentin 300 mg PO TID 03/09/22 [History] Leflunomide 10 mg PO DAILY 03/09/22 [History] Dupilumab [Dupixent Pen] 300 mg SQ UD 12/05/22 [History] Fluticasone/Salmeterol [Advair 100-50 Diskus] 1 blist IH DAILY 12/05/22 [History] Cyanocobalamin (Vitamin B-12) [Vitamin B-12] 500 mcg PO DAILY 09/22/23 [History] Potassium Chloride Tab* [Klor Con] 20 meq PO BID 09/22/23 [History] Sucralfate 1 gm [Carafate 1 GM] 1 g PO TID 09/22/23 [History] Hx Tetanus, Diphtheria Vaccination/Date Given: No Hx Influenza Vaccination/Date Given: Yes Hx Pneumococcal Vaccination/Date Given: Yes Travel Risk - International Travel Have you traveled outside of the country in past 3 weeks: No - Coronavirus Screening Are you exhibiting any of the following symptoms?: No Close contact with a COVID-19 positive Pt in past 14-21 Days: No - Vaccine Status Have you recieved a Covid-19 vaccination: Yes [employer]: [place] - Vaccination Dates Date of 2cond Vaccination (if applicable): december 14, 2020 - Review of Systems Constitutional: No Fever, No Chills Eyes: No Symptoms Ears, Nose, & Throat: No Symptoms Respiratory: No Cough, No Dyspnea Cardiac: No Chest Pain, No Edema, No Syncope Abdominal/Gastrointestinal: No Abdominal Pain, No Nausea, No Vomiting, No Diarrhea Genitourinary Symptoms: No Dysuria Musculoskeletal: No Back Pain, No Neck Pain Skin: Cellulitis, Rash, Skin Lesions Neurological: No Dizziness, No Focal Weakness, No Sensory Changes Psychological: No Symptoms Endocrine: No Symptoms All Other Systems: Reviewed and Negative - Past Medical History Pertinent Past Medical History: Yes Neurological History: No Pertinent History ENT History: No Pertinent History Cardiac History: High Cholesterol, Hypertension Respiratory History: COPD Endocrine Medical History: No Pertinent History Musculoskeletal History: Rheumatoid Arthritis GI Medical History: Colorectal Cancer, Diverticulosis, GERD, Polyps History: No Pertinent History Psycho-Social History: Anxiety Female Reproductive Disorders: Breast Cancer Other Medical History: BILATERAL Knee replacement 2008, BARIATRIC SURGERY 2009; BREAST CA W/ LUMPECTOMY 2003, colonoscopy, rheumatoid arthritis - Past Surgical History Past Surgical History: Yes Neuro Surgical History: No Pertinent History Cardiac: No Pertinent History Respiratory: No Pertinent History Gastrointestinal: Hernia Repair, Other Genitourinary: No Pertinent History Musculoskeletal: Joint Replacement, Orthopedic Surgery Female Surgical History: Tubal Ligation, Mastectomy Other Surgical History: T&A,Bjorn knee replacement, umbil. hernior.,bariatric surgery, breast cancer with partial mastectomy left, lumpectomy right breast, tubal, colon resection, states CVL port placed and removed - Social History Smoking Status: Former smoker How long have you smoked: 40 yrs Exposure to second hand smoke: Yes Drug Use: none Patient Lives Alone: Yes Significant Family History: heart disease, cancer - Nursing Vital Signs Nursing Vital Signs: Initial Vital Signs Temperature 97.2 F 09/22/23 12:31 Pulse Rate 81 09/22/23 12:31 Blood Pressure 96/45 09/22/23 12:31 O2 Sat by Pulse Oximetry 96 09/22/23 12:31 Pain Scale Pain Intensity 4 - Physical Exam General Appearance: alert Eyes, Ears, Nose, Throat Exam: moist mucous membranes Neck Exam: non-tender, supple Cardiovascular/Respiratory Exam: chest non-tender, normal breath sounds, regular rate/rhythm, no respiratory distress Gastrointestinal/Abdominal Exam: non-tender, guarding Back Exam: normal inspection, No vertebral tenderness Legs Exam: left leg: other (rash) Neuro/Tendon Exam: normal sensation, normal motor functions Mental Status Exam: alert, oriented x 3, cooperative Skin Exam: normal color, warm, dry SpO2: 96 - Course Nursing assessment & vital signs reviewed: Yes Ordered Tests: Active Orders 24 hr Category Date Time Status CBC W DIFF Stat Lab 09/22/23 13:00 Completed CMP Stat Lab 09/22/23 13:00 Completed PROTIME WITH INR Stat Lab 09/22/23 13:00 Completed PTT Stat Lab 09/22/23 13:00 Completed Lab/Rad Data: Laboratory Result Diagrams 09/22/23 13:00 09/22/23 13:00 Laboratory Results 09/22/23 09/22/23 09/22/23 Range/Units 13:00 13:00 13:00 WBC 8.5 (4.0-10.5) x10^3/uL RBC 3.92 L (4.1-5.4) x10^6/uL Hgb 10.6 L (12.0-16.0) g/dL Hct 34.7 L (35-47) % MCV 88.5 (78-100) fL MCH 27.0 (26-32) pg MCHC 30.5 L (32-36) g/dL RDW 15.5 H (11.5-14.0) % Plt Count 175 (150-450) x10^3/uL MPV 9.7 (7.5-11.0) fL Gran % 77.2 H (36.0-66.0) % Immature Gran % (Auto) 0.5 H (0.00-0.4) % Nucleat RBC Rel Count 0.0 (0.00-0.1) % Eos # (Auto) 0.16 (0-0.5) x10^3/uL Immature Gran # (Auto) 0.04 H (0.00-0.03) x10^3u/L Absolute Lymphs (auto) 1.15 (1.0-4.6) x10^3/uL Absolute Monos (auto) 0.53 (0.0-1.3) x10^3/uL Absolute Nucleated RBC 0.00 (0.00-0.01) x10^3u/L Lymphocytes % 13.6 L (24.0-44.0) % Monocytes % 6.3 (0.0-12.0) % Eosinophils % 1.9 (0.00-5.0) % Basophils % 0.5 (0.0-0.4) % Absolute Granulocytes 6.54 (1.4-6.9) x10^3/uL Basophils # 0.04 (0-0.4) x10^3/uL PT 10.1 (9.4-12.5) SECONDS INR 0.92 (0.8-3.0) APTT 24.2 L (25.1-36.5) SECONDS Sodium 136 L (137-145) mmol/L Potassium 3.4 L (3.5-5.1) mmol/L Chloride 111 H (98-107) mmol/L Carbon Dioxide 21 L (22-30) mmol/L Anion Gap 7.4 (5-15) MEQ/L BUN 15 (7-17) mg/dL Creatinine 0.62 (0.52-1.04) mg/dL Estimated GFR 92.8 ML/MIN Glucose 99 (74-106) mg/dL Calcium 8.4 (8.4-10.2) mg/dL Total Bilirubin 0.20 (0.2-1.3) mg/dL AST 22 (14-36) U/L ALT 18 (0-35) U/L Alkaline Phosphatase 80 (38-126) U/L Serum Total Protein 6.1 L (6.3-8.2) g/dL Albumin 3.6 (3.5-5.0) g/dL - Progress Progress: unchanged Counseled pt/family regarding: lab results, diagnosis, need for follow-up Medical Desision Making - Independent Historian Additional History obtained from: Family - Diagnostic Testing Diagnostic test were ordered, analyzed, and reviewed by me: Yes Radiological Interpretation: Reviewed by me - Risk of complications Minimal Risk: Minimal risk of morbidity Low Risk: Low risk of morbidity from additional dx testing or treatment - Departure Departure Disposition: Home Clinical Impression: Cellulitis Qualifiers: Site of cellulitis: extremity Site of cellulitis of extremity: lower extremity Laterality: left Qualified Code(s): L03.116 - Cellulitis of left lower limb Rheumatoid arthritis Qualifiers: Rheumatoid arthritis location: multiple sites Rheumatoid factor presence: with rheumatoid factor Qualified Code(s): M05.79 - Rheumatoid arthritis with rheumato id factor of multiple sites without organ or systems involvement Condition: Stable Critical Care Time: No Referrals: WANDER MONTOYA [Primary Care Provider] - Follow Up with PCP/3 days Instructions: Cellulitis (Skin Infection), Adult ED Additional Instructions: Discharge/Care Plan JEREMIAH CONCEPCION was seen on 09/22/23 in the Emergency Room. The patient was counseled regarding Diagnosis,Lab results, Imaging studies, need for follow up and when to return to the Emergency Room. Prescriptions given: Discharge Note I have spoken with the patient and/or caregivers. I have explained the patient's condition, diagnosis and treatment plan based on the information available to me at this time. I have answered the patient's and/or caregiver's questions and addressed any concerns. The patient and/or caregivers have as good understanding of the patient's diagnosis, condition and treatment plan as can be expected at this point. The vital signs have been stable. The patient's condition is stable and appropriate for discharge from the emergency department. The patient will pursue further outpatient evaluation with the primary care physician or other designated or consulting physician as outlined in the discharge instructions. The patient and/or caregivers are agreeable to this plan of care and follow-up instructions have been explained in detail. The patient and/or caregivers have received these instruction. The patient/and or caregivers are aware that any significant change in condition or worsening of symptoms should prompt an immediate return to this or the closest emergency department or call 911. CARLENEJEREMIAH Pittman was seen on 09/22/23 n the Emergency Room. At that time you were treated for an emergent condition, during your visit Laboratory, Radiology and/or other procedures may have been ordered. It is very important that you follow-up with your Primary Care Physician WANDER MONTOYA within the next 24-48 hours to review your Emergency Room visit and the final results of testing that was ordered. Some test results such as Urine Cultures, Blood Cultures, and other cultures if ordered will not be finalized for 24-48 hours. If you do not have a Primary Care Provider please call the medical records department at [phone] ext [phone] to obtain a copy of your results or you may sign into our patient portal to obtain these results by visiting us @ [email or web address] and completing the following steps: 1. Click on the Patient Portal link 2. Click the Patient Self Enrollment Link to complete the enrollment form and entering your 3. Once the enrollment form is completed you will receive an email with a temporary ID and password at the email address you provided. 4. Next choose a user name and password. Your user name must be at least 4 characters long and your password must be at least 4 characters long. 5. Choose a security question from the list and provide your answer to the question. If you already have signed into the Health Portal you may access your Health Care Information 25/02 by the following steps: 1. Login to our website @ [email or web address] 2. Enter your original user name and password. FAQS The [facility] Health Portal is an online tool that contains your Lab Results, Radiology Reports, Visit History, Discharge Instructions and Health Summary Lab and Radiology Results will not be available for 72 hours on the portal. The Portal is a secure site, passwords are encryted and URLs are re-written so they cannot be copied and pasted. You and authorized family members are the only ones who can access your Portal. Also there is a timeout feature that protects your information if you leave the Portal page open. If you have technical difficulty please use the Contact Us link on the page this will allow you to submit any questions you have regarding the Portal or you may contact the Medical Record Department at [phone] ext [phone]. Prescriptions: Cefdinir 300 mg PO BID #20 cap
[2023-09-22 13:20] LABS: ALBUMIN 3.6 g/dL (3.5-5.0); BILIRUBIN,TOTAL 0.2 mg/dL (0.2-1.3); Calcium 8.4 mg/dL (8.4-10.2); Creatinine 1 0.62 mg/dL (0.52-1.04); EST GLOMERULAR FILTRATION RATE 92.8 ML/MIN; Total Protein 6.1 g/dL (6.3-8.2)
[2023-09-22 13:21] LABS: INR 0.92 (0.8-3.0); PROTIME 10.1 SECONDS (9.4-12.5); PTT 24.2 SECONDS (25.1-36.5); Potassium 3.4 mmol/L (3.5-5.1)
[2023-09-22 13:23] LABS: ANION GAP 7.4 MEQ/L (5-15)
[2023-09-22] MEDS ORDERED: Rocephin 1000 MG INJ ONE (13:34)
[2023-09-22] MEDS: Rocephin 1000 MG INJ IM ONE (13:41)
== END 2023-09-22 13:53 | disposition home or self-care (01) ==
LOC: ED 12:19
DX: L03.116 Cellulitis of left lower limb (principal); M05.79 Rheumatoid arthritis with rheumatoid factor of multiple sites without organ or systems involvement; I10 Essential (primary) hypertension; E78.5 Hyperlipidemia, unspecified; Z79.899 Other long term (current) drug therapy
CPT/HCPCS: 36415; 80053; 85025; 85610; 85730; 96372; 99283; J0696

== ENCOUNTER 2023-12-13 05:55 | Day surgery (SDC) | payer MEDICARE ==
[2023-12-13 06:19] VITALS: RESP 18; TEMP 96.9; O2SAT 97
[2023-12-13] MEDS: Lactated Ringers 1,000 ML IV SCH (06:20)
[2023-12-13] MEDS ORDERED: DIPRIVAN 200 MG/20 ML IV ONE ×2 (06:57→07:20)
[2023-12-13] MEDS ORDERED: Xylocaine-Mpf 2% 5 Ml Vial ONE (06:57)
[2023-12-13 08:08] VITALS: BP 130/75; PULSE 86
--- NOTE | 2023-12-13 08:58 | OP ---
SURGERY DATE/TIME: 12/13/2023 0659 PREOPERATIVE DIAGNOSIS: Colon cancer. POSTOPERATIVE DIAGNOSIS: Sigmoid diverticulosis and normal colon otherwise status post partial right hemicolectomy. PROCEDURE: Colonoscopy. SURGEON: Dr. Lechuga. ANESTHESIA: Medications given by anesthesia department. HISTORY: The patient is a 73-year-old white female who presents now for repeat colon examination. She has multiple stools a day. She has recently been diagnosed and treated for Clostridium difficile. The patient has chemotherapy in the past as well as partial right hemicolectomy. The patient was appraised of the risks of the procedure including the risk of perforation, phlebitis, untoward reaction to medication, bleeding and missed lesions. The patient verbalized her understanding and desired to have the procedure performed. DESCRIPTION OF PROCEDURE: The patient was given the medications by the anesthesia department. She had continuous pulse oximetry, ECG monitoring and intermittent blood pressure monitoring during the examination. She was placed in the left lateral decubitus position. Digital rectal examination was performed and revealed normal anal sphincter tone and no masses. The flexible Olympus pediatric colonoscope was used to intubate the rectum. A view of the colon was developed sequentially to the anastomotic site in the right colon. Upon insertion and withdrawal was noted mild sigmoid diverticulosis. No other mucosal lesions were noted. The scope was removed from the patient who tolerated the procedure well and was sent back to OP recovery in good condition. The prep was noted to be fair to good.
== END 2023-12-13 08:15 | disposition home or self-care (01) ==
LOC: SDC 05:55
PROVIDERS: ATTEND Family Medicine
DX: K57.30 Diverticulosis of large intestine without perforation or abscess without bleeding (principal); C18.9 Malignant neoplasm of colon, unspecified; Z90.49 Acquired absence of other specified parts of digestive tract
CPT/HCPCS: 99100; J1642; J2704

== ENCOUNTER 2023-12-22 12:05 | Emergency (ER) | payer MEDICARE ==
[2023-12-22 14:57] VITALS: TEMP 96.7
--- NOTE | 2023-12-22 15:25 | ERPHSYRPT ---
- History of Present Illness Time Seen by Provider: 12/22/23 14:51 Patient Subjective Stated Complaint: C/O cellulitis to RLE for 2 days Triage Nursing Assessment: Patient ambulated back to ER without any difficulties. She is alert and oriented. Right palencia noted to be red and warm to touch. Normal sensation to RLE. KIRK WNL. Physician History: 73-year-old female presented to the ER with complains of right leg pain and swelling for the last 2 days with progressive worsening. Patient reports dull aching mild to moderate pain all the time with worsening on ambulation. Patient denies any fever or chills. Denies any fall or trauma. Patient reports having similar symptoms on the left leg where she ended up in cellulitis needing antibiotics for quite some time. Denies any history of DVT. No difficulty breathing but what she has at her baseline. Allergies/Adverse Reactions: bee venom protein (honey bee) Adverse Reaction (Severe, Verified 12/22/23 14:50) Anaphylactic Reaction acetaminophen [From Tylenol-Codeine] Adverse Reaction (Mild, Verified 12/22/23 14:50) Nausea codeine [From Tylenol-Codeine] Adverse Reaction (Mild, Verified 12/22/23 14:50) Nausea bandaids Adverse Reaction (Mild, Uncoded 12/22/23 14:50) redness/swelling Home Medications: Famotidine 20 mg [Pepcid 20 MG] 20 mg PO BID 07/20/20 [History] Metoprolol Succinate 100 mg [Toprol Xl 100 MG] 100 mg PO DAILY 11/23/20 [H istory] Amitriptyline HCl 25 mg [Amitriptyline 25 mg Tablet] 75 mg PO TID 03/09/22 [History] Furosemide 40 mg [Lasix 40 MG] 40 mg PO DAILY 03/09/22 [History] Gabapentin 300 mg PO TID 03/09/22 [History] Leflunomide 10 mg PO DAILY 03/09/22 [History] Dupilumab [Dupixent Pen] 300 mg SQ UD 12/05/22 [History] Fluticasone/Salmeterol [Advair 100-50 Diskus] 1 blist IH DAILY 12/05/22 [History] Cyanocobalamin (Vitamin B-12) [Vitamin B-12] 500 mcg PO DAILY 09/22/23 [History] Potassium Chloride Tab* [Klor Con] 20 meq PO BID 09/22/23 [History] Sucralfate 1 gm [Carafate 1 GM] 1 g PO TID 09/22/23 [History] Aspirin/Acetaminophen/Caffeine [Excedrin Extra Strength Caplet] 1 each PO BID 12/05/23 [History] Mv-Mn/Iron/Folic Acid/Herb 190 [Vitamin D3 Complete Caplet] 1 each PO DAILY 12/05/23 [History] Hx Tetanus, Diphtheria Vaccination/Date Given: Yes Hx Influenza Vaccination/Date Given: Yes Hx Pneumococcal Vaccination/Date Given: Yes Immunizations Up to Date: Yes Travel Risk - International Travel Have you traveled outside of the country in past 3 weeks: No - Emerging Infectious Disease Are you exhibiting symptoms associated with any current EIDs: No Comment: pt just finished a round of antibiotics for c-diff - Review of Systems Constitutional: No Symptoms Eyes: No Symptoms Ears, Nose, & Throat: No Symptoms Respiratory: Cough Cardiac: No Symptoms Abdominal/Gastrointestinal: No Symptoms Musculoskeletal: No Symptoms Skin: Cellulitis Neurological: No Symptoms - Past Medical History Pertinent Past Medical History: Yes Neurological History: No Pertinent History ENT History: No Pertinent History Cardiac History: High Cholesterol, Hypertension Respiratory History: COPD Endocrine Medical History: No Pertinent History Musculoskeletal History: Rheumatoid Arthritis GI Medical History: Colorectal Cancer, Diverticulosis, GERD, Polyps History: No Pertinent History Psycho-Social History: Anxiety Female Reproductive Disorders: Breast Cancer Other Medical History: BILATERAL Knee replacement 2008, BARIATRIC SURGERY 2009; BREAST CA W/ LUMPECTOMY 2003, colonoscopy, rheumatoid arthritis, C-Diff - Past Surgical History Past Surgical History: Yes Neuro Surgical History: No Pertinent History Cardiac: No Pertinent History Respiratory: No Pertinent History Gastrointestinal: Colon Resection, Hernia Repair, Other Genitourinary: No Pertinent History Musculoskeletal: Joint Replacement, Orthopedic Surgery Female Surgical History: Tubal Ligation, Mastectomy Other Surgical History: T&A,Bjorn knee replacement, umbil. hernior.,bariatric surgery, breast cancer with partial mastectomy left, lumpectomy right breast, tubal, colon resection, states CVL port placed and removed Significant Family History: heart disease, cancer - Social History Smoking Status: Former smoker How long have you smoked: 40 yrs Exposure to second hand smoke: Yes Drug Use: none Patient Lives Alone: Yes - Nursing Vital Signs Nursing Vital Signs: Initial Vital Signs Blood Pressure 145/83 12/22/23 14:50 O2 Sat by Pulse Oximetry 93 L 12/22/23 14:50 Pain Scale Pain Intensity 6 - Physical Exam General Appearance: no apparent distress, alert Eye Exam: PERRL/EOMI Neck Exam: normal inspection, full range of motion Respiratory Exam: normal breath sounds, lungs clear Cardiovascular Exam: regular rate/rhythm, normal heart sounds Extremity Exam: other (6 time 4 cm area right lower anterior leg with erythema, warmth, minimally tender, minimal calf tenderness.) Neurologic Exam: alert, oriented x 3, cooperative, web specialist II-XII nml as tested Skin Exam: normal color SpO2 Interpretation: normal SpO2: 93 O2 Delivery: Room Air Ordered Tests: Active Orders 24 hr Category Date Time Status VENOUS UNILAT/LIMITED EXTREMIT [US] Stat Exams 12/22/23 16:57 Taken BLOOD CULTURE Stat Lab 12/22/23 15:50 Received CBC W DIFF Stat Lab 12/22/23 16:40 Completed CMP Stat Lab 12/22/23 15:50 Completed D-DIMER QUANTITATIVE Stat Lab 12/22/23 15:50 Completed Lactic Acid Stat Lab 12/22/23 15:23 Completed Medication Summary Discontinued Medications Generic Name Dose Route Start Last Admin Trade Name Freq PRN Reason Stop Dose Admin Cephalexin HCl 500 mg 12/22/23 17:55 Cephalexin Mh500 Mg Capsule PO 12/22/23 17:56 STAT ONE Lab/Rad Data: Laboratory Result Diagrams 12/22/23 16:40 12/22/23 15:50 Laboratory Results 12/22/23 12/22/23 12/22/23 Range/Units 16:40 15:50 15:50 WBC 5.6 (4.0-10.5) x10^3/uL RBC 4.05 L (4.1-5.4) x10^6/uL Hgb 9.7 L (12.0-16.0) g/dL Hct 32.3 L (35-47) % MCV 79.8 (78-100) fL MCH 24.0 L (26-32) pg MCHC 30.0 L (32-36) g/dL RDW 14.1 H (11.5-14.0) % Plt Count 229 (150-450) x10^3/uL MPV 9.7 (7.5-11.0) fL Gran % 56.1 (36.0-66.0) % Immature Gran % (Auto) 0.2 (0.00-0.4) % Nucleat RBC Rel Count 0.0 (0.00-0.1) % Eos # (Auto) 0 (0-0.5) x10^3/uL Immature Gran # (Auto) 0.01 (0.00-0.03) x10^3u/L Absolute Lymphs (auto) 1.78 (1.0-4.6) x10^3/uL Absolute Monos (auto) 0.64 (0.0-1.3) x10^3/uL Absolute Nucleated RBC 0.00 (0.00-0.01) x10^3u/L Lymphocytes % 31.8 (24.0-44.0) % Monocytes % 11.4 (0.0-12.0) % Eosinophils % 0.0 (0.00-5.0) % Basophils % 0.5 (0.0-0.4) % Absolute Granulocytes 3.13 (1.4-6.9) x10^3/uL Basophils # 0.03 (0-0.4) x10^3/uL D-Dimer 1.00 H* (0.0-0.50) mg/L Sodium 139 (135-145) mmol/L Potassium 4.4 (3.5-5.1) mmol/L Chloride 108 H (98-107) mmol/L Carbon Dioxide 20 L (22-30) mmol/L Anion Gap 15.3 H (5-15) MEQ/L BUN 23 H (7-17) mg/dL Creatinine 0.65 (0.52-1.04) mg/dL Estimated GFR 91.8 ML/MIN Glucose 99 (74-106) mg/dL Lactic Acid (0.4-2.0) Calcium 9.4 (8.4-10.2) mg/dL Total Bilirubin 0.50 (0.2-1.3) mg/dL AST 40 H (14-36) U/L ALT 30 (0-35) U/L Alkaline Phosphatase 104 (38-126) U/L Serum Total Protein 7.8 (6.3-8.2) g/dL Albumin 4.5 (3.5-5.0) g/dL 12/22/23 Range/Units 15:23 WBC (4.0-10.5) x10^3/uL RBC (4.1-5.4) x10^6/uL Hgb (12.0-16.0) g/dL Hct (35-47) % MCV (78-100) fL MCH (26-32) pg MCHC (32-36) g/dL RDW (11.5-14.0) % Plt Count (150-450) x10^3/uL MPV (7.5-11.0) fL Gran % (36.0-66.0) % Immature Gran % (Auto) (0.00-0.4) % Nucleat RBC Rel Count (0.00-0.1) % Eos # (Auto) (0-0.5) x10^3/uL Immature Gran # (Auto) (0.00-0.03) x10^3u/L Absolute Lymphs (auto) (1.0-4.6) x10^3/uL Absolute Monos (auto) (0.0-1.3) x10^3/uL Absolute Nucleated RBC (0.00-0.01) x10^3u/L Lymphocytes % (24.0-44.0) % Monocytes % (0.0-12.0) % Eosinophils % (0.00-5.0) % Basophils % (0.0-0.4) % Absolute Granulocytes (1.4-6.9) x10^3/uL Basophils # (0-0.4) x10^3/uL D-Dimer (0.0-0.50) mg/L Sodium (135-145) mmol/L Potassium (3.5-5.1) mmol/L Chloride (98-107) mmol/L Carbon Dioxide (22-30) mmol/L Anion Gap (5-15) MEQ/L BUN (7-17) mg/dL Creatinine (0.52-1.04) mg/dL Estimated GFR ML/MIN Glucose (74-106) mg/dL Lactic Acid 1.2 (0.4-2.0) Calcium (8.4-10.2) mg/dL Total Bilirubin (0.2-1.3) mg/dL AST (14-36) U/L ALT (0-35) U/L Alkaline Phosphatase (38-126) U/L Serum Total Protein (6.3-8.2) g/dL Albumin (3.5-5.0) g/dL - Progress Progress Note: 12/22/23 17:59 33-year-old is evaluated for right lower leg swelling and pain. Patient has no trauma. No bony tenderness. Seems like patient has cellulitis. Has normal white count and lactate. Chemistries fairly okay. I have obtained ultrasound which is negative for DVT per preliminary report, official report is pending. I believe patient is developing cellulitis and started on Keflex. Outpatient follow-up recommended. Discussed signs symptoms of worsening needing return to ER which she seems understanding. 12/22/23 17:59 Counseled pt/family regarding: lab results, diagnosis, need for follow-up, rad results Medical Desision Making - Diagnostic Testing Diagnostic test were ordered, analyzed, and reviewed by me: Yes Radiological Interpretation: Reviewed by me - Risk of complications The pt has a mod risk of morbidity or mortality based on: Need for prescription drug management - Departure Departure Disposition: Home Clinical Impression: Cellulitis of right lower extremity Condition: Stable Critical Care Time: No Referrals: WANDER MONTOYA [Primary Care Provider] - Follow up with PCP 1 day Instructions: Cellulitis (Skin Infection), Adult ED Additional Instructions: Take Tylenol as needed. Follow-up with primary care for reevaluation. Return to ER for increasing pain swelling redness or difficulty ambulation etc. Prescriptions: Cephalexin Mh 500 mg [Keflex 500 mg] 500 mg PO TID #21 cap
[2023-12-22 16:13] LABS: ALBUMIN 4.5 g/dL (3.5-5.0); ANION GAP 15.3 MEQ/L (5-15); BILIRUBIN,TOTAL 0.5 mg/dL (0.2-1.3); Calcium 9.4 mg/dL (8.4-10.2); Creatinine 1 0.65 mg/dL (0.52-1.04); EST GLOMERULAR FILTRATION RATE 91.8 ML/MIN; Potassium 4.4 mmol/L (3.5-5.1); Total Protein 7.8 g/dL (6.3-8.2)
[2023-12-22 16:45] LABS: Absolute Neutrophil Ct (ANC) 3.13 x10^3/uL (1.4-6.9); BASOPHIL % 0.5 % (0.0-0.4); Basophil (Absolute #) 0.03 x10^3/uL (0-0.4); Eosinophil (Absolute #) 0 x10^3/uL (0-0.5); Hematocrit 32.3 % (35-47); Hemoglobin 9.7 g/dL (12.0-16.0); IMMATURE GRAN # 0.01 x10^3u/L (0.00-0.03); IMMATURE GRAN % 0.2 % (0.00-0.4); Lymphocyte (Absolute #) 1.78 x10^3/uL (1.0-4.6); Lymphocytes % 31.8 % (24.0-44.0); Mean Cell Volume 79.8 fL (78-100); Mean Platelet Volume 9.7 fL (7.5-11.0); Monocyte (Absolute #) 0.64 x10^3/uL (0.0-1.3); Monocytes % 11.4 % (0.0-12.0); Neutrophil % 56.1 % (36.0-66.0); Platelet Count 229 x10^3/uL (150-450); Red Blood Count 4.05 x10^6/uL (4.1-5.4); Red Cell Distribution Width 14.1 % (11.5-14.0); White Blood Count 5.6 x10^3/uL (4.0-10.5)
[2023-12-22 17:35] VITALS: BP 131/70; PULSE 88; RESP 18
[2023-12-22 18:01] VITALS: O2SAT 93
[2023-12-22] MEDS ORDERED: KEFLEX 500 MG ONE (18:19)
[2023-12-22] MEDS: KEFLEX 500 MG PO ONE (18:19)
--- NOTE | 2023-12-22 20:02 | XRAY ---
Indication: Swelling. Two-dimensional sonogram and color Doppler imaging major venous vessels right leg performed. Comparison: October 12, 2021 No thrombus seen in the examined deep venous vessels right leg including greater saphenous vein. Veins demonstrate normal compressibility. Venous waveforms are normal with and without augmentation. Impression: Right leg continues to be negative for DVT. Comment: Preliminary report was given.
== END 2023-12-22 18:28 | disposition home or self-care (01) ==
LOC: ED 12:05
DX: L03.115 Cellulitis of right lower limb (principal); M79.604 Pain in right leg; E78.5 Hyperlipidemia, unspecified; I10 Essential (primary) hypertension; Z79.899 Other long term (current) drug therapy
CPT/HCPCS: 36000; 36415; 80053; 83605; 85025; 85379; 87040; 93971; 99284; J1642; A9270-GY

== ENCOUNTER 2024-01-23 13:54 | Emergency (ER) | payer MEDICARE ==
[2024-01-23 14:09] VITALS: TEMP 97.3
[2024-01-23] MEDS ORDERED: Sodium Chloride 0.9% 1000 ML 1,000 ML ONE (14:33)
[2024-01-23] MEDS: Sodium Chloride 0.9% 1000 ML 1,000 ML IV SCH (14:37)
--- NOTE | 2024-01-23 14:38 | ERPHSYRPT ---
- History of Present Illness Time Seen by Provider: 01/23/24 14:08 Historian: patient Exam Limitations: no limitations Patient Subjective Stated Complaint: C/O loose stools for a month. Indicates, "I just can't take it anymore and the antibiotics aren't working." Triage Nursing Assessment: Patient ambulated back to the ER without difficulties. She is alert and oriented; anxious. BRADLEY WNL. Skin tone normal. Physician History: 74 years old female with history of C. difficile in the past presented in the ER with 10-15 stools every day for the last couple of months with progressive worsening. Reports minimal abdominal discomfort. She has completed course of oral antibiotics in the past but things like C. difficile is coming back. Patient was seen by Dr. Mateo LOPEZ out of [place], he recommended restarting another round of antibiotics but patient reported that she cannot take it anymore. She is sent in here for further evaluation. I have spoken with Dr. Galindo who recommended oral vancomycin 250 mg and observation in the hospital for fluids. Allergies/Adverse Reactions: bee venom protein (honey bee) Adverse Reaction (Severe, Verified 01/23/24 14:16) Anaphylactic Reaction acetaminophen [From Tylenol-Codeine] Adverse Reaction (Mild, Verified 01/23/24 14:16) Nausea codeine [From Tylenol-Codeine] Adverse Reaction (Mild, Verified 01/23/24 14:16) Nausea bandaids Adverse Reaction (Mild, Uncoded 01/23/24 14:16) redness/swelling Home Medications: Famotidine 20 mg [Pepcid 20 MG] 20 mg PO BID 07/20/20 [History] Metoprolol Succinate 100 mg [Toprol Xl 100 MG] 100 mg PO DAILY 11/23/20 [History] Amitriptyline HCl 25 mg [Amitriptyline 25 mg Tablet] 25 mg PO TID 03/09/22 [History] Furosemide 40 mg [Lasix 40 MG] 40 mg PO DAILY 03/09/22 [History] Gabapentin 300 mg PO TID 03/09/22 [History] Dupilumab [Dupixent Pen] 300 mg SQ CLARIFY 12/05/22 [History] Fluticasone Propion/Salmeterol [Advair 100-50 Diskus] 1 blist IH DAILY 12/05/22 [History] Cyanocobalamin (Vitamin B-12) [Vitamin B-12] 500 mcg PO DAILY 09/22/23 [History] Potassium Chloride Tab* [Klor Con] 20 meq PO BID 09/22/23 [History] Sucralfate 1 gm [Carafate 1 GM] 1 g PO TID 09/22/23 [History] Aspirin/Acetaminophen/Caffeine [Excedrin Extra Strength Caplet] 2 each PO BID 12/05/23 [History] Mv-Mn/Iron/Folic Acid/Herb 190 [Vitamin D3 Complete Caplet] 1 each PO DAILY 12/05/23 [History] Folic Acid 1 mg [Folate 1 mg] 1 mg PO DAILY 01/23/24 [History] Lactobacillus Acidophilus [Probiotic] 1 cap PO DAILY 01/23/24 [History] Hx Tetanus, Diphtheria Vaccination/Date Given: Yes Hx Influenza Vaccination/Date Given: Yes Hx Pneumococcal Vaccination/Date Given: Yes Immunizations Up to Date: Yes Travel Risk - International Travel Have you traveled outside of the country in past 3 weeks: No - Emerging Infectious Disease Are you exhibiting symptoms associated with any current EIDs: Yes Symptoms: Diarrhea Comment: pt just finished a round of antibiotics for c-diff - Review of Systems Constitutional: Fatigue, Weakness Eyes: No Symptoms Ears, Nose, & Throat: No Symptoms Respiratory: No Symptoms Cardiac: No Symptoms Abdominal/Gastrointestinal: Abdominal Pain, Diarrhea Genitourinary Symptoms: No Symptoms Musculoskeletal: No Symptoms Skin: No Symptoms Neurological: No Symptoms Endocrine: No Symptoms Hematologic/Lymphatic: No Symptoms - Past Medical History Pertinent Past Medical History: Yes Neurological History: No Pertinent History ENT History: No Pertinent History Cardiac History: High Cholesterol, Hypertension Respiratory History: COPD Endocrine Medical History: No Pertinent History Musculoskeletal History: Rheumatoid Arthritis GI Medical History: Colorectal Cancer, Diverticulosis, GERD, Polyps History: No Pertinent History Psycho-Social History: Anxiety Female Reproductive Disorders: Breast Cancer Other Medical History: BILATERAL Knee replacement 2008, BARIATRIC SURGERY 2009; BREAST CA W/ LUMPECTOMY 2003, colonoscopy, rheumatoid arthritis, C-Diff - Past Surgical History Past Surgical History: Yes Neuro Surgical History: No Pertinent History Cardiac: No Pertinent History Respiratory: No Pertinent History Gastrointestinal: Colon Resection, Hernia Repair, Other Genitourinary: No Pertinent History Musculoskeletal: Joint Replacement, Orthopedic Surgery Female Surgical History: Tubal Ligation, Mastectomy Other Surgical History: T&A,Bjorn knee replacement, umbil. hernior.,bariatric surgery, breast cancer with partial mastectomy left, lumpectomy right breast, tubal, colon resection, states CVL port placed and removed Significant Family History: heart disease, cancer - Social History Smoking Status: Never smoker How long have you smoked: 40 yrs Exposure to second hand smoke: No Drug Use: none Patient Lives Alone: Yes - Social Determinants of Health Will the patient participate in the screening: Yes Do you worry about a steady place to live?: No Do you have any problems with any of the following?: No known problems In the past 12 months,have you had to go without utilities?: No Transportation Issues: No Has anyone in your support network made you feel unsafe?: No Have you or anyone in your house had to go without enough: No - Nursing Vital Signs Nursing Vital Signs: Initial Vital Signs Pulse Rate 90 01/23/24 14:04 Respiratory Rate 19 01/23/24 14:04 Blood Pressure 145/93 01/23/24 14:04 O2 Sat by Pulse Oximetry 95 01/23/24 14:04 Pain Scale Pain Intensity 0 - Physical Exam General Appearance: no apparent distress, alert Eye Exam: PERRL/EOMI Ears, Nose, Throat Exam: normal ENT inspection Neck Exam: normal inspection, supple, full range of motion Respiratory Exam: normal breath sounds, lungs clear Cardiovascular Exam: regular rate/rhythm, normal heart sounds Gastrointestinal/Abdomen Exam: soft, normal bowel sounds, No tenderness Back Exam: normal inspection, normal range of motion Extremity Exam: normal inspection, normal range of motion Neurologic Exam: alert, oriented x 3, cooperative Skin Exam: normal color SpO2 Interpretation: normal SpO2: 96 O2 Delivery: Room Air Ordered Tests: Active Orders 24 hr Category Date Time Status IV Insertion STAT Care 01/23/24 14:23 Active ABDOMEN AND PELVIS W CONTRAST [CT] Stat Exams 01/23/24 14:27 Completed CBC W DIFF Stat Lab 01/23/24 14:41 Completed CMP Stat Lab 01/23/24 14:41 Completed UA W/RFX UR CULTURE Stat Lab 01/23/24 14:28 Completed Medication Summary Generic Name Dose Route Start Last Admin Trade Name Freq PRN Reason Stop Dose Admin Sodium Chloride 1,000 mls @ 100 mls/hr 01/23/24 14:30 01/23/24 14:37 Sodium Chloride 0.9% 1000 Ml IV 02/22/24 14:29 100 mls/hr .Q10H SALVADOR Administration Discontinued Medications Generic Name Dose Route Start Last Admin Trade Name Freq PRN Reason Stop Dose Admin Vancomycin HCl 250 mg 01/23/24 19:27 01/23/24 19:32 Vancomycin Hcl 125 Mg Capsule PO 01/23/24 19:28 Not Given STAT ONE Vancomycin HCl 125 mg 01/23/24 19:30 01/23/24 19:41 Vancomycin Hcl 125 Mg Capsule PO 01/23/24 19:31 125 mg STAT ONE Administration Lab/Rad Data: Laboratory Result Diagrams 01/23/24 14:41 01/23/24 14:41 Laboratory Results 01/23/24 01/23/24 01/23/24 Range/Units 17:20 14:41 14:41 WBC 6.9 (3.98-10.04) x10^3/uL RBC 3.70 L (3.93-5.22) x10^6/uL Hgb 8.3 L (11.2-15.7) g/dL Hct 28.7 L (34.1-44.9) % MCV 77.6 L (79.4-94.8) fL MCH 22.4 L (25.6-32.2) pg MCHC 28.9 L (32.2-35.5) g/dL RDW 15.6 H (11.7-14.4) % Plt Count 220 (182-369) x10^3/uL MPV 8.4 L (9.4-12.3) fL Gran % 65.1 (34.0-71.1) % Immature Gran % (Auto) 0.3 (0.001-0.429) % Nucleat RBC Rel Count 0.0 (0.00-0.2) % Eos # (Auto) 0.13 (0.04-0.36) x10^3/uL Immature Gran # (Auto) 0.02 (0.001-0.031) x10^3u/L Absolute Lymphs (auto) 1.68 (1.18-3.74) x10^3/uL Absolute Monos (auto) 0.53 (0.24-0.86) x10^3/uL Absolute Nucleated RBC 0.00 (0.00-0.012) x10^3u/L Lymphocytes % 24.3 (19.3-51.7) % Monocytes % 7.7 (4.7-12.5) % Eosinophils % 1.9 (0.7-5.8) % Basophils % 0.7 (0.1-1.2) % Absolute Granulocytes 4.50 (1.56-6.13) x10^3/uL Basophils # 0.05 (0.01-0.08) x10^3/uL Sodium 138 (135-145) mmol/L Potassium 3.7 (3.5-5.1) mmol/L Chloride 109 H (98-107) mmol/L Carbon Dioxide 24 (22-30) mmol/L Anion Gap 9.5 (5-15) MEQ/L BUN 17 (7-17) mg/dL Creatinine 0.59 (0.52-1.04) mg/dL Estimated GFR 93.3 ML/MIN Glucose 96 (74-106) mg/dL Calcium 8.8 (8.4-10.2) mg/dL Total Bilirubin 0.30 (0.2-1.3) mg/dL AST 24 (14-36) U/L ALT 20 (0-35) U/L Alkaline Phosphatase 69 (38-126) U/L Serum Total Protein 6.1 L (6.3-8.2) g/dL Albumin 3.5 (3.5-5.0) g/dL Urine Color (Yellow) Urine Appearance (Clear) Urine pH (4.6-8.0) Ur Specific Hunter (1.005-1.030) Urine Protein (Negative) Urine Glucose (UA) (Negative) mg/dL Urine Ketones (Negative) Urine Blood (Negative) Urine Nitrite (Negative) Urine Bilirubin (Negative) Urine Urobilinogen (0.2) mg/dL Ur Leukocyte Esterase (Negative) U Hyaline Cast (Auto) (0-2) /LPF Urine Microscopic RBC (0-5) /HPF Urine Microscopic WBC (0-5) /HPF Ur Epithelial Cells (None Seen) /HPF Urine Bacteria (None Seen) /HPF Urine Culture Reflexed (NO) C. difficile Screen POSITIVE (NEGATIVE) C.difficile 027-[id number] PRESUMPTIVE NEGATIVE (NEGATIVE) 01/23/24 Range/Units 14:28 WBC (3.98-10.04) x10^3/uL RBC (3.93-5.22) x10^6/uL Hgb (11.2-15.7) g/dL Hct (34.1-44.9) % MCV (79.4-94.8) fL MCH (25.6-32.2) pg MCHC (32.2-35.5) g/dL RDW (11.7-14.4) % Plt Count (182-369) x10^3/uL MPV (9.4-12.3) fL Gran % (34.0-71.1) % Immature Gran % (Auto) (0.001-0.429) % Nucleat RBC Rel Count (0.00-0.2) % Eos # (Auto) (0.04-0.36) x10^3/uL Immature Gran # (Auto) (0.001-0.031) x10^3u/L Absolute Lymphs (auto) (1.18-3.74) x10^3/uL Absolute Monos (auto) (0.24-0.86) x10^3/uL Absolute Nucleated RBC (0.00-0.012) x10^3u/L Lymphocytes % (19.3-51.7) % Monocytes % (4.7-12.5) % Eosinophils % (0.7-5.8) % Basophils % (0.1-1.2) % Absolute Granulocytes (1.56-6.13) x10^3/uL Basophils # (0.01-0.08) x10^3/uL Sodium (135-145) mmol/L Potassium (3.5-5.1) mmol/L Chloride (98-107) mmol/L Carbon Dioxide (22-30) mmol/L Anion Gap (5-15) MEQ/L BUN (7-17) mg/dL Creatinine (0.52-1.04) mg/dL Estimated GFR ML/MIN Glucose (74-106) mg/dL Calcium (8.4-10.2) mg/dL Total Bilirubin (0.2-1.3) mg/dL AST (14-36) U/L ALT (0-35) U/L Alkaline Phosphatase (38-126) U/L Serum Total Protein (6.3-8.2) g/dL Albumin (3.5-5.0) g/dL Urine Color Yellow (Yellow) Urine Appearance Clear (Clear) Urine pH 5.0 (4.6-8.0) Ur Specific Hunter 1.015 (1.005-1.030) Urine Protein Negative (Negative) Urine Glucose (UA) Negative (Negative) mg/dL Urine Ketones Negative (Negative) Urine Blood Negative (Negative) Urine Nitrite Negative (Negative) Urine Bilirubin Negative (Negative) Urine Urobilinogen 0.2 (0.2) mg/dL Ur Leukocyte Esterase Negative (Negative) U Hyaline Cast (Auto) 3-5 A (0-2) /LPF Urine Microscopic RBC 0-2 (0-5) /HPF Urine Microscopic WBC 0-2 (0-5) /HPF Ur Epithelial Cells Rare (None Seen) /HPF Urine Bacteria None Seen (None Seen) /HPF Urine Culture Reflexed NO (NO) C. difficile Screen (NEGATIVE) C.difficile 027-NAP1-B1 (NEGATIVE) - Progress Progress: improved Progress Note: 01/23/24 19:54 74-year-old is evaluated in ER for multiple episodes of loose stool every day for the last few months. No hematochezia. Patient workup showed normal white count, hemoglobin of 8.3 which is a drop from 9.7 almost a month ago. Patient denies any hematochezia or epigastric pain. She is on PPIs. Patient chemistries fairly unremarkable, given gentle hydration. No peritoneal signs on repeated evaluation. She has a negative CT abdomen pelvis for colitis or any other acute findings. Patient was not able to produce any stool sample and she told that it happens only if she eats. She did have lawnchair and stool is positive for C. difficile but negative for C. difficile toxins. I believe patient has colonization and not active infection. I would start her on vancomycin 125 4 times a day and recommended outpatient follow-up with primary care and ID for further evaluation. Discussed signs symptoms of worsening needing return to ER which she seems understanding. Patient has gradual decline in hemoglobin and also recommended outpatient endoscopy/colonoscopy to find out the cause of anemia. Patient is not symptomatic and do not think she needs to be placed in hospital. Discussed signs symptoms of worsening needing return to ER which she seems understanding. Stable for discharge. Discussed with Dr.: Other (Dr. Mcfadden infectious disease ) Counseled pt/family regarding: lab results, diagnosis, need for follow-up, rad results Medical Desision Making - Discussion of managment Care discussed with:: specialist Reviewed:: Test results Agreed on:: Treatment plan, need for follow-up Will see patient: In office - Diagnostic Testing Diagnostic test were ordered, analyzed, and reviewed by me: Yes Radiological Interpretation: Reviewed by me - Risk of complications The pt has a mod risk of morbidity or mortality based on: Need for prescription drug management - Departure Departure Disposition: Home Clinical Impression: Clostridioides difficile infection, Diarrhea, Anemia Condition: Stable Critical Care Time: No Referrals: WANDER MONTOYA [Primary Care Provider] - Follow up with PCP 1 day Instructions: Diarrhea and Traveler's Diarrhea, Adult (DC), Clostridioides difficile ED Additional Instructions: Follow-up with your primary care for reevaluation and further workup for anemia with endoscopy/colonoscopy. Also follow-up with your ID specialist Dr. Mcfadden, return to ER for intractable diarrhea/abdominal pain/fever chills etc. Prescriptions: Vancomycin HCl 125 mg PO QID 10 Days #40 cap
[2024-01-23 14:44] LABS: BASOPHIL % 0.7 % (0.1-1.2); Basophil (Absolute #) 0.05 x10^3/uL (0.01-0.08); Eosinophil % 1.9 % (0.7-5.8); Eosinophil (Absolute #) 0.13 x10^3/uL (0.04-0.36); Hematocrit 28.7 % (34.1-44.9); Hemoglobin 8.3 g/dL (11.2-15.7); IMMATURE GRAN # 0.02 x10^3u/L (0.001-0.031); IMMATURE GRAN % 0.3 % (0.001-0.429); Lymphocyte (Absolute #) 1.68 x10^3/uL (1.18-3.74); Lymphocytes % 24.3 % (19.3-51.7); Mean Cell Volume 77.6 fL (79.4-94.8); Mean Corpuscular Hemoglobin 22.4 pg (25.6-32.2); Mean Corpuscular Hgb Concent. 28.9 g/dL (32.2-35.5); Mean Platelet Volume 8.4 fL (9.4-12.3); Monocyte (Absolute #) 0.53 x10^3/uL (0.24-0.86); Monocytes % 7.7 % (4.7-12.5); Neutrophil % 65.1 % (34.0-71.1); Platelet Count 220 x10^3/uL (182-369); Red Cell Distribution Width 15.6 % (11.7-14.4); White Blood Count 6.9 x10^3/uL (3.98-10.04)
[2024-01-23 14:58] LABS: ALBUMIN 3.5 g/dL (3.5-5.0); ANION GAP 9.5 MEQ/L (5-15); BILIRUBIN,TOTAL 0.3 mg/dL (0.2-1.3); Calcium 8.8 mg/dL (8.4-10.2); Creatinine 1 0.59 mg/dL (0.52-1.04); EST GLOMERULAR FILTRATION RATE 93.3 ML/MIN; Potassium 3.7 mmol/L (3.5-5.1); Total Protein 6.1 g/dL (6.3-8.2)
[2024-01-23 15:06] LABS: Appearance Clear (Clear); Bacteria None Seen /HPF (None Seen); Bilirubin Negative (Negative); Blood Negative (Negative); Epithelial Cells Rare /HPF (None Seen); Glucose, Urine Negative (Negative); Ketones Negative (Negative); Leukocyte Esterase Negative (Negative); Nitrite Negative (Negative); Protein,Urine Dip Negative (Negative); RBC 0-2 /HPF (0-5); Specific Gravity 1.015 (1.005-1.030); Urobilinogen 0.2 mg/dL (0.2); WBC 0-2 /HPF (0-5)
[2024-01-23 15:08] LABS: ADD URINE CULTURE? NO (NO)
--- NOTE | 2024-01-23 15:59 | XRAY ---
Indication: Diarrhea. Colitis. Multiple contiguous images obtained through the abdomen and pelvis using 80 cc Isovue 370 contrast. Comparison: November 18, 2023 Lung bases clear. Heart not enlarged. Again gastric bypass surgery, right hemicolectomy, and cholecystectomy. Noncontrasted stomach and bowel loops appear nonobstructed again with scattered descending/sigmoid diverticulosis without diverticulitis. No abnormal bowel wall thickening or free fluid/air. Biliary tree again mildly prominent. Maintained liver, pancreas, spleen, adrenal glands, kidneys, ureters, and bladder are unremarkable. Stable moderate aortoiliac calcifications pain no AAA or pathologic retroperitoneal lymphadenopathy. Osseous structures intact again with mild/moderate degenerative changes throughout the spine and left lower back epidural generator with dual leads. Impression: Stable CT abdomen/pelvis with contrast exam again demonstrating postsurgical changes, colonic diverticulosis, arteriosclerotic disease, and chronic bony findings. No new/acute abnormalities.
[2024-01-23 18:16] LABS: 027 TOX PROD PRESUMPTIVE NEGATIVE (NEGATIVE)
[2024-01-23 18:17] LABS: TOXIGENIC C. DIFF ORG POSITIVE (NEGATIVE)
[2024-01-23 18:31] VITALS: PULSE 87
[2024-01-23 19:18] VITALS: BP 152/85; RESP 27
[2024-01-23] MEDS: VANCOMYCIN HCL CAPSULE PO ONE ×2 (19:32→19:41)
[2024-01-23 20:00] VITALS: O2SAT 96
[2024-01-24 00:19] LABS: Slide Review 1 YES
== END 2024-01-23 20:22 | disposition home or self-care (01) ==
LOC: ED 13:54
DX: A04.71 Enterocolitis due to Clostridium difficile, recurrent (principal); D64.9 Anemia, unspecified; E78.5 Hyperlipidemia, unspecified; I10 Essential (primary) hypertension; Z79.899 Other long term (current) drug therapy
CPT/HCPCS: 36000; 36415; 74177; 80053; 81001; 85025; 87493; 99284; J1642

== ENCOUNTER 2024-02-16 12:30 | Observation (INO) | payer MEDICARE ==
--- NOTE | 2024-02-16 13:16 | ERPHSYRPT ---
- History of Present Illness Time Seen by Provider: 02/16/24 13:02 Source: patient Exam Limitations: no limitations Patient Subjective Stated Complaint: C/O SOB for 3 days Triage Nursing Assessment: Patient arrived by ambulance. Breathing is labored; SOB present. Sating WNL on room air. No cough. Patient is pale. She is alert and oriented. BRADLEY WNL. Physician History: For the past 3 days pt has had shortness of air; denies chest pain, fever, vomiting, abdominal pain. Allergies/Adverse Reactions: bee venom protein (honey bee) Adverse Reaction (Severe, Verified 02/16/24 12:58) Anaphylactic Reaction acetaminophen [From Tylenol-Codeine] Adverse Reaction (Mild, Verified 02/16/24 12:58) Nausea codeine [From Tylenol-Codeine] Adverse Reaction (Mild, Verified 02/16/24 12:58) Nausea bandaids Adverse Reaction (Mild, Uncoded 02/16/24 12:58) redness/swelling Home Medications: Famotidine 20 mg [Pepcid 20 MG] 20 mg PO BID 07/20/20 [History] Metoprolol Succinate 100 mg [Toprol Xl 100 MG] 100 mg PO DAILY 11/23/20 [History] Amitriptyline HCl 25 mg [Amitriptyline 25 mg Tablet] 25 mg PO TID 03/09/22 [History] Furosemide 40 mg [Lasix 40 MG] 40 mg PO DAILY 03/09/22 [History] Gabapentin 300 mg PO TID 03/09/22 [History] Dupilumab [Dupixent Pen] 300 mg SQ CLARIFY 12/05/22 [History] Fluticasone Propion/Salmeterol [Advair 100-50 Diskus] 1 blist IH DAILY 12/05/22 [History] Cyanocobalamin (Vitamin B-12) [Vitamin B-12] 500 mcg PO DAILY 09/22/23 [History] Potassium Chloride Tab* [Klor Con] 20 meq PO BID 09/22/23 [History] Sucralfate 1 gm [Carafate 1 GM] 1 g PO TID 09/22/23 [History] Aspirin/Acetaminophen/Caffeine [Excedrin Extra Strength Caplet] 2 each PO BID 12/05/23 [History] Mv-Mn/Iron/Folic Acid/Herb 190 [Vitamin D3 Complete Caplet] 1 each PO DAILY 12/05/23 [History] Folic Acid 1 mg [Folate 1 mg] 1 mg PO DAILY 01/23/24 [History] Lactobacillus Acidophilus [Probiotic] 1 cap PO DAILY 01/23/24 [History] Fecal Microbio Spore,Live-Brpk [Vowst] 4 tab PO DAILY 02/16/24 [History] Hx Tetanus, Diphtheria Vaccination/Date Given: Yes Hx Influenza Vaccination/Date Given: Yes Hx Pneumococcal Vaccination/Date Given: Yes Immunizations Up to Date: Yes Travel Risk - International Travel Have you traveled outside of the country in past 3 weeks: No - Emerging Infectious Disease Are you exhibiting symptoms associated with any current EIDs: Yes Symptoms: Shortness of Breath Comment: pt just finished a round of antibiotics for c-diff - Review of Systems Constitutional: No Fever Respiratory: Cough (occasional for years), Dyspnea Cardiac: No Chest Pain Abdominal/Gastrointestinal: Diarrhea (for the past year), No Vomiting Neurological: No Headache - Past Medical History Pertinent Past Medical History: Yes Neurological History: No Pertinent History ENT History: No Pertinent History Cardiac History: High Cholesterol, Hypertension Respiratory History: COPD Endocrine Medical History: No Pertinent History Musculoskeletal History: Rheumatoid Arthritis GI Medical History: Colorectal Cancer, Diverticulosis, GERD, Polyps History: No Pertinent History Psycho-Social History: Anxiety Female Reproductive Disorders: Breast Cancer Other Medical History: C-Diff (Dr. Epstein) - Past Surgical History Past Surgical History: Yes Neuro Surgical History: No Pertinent History Cardiac: No Pertinent History Respiratory: No Pertinent History Gastrointestinal: Colon Resection, Hernia Repair, Other Genitourinary: No Pertinent History Musculoskeletal: Joint Replacement, Orthopedic Surgery Female Surgical History: Tubal Ligation, Mastectomy Other Surgical History: Bjorn knee replacement, bariatric surgery, breast cancer with partial mastectomy left, lumpectomy right breast, port placed Significant Family History: heart disease, cancer - Social History Smoking Status: Former smoker How long have you smoked: 40 yrs Exposure to second hand smoke: No Drug Use: none Patient Lives Alone: Yes - Social Determinants of Health Will the patient participate in the screening: Yes Do you worry about a steady place to live?: No Do you have any problems with any of the following?: No known problems In the past 12 months,have you had to go without utilities?: No Transportation Issues: No Has anyone in your support network made you feel unsafe?: No Have you or anyone in your house had to go without enough: No - Nursing Vital Signs Nursing Vital Signs: Initial Vital Signs Temperature 97.7 F 02/16/24 12:33 Pulse Rate 106 H 02/16/24 12:33 Respiratory Rate 30 H 02/16/24 12:33 Blood Pressure 129/62 02/16/24 12:33 O2 Sat by Pulse Oximetry 98 02/16/24 12:33 Pain Scale Pain Intensity 0 - Physical Exam General Appearance: alert Eye Exam: eyes nml inspection Ears, Nose, Throat Exam: hearing grossly normal, pharyngeal erythema (mild) Neck Exam: normal inspection Respiratory Exam: wheezing (minimal expiratory wheezing over posterior bases) Cardiovascular/Chest Exam: normal heart sounds Abdominal/Gastrointestinal Exam: other (B.S. mildly hyperactive and normotonic) Neurologic Exam: alert, cooperative Skin Exam: warm, dry, pale SpO2 Interpretation: normal SpO2: 98 O2 Delivery: Room Air - Course Nursing assessment & vital signs reviewed: Yes EKG Interpreted by Me: RATE (95), Sinus Rhythm, NORMAL AXIS, Other (QTc = 468) - CT Exams Chest CT Interpretation: Tele-radiologist Report (No evidence of PE. Bilateral mild pleural effusion is seen. Intrerval new finding. See rest of report.) Ordered Tests: Active Orders 24 hr Category Date Time Status EKG-ER Only STAT Care 02/16/24 13:12 Active IV Insertion STAT Care 02/16/24 13:12 Active CHEST WITH CONTRAST [CT] Stat Exams 02/16/24 13:13 Completed CBC W DIFF Stat Lab 02/16/24 13:25 Completed CMP Stat Lab 02/16/24 13:25 Completed MAGNESIUM Stat Lab 02/16/24 13:25 Completed TROPONIN Q4H Lab 02/16/24 13:25 Completed TROPONIN Q4H Lab 02/16/24 17:15 Completed TROPONIN Q4H Lab 02/16/24 21:15 Ordered Respiratory Therapy Assessment DAILY RT 02/16/24 13:43 Active Medication Summary Generic Name Dose Route Start Last Admin Trade Name Freq PRN Reason Stop Dose Admin Sodium Chloride 1,000 mls @ 100 mls/hr 02/16/24 13:15 02/16/24 13:27 Sodium Chloride 0.9% 1000 Ml IV 03/17/24 13:14 100 mls/hr .Q10H SALVADOR Administration Discontinued Medications Generic Name Dose Route Start Last Admin Trade Name Cassius PRN Reason Stop Dose Admin Albuterol Sulfate 2.5 mg 02/16/24 13:12 02/16/24 13:39 Albuterol Sulfate 2.5 Mg/3 Ml Neb IH 02/16/24 13:13 2.5 mg STAT ONE Administration Lab/Rad Data: Laboratory Result Diagrams 02/16/24 13:25 02/16/24 13:25 Laboratory Results 02/16/24 02/16/24 02/16/24 Range/Units 17:15 13:25 13:25 WBC (3.98-10.04) x10^3/uL RBC (3.93-5.22) x10^6/uL Hgb (11.2-15.7) g/dL Hct (34.1-44.9) % MCV (79.4-94.8) fL MCH (25.6-32.2) pg MCHC (32.2-35.5) g/dL RDW (11.7-14.4) % Plt Count (182-369) x10^3/uL MPV (9.4-12.3) fL Gran % (34.0-71.1) % Immature Gran % (Auto) (0.001-0.429) % Nucleat RBC Rel Count (0.00-0.2) % Eos # (Auto) (0.04-0.36) x10^3/uL Immature Gran # (Auto) (0.001-0.031) x10^3u/L Absolute Lymphs (auto) (1.18-3.74) x10^3/uL Absolute Monos (auto) (0.24-0.86) x10^3/uL Absolute Nucleated RBC (0.00-0.012) x10^3u/L Lymphocytes % (19.3-51.7) % Monocytes % (4.7-12.5) % Eosinophils % (0.7-5.8) % Basophils % (0.1-1.2) % Absolute Granulocytes (1.56-6.13) x10^3/uL Basophils # (0.01-0.08) x10^3/uL Sodium (135-145) mmol/L Potassium (3.5-5.1) mmol/L Chloride (98-107) mmol/L Carbon Dioxide (22-30) mmol/L Anion Gap (5-15) MEQ/L BUN (7-17) mg/dL Creatinine (0.52-1.04) mg/dL Estimated GFR ML/MIN Glucose (74-106) mg/dL Calcium (8.4-10.2) mg/dL Magnesium (1.6-2.3) mg/dL Total Bilirubin (0.2-1.3) mg/dL AST (14-36) U/L ALT (0-35) U/L Alkaline Phosphatase (38-126) U/L Troponin I 0.038 H* (0.000-0.033) ng/mL Serum Total Protein (6.3-8.2) g/dL Albumin (3.5-5.0) g/dL Influenza Type A Ag NEGATIVE (NEGATIVE) Influenza Type B Ag NEGATIVE (NEGATIVE) RSV (PCR) NEGATIVE (NEGATIVE) SARS-CoV-2 (PCR) NEGATIVE (NEGATIVE) Group A Strep Antibody NOT DETECTED (NEGATIVE) Slides for Path Review 02/16/24 02/16/24 02/16/24 Range/Units 13:25 13:25 13:25 WBC 8.9 (3.98-10.04) x10^3/uL RBC 3.36 L (3.93-5.22) x10^6/uL Hgb 7.3 L (11.2-15.7) g/dL Hct 25.5 L (34.1-44.9) % MCV 75.9 L (79.4-94.8) fL MCH 21.7 L (25.6-32.2) pg MCHC 28.6 L (32.2-35.5) g/dL RDW 16.2 H (11.7-14.4) % Plt Count 323 (182-369) x10^3/uL MPV 9.0 L (9.4-12.3) fL Gran % 81.4 H (34.0-71.1) % Immature Gran % (Auto) 0.4 (0.001-0.429) % Nucleat RBC Rel Count 0.4 H (0.00-0.2) % Eos # (Auto) 0.09 (0.04-0.36) x10^3/uL Immature Gran # (Auto) 0.04 H (0.001-0.031) x10^3u/L Absolute Lymphs (auto) 1.12 L (1.18-3.74) x10^3/uL Absolute Monos (auto) 0.37 (0.24-0.86) x10^3/uL Absolute Nucleated RBC 0.04 H (0.00-0.012) x10^3u/L Lymphocytes % 12.5 L (19.3-51.7) % Monocytes % 4.1 L (4.7-12.5) % Eosinophils % 1.0 (0.7-5.8) % Basophils % 0.6 (0.1-1.2) % Absolute Granulocytes 7.27 H (1.56-6.13) x10^3/uL Basophils # 0.05 (0.01-0.08) x10^3/uL Sodium 139 (135-145) mmol/L Potassium 3.7 (3.5-5.1) mmol/L Chloride 108 H (98-107) mmol/L Carbon Dioxide 23 (22-30) mmol/L Anion Gap 12.0 (5-15) MEQ/L BUN 14 (7-17) mg/dL Creatinine 0.63 (0.52-1.04) mg/dL Estimated GFR 91.9 ML/MIN Glucose 115 H (74-106) mg/dL Calcium 8.9 (8.4-10.2) mg/dL Magnesium 2.3 (1.6-2.3) mg/dL Total Bilirubin 0.30 (0.2-1.3) mg/dL AST 25 (14-36) U/L ALT 22 (0-35) U/L Alkaline Phosphatase 96 (38-126) U/L Troponin I 0.039 H* (0.000-0.033) ng/mL Serum Total Protein 6.9 (6.3-8.2) g/dL Albumin 3.8 (3.5-5.0) g/dL Influenza Type A Ag (NEGATIVE) Influenza Type B Ag (NEGATIVE) RSV (PCR) (NEGATIVE) SARS-CoV-2 (PCR) (NEGATIVE) Group A Strep Antibody (NEGATIVE) Slides for Path Review YES - Progress Progress: unchanged Discussed with Dr.: Other (Spoke with & discussed pt with Dr. Myers([id number]) - obs) Counseled pt/family regarding: lab results, diagnosis, rad results Medical Desision Making - Diagnostic Testing Diagnostic test were ordered, analyzed, and reviewed by me: Yes Radiological Interpretation: Teleradiologist Report - Departure Departure Disposition: Observation Clinical Impression: Dyspnea, Bilateral pleural effusions, Elevated troponin Condition: Stable Critical Care Time: No Referrals: WANDER MONTOYA [Primary Care Provider] - Follow up/PCP as directed
[2024-02-16] MEDS ORDERED: Sodium Chloride 0.9% 1000 ML 0 ML ONE (13:26)
[2024-02-16] MEDS: Sodium Chloride 0.9% 1000 ML 1,000 ML IV SCH ×2 (13:27→21:01)
[2024-02-16 13:28] LABS: Absolute Neutrophil Ct (ANC) 7.27 x10^3/uL (1.56-6.13); BASOPHIL % 0.6 % (0.1-1.2); Basophil (Absolute #) 0.05 x10^3/uL (0.01-0.08); Eosinophil (Absolute #) 0.09 x10^3/uL (0.04-0.36); Hematocrit 25.5 % (34.1-44.9); Hemoglobin 7.3 g/dL (11.2-15.7); IMMATURE GRAN # 0.04 x10^3u/L (0.001-0.031); IMMATURE GRAN % 0.4 % (0.001-0.429); Lymphocyte (Absolute #) 1.12 x10^3/uL (1.18-3.74); Lymphocytes % 12.5 % (19.3-51.7); Mean Cell Volume 75.9 fL (79.4-94.8); Mean Corpuscular Hemoglobin 21.7 pg (25.6-32.2); Mean Corpuscular Hgb Concent. 28.6 g/dL (32.2-35.5); Monocyte (Absolute #) 0.37 x10^3/uL (0.24-0.86); Monocytes % 4.1 % (4.7-12.5); NUCLEATED RBC # 0.04 x10^3u/L (0.00-0.012); NUCLEATED RBC % 0.4 % (0.00-0.2); Neutrophil % 81.4 % (34.0-71.1); Platelet Count 323 x10^3/uL (182-369); Red Blood Count 3.36 x10^6/uL (3.93-5.22); Red Cell Distribution Width 16.2 % (11.7-14.4); White Blood Count 8.9 x10^3/uL (3.98-10.04)
[2024-02-16] MEDS: PROVENTIL 2.5 MG/3 ML NEB IH ONE (13:39)
[2024-02-16 13:43] LABS: ALBUMIN 3.8 g/dL (3.5-5.0); BILIRUBIN,TOTAL 0.3 mg/dL (0.2-1.3); Calcium 8.9 mg/dL (8.4-10.2); Creatinine 1 0.63 mg/dL (0.52-1.04); EST GLOMERULAR FILTRATION RATE 91.9 ML/MIN; MAGNESIUM 2.3 mg/dL (1.6-2.3); Potassium 3.7 mmol/L (3.5-5.1); Total Protein 6.9 g/dL (6.3-8.2)
[2024-02-16 13:51] LABS: Slide Review 1 YES
[2024-02-16 14:08] LABS: INFLUENZA A NEGATIVE (NEGATIVE); INFLUENZA B NEGATIVE (NEGATIVE); RESPIRATORY SYNCTIAL VIRUS NEGATIVE (NEGATIVE); SARS-CoV-2 Xpert Express NEGATIVE (NEGATIVE)
--- NOTE | 2024-02-16 16:30 | XRAY ---
CLINICAL HISTORY: dyspnea COMPARISON: 11/18/2023 CT was reviewed TECHNIQUE: Contiguous 3.[address] images of the chest were acquired with the administration of intravenous contrast 100 cc ISovue 370. Coronal and sagittal reconstructions were obtained. One of the following dose reduction techniques was utilized for this exam: Automated exposure control, adjustment of the mA and/or kV according to patient size, and use of iterative reconstruction. FINDINGS: Mild centrilobular emphysematous changes predominantly involving both upper lobes. A probable perifissural nodule along the right horizontal fissure measured about 5 mm. No pulmonary mass, collapse, or consolidative changes. A small calcified nodule was seen in the right lower lobe. Bilateral mild pleural effusion was seen. Mild cardiomegaly and there is no pericardial effusion. No pathologically enlarged mediastinal, hilar, or axillary lymph node was identified. Calcified densities were seen in the left breast. The scanned upper abdomen is unremarkable. Thoracic spondylotic changes were seen. Spinal cord stimulator seen with wires projecting posteriorly. IMPRESSION: 1. No evidence of pulmonary embolism. 2. Mild centrilobular emphysematous changes predominantly involving both upper lobes. Stable finding. 3. A probable perifissural nodule along the right horizontal fissure measured about 5 mm. 4. No pulmonary mass, collapse, or consolidative changes. Stable finding. 5. Bilateral mild pleural effusion is seen. Interval new finding. 6. Mild cardiomegaly. 7. Calcified densities were seen in the left breast. Stable finding. [facility] ER was called at [phone] at 3:20 PM RADIATION SAFETY OFFICER, 02/16/[address] Jasso was informed about the medical findings. Electronically Signed by: Nikolay Downs MD. (02/16/2024 16:24:59 EDT)
--- NOTE | 2024-02-16 20:39 | PCM.HP ---
History of Present Illness - Chief Complaint Chief Complaint: shortness of breath Date: 02/16/24 History of Present Illness: Ms. CONCEPCION is a 74 year old female with a past medical history significant for hypertension, hyperlipidemia, colon cancer status post chemotherapy via port and COPD who presents to the hospital with complaints of shortness of breath. Upon arrival, she was found to have a slightly elevated troponin at 0.039. No fever/chills. No nausea, vomiting or diarrhea. No chest pain or palpitations. She had a CTA chest that was negative for PE, but did show some new mild bilateral pleural effusions. Repeat troponin came down slightly to 0.038, but she has been recommended for admission by ER. She is resting in bed, awake/alert. She has also had a decreasing hemoglobin over the past year from 11.9 down to 7.3 but no dark stools noted. Had C dif for the past three months, has been taking Vanco orally, last dose three days ago. - Review of Systems Constitutional: Fatigue, No Fever, No Chills Eyes: No Vision Changes, No Double Vision Respiratory: Short Of Breath, No Cough, No Orthopnea Cardiac: No Chest Pain, No Palpitations Abdominal/Gastrointestinal: No Nausea, No Vomiting, No Diarrhea Genitourinary Symptoms: No Dysuria, No Frequency, No Hematuria Musculoskeletal: No Back Pain Skin: No Rash Neurological: No Focal Weakness Psychological: No Suicidal Ideations Endocrine: No Polyuria, No Polydipsia Medications & Allergies Home Medications: Home Medication List Famotidine 20 mg [Pepcid 20 MG] 20 mg PO BID 07/20/20 [History Confirmed 02/16/24] Metoprolol Succinate 100 mg [Toprol Xl 100 MG] 100 mg PO DAILY 11/23/20 [History Confirmed 02/16/24] Metoclopramide HCl 10 mg [Reglan 10 MG] 10 mg PO TIDWMEALS #30 tablet 03/19/21 [Rx Confirmed 02/16/24] PANTOPRAZOLE 40 mg Tablet [Protonix 40MG Tablet] 40 mg PO DAILY #30 tab 03/24/21 [Rx Confirmed 02/16/24] Amitriptyline HCl 25 mg [Amitriptyline 25 mg Tablet] 25 mg PO TID 03/09/22 [History Confirmed 02/16/24] Furosemide 40 mg [Lasix 40 MG] 40 mg PO DAILY 03/09/22 [History Confirmed 02/16/24] Gabapentin 300 mg PO TID 03/09/22 [History Confirmed 02/16/24] Dupilumab [Dupixent Pen] 300 mg SQ CLARIFY 12/05/22 [History Confirmed 02/16/24] Fluticasone Propion/Salmeterol [Advair 100-50 Diskus] 1 blist IH DAILY 12/05/22 [History Confirmed 02/16/24] Cyanocobalamin (Vitamin B-12) [Vitamin B-12] 500 mcg PO DAILY 09/22/23 [History Confirmed 02/16/24] Potassium Chloride Tab* [Klor Con] 20 meq PO BID 09/22/23 [History Confirmed 02/16/24] Sucralfate 1 gm [Carafate 1 GM] 1 g PO TID 09/22/23 [History Confirmed 02/16/24] Aspirin/Acetaminophen/Caffeine [Excedrin Extra Strength Caplet] 2 each PO BID 12/05/23 [History Confirmed 02/16/24] Mv-Mn/Iron/Folic Acid/Herb 190 [Vitamin D3 Complete Caplet] 1 each PO DAILY 12/05/23 [History Confirmed 02/16/24] Folic Acid 1 mg [Folate 1 mg] 1 mg PO DAILY 01/23/24 [History Confirmed 02/16/24] Lactobacillus Acidophilus [Probiotic] 1 cap PO DAILY 01/23/24 [History Confirmed 02/16/24] Fecal Microbio Spore,Live-Brpk [Vowst] 4 tab PO DAILY 02/16/24 [History Confirmed 02/16/24] Allergies/Adverse Reactions: Allergies Allergy/AdvReac Type Severity Reaction Status Date / Time bee venom protein (honey bee) AdvReac Severe Anaphylactic Verified 02/16/24 12:58 Reaction acetaminophen AdvReac Mild Nausea Verified 02/16/24 12:58 [From Tylenol-Codeine] codeine AdvReac Mild Nausea Verified 02/16/24 12:58 [From Tylenol-Codeine] bandaids AdvReac Mild redness/swe Uncoded 02/16/24 12:58 lling - Past Medical History Past Medical History: Yes Neurological History: No Pertinent History ENT History: No Pertinent History Cardiac History: High Cholesterol, Hypertension Respiratory History: COPD Endocrine Medical History: No Pertinent History Musculoskelatal History: Rheumatoid Arthritis GI Medical History: Colorectal Cancer, Diverticulosis, GERD, Polyps History: No Pertinent History Pyscho-Social History: Anxiety Reproductive Disorders: Breast Cancer Comment: C-Diff (Dr. Epstein) - Past Surgical History Past Surgical History: Yes Neuro Surgical History: No Pertinent History Cardiac History: No Pertinent History Respiratory Surgery: No Pertinent History GI Surgical History: Colon Resection, Hernia Repair, Other Genitourinary Surgical Hx: No Pertinent History Musculskeletal Surgical Hx: Joint Replacement, Orthopedic Surgery Female Surgical History: Tubal Ligation, Mastectomy Other Surgical History: Bjorn knee replacement, bariatric surgery, breast cancer with partial mastectomy left, lumpectomy right breast, port placed Significant Family History: heart disease, cancer - Social History Smoking Status: Former smoker How long have you smoked: 40 yrs Exposure to second hand smoke: No Alcohol: Occasionally Drug Use: none - Social Determinants of Health Will the patient participate in the screening: Yes Do you worry about a steady place to live?: No Do you have any problems with any of the following?: No known problems In the past 12 months,have you had to go without utilities?: No Have you or anyone in your house had to go without enough: No Transportation Issues: No Has anyone in your support network made you feel unsafe?: No - Physical Exam Vital Signs: Vital Signs - 24 hr Temp Pulse Resp BP BP Pulse Ox 02/16/24 19:30 98 02/16/24 19:30 104 H 22 133/88 92 L 02/16/24 19:00 95 H 18 147/79 91 L 02/16/24 18:30 105 H 20 148/83 91 L 02/16/24 18:00 107 H 17 125/94 94 L 02/16/24 17:30 112 H 19 154/85 94 L 02/16/24 17:00 106 H 17 135/67 02/16/24 16:30 94 H 16 135/81 93 L 02/16/24 16:00 99 H 23 133/71 92 L 02/16/24 15:30 99 H 19 131/72 93 L 02/16/24 15:00 99 H 20 129/83 90 L 02/16/24 14:30 98 H 18 146/75 92 L 02/16/24 14:00 142/68 96 02/16/24 13:39 96 H 21 95 02/16/24 13:30 94 H 15 145/84 02/16/24 13:01 97 H 18 135/90 94 L 02/16/24 12:42 110 H 12 129/62 93 L 02/16/24 12:33 97.7 F 106 H 30 H 129/62 98 General Appearance: mild distress Neurologic Exam: alert, oriented x 3 Ears, Nose, Throat Exam: moist mucous membranes Neck Exam: non-tender, supple Respiratory Exam: No respiratory distress Cardiovascular Exam: regular rate/rhythm Gastrointestinal/Abdomen Exam: soft Back Exam: No rash Extremity Exam: No pedal edema, No swelling Skin Exam: warm Results - Labs Lab/Micro Results: Lab Results-Last 24 Hours 02/16/24 02/16/24 02/16/24 Range/Units 13:25 13:25 13:25 WBC 8.9 (3.98-10.04) x10^3/uL RBC 3.36 L (3.93-5.22) x10^6/uL Hgb 7.3 L (11.2-15.7) g/dL Hct 25.5 L (34.1-44.9) % MCV 75.9 L (79.4-94.8) fL MCH 21.7 L (25.6-32.2) pg MCHC 28.6 L (32.2-35.5) g/dL RDW 16.2 H (11.7-14.4) % Plt Count 323 (182-369) x10^3/uL MPV 9.0 L (9.4-12.3) fL Gran % 81.4 H (34.0-71.1) % Immature Gran % (Auto) 0.4 (0.001-0.429) % Nucleat RBC Rel Count 0.4 H (0.00-0.2) % Eos # (Auto) 0.09 (0.04-0.36) x10^3/uL Immature Gran # (Auto) 0.04 H (0.001-0.031) x10^3u/L Absolute Lymphs (auto) 1.12 L (1.18-3.74) x10^3/uL Absolute Monos (auto) 0.37 (0.24-0.86) x10^3/uL Absolute Nucleated RBC 0.04 H (0.00-0.012) x10^3u/L Lymphocytes % 12.5 L (19.3-51.7) % Monocytes % 4.1 L (4.7-12.5) % Eosinophils % 1.0 (0.7-5.8) % Basophils % 0.6 (0.1-1.2) % Absolute Granulocytes 7.27 H (1.56-6.13) x10^3/uL Basophils # 0.05 (0.01-0.08) x10^3/uL Sodium 139 (135-145) mmol/L Potassium 3.7 (3.5-5.1) mmol/L Chloride 108 H (98-107) mmol/L Carbon Dioxide 23 (22-30) mmol/L Anion Gap 12.0 (5-15) MEQ/L BUN 14 (7-17) mg/dL Creatinine 0.63 (0.52-1.04) mg/dL Estimated GFR 91.9 ML/MIN Glucose 115 H (74-106) mg/dL Calcium 8.9 (8.4-10.2) mg/dL Magnesium 2.3 (1.6-2.3) mg/dL Total Bilirubin 0.30 (0.2-1.3) mg/dL AST 25 (14-36) U/L ALT 22 (0-35) U/L Alkaline Phosphatase 96 (38-126) U/L Troponin I 0.039 H* (0.000-0.033) ng/mL Serum Total Protein 6.9 (6.3-8.2) g/dL Albumin 3.8 (3.5-5.0) g/dL Influenza Type A Ag (NEGATIVE) Influenza Type B Ag (NEGATIVE) RSV (PCR) (NEGATIVE) SARS-CoV-2 (PCR) (NEGATIVE) Group A Strep Antibody (NEGATIVE) Slides for Path Review YES 02/16/24 02/16/24 02/16/24 Range/Units 13:25 13:25 17:15 WBC (3.98-10.04) x10^3/uL RBC (3.93-5.22) x10^6/uL Hgb (11.2-15.7) g/dL Hct (34.1-44.9) % MCV (79.4-94.8) fL MCH (25.6-32.2) pg MCHC (32.2-35.5) g/dL RDW (11.7-14.4) % Plt Count (182-369) x10^3/uL MPV (9.4-12.3) fL Gran % (34.0-71.1) % Immature Gran % (Auto) (0.001-0.429) % Nucleat RBC Rel Count (0.00-0.2) % Eos # (Auto) (0.04-0.36) x10^3/uL Immature Gran # (Auto) (0.001-0.031) x10^3u/L Absolute Lymphs (auto) (1.18-3.74) x10^3/uL Absolute Monos (auto) (0.24-0.86) x10^3/uL Absolute Nucleated RBC (0.00-0.012) x10^3u/L Lymphocytes % (19.3-51.7) % Monocytes % (4.7-12.5) % Eosinophils % (0.7-5.8) % Basophils % (0.1-1.2) % Absolute Granulocytes (1.56-6.13) x10^3/uL Basophils # (0.01-0.08) x10^3/uL Sodium (135-145) mmol/L Potassium (3.5-5.1) mmol/L Chloride (98-107) mmol/L Carbon Dioxide (22-30) mmol/L Anion Gap (5-15) MEQ/L BUN (7-17) mg/dL Creatinine (0.52-1.04) mg/dL Estimated GFR ML/MIN Glucose (74-106) mg/dL Calcium (8.4-10.2) mg/dL Magnesium (1.6-2.3) mg/dL Total Bilirubin (0.2-1.3) mg/dL AST (14-36) U/L ALT (0-35) U/L Alkaline Phosphatase (38-126) U/L Troponin I 0.038 H* (0.000-0.033) ng/mL Serum Total Protein (6.3-8.2) g/dL Albumin (3.5-5.0) g/dL Influenza Type A Ag NEGATIVE (NEGATIVE) Influenza Type B Ag NEGATIVE (NEGATIVE) RSV (PCR) NEGATIVE (NEGATIVE) SARS-CoV-2 (PCR) NEGATIVE (NEGATIVE) Group A Strep Antibody NOT DETECTED (NEGATIVE) Slides for Path Review - Radiology Impressions Radiology Exams & Impressions: Radiology Procedures Category Date Time Status CHEST WITH CONTRAST [CT] Stat Exams 02/16/24 13:13 Completed - Other Procedures and Tests Respiratory Therapy 02/16/24 20:26 EKG REPEAT IN AM Oxygen Nasal Cannula 2 lpm Respiratory Therapy Consult ONCE Assessment/Plan (1) Dyspnea Current Visit: Yes Status: Acute Assessment & Plan: Likely from COPD exacerbation +/- pleural effusions 1. Attempt diuresis 2. Duonebs/steroids, supplemental O2 3. Follow up CXR, consider echo 4. Monitor O2 sats Code(s): R06.00 - DYSPNEA, UNSPECIFIED (2) Elevated troponin Current Visit: Yes Status: Acute Assessment & Plan: Trending downward, suspect cardiac strain from fluid overload/severe anemia 1. Trend troponin 2. Telemetry 3. Consider echo Code(s): R79.89 - OTHER SPECIFIED ABNORMAL FINDINGS OF BLOOD CHEMISTRY (3) Anemia Current Visit: No Status: Acute Assessment & Plan: Likely from iron deficiency, she has seen analytics associate, is supposed to start iron infusions three times a week 1. Trend H/H 2. Check iron profile, b12, folate 3. Start IV iron as per outpatient dose Code(s): D64.9 - ANEMIA, UNSPECIFIED (4) Clostridioides difficile infection Current Visit: No Status: Acute Assessment & Plan: Developed c dif from antibiotics to treat cellulitis, initially treated with Flagyl, switched to oral Vanco by ID doctor, last dose 1. Will hold antibiotics 2. Recheck stool for C dif Code(s): A49.8 - OTHER BACTERIAL INFECTIONS OF UNSPECIFIED SITE (5) Colon cancer Current Visit: No Status: Chronic Qualifiers: Colon location: overlapping sites Qualified Code(s): C18.8 - Malignant neoplasm of overlapping sites of colon Assessment & Plan: Status post hemicolectomy and chemo Telemedicine Encounter - Telemedicine Encounter Telemedicine Encounter: "The entirety of this encounter was performed via Telemedicine" This visit was performed using real-time audio and video connection between my location and thepatients locationwith the assistance of a surrogateat the patients location. Written or verbal consent was obtained from the patient/guardian to perform this visit [email or web address]. Any patient questions regarding the telemedicine interaction were answered.
[2024-02-16] MEDS ORDERED: Sodium Chloride 0.9% 1000 ML 1,000 ML ONE (20:52)
[2024-02-16] MEDS ORDERED: Sterile H2O 10 ml IJ ONE (22:12)
[2024-02-16] MEDS ORDERED: solu-MEDROL ONE (22:12)
[2024-02-16] MEDS ORDERED: NEURONTIN ONE ×2 (22:12→23:44)
[2024-02-16] MEDS ORDERED: AMITRIPTYLINE 25 MG TABLET ONE (22:12)
[2024-02-16] MEDS: TYLENOL 325 MG PO PRN (22:32)
[2024-02-16] MEDS: Lasix 40 MG/4 ML IV SCH (22:34)
[2024-02-16] MEDS: solu-MEDROL 30 MG, Sterile H2O 10 ml 1 ML IV SCH (22:34)
[2024-02-16] MEDS: AMITRIPTYLINE 25 MG TABLET PO SCH (22:35)
[2024-02-16] MEDS: NEURONTIN PO SCH (22:35)
[2024-02-16] MEDS: Carafate 1 GM PO SCH (22:54)
[2024-02-16] MEDS ORDERED: Sodium Chloride 0.9% 100 ML ONE (23:22)
[2024-02-16] MEDS: Venofer 100 MG/5 ML*** 200 MG in Sodium Chloride 0.9% 100 ML IV SCH (23:48)
[2024-02-16] MEDS: ULTRAM 50 MG PO PRN (23:48)
[2024-02-16] MEDS: AMITRIPTYLINE 25 MG TABLET PO ONE (23:48)
[2024-02-16] MEDS: NEURONTIN PO ONE (23:48)
[2024-02-17] MEDS ORDERED: DUONEB 0.5-3 MG/3 ml Neb IH SCH (01:00)
[2024-02-17] MEDS: DUONEB 0.5-3 MG/3 ml Neb IH PRN (01:05)
[2024-02-17 04:52] LABS: Absolute Neutrophil Ct (ANC) 6.77 x10^3/uL (1.56-6.13); BASOPHIL % 0.1 % (0.1-1.2); Basophil (Absolute #) 0.01 x10^3/uL (0.01-0.08); Eosinophil % 0.1 % (0.7-5.8); Eosinophil (Absolute #) 0.01 x10^3/uL (0.04-0.36); Hematocrit 24.7 % (34.1-44.9); Hemoglobin 7.1 g/dL (11.2-15.7); IMMATURE GRAN # 0.05 x10^3u/L (0.001-0.031); IMMATURE GRAN % 0.7 % (0.001-0.429); Lymphocyte (Absolute #) 0.58 x10^3/uL (1.18-3.74); Lymphocytes % 7.7 % (19.3-51.7); Mean Cell Volume 74.8 fL (79.4-94.8); Mean Corpuscular Hemoglobin 21.5 pg (25.6-32.2); Mean Corpuscular Hgb Concent. 28.7 g/dL (32.2-35.5); Mean Platelet Volume 9.4 fL (9.4-12.3); Monocyte (Absolute #) 0.11 x10^3/uL (0.24-0.86); Monocytes % 1.5 % (4.7-12.5); NUCLEATED RBC # 0.03 x10^3u/L (0.00-0.012); NUCLEATED RBC % 0.4 % (0.00-0.2); Neutrophil % 89.9 % (34.0-71.1); Platelet Count 320 x10^3/uL (182-369); Red Cell Distribution Width 16.1 % (11.7-14.4); White Blood Count 7.5 x10^3/uL (3.98-10.04)
[2024-02-17 05:16] LABS: ALBUMIN 3.7 g/dL (3.5-5.0); ANION GAP 13.2 MEQ/L (5-15); BILIRUBIN,TOTAL 0.5 mg/dL (0.2-1.3); Calcium 8.8 mg/dL (8.4-10.2); Creatinine 1 0.61 mg/dL (0.52-1.04); EST GLOMERULAR FILTRATION RATE 92.6 ML/MIN; MAGNESIUM 2.2 mg/dL (1.6-2.3); Potassium 3.4 mmol/L (3.5-5.1); Total Protein 6.7 g/dL (6.3-8.2)
[2024-02-17] MEDS ORDERED: DUONEB 0.5-3 MG/3 ml Neb IH PRN (06:56)
[2024-02-17 07:02] LABS: Iron 436 ug/dL (37-170); Iron Saturation 104 % (20-39); TIBC 419 ug/dL (265-462)
[2024-02-17] MEDS ORDERED: MEDICATION INTERVENTION MC SCH (07:15)
[2024-02-17 07:33] LABS: Slide Review 1 YES
[2024-02-17] MEDS ORDERED: [UNRECOGNIZED DRUG - OTHER] PO SCH (10:00)
[2024-02-17] MEDS ORDERED: NON-FORMULARY ITEM (Fluticasone Propion/Salmeterol [Advair 100-50 Diskus] 1 EACH Blst.W.De IH SCH (10:00)
[2024-02-17] MEDS ORDERED: NON-FORMULARY ITEM (Cholecalciferol (Vitamin D3) [Vitamin D3] 1,250 MCG Tablet) PO SCH (10:00)
[2024-02-17] MEDS: Toprol Xl 100 MG PO SCH (10:11)
[2024-02-17] MEDS: NEURONTIN PO SCH ×2 (10:11→21:57)
[2024-02-17] MEDS: VITAMIN D PO SCH (10:11)
[2024-02-17] MEDS: Protonix 40MG Tablet PO SCH (10:11)
[2024-02-17] MEDS: ENOXAPARIN SODIUM SQ SCH (10:12)
[2024-02-17] MEDS: FOLATE 1 MG PO SCH (10:12)
[2024-02-17] MEDS: Lasix 40 MG/4 ML IV SCH ×2 (10:12→16:26)
[2024-02-17] MEDS: Vitamin B-12 500 MCG PO SCH (10:12)
[2024-02-17] MEDS: PATIENT OWN MEDICATION PO SCH (10:13)
[2024-02-17] MEDS ORDERED: Klor Con ONE (10:14)
[2024-02-17] MEDS: Klor Con PO ONE (10:16)
--- NOTE | 2024-02-17 11:06 | PCM.NOTE ---
Date and Time: 02/17/24 1059 Subjective Assessment: 02/17/24 Ms. CONCEPCION is a 74 year old female with a past medical history significant for hypertension, hyperlipidemia, colon cancer status post chemotherapy via port and COPD. She presented to the hospital on 02/16/24 with complaints of shortness of breath. Upon arrival, she was found to have a slightly elevated troponin at 0.039. No fever/chills. No nausea, vomiting or diarrhea. No chest pain or palpitations. She had a CTA chest that was negative for PE, but did show some new mild bilateral pleural effusions. She has also had a decreasing hemoglobin over the past year from 11.9 down to 7.3 but no dark stools noted. Iron has been low and she has been receiving Op iron infusions that have been continued IP. She reports she has had C- diff for the past three months, has been taking Vanco orally, last dose three days ago. She was then placed on Vowst by infectious disease- Dr. Gonzalez. She reports she has not had any loose stools since starting this medication. She is in isolation for c-diff hx. Echo to be done today. Continue Lasix 40 IV BID. She remains on 2lNC @ 93%. Will recheck CXR in AM. She will need an appointment with cardiology OP at d/c. She reports she has never seen one in the past and has no heart hx. She denies CP, abd. pain, N/V/D. - Review of Systems Constitutional: No Fever, No Chills Eyes: No Symptoms Ears, Nose, & Throat: No Symptoms Respiratory: Short Of Breath, No Cough Cardiac: No Chest Pain, No Edema, No Syncope Abdominal/Gastrointestinal: No Abdominal Pain, No Nausea, No Vomiting, No Diarrhea Genitourinary Symptoms: No Dysuria Musculoskeletal: No Back Pain, No Neck Pain Skin: No Rash Neurological: No Dizziness, No Focal Weakness, No Sensory Changes Psychological: No Symptoms Endocrine: No Symptoms Hematologic/Lymphatic: No Symptoms Immunological/Allergic: No Symptoms Objective Exam General Appearance: no apparent distress, alert, obese Neurologic Exam: alert, oriented x 3, cooperative, normal mood/affect, nml cerebellar function, sensation nml, No motor deficits Skin Exam: warm, dry, pale Wound Assessment: Skin/Wound Assessment Wound/Incision Assessment Start: 02/16/24 22:02 Text: Status: Active Freq: Q6H Protocol: Document 02/17/24 02:00 AK (Rec: 02/17/24 04:35 AK [id number]) Wound/Incision Assessment Medial Abdomen Wound Assessment Shift Assessment Wound Type red area patient reports to be eczema Wound Stage Non Pressure Wound Drainage Amount Minimal Drainage Description bloody Drainage Odor None/Absent General Appearance Reddened Wound Bed Greatest Portion Red (Granulation) Wound Bed Lesser Portion Red (Granulation) Surrounding Tissue Knox Comment JENNIFER - reddened/raw area patient reports to be eczema flare up Eye Exam: PERRL, EOMI, eyes nml inspection Ears, Nose, Throat Exam: normal ENT inspection, pharynx normal, moist mucous membranes Neck Exam: normal inspection, non-tender, supple, full range of motion Respiratory Exam: normal breath sounds, lungs clear, crackles/rales (BLLL), No respiratory distress Cardiovascular Exam: regular rate/rhythm, normal heart sounds Gastrointestinal/Abdomen Exam: soft, No tenderness, No mass Extremity Exam: normal inspection, normal range of motion Back Exam: normal inspection, normal range of motion, No CVA tenderness, No vertebral tenderness Pelvic Exam: deferred Rectal Exam: deferred Objective Data Vital Signs: Vital Signs - 24 hr Temp Pulse Resp BP BP Pulse Ox 02/17/24 07:20 98 H 16 93 L 02/17/24 07:16 96.9 F 95 H 15 119/62 96 02/17/24 04:00 97.8 F 94 H 20 119/58 96 02/17/24 01:49 101 H 24 99 02/16/24 23:40 98.3 F 105 H 22 112/66 96 02/16/24 22:23 93 L 02/16/24 21:10 98.1 F 113 H 24 127/58 94 L 02/16/24 20:26 106 H 91 L 02/16/24 19:30 98 02/16/24 19:30 104 H 22 133/88 92 L 02/16/24 19:00 95 H 18 147/79 91 L 02/16/24 18:30 105 H 20 148/83 91 L 02/16/24 18:00 107 H 17 125/94 94 L 02/16/24 17:30 112 H 19 154/85 94 L 02/16/24 17:00 106 H 17 135/67 02/16/24 16:30 94 H 16 135/81 93 L 02/16/24 16:00 99 H 23 133/71 92 L 02/16/24 15:30 99 H 19 131/72 93 L 02/16/24 15:00 99 H 20 129/83 90 L 02/16/24 14:30 98 H 18 146/75 92 L 02/16/24 14:00 142/68 96 02/16/24 13:39 96 H 21 95 02/16/24 13:30 94 H 15 145/84 02/16/24 13:01 97 H 18 135/90 94 L 02/16/24 12:42 110 H 12 129/62 93 L 02/16/24 12:33 97.7 F 106 H 30 H 129/62 98 Pain Assessment - Last Documented Pain Intensity 0 Pain Scale Used 0-10 Pain Scale Intake and Output: Intake & Output 02/14/24 02/15/24 02/16/24 02/17/24 11:59 11:59 11:59 11:59 Intake Total 1480 Balance 1480 Weight 116.1 kg Lab Results: Lab Results-Last 24 Hours 02/16/24 02/16/24 02/16/24 Range/Units 13:25 13:25 13:25 WBC 8.9 (3.98-10.04) x10^3/uL RBC 3.36 L (3.93-5.22) x10^6/uL Hgb 7.3 L (11.2-15.7) g/dL Hct 25.5 L (34.1-44.9) % MCV 75.9 L (79.4-94.8) fL MCH 21.7 L (25.6-32.2) pg MCHC 28.6 L (32.2-35.5) g/dL RDW 16.2 H (11.7-14.4) % Plt Count 323 (182-369) x10^3/uL MPV 9.0 L (9.4-12.3) fL Gran % 81.4 H (34.0-71.1) % Immature Gran % (Auto) 0.4 (0.001-0.429) % Nucleat RBC Rel Count 0.4 H (0.00-0.2) % Eos # (Auto) 0.09 (0.04-0.36) x10^3/uL Immature Gran # (Auto) 0.04 H (0.001-0.031) x10^3u/L Absolute Lymphs (auto) 1.12 L (1.18-3.74) x10^3/uL Absolute Monos (auto) 0.37 (0.24-0.86) x10^3/uL Absolute Nucleated RBC 0.04 H (0.00-0.012) x10^3u/L Lymphocytes % 12.5 L (19.3-51.7) % Monocytes % 4.1 L (4.7-12.5) % Eosinophils % 1.0 (0.7-5.8) % Basophils % 0.6 (0.1-1.2) % Absolute Granulocytes 7.27 H (1.56-6.13) x10^3/uL Basophils # 0.05 (0.01-0.08) x10^3/uL Sodium 139 (135-145) mmol/L Potassium 3.7 (3.5-5.1) mmol/L Chloride 108 H (98-107) mmol/L Carbon Dioxide 23 (22-30) mmol/L Anion Gap 12.0 (5-15) MEQ/L BUN 14 (7-17) mg/dL Creatinine 0.63 (0.52-1.04) mg/dL Estimated GFR 91.9 ML/MIN Glucose 115 H (74-106) mg/dL Hemoglobin A1c (4.5-6.0) % Calcium 8.9 (8.4-10.2) mg/dL Magnesium 2.3 (1.6-2.3) mg/dL Iron (37-170) ug/dL TIBC (265-462) ug/dL Iron Saturation (20-39) % Ferritin (11.1-264) ng/mL Total Bilirubin 0.30 (0.2-1.3) mg/dL AST 25 (14-36) U/L ALT 22 (0-35) U/L Alkaline Phosphatase 96 (38-126) U/L Troponin I 0.039 H* (0.000-0.033) ng/mL NT-Pro-B Natriuret Pep (<300) pg/mL Serum Total Protein 6.9 (6.3-8.2) g/dL Albumin 3.8 (3.5-5.0) g/dL Prealbumin (17.6-36.0) mg/dL Influenza Type A Ag (NEGATIVE) Influenza Type B Ag (NEGATIVE) RSV (PCR) (NEGATIVE) SARS-CoV-2 (PCR) (NEGATIVE) Group A Strep Antibody (NEGATIVE) Slides for Path Review YES 02/16/24 02/16/24 02/16/24 Range/Units 13:25 13:25 17:15 WBC (3.98-10.04) x10^3/uL RBC (3.93-5.22) x10^6/uL Hgb (11.2-15.7) g/dL Hct (34.1-44.9) % MCV (79.4-94.8) fL MCH (25.6-32.2) pg MCHC (32.2-35.5) g/dL RDW (11.7-14.4) % Plt Count (182-369) x10^3/uL MPV (9.4-12.3) fL Gran % (34.0-71.1) % Immature Gran % (Auto) (0.001-0.429) % Nucleat RBC Rel Count (0.00-0.2) % Eos # (Auto) (0.04-0.36) x10^3/uL Immature Gran # (Auto) (0.001-0.031) x10^3u/L Absolute Lymphs (auto) (1.18-3.74) x10^3/uL Absolute Monos (auto) (0.24-0.86) x10^3/uL Absolute Nucleated RBC (0.00-0.012) x10^3u/L Lymphocytes % (19.3-51.7) % Monocytes % (4.7-12.5) % Eosinophils % (0.7-5.8) % Basophils % (0.1-1.2) % Absolute Granulocytes (1.56-6.13) x10^3/uL Basophils # (0.01-0.08) x10^3/uL Sodium (135-145) mmol/L Potassium (3.5-5.1) mmol/L Chloride (98-107) mmol/L Carbon Dioxide (22-30) mmol/L Anion Gap (5-15) MEQ/L BUN (7-17) mg/dL Creatinine (0.52-1.04) mg/dL Estimated GFR ML/MIN Glucose (74-106) mg/dL Hemoglobin A1c (4.5-6.0) % Calcium (8.4-10.2) mg/dL Magnesium (1.6-2.3) mg/dL Iron (37-170) ug/dL TIBC (265-462) ug/dL Iron Saturation (20-39) % Ferritin (11.1-264) ng/mL Total Bilirubin (0.2-1.3) mg/dL AST (14-36) U/L ALT (0-35) U/L Alkaline Phosphatase (38-126) U/L Troponin I 0.038 H* (0.000-0.033) ng/mL NT-Pro-B Natriuret Pep (<300) pg/mL Serum Total Protein (6.3-8.2) g/dL Albumin (3.5-5.0) g/dL Prealbumin (17.6-36.0) mg/dL Influenza Type A Ag NEGATIVE (NEGATIVE) Influenza Type B Ag NEGATIVE (NEGATIVE) RSV (PCR) NEGATIVE (NEGATIVE) SARS-CoV-2 (PCR) NEGATIVE (NEGATIVE) Group A Strep Antibody NOT DETECTED (NEGATIVE) Slides for Path Review 02/16/24 02/17/24 02/17/24 Range/Units 21:30 04:30 04:30 WBC 7.5 (3.98-10.04) x10^3/uL RBC 3.30 L (3.93-5.22) x10^6/uL Hgb 7.1 L (11.2-15.7) g/dL Hct 24.7 L (34.1-44.9) % MCV 74.8 L (79.4-94.8) fL MCH 21.5 L (25.6-32.2) pg MCHC 28.7 L (32.2-35.5) g/dL RDW 16.1 H (11.7-14.4) % Plt Count 320 (182-369) x10^3/uL MPV 9.4 (9.4-12.3) fL Gran % 89.9 H (34.0-71.1) % Immature Gran % (Auto) 0.7 H (0.001-0.429) % Nucleat RBC Rel Count 0.4 H (0.00-0.2) % Eos # (Auto) 0.01 L (0.04-0.36) x10^3/uL Immature Gran # (Auto) 0.05 H (0.001-0.031) x10^3u/L Absolute Lymphs (auto) 0.58 L (1.18-3.74) x10^3/uL Absolute Monos (auto) 0.11 L (0.24-0.86) x10^3/uL Absolute Nucleated RBC 0.03 H (0.00-0.012) x10^3u/L Lymphocytes % 7.7 L (19.3-51.7) % Monocytes % 1.5 L (4.7-12.5) % Eosinophils % 0.1 L (0.7-5.8) % Basophils % 0.1 (0.1-1.2) % Absolute Granulocytes 6.77 H (1.56-6.13) x10^3/uL Basophils # 0.01 (0.01-0.08) x10^3/uL Sodium 137 (135-145) mmol/L Potassium 3.4 L (3.5-5.1) mmol/L Chloride 103 (98-107) mmol/L Carbon Dioxide 24 (22-30) mmol/L Anion Gap 13.2 (5-15) MEQ/L BUN 15 (7-17) mg/dL Creatinine 0.61 (0.52-1.04) mg/dL Estimated GFR 92.6 ML/MIN Glucose 177 H (74-106) mg/dL Hemoglobin A1c (4.5-6.0) % Calcium 8.8 (8.4-10.2) mg/dL Magnesium 2.2 (1.6-2.3) mg/dL Iron (37-170) ug/dL TIBC (265-462) ug/dL Iron Saturation (20-39) % Ferritin (11.1-264) ng/mL Total Bilirubin 0.50 (0.2-1.3) mg/dL AST 33 (14-36) U/L ALT 29 (0-35) U/L Alkaline Phosphatase 81 (38-126) U/L Troponin I 0.036 H* (0.000-0.033) ng/mL NT-Pro-B Natriuret Pep (<300) pg/mL Serum Total Protein 6.7 (6.3-8.2) g/dL Albumin 3.7 (3.5-5.0) g/dL Prealbumin (17.6-36.0) mg/dL Influenza Type A Ag (NEGATIVE) Influenza Type B Ag (NEGATIVE) RSV (PCR) (NEGATIVE) SARS-CoV-2 (PCR) (NEGATIVE) Group A Strep Antibody (NEGATIVE) Slides for Path Review YES 02/17/24 02/17/24 02/17/24 Range/Units 04:30 04:30 04:30 WBC (3.98-10.04) x10^3/uL RBC (3.93-5.22) x10^6/uL Hgb (11.2-15.7) g/dL Hct (34.1-44.9) % MCV (79.4-94.8) fL MCH (25.6-32.2) pg MCHC (32.2-35.5) g/dL RDW (11.7-14.4) % Plt Count (182-369) x10^3/uL MPV (9.4-12.3) fL Gran % (34.0-71.1) % Immature Gran % (Auto) (0.001-0.429) % Nucleat RBC Rel Count (0.00-0.2) % Eos # (Auto) (0.04-0.36) x10^3/uL Immature Gran # (Auto) (0.001-0.031) x10^3u/L Absolute Lymphs (auto) (1.18-3.74) x10^3/uL Absolute Monos (auto) (0.24-0.86) x10^3/uL Absolute Nucleated RBC (0.00-0.012) x10^3u/L Lymphocytes % (19.3-51.7) % Monocytes % (4.7-12.5) % Eosinophils % (0.7-5.8) % Basophils % (0.1-1.2) % Absolute Granulocytes (1.56-6.13) x10^3/uL Basophils # (0.01-0.08) x10^3/uL Sodium (135-145) mmol/L Potassium (3.5-5.1) mmol/L Chloride (98-107) mmol/L Carbon Dioxide (22-30) mmol/L Anion Gap (5-15) MEQ/L BUN (7-17) mg/dL Creatinine (0.52-1.04) mg/dL Estimated GFR ML/MIN Glucose (74-106) mg/dL Hemoglobin A1c (4.5-6.0) % Calcium (8.4-10.2) mg/dL Magnesium (1.6-2.3) mg/dL Iron 436 H (37-170) ug/dL TIBC 419 (265-462) ug/dL Iron Saturation 104 H (20-39) % Ferritin 6.72 L (11.1-264) ng/mL Total Bilirubin (0.2-1.3) mg/dL AST (14-36) U/L ALT (0-35) U/L Alkaline Phosphatase (38-126) U/L Troponin I (0.000-0.033) ng/mL NT-Pro-B Natriuret Pep (<300) pg/mL Serum Total Protein (6.3-8.2) g/dL Albumin (3.5-5.0) g/dL Prealbumin 14.93 L (17.6-36.0) mg/dL Influenza Type A Ag (NEGATIVE) Influenza Type B Ag (NEGATIVE) RSV (PCR) (NEGATIVE) SARS-CoV-2 (PCR) (NEGATIVE) Group A Strep Antibody (NEGATIVE) Slides for Path Review 02/17/24 02/17/24 Range/Units 04:30 04:30 WBC (3.98-10.04) x10^3/uL RBC (3.93-5.22) x10^6/uL Hgb (11.2-15.7) g/dL Hct (34.1-44.9) % MCV (79.4-94.8) fL MCH (25.6-32.2) pg MCHC (32.2-35.5) g/dL RDW (11.7-14.4) % Plt Count (182-369) x10^3/uL MPV (9.4-12.3) fL Gran % (34.0-71.1) % Immature Gran % (Auto) (0.001-0.429) % Nucleat RBC Rel Count (0.00-0.2) % Eos # (Auto) (0.04-0.36) x10^3/uL Immature Gran # (Auto) (0.001-0.031) x10^3u/L Absolute Lymphs (auto) (1.18-3.74) x10^3/uL Absolute Monos (auto) (0.24-0.86) x10^3/uL Absolute Nucleated RBC (0.00-0.012) x10^3u/L Lymphocytes % (19.3-51.7) % Monocytes % (4.7-12.5) % Eosinophils % (0.7-5.8) % Basophils % (0.1-1.2) % Absolute Granulocytes (1.56-6.13) x10^3/uL Basophils # (0.01-0.08) x10^3/uL Sodium (135-145) mmol/L Potassium (3.5-5.1) mmol/L Chloride (98-107) mmol/L Carbon Dioxide (22-30) mmol/L Anion Gap (5-15) MEQ/L BUN (7-17) mg/dL Creatinine (0.52-1.04) mg/dL Estimated GFR ML/MIN Glucose (74-106) mg/dL Hemoglobin A1c 5.64 (4.5-6.0) % Calcium (8.4-10.2) mg/dL Magnesium (1.6-2.3) mg/dL Iron (37-170) ug/dL TIBC (265-462) ug/dL Iron Saturation (20-39) % Ferritin (11.1-264) ng/mL Total Bilirubin (0.2-1.3) mg/dL AST (14-36) U/L ALT (0-35) U/L Alkaline Phosphatase (38-126) U/L Troponin I (0.000-0.033) ng/mL NT-Pro-B Natriuret Pep 4910 (<300) pg/mL Serum Total Protein (6.3-8.2) g/dL Albumin (3.5-5.0) g/dL Prealbumin (17.6-36.0) mg/dL Influenza Type A Ag (NEGATIVE) Influenza Type B Ag (NEGATIVE) RSV (PCR) (NEGATIVE) SARS-CoV-2 (PCR) (NEGATIVE) Group A Strep Antibody (NEGATIVE) Slides for Path Review Radiology Exams: Radiology Procedures Category Date Time Status CHEST WITH CONTRAST [CT] Stat Exams 02/16/24 13:13 Completed ECHO W/2D AND DOPPLER [US] Routine Exams 02/17/24 10:01 Ordered Multi-Disciplinary Progress Notes: Multi-Disciplinary Progress Notes 02/16/24 22:27 Respiratory Note by Arlene Almeida This RT assessed pt for respiratory services. Pt stated that she does not want to take the nebulizer treatments as scheduled. She stated she has a difficult time sleeping and once she falls asleep that she does not want to be awakened. This RT informed pt that she can have her nurse call RT anytime during the night if she has any respiratory issues. Pt verbalizes understanding. Initialized on 02/16/24 22:27 - END OF NOTE Assessment/Plan (1) Dyspnea Current Visit: Yes Status: Acute Assessment & Plan: - Chest CT 02/16/24 IMPRESSION: 1. No evidence of pulmonary embolism. 2. Mild centrilobular emphysematous changes predominantly involving both upper lobes. Stable finding. 3. A probable perifissural nodule along the right horizontal fissure measured about 5 mm. 4. No pulmonary mass, collapse, or consolidative changes. Stable finding. 5. Bilateral mild pleural effusion is seen. Interval new finding. 6. Mild cardiomegaly. 7. Calcified densities were seen in the left breast. Stable finding. - Likely from COPD exacerbation +/- pleural effusions - diuresis - Duonebs/steroids, supplemental O2 - Follow up CXR in AM - Echo - Monitor O2 sats - Does not wear O2 at baseline- currently on 2lNC at 93% Code(s): R06.00 - DYSPNEA, UNSPECIFIED (2) Pleural effusion Current Visit: Yes Status: Acute Assessment & Plan: - BL moderate - Lasix 40 IV BID - repeat CXR in AM - ECHO Code(s): J90 - PLEURAL EFFUSION, NOT ELSEWHERE CLASSIFIED (3) Iron deficiency anemia Current Visit: Yes Status: Chronic Assessment & Plan: - Continue IV iron - H&H Q6 - Hg 7.1 this AM - iron panel reviewed - Will need GI f/u OP Code(s): D50.9 - IRON DEFICIENCY ANEMIA, UNSPECIFIED (4) Obesity, Class III, BMI 40-49.9 (morbid obesity) Current Visit: Yes Status: Chronic Assessment & Plan: - advised diet and exercise control Code(s): E66.01 - MORBID (SEVERE) OBESITY DUE TO EXCESS CALORIES (5) Elevated troponin Current Visit: Yes Status: Acute Assessment & Plan: - trop 0.039, 0.038, 0.036- trended down - Likely demand ischemia - denies CP - EKG reviewed - ECHO - Tele - Will need OP cardiology referral at d/c. 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 Gonzalez - Continue Vowst- PO per ID - stool sample pending - no loose stools since admission - isolation Code(s): A49.8 - OTHER BACTERIAL INFECTIONS OF UNSPECIFIED SITE (7) Colon cancer Current Visit: No Status: Chronic Qualifiers: Colon location: overlapping sites Qualified Code(s): C18.8 - Malignant neoplasm of overlapping sites of colon Assessment & Plan: - adds to complexity - Status post hemicolectomy and chemo (8) Hypokalemia Current Visit: No Status: Chronic Assessment & Plan: - K+ 3.4- replaced- recheck when supplementation completed VTE: Lovenox PPI: Pantoprazole Next of KIN: Child- Yvonne Sandoval [phone] D/C plan: 1-2 days Code status: Full Code Code(s): E87.6 - HYPOKALEMIA
[2024-02-17 12:24] LABS: Hematocrit 26.1 % (34.1-44.9); Hemoglobin 7.4 g/dL (11.2-15.7)
[2024-02-17] MEDS: Klor Con PO SCH (16:26)
[2024-02-17 16:36] LABS: Hematocrit 24.7 % (34.1-44.9); Hemoglobin 7.2 g/dL (11.2-15.7)
[2024-02-17] MEDS: ADVAIR HFA 45/21 COMMON CANISTER IH SCH (21:51)
[2024-02-17] MEDS: AMITRIPTYLINE 25 MG TABLET PO SCH (21:56)
[2024-02-18 05:32] LABS: Hematocrit 26.2 % (34.1-44.9); Hemoglobin 7.4 g/dL (11.2-15.7); Mean Cell Volume 75.5 fL (79.4-94.8); Mean Corpuscular Hemoglobin 21.3 pg (25.6-32.2); Mean Corpuscular Hgb Concent. 28.2 g/dL (32.2-35.5); Mean Platelet Volume 9.6 fL (9.4-12.3); Platelet Count 363 x10^3/uL (182-369); Red Blood Count 3.47 x10^6/uL (3.93-5.22); Red Cell Distribution Width 16.5 % (11.7-14.4); White Blood Count 18.8 x10^3/uL (3.98-10.04)
[2024-02-18 05:53] LABS: ALBUMIN 3.9 g/dL (3.5-5.0); ANION GAP 14.6 MEQ/L (5-15); BILIRUBIN,TOTAL 0.4 mg/dL (0.2-1.3); Calcium 9.3 mg/dL (8.4-10.2); Creatinine 1 0.73 mg/dL (0.52-1.04); EST GLOMERULAR FILTRATION RATE 85.2 ML/MIN; Potassium 3.9 mmol/L (3.5-5.1); Total Protein 6.9 g/dL (6.3-8.2)
[2024-02-18 07:59] LABS: Slide Review YES
--- NOTE | 2024-02-18 08:39 | XRAY ---
Indication: Bilateral pleural effusions. Comparison: March 26, 2022 PA/lateral chest limited as posterior gutters not included on lateral view. Lungs remain hyperinflated and grossly clear. Heart not enlarged again with left Port-A-Cath. Bony thorax intact again with osteopenia and mild degenerative changes. New epidural leads terminating T7. Impression: Nonacute hyperinflated limited chest again with chronic features.
--- NOTE | 2024-02-18 11:47 | PCM.NOTE ---
Date and Time: 02/18/24 1138 Subjective Assessment: 02/17/24 Ms. CONCEPCION is a 74 year old female with a past medical history significant for hypertension, hyperlipidemia, colon cancer status post chemotherapy via port and COPD. She presented to the hospital on 02/16/24 with complaints of shortness of breath. Upon arrival, she was found to have a slightly elevated troponin at 0.039. No fever/chills. No nausea, vomiting or diarrhea. No chest pain or palpitations. She had a CTA chest that was negative for PE, but did show some new mild bilateral pleural effusions. She has also had a decreasing hemoglobin over the past year from 11.9 down to 7.3 but no dark stools noted. Iron has been low and she has been receiving Op iron infusions that have been continued IP. She reports she has had C- diff for the past three months, has been taking Vanco orally, last dose three days ago. She was then placed on Vowst by infectious disease- Dr. Gonzalez. She reports she has not had any loose stools since starting this medication. She is in isolation for c-diff hx. Echo to be done today. Continue Lasix 40 IV BID. She remains on 2lNC @ 93%. Will recheck CXR in AM. She will need an appointment with cardiology OP at d/c. She reports she has never seen one in the past and has no heart hx. She denies CP, abd. pain, N/V/D. 02/18/24 Pt resting in bed. She reports she has been doing well until she gets up to walk to the bathroom then she feels she needs her O2 back on and is SOB. Repeat CXR negative and does not show any pleural effusions. She states she still does not feel well and will not go home today. She also stated if we discharge her she will come right back to the ER to be admitted. WBC is elevated at 18.8 may be 2:2 steroids. Lung sounds are clear. Will check UA since she still does not feel well. Will also have RT eval for home O2. She may need an overnight pulse ox. Hgb stable at 7.4. Echo is still pending reading by cardiology. She denies CP, Abd. pain. N/V/D. Will have PT eval as she reports weakness and SOB with exertion. She would benefit from OP PT or HHC. At this time. she is refusing both. Maybe if PT evals they could convince her otherwise. - Review of Systems Constitutional: Weakness, No Fever, No Chills Eyes: No Symptoms Ears, Nose, & Throat: No Symptoms Respiratory: Short Of Breath, No Cough Cardiac: No Chest Pain, No Edema, No Syncope Abdominal/Gastrointestinal: No Abdominal Pain, No Nausea, No Vomiting, No Diarrhea Genitourinary Symptoms: No Dysuria Musculoskeletal: No Back Pain, No Neck Pain Skin: No Rash Neurological: No Dizziness, No Focal Weakness, No Sensory Changes Psychological: Mood Changes Endocrine: No Symptoms Hematologic/Lymphatic: No Symptoms Immunological/Allergic: No Symptoms Objective Exam General Appearance: no apparent distress, alert, obese Neurologic Exam: alert, oriented x 3, cooperative, normal mood/affect, nml cerebellar function, sensation nml, No motor deficits Skin Exam: normal color, warm, dry Wound Assessment: Skin/Wound Assessment Wound/Incision Assessment Start: 02/16/24 22:02 Text: Status: Active Freq: Q6H Protocol: Document 02/18/24 02:00 FABIÁN (Rec: 02/18/24 02:12 FABIÁN [id number]) Wound/Incision Assessment Medial Abdomen Wound Assessment Shift Assessment Wound Type RED AREA, PT STATES THAT SHE HAS ECZEMA Wound Stage Non Pressure Wound Drainage Amount Minimal Drainage Description BLOODY Drainage Odor None/Absent General Appearance Reddened Wound Bed Greatest Portion Red (Granulation) Wound Bed Lesser Portion Red (Granulation) Surrounding Tissue Gallaway Comment OPEN TO AIR Eye Exam: PERRL, EOMI, eyes nml inspection Ears, Nose, Throat Exam: normal ENT inspection, pharynx normal, moist mucous membranes Neck Exam: normal inspection, non-tender, supple, full range of motion Respiratory Exam: normal breath sounds, lungs clear, No respiratory distress Cardiovascular Exam: regular rate/rhythm, normal heart sounds Gastrointestinal/Abdomen Exam: soft, No tenderness, No mass Extremity Exam: normal inspection, normal range of motion Back Exam: normal inspection, normal range of motion, No CVA tenderness, No vertebral tenderness Pelvic Exam: deferred Rectal Exam: deferred Objective Data Vital Signs: Vital Signs - 24 hr Temp Pulse Resp BP Pulse Ox 02/18/24 10:59 97.0 F 105 H 21 127/60 94 L 02/18/24 07:50 97.6 F 89 19 114/66 94 L 02/18/24 07:00 95 02/18/24 06:50 85 20 95 02/18/24 04:00 97.1 F 87 16 103/55 94 L 02/17/24 23:27 97.6 F 91 H 18 105/61 93 L 02/17/24 19:24 96.3 F 98 H 18 118/63 93 L 02/17/24 18:45 97 H 18 93 L 02/17/24 16:00 96.1 F 97 H 13 131/58 92 L Pain Assessment - Last Documented Pain Intensity 0 Pain Scale Used 0-10 Pain Scale Intake and Output: Intake & Output 02/15/24 02/16/24 02/17/24 02/18/24 11:59 11:59 11:59 11:59 Intake Total 1480 1060 Output Total 2625 Balance 1480 -1565 Weight 116.1 kg 115.1 kg Lab Results: Lab Results-Last 24 Hours 02/17/24 02/17/24 02/17/24 Range/Units 12:10 12:10 16:25 WBC (3.98-10.04) x10^3/uL RBC (3.93-5.22) x10^6/uL Hgb 7.4 L 7.2 L (11.2-15.7) g/dL Hct 26.1 L 24.7 L (34.1-44.9) % MCV (79.4-94.8) fL MCH (25.6-32.2) pg MCHC (32.2-35.5) g/dL RDW (11.7-14.4) % Plt Count (182-369) x10^3/uL MPV (9.4-12.3) fL Sodium (135-145) mmol/L Potassium 3.2 L (3.5-5.1) mmol/L Chloride (98-107) mmol/L Carbon Dioxide (22-30) mmol/L Anion Gap (5-15) MEQ/L BUN (7-17) mg/dL Creatinine (0.52-1.04) mg/dL Estimated GFR ML/MIN Glucose (74-106) mg/dL Calcium (8.4-10.2) mg/dL Magnesium (1.6-2.3) mg/dL Total Bilirubin (0.2-1.3) mg/dL AST (14-36) U/L ALT (0-35) U/L Alkaline Phosphatase (38-126) U/L Serum Total Protein (6.3-8.2) g/dL Albumin (3.5-5.0) g/dL Slides for Path Review 02/17/24 02/17/24 02/18/24 Range/Units 16:25 20:10 05:00 WBC 18.8 H (3.98-10.04) x10^3/uL RBC 3.47 L (3.93-5.22) x10^6/uL Hgb 7.4 L (11.2-15.7) g/dL Hct 26.2 L (34.1-44.9) % MCV 75.5 L (79.4-94.8) fL MCH 21.3 L (25.6-32.2) pg MCHC 28.2 L (32.2-35.5) g/dL RDW 16.5 H (11.7-14.4) % Plt Count 363 (182-369) x10^3/uL MPV 9.6 (9.4-12.3) fL Sodium (135-145) mmol/L Potassium 3.3 L 3.4 L (3.5-5.1) mmol/L Chloride (98-107) mmol/L Carbon Dioxide (22-30) mmol/L Anion Gap (5-15) MEQ/L BUN (7-17) mg/dL Creatinine (0.52-1.04) mg/dL Estimated GFR ML/MIN Glucose (74-106) mg/dL Calcium (8.4-10.2) mg/dL Magnesium (1.6-2.3) mg/dL Total Bilirubin (0.2-1.3) mg/dL AST (14-36) U/L ALT (0-35) U/L Alkaline Phosphatase (38-126) U/L Serum Total Protein (6.3-8.2) g/dL Albumin (3.5-5.0) g/dL Slides for Path Review YES 02/18/24 02/18/24 Range/Units 05:00 05:00 WBC (3.98-10.04) x10^3/uL RBC (3.93-5.22) x10^6/uL Hgb (11.2-15.7) g/dL Hct (34.1-44.9) % MCV (79.4-94.8) fL MCH (25.6-32.2) pg MCHC (32.2-35.5) g/dL RDW (11.7-14.4) % Plt Count (182-369) x10^3/uL MPV (9.4-12.3) fL Sodium 139 (135-145) mmol/L Potassium 3.9 (3.5-5.1) mmol/L Chloride 103 (98-107) mmol/L Carbon Dioxide 25 (22-30) mmol/L Anion Gap 14.6 (5-15) MEQ/L BUN 24 H (7-17) mg/dL Creatinine 0.73 (0.52-1.04) mg/dL Estimated GFR 85.2 ML/MIN Glucose 144 H (74-106) mg/dL Calcium 9.3 (8.4-10.2) mg/dL Magnesium 2.2 (1.6-2.3) mg/dL Total Bilirubin 0.40 (0.2-1.3) mg/dL AST 45 H (14-36) U/L ALT 32 (0-35) U/L Alkaline Phosphatase 76 (38-126) U/L Serum Total Protein 6.9 (6.3-8.2) g/dL Albumin 3.9 (3.5-5.0) g/dL Slides for Path Review Radiology Exams: Radiology Procedures Category Date Time Status CHEST 2 VIEWS (PA AND LAT) Routine Exams 02/18/24 07:00 Completed CHEST WITH CONTRAST [CT] Stat Exams 02/16/24 13:13 Completed ECHO W/2D AND DOPPLER [US] Routine Exams 02/17/24 10:01 Taken Assessment/Plan (1) Dyspnea Current Visit: Yes Status: Acute Code(s): R06.00 - DYSPNEA, UNSPECIFIED (2) Pleural effusion Current Visit: Yes Status: Acute Code(s): J90 - PLEURAL EFFUSION, NOT ELSEWHERE CLASSIFIED (3) Iron deficiency anemia Current Visit: Yes Status: Chronic Code(s): D50.9 - IRON DEFICIENCY ANEMIA, UNSPECIFIED (4) Obesity, Class III, BMI 40-49.9 (morbid obesity) Current Visit: Yes Status: Chronic Code(s): E66.01 - MORBID (SEVERE) OBESITY DUE TO EXCESS CALORIES (5) Elevated troponin Current Visit: Yes Status: Acute Code(s): R79.89 - OTHER SPECIFIED ABNORMAL FINDINGS OF BLOOD CHEMISTRY (6) 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 No evidence of pulmonary embolism. 2. Mild centrilobular emphysematous changes predominantly involving both upper lobes. Stable finding. 3. A probable perifissural nodule along the right horizontal fissure measured about 5 mm. 4. No pulmonary mass, collapse, or consolidative changes. Stable finding. 5. Bilateral mild pleural effusion is seen. Interval new finding. 6. Mild cardiomegaly. 7. Calcified densities were seen in the left breast. Stable finding. - Likely from COPD exacerbation +/- pleural effusions - diuresis - Duonebs/steroids, supplemental O2 - Follow up CXR in AM - Echo - Monitor O2 sats - Does not wear O2 at baseline- currently on 2lNC at 93% 02/17 - O2 needed after exertion - RT eval for home O2 - May need overnight Pulse ox Code(s): R06.00 - DYSPNEA, UNSPECIFIED (2) Pleural effusion Current Visit: Yes Status: Acute Assessment & Plan: - BL moderate - Lasix 40 IV BID - repeat CXR in AM - ECHO 02/17 - CXR Impression: Nonacute hyperinflated limited chest again with chronic features. - Continue IV lasix for now. Code(s): J90 - PLEURAL EFFUSION, NOT ELSEWHERE CLASSIFIED (3) Iron deficiency anemia Current Visit: Yes Status: Chronic Assessment & Plan: - Continue IV iron - H&H Q6 - Hg 7.1 this AM - iron panel reviewed - Will need GI f/u OP 02/17 - Hgb 7.4- stable Code(s): D50.9 - IRON DEFICIENCY ANEMIA, UNSPECIFIED (4) Obesity, Class III, BMI 40-49.9 (morbid obesity) Current Visit: Yes Status: Chronic Assessment & Plan: - advised diet and exercise control Code(s): E66.01 - MORBID (SEVERE) OBESITY DUE TO EXCESS CALORIES (5) Elevated troponin Current Visit: Yes Status: Acute Assessment & Plan: - trop 0.039, 0.038, 0.036- trended down - Likely demand ischemia - denies CP - EKG reviewed - ECHO - Tele - Will need OP cardiology referral at d/c. 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 Gonzalez - Continue Vowst- PO per ID - stool sample pending - no loose stools since admission - isolation - will need GI referral at d/c Code(s): A49.8 - OTHER BACTERIAL INFECTIONS OF UNSPECIFIED SITE (7) Colon cancer Current Visit: No Status: Chronic Qualifiers: Colon location: overlapping sites Qualified Code(s): C18.8 - Malignant neoplasm of overlapping sites of colon Assessment & Plan: - adds to complexity - Status post hemicolectomy and chemo (8) Hypokalemia Current Visit: No Status: Chronic Assessment & Plan: - K+ 3.4- replaced- recheck when supplementation completed 02/17 - K+ 3.9- stable Code(s): E87.6 - HYPOKALEMIA
[2024-02-18 14:24] LABS: Appearance Clear (Clear); Bacteria None Seen /HPF (None Seen); Bilirubin Negative (Negative); Blood Negative (Negative); Epithelial Cells None Seen /HPF (None Seen); Glucose, Urine Negative (Negative); Ketones Negative (Negative); Leukocyte Esterase Negative (Negative); Nitrite Negative (Negative); Protein,Urine Dip Negative (Negative); RBC 0-2 /HPF (0-5); Urobilinogen 0.2 mg/dL (0.2); WBC 0-2 /HPF (0-5)
[2024-02-18 14:30] LABS: ADD URINE CULTURE? NO (NO)
[2024-02-18] MEDS ORDERED: Sodium Chloride 0.9% 100 ML ONE (22:25)
[2024-02-18] MEDS: Venofer 100 MG/5 ML*** 200 MG in Sodium Chloride 0.9% 100 ML IV SCH (22:44)
[2024-02-19 05:06] LABS: Hematocrit 27.4 % (34.1-44.9); Hemoglobin 7.4 g/dL (11.2-15.7); Mean Cell Volume 79.4 fL (79.4-94.8); Mean Corpuscular Hemoglobin 21.4 pg (25.6-32.2); Mean Platelet Volume 9.7 fL (9.4-12.3); Platelet Count 325 x10^3/uL (182-369); Red Blood Count 3.45 x10^6/uL (3.93-5.22); Red Cell Distribution Width 16.5 % (11.7-14.4); White Blood Count 15.5 x10^3/uL (3.98-10.04)
[2024-02-19 05:35] LABS: ALBUMIN 3.9 g/dL (3.5-5.0); ANION GAP 15.3 MEQ/L (5-15); BILIRUBIN,TOTAL 0.4 mg/dL (0.2-1.3); Calcium 9.2 mg/dL (8.4-10.2); Creatinine 1 0.74 mg/dL (0.52-1.04); EST GLOMERULAR FILTRATION RATE 83.8 ML/MIN; Potassium 3.3 mmol/L (3.5-5.1); Total Protein 6.8 g/dL (6.3-8.2)
[2024-02-19 07:27] LABS: Slide Review YES
[2024-02-19] MEDS: Klor Con PO SCH ×2 (07:48→16:52)
[2024-02-19] MEDS: TYLENOL 325 MG PO PRN (09:57)
--- NOTE | 2024-02-19 11:08 | PCM.CONS ---
History of Present Illness - Date of Consult Date of Encounter: 02/19/24 Consult[employer] Sales [employer] Trainee: NELSON POON MD Requesting Provider: Attending Provider: MAX MCLEAN MD Primary Care Provider: PCP: WANDER MONTOYA - Consult Narrative Reason for Consult: Bilateral pleural effusions, EF 50% on ECHO HPI: Patient is a 74F who denies fevers, chills, nausea, vomiting, diarrhea, syncope, presyncope, dysphagia,odynophagia, orthopnea, paroxysmal nocturnal dyspnea, shortness of breath, chest pain, refluxsymptoms, belly pain, dysuria, hematuria, melena, hematochezia, seizures, paralysis, or other neurological changes. All other systems have been reviewed and are negative. cc:: The requesting physician will be sent a copy of the consult. - Past Medical History Past Medical History: Yes Neurological History: No Pertinent History ENT History: No Pertinent History Cardiac History: High Cholesterol, Hypertension Respiratory History: COPD Endocrine Medical History: No Pertinent History Musculoskelatal History: Rheumatoid Arthritis GI Medical History: Colorectal Cancer, Diverticulosis, GERD, Polyps History: No Pertinent History Pyscho-Social History: Anxiety Reproductive Disorders: Breast Cancer Comment: C-Diff (Dr. Epstein), iron deficiency anemia (Dr. Rivera), eczema, bowel obstruction, chronic sciatic nerve pain - Past Surgical History Past Surgical History: Yes Neuro Surgical History: No Pertinent History Cardiac History: No Pertinent History Respiratory Surgery: No Pertinent History GI Surgical History: Colon Resection, Hernia Repair, Other Genitourinary Surgical Hx: No Pertinent History Musculskeletal Surgical Hx: Joint Replacement, Orthopedic Surgery Female Surgical History: Tubal Ligation, Mastectomy Other Surgical History: Bjorn knee replacement, bariatric surgery, breast cancer with partial mastectomy left, lumpectomy right breast, port placed x 2, insertion of a sciatic nerve stimulator Significant Family History: heart disease, cancer - Social History Smoking Status: Former smoker How long have you smoked: 40 yrs Exposure to second hand smoke: Yes (occassionally) Alcohol: Occasionally Drug Use: none - Social Determinants of Health Will the patient participate in the screening: Yes Do you worry about a steady place to live?: No Do you have any problems with any of the following?: No known problems In the past 12 months,have you had to go without utilities?: No Have you or anyone in your house had to go without enough: No Transportation Issues: No Has anyone in your support network made you feel unsafe?: No Does the patient want assistance with any of the above?: No Medications & Allergies Home Medications: Home Medication List Metoprolol Succinate 100 mg [Toprol Xl 100 MG] 100 mg PO DAILY 11/23/20 [History Confirmed 02/16/24] Metoclopramide HCl 10 mg [Reglan 10 MG] 10 mg PO TIDWMEALS #30 tablet 03/19/21 [Rx Confirmed 02/16/24] PANTOPRAZOLE 40 mg Tablet [Protonix 40MG Tablet] 40 mg PO DAILY #30 tab 03/24/21 [Rx Confirmed 02/16/24] Amitriptyline HCl 25 mg [Amitriptyline 25 mg Tablet] 75 mg PO HS 03/09/22 [History Confirmed 02/16/24] Furosemide 40 mg [Lasix 40 MG] 40 mg PO DAILY 03/09/22 [History Confirmed 02/16/24] Gabapentin 300 mg PO DAILY 03/09/22 [History Confirmed 02/16/24] Dupilumab [Dupixent Pen] 300 mg SQ CLARIFY 12/05/22 [History Confirmed 02/16/24] Fluticasone Propion/Salmeterol [Advair 100-50 Diskus] 1 blist IH DAILY 12/05/22 [History Confirmed 02/16/24] Cyanocobalamin (Vitamin B-12) [Vitamin B-12] 500 mcg PO DAILY 09/22/23 [History Confirmed 02/16/24] Sucralfate 1 gm [Carafate 1 GM] 1 g PO TID 09/22/23 [History Confirmed 02/16/24] Folic Acid 1 mg [Folate 1 mg] 1 mg PO DAILY 01/23/24 [History Confirmed 02/16/24] Lactobacillus Acidophilus [Probiotic] 1 cap PO DAILY 01/23/24 [History Confirmed 02/16/24] Aspirin/Acetaminophen/Caffeine [Excedrin Migraine Caplet] 2 tab PO BID 02/16/24 [History Confirmed 02/16/24] Cholecalciferol (Vitamin D3) [Vitamin D3] 2,000 iu PO DAILY 02/16/24 [History Confirmed 02/16/24] Famotidine 20 mg PO BID 02/16/24 [History Confirmed 02/16/24] Fecal Microbio Spore,Live-Brpk [Vowst] 4 tab PO DAILY 02/16/24 [History Confirme d 02/16/24] Gabapentin 600 mg PO HS 02/16/24 [History Confirmed 02/16/24] Potassium Chloride 20 meq PO BID 02/16/24 [History Confirmed 02/16/24] Allergies/Adverse Reactions: Allergies Allergy/AdvReac Type Severity Reaction Status Date / Time bee venom protein (honey bee) Allergy Severe Anaphylactic Verified 02/16/24 20:59 Reaction venom-wasp Allergy Anaphylactic Verified 02/16/24 20:59 Reaction acetaminophen AdvReac Mild Nausea Verified 02/16/24 20:58 [From Tylenol-Codeine] codeine AdvReac Mild Nausea Verified 02/16/24 20:58 [From Tylenol-Codeine] bandaids AdvReac Mild redness/swe Uncoded 02/16/24 12:58 lling Exam - Vitals Vital Signs: Vital Signs - 24 hr Temp Pulse Resp BP Pulse Ox 02/19/24 07:34 97.8 F 88 22 122/62 92 L 02/19/24 07:04 88 16 91 L 02/19/24 04:00 97.3 F 92 H 24 106/51 94 L 02/18/24 23:50 97.8 F 87 18 116/58 93 L 02/18/24 20:00 97.5 F 86 20 116/62 95 02/18/24 19:00 95 H 18 95 02/18/24 16:00 97.8 F 92 H 27 H 114/72 92 L SpO2: 92 Results Vital Signs: Vital Signs - 24 hr Temp Pulse Resp BP Pulse Ox 02/19/24 07:34 97.8 F 88 22 122/62 92 L 02/19/24 07:04 88 16 91 L 02/19/24 04:00 97.3 F 92 H 24 106/51 94 L 02/18/24 23:50 97.8 F 87 18 116/58 93 L 02/18/24 20:00 97.5 F 86 20 116/62 95 02/18/24 19:00 95 H 18 95 02/18/24 16:00 97.8 F 92 H 27 H 114/72 92 L Pain Assessment - Last Documented Pain Intensity 10 Pain Scale Used 0-10 Pain Scale Intake and Output: Intake & Output 02/16/24 02/17/24 02/18/24 02/19/24 11:59 11:59 11:59 11:59 Intake Total 1480 1060 1860 Output Total 2625 700 Balance 1480 -1565 1160 Weight 116.1 kg 115.1 kg LAB: I have reviewed the Labs in [employer]. Radiology Exams: Radiology Procedures Category Date Time Status CHEST 2 VIEWS (PA AND LAT) Routine Exams 02/18/24 07:00 Completed ECHO W/2D AND DOPPLER [US] Routine Exams 02/17/24 10:01 Taken TRANSTHORACIC ECHOCARDIOGRAM 02/17/2024: 1. Technically difficult study. 2. Mildly dilated left atrium. Other chamber sizes are normal. 3. Borderline low left ventricular systolic function with mild septal hypokinesis. Estimated EF 50% 4. Normal right ventricular systolic function. 5. Moderate aortic sclerosis without stenosis. Unable to exclude a bicuspid aortic valve. 6. Doppler: Mild mitral and pulmonic regurgitation. 7. Unable to estimate PA systolic pressure. 8. Mildly elevated right atrial pressure. 9. No pericardial effusion. CTA of Pulmonary arteries 02/16/2024: 1. No evidence of pulmonary embolism. 2. Mild centrilobular emphysematous changes predominantly involving both upper lobes. Stable finding. 3. A probable perifissural nodule along the right horizontal fissure measured about 5 mm. 4. No pulmonary mass, collapse, or consolidative changes. Stable finding. 5. Bilateral mild pleural effusion is seen. Interval new finding. 6. Mild cardiomegaly. 7. Calcified densities were seen in the left breast. Stable finding. CXR (PA&LAT) 02/18/2024: chest limited as posterior gutters not included on lateral view. Lungs remain hyperinflated and grossly clear. Heart not enlarged again with left Port-A-Cath. Bony thorax intact again with osteopenia and mild degenerative changes. New epidural leads terminating T7. Impression: Nonacute hyperinflated limited chest again with chronic features. Tracing 1 Attestation: I have reviewed this EKG and interpreted as documented below. 02/17/2024: Sinus tachycardia with occasional PVCs at 101 bpm. Low voltage in precordial leads. Telemetry 02/18/2024:Sius rhythm at 88 bpm. : Sinus rhythm with occasional PVCs at 100-106 bpm. Multi-Disciplinary Progress Notes: Multi-Disciplinary Progress Notes 02/19/24 07:09 Respiratory Note by Elsa Reyes Patient's O2 sat 88% on RA at rest. RN notified. Initialized on 02/19/24 07:09 - END OF NOTE 02/18/24 13:12 Respiratory Note by Chante Menendez PT'S O2 SAT ON ROOM AIR WHILE AT REST WAS 93%. PT'S O2 SAT ON ROOM AIR WHILE WALKING WAS 93%. WILL DO OVERNIGHT PULSE OXIMETRY STUDY TONIGHT. Initialized on 02/18/24 13:12 - END OF NOTE 02/18/24 12:49 Radiology Note by NELSON POON TRANSTHORACIC ECHOCARDIOGRAM 02/17/2024: 1. Technically difficult study. 2. Mildly dilated left atrium. Other chamber sizes are normal. 3. Borderline low left ventricular systolic function with mild septal hypokinesis. Estimated EF 50% 4. Normal right ventricular systolic function. 5. Moderate aortic sclerosis without stenosis. Unable to exclude a bicuspid aortic valve. 6. Doppler: Mild mitral and pulmonic regurgitation. 7. Unable to estimate PA systolic pressure. 8. Mildly elevated right atrial pressure. 9. No pericardial effusion. Nelson Poon MD [facility] Initialized on 02/18/24 12:49 - END OF NOTE 02/18/24 12:25 Case Management Note by Santa Montanez PATIENT VERY ABBRASIVE WHEN TRYING TO DISCUSS DC NEEDS. I ASKED PATIENT IF SHE STILL FELT LIKE SHE WOULD BE ABLE TO CARE FOR HERSLEF AT HOME AT TIME OF DC SHE RESPONDED " IM NOT GOING HOME" IN A LOUD VOICE. " SHE THEN STATED " I TOLD THEM I'M NOT GOING HOME UNTIL I DONT HAVE ANYMORE FLUID ON MY LUNGS". PATIENT REASSURED THAT THIS CONVERSATION IS JUST TO PLAN FOR WHEN SHE DOES HOME. SHE THEN CALMED DOWN AND STATED SHE WISHES TO RETURN HOME AT DC BUT IS UNSURE AT T HIS TIME IF SHE WOULD LIKE [facility] OR NOT. PATIENT CURRENTLY STILL ON OXYGBEN- MAY NEED SET UP IF STILL NEEDED AT DC Initialized on 02/18/24 12:25 - END OF NOTE Assessment & Plan (1) Acute on chronic heart failure with preserved ejection fraction (HFpEF, >= 50%) Current Visit: Yes Status: Acute Assessment & Plan: New onset CHF. Diuresing well having lost 4 kg on IV furosemide but significant JVD and VALERIO persists. Continue furosemide 40 mg IVP. Will add Jardience 10 mg daily. After adequate diuresis in the next 1-2 days, can change IV furosemide to torsemide 40 mg daily for its superior bioavailability. She will need to follow-up with a local oleo hasher and renderer who can also perform work-up for CAD. Code(s): I50.33 - ACUTE ON CHRONIC DIASTOLIC (CONGESTIVE) HEART FAILURE (2) Elevated troponin I level Current Visit: No Status: Acute Assessment & Plan: Mildly elevated with a flat pattern - presentation not consistent with acute coronary syndrome. Most likely secondary to her CHF. Outpatient evaluation for CAD as above. Code(s): R77.8 - OTHER SPECIFIED ABNORMALITIES OF PLASMA PROTEINS (3) Hypertension Current Visit: Yes Status: Acute Assessment & Plan: Unable to fully assess for hypertensive heart disease on ECHO. Left ventricular hypertrophy was not present but there was an incomplete evaluation for diastolic function. Code(s): I10 - ESSENTIAL (PRIMARY) HYPERTENSION - Encounter Encounter: "The entirety of this encounter was performed via Telemedicine using audio and visual "
--- NOTE | 2024-02-19 12:42 | PCM.NOTE ---
Date and Time: 02/19/24 1236 Subjective Assessment: 02/17/24 Ms. CONCEPCION is a 74 year old female with a past medical history significant for hypertension, hyperlipidemia, colon cancer status post chemotherapy via port and COPD. She presented to the hospital on 02/16/24 with complaints of shortness of breath. Upon arrival, she was found to have a slightly elevated troponin at 0.039. No fever/chills. No nausea, vomiting or diarrhea. No chest pain or palpitations. She had a CTA chest that was negative for PE, but did show some new mild bilateral pleural effusions. She has also had a decreasing hemoglobin over the past year from 11.9 down to 7.3 but no dark stools noted. Iron has been low and she has been receiving Op iron infusions that have been continued IP. She reports she has had C- diff for the past three months, has been taking Vanco orally, last dose three days ago. She was then placed on Vowst by infectious disease- Dr. Gonzalez. She reports she has not had any loose stools since starting this medication. She is in isolation for c-diff hx. Echo to be done today. Continue Lasix 40 IV BID. She remains on 2lNC @ 93%. Will recheck CXR in AM. She will need an appointment with cardiology OP at d/c. She reports she has never seen one in the past and has no heart hx. She denies CP, abd. pain, N/V/D. 02/18/24 Pt resting in bed. She reports she has been doing well until she gets up to walk to the bathroom then she feels she needs her O2 back on and is SOB. Repeat CXR negative and does not show any pleural effusions. She states she still does not feel well and will not go home today. She also stated if we discharge her she will come right back to the ER to be admitted. WBC is elevated at 18.8 may be 2:2 steroids. Lung sounds are clear. Will check UA since she still does not feel well. Will also have RT eval for home O2. She may need an overnight pulse ox. Hgb stable at 7.4. Echo is still pending reading by cardiology. She denies CP, Abd. pain. N/V/D. Will have PT eval as she reports weakness and SOB with exertion. She would benefit from OP PT or HHC. At this time. she is refusing both. Maybe if PT evals they could convince her otherwise. 02/19/24 Pt resting in bed. She continues to have SOB with exertion. Cardiology consulted today and explained she needs to stay another day or 2 for CHF exacerbation with continued Lasix IV and added Jardiance. Echo results show EF 50%. Overnight pulse showed need for home O2 at night. She also needs O2 with walking. Case management to set up home O2. She states she does not feel well. Explained this is r/t CHF exacerbation. She denies CP, abd pain, N/V/D. - Review of Systems Constitutional: No Fever, No Chills Eyes: No Symptoms Ears, Nose, & Throat: No Symptoms Respiratory: Short Of Breath, No Cough Cardiac: No Chest Pain, No Edema, No Syncope Abdominal/Gastrointestinal: No Abdominal Pain, No Nausea, No Vomiting, No Diarrhea Genitourinary Symptoms: No Dysuria Musculoskeletal: No Back Pain, No Neck Pain Skin: No Rash Neurological: No Dizziness, No Focal Weakness, No Sensory Changes Psychological: No Symptoms Endocrine: No Symptoms Hematologic/Lymphatic: No Symptoms Immunological/Allergic: No Symptoms Objective Exam General Appearance: obese Neurologic Exam: alert, oriented x 3, cooperative, normal mood/affect, nml cerebellar function, sensation nml, No motor deficits Skin Exam: normal color, warm, dry Wound Assessment: Skin/Wound Assessment Wound/Incision Assessment Start: 02/16/24 22:02 Text: Status: Active Freq: Q6H Protocol: Document 02/19/24 08:00 FABIÁN (Rec: 02/19/24 08:19 FABIÁN [id number]) Wound/Incision Assessment Medial Abdomen Wound Assessment Shift Assessment Wound Type BRIGHT RED AREA, PT STATES THAT SHE HAS ECZEMA Wound Stage Non Pressure Wound Drainage Amount Minimal Drainage Description BLOODY Drainage Odor None/Absent General Appearance Reddened Wound Bed Greatest Portion Red (Granulation) Wound Bed Lesser Portion Red (Granulation) Surrounding Tissue [place] Comment OPEN TO AIR Eye Exam: PERRL, EOMI, eyes nml inspection Ears, Nose, Throat Exam: normal ENT inspection, pharynx normal, moist mucous membranes Neck Exam: JVD Respiratory Exam: normal breath sounds, lungs clear, No respiratory distress Cardiovascular Exam: regular rate/rhythm, normal heart sounds Gastrointestinal/Abdomen Exam: soft, No tenderness, No mass Extremity Exam: normal inspection, normal range of motion Back Exam: normal inspection, normal range of motion, No CVA tenderness, No vertebral tenderness Pelvic Exam: deferred Rectal Exam: deferred Objective Data Vital Signs: Vital Signs - 24 hr Temp Pulse Resp BP Pulse Ox 02/19/24 12:23 92 L 02/19/24 07:34 97.8 F 88 22 122/62 92 L 02/19/24 07:04 88 16 91 L 02/19/24 04:00 97.3 F 92 H 24 106/51 94 L 02/18/24 23:50 97.8 F 87 18 116/58 93 L 02/18/24 20:00 97.5 F 86 20 116/62 95 02/18/24 19:00 95 H 18 95 02/18/24 16:00 97.8 F 92 H 27 H 114/72 92 L Pain Assessment - Last Documented Pain Intensity 6 Pain Scale Used 0-10 Pain Scale Intake and Output: Intake & Output 02/17/24 02/18/24 02/19/24 02/20/24 11:59 11:59 11:59 11:59 Intake Total 1480 1060 1860 Output Total 2625 1100 Balance 1480 -1565 760 Weight 116.1 kg 115.1 kg 112.718 kg Lab Results: Lab Results-Last 24 Hours 02/18/24 02/19/24 02/19/24 Range/Units 14:16 04:46 04:46 WBC 15.5 H (3.98-10.04) x10^3/uL RBC 3.45 L (3.93-5.22) x10^6/uL Hgb 7.4 L (11.2-15.7) g/dL Hct 27.4 L (34.1-44.9) % MCV 79.4 (79.4-94.8) fL MCH 21.4 L (25.6-32.2) pg MCHC 27.0 L (32.2-35.5) g/dL RDW 16.5 H (11.7-14.4) % Plt Count 325 (182-369) x10^3/uL MPV 9.7 (9.4-12.3) fL Sodium 135 (135-145) mmol/L Potassium 3.3 L (3.5-5.1) mmol/L Chloride 99 (98-107) mmol/L Carbon Dioxide 24 (22-30) mmol/L Anion Gap 15.3 H (5-15) MEQ/L BUN 31 H (7-17) mg/dL Creatinine 0.74 (0.52-1.04) mg/dL Estimated GFR 83.8 ML/MIN Glucose 141 H (74-106) mg/dL Calcium 9.2 (8.4-10.2) mg/dL Total Bilirubin 0.40 (0.2-1.3) mg/dL AST 37 H (14-36) U/L ALT 34 (0-35) U/L Alkaline Phosphatase 77 (38-126) U/L Serum Total Protein 6.8 (6.3-8.2) g/dL Albumin 3.9 (3.5-5.0) g/dL Urine Color Yellow (Yellow) Urine Appearance Clear (Clear) Urine pH 6.0 (4.6-8.0) Ur Specific [place] 1.010 (1.005-1.030) Urine Protein Negative (Negative) Urine Glucose (UA) Negative (Negative) mg/dL Urine Ketones Negative (Negative) Urine Blood Negative (Negative) Urine Nitrite Negative (Negative) Urine Bilirubin Negative (Negative) Urine Urobilinogen 0.2 (0.2) mg/dL Ur Leukocyte Esterase Negative (Negative) U Hyaline Cast (Auto) 3-5 A (0-2) /LPF Urine Microscopic RBC 0-2 (0-5) /HPF Urine Microscopic WBC 0-2 (0-5) /HPF Ur Epithelial Cells None Seen (None Seen) /HPF Urine Bacteria None Seen (None Seen) /HPF Urine Culture Reflexed NO (NO) Slides for Path Review YES Radiology Exams: Radiology Procedures Category Date Time Status CHEST 2 VIEWS (PA AND LAT) Routine Exams 02/18/24 07:00 Completed Multi-Disciplinary Progress Notes: Multi-Disciplinary Progress Notes 02/19/24 12:02 Case Management Note by Santa Montanez PATIENT REPORTS SHE HAS PULSE OX AT HOME Initialized on 02/19/24 12:02 - END OF NOTE 02/19/24 11:56 Case Management Note by Santa Montanez Addendum entered by Santa Montanez 02/19/24 12:04: RAFAL REPORTS PATIENT QUALIFICATION TODAY IS GOOD THRU 02/20. IF PATIENT DOES NOT DC HOME ON 02/20 SHE WILL NEED REQUALIFIED FOR OXYGEN Original Note: ORDER FOR 24 HR OXYGEN SUBMITTED TO [facility] [place]( PATIENT HAS NO PREFERENCE AND [facility] PORTABLE TANKS IN HOUSE) ORER FOR 2L/NC 25/02 DELIVERY INSTRUCTIONS GIVEN TO NURSE AND PLACED IN DC INSTRUCTIONS. PATIENT TO BE SENT HOME WITH POTABLE TANK FROM [facility] AT TIME OF DC Initialized on 02/19/24 11:56 - END OF NOTE 02/19/24 11:23 Case Management Note by Santa Montanez PATIENT NOTED TO BE 87% ON RA AT REST- PLACED ON 2L/NC SATS [place] TO 96% Initialized on 02/19/24 11:23 - END OF NOTE 02/19/24 07:09 Respiratory Note by Elsa Reyes Patient's O2 sat 88% on RA at rest. RN notified. Initialized on 02/19/24 07:09 - END OF NOTE 02/18/24 13:12 Respiratory Note by Chante Menendez PT'S O2 SAT ON ROOM AIR WHILE AT REST WAS 93%. PT'S O2 SAT ON ROOM AIR WHILE WALKING WAS 93%. WILL DO OVERNIGHT PULSE OXIMETRY STUDY TONIGHT. Initialized on 02/18/24 13:12 - END OF NOTE 02/18/24 12:49 Radiology Note by NELSON POON TRANSTHORACIC ECHOCARDIOGRAM 02/17/2024: 1. Technically difficult study. 2. Mildly dilated left atrium. Other chamber sizes are normal. 3. Borderline low left ventricular systolic function with mild septal hypokinesis. Estimated EF 50% 4. Normal right ventricular systolic function. 5. Moderate aortic sclerosis without stenosis. Unable to exclude a bicuspid aortic valve. 6. Doppler: Mild mitral and pulmonic regurgitation. 7. Unable to estimate PA systolic pressure. 8. Mildly elevated right atrial pressure. 9. No pericardial effusion. Nelson Poon MD [facility] Initialized on 02/18/24 12:49 - END OF NOTE Assessment/Plan (1) Dyspnea Current Visit: Yes Status: Acute Code(s): R06.00 - DYSPNEA, UNSPECIFIED (2) Pleural effusion Current Visit: Yes Status: Acute Code(s): J90 - PLEURAL EFFUSION, NOT ELSEWHERE CLASSIFIED (3) Iron deficiency anemia Current Visit: Yes Status: Chronic Code(s): D50.9 - IRON DEFICIENCY ANEMIA, UNSPECIFIED (4) Obesity, Class III, BMI 40-49.9 (morbid obesity) Current Visit: Yes Status: Chronic Code(s): E66.01 - MORBID (SEVERE) OBESITY DUE TO EXCESS CALORIES (5) Elevated troponin Current Visit: Yes Status: Acute Code(s): R79.89 - OTHER SPECIFIED ABNORMAL FINDINGS OF BLOOD CHEMISTRY (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 No evidence of pulmonary embolism. 2. Mild centrilobular emphysematous changes predominantly involving both upper lobes. Stable finding. 3. A probable perifissural nodule along the right horizontal fissure measured about 5 mm. 4. No pulmonary mass, collapse, or consolidative changes. Stable finding. 5. Bilateral mild pleural effusion is seen. Interval new finding. 6. Mild cardiomegaly. 7. Calcified densities were seen in the left breast. Stable finding. - Likely from COPD exacerbation +/- pleural effusions - diuresis - Duonebs/steroids, supplemental O2 - Follow up CXR in AM - Echo - Monitor O2 sats - Does not wear O2 at baseline- currently on 2lNC at 93% 02/17 - O2 needed after exertion - RT eval for home O2 - May need overnight Pulse ox 02/19 - steroids stopped - Qualified for home O2 by RT, case management setting this up for home. Code(s): R06.00 - DYSPNEA, UNSPECIFIED (2) Pleural effusion Current Visit: Yes Status: Acute Assessment & Plan: - BL moderate - Lasix 40 IV BID - repeat CXR in AM - ECHO 02/17 - CXR Impression: Nonacute hyperinflated limited chest again with chronic features. - Continue IV lasix for now. Code(s): J90 - PLEURAL EFFUSION, NOT ELSEWHERE CLASSIFIED (3) Iron deficiency anemia Current Visit: Yes Status: Chronic Assessment & Plan: - Continue IV iron - H&H Q6 - Hg 7.1 this AM - iron panel reviewed - Will need GI f/u OP 02/17 - Hgb 7.4- stable 02/18 - Hgb 7.4 stable Code(s): D50.9 - IRON DEFICIENCY ANEMIA, UNSPECIFIED (4) Obesity, Class III, BMI 40-49.9 (morbid obesity) Current Visit: Yes Status: Chronic Assessment & Plan: - advised diet and exercise control Code(s): E66.01 - MORBID (SEVERE) OBESITY DUE TO EXCESS CALORIES (5) Elevated troponin Current Visit: Yes Status: Acute Assessment & Plan: - trop 0.039, 0.038, 0.036- trended down - Likely demand ischemia - denies CP - EKG reviewed - ECHO - Tele - Will need OP cardiology referral at d/c. 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 Gonzalez - Continue Vowst- PO per ID - stool sample pending - no loose stools since admission - isolation - will need GI referral at d/c Code(s): A49.8 - OTHER BACTERIAL INFECTIONS OF UNSPECIFIED SITE (7) Colon cancer Current Visit: No Status: Chronic Qualifiers: Colon location: overlapping sites Qualified Code(s): C18.8 - Malignant neoplasm of overlapping sites of colon Assessment & Plan: - adds to complexity - Status post hemicolectomy and chemo (8) Hypokalemia Current Visit: No Status: Chronic Assessment & Plan: - K+ 3.4- replaced- recheck when supplementation completed 02/17 - K+ 3.9- stable Code(s): E87.6 - HYPOKALEMIA Code(s): E87.6 - HYPOKALEMIA (10) Acute exacerbation of CHF (congestive heart failure) Current Visit: Yes Status: Acute Assessment & Plan: - Cardiology consulted - Echo shows EF 50% - Per cardiology recs: daily weight, I&O's, continue Lasix, Jardiance started - + JVD VTE: Lovenox PPI: Protonix Next of KIN: Yvonne Sandoval [phone] D/C plan: 1-2 days Code status: Full Code(s): I50.9 - HEART FAILURE, UNSPECIFIED
[2024-02-19] MEDS: JARDIANCE PO SCH (13:54)
[2024-02-19 19:32] LABS: 027 TOX PROD PRESUMPTIVE NEGATIVE (NEGATIVE); TOXIGENIC C. DIFF ORG NEGATIVE (NEGATIVE)
[2024-02-20 04:59] LABS: Hematocrit 27.1 % (34.1-44.9); Hemoglobin 7.5 g/dL (11.2-15.7); Mean Cell Volume 78.1 fL (79.4-94.8); Mean Corpuscular Hemoglobin 21.6 pg (25.6-32.2); Mean Corpuscular Hgb Concent. 27.7 g/dL (32.2-35.5); Mean Platelet Volume 10.7 fL (9.4-12.3); Platelet Count 203 x10^3/uL (182-369); Red Blood Count 3.47 x10^6/uL (3.93-5.22); Red Cell Distribution Width 16.7 % (11.7-14.4); White Blood Count 12.8 x10^3/uL (3.98-10.04)
[2024-02-20 05:29] LABS: ALBUMIN 3.6 g/dL (3.5-5.0); ANION GAP 10.2 MEQ/L (5-15); BILIRUBIN,TOTAL 0.3 mg/dL (0.2-1.3); Calcium 9.1 mg/dL (8.4-10.2); Creatinine 1 0.91 mg/dL (0.52-1.04); EST GLOMERULAR FILTRATION RATE 65.4 ML/MIN; Potassium 3.8 mmol/L (3.5-5.1); Total Protein 6.3 g/dL (6.3-8.2)
[2024-02-20 06:20] LABS: Slide Review YES
--- NOTE | 2024-02-20 11:44 | PCM.NOTE ---
Date and Time: 02/20/24 1139 Subjective Assessment: 02/17/24 Ms. CONCEPCION is a 74 year old female with a past medical history significant for hypertension, hyperlipidemia, colon cancer status post chemotherapy via port and COPD. She presented to the hospital on 02/16/24 with complaints of shortness of breath. Upon arrival, she was found to have a slightly elevated troponin at 0.039. No fever/chills. No nausea, vomiting or diarrhea. No chest pain or palpitations. She had a CTA chest that was negative for PE, but did show some new mild bilateral pleural effusions. She has also had a decreasing hemoglobin over the past year from 11.9 down to 7.3 but no dark stools noted. Iron has been low and she has been receiving Op iron infusions that have been continued IP. She reports she has had C- diff for the past three months, has been taking Vanco orally, last dose three days ago. She was then placed on Vowst by infectious disease- Dr. Gonzalez. She reports she has not had any loose stools since starting this medication. She is in isolation for c-diff hx. Echo to be done today. Continue Lasix 40 IV BID. She remains on 2lNC @ 93%. Will recheck CXR in AM. She will need an appointment with cardiology OP at d/c. She reports she has never seen one in the past and has no heart hx. She denies CP, abd. pain, N/V/D. 02/18/24 Pt resting in bed. She reports she has been doing well until she gets up to walk to the bathroom then she feels she needs her O2 back on and is SOB. Repeat CXR negative and does not show any pleural effusions. She states she still does not feel well and will not go home today. She also stated if we discharge her she will come right back to the ER to be admitted. WBC is elevated at 18.8 may be 2:2 steroids. Lung sounds are clear. Will check UA since she still does not feel well. Will also have RT eval for home O2. She may need an overnight pulse ox. Hgb stable at 7.4. Echo is still pending reading by cardiology. She denies CP, A bd. pain. N/V/D. Will have PT eval as she reports weakness and SOB with exertion. She would benefit from OP PT or HHC. At this time. she is refusing both. Maybe if PT evals they could convince her otherwise. 02/19/24 Pt resting in bed. She continues to have SOB with exertion. Cardiology consulted today and explained she needs to stay another day or 2 for CHF exacerbation with continued Lasix IV and added Jardiance. Echo results show EF 50%. Overnight pulse showed need for home O2 at night. She also needs O2 with walking. Case management to set up home O2. She states she does not feel well. Explained this is r/t CHF exacerbation. She denies CP, abd pain, N/V/D. 02/20/24 Pt resting in bed. She generally does not feel well she explained. She states she normally take Excedrin migraine for joint aches. Explained I would advise her not to take this d/t CHF and it has caffeine in it. Tylenol provided for OA pain. Encouraged PT and she refuses. Pt placed on fluid restriction and continue d Lasix for CHF exacerbation. She continues to have SOB with exertion. Will continue to monitor I&O and daily weight closely. JVD on the right has improved from yesterday. She denies CP, abd. pain, N/V/D. C-diff testing negative. - Review of Systems Constitutional: Weakness, No Fever, No Chills Eyes: No Symptoms Ears, Nose, & Throat: No Symptoms Respiratory: Short Of Breath (with walking), No Cough Cardiac: No Chest Pain, No Edema, No Syncope Abdominal/Gastrointestinal: No Abdominal Pain, No Nausea, No Vomiting, No Diarrhea Genitourinary Symptoms: No Dysuria Musculoskeletal: Joint Pain, No Back Pain, No Neck Pain Skin: No Rash Neurological: No Dizziness, No Focal Weakness, No Sensory Changes Psychological: No Symptoms Endocrine: No Symptoms Hematologic/Lymphatic: No Symptoms Immunological/Allergic: No Symptoms Objective Exam General Appearance: no apparent distress, alert, obese Neurologic Exam: alert, oriented x 3, cooperative, normal mood/affect, nml ce rebellar function, sensation nml, No motor deficits Skin Exam: normal color, warm, dry, pale Wound Assessment: Skin/Wound Assessment Wound/Incision Assessment Start: 02/16/24 22:02 Text: Status: Active Freq: Q6H Protocol: Document 02/20/24 07:52 FABIÁN (Rec: 02/20/24 08:03 FABIÁN [id number]) Wound/Incision Assessment Medial Abdomen Wound Assessment Shift Assessment Wound Type BRIGHT RED AREA, PT STATES THAT SHE HAS ECZEMA Wound Stage Non Pressure Wound Drainage Amount Minimal Drainage Description BLOODY Drainage Odor None/Absent General Appearance Reddened Wound Bed Greatest Portion Red (Granulation) Wound Bed Lesser Portion Red (Granulation) Surrounding Tissue Cyrus Eye Exam: PERRL, EOMI, eyes nml inspection Ears, Nose, Throat Exam: normal ENT inspection, pharynx normal, moist mucous membranes Neck Exam: normal inspection, non-tender, supple, full range of motion Respiratory Exam: normal breath sounds, lungs clear, No respiratory distress Cardiovascular Exam: regular rate/rhythm, normal heart sounds Gastrointestinal/Abdomen Exam: soft, No tenderness, No mass Extremity Exam: normal inspection, normal range of motion Back Exam: normal inspection, normal range of motion, No CVA tenderness, No vertebral tenderness Pelvic Exam: deferred Rectal Exam: deferred Objective Data Vital Signs: Vital Signs - 24 hr Temp Pulse Resp BP Pulse Ox 02/20/24 07:45 97.5 F 78 14 125/65 98 02/20/24 07:07 73 16 96 02/20/24 04:00 97.7 F 74 20 118/62 97 02/20/24 00:00 97.5 F 72 18 119/64 98 02/19/24 20:00 97.3 F 72 22 119/60 97 02/19/24 18:30 95 H 16 99 02/19/24 16:00 97.4 F 89 20 119/64 91 L 02/19/24 12:23 92 L 02/19/24 12:00 97.7 F 100 H 20 106/59 Pain Assessment - Last Documented Pain Intensity 7 Pain Scale Used 0-10 Pain Scale Intake and Output: Intake & Output 02/17/24 02/18/24 02/19/24 02/20/24 11:59 11:59 11:59 11:59 Intake Total 1480 1060 1860 1740 Output Total 2625 1100 2800 Balance 1480 -1565 760 -1060 Weight 116.1 kg 115.1 kg 112.718 kg 111.811 kg Lab Results: Lab Results-Last 24 Hours 02/19/24 02/19/24 02/20/24 Range/Units 15:55 18:45 04:08 WBC 12.8 H (3.98-10.04) x10^3/uL RBC 3.47 L (3.93-5.22) x10^6/uL Hgb 7.5 L (11.2-15.7) g/dL Hct 27.1 L (34.1-44.9) % MCV 78.1 L (79.4-94.8) fL MCH 21.6 L (25.6-32.2) pg MCHC 27.7 L (32.2-35.5) g/dL RDW 16.7 H (11.7-14.4) % Plt Count 203 D (182-369) x10^3/uL MPV 10.7 (9.4-12.3) fL Sodium (135-145) mmol/L Potassium 3.2 L (3.5-5.1) mmol/L Chloride (98-107) mmol/L Carbon Dioxide (22-30) mmol/L Anion Gap (5-15) MEQ/L BUN (7-17) mg/dL Creatinine (0.52-1.04) mg/dL Estimated GFR ML/MIN Glucose (74-106) mg/dL Calcium (8.4-10.2) mg/dL Magnesium (1.6-2.3) mg/dL Total Bilirubin (0.2-1.3) mg/dL AST (14-36) U/L ALT (0-35) U/L Alkaline Phosphatase (38-126) U/L Serum Total Protein (6.3-8.2) g/dL Albumin (3.5-5.0) g/dL C. difficile Screen NEGATIVE (NEGATIVE) C.difficile [id number]-NAP1-B1 PRESUMPTIVE NEGATIVE (NEGATIVE) Slides for Path Review YES 02/20/24 02/20/24 Range/Units 04:08 04:08 WBC (3.98-10.04) x10^3/uL RBC (3.93-5.22) x10^6/uL Hgb (11.2-15.7) g/dL Hct (34.1-44.9) % MCV (79.4-94.8) fL MCH (25.6-32.2) pg MCHC (32.2-35.5) g/dL RDW (11.7-14.4) % Plt Count (182-369) x10^3/uL MPV (9.4-12.3) fL Sodium 137 (135-145) mmol/L Potassium 3.8 (3.5-5.1) mmol/L Chloride 100 (98-107) mmol/L Carbon Dioxide 31 H (22-30) mmol/L Anion Gap 10.2 (5-15) MEQ/L BUN 34 H (7-17) mg/dL Creatinine 0.91 (0.52-1.04) mg/dL Estimated GFR 65.4 ML/MIN Glucose 92 (74-106) mg/dL Calcium 9.1 (8.4-10.2) mg/dL Magnesium 2.2 (1.6-2.3) mg/dL Total Bilirubin 0.30 (0.2-1.3) mg/dL AST 31 (14-36) U/L ALT 29 (0-35) U/L Alkaline Phosphatase 76 (38-126) U/L Serum Total Protein 6.3 (6.3-8.2) g/dL Albumin 3.6 (3.5-5.0) g/dL C. difficile Screen (NEGATIVE) C.difficile 027-NAP1-B1 (NEGATIVE) Slides for Path Review Multi-Disciplinary Progress Notes: Multi-Disciplinary Progress Notes 02/19/24 12:02 Case Management Note by Santa Montanez PATIENT REPORTS SHE HAS PULSE OX AT HOME Initialized on 02/19/24 12:02 - END OF NOTE 02/19/24 11:56 Case Management Note by Santa Montanez Addendum entered by Santa Montanez 02/19/24 12:04: [facility] REPORTS PATIENT QUALIFICATION TODAY IS GOOD THRU 02/20. IF PATIENT DOES NOT DC HOME ON 02/20 SHE WILL NEED REQUALIFIED FOR OXYGEN Original Note: ORDER FOR 24 HR OXYGEN SUBMITTED TO [facility]( [facility] ORER FOR 2L/NC 25/02 DELIVERY INSTRUCTIONS GIVEN TO NURSE AND PLACED IN DC INSTRUCTIONS. PATIENT TO BE SENT HOME WITH POTABLE TANK FROM [facility] AT TIME OF DC Initialized on 02/19/24 11:56 - END OF NOTE Assessment/Plan (1) Dyspnea Current Visit: Yes Status: Acute Code(s): R06.00 - DYSPNEA, UNSPECIFIED (2) Pleural effusion Current Visit: Yes Status: Acute Code(s): J90 - PLEURAL EFFUSION, NOT ELSEWHERE CLASSIFIED (3) Iron deficiency anemia Current Visit: Yes Status: Chronic Code(s): D50.9 - IRON DEFICIENCY ANEMIA, UNSPECIFIED (4) Obesity, Class III, BMI 40-49.9 (morbid obesity) Current Visit: Yes Status: Chronic Code(s): E66.01 - MORBID (SEVERE) OBESITY DUE TO EXCESS CALORIES (5) Elevated troponin Current Visit: Yes Status: Acute Code(s): R79.89 - OTHER SPECIFIED ABNORMAL FINDINGS OF BLOOD CHEMISTRY (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 No evidence of pulmonary embolism. 2. Mild centrilobular emphysematous changes predominantly involving both upper lobes. Stable finding. 3. A probable perifissural nodule along the right horizontal fissure measured about 5 mm. 4. No pulmonary mass, collapse, or consolidative changes. Stable finding. 5. Bilateral mild pleural effusion is seen. Interval new finding. 6. Mild cardiomegaly. 7. Calcified densities were seen in the left breast. Stable finding. - Likely from COPD exacerbation +/- pleural effusions - diuresis - Duonebs/steroids, supplemental O2 - Follow up CXR in AM - Echo - Monitor O2 sats - Does not wear O2 at baseline- currently on 2lNC at 93% 02/17 - O2 needed after exertion - RT eval for home O2 - May need overnight Pulse ox 02/19 - steroids stopped - Qualified for home O2 by RT, case management setting this up for home. - improving daily with lasix Code(s): R06.00 - DYSPNEA, UNSPECIFIED (2) Pleural effusion Current Visit: Yes Status: Acute Assessment & Plan: - BL moderate - Lasix 40 IV BID - repeat CXR in AM - ECHO 02/17 - CXR Impression: Nonacute hyperinflated limited chest again with chronic features. - Continue IV lasix for now. - resolved Code(s): J90 - PLEURAL EFFUSION, NOT ELSEWHERE CLASSIFIED (3) Iron deficiency anemia Current Visit: Yes Status: Chronic Assessment & Plan: - Continue IV iron - H&H Q6 - Hg 7.1 this AM - iron panel reviewed - Will need GI f/u OP 02/17 - Hgb 7.4- stable 02/18 - Hgb 7.4 stable 02/19 - hgb 7.5 Code(s): D50.9 - IRON DEFICIENCY ANEMIA, UNSPECIFIED (4) Obesity, Class III, BMI 40-49.9 (morbid obesity) Current Visit: Yes Status: Chronic Assessment & Plan: - advised diet and exercise control Code(s): E66.01 - MORBID (SEVERE) OBESITY DUE TO EXCESS CALORIES (5) Elevated troponin Current Visit: Yes Status: Acute Assessment & Plan: - trop 0.039, 0.038, 0.036- trended down - Likely demand ischemia - denies CP - EKG reviewed - ECHO reviewed - Tele - Will need OP cardiology referral at d/c. 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 Gonzalez - Continue Vowst- PO per ID - stool sample pending - no loose stools since admission - isolation - will need GI referral at d/c 02/19 - c-diff negative Code(s): A49.8 - OTHER BACTERIAL INFECTIONS OF UNSPECIFIED SITE (7) Colon cancer Current Visit: No Status: Chronic Qualifiers: Colon location: overlapping sites Qualified Code(s): C18.8 - Malignant neoplasm of overlapping sites of colon Assessment & Plan: - adds to complexity - Status post hemicolectomy and chemo (8) Hypokalemia Current Visit: No Status: Chronic Assessment & Plan: - K+ 3.4- replaced- recheck when supplementation completed 02/17 - K+ 3.9- stable 02/18 - K+ 3.3- replaced- trend 02/19 - resolved Code(s): E87.6 - HYPOKALEMIA Code(s): E87.6 - HYPOKALEMIA (10) Acute exacerbation of CHF (congestive heart failure) Current Visit: Yes Status: Acute Assessment & Plan: - Cardiology consulted - Echo shows EF 50% - Per cardiology recs: daily weight, I&O's, continue Lasix, Jardiance started - + JVD - Continue Lasix BID 02/19 - JVD improved - Fluid restriction - Cardiology note reviewed and agree with plan of care. - can change IV furosemide to torsemide 40 mg daily for its superior bioavailability @ d/c. - Echo: TRANSTHORACIC ECHOCARDIOGRAM 02/17/2024: 1. Technically difficult study. 2. Mildly dilated left atrium. Other chamber sizes are normal. 3. Borderline low left ventricular systolic function with mild septal hypokinesis. Estimated EF 50% 4. Normal right ventricular systolic function. 5. Moderate aortic sclerosis without stenosis. Unable to exclude a bicuspid aortic valve. 6. Doppler: Mild mitral and pulmonic regurgitation. 7. Unable to estimate PA systolic pressure. 8. Mildly elevated right atrial pressure. 9. No pericardial effusion. VTE: Lovenox PPI: Protonix Next of KIN: Yvonne Sandoval [phone] D/C plan: tomorrow Code status: Full Code(s): I50.9 - HEART FAILURE, UNSPECIFIED Code(s): I50.9 - HEART FAILURE, UNSPECIFIED
[2024-02-21 05:18] LABS: Hematocrit 28.8 % (34.1-44.9); Hemoglobin 8.2 g/dL (11.2-15.7); Mean Corpuscular Hemoglobin 22.2 pg (25.6-32.2); Mean Corpuscular Hgb Concent. 28.5 g/dL (32.2-35.5); Mean Platelet Volume 9.9 fL (9.4-12.3); Platelet Count 320 x10^3/uL (182-369); Red Blood Count 3.69 x10^6/uL (3.93-5.22); Red Cell Distribution Width 18.6 % (11.7-14.4)
[2024-02-21 05:44] LABS: ALBUMIN 3.6 g/dL (3.5-5.0); ANION GAP 7.3 MEQ/L (5-15); BILIRUBIN,TOTAL 0.7 mg/dL (0.2-1.3); Creatinine 1 0.73 mg/dL (0.52-1.04); EST GLOMERULAR FILTRATION RATE 85.2 ML/MIN; Total Protein 6.4 g/dL (6.3-8.2)
[2024-02-21 05:47] LABS: Potassium 2.7 mmol/L (3.5-5.1)
[2024-02-21] MEDS ORDERED: Klor Con ONE ×2 (06:16→08:29)
[2024-02-21] MEDS ORDERED: Sodium Chloride 0.9% 1000 ML 1,000 ML ONE (06:17)
[2024-02-21] MEDS ORDERED: POTASSIUM CHLORIDE 20 mEq IN WATER 100ML 100 ML IV ONE ×2 (06:17→08:30)
[2024-02-21] MEDS: Klor Con PO ONE ×3 (06:22→11:27)
[2024-02-21] MEDS: POTASSIUM CHLORIDE 20 mEq IN WATER 100ML 20 MEQ/100 ML BAG IV ONE ×3 (06:22→11:33)
[2024-02-21] MEDS: Sodium Chloride 0.9% 1000 ML 1,000 ML IV SCH (06:23)
[2024-02-21 06:40] LABS: Slide Review YES
[2024-02-21] MEDS ORDERED: Lasix 40 MG/4 ML ONE (08:28)
[2024-02-21] MEDS ORDERED: FOLATE 1 MG ONE (08:29)
[2024-02-21] MEDS ORDERED: Vitamin B-12 500 MCG ONE (08:29)
[2024-02-21] MEDS ORDERED: Toprol Xl 100 MG PO ONE (08:29)
[2024-02-21] MEDS ORDERED: NEURONTIN ONE (08:29)
[2024-02-21] MEDS ORDERED: Protonix 40MG Tablet ONE (08:29)
[2024-02-21] MEDS ORDERED: Carafate 1 GM PO ONE (08:30)
[2024-02-21] MEDS ORDERED: VITAMIN D PO ONE (08:30)
[2024-02-21] MEDS ORDERED: ENOXAPARIN SODIUM SQ ONE (08:30)
--- NOTE | 2024-02-21 10:53 | XRAY ---
CLINICAL HISTORY: SOB COMPARISON: Chest X-ray dated 02/18/24. TECHNIQUE: X-ray of the chest showing AP and lateral views. FINDINGS: Cardiac monitoring electrodes. The tracheal lucency is centrally placed. Venous central access /Portacath with its tip placed in the topography of the right atrium. Emphysematous changes seen bilaterally. There is no evidence of any focal area of consolidation. Mild atheromatosis in aorta. Normal configuration of the other mediastinum structures. Pulmonary kevon with normal dimensions and keeping its normal position. Normal transverse cardiac diameter noted. The costophrenic and cardiophrenic angles are clear. Visualized bones show a chronic fracture of the right 7th posterior rib. Degenerative changes in the thoracic spine. The spinal cord stimulator is seen in the right position. IMPRESSION: No evidence of consolidation or pleural effusion. No significant interval changes seen. Electronically Signed by: Nikolay Downs MD. (02/21/2024 10:48:48 EDT)
[2024-02-21] MEDS: Klor Con PO SCH (11:34)
--- NOTE | 2024-02-21 11:47 | PCM.DS ---
Discharge Summary Date of Admission: 02/16/24 20:10 Date of Discharge: 02/21/24 Admitting Physician: MAX MCLEAN MD Consults: Consults on Case 02/18/24 13:10 Consult Cardiology ROUTINE Primary Care Provider: WANDER MONTOYA Allergies Allergies bee venom protein (honey bee) Allergy (Severe, Verified 02/16/24 20:59) Anaphylactic Reaction venom-wasp Allergy (Verified 02/16/24 20:59) Anaphylactic Reaction acetaminophen [From Tylenol-Codeine] Adverse Reaction (Mild, Verified 02/16/24 20:58) Nausea codeine [From Tylenol-Codeine] Adverse Reaction (Mild, Verified 02/16/24 20:58) Nausea bandaids Adverse Reaction (Mild, Uncoded 02/16/24 12:58) redness/swelling Hospital Summary - Hospital Course Hospital Course: 02/17/24 Ms. CONCEPCION is a 74 year old female with a past medical history significant for hypertension, hyperlipidemia, colon cancer status post chemotherapy via port and COPD. She presented to the hospital on 02/16/24 with complaints of shortness of breath. Upon arrival, she was found to have a slightly elevated troponin at 0.039. No fever/chills. No nausea, vomiting or diarrhea. No chest pain or palpitations. She had a CTA chest that was negative for PE, but did show some new mild bilateral pleural effusions. She has also had a decreasing hemoglobin over the past year from 11.9 down to 7.3 but no dark stools noted. Iron has been low and she has been receiving Op iron infusions that have been continued IP. She reports she has had C- diff for the past three months, has been taking Vanco orally, last dose three days ago. She was then placed on Vowst by infectious disease- Dr. Gonzalez. She reports she has not had any loose stools since starting this medication. She is in isolation for c-diff hx. Echo to be done today. Continue Lasix 40 IV BID. She remains on 2lNC @ 93%. Will recheck CXR in AM. She will need an appointment with cardiology OP at d/c. She reports she has never seen one in the past and has no heart hx. She denies CP, abd. pain, N/V/D. 02/18/24 Pt resting in bed. She reports she has been doing well until she gets up to walk to the bathroom then she feels she needs her O2 back on and is SOB. Repeat CXR negative and does not show any pleural effusions. She states she still does not feel well and will not go home today. She also stated if we discharge her she will come right back to the ER to be admitted. WBC is elevated at 18.8 may be 2:2 steroids. Lung sounds are clear. Will check UA since she still does not feel well. Will also have RT eval for home O2. She may need an overnight pulse ox. Hgb stable at 7.4. Echo is still pending reading by cardiology. She denies CP, Abd. pain. N/V/D. Will have PT eval as she reports weakness and SOB with e xertion. She would benefit from OP PT or HHC. At this time. she is refusing both. Maybe if PT evals they could convince her otherwise. 02/19/24 Pt resting in bed. She continues to have SOB with exertion. Cardiology consulted today and explained she needs to stay another day or 2 for CHF exacerbation with continued Lasix IV and added Jardiance. Echo results show EF 50%. Overnight pulse showed need for home O2 at night. She also needs O2 with walking. Case management to set up home O2. She states she does not feel well. Explained this is r/t CHF exacerbation. She denies CP, abd pain, N/V/D. 02/20/24 Pt resting in bed. She generally does not feel well she explained. She states she normally take Excedrin migraine for joint aches. Explained I would advise her not to take this d/t CHF and it has caffeine in it. Tylenol provided for OA pain. Encouraged PT and she refuses. Pt placed on fluid restriction and continued Lasix for CHF exacerbation. She continues to have SOB with exertion. Will continue to monitor I&O and daily weight closely. JVD on the right has improved from yesterday. She denies CP, abd. pain, N/V/D. C-diff testing negative. 02/21/24 Pt resting in bed. Encouraged pt to sit in a chair today, work with PT, and walk on unit with staff today to prepare for d/c home. She is refusing to do any of this, and has been refusing all week. She wants to just lay in the bed. She states she is not going home today as she was told her K+ was critically low by nursing last night and and this is very dangerous. Explained we are replacing this and will correct it before she discharges today. She has a known hx of chronically low K+ and takes replacement OP. Will d/c with K+ replacement for 3 days in combination to what she takes daily. It is low today d/t BID Lasix she was being given IV for CHF. She refuses rehab or OP PT. She is agreeable to home health care and case management to set this up. Home oxygen has also been set up. She has an OP cardiology appointment made. She reports right shoulder pain and discomfort today with SOB. She has a hx of chronic OA. She has no edema or erythema of the shoulder. She has not had a fall or injury while here. Chest XR negative today. EKG and trops ordered as she is insistent she is not leaving. Discussed again I will check labs and CXR and if all ok she will be discharging today. She denies Abd. pain, N/V/D. - Vitals & Intake/Output Vital Signs: Vital Signs Temperature 97.3 F 02/21/24 08:00 Pulse Rate 82 02/21/24 10:37 Respiratory Rate 16 02/21/24 10:37 Blood Pressure 136/70 02/21/24 08:00 O2 Sat by Pulse Oximetry 97 02/21/24 10:37 Intake & Output: Intake & Output 02/18/24 02/19/24 02/20/24 02/21/24 11:59 11:59 11:59 11:59 Intake Total 1060 1860 1740 860 Output Total 2625 1100 2800 2900 Balance -1565 820 -1060 -2040 Weight 115.1 kg 112.718 kg 111.811 kg 112.6 kg - Lab Result Diagrams: 02/21/24 05:10 02/21/24 14:20 Lab Results-Last 24 Hrs: Lab Results-Last 24 Hours 02/21/24 02/21/24 02/21/24 Range/Units 05:10 05:10 05:48 WBC 9.0 (3.98-10.04) x10^3/uL RBC 3.69 L (3.93-5.22) x10^6/uL Hgb 8.2 L (11.2-15.7) g/dL Hct 28.8 L (34.1-44.9) % MCV 78.0 L (79.4-94.8) fL MCH 22.2 L (25.6-32.2) pg MCHC 28.5 L (32.2-35.5) g/dL RDW 18.6 H (11.7-14.4) % Plt Count 320 D (182-369) x10^3/uL MPV 9.9 (9.4-12.3) fL Sodium 136 (135-145) mmol/L Potassium 2.7 L* D (3.5-5.1) mmol/L Chloride 94 L (98-107) mmol/L Carbon Dioxide 37 H (22-30) mmol/L Anion Gap 7.3 (5-15) MEQ/L BUN 33 H (7-17) mg/dL Creatinine 0.73 (0.52-1.04) mg/dL Estimated GFR 85.2 ML/MIN Glucose 99 (74-106) mg/dL Calcium 9.0 (8.4-10.2) mg/dL Magnesium 2.2 (1.6-2.3) mg/dL Total Bilirubin 0.70 (0.2-1.3) mg/dL AST 30 (14-36) U/L ALT 29 (0-35) U/L Alkaline Phosphatase 82 (38-126) U/L Troponin I (0.000-0.033) ng/mL Serum Total Protein 6.4 (6.3-8.2) g/dL Albumin 3.6 (3.5-5.0) g/dL Slides for Path Review YES 02/21/24 02/21/24 Range/Units 09:10 09:10 WBC (3.98-10.04) x10^3/uL RBC (3.93-5.22) x10^6/uL Hgb (11.2-15.7) g/dL Hct (34.1-44.9) % MCV (79.4-94.8) fL MCH (25.6-32.2) pg MCHC (32.2-35.5) g/dL RDW (11.7-14.4) % Plt Count (182-369) x10^3/uL MPV (9.4-12.3) fL Sodium (135-145) mmol/L Potassium 3.0 L* (3.5-5.1) mmol/L Chloride (98-107) mmol/L Carbon Dioxide (22-30) mmol/L Anion Gap (5-15) MEQ/L BUN (7-17) mg/dL Creatinine (0.52-1.04) mg/dL Estimated GFR ML/MIN Glucose (74-106) mg/dL Calcium (8.4-10.2) mg/dL Magnesium (1.6-2.3) mg/dL Total Bilirubin (0.2-1.3) mg/dL AST (14-36) U/L ALT (0-35) U/L Alkaline Phosphatase (38-126) U/L Troponin I 0.029 (0.000-0.033) ng/mL Serum Total Protein (6.3-8.2) g/dL Albumin (3.5-5.0) g/dL Slides for Path Review - Radiology Exams Ordered Rad Exams-Entire Visit: Radiology Procedures Category Date Time Status CHEST 2 VIEWS (PA AND LAT) Stat Exams 02/21/24 09:19 Completed - Procedures and Test Procedures and Tests throughout Hospitalization: Therapy Orders & Screens 02/16/24 13:43 Respiratory Therapy Assessment DAILY Comment: 02/16/24 20:26 EKG REPEAT IN AM Comment: Oxygen Nasal Cannula 2 lpm Comment: Respiratory Therapy Consult ONCE Comment: Reason For Exam: 02/17/24 01:48 Respiratory Therapy Assessment DAILY Comment: Diagnosis: Dyspnea; Bilateral pleural effusions; Anemia; Elevated troponin 02/18/24 11:39 RT Miscellaneous Order ROUTINE Comment: Physician Instructions: Reason For Exam: eval for home O2- may need overnight pulse ox Diagnosis: Dyspnea; Bilateral pleural effusions; Anemia; Elevated troponin 02/18/24 11:45 PT Eval & Treat (MD Order) ONCE Reason for Eval:: SOB and weakness with waling- eval for home needs vs. OP PT Diagnosis: Dyspnea; Bilateral pleural effusions; Anemia; Elevated troponin 02/21/24 09:19 EKG STAT Comment: Diagnosis: Dyspnea; Bilateral pleural effusions; Anemia; Elevated troponin Discharge Exam General Appearance: no apparent distress, alert, obese Neurologic Exam: alert, oriented x 3, cooperative, normal mood/affect, nml cerebellar function, sensation nml, agitation, No motor deficits Eye Exam: PERRL, EOMI, eyes nml inspection Ears, Nose, Throat Exam: normal ENT inspection, pharynx normal, moist mucous membranes Neck Exam: normal inspection, non-tender, supple, full range of motion Respiratory Exam: normal breath sounds, lungs clear, No respiratory distress Cardiovascular Exam: regular rate/rhythm, normal heart sounds Gastrointestinal/Abdomen Exam: soft, No tenderness, No mass Pelvic Exam: deferred Rectal Exam: deferred Back Exam: normal inspection, normal range of motion, No CVA tenderness, No vertebral tenderness Extremity Exam: normal inspection, normal range of motion Skin Exam: normal color, warm, dry, pale Wound Assessment: Skin/Wound Assessment Wound/Incision Assessment Start: 02/16/24 22:02 Text: Status: Active Freq: Q6H Protocol: Document 02/21/24 02:00 TC (Rec: 02/21/24 03:07 TC [id number]) Wound/Incision Assessment Medial Abdomen Wound Assessment Shift Assessment Wound Type BRIGHT RED AREA, PT STATES THAT SHE HAS ECZEMA Wound Stage Non Pressure Wound Drainage Amount Minimal Drainage Description BLOODY Drainage Odor None/Absent General Appearance Reddened Wound Bed Greatest Portion Red (Granulation) Wound Bed Lesser Portion Red (Granulation) Surrounding Tissue [place] Wound Photo Photo Taken No Final Diagnosis/Problem List - Final Discharge Diagnosis/Problem (1) Dyspnea Current Visit: Yes Status: Acute Code(s): R06.00 - DYSPNEA, UNSPECIFIED (2) Pleural effusion Current Visit: Yes Status: Acute Code(s): J90 - PLEURAL EFFUSION, NOT ELSEWHERE CLASSIFIED (3) Iron deficiency anemia Current Visit: Yes Status: Chronic Code(s): D50.9 - IRON DEFICIENCY ANEMIA, UNSPECIFIED (4) Obesity, Class III, BMI 40-49.9 (morbid obesity) Current Visit: Yes Status: Chronic Code(s): E66.01 - MORBID (SEVERE) OBESITY DUE TO EXCESS CALORIES (5) Elevated troponin Current Visit: Yes Status: Acute Code(s): R79.89 - OTHER SPECIFIED ABNORMAL FINDINGS OF BLOOD CHEMISTRY (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 No evidence of pulmonary embolism. 2. Mild centrilobular emphysematous changes predominantly involving both upper lobes. Stable finding. 3. A probable perifissural nodule along the right horizontal fissure measured about 5 mm. 4. No pulmonary mass, collapse, or consolidative changes. Stable finding. 5. Bilateral mild pleural effusion is seen. Interval new finding. 6. Mild cardiomegaly. 7. Calcified densities were seen in the left breast. Stable finding. - Likely from COPD exacerbation +/- pleural effusions - diuresis - Duonebs/steroids, supplemental O2 - Follow up CXR in AM - Echo - Monitor O2 sats - Does not wear O2 at baseline- currently on 2lNC at 93% 02/17 - O2 needed after exertion - RT eval for home O2 - May need overnight Pulse ox 02/19 - steroids stopped - Qualified for home O2 by RT, case management setting this up for home. - improving daily with lasix 02/20 - CXR negative - 2lNC 997% Code(s): R06.00 - DYSPNEA, UNSPECIFIED (2) Pleural effusion Current Visit: Yes Status: Acute Assessment & Plan: - BL moderate - Lasix 40 IV BID - repeat CXR in AM - ECHO 02/17 - CXR Impression: Nonacute hyperinflated limited chest again with chronic features. - Continue IV lasix for now. - resolved Code(s): J90 - PLEURAL EFFUSION, NOT ELSEWHERE CLASSIFIED (3) Iron deficiency anemia Current Visit: Yes Status: Chronic Assessment & Plan: - Continue IV iron - H&H Q6 - Hg 7.1 this AM - iron panel reviewed - Will need GI f/u OP 02/17 - Hgb 7.4- stable 02/18 - Hgb 7.4 stable 02/19 - hgb 7.5 02/20 - HGB 8.2 - F/U Op with hematology Code(s): D50.9 - IRON DEFICIENCY ANEMIA, UNSPECIFIED (4) Obesity, Class III, BMI 40-49.9 (morbid obesity) Current Visit: Yes Status: Chronic Assessment & Plan: - advised diet and exercise control Code(s): E66.01 - MORBID (SEVERE) OBESITY DUE TO EXCESS CALORIES (5) Elevated troponin Current Visit: Yes Status: Acute Assessment & Plan: - trop 0.039, 0.038, 0.036- trended down - Likely demand ischemia - Cardiology consulted and discussed case - Continue lasix change to oral meds at D/C - denies CP - EKG reviewed - ECHO reviewed - Tele - Will need OP cardiology referral at d/c. 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 Gonzalez - Continue Vowst- PO per ID - stool sample pending - no loose stools since admission - isolation - will need GI referral at d/c 02/19 - c-diff negative Code(s): A49.8 - OTHER BACTERIAL INFECTIONS OF UNSPECIFIED SITE (7) Colon cancer Current Visit: No Status: Chronic Qualifiers: Colon location: overlapping sites Qualified Code(s): C18.8 - Malignant neoplasm of overlapping sites of colon Assessment & Plan: - adds to complexity - Status post hemicolectomy and chemo - F/u with oncology at d/c (8) Hypokalemia Current Visit: No Status: Chronic Assessment & Plan: - K+ 3.4- replaced- recheck when supplementation completed 02/17 - K+ 3.9- stable 02/18 - K+ 3.3- replaced- trend 02/19 - resolved 02/20 - 2.7 at 4am, rechecked at 9am and 3.0- trend - when ok will d/c with OP K+ replacement PO - repeat K+ 3.5 Code(s): E87.6 - HYPOKALEMIA Code(s): E87.6 - HYPOKALEMIA (10) Acute exacerbation of CHF (congestive heart failure) Current Visit: Yes Status: Acute Assessment & Plan: - Cardiology consulted - Echo shows EF 50% - Per cardiology recs: daily weight, I&O's, continue Lasix, Jardiance started - + JVD - Continue Lasix BID 02/19 - JVD improved - Fluid restriction - Cardiology note reviewed and agree with plan of care. - can change IV furosemide to torsemide 40 mg daily for its superior bioavailability @ d/c. - Echo: TRANSTHORACIC ECHOCARDIOGRAM 02/17/2024: 1. Technically difficult study. 2. Mildly dilated left atrium. Other chamber sizes are normal. 3. Borderline low left ventricular systolic function with mild septal hypokinesis. Estimated EF 50% 4. Normal right ventricular systolic function. 5. Moderate aortic sclerosis without stenosis. Unable to exclude a bicuspid aortic valve. 6. Doppler: Mild mitral and pulmonic regurgitation. 7. Unable to estimate PA systolic pressure. 8. Mildly elevated right atrial pressure. 9. No pericardial effusion. 02/20 - Trop x2 negative, denies CP - CXR negative - EKG reviewed Code(s): I50.9 - HEART FAILURE, UNSPECIFIED (11) Noncompliance Current Visit: Yes Status: Acute Assessment & Plan: - refuses PT, sit in chair, walk on unit. - wants to lay in bed. - refuses rehab, OP PT Code(s): Z91.199 - PT NONCOMPL WITH OTHER MED TRTMT AND REGIMEN D/T UNSP REASON (12) Weakness Current Visit: Yes Status: Acute Assessment & Plan: - Agreeable to [facility] - refuses PT, walk on unit, sit in chair. - refuses rehab Code(s): R53.1 - WEAKNESS - Discharge Discharge Date: 02/21/24 Disposition: HOME HEALTH SERVICE Condition: Good Prescriptions: New Empagliflozin [Jardiance] 10 mg PO DAILY 30 Days #30 tablet Potassium Chloride 20 meq PO BID 3 Days #6 tablet Torsemide 20 mg [Demadex 20 mg] 40 mg PO DAILY 30 Days #60 tablet Continue Metoprolol Succinate 100 mg [Toprol Xl 100 MG] 100 mg PO DAILY Metoclopramide HCl 10 mg [Reglan 10 MG] 10 mg PO TIDWMEALS #30 tablet PANTOPRAZOLE 40 mg Tablet [Protonix 40MG Tablet] 40 mg PO DAILY #30 tab Amitriptyline HCl 25 mg [Amitriptyline 25 mg Tablet] 75 mg PO HS Gabapentin 300 mg PO DAILY Fluticasone Propion/Salmeterol [Advair 100-50 Diskus] 1 blist IH DAILY Dupilumab [Dupixent Pen] 300 mg SQ CLARIFY Cyanocobalamin (Vitamin B-12) [Vitamin B-12] 500 mcg PO DAILY Sucralfate 1 gm [Carafate 1 GM] 1 g PO TID Folic Acid 1 mg [Folate 1 mg] 1 mg PO DAILY Lactobacillus Acidophilus [Probiotic] 1 cap PO DAILY Fecal Microbio Spore,Live-Brpk [Vowst] 4 tab PO DAILY Cholecalciferol (Vitamin D3) [Vitamin D3] 2,000 iu PO DAILY Potassium Chloride 20 meq PO BID Famotidine 20 mg PO BID Aspirin/Acetaminophen/Caffeine [Excedrin Migraine Caplet] 2 tab PO BID Gabapentin 600 mg PO HS Discontinued Furosemide 40 mg [Lasix 40 MG] 40 mg PO DAILY Instructions: Oxygen therapy at home Additional Instructions: WEAR 2L/NC AT ALL TIMES AT HOME CALL [facility] AT [phone] WHEN YOU GET HOME SO THEY CAN DELIVER YOUR HOME CONCENTRATOR YOU CAN CONTACT THE ACO DEPARTMENT AT [phone] ext [phone] IF YOU HAVE TROUBLE AFFORDING MEDS OR YOUR OXYGEN. THEY CAN HELP WITH THE MEDICAID PROCESS [facility] HAS BEEN SET UP. THEY WILL CONTACT YOU TO ARRANGE A TIME TO COME SEE YOU. THEIR PHONE # IS [phone]. Follow up with: WANDER MONTOYA [Primary Care Provider] - 03/02/24 9:15 am MERCEDES VILLALTA PA [NON-STAFF PHY W/O PRIVILEGES] - 03/18/24 3:15 pm ([employer])
[2024-02-21 12:58] VITALS: BP 124/58; PULSE 79; RESP 12; TEMP 98.1; O2SAT 94
[2024-02-21 14:47] LABS: Potassium 3.5 mmol/L (3.5-5.1)
[2024-02-21 15:03] LABS: TROPONIN 0.032 ng/mL (0.000-0.033)
== END 2024-02-21 17:28 | disposition home health service (06) ==
LOC: ED 12:30 → MED SURG 20:10
PROVIDERS: ADMIT Internal Medicine Nephrology; ATTEND Internal Medicine Nephrology
DX: I11.0 Hypertensive heart disease with heart failure (principal); I50.9 Heart failure, unspecified; R06.00 Dyspnea, unspecified; J90 Pleural effusion, not elsewhere classified; D50.9 Iron deficiency anemia, unspecified; E66.01 Morbid (severe) obesity due to excess calories; R79.89 Other specified abnormal findings of blood chemistry; A49.8 Other bacterial infections of unspecified site; Z85.3 Personal history of malignant neoplasm of breast; R53.1 Weakness; E87.6 Hypokalemia; C18.8 Malignant neoplasm of overlapping sites of colon; Z91.199 Patient's noncompliance with other medical treatment and regimen due to unspecified reason; Z79.899 Other long term (current) drug therapy
CPT/HCPCS: 0241U; 36000; 36415; 71046; 71260; 80053; 81001; 82728; 83036; 83540; 83550; 83735; 83880; 84132; 84134; 84484; 85014; 85018; 85025; 85027; 87493; 87651; 93005; 93268; 93306; 94640; 94762; 97110; 97162; 99285; G0378; Q3014; J1642; J1650; J1756; J1940; J2919; J3480; J7609; A9270-GY

== ENCOUNTER 2024-04-25 02:46 | Emergency (ER) | payer MEDICARE ==
--- NOTE | 2024-04-25 02:54 | ERPHSYRPT ---
- History of Present Illness Time Seen by Provider: 04/25/24 02:54 Source: patient, old records Exam Limitations: no limitations Physician History: This is a 74-year-old white female who was brought into the emergency department by the paramedics because of relatively sudden onset of left shoulder pain approximately 4 hours prior to arrival. She did not suffer any acute trauma or injury. Patient does see a health director, Dr. Hardin, and states that she has never had any diagnosis of coronary artery disease or myocardial infarction. She also has never been diagnosed with atrial fibrillation per her report. She is not on any anticoagulation therapy. She has no new shortness of breath. Patient has chronic history of shortness of breath. Patient has a history of hyperlipidemia, hypertension, COPD, rheumatoid arthritis, obesity, anxiety, chronic sciatic pain, chronic anemia, gastroesophageal reflux disease and diabetes. Timing/Duration: today Severity: moderate Modifying Factors: Improves With: movement Associated Symptoms: No shortness of breath, No chest pain, No syncope, No weakness Allergies/Adverse Reactions: bee venom protein (honey bee) Allergy (Severe, Verified 04/25/24 03:01) Anaphylactic Reaction venom-wasp Allergy (Verified 04/25/24 03:01) Anaphylactic Reaction acetaminophen [From Tylenol-Codeine] Adverse Reaction (Mild, Verified 04/25/24 03:01) Nausea codeine [From Tylenol-Codeine] Adverse Reaction (Mild, Verified 04/25/24 03:01) Nausea bandaids Adverse Reaction (Mild, Uncoded 04/25/24 03:01) redness/swelling Home Medications: Metoprolol Succinate 100 mg [Toprol Xl 100 MG] 100 mg PO DAILY 11/23/20 [History] Amitriptyline HCl 25 mg [Amitriptyline 25 mg Tablet] 75 mg PO HS 03/09/22 [History] Gabapentin 300 mg PO DAILY 03/09/22 [History] Dupilumab [Dupixent Pen] 300 mg SQ CLARIFY 12/05/22 [History] Fluticasone Propion/Salmeterol [Advair 100-50 Diskus] 1 blist IH DAILY 12/05/22 [History] Cyanocobalamin (Vitamin B-12) [Vitamin B-12] 500 mcg PO DAILY 09/22/23 [History] Sucralfate 1 gm [Carafate 1 GM] 1 g PO TID 09/22/23 [History] Folic Acid 1 mg [Folate 1 mg] 1 mg PO DAILY 01/23/24 [History] Lactobacillus Acidophilus [Probiotic] 1 cap PO DAILY 01/23/24 [History] Aspirin/Acetaminophen/Caffeine [Excedrin Migraine Caplet] 2 tab PO BID 02/16/24 [History] Cholecalciferol (Vitamin D3) [Vitamin D3] 2,000 iu PO DAILY 02/16/24 [History] Famotidine 20 mg PO BID 02/16/24 [History] Fecal Microbio Spore,Live-Brpk [Vowst] 4 tab PO DAILY 02/16/24 [History] Gabapentin 600 mg PO HS 02/16/24 [History] Potassium Chloride 20 meq PO BID 02/16/24 [History] Hx Tetanus, Diphtheria Vaccination/Date Given: Yes Hx Influenza Vaccination/Date Given: Yes Hx Pneumococcal Vaccination/Date Given: Yes Travel Risk - International Travel Have you traveled outside of the country in past 3 weeks: No - Emerging Infectious Disease Are you exhibiting symptoms associated with any current EIDs: Yes Symptoms: Shortness of Breath Comment: pt just finished a round of antibiotics for c-diff - Review of Systems Constitutional: No Symptoms Eyes: No Symptoms Ears, Nose, & Throat: No Symptoms Respiratory: No Symptoms Cardiac: No Symptoms, No Chest Pain Abdominal/Gastrointestinal: No Symptoms Genitourinary Symptoms: No Symptoms Musculoskeletal: Joint Pain (Left shoulder) Skin: No Symptoms Neurological: No Symptoms Psychological: No Symptoms Endocrine: No Symptoms Hematologic/Lymphatic: No Symptoms Immunological/Allergic: No Symptoms All Other Systems: Reviewed and Negative - Past Medical History Pertinent Past Medical History: Yes Neurological History: No Pertinent History ENT History: No Pertinent History Cardiac History: High Cholesterol, Hypertension Respiratory History: COPD Endocrine Medical History: No Pertinent History Musculoskeletal History: Rheumatoid Arthritis GI Medical History: Colorectal Cancer, Diverticulosis, GERD, Polyps History: No Pertinent History Psycho-Social History: Anxiety Female Reproductive Disorders: Breast Cancer Other Medical History: C-Diff (Dr. Epstein), iron deficiency anemia (Dr. Fariha walton), eczema, bowel obstruction, chronic sciatic nerve pain - Past Surgical History Past Surgical History: Yes Neuro Surgical History: No Pertinent History Cardiac: No Pertinent History Respiratory: No Pertinent History Gastrointestinal: Colon Resection, Hernia Repair, Other Genitourinary: No Pertinent History Musculoskeletal: Joint Replacement, Orthopedic Surgery Female Surgical History: Tubal Ligation, Mastectomy Other Surgical History: Bjorn knee replacement, bariatric surgery, breast cancer with partial mastectomy left, lumpectomy right breast, port placed x 2, insertion of a sciatic nerve stimulator Significant Family History: heart disease, cancer - Social History Smoking Status: Former smoker How long have you smoked: 40 yrs Exposure to second hand smoke: Yes (occassionally) Drug Use: none Patient Lives Alone: Yes - Social Determinants of Health Will the patient participate in the screening: Yes Do you worry about a steady place to live?: No In the past 12 months,have you had to go without utilities?: No Transportation Issues: No Has anyone in your support network made you feel unsafe?: No Have you or anyone in your house had to go without enough: No - Nursing Vital Signs Nursing Vital Signs: Initial Vital Signs Temperature 98 F 04/25/24 03:00 Pulse Rate 97 H 04/25/24 03:00 Respiratory Rate 17 04/25/24 03:00 Blood Pressure 128/60 04/25/24 03:00 O2 Sat by Pulse Oximetry 98 04/25/24 03:00 Pain Scale Pain Intensity 6 - Physical Exam General Appearance: no apparent distress, alert, anxiety, obese Eye Exam: PERRL/EOMI, eyes nml inspection Ears, Nose, Throat Exam: normal ENT inspection, moist mucous membranes Neck Exam: normal inspection, non-tender, supple, full range of motion Respiratory Exam: normal breath sounds, lungs clear, airway intact, No chest tenderness, No respiratory distress Cardiovascular Exam: regular rate/rhythm, normal heart sounds, normal peripheral pulses Gastrointestinal/Abdomen Exam: soft, normal bowel sounds, No tenderness Pelvic Exam: not done Rectal Exam: not done Back Exam: normal inspection, normal range of motion, No CVA tenderness, No vertebral tenderness Extremity Exam: normal inspection, pelvis stable, limited range of motion (Left shoulder), tenderness (Left shoulder), No deformities Neurologic Exam: alert, oriented x 3, cooperative, lean sensei II-XII nml as tested, nml cerebellar function, nml station & gait, sensation nml Skin Exam: normal color, warm, dry Lymphatic Exam: No adenopathy SpO2 Interpretation: normal O2 Delivery: Room Air - Course Nursing assessment & vital signs reviewed: Yes EKG Interpreted by Me: RATE (97), A-fib, NORMAL QRS, Other (No acute ischemia. In looking at the monitor and twelve-lead EKG, the patient's rhythm or artifact. We will repeat the twelve-lead EKG after patient's left shoulder pain is controlled) Ordered Tests: Active Orders 24 hr Category Date Time Status Printing Agent STAT Care 04/25/24 03:22 Active EKG-ER Only STAT Care 04/25/24 03:22 Active IV Insertion STAT Care 04/25/24 03:22 Active SHOULDER Stat Exams 04/25/24 03:23 Completed BMP Stat Lab 04/25/24 03:51 Completed CBC W DIFF Stat Lab 04/25/24 03:51 Completed MAG [MAGNESIUM] Stat Lab 04/25/24 03:51 Completed TROPONIN Q4H Lab 04/25/24 03:51 Completed TROPONIN Q4H Lab 04/25/24 07:30 Ordered TROPONIN Q4H Lab 04/25/24 11:30 Ordered Medication Summary Discontinued Medications Generic Name Dose Route Start Last Admin Trade Name Hiteshq PRN Reason Stop Dose Admin Methylprednisolone Sodium 0 mg 04/25/24 03:25 04/25/24 03:44 Succinate 125 mg/ Sterile IV 04/25/24 03:26 125 mg Water 2 ml STAT ONE Administration Methylprednisolone Sodium Succinate Confirm 04/25/24 03:43 Methylprednis Sod Succ 125 Mg/2 Ml Vial Administered 04/25/24 03:44 Dose 125 mg .ROUTE .STK-MED ONE Orphenadrine Citrate 60 mg 04/25/24 03:24 04/25/24 03:44 Orphenadrine Citrate 60 Mg/2 Ml Vial IV 04/25/24 03:25 60 mg STAT ONE Administration Orphenadrine Citrate Confirm 04/25/24 03:43 Orphenadrine Citrate 60 Mg/2 Ml Vial Administered 04/25/24 03:44 Dose 60 mg .ROUTE .STK-MED ONE Oxycodone/Acetaminophen 1 tab 04/25/24 03:25 04/25/24 03:44 Oxycodone Hcl/Apap 5 Mg/325 Mg Tablet PO 04/25/24 03:26 1 tab STAT STA Administration Oxycodone/Acetaminophen Confirm 04/25/24 03:43 Oxycodone Hcl/Apap 5 Mg/325 Mg Tablet Administered 04/25/24 03:44 Dose 1 tab .ROUTE .STK-MED ONE Oxycodone/Acetaminophen 2 tab 04/25/24 05:13 Oxycodone Hcl/Apap 5 Mg/325 Mg Tablet PO 04/25/24 05:14 SENT HOME W/ PATIENT STA Sterile Water Confirm 04/25/24 03:43 Water For Injection,Sterile 10 Ml Vial Administered 04/25/24 03:44 Dose 10 ml IJ .STK-MED ONE Lab/Rad Data: Laboratory Result Diagrams 04/25/24 03:51 04/25/24 03:51 Laboratory Results 04/25/24 04/25/24 04/25/24 Range/Units 03:51 03:51 03:51 WBC 8.1 (3.98-10.04) x10^3/uL RBC 4.10 (3.93-5.22) x10^6/uL Hgb 9.7 L (11.2-15.7) g/dL Hct 33.5 L (34.1-44.9) % MCV 81.7 (79.4-94.8) fL MCH 23.7 L (25.6-32.2) pg MCHC 29.0 L (32.2-35.5) g/dL RDW 19.9 H (11.7-14.4) % Plt Count 312 (182-369) x10^3/uL MPV 9.7 (9.4-12.3) fL Gran % 79.4 H (34.0-71.1) % Immature Gran % (Auto) 0.5 H (0.001-0.429) % Nucleat RBC Rel Count 0.0 (0.00-0.2) % Eos # (Auto) 0.18 (0.04-0.36) x10^3/uL Immature Gran # (Auto) 0.04 H (0.001-0.031) x10^3u/L Absolute Lymphs (auto) 0.98 L (1.18-3.74) x10^3/uL Absolute Monos (auto) 0.42 (0.24-0.86) x10^3/uL Absolute Nucleated RBC 0.00 (0.00-0.012) x10^3u/L Lymphocytes % 12.1 L (19.3-51.7) % Monocytes % 5.2 (4.7-12.5) % Eosinophils % 2.2 (0.7-5.8) % Basophils % 0.6 (0.1-1.2) % Absolute Granulocytes 6.44 H (1.56-6.13) x10^3/uL Basophils # 0.05 (0.01-0.08) x10^3/uL Sodium 140 (135-145) mmol/L Potassium 3.5 (3.5-5.1) mmol/L Chloride 106 (98-107) mmol/L Carbon Dioxide 25 (22-30) mmol/L Anion Gap 12.0 (5-15) MEQ/L BUN 14 (7-17) mg/dL Creatinine 0.66 (0.52-1.04) mg/dL Estimated GFR 90.9 ML/MIN Glucose 126 H (74-106) mg/dL Calcium 9.1 (8.4-10.2) mg/dL Magnesium 1.9 (1.6-2.3) mg/dL Troponin I 0.044 H* (0.000-0.033) ng/mL - Progress Progress: improved, pain not gone completely, re-examined Progress Note: 04/25/24 03:28 My medical decision making and the assignment of moderate complexity to this patient's medical issue today is based on review of the patient's past medical history, review of the patient's medication list, reviewed patient drug allergy list, history present as and physical findings on examination. The workup in this patient includes placement of intravenous line, infusion of orphenadrine, Solu-Medrol and oral Percocet 5/325. We are not ordering troponin, CBC, BMP, magnesium level, twelve-lead EKG and we will x-ray the patient's left shoulder. Differential diagnosis includes but not limited to arrhythmia, electrolyte abnormality, myocardial infarction, muscle skeletal pain, left shoulder fracture, left shoulder dislocation 04/25/24 05:10 I interpreted the patient's laboratory data results. The troponin is pending the remainder of the laboratory data results are negative for any acute, emergent medical issue. I interpreted the patient's preliminary left shoulder x-ray report. There are no acute fractures or dislocations present. 04/25/24 05:18 I interpreted the patient's troponin level. It is mildly elevated. Looking back at the patient's troponin levels, they have been mildly elevated multiple times in the past. We will await the repeat 4-hour troponin level. We will also repeat the twelve-lead EKG 04/25/24 06:48 I interpreted the patient's repeat twelve-lead EKG that was performed on 04/25/2024 at 519. 04/25/24 06:[address] Anderson at shift change. He will follow-up on the repeat troponin level and make final disposition. Counseled pt/family regarding: lab results, diagnosis, need for follow-up, rad results Medical Desision Making - Independent Historian Additional History obtained from: Rental Representative/EMT - Diagnostic Testing Diagnostic test were ordered, analyzed, and reviewed by me: Yes Radiological Interpretation: Interpreted by me - Departure Clinical Impression: Left shoulder pain Condition: Stable Critical Care Time: No Referrals: WANDER MONTOYA [Primary Care Provider] - Follow up/PCP as directed Additional Instructions: Continue your medications as prescribed. Call your primary care provider on 04/27/2024, to make arrangements for a follow-up appointment and to be seen in the next 3 to 5 days. Prescriptions: Prednisone 10 mg [Deltasone 10 mg] 10 mg PO TID #12 tablet
[2024-04-25 03:07] VITALS: TEMP 98
[2024-04-25] MEDS ORDERED: solu-MEDROL ONE (03:43)
[2024-04-25] MEDS ORDERED: Sterile H2O 10 ml IJ ONE (03:43)
[2024-04-25] MEDS ORDERED: PERCOCET TABLET 5/325MG ONE (03:43)
[2024-04-25] MEDS ORDERED: Norflex 60 MG/2 ML ONE (03:43)
[2024-04-25] MEDS: Norflex 60 MG/2 ML IV ONE (03:44)
[2024-04-25] MEDS: solu-MEDROL 125 MG, Sterile H2O 10 ml 2 ML IV ONE (03:44)
[2024-04-25] MEDS: PERCOCET TABLET 5/325MG PO STA ×2 (03:44→08:15)
[2024-04-25 04:04] LABS: Calcium 9.1 mg/dL (8.4-10.2); Creatinine 1 0.66 mg/dL (0.52-1.04); EST GLOMERULAR FILTRATION RATE 90.9 ML/MIN; MAGNESIUM 1.9 mg/dL (1.6-2.3); Potassium 3.5 mmol/L (3.5-5.1)
[2024-04-25 04:37] LABS: Absolute Neutrophil Ct (ANC) 6.44 x10^3/uL (1.56-6.13); BASOPHIL % 0.6 % (0.1-1.2); Basophil (Absolute #) 0.05 x10^3/uL (0.01-0.08); Eosinophil % 2.2 % (0.7-5.8); Eosinophil (Absolute #) 0.18 x10^3/uL (0.04-0.36); Hematocrit 33.5 % (34.1-44.9); Hemoglobin 9.7 g/dL (11.2-15.7); IMMATURE GRAN # 0.04 x10^3u/L (0.001-0.031); IMMATURE GRAN % 0.5 % (0.001-0.429); Lymphocyte (Absolute #) 0.98 x10^3/uL (1.18-3.74); Lymphocytes % 12.1 % (19.3-51.7); Mean Cell Volume 81.7 fL (79.4-94.8); Mean Corpuscular Hemoglobin 23.7 pg (25.6-32.2); Mean Platelet Volume 9.7 fL (9.4-12.3); Monocyte (Absolute #) 0.42 x10^3/uL (0.24-0.86); Monocytes % 5.2 % (4.7-12.5); Neutrophil % 79.4 % (34.0-71.1); Platelet Count 312 x10^3/uL (182-369); Red Cell Distribution Width 19.9 % (11.7-14.4); White Blood Count 8.1 x10^3/uL (3.98-10.04)
--- NOTE | 2024-04-25 05:48 | XRAY ---
Indication: Pain. No known injury. Comparison: None 3 view left shoulder demonstrates osteopenia, moderate glenohumeral/acromioclavicular degenerative changes, left lung base infiltrate/atelectasis, epidural leads terminating T7, and a left Port-A-Cath. No other bony, articular, or soft tissue abnormalities.
[2024-04-25 06:47] VITALS: O2SAT 95
[2024-04-25 08:25] VITALS: BP 137/79; PULSE 102; RESP 14
== END 2024-04-25 08:27 | disposition home or self-care (01) ==
LOC: ED 02:46
DX: M25.512 Pain in left shoulder (principal); R79.89 Other specified abnormal findings of blood chemistry; E78.5 Hyperlipidemia, unspecified; I10 Essential (primary) hypertension; D64.9 Anemia, unspecified; E11.9 Type 2 diabetes mellitus without complications; Z79.899 Other long term (current) drug therapy
CPT/HCPCS: 36000; 36415; 73030; 80048; 83735; 84484; 85025; 93005; 93041; 96374; 96375; 99284; J1642; J2360; J2919; A9270-GY

== ENCOUNTER 2024-04-30 08:57 | Observation (INO) | payer MEDICARE ==
--- NOTE | 2024-04-30 09:03 | ERPHSYRPT ---
- History of Present Illness Time Seen by Provider: 04/30/24 09:01 Source: patient, EMS, old records Exam Limitations: no limitations Physician History: This is an obese 74-year-old white female patient of Dr. Montoya (PCP), Dr. Hardin (cardiovascular), Dr. Galindo (infectious disease), Dr. 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 Patient typically wears 3 L of oxygen via nasal cannula at nighttime. However, last few days she has been using it more frequently. Patient states that yesterday she wore her oxygen all day long. She denies chest pain. She denies cough. She has not had a fever. Patient states that she was told that she did have a history of atrial fibrillation and also told that she does not have a history of atrial fibrillation. She is not on any anticoagulation therapy. Patient is not on any diuretics. Patient does have a history of anxiety, gastroesophageal reflux disease, chronic anemia, CHF, diabetes, rheumatoid arthritis, COPD, hypertension and hyperlipidemia. I did review the visit in our emergency department dated 04/25/2024. At that time she was having complaints of left arm pain and no shortness of breath. Patient's hemoglobin was 9.7 on that visit. She had a twelve-lead EKG performed on that day which showed atrial fibrillation and a heart rate of 97 bpm. She had 2 troponin levels. The first is 0.044 and the second is 0.043. In review of old troponin levels, the patient's troponin levels have run anywhere from normal to 0.06. Typically it runs high normal (0.034) to the high 0.06 range. Patient has not been diagnosed with coronary artery disease per her report Timing/Duration: day(s) (Intermittently short of breath over the last few days), worse Activities at Onset: none Severity of Dyspnea-Max: moderate Severity of Dyspnea-Current: mild (To moderate) Possible Cause: frequent episodes, chronic episodes Modifying Factors: Worsens With: coughing Associated Symptoms: intermittent, No cough, No chest pain/discomfort, No weakness Allergies/Adverse Reactions: bee venom protein (honey bee) Allergy (Severe, Verified 04/25/24 03:01) Anaphylactic Reaction venom-wasp Allergy (Verified 04/25/24 03:01) Anaphylactic Reaction acetaminophen [From Tylenol-Codeine] Adverse Reaction (Mild, Verified 04/25/24 03:01) Nausea codeine [From Tylenol-Codeine] Adverse Reaction (Mild, Verified 04/25/24 03:01) Nausea bandaids Adverse Reaction (Mild, Uncoded 04/25/24 03:01) redness/swelling Home Medications: Metoprolol Succinate 100 mg [Toprol Xl 100 MG] 100 mg PO DAILY 11/23/20 [History] Amitriptyline HCl 25 mg [Amitriptyline 25 mg Tablet] 25 mg PO HS 03/09/22 [History] Gabapentin 300 mg PO TID 03/09/22 [History] Dupilumab [Dupixent Pen] 300 mg SQ CLARIFY 12/05/22 [History] Cyanocobalamin (Vitamin B-12) [Vitamin B-12] 500 mcg PO DAILY 09/22/23 [History] Sucralfate 1 gm [Carafate 1 GM] 1 g PO TID 09/22/23 [History] Folic Acid 1 mg [Folate 1 mg] 1 mg PO DAILY 01/23/24 [History] Lactobacillus Acidophilus [Probiotic] 1 cap PO DAILY 01/23/24 [History] Cholecalciferol (Vitamin D3) [Vitamin D3] 2,000 iu PO DAILY 02/16/24 [History] Famotidine 20 mg PO BID 02/16/24 [History] Potassium Chloride 20 meq PO BID 02/16/24 [History] Furosemide [Lasix] 40 mg PO DAILY 04/30/24 [History] Hx Tetanus, Diphtheria Vaccination/Date Given: Yes Hx Influenza Vaccination/Date Given: Yes Hx Pneumococcal Vaccination/Date Given: Yes Travel Risk - International Travel Have you traveled outside of the country in past 3 weeks: No - Emerging Infectious Disease Are you exhibiting symptoms associated with any current EIDs: Yes Symptoms: Shortness of Breath Comment: pt just finished a round of antibiotics for c-diff - Review of Systems Constitutional: Weakness Eyes: No Symptoms Respiratory: Dyspnea, Dyspnea on Exertion (VALERIO) Cardiac: No Symptoms Abdominal/Gastrointestinal: No Symptoms Genitourinary Symptoms: No Symptoms Musculoskeletal: No Symptoms Skin: No Symptoms Neurological: No Symptoms Psychological: No Symptoms Endocrine: No Symptoms Hematologic/Lymphatic: No Symptoms Immunological/Allergic: No Symptoms All Other Systems: Reviewed and Negative - Past Medical History Pertinent Past Medical History: Yes Neurological History: No Pertinent History ENT History: No Pertinent History Cardiac History: High Cholesterol, Hypertension Respiratory History: COPD Endocrine Medical History: No Pertinent History Musculoskeletal History: Rheumatoid Arthritis GI Medical History: Colorectal Cancer, Diverticulosis, GERD, Polyps History: No Pertinent History Psycho-Social History: Anxiety Female Reproductive Disorders: Breast Cancer Other Medical History: C-Diff (Dr. Epstein), iron deficiency anemia (Dr. Rivera), eczema, bowel obstruction, chronic sciatic nerve pain - Past Surgical History Past Surgical History: Yes Neuro Surgical History: No Pertinent History Cardiac: No Pertinent History Respiratory: No Pertinent History Gastrointestinal: Colon Resection, Hernia Repair, Other Genitourinary: No Pertinent History Musculoskeletal: Joint Replacement, Orthopedic Surgery Female Surgical History: Tubal Ligation, Mastectomy Other Surgical History: Bjorn knee replacement, bariatric surgery, breast cancer with partial mastectomy left, lumpectomy right breast, port placed x 2, insertion of a sciatic nerve stimulator Significant Family History: heart disease, cancer - Social History Smoking Status: Former smoker How long have you smoked: 40 yrs Exposure to second hand smoke: Yes (occassionally) Drug Use: none Patient Lives Alone: Yes - Social Determinants of Health Will the patient participate in the screening: Yes Do you worry about a steady place to live?: No In the past 12 months,have you had to go without utilities?: No Transportation Issues: No Has anyone in your support network made you feel unsafe?: No Have you or anyone in your house had to go without enough: No - Nursing Vital Signs Nursing Vital Signs: Initial Vital Signs Temperature 97.5 F 04/30/24 08:59 Pulse Rate 118 H 04/30/24 08:59 Respiratory Rate 22 04/30/24 08:59 Blood Pressure 144/98 04/30/24 08:59 O2 Sat by Pulse Oximetry 98 04/30/24 08:59 Pain Scale Pain Intensity 0 - Physical Exam General Appearance: mild distress, alert, anxiety, obese Eye Exam: PERRL/EOMI, eyes nml inspection Ears, Nose, Throat Exam: hearing grossly normal, normal ENT inspection, normal pharynx Neck Exam: normal inspection, non-tender, supple, full range of motion Respiratory Exam: normal breath sounds, lungs clear, airway intact, No chest tenderness, No respiratory distress Cardiovascular/Chest Exam: tachycardia, irregular Abdominal/Gastrointestinal Exam: soft, normal bowel sounds, No tenderness Rectal Exam: not done Extremity Exam: non-tender, normal range of motion, normal inspection, normal capillary refill, no calf tenderness, no pedal edema, pelvis stable Neurologic Exam: alert, oriented x 3, cooperative, features reporter II-XII nml as tested, nml cerebellar function, nml station & gait, sensation nml Skin Exam: normal color, warm, dry Lymphatic Exam: No adenopathy SpO2 Interpretation: normal O2 Delivery: Room Air - Course Nursing assessment & vital signs reviewed: Yes EKG Interpreted by Me: RATE (94), A-fib, Other (No acute ischemia on today's twelve-lead EKG. There is PVCs present. QTc is 418. No significant change from comparison twelve-lead EKG) Ordered Tests: Active Orders 24 hr Category Date Time Status Instrumentation Controls Engineer STAT Care 04/30/24 09:09 Active EKG-ER Only STAT Care 04/30/24 09:08 Active IV Insertion STAT Care 04/30/24 09:08 Active Oxygen-ED Only Nasal Cannula 3 lpm Care 04/30/24 09:08 Active Pulse Oximetry (ED) STAT Care 04/30/24 09:08 Active Telemetry q4h Care 04/30/24 11:01 Active CHEST WITH CONTRAST [CT] Stat Exams 04/30/24 13:25 Completed BLOOD CULTURE Stat Lab 04/30/24 09:46 Received CBC W DIFF Stat Lab 04/30/24 09:46 Completed CMP Stat Lab 04/30/24 09:15 Completed D-DIMER QUANTITATIVE Stat Lab 04/30/24 09:46 Completed MAGNESIUM Stat Lab 04/30/24 09:15 Completed NT PRO BNPII Stat Lab 04/30/24 09:15 Completed PROTIME WITH INR Stat Lab 04/30/24 09:46 Completed TROPONIN Q4H Lab 04/30/24 09:15 Completed TROPONIN Q4H Lab 04/30/24 17:15 Ordered Medication Summary Generic Name Dose Route Start Last Admin Trade Name Freq PRN Reason Stop Dose Admin Sodium Chloride 1,000 mls @ 100 mls/hr 04/30/24 11:15 04/30/24 11:13 Sodium Chloride 0.9% 1000 Ml IV 05/30/24 11:14 100 mls/hr .Q10H SALVADOR Administration Discontinued Medications Generic Name Dose Route Start Last Admin Trade Name Cassius PRN Reason Stop Dose Admin Furosemide 40 mg 04/30/24 13:48 04/30/24 14:17 Furosemide 40 Mg/4 Ml Vial IV 04/30/24 13:49 40 mg STAT ONE Administration Furosemide Confirm 04/30/24 14:10 Furosemide 40 Mg/4 Ml Vial Administered 04/30/24 14:11 Dose 40 mg .ROUTE .STK-MED ONE Potassium Chloride 20 meq in 100 mls @ 50 mls/hr 04/30/24 11:01 04/30/24 11:14 Potassium Chloride 20 Meq In Water 100ml IV 04/30/24 13:00 50 mls/hr STAT ONE Administration Potassium Chloride Confirm 04/30/24 11:12 Potassium Chloride 20 Meq In Water 100ml Administered 04/30/24 11:13 Dose 100 mls @ ud IV .STK-MED ONE Potassium Chloride 20 meq 04/30/24 11:01 04/30/24 11:13 Potassium Chloride Tab 10 Meq Tab PO 04/30/24 11:02 20 meq STAT ONE Administration Potassium Chloride Confirm 04/30/24 11:12 Potassium Chloride Tab 10 Meq Tab Administered 04/30/24 11:13 Dose 20 meq .ROUTE .STK-MED ONE Lab/Rad Data: Laboratory Result Diagrams 04/30/24 09:46 04/30/24 09:15 Laboratory Results 04/30/24 04/30/24 04/30/24 Range/Units 12:42 09:46 09:46 WBC 8.5 (3.98-10.04) x10^3/uL RBC 3.87 L (3.93-5.22) x10^6/uL Hgb 8.9 L (11.2-15.7) g/dL Hct 29.8 L (34.1-44.9) % MCV 77.0 L (79.4-94.8) fL MCH 23.0 L (25.6-32.2) pg MCHC 29.9 L (32.2-35.5) g/dL RDW 19.5 H (11.7-14.4) % Plt Count 308 (182-369) x10^3/uL MPV 9.4 (9.4-12.3) fL Gran % 71.6 H (34.0-71.1) % Immature Gran % (Auto) 0.2 (0.001-0.429) % Nucleat RBC Rel Count 0.5 H (0.00-0.2) % Eos # (Auto) 0.05 (0.04-0.36) x10^3/uL Immature Gran # (Auto) 0.02 (0.001-0.031) x10^3u/L Absolute Lymphs (auto) 1.65 (1.18-3.74) x10^3/uL Absolute Monos (auto) 0.68 (0.24-0.86) x10^3/uL Absolute Nucleated RBC 0.04 H (0.00-0.012) x10^3u/L Lymphocytes % 19.4 (19.3-51.7) % Monocytes % 8.0 (4.7-12.5) % Eosinophils % 0.6 L (0.7-5.8) % Basophils % 0.2 (0.1-1.2) % Absolute Granulocytes 6.09 (1.56-6.13) x10^3/uL Basophils # 0.02 (0.01-0.08) x10^3/uL PT 13.0 H (9.4-12.5) SECONDS INR 1.10 (0.8-3.0) D-Dimer (0.0-0.50) mg/L Sodium Sodium Direct (138-146) mmol/L Potassium (3.5-4.9) mmol/L Chloride (98-109) mmol/L Carbon Dioxide (24-29) mmol/L Anion Gap BUN (7-17) mg/dL Venous BUN (8-26) mg/dL Creatinine (0.6-1.3) mg/dL Estimated GFR Glucose (70-105) mg/dL Calcium Ionized Calcium (1.12-1.32) mmol/L Magnesium Total Bilirubin AST ALT Alkaline Phosphatase Troponin 0.01 (0.00-0.03) ng/mL Troponin I NT-Pro-B Natriuret Pep Serum Total Protein Albumin Influenza Type A Ag (NEGATIVE) Influenza Type B Ag (NEGATIVE) RSV (PCR) (NEGATIVE) SARS-CoV-2 (PCR) (NEGATIVE) 04/30/24 04/30/24 Range/Units 09:22 09:15 WBC (3.98-10.04) x10^3/uL RBC (3.93-5.22) x10^6/uL Hgb (11.2-15.7) g/dL Hct (34.1-44.9) % MCV (79.4-94.8) fL MCH (25.6-32.2) pg MCHC (32.2-35.5) g/dL RDW (11.7-14.4) % Plt Count (182-369) x10^3/uL MPV (9.4-12.3) fL Gran % (34.0-71.1) % Immature Gran % (Auto) (0.001-0.429) % Nucleat RBC Rel Count (0.00-0.2) % Eos # (Auto) (0.04-0.36) x10^3/uL Immature Gran # (Auto) (0.001-0.031) x10^3u/L Absolute Lymphs (auto) (1.18-3.74) x10^3/uL Absolute Monos (auto) (0.24-0.86) x10^3/uL Absolute Nucleated RBC (0.00-0.012) x10^3u/L Lymphocytes % (19.3-51.7) % Monocytes % (4.7-12.5) % Eosinophils % (0.7-5.8) % Basophils % (0.1-1.2) % Absolute Granulocytes (1.56-6.13) x10^3/uL Basophils # (0.01-0.08) x10^3/uL PT (9.4-12.5) SECONDS INR (0.8-3.0) D-Dimer (0.0-0.50) mg/L Sodium Not Reportable Sodium Direct 140 (138-146) mmol/L Potassium 2.9 L* (3.5-4.9) mmol/L Chloride 99 (98-109) mmol/L Carbon Dioxide 26 (24-29) mmol/L Anion Gap Not Reportable BUN (7-17) mg/dL Venous BUN 18 (8-26) mg/dL Creatinine 0.6 (0.6-1.3) mg/dL Estimated GFR Not Reportable Glucose 109 H (70-105) mg/dL Calcium Not Reportable Ionized Calcium 1.17 (1.12-1.32) mmol/L Magnesium Not Reportable Total Bilirubin Not Reportable AST Not Reportable ALT Not Reportable Alkaline Phosphatase Not Reportable Troponin 0.03 (0.00-0.03) ng/mL Troponin I Not Reportable NT-Pro-B Natriuret Pep Not Reportable Serum Total Protein Not Reportable Albumin Not Reportable Influenza Type A Ag NEGATIVE (NEGATIVE) Influenza Type B Ag NEGATIVE (NEGATIVE) RSV (PCR) NEGATIVE (NEGATIVE) SARS-CoV-2 (PCR) NEGATIVE (NEGATIVE) - Progress Progress: improved, re-examined Air Movement: good Progress Note: 04/30/24 09:15 My medical decision making and the assignment of moderate complexity to this patient's medical issue today is based on review of the patient's past medical h istory, review of patient medication list, reviewed patient drug allergy list, review of the patient's recent emergency department stay, review of the history present illness and physical findings on examination. The workup in this patient includes placement of intravenous line, respiratory therapy evaluation, twelve-lead EKG, CBC, CMP, magnesium level, viral swabs, BNP, troponin level and D-dimer level. Differential diagnosis includes but is not limited to COPD exacerbation, CHF exacerbation, myocardial infarction, arrhythmia, pneumonia 04/30/24 16:15 I interpreted the patient's laboratory data results. Based on the laboratory data results, the patient does have an elevated D-dimer level as well as an elevated BNP level. These test were sent out to [facility] and they returned elevated. The remainder of the laboratory tests were interpreted by me. The patient has chronic anemia. In the last several months her hemoglobin was running anywhere between 7.1 and 9.7. Today, it is 8.9. 04/30/24 16:[address] scan of the chest with contrast was interpreted by the radiologist and I reviewed the impression. The impression states negative for pulmonary embolus. New cardiomegaly with bilateral, moderate pleural effusions right side rater than left. 04/30/24 16:46 I spoke with telehospitalist Dr. Ayoub and I reviewed the patient history, presenting complaint, physical findings on examination and the workup results. We will place this patient in telemetry observation and diuresis this patient and repeat labs in the morning. He agrees with this plan Blood Culture(s) Obtained: Yes Antibiotics given: No Discussed with : Fawn Counseled pt/family regarding: lab results, diagnosis, rad results Medical Desision Making - Independent Historian Additional History obtained from: Mess Attendant/EMT - Discussion of managment Care discussed with:: hospitalist Reviewed:: Test results, Need for additional workup Agreed on:: place in obs - Diagnostic Testing Diagnostic test were ordered, analyzed, and reviewed by me: Yes Radiological Interpretation: Reviewed by me, Teleradiologist Report - Risk of complications The pt has a high risk of morbidity or mortality based on: Decision regarding hospitilization or escalation of hosp level of care - Departure Departure Disposition: Observation Clinical Impression: CHF exacerbation, Hypokalemia, Bilateral pleural effusion, Chronic anemia, Atrial fibrillation Condition: Fair Critical Care Time: No Referrals: WANDER MONTOYA [Primary Care Provider] - Follow up/PCP as directed Instructions: Heart Failure
[2024-04-30 10:10] LABS: Absolute Neutrophil Ct (ANC) 6.09 x10^3/uL (1.56-6.13); BASOPHIL % 0.2 % (0.1-1.2); Basophil (Absolute #) 0.02 x10^3/uL (0.01-0.08); Eosinophil % 0.6 % (0.7-5.8); Eosinophil (Absolute #) 0.05 x10^3/uL (0.04-0.36); Hematocrit 29.8 % (34.1-44.9); Hemoglobin 8.9 g/dL (11.2-15.7); IMMATURE GRAN # 0.02 x10^3u/L (0.001-0.031); IMMATURE GRAN % 0.2 % (0.001-0.429); Lymphocyte (Absolute #) 1.65 x10^3/uL (1.18-3.74); Lymphocytes % 19.4 % (19.3-51.7); Mean Corpuscular Hgb Concent. 29.9 g/dL (32.2-35.5); Mean Platelet Volume 9.4 fL (9.4-12.3); Monocyte (Absolute #) 0.68 x10^3/uL (0.24-0.86); NUCLEATED RBC # 0.04 x10^3u/L (0.00-0.012); NUCLEATED RBC % 0.5 % (0.00-0.2); Neutrophil % 71.6 % (34.0-71.1); Platelet Count 308 x10^3/uL (182-369); Red Blood Count 3.87 x10^6/uL (3.93-5.22); Red Cell Distribution Width 19.5 % (11.7-14.4); White Blood Count 8.5 x10^3/uL (3.98-10.04)
[2024-04-30 10:31] LABS: INFLUENZA A NEGATIVE (NEGATIVE); INFLUENZA B NEGATIVE (NEGATIVE); RESPIRATORY SYNCTIAL VIRUS NEGATIVE (NEGATIVE); SARS-CoV-2 Xpert Express NEGATIVE (NEGATIVE)
[2024-04-30 10:51] LABS: ISTAT BUN 18 mg/dL (8-26); ISTAT CL 99 mmol/L (98-109); ISTAT CO2 26 mmol/L (24-29); ISTAT CREA 0.6 mg/dL (0.6-1.3); ISTAT GLUC 109 mg/dL (70-105); ISTAT NA 140 mmol/L (138-146); ISTAT iCA 1.17 mmol/L (1.12-1.32)
[2024-04-30 10:53] LABS: ISTAT K 2.9 mmol/L (3.5-4.9)
[2024-04-30] MEDS ORDERED: POTASSIUM CHLORIDE 20 mEq IN WATER 100ML 100 ML IV ONE (11:12)
[2024-04-30] MEDS ORDERED: Sodium Chloride 0.9% 1000 ML 1,000 ML ONE (11:12)
[2024-04-30] MEDS ORDERED: Klor Con ONE ×2 (11:12→20:52)
[2024-04-30] MEDS: Sodium Chloride 0.9% 1000 ML 1,000 ML IV SCH (11:13)
[2024-04-30] MEDS: Klor Con PO ONE ×2 (11:13→20:59)
[2024-04-30 11:14] LABS: ISTAT cTNI 0.03 ng/mL (0.00-0.03)
[2024-04-30] MEDS: POTASSIUM CHLORIDE 20 mEq IN WATER 100ML 20 MEQ/100 ML BAG IV ONE (11:14)
[2024-04-30 13:16] LABS: INR 1.1 (0.8-3.0)
[2024-04-30] MEDS ORDERED: Lasix 40 MG/4 ML ONE (14:10)
[2024-04-30] MEDS: Lasix 40 MG/4 ML IV ONE (14:17)
--- NOTE | 2024-04-30 16:23 | XRAY ---
Indication: Short of breath. Elevated d-dimer. COPD. Colon and breast cancer. Multiple contiguous axial images obtained through the chest using 80 cc Isovue 370 contrast and PE protocol. Comparison: February 13 and February 28, 2024 Good opacification pulmonary arteries to include the lobar and segmental branches. Again no pulmonary embolus. Heart is now enlarged again with left Port-A-Cath. Aorta remains mildly arteriosclerotic without aneurysm/dissection. Stable small mediastinal and right hilar calcified nodes. No pathologic mediastinal/hilar lymphadenopathy. Lungs again demonstrates pulmonary emphysema. New moderate bilateral effusions, right greater than left with minimal bibasilar compressive atelectasis. Bony thorax intact again with osteopenia, mild degenerative changes throughout spine, old posterior right 7 rib fracture, and epidural leads terminating T6-T7. Limited upper abdomen again demonstrates gastric bypass surgery and fatty liver. Impression: 1. Continued negative pulmonary embolus. 2. New cardiomegaly and bilateral effusions favoring cardiac decompensation/CHF. 3. Again chronic findings including pulmonary emphysema, chronic bony findings, fatty liver, and old granulomatous disease.
--- NOTE | 2024-04-30 17:38 | PCM.HP ---
History of Present Illness - Chief Complaint Chief Complaint: CHF exacerbation, hypokalemia Date: 04/30/24 History of Present Illness: is a 74 year old female with PMHX of morbid obesity, anxiety, A-fib (not on anticoagualtion, taken off meds by oncology), gastroesophageal reflux disease, chronic anemia, CHF, CAD, diabetes, rheumatoid arthritis, COPD, hypertension, and hyperlipidemia. She has had breast and colon cancer and currenlty in remission from colon CA. She is a patient of Dr. Lechuga (PCP), Dr. Hardin (cardiovascular), Dr. Galindo (infectious disease), Dr. Rivera (hematology/ oncology). She presented to the emergency department by the [facility] secondary to worsening shortness of breath over 1 week and worsened last night. Patient typically wears 3 L of oxygen via nasal cannula at nighttime. However, last few days she has been using it more frequently. Patient states that yesterday she wore her oxygen all day long. She had difficulty laying flat to sleep and had increased SOB. She also has had increased SOB walking. She denies chest pain, cough, fever. She was given IV fluids, lasix, and potassium replacement in the ER. K+ on admission was 2.9. Will recheck labs. OCntinue lasix BID. IV fluids stopped. She is currently on 3lNC and BL is 3lNC at [facility]. CT chest shows pleural effusions and cardiomegaly. Echo ordered. Iron panel ordered for anemia. - Review of Systems Constitutional: No Fever, No Chills Eyes: No Symptoms Ears, Nose, & Throat: No Symptoms Respiratory: Orthopnea, Short Of Breath, No Cough Cardiac: No Chest Pain, No Edema, No Syncope Abdominal/Gastrointestinal: No Abdominal Pain, No Nausea, No Vomiting, No Diarrhea Genitourinary Symptoms: No Dysuria Musculoskeletal: No Back Pain, No Neck Pain Skin: No Rash Neurological: No Dizziness, No Focal Weakness, No Sensory Changes Psychological: No Symptoms Endocrine: No Symptoms Hematologic/Lymphatic: No Symptoms Immunological/Allergic: No Symptoms Medications & Allergies Home Medications: Home Medication List Metoprolol Succinate 100 mg [Toprol Xl 100 MG] 100 mg PO DAILY 11/23/20 [History Confirmed 04/30/24] Metoclopramide HCl 10 mg [Reglan 10 MG] 10 mg PO TIDWMEALS #30 tablet 03/19/21 [Rx Confirmed 04/30/24] PANTOPRAZOLE 40 mg Tablet [Protonix 40MG Tablet] 40 mg PO DAILY #30 tab 03/24/21 [Rx Confirmed 04/30/24] Amitriptyline HCl 25 mg [Amitriptyline 25 mg Tablet] 25 mg PO TID 03/09/22 [History Confirmed 04/30/24] Gabapentin 300 mg PO TID 03/09/22 [History Confirmed 04/30/24] Dupilumab [Dupixent Pen] 300 mg SQ CLARIFY 12/05/22 [History Confirmed 04/30/24] Cyanocobalamin (Vitamin B-12) [Vitamin B-12] 500 mcg PO DAILY 09/22/23 [History Confirmed 04/30/24] Sucralfate 1 gm [Carafate 1 GM] 1 g PO TID 09/22/23 [History Confirmed 04/30/24] Folic Acid 1 mg [Folate 1 mg] 1 mg PO DAILY 01/23/24 [History Confirmed 04/30/24] Lactobacillus Acidophilus [Probiotic] 1 cap PO DAILY 01/23/24 [History Confirmed 04/30/24] Cholecalciferol (Vitamin D3) [Vitamin D3] 2,000 iu PO DAILY 02/16/24 [History Confirmed 04/30/24] Famotidine 20 mg PO BID 02/16/24 [History Confirmed 04/30/24] Potassium Chloride 20 meq PO QID 02/16/24 [History Confirmed 04/30/24] Aspirin/Acetaminophen/Caffeine [Excedrin Migraine Caplet] 2 each PO BID PRN 04/30/24 [History Confirmed 04/30/24] Fluticasone Propion/Salmeterol [Advair 100-50 Diskus] 1 puff IH BID 04/30/24 [History Confirmed 04/30/24] Furosemide [Lasix] 40 mg PO DAILY 04/30/24 [History Confirmed 04/30/24] Allergies/Adverse Reactions: Allergies Allergy/AdvReac Type Severity Reaction Status Date / Time bee venom protein (honey bee) Allergy Severe Anaphylactic Verified 04/25/24 03:01 Reaction venom-wasp Allergy Anaphylactic Verified 04/25/24 03:01 Reaction acetaminophen AdvReac Mild Nausea Verified 04/25/24 03:01 [From Tylenol-Codeine] codeine AdvReac Mild Nausea Verified 04/25/24 03:01 [From Tylenol-Codeine] bandaids AdvReac Mild redness/swe Uncoded 04/25/24 03:01 lling - Past Medical History Past Medical History: Yes Neurological History: No Pertinent History ENT History: No Pertinent History Cardiac History: High Cholesterol, Hypertension Respiratory History: COPD Endocrine Medical History: No Pertinent History Musculoskelatal History: Rheumatoid Arthritis GI Medical History: Colorectal Cancer, Diverticulosis, GERD, Polyps History: No Pertinent History Pyscho-Social History: Anxiety Reproductive Disorders: Breast Cancer Comment: C-Diff (Dr. Epstein), iron deficiency anemia (Dr. Rivera), eczema, bowel obstruction, chronic sciatic nerve pain - Past Surgical History Past Surgical History: Yes Neuro Surgical History: No Pertinent History Cardiac History: No Pertinent History Respiratory Surgery: No Pertinent History GI Surgical History: Colon Resection, Hernia Repair, Other Genitourinary Surgical Hx: No Pertinent History Musculskeletal Surgical Hx: Joint Replacement, Orthopedic Surgery Female Surgical History: Tubal Ligation, Mastectomy Other Surgical History: Bjorn knee replacement, bariatric surgery, breast cancer with partial mastectomy left, lumpectomy right breast, port placed x 2, insertion of a sciatic nerve stimulator Significant Family History: heart disease, cancer - Social History Smoking Status: Former smoker How long have you smoked: 40 yrs Exposure to second hand smoke: Yes (occassionally) Alcohol: Occasionally Drug Use: none - Social Determinants of Health Will the patient participate in the screening: Yes Do you worry about a steady place to live?: No Do you have any problems with any of the following?: No known problems In the past 12 months,have you had to go without utilities?: No Have you or anyone in your house had to go without enough: No Transportation Issues: No Has anyone in your support network made you feel unsafe?: No Does the patient want assistance with any of the above?: No - Physical Exam Vital Signs: Vital Signs - 24 hr Temp Pulse Resp BP BP Pulse Ox 04/30/24 16:55 109 H 20 114/82 99 04/30/24 16:15 113 H 22 114/82 98 04/30/24 15:46 117 H 21 125/73 97 04/30/24 15:31 115 H 23 97 04/30/24 15:24 108/86 04/30/24 15:22 100 04/30/24 14:31 109/84 04/30/24 14:15 97 H 21 134/91 97 04/30/24 14:08 99 H 22 117/65 97 04/30/24 14:01 96 H 26 H 113/87 97 04/30/24 13:45 101 H 25 H 146/88 99 04/30/24 13:30 94 H 16 128/84 97 04/30/24 13:16 96 H 18 127/79 97 04/30/24 13:10 100 H 21 137/81 97 04/30/24 13:08 115 H 15 04/30/24 12:46 102/75 04/30/24 12:30 105 H 25 H 130/70 97 04/30/24 12:16 108 H 18 122/81 97 04/30/24 12:01 102 H 24 114/64 04/30/24 11:46 96 H 21 149/92 97 04/30/24 11:31 103 H 28 H 120/67 98 04/30/24 11:16 106 H 20 98/67 98 04/30/24 11:02 92 H 13 131/59 97 04/30/24 10:45 109 H 26 H 132/94 04/30/24 10:31 105 H 12 133/83 04/30/24 10:15 96 H 15 131/109 98 04/30/24 10:00 105 H 18 122/93 98 04/30/24 09:31 95 H 7 L 119/75 97 04/30/24 09:30 97 04/30/24 09:16 100 H 11 L 128/99 98 04/30/24 09:03 101 H 17 144/98 97 04/30/24 08:59 97.5 F 118 H 22 144/98 98 General Appearance: no apparent distress, alert, obese Neurologic Exam: alert, oriented x 3, cooperative, normal mood/affect, nml cerebellar function, nml station & gait, sensation nml, No motor deficits Eye Exam: PERRL/EOMI, eyes nml inspection Ears, Nose, Throat Exam: normal ENT inspection, TMs normal, pharynx normal, moist mucous membranes Neck Exam: normal inspection, non-tender, supple, full range of motion Respiratory Exam: crackles/rales (BLLL), No respiratory distress Cardiovascular Exam: regular rate/rhythm, normal heart sounds, normal peripheral pulses, edema (BLLE + 1 pitting) Gastrointestinal/Abdomen Exam: soft, normal bowel sounds, No tenderness, No mass Back Exam: normal inspection, normal range of motion, No CVA tenderness, No vertebral tenderness Extremity Exam: normal inspection, normal range of motion, pelvis stable Skin Exam: normal color, warm, dry, No rash Lymphatic Exam: No adenopathy Results - Labs Lab/Micro Results: Lab Results-Last 24 Hours 04/30/24 04/30/24 04/30/24 Range/Units 09:15 09:22 09:46 WBC 8.5 (3.98-10.04) x10^3/uL RBC 3.87 L (3.93-5.22) x10^6/uL Hgb 8.9 L (11.2-15.7) g/dL Hct 29.8 L (34.1-44.9) % MCV 77.0 L (79.4-94.8) fL MCH 23.0 L (25.6-32.2) pg MCHC 29.9 L (32.2-35.5) g/dL RDW 19.5 H (11.7-14.4) % Plt Count 308 (182-369) x10^3/uL MPV 9.4 (9.4-12.3) fL Gran % 71.6 H (34.0-71.1) % Immature Gran % (Auto) 0.2 (0.001-0.429) % Nucleat RBC Rel Count 0.5 H (0.00-0.2) % Eos # (Auto) 0.05 (0.04-0.36) x10^3/uL Immature Gran # (Auto) 0.02 (0.001-0.031) x10^3u/L Absolute Lymphs (auto) 1.65 (1.18-3.74) x10^3/uL Absolute Monos (auto) 0.68 (0.24-0.86) x10^3/uL Absolute Nucleated RBC 0.04 H (0.00-0.012) x10^3u/L Lymphocytes % 19.4 (19.3-51.7) % Monocytes % 8.0 (4.7-12.5) % Eosinophils % 0.6 L (0.7-5.8) % Basophils % 0.2 (0.1-1.2) % Absolute Granulocytes 6.09 (1.56-6.13) x10^3/uL Basophils # 0.02 (0.01-0.08) x10^3/uL PT (9.4-12.5) SECONDS INR (0.8-3.0) D-Dimer (0.0-0.50) mg/L Sodium Not Reportable Sodium Direct 140 (138-146) mmol/L Potassium 2.9 L* (3.5-4.9) mmol/L Chloride 99 (98-109) mmol/L Carbon Dioxide 26 (24-29) mmol/L Anion Gap Not Reportable BUN (7-17) mg/dL Venous BUN 18 (8-26) mg/dL Creatinine 0.6 (0.6-1.3) mg/dL Estimated GFR Not Reportable Glucose 109 H (70-105) mg/dL Calcium Not Reportable Ionized Calcium 1.17 (1.12-1.32) mmol/L Magnesium Not Reportable Total Bilirubin Not Reportable AST Not Reportable ALT Not Reportable Alkaline Phosphatase Not Reportable Troponin 0.03 (0.00-0.03) ng/mL Troponin I Not Reportable NT-Pro-B Natriuret Pep Not Reportable Serum Total Protein Not Reportable Albumin Not Reportable Influenza Type A Ag NEGATIVE (NEGATIVE) Influenza Type B Ag NEGATIVE (NEGATIVE) RSV (PCR) NEGATIVE (NEGATIVE) SARS-CoV-2 (PCR) NEGATIVE (NEGATIVE) 04/30/24 04/30/24 Range/Units 09:46 12:42 WBC (3.98-10.04) x10^3/uL RBC (3.93-5.22) x10^6/uL Hgb (11.2-15.7) g/dL Hct (34.1-44.9) % MCV (79.4-94.8) fL MCH (25.6-32.2) pg MCHC (32.2-35.5) g/dL RDW (11.7-14.4) % Plt Count (182-369) x10^3/uL MPV (9.4-12.3) fL Gran % (34.0-71.1) % Immature Gran % (Auto) (0.001-0.429) % Nucleat RBC Rel Count (0.00-0.2) % Eos # (Auto) (0.04-0.36) x10^3/uL Immature Gran # (Auto) (0.001-0.031) x10^3u/L Absolute Lymphs (auto) (1.18-3.74) x10^3/uL Absolute Monos (auto) (0.24-0.86) x10^3/uL Absolute Nucleated RBC (0.00-0.012) x10^3u/L Lymphocytes % (19.3-51.7) % Monocytes % (4.7-12.5) % Eosinophils % (0.7-5.8) % Basophils % (0.1-1.2) % Absolute Granulocytes (1.56-6.13) x10^3/uL Basophils # (0.01-0.08) x10^3/uL PT 13.0 H (9.4-12.5) SECONDS INR 1.10 (0.8-3.0) D-Dimer (0.0-0.50) mg/L Sodium Sodium Direct (138-146) mmol/L Potassium (3.5-4.9) mmol/L Chloride (98-109) mmol/L Carbon Dioxide (24-29) mmol/L Anion Gap BUN (7-17) mg/dL Venous BUN (8-26) mg/dL Creatinine (0.6-1.3) mg/dL Estimated GFR Glucose (70-105) mg/dL Calcium Ionized Calcium (1.12-1.32) mmol/L Magnesium Total Bilirubin AST ALT Alkaline Phosphatase Troponin 0.01 (0.00-0.03) ng/mL Troponin I NT-Pro-B Natriuret Pep Serum Total Protein Albumin Influenza Type A Ag (NEGATIVE) Influenza Type B Ag (NEGATIVE) RSV (PCR) (NEGATIVE) SARS-CoV-2 (PCR) (NEGATIVE) - Radiology Impressions Radiology Exams & Impressions: Radiology Procedures Category Date Time Status CHEST WITH CONTRAST [CT] Stat Exams 04/30/24 13:25 Completed - Other Procedures and Tests Respiratory Therapy 04/30/24 17:10 EKG REPEAT IN AM Oxygen Nasal Cannula 2 lpm Respiratory Therapy Consult ONCE Assessment/Plan (1) Acute exacerbation of CHF (congestive heart failure) Current Visit: Yes Status: Acute Assessment & Plan: - Chest CT: Impression: 1. Continued negative pulmonary embolus. 2. New cardiomegaly and bilateral effusions favoring cardiac decompensation/CHF. 3. Again chronic findings including pulmonary emphysema, chronic bony findings, fatty liver, and old granulomatous disease. - Lasix gave in ER- Continue BID IV - Tele - RT eval and treat O2 keep > 92 - O2 3lNC baseline Code(s): I50.9 - HEART FAILURE, UNSPECIFIED (2) Cardiomegaly Current Visit: Yes Status: Acute Assessment & Plan: - As seen on CT - ECHO - Tele Code(s): I51.7 - CARDIOMEGALY (3) Atrial fibrillation Current Visit: Yes Status: Acute Assessment & Plan: - Chronic - Tele - Not currently on blood thinners per oncology recs- risks outweight benefits - Continue metoprolol Code(s): I48.91 - UNSPECIFIED ATRIAL FIBRILLATION (4) Hypokalemia Current Visit: Yes Status: Chronic Assessment & Plan: - K+ 2.9- replaced in ER - CMP, mg+ recheck Code(s): E87.6 - HYPOKALEMIA (5) Chronic anemia Current Visit: Yes Status: Acute Assessment & Plan: - Hgb 8.9 - iron panel Code(s): D64.9 - ANEMIA, UNSPECIFIED (6) Insomnia Current Visit: Yes Status: Chronic Assessment & Plan: -Continue Amitriptyline at HS Code(s): G47.00 - INSOMNIA, UNSPECIFIED (7) Obesity, Class III, BMI 40-49.9 (morbid obesity) Current Visit: No Status: Chronic Assessment & Plan: - advised ADA diet and exercise control VTE:SCD's PPI: Protonix Next of KIN: D/C plan: 2-3 days Code status: SCo/DNR Code(s): E66.01 - MORBID (SEVERE) OBESITY DUE TO EXCESS CALORIES Telemedicine Encounter - Telemedicine Encounter Telemedicine Encounter: "The entirety of this encounter was performed via Telemedicine" This visit was performed using real-time audio and video connection between my location and thepatients locationwith the assistance of a surrogateat the patients location. Written or verbal consent was obtained from the patient/guardian to perform this visit [email or web address]. Any patient questions regarding the telemedicine interaction were answered.
[2024-04-30] MEDS ORDERED: DUPILUMAB SQ SCH (18:15)
[2024-04-30 18:31] LABS: ALBUMIN 3.9 g/dL (3.5-5.0); ANION GAP 11.4 MEQ/L (5-15); BILIRUBIN,TOTAL 0.8 mg/dL (0.2-1.3); Calcium 9.1 mg/dL (8.4-10.2); Creatinine 1 0.69 mg/dL (0.52-1.04); EST GLOMERULAR FILTRATION RATE 89.9 ML/MIN; MAGNESIUM 1.8 mg/dL (1.6-2.3); Total Protein 7.2 g/dL (6.3-8.2)
[2024-04-30 18:51] LABS: Iron 37 ug/dL (37-170); Iron Saturation 8 % (20-39); TIBC 448 ug/dL (265-462)
[2024-04-30 20:25] LABS: Ferritin 15.8 ng/mL (11.1-264); Folate (Folic Acid) > 20.0 ng/mL (2.76 - >20); Vitamin B12 > 1000 pg/mL (239-931)
[2024-04-30] MEDS: Klor Con PO SCH (20:59)
[2024-04-30] MEDS: AMITRIPTYLINE 25 MG TABLET PO SCH (21:00)
[2024-04-30] MEDS: Carafate 1 GM PO SCH (21:00)
[2024-04-30] MEDS: Lasix 40 MG/4 ML IV SCH (21:00)
[2024-04-30] MEDS: Pepcid 20 MG PO SCH (21:00)
[2024-04-30] MEDS: NEURONTIN PO SCH (21:00)
[2024-04-30] MEDS: NEURONTIN PO ONE (21:30)
[2024-04-30] MEDS: Zofran 4 MG/2 ML VIAL IV PRN (21:30)
[2024-04-30] MEDS ORDERED: NON-FORMULARY ITEM (Fluticasone Propion/Salmeterol [Advair 100-50 Diskus] 1 EACH Blst.W.De IH SCH (22:00)
[2024-05-01 05:10] LABS: Absolute Neutrophil Ct (ANC) 5.44 x10^3/uL (1.56-6.13); BASOPHIL % 0.4 % (0.1-1.2); Basophil (Absolute #) 0.03 x10^3/uL (0.01-0.08); Eosinophil % 2.2 % (0.7-5.8); Eosinophil (Absolute #) 0.18 x10^3/uL (0.04-0.36); Hematocrit 33.7 % (34.1-44.9); Hemoglobin 9.8 g/dL (11.2-15.7); IMMATURE GRAN # 0.03 x10^3u/L (0.001-0.031); IMMATURE GRAN % 0.4 % (0.001-0.429); Lymphocyte (Absolute #) 1.73 x10^3/uL (1.18-3.74); Lymphocytes % 21.6 % (19.3-51.7); Mean Cell Volume 79.7 fL (79.4-94.8); Mean Corpuscular Hemoglobin 23.2 pg (25.6-32.2); Mean Corpuscular Hgb Concent. 29.1 g/dL (32.2-35.5); Mean Platelet Volume 9.4 fL (9.4-12.3); Monocytes % 7.5 % (4.7-12.5); NUCLEATED RBC # 0.03 x10^3u/L (0.00-0.012); NUCLEATED RBC % 0.4 % (0.00-0.2); Neutrophil % 67.9 % (34.0-71.1); Platelet Count 330 x10^3/uL (182-369); Red Blood Count 4.23 x10^6/uL (3.93-5.22); Red Cell Distribution Width 19.5 % (11.7-14.4)
[2024-05-01 05:30] LABS: ALBUMIN 3.8 g/dL (3.5-5.0); ANION GAP 8.9 MEQ/L (5-15); Calcium 8.9 mg/dL (8.4-10.2); Creatinine 1 0.76 mg/dL (0.52-1.04); EST GLOMERULAR FILTRATION RATE 81.2 ML/MIN; Potassium 3.5 mmol/L (3.5-5.1); Total Protein 7.3 g/dL (6.3-8.2)
[2024-05-01] MEDS: Reglan 10 MG PO SCH (07:58)
[2024-05-01] MEDS ORDERED: MEDICATION INTERVENTION MC SCH (08:00)
--- NOTE | 2024-05-01 09:36 | XRAY ---
Indication: Pleural effusions progression. Comparison: February 21, 2024 PA/lateral chest again hyperinflated with new small bibasilar effusions/atelectasis. Upper lungs clear. Heart now borderline enlarged again with left Port-A-Cath. Bony thorax intact again with osteopenia, mild degenerative changes, and epidural leads.
[2024-05-01] MEDS: ADVAIR HFA 45/21 COMMON CANISTER IH SCH (09:45)
--- NOTE | 2024-05-01 09:59 | PCM.NOTE ---
Date and Time: 05/01/24 0944 Subjective Assessment: 04/30/24 is a 74 year old female with PMHX of morbid obesity, anxiety, A-fib (not on anticoagualtion, taken off meds by oncology), gastroesophageal reflux disease, chronic anemia, CHF, CAD, diabetes, rheumatoid arthritis, COPD, hypertension, and hyperlipidemia. She has had breast and colon cancer and currenlty in remission from colon CA. She is a patient of Dr. Lechuga (PCP), Dr. Hardin (cardiovascular), Dr. Galindo (infectious disease), Dr. Rivera (hematology/ oncology). She presented to the emergency department by the director learning service secondary to worsening shortness of breath over 1 week and worsened last night. Patient typically wears 3 L of oxygen via nasal cannula at nighttime. However, last few days she has been using it more frequently. Patient states that yesterday she wore her oxygen all day long. She had difficulty laying flat to sleep and had increased SOB. She also has had increased SOB walking. She denies chest pain, cough, fever. She was given IV fluids, lasix, and potassium replacement in the ER. K+ on admission was 2.9. Will recheck labs. OCntinue lasix BID. IV fluids stopped. She is currently on 3lNC and BL is 3lNC at [facility]. CT chest shows pleural effusions and cardiomegaly. Echo ordered. Iron panel ordered for anemia. 05/01/24 Pt resting in bed. She refused to get up and use the bathroom last night and purewick was ordered. She had 1800 out in urine last night. Weight pending as she refused to let the COURTROOM DEPUTY OR CALENDAR CLERK do this. Discussed with Renae MONSIVAIS and she will try to get her up in a chair today and weight at that time. Edema resolved. Hypokalemia resolved. SOB has improved. RT consulted to wean O2 during the day as she only wears at bedtime baseline. CXR this morning shows small bibasilar effusions/atelectasis. This is an improvement from CT Chest yesterday. Continue IV lasix. Ferrous sulfate started for iron deficiency anemia. Echo pending as her food service helper Dr. Hardin wanted her to have a new one, and was scheduled for one OP soon. Trops elevation likely to demand ischemia from CHF exacerbation. Pt has had repeated admissions for CHF exacerbation and non-compliance. She will need close f/u with PCP and cardilogy at D/C to prevent future admissions. Case management to discuss Hospice with pt as she would be a good candidate. - Review of Systems Constitutional: No Fever, No Chills Eyes: No Symptoms Ears, Nose, & Throat: No Symptoms Respiratory: Short Of Breath, No Cough Cardiac: No Chest Pain, No Edema, No Syncope Abdominal/Gastrointestinal: No Abdominal Pain, No Nausea, No Vomiting, No Diarrhea Genitourinary Symptoms: No Dysuria Musculoskeletal: No Back Pain, No Neck Pain Skin: No Rash Neurological: No Dizziness, No Focal Weakness, No Sensory Changes Psychological: No Symptoms Endocrine: No Symptoms Hematologic/Lymphatic: No Symptoms Immunological/Allergic: No Symptoms Objective Exam General Appearance: no apparent distress, alert, obese Neurologic Exam: alert, oriented x 3, cooperative, normal mood/affect, nml cerebellar function, sensation nml, uncooperative, No motor deficits Skin Exam: normal color, warm, dry Wound Assessment: Skin/Wound Assessment Wound/Incision Assessment Start: 04/30/24 22:56 Text: Status: Active Freq: Q6H Protocol: Document 05/01/24 08:00 (Rec: 05/01/24 08:50 RF [id number]) Wound/Incision Assessment Right Medial Abdomen Wound Assessment Shift Assessment Wound Type eczema area with parts that are raw & scabbed Wound Stage Non Pressure Wound Drainage Amount Minimal Drainage Description Serosanguineous General Appearance Open to air,Reddened Wound Bed Greatest Portion Red (Granulation) Surrounding Tissue [place] Comment eczema area with parts that are raw & scabbed, open to air Wound Photo Photo Taken No Eye Exam: PERRL, EOMI, eyes nml inspection Ears, Nose, Throat Exam: normal ENT inspection, pharynx normal, moist mucous membranes Neck Exam: normal inspection, non-tender, supple, full range of motion Respiratory Exam: normal breath sounds, lungs clear, diminished breath sounds (BLLL), No respiratory distress Cardiovascular Exam: regular rate/rhythm, normal heart sounds Gastrointestinal/Abdomen Exam: soft, No tenderness, No mass Extremity Exam: normal inspection, normal range of motion Back Exam: normal inspection, normal range of motion, No CVA tenderness, No vertebral tenderness Pelvic Exam: deferred Rectal Exam: deferred Objective Data Vital Signs: Vital Signs - 24 hr Temp Pulse Resp BP BP Pulse Ox 05/01/24 07:34 97.5 F 93 H 19 131/70 97 05/01/24 07:11 96 05/01/24 04:00 97.5 F 100 H 20 142/77 96 05/01/24 00:00 97.2 F 99 H 18 125/66 96 04/30/24 19:42 97.1 F 106 H 18 142/89 97 04/30/24 18:41 98 04/30/24 17:34 100 H 20 100 04/30/24 17:26 96.6 F 100 H 20 159/71 97 04/30/24 16:55 109 H 20 114/82 99 04/30/24 16:15 113 H 22 114/82 98 04/30/24 15:46 117 H 21 125/73 97 04/30/24 15:31 115 H 23 97 04/30/24 15:24 108/86 04/30/24 15:22 100 04/30/24 14:31 109/84 04/30/24 14:15 97 H 21 134/91 97 04/30/24 14:08 99 H 22 117/65 97 04/30/24 14:01 96 H 26 H 113/87 97 04/30/24 13:45 101 H 25 H 146/88 99 04/30/24 13:30 94 H 16 128/84 97 04/30/24 13:16 96 H 18 127/79 97 04/30/24 13:10 100 H 21 137/81 97 04/30/24 13:08 115 H 15 04/30/24 12:46 102/75 04/30/24 12:30 105 H 25 H 130/70 97 04/30/24 12:16 108 H 18 122/81 97 04/30/24 12:01 102 H 24 114/64 04/30/24 11:46 96 H 21 149/92 97 04/30/24 11:31 103 H 28 H 120/67 98 04/30/24 11:16 106 H 20 98/67 98 04/30/24 11:02 92 H 13 131/59 97 04/30/24 10:45 109 H 26 H 132/94 04/30/24 10:31 105 H 12 133/83 04/30/24 10:15 96 H 15 131/109 98 04/30/24 10:00 105 H 18 122/93 98 Pain Assessment - Last Documented Pain Intensity 0 Intake and Output: Intake & Output 04/28/24 04/29/24 04/30/24 05/01/24 11:59 11:59 11:59 11:59 Intake Total 600 Output Total 2900 Balance -2300 Weight 115.4 kg 112.3 kg Lab Results: Lab Results-Last 24 Hours 04/30/24 04/30/24 04/30/24 Range/Units 09:15 09:22 09:46 WBC 8.5 (3.98-10.04) x10^3/uL RBC 3.87 L (3.93-5.22) x10^6/uL Hgb 8.9 L (11.2-15.7) g/dL Hct 29.8 L (34.1-44.9) % MCV 77.0 L (79.4-94.8) fL MCH 23.0 L (25.6-32.2) pg MCHC 29.9 L (32.2-35.5) g/dL RDW 19.5 H (11.7-14.4) % Plt Count 308 (182-369) x10^3/uL MPV 9.4 (9.4-12.3) fL Gran % 71.6 H (34.0-71.1) % Immature Gran % (Auto) 0.2 (0.001-0.429) % Nucleat RBC Rel Count 0.5 H (0.00-0.2) % Eos # (Auto) 0.05 (0.04-0.36) x10^3/uL Immature Gran # (Auto) 0.02 (0.001-0.031) x10^3u/L Absolute Lymphs (auto) 1.65 (1.18-3.74) x10^3/uL Absolute Monos (auto) 0.68 (0.24-0.86) x10^3/uL Absolute Nucleated RBC 0.04 H (0.00-0.012) x10^3u/L Lymphocytes % 19.4 (19.3-51.7) % Monocytes % 8.0 (4.7-12.5) % Eosinophils % 0.6 L (0.7-5.8) % Basophils % 0.2 (0.1-1.2) % Absolute Granulocytes 6.09 (1.56-6.13) x10^3/uL Basophils # 0.02 (0.01-0.08) x10^3/uL PT (9.4-12.5) SECONDS INR (0.8-3.0) D-Dimer (0.0-0.50) mg/L Sodium Not Reportable Sodium Direct 140 (138-146) mmol/L Potassium 2.9 L* (3.5-4.9) mmol/L Chloride 99 (98-109) mmol/L Carbon Dioxide 26 (24-29) mmol/L Anion Gap Not Reportable BUN (7-17) mg/dL Venous BUN 18 (8-26) mg/dL Creatinine 0.6 (0.6-1.3) mg/dL Estimated GFR Not Reportable Glucose 109 H (70-105) mg/dL Calcium Not Reportable Ionized Calcium 1.17 (1.12-1.32) mmol/L Magnesium Not Reportable Iron (37-170) ug/dL TIBC (265-462) ug/dL Iron Saturation (20-39) % Ferritin (11.1-264) ng/mL Total Bilirubin Not Reportable AST Not Reportable ALT Not Reportable Alkaline Phosphatase Not Reportable Troponin 0.03 (0.00-0.03) ng/mL Troponin I Not Reportable NT-Pro-B Natriuret Pep Not Reportable Serum Total Protein Not Reportable Albumin Not Reportable Vitamin B12 (239-931) pg/mL Folic Acid (2.76 - >20) ng/mL Influenza Type A Ag NEGATIVE (NEGATIVE) Influenza Type B Ag NEGATIVE (NEGATIVE) RSV (PCR) NEGATIVE (NEGATIVE) SARS-CoV-2 (PCR) NEGATIVE (NEGATIVE) 04/30/24 04/30/24 04/30/24 Range/Units 09:46 12:42 18:08 WBC (3.98-10.04) x10^3/uL RBC (3.93-5.22) x10^6/uL Hgb (11.2-15.7) g/dL Hct (34.1-44.9) % MCV (79.4-94.8) fL MCH (25.6-32.2) pg MCHC (32.2-35.5) g/dL RDW (11.7-14.4) % Plt Count (182-369) x10^3/uL MPV (9.4-12.3) fL Gran % (34.0-71.1) % Immature Gran % (Auto) (0.001-0.429) % Nucleat RBC Rel Count (0.00-0.2) % Eos # (Auto) (0.04-0.36) x10^3/uL Immature Gran # (Auto) (0.001-0.031) x10^3u/L Absolute Lymphs (auto) (1.18-3.74) x10^3/uL Absolute Monos (auto) (0.24-0.86) x10^3/uL Absolute Nucleated RBC (0.00-0.012) x10^3u/L Lymphocytes % (19.3-51.7) % Monocytes % (4.7-12.5) % Eosinophils % (0.7-5.8) % Basophils % (0.1-1.2) % Absolute Granulocytes (1.56-6.13) x10^3/uL Basophils # (0.01-0.08) x10^3/uL PT 13.0 H (9.4-12.5) SECONDS INR 1.10 (0.8-3.0) D-Dimer (0.0-0.50) mg/L Sodium Sodium Direct (138-146) mmol/L Potassium (3.5-4.9) mmol/L Chloride (98-109) mmol/L Carbon Dioxide (24-29) mmol/L Anion Gap BUN (7-17) mg/dL Venous BUN (8-26) mg/dL Creatinine (0.6-1.3) mg/dL Estimated GFR Glucose (70-105) mg/dL Calcium Ionized Calcium (1.12-1.32) mmol/L Magnesium Iron (37-170) ug/dL TIBC (265-462) ug/dL Iron Saturation (20-39) % Ferritin (11.1-264) ng/mL Total Bilirubin AST ALT Alkaline Phosphatase Troponin 0.01 (0.00-0.03) ng/mL Troponin I 0.038 H* NT-Pro-B Natriuret Pep Serum Total Protein Albumin Vitamin B12 (239-931) pg/mL Folic Acid (2.76 - >20) ng/mL Influenza Type A Ag (NEGATIVE) Influenza Type B Ag (NEGATIVE) RSV (PCR) (NEGATIVE) SARS-CoV-2 (PCR) (NEGATIVE) 04/30/24 04/30/24 04/30/24 Range/Units 18:08 18:08 18:08 WBC (3.98-10.04) x10^3/uL RBC (3.93-5.22) x10^6/uL Hgb (11.2-15.7) g/dL Hct (34.1-44.9) % MCV (79.4-94.8) fL MCH (25.6-32.2) pg MCHC (32.2-35.5) g/dL RDW (11.7-14.4) % Plt Count (182-369) x10^3/uL MPV (9.4-12.3) fL Gran % (34.0-71.1) % Immature Gran % (Auto) (0.001-0.429) % Nucleat RBC Rel Count (0.00-0.2) % Eos # (Auto) (0.04-0.36) x10^3/uL Immature Gran # (Auto) (0.001-0.031) x10^3u/L Absolute Lymphs (auto) (1.18-3.74) x10^3/uL Absolute Monos (auto) (0.24-0.86) x10^3/uL Absolute Nucleated RBC (0.00-0.012) x10^3u/L Lymphocytes % (19.3-51.7) % Monocytes % (4.7-12.5) % Eosinophils % (0.7-5.8) % Basophils % (0.1-1.2) % Absolute Granulocytes (1.56-6.13) x10^3/uL Basophils # (0.01-0.08) x10^3/uL PT (9.4-12.5) SECONDS INR (0.8-3.0) D-Dimer (0.0-0.50) mg/L Sodium 140 Sodium Direct (138-146) mmol/L Potassium 3.0 L* (3.5-4.9) mmol/L Chloride 102 (98-109) mmol/L Carbon Dioxide 30 (24-29) mmol/L Anion Gap 11.4 BUN 16 (7-17) mg/dL Venous BUN (8-26) mg/dL Creatinine 0.69 (0.6-1.3) mg/dL Estimated GFR 89.9 Glucose 145 H (70-105) mg/dL Calcium 9.1 Ionized Calcium (1.12-1.32) mmol/L Magnesium 1.8 Iron 37 (37-170) ug/dL TIBC 448 (265-462) ug/dL Iron Saturation 8 L (20-39) % Ferritin 15.8 (11.1-264) ng/mL Total Bilirubin 0.80 AST 41 H ALT 45 H Alkaline Phosphatase 101 Troponin (0.00-0.03) ng/mL Troponin I NT-Pro-B Natriuret Pep Serum Total Protein 7.2 Albumin 3.9 Vitamin B12 > 1000 H (239-931) pg/mL Folic Acid > 20.0 (2.76 - >20) ng/mL Influenza Type A Ag (NEGATIVE) Influenza Type B Ag (NEGATIVE) RSV (PCR) (NEGATIVE) SARS-CoV-2 (PCR) (NEGATIVE) 05/01/24 05/01/24 Range/Units 05:08 05:08 WBC 8.0 (3.98-10.04) x10^3/uL RBC 4.23 (3.93-5.22) x10^6/uL Hgb 9.8 L (11.2-15.7) g/dL Hct 33.7 L (34.1-44.9) % MCV 79.7 (79.4-94.8) fL MCH 23.2 L (25.6-32.2) pg MCHC 29.1 L (32.2-35.5) g/dL RDW 19.5 H (11.7-14.4) % Plt Count 330 (182-369) x10^3/uL MPV 9.4 (9.4-12.3) fL Gran % 67.9 (34.0-71.1) % Immature Gran % (Auto) 0.4 (0.001-0.429) % Nucleat RBC Rel Count 0.4 H (0.00-0.2) % Eos # (Auto) 0.18 (0.04-0.36) x10^3/uL Immature Gran # (Auto) 0.03 (0.001-0.031) x10^3u/L Absolute Lymphs (auto) 1.73 (1.18-3.74) x10^3/uL Absolute Monos (auto) 0.60 (0.24-0.86) x10^3/uL Absolute Nucleated RBC 0.03 H (0.00-0.012) x10^3u/L Lymphocytes % 21.6 (19.3-51.7) % Monocytes % 7.5 (4.7-12.5) % Eosinophils % 2.2 (0.7-5.8) % Basophils % 0.4 (0.1-1.2) % Absolute Granulocytes 5.44 (1.56-6.13) x10^3/uL Basophils # 0.03 (0.01-0.08) x10^3/uL PT (9.4-12.5) SECONDS INR (0.8-3.0) D-Dimer (0.0-0.50) mg/L Sodium 139 Sodium Direct (138-146) mmol/L Potassium 3.5 (3.5-4.9) mmol/L Chloride 98 (98-109) mmol/L Carbon Dioxide 36 H (24-29) mmol/L Anion Gap 8.9 BUN 12 (7-17) mg/dL Venous BUN (8-26) mg/dL Creatinine 0.76 (0.6-1.3) mg/dL Estimated GFR 81.2 Glucose 99 (70-105) mg/dL Calcium 8.9 Ionized Calcium (1.12-1.32) mmol/L Magnesium Iron (37-170) ug/dL TIBC (265-462) ug/dL Iron Saturation (20-39) % Ferritin (11.1-264) ng/mL Total Bilirubin 1.00 AST 39 H ALT 40 H Alkaline Phosphatase 108 Troponin (0.00-0.03) ng/mL Troponin I NT-Pro-B Natriuret Pep 5090 Serum Total Protein 7.3 Albumin 3.8 Vitamin B12 (239-931) pg/mL Folic Acid (2.76 - >20) ng/mL Influenza Type A Ag (NEGATIVE) Influenza Type B Ag (NEGATIVE) RSV (PCR) (NEGATIVE) SARS-CoV-2 (PCR) (NEGATIVE) Radiology Exams: Radiology Procedures Category Date Time Status CHEST 2 VIEWS (PA AND LAT) Routine Exams 05/01/24 07:24 Completed CHEST WITH CONTRAST [CT] Stat Exams 04/30/24 13:25 Completed ECHO W/2D AND DOPPLER [US] Routine Exams 05/01/24 08:00 Ordered Assessment/Plan (1) Acute exacerbation of CHF (congestive heart failure) Current Visit: Yes Status: Acute Code(s): I50.9 - HEART FAILURE, UNSPECIFIED (2) Cardiomegaly Current Visit: Yes Status: Acute Code(s): I51.7 - CARDIOMEGALY (3) Atrial fibrillation Current Visit: Yes Status: Acute Code(s): I48.91 - UNSPECIFIED ATRIAL FIBRILLATION (4) Hypokalemia Current Visit: Yes Status: Chronic Code(s): E87.6 - HYPOKALEMIA (5) Chronic anemia Current Visit: Yes Status: Acute Code(s): D64.9 - ANEMIA, UNSPECIFIED (6) Insomnia Current Visit: Yes Status: Chronic Code(s): G47.00 - INSOMNIA, UNSPECIFIED (7) Obesity, Class III, BMI 40-49.9 (morbid obesity) Current Visit: No Status: Chronic Assessment & Plan: (1) Acute exacerbation of CHF (congestive heart failure) Current Visit: Yes Status: Acute Assessment & Plan: - Chest CT: Impression: 1. Continued negative pulmonary embolus. 2. New cardiomegaly and bilateral effusions favoring cardiac decompensation/CHF. 3. Again chronic findings including pulmonary emphysema, chronic bony findings, fatty liver, and old granulomatous disease. - Lasix gave in ER- Continue BID IV - Tele - RT eval and treat O2 keep > 92 - O2 3lNC baseline 05/01 - RT wean O2 as she does not wear during the day - Consider Hospice for repeat admissions and wants SCO/ DNR status - PT eval and treat as pt refuses to get up to urinate- now using purewick - CXR: PA/lateral chest again hyperinflated with new small bibasilar effusions/atelectasis. Upper lungs clear. Heart now borderline enlarged again with left Port-A-Cath. Bony thorax intact again with osteopenia, mild degenerative changes, and epidural leads - Continue lasix BID IV - Low sodium, carb consistent diet - Procal pending - AST/ALT elevated 2:2 CHF - edema resolved - 3kg weight loss from yesterday Code(s): I50.9 - HEART FAILURE, UNSPECIFIED (2) Cardiomegaly Current Visit: Yes Status: Acute Assessment & Plan: - As seen on CT - ECHO- pending - Tele - Per pt Dr. Hardin- her food service helper wants repeat echo and ordered one to be done soon OP. - Previous Echo dated 02/17/24 shows EF 50% Code(s): I51.7 - CARDIOMEGALY (3) Atrial fibrillation Current Visit: Yes Status: Acute Assessment & Plan: - Chronic - Tele - Not currently on blood thinners per oncology recs- risks outweigh benefits - Continue metoprolol Code(s): I48.91 - UNSPECIFIED ATRIAL FIBRILLATION (4) Hypokalemia Current Visit: Yes Status: Chronic Assessment & Plan: - K+ 2.9- replaced in ER - CMP, mg+ recheck 05/01 - K+ 3.5 resolved Code(s): E87.6 - HYPOKALEMIA (5) Chronic anemia Current Visit: Yes Status: Acute Assessment & Plan: - Hgb 8.9 - iron panel 05/01 - + iron def anemia- started ferrous sulfate daily - Hgb 9.8- trend Code(s): D64.9 - ANEMIA, UNSPECIFIED (6) Insomnia Current Visit: Yes Status: Chronic Assessment & Plan: -Continue Amitriptyline at HS Code(s): G47.00 - INSOMNIA, UNSPECIFIED (7) Obesity, Class III, BMI 40-49.9 (morbid obesity) Current Visit: No Status: Chronic Assessment & Plan: - advised ADA diet and exercise control VTE:SCD's PPI: Protonix Next of KIN: Yvonne Sandoval [phone] D/C plan: 1-2 days Code status: SCO/DNR Code(s): E66.01 - MORBID (SEVERE) OBESITY DUE TO EXCESS CALORIES Code(s): E66.01 - MORBID (SEVERE) OBESITY DUE TO EXCESS CALORIES
[2024-05-01] MEDS ORDERED: NON-FORMULARY ITEM (Cholecalciferol (Vitamin D3) [Vitamin D3] 1,250 MCG Tablet) PO SCH (10:00)
[2024-05-01] MEDS ORDERED: LACTOBACILLUS ACIDOPHILUS PO SCH (10:00)
[2024-05-01] MEDS: NEURONTIN PO SCH ×2 (10:58→21:37)
[2024-05-01] MEDS: Toprol Xl 100 MG PO SCH (10:58)
[2024-05-01] MEDS: VITAMIN D PO SCH (10:58)
[2024-05-01] MEDS: Acidophilus TABLET PO SCH (10:58)
[2024-05-01] MEDS: Vitamin B-12 500 MCG PO SCH (10:58)
[2024-05-01] MEDS: FEOSOL 325 MG PO SCH (10:58)
[2024-05-01] MEDS: FOLATE 1 MG PO SCH (10:58)
[2024-05-01] MEDS: Protonix 40MG Tablet PO SCH (10:59)
[2024-05-01] MEDS: Advair Hfa 115/21 Common canister IH SCH (19:43)
[2024-05-02 05:57] LABS: Hemoglobin 9.6 g/dL (11.2-15.7); Mean Cell Volume 80.4 fL (79.4-94.8); Mean Corpuscular Hemoglobin 22.7 pg (25.6-32.2); Mean Corpuscular Hgb Concent. 28.2 g/dL (32.2-35.5); Mean Platelet Volume 9.3 fL (9.4-12.3); Platelet Count 311 x10^3/uL (182-369); Red Blood Count 4.23 x10^6/uL (3.93-5.22); Red Cell Distribution Width 19.6 % (11.7-14.4); White Blood Count 8.7 x10^3/uL (3.98-10.04)
[2024-05-02 06:21] LABS: ALBUMIN 3.7 g/dL (3.5-5.0); ANION GAP 11.5 MEQ/L (5-15); BILIRUBIN,TOTAL 0.7 mg/dL (0.2-1.3); Calcium 8.9 mg/dL (8.4-10.2); Creatinine 1 0.7 mg/dL (0.52-1.04); EST GLOMERULAR FILTRATION RATE 89.6 ML/MIN; Potassium 3.3 mmol/L (3.5-5.1); Total Protein 6.9 g/dL (6.3-8.2)
[2024-05-02] MEDS: Klor Con PO ONE (09:28)
[2024-05-02] MEDS: AQUAPHOR OINTMENT 50 GM TP SCH (11:27)
--- NOTE | 2024-05-02 12:04 | PCM.NOTE ---
Date and Time: 05/02/24 1145 Subjective Assessment: 04/30/24 is a 74 year old female with PMHX of morbid obesity, anxiety, A-fib (not on anticoagualtion, taken off meds by oncology), gastroesophageal reflux disease, chronic anemia, CHF, CAD, diabetes, rheumatoid arthritis, COPD, hypertension, and hyperlipidemia. She has had breast and colon cancer and currenlty in remission from colon CA. She is a patient of Dr. Lechuga (PCP), Dr. Hardin (cardiovascular), Dr. Galindo (infectious disease), Dr. Rivera (hematology/ oncology). She presented to the emergency department by the body work auto trimmer service secondary to worsening shortness of breath over 1 week and worsened last night. Patient typically wears 3 L of oxygen via nasal cannula at nighttime. However, last few days she has been using it more frequently. Patient states that yesterday she wore her oxygen all day long. She had difficulty laying flat to sleep and had increased SOB. She also has had increased SOB walking. She denies chest pain, cough, fever. She was given IV fluids, lasix, and potassium replacement in the ER. K+ on admission was 2.9. Will recheck labs. OCntinue lasix BID. IV fluids stopped. She is currently on 3lNC and BL is 3lNC at [facility]. CT chest shows pleural effusions and cardiomegaly. Echo ordered. Iron panel ordered for anemia. 05/01/24 Pt resting in bed. She refused to get up and use the bathroom last night and purewick was ordered. She had 1800 out in urine last night. Weight pending as she refused to let the PROFESSIONAL DEVELOPMENT MANAGER do this. Discussed with Renae MONSIVAIS and she will try to get her up in a chair today and weight at that time. Edema resolved. Hypokalemia resolved. SOB has improved. RT consulted to wean O2 during the day as she only wears at bedtime baseline. CXR this morning shows small bibasilar effusions/atelectasis. This is an improvement from CT Chest yesterday. Continue IV lasix. Ferrous sulfate started for iron deficiency anemia. Echo pending as her pta Dr. Hardin wanted her to have a new one, and was scheduled for one OP soon. Trops elevation likely to demand ischemia from CHF exacerbation. Pt has had repeated admissions for CHF exacerbation and non-compliance. She will need close f/u with PCP and cardilogy at D/C to prevent future admissions. Case management to discuss Hospice with pt as she would be a good candidate. 05/02/24 Pt resting in bed. She reported this morning she has had CP since 4 am and nobody has done anything about this. Discussed with nurse and she said she was not told this in report or knew any thing about this. EKG and trops ordered. EKG shows a-fib which is chronic. 1st trop not elevated. Pt states since she had a BM she is now feeling better. She is rather irritable today. She is c/o about everything including meds she is taking and not being able to care for herself at home. However, she refuses any assistance at home. Per RT note in February she was qualified for home O2 2LNC to wear all the time. On admission pt told me she only wears at night. She is currently 95% on 2lNC. Pt refused Hospice yesterday and she has had repeat admissions for CHF. She refuses rehab or ECF placement. She stated if she is discharged she will come right back to the ER. Discussed labs and and radiology results in detail. K+ 3.3 and replaced. Will recheck at noon. Will keep pt another night. My recommendation is to transfer to a higher level of care if she comes back to the ER as she feels we are not helping her enough. She needs further workup by her pta and testing we cannot provide at this facility. - Review of Systems Constitutional: No Fever, No Chills Eyes: No Symptoms Ears, Nose, & Throat: No Symptoms Respiratory: Orthopnea, Short Of Breath, No Cough Cardiac: Chest Pain, No Edema, No Syncope Abdominal/Gastrointestinal: No Abdominal Pain, No Nausea, No Vomiting, No Diarrhea Genitourinary Symptoms: No Dysuria Musculoskeletal: No Back Pain, No Neck Pain Skin: No Rash Neurological: Irritability, No Dizziness, No Focal Weakness, No Sensory Changes Psychological: No Symptoms Endocrine: No Symptoms Hematologic/Lymphatic: No Symptoms Immunological/Allergic: No Symptoms Objective Exam General Appearance: no apparent distress, alert, obese Neurologic Exam: alert, oriented x 3, cooperative, normal mood/affect, nml cerebellar function, sensation nml, agitation, motor weakness, No motor deficits Skin Exam: normal color, warm, dry Wound Assessment: Skin/Wound Assessment Wound/Incision Assessment Start: 04/30/24 22:56 Text: Status: Active Freq: Q6H Protocol: Document 05/02/24 08:20 JV (Rec: 05/02/24 10:47 JV [id number]) Wound/Incision Assessment Right Medial Abdomen Wound Assessment Shift Assessment Wound Type eczema - raw & scabbed areas Wound Stage Non Pressure Wound Drainage Amount Minimal Drainage Description Serosanguineous General Appearance Open to air,Reddened Wound Bed Greatest Portion Red (Granulation) Surrounding Tissue [place] Comment open to air. Remains true Wound Photo Photo Taken No Eye Exam: PERRL, EOMI, eyes nml inspection Ears, Nose, Throat Exam: normal ENT inspection, pharynx normal, moist mucous membranes Neck Exam: normal inspection, non-tender, supple, full range of motion Respiratory Exam: normal breath sounds, lungs clear, No respiratory distress Cardiovascular Exam: normal heart sounds, irregular Gastrointestinal/Abdomen Exam: soft, No tenderness, No mass Extremity Exam: normal inspection, normal range of motion Back Exam: normal inspection, normal range of motion, No CVA tenderness, No vertebral tenderness Pelvic Exam: deferred Rectal Exam: deferred Objective Data Vital Signs: Vital Signs - 24 hr Temp Pulse Resp BP Pulse Ox 05/02/24 11:18 98.2 F 92 H 16 142/63 95 05/02/24 08:32 106 H 18 96 05/02/24 06:43 96.3 F 101 H 18 124/62 97 05/02/24 03:50 96.7 F 105 H 18 125/75 95 05/01/24 23:57 96.5 F 90 18 135/69 96 05/01/24 19:58 97.9 F 84 18 127/63 97 05/01/24 19:40 101 H 16 90 L 05/01/24 16:00 97.4 F 98 H 18 128/67 95 05/01/24 13:25 95 05/01/24 12:00 97.2 F 98 H 19 155/82 98 Pain Assessment - Last Documented Pain Intensity 0 Intake and Output: Intake & Output 04/29/24 04/30/24 05/01/24 05/02/24 11:59 11:59 11:59 11:59 Intake Total 600 1240 Output Total 2900 2024 Balance -2300 -785 Weight 115.4 kg 109.9 kg 108.2 kg Lab Results: Lab Results-Last 24 Hours 05/02/24 05/02/24 05/02/24 Range/Units 05:46 05:46 08:50 WBC 8.7 (3.98-10.04) x10^3/uL RBC 4.23 (3.93-5.22) x10^6/uL Hgb 9.6 L (11.2-15.7) g/dL Hct 34.0 L (34.1-44.9) % MCV 80.4 (79.4-94.8) fL MCH 22.7 L (25.6-32.2) pg MCHC 28.2 L (32.2-35.5) g/dL RDW 19.6 H (11.7-14.4) % Plt Count 311 (182-369) x10^3/uL MPV 9.3 L (9.4-12.3) fL Sodium 139 (135-145) mmol/L Potassium 3.3 L (3.5-5.1) mmol/L Chloride 96 L (98-107) mmol/L Carbon Dioxide 34 H (22-30) mmol/L Anion Gap 11.5 (5-15) MEQ/L BUN 14 (7-17) mg/dL Creatinine 0.70 (0.52-1.04) mg/dL Estimated GFR 89.6 ML/MIN Glucose 107 H (74-106) mg/dL Calcium 8.9 (8.4-10.2) mg/dL Total Bilirubin 0.70 (0.2-1.3) mg/dL AST 28 (14-36) U/L ALT 30 (0-35) U/L Alkaline Phosphatase 98 (38-126) U/L Troponin I 0.033 (0.000-0.033) ng/mL Serum Total Protein 6.9 (6.3-8.2) g/dL Albumin 3.7 (3.5-5.0) g/dL Radiology Exams: Radiology Procedures Category Date Time Status CHEST 2 VIEWS (PA AND LAT) Routine Exams 05/01/24 07:24 Completed CHEST WITH CONTRAST [CT] Stat Exams 04/30/24 13:25 Completed ECHO W/2D AND DOPPLER [US] Routine Exams 05/01/24 08:00 Taken Multi-Disciplinary Progress Notes: Multi-Disciplinary Progress Notes 05/02/24 11:06 Radiology Note by NELSON POON TRANSTHORACIC ECHOCARDIOGRAM 05/01/2024: 1. Technically difficult study. 2. Moderately dilated atria. Normal ventricular chamber sizes. 3. Mild concentric left ventricular hypertrophy. 4. Mild to moderately depressed LV systolic function with an estimated EF 40%. The anteroseptal wall is severely hypokinetic. The anterior wall is suboptimally seen but also appears hypokinetic. Other wall segments appear to contract normally. 5. Unable to assess diastolic function due to patient's underlying atrial fibrillation. 6. Normal right ventricular systolic function. 7. Moderate aortic sclerosis without stenosis. 8. No significant valvular regurgitation noted. 9. PA systolic pressure is underestimated. 10. Normal right atrial pressure. 11. Very small posterior pericardial effusion without echocardiographic evidence of tamponade. Nelson Poon MD [facility] Initialized on 05/02/24 11:06 - END OF NOTE 05/02/24 08:37 Respiratory Note by Daisha Jack Pt was qualified for home oxygen 2L NC / on February 19 2024. Initialized on 05/02/24 08:37 - END OF NOTE 05/01/24 13:25 Respiratory Note by Elsa Reyes PATIENT STATES SHE IS SHORT OF BREATH AT THIS TIME AND REQUEST O2 NOT BE WEANED AT THIS TIME. Initialized on 05/01/24 13:25 - END OF NOTE 05/01/24 12:05 Case Management Note by Santa Montanez PATIENT STATED SHE DOES NOT HAVE A NEB MACHINE AT HOME- IF NEEDED AT DC- THIS [place] [facility] NEED ORDERED THRU [facility]. ORDER FORM PLACED ON CHART Initialized on 05/01/24 12:05 - END OF NOTE Assessment/Plan (1) Acute exacerbation of CHF (congestive heart failure) Current Visit: Yes Status: Acute Code(s): I50.9 - HEART FAILURE, UNSPECIFIED (2) Cardiomegaly Current Visit: Yes Status: Acute Code(s): I51.7 - CARDIOMEGALY (3) Atrial fibrillation Current Visit: Yes Status: Acute Code(s): I48.91 - UNSPECIFIED ATRIAL FIBRILLATION (4) Hypokalemia Current Visit: Yes Status: Chronic Code(s): E87.6 - HYPOKALEMIA (5) Chronic anemia Current Visit: Yes Status: Acute Code(s): D64.9 - ANEMIA, UNSPECIFIED (6) Insomnia Current Visit: Yes Status: Chronic Code(s): G47.00 - INSOMNIA, UNSPECIFIED (7) Obesity, Class III, BMI 40-49.9 (morbid obesity) Current Visit: No Status: Chronic Assessment & Plan: (1) Acute exacerbation of CHF (congestive heart failure) Current Visit: Yes Status: Acute Assessment & Plan: - Chest CT: Impression: 1. Continued negative pulmonary embolus. 2. New cardiomegaly and bilateral effusions favoring cardiac decompensation/CHF. 3. Again chronic findings including pulmonary emphysema, chronic bony findings, fatty liver, and old granulomatous disease. - Lasix gave in ER- Continue BID IV - Tele - RT eval and treat O2 keep > 92 - O2 3lNC baseline 05/01 - RT wean O2 as she does not wear during the day - Consider Hospice for repeat admissions and wants SCO/ DNR status - PT eval and treat as pt refuses to get up to urinate- now using purewick - CXR: PA/lateral chest again hyperinflated with new small bibasilar effusions/atelectasis. Upper lungs clear. Heart now borderline enlarged again with left Port-A-Cath. Bony thorax intact again with osteopenia, mild degenerative changes, and epidural leads - Continue lasix BID IV - Low sodium, carb consistent diet - Procal pending - AST/ALT elevated 2:2 CHF - edema resolved - 3kg weight loss from yesterday 05/02 - 6kg weight loss since admission - on baseline 2lNC - Continue lasix BID - Edema resolved - EKG today shows a-fib - Trop negative Code(s): I50.9 - HEART FAILURE, UNSPECIFIED (2) Cardiomegaly Current Visit: Yes Status: Acute Assessment & Plan: - As seen on CT - ECHO- EF 60-65% - Tele - Per pt Dr. Hardin- her pta wants repeat echo and ordered one to be done soon OP. - Previous Echo dated 02/17/24 shows EF 50% Code(s): I51.7 - CARDIOMEGALY (3) Atrial fibrillation Current Visit: Yes Status: Acute Assessment & Plan: - Chronic - Tele - Not currently on blood thinners per oncology recs- risks outweigh benefits - Continue metoprolol Code(s): I48.91 - UNSPECIFIED ATRIAL FIBRILLATION (4) Hypokalemia Current Visit: Yes Status: Chronic Assessment & Plan: - K+ 2.9- replaced in ER - CMP, mg+ recheck 05/01 - K+ 3.5 resolved 05/02 - K+ 3.3 replaced Code(s): E87.6 - HYPOKALEMIA (5) Chronic anemia Current Visit: Yes Status: Acute Assessment & Plan: - Hgb 8.9 - iron panel 05/01 - + iron def anemia- started ferrous sulfate daily - Hgb 9.8- trend 05/02 -Hgb 9.6 Code(s): D64.9 - ANEMIA, UNSPECIFIED (6) Insomnia Current Visit: Yes Status: Chronic Assessment & Plan: -Continue Amitriptyline at HS Code(s): G47.00 - INSOMNIA, UNSPECIFIED (7) Obesity, Class III, BMI 40-49.9 (morbid obesity) Current Visit: No Status: Chronic Assessment & Plan: - advised ADA diet and exercise control Code(s): E66.01 - MORBID (SEVERE) OBESITY DUE TO EXCESS CALORIES
[2024-05-03 05:55] LABS: Hematocrit 31.7 % (34.1-44.9); Hemoglobin 9.1 g/dL (11.2-15.7); Mean Cell Volume 78.9 fL (79.4-94.8); Mean Corpuscular Hemoglobin 22.6 pg (25.6-32.2); Mean Corpuscular Hgb Concent. 28.7 g/dL (32.2-35.5); Mean Platelet Volume 9.5 fL (9.4-12.3); Platelet Count 321 x10^3/uL (182-369); Red Blood Count 4.02 x10^6/uL (3.93-5.22); Red Cell Distribution Width 19.6 % (11.7-14.4); White Blood Count 8.1 x10^3/uL (3.98-10.04)
[2024-05-03 06:05] LABS: ALBUMIN 3.6 g/dL (3.5-5.0); ANION GAP 10.3 MEQ/L (5-15); BILIRUBIN,TOTAL 0.6 mg/dL (0.2-1.3); Calcium 9.1 mg/dL (8.4-10.2); Creatinine 1 0.71 mg/dL (0.52-1.04); EST GLOMERULAR FILTRATION RATE 88.1 ML/MIN; MAGNESIUM 1.9 mg/dL (1.6-2.3); Potassium 3.9 mmol/L (3.5-5.1); Total Protein 6.7 g/dL (6.3-8.2)
--- NOTE | 2024-05-03 08:22 | PCM.DS ---
Discharge Summary Date of Admission: 04/30/24 17:07 Date of Discharge: 05/03/24 Admitting Physician: HEIDI RIBEIRO MD Primary Care Provider: WANDRE MONTOYA Allergies Allergies bee venom protein (honey bee) Allergy (Severe, Verified 04/25/24 03:01) Anaphylactic Reaction venom-wasp Allergy (Verified 04/25/24 03:01) Anaphylactic Reaction acetaminophen [From Tylenol-Codeine] Adverse Reaction (Mild, Verified 04/25/24 03:01) Nausea codeine [From Tylenol-Codeine] Adverse Reaction (Mild, Verified 04/25/24 03:01) Nausea bandaids Adverse Reaction (Mild, Uncoded 04/25/24 03:01) redness/swelling Hospital Summary - Hospital Course Hospital Course: 04/30/24 is a 74 year old female with PMHX of morbid obesity, anxiety, A-fib (not on anticoagualtion, taken off meds by oncology), gastroesophageal reflux disease, chronic anemia, CHF, CAD, diabetes, rheumatoid arthritis, COPD, hypertension, and hyperlipidemia. She has had breast and colon cancer and currenlty in remission from colon CA. She is a patient of Dr. Montoya (PCP), Dr. Hardin (cardiovascular), Dr. Galindo (infectious disease), Dr. Rivera (hematology/ oncology). She presented to the emergency department by the analytical clerk service secondary to worsening shortness of breath over 1 week and worsened last night. Patient typically wears 3 L of oxygen via nasal cannula at nighttime. However, last few days she has been using it more frequently. Patient states that yesterday she wore her oxygen all day long. She had difficulty laying flat to sleep and had increased SOB. She also has had increased SOB walking. She denies chest pain, cough, fever. She was given IV fluids, lasix, and potassium replacement in the ER. K+ on admission was 2.9. Will recheck labs. OCntinue lasix BID. IV fluids stopped. She is currently on 3lNC and BL is 3lNC at [facility]. CT chest shows pleural effusions and cardiomegaly. Echo ordered. Iron panel ordered for anemia. 05/01/24 Pt resting in bed. She refused to get up and use the bathroom last night and purewick was ordered. She had 1800 out in urine last night. Weight pending as she refused to let the PRODUCTION ENGINEER TRACK do this. Discussed with PRODUCTION ENGINEER TRACK, Renae and she will try to get her up in a chair today and weight at that time. Edema resolved. Hypokalemia resolved. SOB has improved. RT consulted to wean O2 during the day as she only wears at bedtime baseline. CXR this morning shows small bibasilar effusions/atelectasis. This is an improvement from CT Chest yesterday. Continue IV lasix. Ferrous sulfate started for iron deficiency anemia. Echo pending as her plumber assistant Dr. Hardin wanted her to have a new one, and was scheduled for one OP soon. Trops elevation likely to demand ischemia from CHF exacerbation. Pt has had repeated admissions for CHF exacerbation and non-compliance. She will need close f/u with PCP and cardilogy at D/C to prevent future admissions. Case management to discuss Hospice with pt as she would be a good candidate. 05/02/24 Pt resting in bed. She reported this morning she has had CP since 4 am and lonny alexandre has done anything about this. Discussed with nurse and she said she was not told this in report or knew any thing about this. EKG and trops ordered. EKG shows a-fib which is chronic. 1st trop not elevated. Pt states since she had a BM she is now feeling better. She is rather irritable today. She is c/o about everything including meds she is taking and not being able to care for herself at home. However, she refuses any assistance at home. Per RT note in February she was qualified for home O2 2LNC to wear all the time. On admission pt told me she only wears at night. She is currently 95% on 2lNC, she is irritated and states her baseline is 3lNC and she should be on that not 2lNC. O2 increased for pt. Pt refused Hospice yesterday and she has had repeat admissions for CHF. She refuses rehab or ECF placement. She stated if she is discharged she will come right back to the ER. Discussed labs and and radiology results in detail. K+ 3.3 and replaced. Will recheck at noon. Will keep pt another night. My recommendation is to transfer to a higher level of care if she comes back to the ER as she feels we are not helping her enough. She needs further workup by her plumber assistant and testing we cannot provide at this facility. 05/03/24 This morning pt resting in bed. She is again being rather irritable with staff and explaining that if she is discharged today she will come right back to the ER for care. Discussed labs in detail. Discussed Echo with EF of 40%. Discussed she needs to f/u with her plumber assistant this week for further OP testing. She is on baseline oxygen of 3lNC at 93%. She is is to d/c today as there is nothing more we can treat her for at this time in the hospital. My recommendation again is to transfer to a higher level of care if she comes back to the ER as she fe els we are not helping her enough. She needs further workup by her plumber assistant and testing we cannot provide at this facility. - Vitals & Intake/Output Vital Signs: Vital Signs Temperature 96.8 F 05/03/24 07:06 Pulse Rate 98 H 05/03/24 07:06 Respiratory Rate 22 05/03/24 07:06 Blood Pressure 140/64 05/03/24 07:06 O2 Sat by Pulse Oximetry 97 05/03/24 07:06 Intake & Output: Intake & Output 04/30/24 05/01/24 05/02/24 05/03/24 11:59 11:59 11:59 11:59 Intake Total 600 1240 480 Output Total 2900 5 2550 Balance -2299 Weight 115.4 kg 109.9 kg 108.2 kg 109.8 kg - Lab Result Diagrams: 05/03/24 05:40 05/03/24 05:40 Lab Results-Last 24 Hrs: Lab Results-Last 24 Hours 05/02/24 05/02/24 05/03/24 Range/Units 08:50 14:05 05:40 WBC 8.1 (3.98-10.04) x10^3/uL RBC 4.02 (3.93-5.22) x10^6/uL Hgb 9.1 L (11.2-15.7) g/dL Hct 31.7 L (34.1-44.9) % MCV 78.9 L (79.4-94.8) fL MCH 22.6 L (25.6-32.2) pg MCHC 28.7 L (32.2-35.5) g/dL RDW 19.6 H (11.7-14.4) % Plt Count 321 (182-369) x10^3/uL MPV 9.5 (9.4-12.3) fL Sodium (135-145) mmol/L Potassium 3.6 (3.5-5.1) mmol/L Chloride (98-107) mmol/L Carbon Dioxide (22-30) mmol/L Anion Gap (5-15) MEQ/L BUN (7-17) mg/dL Creatinine (0.52-1.04) mg/dL Estimated GFR ML/MIN Glucose (74-106) mg/dL Calcium (8.4-10.2) mg/dL Magnesium (1.6-2.3) mg/dL Total Bilirubin (0.2-1.3) mg/dL AST (14-36) U/L ALT (0-35) U/L Alkaline Phosphatase (38-126) U/L Troponin I 0.033 (0.000-0.033) ng/mL Serum Total Protein (6.3-8.2) g/dL Albumin (3.5-5.0) g/dL 05/03/24 Range/Units 05:40 WBC (3.98-10.04) x10^3/uL RBC (3.93-5.22) x10^6/uL Hgb (11.2-15.7) g/dL Hct (34.1-44.9) % MCV (79.4-94.8) fL MCH (25.6-32.2) pg MCHC (32.2-35.5) g/dL RDW (11.7-14.4) % Plt Count (182-369) x10^3/uL MPV (9.4-12.3) fL Sodium 137 (135-145) mmol/L Potassium 3.9 (3.5-5.1) mmol/L Chloride 98 (98-107) mmol/L Carbon Dioxide 32 H (22-30) mmol/L Anion Gap 10.3 (5-15) MEQ/L BUN 13 (7-17) mg/dL Creatinine 0.71 (0.52-1.04) mg/dL Estimated GFR 88.1 ML/MIN Glucose 109 H (74-106) mg/dL Calcium 9.1 (8.4-10.2) mg/dL Magnesium 1.9 (1.6-2.3) mg/dL Total Bilirubin 0.60 (0.2-1.3) mg/dL AST 27 (14-36) U/L ALT 25 (0-35) U/L Alkaline Phosphatase 90 (38-126) U/L Troponin I (0.000-0.033) ng/mL Serum Total Protein 6.7 (6.3-8.2) g/dL Albumin 3.6 (3.5-5.0) g/dL Micro Results-Entire Visit: Microbiology 04/30/24 09:46 Blood Culture - Preliminary Blood 04/30/24 09:22 Blood Culture - Preliminary Blood - Radiology Exams Ordered Rad Exams-Entire Visit: Radiology Procedures Category Date Time Status CHEST 2 VIEWS (PA AND LAT) Routine Exams 05/01/24 07:24 Completed ECHO W/2D AND DOPPLER [US] Routine Exams 05/01/24 08:00 Taken - Procedures and Test Procedures and Tests throughout Hospitalization: Therapy Orders & Screens 04/30/24 17:10 EKG REPEAT IN AM Comment: Oxygen Nasal Cannula 2 lpm Comment: Respiratory Therapy Consult ROUTINE Comment: Reason For Exam: 04/30/24 17:46 RT Miscellaneous Order ROUTINE Comment: Physician Instructions: Reason For Exam: keep O2 > 92% Diagnosis: CHF exacerbation, hypokalemia 04/30/24 18:13 RT Screen per Nursing Assess ONCE Comment: Protocol Order Physician Instructions: Greater than 3 points order RT Admission Screen Reason For Exam: Triggered on Admission Diagnosis: CHF exacerbation, hypokalemia Diagnosis: CHF exacerbation, hypokalemia Pneumonia: No Home O2: Yes Asthma: No CHF: Yes Home CPAP/BIPAP: No Home Nebs/MDI: Yes Total Points: 13 05/01/24 09:46 RT Miscellaneous Order ROUTINE Comment: Physician Instructions: Reason For Exam: wean O2 as she does not wear at daytime baseline. Diagnosis: CHF exacerbation, hypokalemia 05/01/24 10:04 PT Eval & Treat (MD Order) ONCE Reason for Eval:: refusing to get up to go to he bathroom, weakness, lives at home Diagnosis: CHF exacerbation, hypokalemia 05/01/24 20:18 Respiratory Therapy Assessment DAILY Comment: Diagnosis: CHF exacerbation, hypokalemia 05/02/24 08:48 EKG STAT Comment: Diagnosis: CHF exacerbation, hypokalemia Discharge Exam Wound Assessment: Skin/Wound Assessment Wound/Incision Assessment Start: 04/30/24 22:56 Text: Status: Active Freq: Q6H Protocol: Document 05/03/24 07:49 RB (Rec: 05/03/24 07:57 RB [id number]) Wound/Incision Assessment Right Medial Abdomen Wound Assessment Shift Assessment Wound Type eczema - raw & scabbed areas Wound Stage Non Pressure Wound Drainage Amount None General Appearance Open to air,Reddened Wound Bed Greatest Portion Red (Granulation) Surrounding Tissue [place] Wound Photo Photo Taken No Final Diagnosis/Problem List - Final Discharge Diagnosis/Problem (1) Acute exacerbation of CHF (congestive heart failure) Current Visit: Yes Status: Acute Code(s): I50.9 - HEART FAILURE, UNSPECIFIED (2) Cardiomegaly Current Visit: Yes Status: Acute Code(s): I51.7 - CARDIOMEGALY (3) Atrial fibrillation Current Visit: Yes Status: Acute Code(s): I48.91 - UNSPECIFIED ATRIAL FIB RILLATION (4) Hypokalemia Current Visit: Yes Status: Chronic Code(s): E87.6 - HYPOKALEMIA (5) Chronic anemia Current Visit: Yes Status: Acute Code(s): D64.9 - ANEMIA, UNSPECIFIED (6) Insomnia Current Visit: Yes Status: Chronic Code(s): G47.00 - INSOMNIA, UNSPECIFIED (7) Obesity, Class III, BMI 40-49.9 (morbid obesity) Current Visit: No Status: Chronic Code(s): E66.01 - MORBID (SEVERE) OBESITY DUE TO EXCESS CALORIES - Discharge Disposition: Home, Self-Care Condition: Fair Prescriptions: No Action Metoprolol Succinate 100 mg [Toprol Xl 100 MG] 100 mg PO DAILY Metoclopramide HCl 10 mg [Reglan 10 MG] 10 mg PO TIDWMEALS #30 tablet PANTOPRAZOLE 40 mg Tablet [Protonix 40MG Tablet] 40 mg PO DAILY #30 tab Amitriptyline HCl 25 mg [Amitriptyline 25 mg Tablet] 25 mg PO TID Gabapentin 300 mg PO DAILY Dupilumab [Dupixent Pen] 300 mg SQ CLARIFY Cyanocobalamin (Vitamin B-12) [Vitamin B-12] 500 mcg PO DAILY Sucralfate 1 gm [Carafate 1 GM] 1 g PO TID Folic Acid 1 mg [Folate 1 mg] 1 mg PO DAILY Lactobacillus Acidophilus [Probiotic] 1 cap PO DAILY Cholecalciferol (Vitamin D3) [Vitamin D3] 2,000 iu PO DAILY Potassium Chloride 20 meq PO QID Famotidine 20 mg PO BID Furosemide [Lasix] 40 mg PO DAILY Fluticasone Propion/Salmeterol [Advair 100-50 Diskus] 1 puff IH BID Aspirin/Acetaminophen/Caffeine [Excedrin Migraine Caplet] 2 each PO BID PRN Gabapentin 600 mg PO HS Follow up with: WANDER MONTOYA [Primary Care Provider] -
--- NOTE | 2024-05-03 09:05 | PCM.NOTE ---
Date and Time: 05/03/24 0859 Subjective Assessment: 04/30/24 is a 74 year old female with PMHX of morbid obesity, anxiety, A-fib (not on anticoagualtion, taken off meds by oncology), gastroesophageal reflux disease, chronic anemia, CHF, CAD, diabetes, rheumatoid arthritis, COPD, hypertension, and hyperlipidemia. She has had breast and colon cancer and currenlty in remission from colon CA. She is a patient of Dr. Lechuga (PCP), Dr. Hardin (cardiovascular), Dr. Galindo (infectious disease), Dr. Rivera (hematology/ oncology). She presented to the emergency department by the learning and development officer service secondary to worsening shortness of breath over 1 week and worsened last night. Patient typically wears 3 L of oxygen via nasal cannula at nighttime. However, last few days she has been using it more frequently. Patient states that yesterday she wore her oxygen all day long. She had difficulty laying flat to sleep and had increased SOB. She also has had increased SOB walking. She denies chest pain, cough, fever. She was given IV fluids, lasix, and potassium replacement in the ER. K+ on admission was 2.9. Will recheck labs. OCntinue lasix BID. IV fluids stopped. She is currently on 3lNC and BL is 3lNC at [facility]. CT chest shows pleural effusions and cardiomegaly. Echo ordered. Iron panel ordered for anemia. 05/01/24 Pt resting in bed. She refused to get up and use the bathroom last night and purewick was ordered. She had 1800 out in urine last night. Weight pending as she refused to let the [employer] do this. Discussed with Renae MONSIVAIS and she will try to get her up in a chair today and weight at that time. Edema resolved. Hypokalemia resolved. SOB has improved. RT consulted to wean O2 during the day as she only wears at bedtime baseline. CXR this morning shows small bibasilar effusions/atelectasis. This is an improvement from CT Chest yesterday. Continue IV lasix. Ferrous sulfate started for iron deficiency anemia. Echo pending as her middle school english teacher Dr. Hardin wanted her to have a new one, and was scheduled for one OP soon. Trops elevation likely to demand ischemia from CHF exacerbation. Pt has had repeated admissions for CHF exacerbation and non-compliance. She will need close f/u with PCP and cardilogy at D/C to prevent future admissions. Case management to discuss Hospice with pt as she would be a good candidate. 05/02/24 Pt resting in bed. She reported this morning she has had CP since 4 am and nobody has done anything about this. Discussed with nurse and she said she was not told this in report or knew any thing about this. EKG and trops ordered. EKG shows a-fib which is chronic. 1st trop not elevated. Pt states since she had a BM she is now feeling better. She is rather irritable today. She is c/o about everything including meds she is taking and not being able to care for herself at home. However, she refuses any assistance at home. Per RT note in February she was qualified for home O2 2LNC to wear all the time. On admission pt told me she only wears at night. She is currently 95% on 2lNC, she is irritated and states her baseline is 3lNC and she should be on that not 2lNC. O2 increased for pt. Pt refused Hospice yesterday and she has had repeat admissions for CHF. She refuses rehab or ECF placement. She stated if she is discharged she will come right back to the ER. Discussed labs and and radiology results in detail. K+ 3.3 and replaced. Will recheck at noon. Will keep pt another night. My recommendation is to transfer to a higher level of care if she comes back to the ER as she feels we are not helping her enough. She needs further workup by her middle school english teacher and testing we cannot provide at this facility. 05/03/24 This morning pt resting in bed. She is again being rather irritable with staff and explaining that if she is discharged today she will come right back to the ER for care. Pt is refusing to leave today. She is refusing chair alarm. Pt has chronic eczema on her abd. and is picking at it this morning making it bleed. Aquafor ordered and she refuses this. Advised not to pick at this as this may cause an infection. Discussed labs in detail. Discussed Echo with EF of 40%. Discussed she needs to f/u with her middle school english teacher this week for further OP testing. She is on baseline oxygen of 3lNC at 93%. Lasix changed to PO home dose from IV. Will keep pt another day and develop a plan tomorrow with case management. She refuses Hospice, HHC, rehab, or long-term placement. She feels she is too sick to go home despite everything we have discussed. Consider psych consult tomorrow. - Review of Systems Constitutional: No Fever, No Chills Eyes: No Symptoms Ears, Nose, & Throat: No Symptoms Respiratory: Short Of Breath (with walking), No Cough Cardiac: Orthopnea, Other (chest pressure - chronic), No Chest Pain, No Edema, No Syncope Abdominal/Gastrointestinal: No Abdominal Pain, No Nausea, No Vomiting, No Diarrhea Genitourinary Symptoms: No Dysuria Musculoskeletal: No Back Pain, No Neck Pain Skin: No Rash Neurological: No Dizziness, No Focal Weakness, No Sensory Changes Psychological: No Symptoms, Emotional Lability, Mood Changes Endocrine: No Symptoms Hematologic/Lymphatic: No Symptoms Immunological/Allergic: No Symptoms Objective Exam General Appearance: no apparent distress, alert, obese Neurologic Exam: alert, oriented x 3, normal mood/affect, nml cerebellar function, sensation nml, agitation, No motor deficits Skin Exam: normal color, warm, dry Wound Assessment: Skin/Wound Assessment Wound/Incision Assessment Start: 04/30/24 22:56 Text: Status: Active Freq: Q6H Protocol: Document 05/03/24 07:49 RB (Rec: 05/03/24 07:57 RB [id number]) Wound/Incision Assessment Right Medial Abdomen Wound Assessment Shift Assessment Wound Type eczema - raw & scabbed areas Wound Stage Non Pressure Wound Drainage Amount None General Appearance Open to air,Reddened Wound Bed Greatest Portion Red (Granulation) Surrounding Tissue [place] Wound Photo Photo Taken No Eye Exam: PERRL, EOMI, eyes nml inspection Ears, Nose, Throat Exam: normal ENT inspection, pharynx normal, moist mucous membranes Neck Exam: normal inspection, non-tender, supple, full range of motion Respiratory Exam: normal breath sounds, lungs clear, No respiratory distress Cardiovascular Exam: regular rate/rhythm, normal heart sounds Gastrointestinal/Abdomen Exam: soft, No tenderness, No mass Extremity Exam: normal inspection, normal range of motion Back Exam: normal inspection, normal range of motion, No CVA tenderness, No vertebral tenderness Pelvic Exam: deferred Rectal Exam: deferred Objective Data Vital Signs: Vital Signs - 24 hr Temp Pulse Resp BP Pulse Ox 05/03/24 07:06 96.8 F 98 H 22 140/64 97 05/03/24 04:00 97.7 F 99 H 18 123/58 95 05/02/24 23:36 99 H 20 05/02/24 19:38 96.6 F 106 H 17 139/78 99 05/02/24 19:03 86 18 98 05/02/24 16:00 97.1 F 75 16 117/76 95 05/02/24 11:18 98.2 F 92 H 16 142/63 95 Pain Assessment - Last Documented Pain Intensity 0 Intake and Output: Intake & Output 04/30/24 05/01/24 05/02/24 05/03/24 11:59 11:59 11:59 11:59 Intake Total 600 1240 480 Output Total 2900 2024 2550 Balance -2115 -585 -9352 Weight 115.4 kg 109.9 kg 108.2 kg 109.8 kg Lab Results: Lab Results-Last 24 Hours 05/02/24 05/02/24 05/03/24 Range/Units 08:50 14:05 05:40 WBC 8.1 (3.98-10.04) x10^3/uL RBC 4.02 (3.93-5.22) x10^6/uL Hgb 9.1 L (11.2-15.7) g/dL Hct 31.7 L (34.1-44.9) % MCV 78.9 L (79.4-94.8) fL MCH 22.6 L (25.6-32.2) pg MCHC 28.7 L (32.2-35.5) g/dL RDW 19.6 H (11.7-14.4) % Plt Count 321 (182-369) x10^3/uL MPV 9.5 (9.4-12.3) fL Sodium (135-145) mmol/L Potassium 3.6 (3.5-5.1) mmol/L Chloride (98-107) mmol/L Carbon Dioxide (22-30) mmol/L Anion Gap (5-15) MEQ/L BUN (7-17) mg/dL Creatinine (0.52-1.04) mg/dL Estimated GFR ML/MIN Glucose (74-106) mg/dL Calcium (8.4-10.2) mg/dL Magnesium (1.6-2.3) mg/dL Total Bilirubin (0.2-1.3) mg/dL AST (14-36) U/L ALT (0-35) U/L Alkaline Phosphatase (38-126) U/L Troponin I 0.033 (0.000-0.033) ng/mL Serum Total Protein (6.3-8.2) g/dL Albumin (3.5-5.0) g/dL 05/03/24 Range/Units 05:40 WBC (3.98-10.04) x10^3/uL RBC (3.93-5.22) x10^6/uL Hgb (11.2-15.7) g/dL Hct (34.1-44.9) % MCV (79.4-94.8) fL MCH (25.6-32.2) pg MCHC (32.2-35.5) g/dL RDW (11.7-14.4) % Plt Count (182-369) x10^3/uL MPV (9.4-12.3) fL Sodium 137 (135-145) mmol/L Potassium 3.9 (3.5-5.1) mmol/L Chloride 98 (98-107) mmol/L Carbon Dioxide 32 H (22-30) mmol/L Anion Gap 10.3 (5-15) MEQ/L BUN 13 (7-17) mg/dL Creatinine 0.71 (0.52-1.04) mg/dL Estimated GFR 88.1 ML/MIN Glucose 109 H (74-106) mg/dL Calcium 9.1 (8.4-10.2) mg/dL Magnesium 1.9 (1.6-2.3) mg/dL Total Bilirubin 0.60 (0.2-1.3) mg/dL AST 27 (14-36) U/L ALT 25 (0-35) U/L Alkaline Phosphatase 90 (38-126) U/L Troponin I (0.000-0.033) ng/mL Serum Total Protein 6.7 (6.3-8.2) g/dL Albumin 3.6 (3.5-5.0) g/dL Radiology Exams: Radiology Procedures Category Date Time Status ECHO W/2D AND DOPPLER [US] Routine Exams 05/01/24 08:00 Taken Multi-Disciplinary Progress Notes: Multi-Disciplinary Progress Notes 05/02/24 11:06 Radiology Note by BEAU POON TRANSTHORACIC ECHOCARDIOGRAM 05/01/2024: 1. Technically difficult study. 2. Moderately dilated atria. Normal ventricular chamber sizes. 3. Mild concentric left ventricular hypertrophy. 4. Mild to moderately depressed LV systolic function with an estimated EF 40%. The anteroseptal wall is severely hypokinetic. The anterior wall is suboptimally seen but also appears hypokinetic. Other wall segments appear to contract normally. 5. Unable to assess diastolic function due to patient's underlying atrial fibrillation. 6. Normal right ventricular systolic function. 7. Moderate aortic sclerosis without stenosis. 8. No significant valvular regurgitation noted. 9. PA systolic pressure is underestimated. 10. Normal right atrial pressure. 11. Very small posterior pericardial effusion without echocardiographic evidence of tamponade. Beau Poon MD [facility] Initialized on 05/02/24 11:06 - END OF NOTE Assessment/Plan (1) Acute exacerbation of CHF (congestive heart failure) Current Visit: Yes Status: Acute Code(s): I50.9 - HEART FAILURE, UNSPECIFIED (2) Cardiomegaly Current Visit: Yes Status: Acute Code(s): I51.7 - CARDIOMEGALY (3) Atrial fibrillation Current Visit: Yes Status: Acute Code(s): I48.91 - UNSPECIFIED ATRIAL FIBRILLATION (4) Hypokalemia Current Visit: Yes Status: Resolved Code(s): E87.6 - HYPOKALEMIA (5) Chronic anemia Current Visit: Yes Status: Acute Code(s): D64.9 - ANEMIA, UNSPECIFIED (6) Insomnia Current Visit: Yes Status: Chronic Code(s): G47.00 - INSOMNIA, UNSPECIFIED (7) Obesity, Class III, BMI 40-49.9 (morbid obesity) Current Visit: No Status: Chronic Assessment & Plan: (1) Acute exacerbation of CHF (congestive heart failure) Current Visit: Yes Status: Acute Assessment & Plan: - Chest CT: Impression: 1. Continued negative pulmonary embolus. 2. New cardiomegaly and bilateral effusions favoring cardiac decompensation/CHF. 3. Again chronic findings including pulmonary emphysema, chronic bony findings, fatty liver, and old granulomatous disease. - Lasix gave in ER- Continue BID IV - Tele - RT eval and treat O2 keep > 92 - O2 3lNC baseline 05/01 - RT wean O2 as she does not wear during the day - Consider Hospice for repeat admissions and wants SCO/ DNR status - PT eval and treat as pt refuses to get up to urinate- now using purewick - CXR: PA/lateral chest again hyperinflated with new small bibasilar effusions/atelectasis. Upper lungs clear. Heart now borderline enlarged again with left Port-A-Cath. Bony thorax intact again with osteopenia, mild degenerative changes, and epidural leads - Continue lasix BID IV - Low sodium, carb consistent diet - Procal pending - AST/ALT elevated 2:2 CHF - edema resolved - 3kg weight loss from yesterday 05/02 - 6kg weight loss since admission - on baseline 3lNC - Continue lasix BID - Edema resolved - EKG today shows a-fib - Trop negative 05/03 - Lasix changed back to home dose of PO - on baseline 3lNC - refuses to d/c consider psych consult - CM to help with d/c plan of care tomorrow Code(s): I50.9 - HEART FAILURE, UNSPECIFIED (2) Cardiomegaly Current Visit: Yes Status: Acute Assessment & Plan: - As seen on CT - ECHO- EF 40% -05/02/24 - Tele - Per pt Dr. Hardin- her middle school english teacher wants repeat echo and ordered one to be done soon OP. - Previous Echo dated 02/17/24 shows EF 50% Code(s): I51.7 - CARDIOMEGALY (3) Atrial fibrillation Current Visit: Yes Status: Acute Assessment & Plan: - Chronic - Tele - Not currently on blood thinners per oncology recs- risks outweigh benefits - Continue metoprolol Code(s): I48.91 - UNSPECIFIED ATRIAL FIBRILLATION (4) Hypokalemia Current Visit: Yes Status: Chronic Assessment & Plan: - K+ 2.9- replaced in ER - CMP, mg+ recheck 05/01 - K+ 3.5 resolved 05/02 - K+ 3.3 replaced 05/03 - K+ 3.9- WNL- resolved Code(s): E87.6 - HYPOKALEMIA (5) Chronic anemia Current Visit: Yes Status: Acute Assessment & Plan: - Hgb 8.9 - iron panel 05/01 - + iron def anemia- started ferrous sulfate daily - Hgb 9.8- trend 05/02 -Hgb 9.6 05/03 - Hgb 9.1 Code(s): D64.9 - ANEMIA, UNSPECIFIED (6) Insomnia Current Visit: Yes Status: Chronic Assessment & Plan: -Continue Amitriptyline at HS Code(s): G47.00 - INSOMNIA, UNSPECIFIED (7) Obesity, Class III, BMI 40-49.9 (morbid obesity) Current Visit: No Status: Chronic Assessment & Plan: - advised ADA diet and exercise control Code(s): E66.01 - MORBID (SEVERE) OBESITY DUE TO EXCESS CALORIES Code(s): E66.01 - MORBID (SEVERE) OBESITY DUE TO EXCESS CALORIES (8) Irritability Current Visit: Yes Status: Acute Assessment & Plan: - Pt being irritable and rude to staff - refusing chair alarm - Case management to assist with d/c plan tomorrow as pt is stable - refusing SCD's and some meds - refusing to d/c - refusing HHC, Rehab, ECF, Hospice but feels she cannot go home and take care of herself- may need to get family involved - consider psych consult (9) Eczema Current Visit: Yes Status: Chronic Assessment & Plan: - abd region - advised pt not to pick as she is causing bleeding - refused aquaphor ordered. VTE:SCD's- pt refusing PPI: Protonix Next of KIN: Yvonne LemonSandoval, D/C plan: tomorrow Code status: SCO/DNR Code(s): L30.9 - DERMATITIS, UNSPECIFIED
[2024-05-03] MEDS: Lasix 40 MG PO SCH (09:39)
--- NOTE | 2024-05-04 05:17 | PCM.DS ---
Discharge Summary Date of Admission: 04/30/24 17:07 Date of Discharge: 05/04/24 Admitting Physician: HEIDI RIBEIRO MD Primary Care Provider: WANDER MONTOYA Allergies Allergies bee venom protein (honey bee) Allergy (Severe, Verified 04/25/24 03:01) Anaphylactic Reaction venom-wasp Allergy (Verified 04/25/24 03:01) Anaphylactic Reaction acetaminophen [From Tylenol-Codeine] Adverse Reaction (Mild, Verified 04/25/24 03:01) Nausea codeine [From Tylenol-Codeine] Adverse Reaction (Mild, Verified 04/25/24 03:01) Nausea bandaids Adverse Reaction (Mild, Uncoded 04/25/24 03:01) redness/swelling Hospital Summary - Hospital Course Hospital Course: is a 74 year old female with PMHX of morbid obesity, anxiety, A-fib (not on anticoagualtion, taken off meds by oncology), gastroesophageal reflux disease, chronic anemia, CHF, CAD, diabetes, rheumatoid arthritis, COPD, hypertension, and hyperlipidemia. She has had breast and colon cancer and curr enlty in remission from colon CA. She is a patient of Dr. Montoya (PCP), Dr. Hardin (cardiovascular), Dr. Galindo (infectious disease), Dr. Rivera (hematology/ oncology). Patient admitted 04/30/24 with CHF exacerbation after presenting to ED with a one week history of progressive shortness of breath shortness of breath. Patient typically wears 3 L of oxygen via nasal cannula at nighttime - later requiring continuous as symptoms progressed. She was given IV fluids, lasix, and potassium replacement in the ER. K+ on admission was 2.9. She is currently on 3lNC and BL is 3lNC at [facility]. CT chest from 04/30/24 consistent with cardiac decompensation/CHF and cardiomegaly. CXR 05/01/24 noting clear upper lungs with small bibasilar effusions. Echo noting EF of 40%. Mild concentric left ventricular hypertrophy.Moderate aortic sclerosis without stenosis. Very small posterior pericardial effusion without echocardiographic evidence of tamponade. IP initial treatment with IV lasix - now back to PO home dosing. Edema has resolved. She has reported chest pain during hospital course. EKG shows a-fib which is chronic. Troponins normal. Ferrous sulfate started for iron deficiency anemia. Pt is stable for discharge with close follow up with her job placement counselor. She has refused Hospice. She has had frequent repeat admissions for CHF. She refuses rehab or ECF placement. High readmission risk as she has stated that if she is discharged she will come right back to the ER. Discharge Note New Diagnosis: New Medications: Follow Up: Results pending: Outpatient testing to order: Latest Assessment & Plan Acute exacerbation of CHF (congestive heart failure) -Chest CT from 04/30/24 consistent with cardiac decompensation/CHF and cardiomegaly -CXR 05/01/24 noting clear upper lungs with small bibasilar effusions -Echo 05/01/2024: 1. Technically difficult study. 2. Moderately dilated atria. Normal ventricular chamber sizes. 3. Mild concentric left ventricular hypertrophy. 4. Mild to moderately depressed LV systolic function with an estimated EF 40%. The anteroseptal wall is severely hypokinetic. The anterior wall is suboptimally seen but also appears hypokinetic. Other wall segments appear to contract normally. 5. Unable to assess diastolic function due to patient's underlying atrial fibrillation. 6. Normal right ventricular systolic function. 7. Moderate aortic sclerosis without stenosis. 8. No significant valvular regurgitation noted. 9. PA systolic pressure is underestimated. 10. Normal right atrial pressure. 11. Very small posterior pericardial effusion without echocardiographic evidence of tamponade - Low sodium, carb consistent diet -On baseline 3L NC oxygen -Initially treated with IV lasix - now at home PO dosing - refuses to d/c consider psych consult - CM to help with d/c plan of care (2) Cardiomegaly - As seen on CT - ECHO- EF 40% -05/02/24 - as stated above - Tele - Per pt Dr. Hardin- her job placement counselor wants repeat echo and ordered one to be done soon OP - Previous Echo dated 02/17/24 shows EF 50% (3) Atrial fibrillation - Chronic - Tele - Not currently on blood thinners per oncology recs- risks outweigh benefits - Continue metoprolol (4) Hypokalemia -scheduled potassium 20 meq QID (5) Chronic anemia - + iron def anemia- started ferrous sulfate daily -replace if hgb <7 (6) Insomnia -Continue Amitriptyline at HS (7) Obesity, Class III, BMI 40-49.9 (morbid obesity) - advised ADA diet and exercise control (8) Irritability - Pt being irritable and rude to staff - refusing chair alarm - Case management to assist with d/c plan tomorrow as pt is stable - refusing SCD's and some meds - refusing to d/c - refusing HHC, Rehab, ECF, Hospice but feels she cannot go home and take care of herself- may need to get family involved - consider psych consult (9) Eczema - abd region - advised pt not to pick as she is causing bleeding - refused aquaphor ordered. I spent 35 minutes [id number] with the patient on the day of discharge performing discharge exam, discussing hospital stay and discharge instructions with patient and caregivers, preparation of discharge records, prescriptions & referral forms and addressing any questions/concerns the patient had as documented above. - Vitals & Intake/Output Vital Signs: Vital Signs Temperature 97.7 F 05/04/24 00:00 Pulse Rate 90 05/04/24 03:55 Respiratory Rate 16 05/04/24 03:55 Blood Pressure 120/80 05/04/24 00:00 O2 Sat by Pulse Oximetry 94 L 05/04/24 00:00 Intake & Output: Intake & Output 05/01/24 05/02/24 05/03/24 05/04/24 11:59 11:59 11:59 11:59 Intake Total 600 1240 480 Output Total 2900 2550 250 Balance -2300 -785 -0 -557 Weight 109.9 kg 108.2 kg 109.8 kg - Lab Result Diagrams: 05/03/24 05:40 05/03/24 05:40 Lab Results-Last 24 Hrs: Lab Results-Last 24 Hours 05/03/24 05/03/24 Range/Units 05:40 05:40 WBC 8.1 (3.98-10.04) x10^3/uL RBC 4.02 (3.93-5.22) x10^6/uL Hgb 9.1 L (11.2-15.7) g/dL Hct 31.7 L (34.1-44.9) % MCV 78.9 L (79.4-94.8) fL MCH 22.6 L (25.6-32.2) pg MCHC 28.7 L (32.2-35.5) g/dL RDW 19.6 H (11.7-14.4) % Plt Count 321 (182-369) x10^3/uL MPV 9.5 (9.4-12.3) fL Sodium 137 (135-145) mmol/L Potassium 3.9 (3.5-5.1) mmol/L Chloride 98 (98-107) mmol/L Carbon Dioxide 32 H (22-30) mmol/L Anion Gap 10.3 (5-15) MEQ/L BUN 13 (7-17) mg/dL Creatinine 0.71 (0.52-1.04) mg/dL Estimated GFR 88.1 ML/MIN Glucose 109 H (74-106) mg/dL Calcium 9.1 (8.4-10.2) mg/dL Magnesium 1.9 (1.6-2.3) mg/dL Total Bilirubin 0.60 (0.2-1.3) mg/dL AST 27 (14-36) U/L ALT 25 (0-35) U/L Alkaline Phosphatase 90 (38-126) U/L Serum Total Protein 6.7 (6.3-8.2) g/dL Albumin 3.6 (3.5-5.0) g/dL Micro Results-Entire Visit: Microbiology 04/30/24 09:46 Blood Culture - Preliminary Blood 04/30/24 09:22 Blood Culture - Preliminary Blood - Procedures and Test Procedures and Tests throughout Hospitalization: Therapy Orders & Screens 04/30/24 17:10 EKG REPEAT IN AM Comment: Oxygen Nasal Cannula 2 lpm Comment: Respiratory Therapy Consult ROUTINE Comment: Reason For Exam: 04/30/24 17:46 RT Miscellaneous Order ROUTINE Comment: Physician Instructions: Reason For Exam: keep O2 > 92% Diagnosis: CHF exacerbation, hypokalemia 04/30/24 18:13 RT Screen per Nursing Assess ONCE Comment: Protocol Order Physician Instructions: Greater than 3 points order RT Admission Screen Reason For Exam: Triggered on Admission Diagnosis: CHF exacerbation, hypokalemia Diagnosis: CHF exacerbation, hypokalemia Pneumonia: No Home O2: Yes Asthma: No CHF: Yes Home CPAP/BIPAP: No Home Nebs/MDI: Yes Total Points: 13 05/01/24 09:46 RT Miscellaneous Order ROUTINE Comment: Physician Instructions: Reason For Exam: wean O2 as she does not wear at daytime baseline. Diagnosis: CHF exacerbation, hypokalemia 05/01/24 10:04 PT Eval & Treat ( Order) ONCE Reason for Eval:: refusing to get up to go to he bathroom, weakness, lives at home Diagnosis: CHF exacerbation, hypokalemia 05/01/24 20:18 Respiratory Therapy Assessment DAILY Comment: Diagnosis: CHF exacerbation, hypokalemia 05/02/24 08:48 EKG STAT Comment: Diagnosis: CHF exacerbation, hypokalemia Discharge Exam Wound Assessment: Skin/Wound Assessment Wound/Incision Assessment Start: 04/30/24 22:56 Text: Status: Active Freq: Q6H Protocol: Document 05/04/24 02:00 LB (Rec: 05/04/24 04:07 LB [id number]) Wound/Incision Assessment Right Medial Abdomen Wound Assessment Shift Assessment Wound Type eczema - raw & scabbed areas Wound Stage Non Pressure Wound Drainage Amount None General Appearance Open to air,Reddened Wound Bed Greatest Portion Red (Granulation) Surrounding Tissue [place] Wound Photo Photo Taken No Final Diagnosis/Problem List - Final Discharge Diagnosis/Problem (1) Acute exacerbation of CHF (congestive heart failure) Current Visit: Yes Status: Acute Code(s): I50.9 - HEART FAILURE, UNSPECIFIED (2) Atrial fibrillation Current Visit: Yes Status: Chronic Code(s): I48.91 - UNSPECIFIED ATRIAL FIBRILLATION (3) Cardiomegaly Current Visit: Yes Status: Acute Code(s): I51.7 - CARDIOMEGALY (4) Irritability Current Visit: Yes Status: Chronic (5) Eczema Current Visit: Yes Status: Chronic Code(s): L30.9 - DERMATITIS, UNSPECIFIED (6) Insomnia Current Visit: Yes Status: Chronic Code(s): G47.00 - INSOMNIA, UNSPECIFIED (7) Hypokalemia Current Visit: Yes Status: Resolved Code(s): E87.6 - HYPOKALEMIA (8) Obesity, Class III, BMI 40-49.9 (morbid obesity) Current Visit: No Status: Chronic Code(s): E66.01 - MORBID (SEVERE) OBESITY DUE TO EXCESS CALORIES (9) Chronic anemia Current Visit: Yes Status: Chronic Code(s): D64.9 - ANEMIA, UNSPECIFIED - Discharge Disposition: Home, Self-Care Condition: Fair Prescriptions: No Action Metoprolol Succinate 100 mg [Toprol Xl 100 MG] 100 mg PO DAILY Metoclopramide HCl 10 mg [Reglan 10 MG] 10 mg PO TIDWMEALS #30 tablet PANTOPRAZOLE 40 mg Tablet [Protonix 40MG Tablet] 40 mg PO DAILY #30 tab Amitriptyline HCl 25 mg [Amitriptyline 25 mg Tablet] 25 mg PO TID Gabapentin 300 mg PO DAILY Dupilumab [Dupixent Pen] 300 mg SQ CLARIFY Cyanocobalamin (Vitamin B-12) [Vitamin B-12] 500 mcg PO DAILY Sucralfate 1 gm [Carafate 1 GM] 1 g PO TID Folic Acid 1 mg [Folate 1 mg] 1 mg PO DAILY Lactobacillus Acidophilus [Probiotic] 1 cap PO DAILY Cholecalciferol (Vitamin D3) [Vitamin D3] 2,000 iu PO DAILY Potassium Chloride 20 meq PO QID Famotidine 20 mg PO BID Furosemide [Lasix] 40 mg PO DAILY Fluticasone Propion/Salmeterol [Advair 100-50 Diskus] 1 puff IH BID Aspirin/Acetaminophen/Caffeine [Excedrin Migraine Caplet] 2 each PO BID PRN Gabapentin 600 mg PO HS Follow up with: WANDER MONTOYA [Primary Care Provider] -
[2024-05-04 05:22] LABS: Hematocrit 34.2 % (34.1-44.9); Hemoglobin 9.6 g/dL (11.2-15.7); Mean Cell Volume 79.7 fL (79.4-94.8); Mean Corpuscular Hemoglobin 22.4 pg (25.6-32.2); Mean Corpuscular Hgb Concent. 28.1 g/dL (32.2-35.5); Mean Platelet Volume 9.5 fL (9.4-12.3); Platelet Count 329 x10^3/uL (182-369); Red Blood Count 4.29 x10^6/uL (3.93-5.22); Red Cell Distribution Width 19.3 % (11.7-14.4)
[2024-05-04 05:36] LABS: ALBUMIN 3.6 g/dL (3.5-5.0); ANION GAP 9.5 MEQ/L (5-15); BILIRUBIN,TOTAL 0.6 mg/dL (0.2-1.3); Calcium 9.3 mg/dL (8.4-10.2); Creatinine 1 0.77 mg/dL (0.52-1.04); EST GLOMERULAR FILTRATION RATE 79.9 ML/MIN; Potassium 4.2 mmol/L (3.5-5.1)
[2024-05-04 06:53] LABS: Slide Review YES
--- NOTE | 2024-05-04 10:56 | PCM.NOTE ---
Date and Time: 05/04/24 1050 Subjective Assessment: is a 74 year old female with PMHX of morbid obesity, anxiety, A-fib (not on anticoagualtion, taken off meds by oncology), gastroesophageal reflux disease, chronic anemia, CHF, CAD, diabetes, rheumatoid arthritis, COPD, hypertension, and hyperlipidemia. She has had breast and colon cancer and rosi echols in remission from colon CA. She is a patient of Dr. Lechuga (PCP), Dr. Hardin (cardiovascular), Dr. Galindo (infectious disease), Dr. Rivera (hematology/ oncology). Patient admitted 04/30/24 with CHF exacerbation after presenting to ED with a one week history of progressive shortness of breath shortness of breath. Patient typically wears 3 L of oxygen via nasal cannula at nighttime - later requiring continuous as symptoms progressed. She was given IV fluids, lasix, and potassium replacement in the ER. K+ on admission was 2.9. She is currently on 3lNC and BL is 3lNC at [facility]. CT chest from 04/30/24 consistent with cardiac decompensation/CHF and cardiomegaly. CXR 05/01/24 noting clear upper lungs with small bibasilar effusions. Echo noting EF of 40%. Mild concentric left ventricular hypertrophy.Moderate aortic sclerosis without stenosis. Very small posterior pericardial effusion without echocardiographic evidence of tamponade. IP initial treatment with IV lasix - now back to PO home dosing. Edema has resolved. She has reported chest pain during hospital course. EKG shows a-fib which is chronic. Troponins normal. Ferrous sulfate started for iron deficiency anemia. Pt is stable for discharge with close follow up with her union organizer. She has refused Hospice. She has had frequent repeat admissions for CHF. She refuses rehab or ECF placement. High readmission risk as she has stated that if she is discharged she will come right back to the ER. Patient has complaints of nausea/vomiting overnight. Not tolerating a diet. Will order CT scan/GB US today. Otherwise, labwork is stable. - Review of Systems Constitutional: No Symptoms Eyes: No Symptoms Ears, Nose, & Throat: No Symptoms Respiratory: Short Of Breath Cardiac: No Symptoms Abdominal/Gastrointestinal: Nausea, Vomiting Genitourinary Symptoms: No Symptoms Musculoskeletal: No Symptoms Skin: No Symptoms Neurological: No Symptoms Psychological: No Symptoms Endocrine: No Symptoms Hematologic/Lymphatic: No Symptoms Immunological/Allergic: No Symptoms Objective Exam General Appearance: no apparent distress Neurologic Exam: alert, oriented x 3, uncooperative Skin Exam: normal color Wound Assessment: Skin/Wound Assessment Wound/Incision Assessment Start: 04/30/24 22:56 Text: Status: Active Freq: Q6H Protocol: Document 05/04/24 08:00 RB (Rec: 05/04/24 08:32 RB [id number]) Wound/Incision Assessment Right Medial Abdomen Wound Assessment Shift Assessment Wound Type eczema - raw & scabbed areas Wound Stage Non Pressure Wound Drainage Amount None General Appearance Open to air,Reddened Wound Bed Greatest Portion Red (Granulation) Surrounding Tissue [place] Comment pt continues to scratch and pick at area, scabbed areas and some mild bleeding noted, pt educated and aquaphor applied as ordered Wound Photo Photo Taken No Eye Exam: PERRL Ears, Nose, Throat Exam: normal ENT inspection Neck Exam: normal inspection Respiratory Exam: normal breath sounds, lungs clear Cardiovascular Exam: regular rate/rhythm, normal heart sounds Gastrointestinal/Abdomen Exam: soft, normal bowel sounds Extremity Exam: normal inspection Back Exam: normal inspection Pelvic Exam: deferred Rectal Exam: deferred Objective Data Vital Signs: Vital Signs - 24 hr Temp Pulse Resp BP Pulse Ox 05/04/24 07:14 98.1 F 96 H 16 119/78 96 05/04/24 07:01 100 H 18 97 05/04/24 03:55 90 16 05/04/24 00:00 97.7 F 87 18 120/80 94 L 05/03/24 19:40 98.4 F 100 H 18 133/75 96 05/03/24 18:56 103 H 16 98 05/03/24 16:00 97.1 F 82 15 128/62 98 05/03/24 15:19 90 18 96 05/03/24 11:46 97.2 F 93 H 17 120/78 95 Pain Assessment - Last Documented Pain Intensity 0 Intake and Output: Intake & Output 05/01/24 05/02/24 05/03/24 05/04/24 11:59 11:59 11:59 11:59 Intake Total 600 1240 480 Output Total 2909 0 8465 157 Balance -3769 -666 -2386 -150 Weight 109.9 kg 108.2 kg 109.8 kg Lab Results: Lab Results-Last 24 Hours 05/04/24 05/04/24 Range/Units 04:45 04:45 WBC 9.0 (3.98-10.04) x10^3/uL RBC 4.29 (3.93-5.22) x10^6/uL Hgb 9.6 L (11.2-15.7) g/dL Hct 34.2 (34.1-44.9) % MCV 79.7 (79.4-94.8) fL MCH 22.4 L (25.6-32.2) pg MCHC 28.1 L (32.2-35.5) g/dL RDW 19.3 H (11.7-14.4) % Plt Count 329 (182-369) x10^3/uL MPV 9.5 (9.4-12.3) fL Sodium 137 (135-145) mmol/L Potassium 4.2 (3.5-5.1) mmol/L Chloride 98 (98-107) mmol/L Carbon Dioxide 34 H (22-30) mmol/L Anion Gap 9.5 (5-15) MEQ/L BUN 15 (7-17) mg/dL Creatinine 0.77 (0.52-1.04) mg/dL Estimated GFR 79.9 ML/MIN Glucose 118 H (74-106) mg/dL Calcium 9.3 (8.4-10.2) mg/dL Total Bilirubin 0.60 (0.2-1.3) mg/dL AST 27 (14-36) U/L ALT 23 (0-35) U/L Alkaline Phosphatase 94 (38-126) U/L Serum Total Protein 7.0 (6.3-8.2) g/dL Albumin 3.6 (3.5-5.0) g/dL Slides for Path Review YES Assessment/Plan (1) Acute exacerbation of CHF (congestive heart failure) Current Visit: Yes Status: Acute Assessment & Plan: -Chest CT from 04/30/24 consistent with cardiac decompensation/CHF and cardiomegaly -CXR 05/01/24 noting clear upper lungs with small bibasilar effusions -Echo 05/01/2024: 1. Technically difficult study. 2. Moderately dilated atria. Normal ventricular chamber sizes. 3. Mild concentric left ventricular hypertrophy. 4. Mild to moderately depressed LV systolic function with an estimated EF 40%. The anteroseptal wall is severely hypokinetic. The anterior wall is suboptimally seen but also appears hypokinetic. Other wall segments appear to contract normally. 5. Unable to assess diastolic function due to patient's underlying atrial fibrillation. 6. Normal right ventricular systolic function. 7. Moderate aortic sclerosis without stenosis. 8. No significant valvular regurgitation noted. 9. PA systolic pressure is underestimated. 10. Normal right atrial pressure. 11. Very small posterior pericardial effusion without echocardiographic evidence of tamponade - Low sodium, carb consistent diet -On baseline 3L NC oxygen -Initially treated with IV lasix - now at home PO dosing of torsemide - refuses to d/c consider psych consult - CM to help with d/c plan of care Code(s): I50.9 - HEART FAILURE, UNSPECIFIED (2) Atrial fibrillation Current Visit: Yes Status: Chronic Assessment & Plan: - Chronic - Tele - Not currently on blood thinners per oncology recs- risks outweigh benefits - Continue metoprolol Code(s): I48.91 - UNSPECIFIED ATRIAL FIBRILLATION (3) Cardiomegaly Current Visit: Yes Status: Acute Assessment & Plan: - As seen on CT - ECHO- EF 40% -05/02/24 - as stated above - Tele - Per pt Dr. Hardin- her union organizer wants repeat echo and ordered one to be done soon OP - Previous Echo dated 02/17/24 shows EF 50% Code(s): I51.7 - CARDIOMEGALY (4) Irritability Current Visit: Yes Status: Chronic Assessment & Plan: - Pt being irritable and rude to staff - refusing chair alarm - Case management to assist with d/c plan tomorrow as pt is stable - refusing SCD's and some meds - refusing to d/c - refusing HHC, Rehab, ECF, Hospice but feels she cannot go home and take care of herself- may need to get family involved - consider psych consult (5) Eczema Current Visit: Yes Status: Chronic Assessment & Plan: - abd region - advised pt not to pick as she is causing bleeding - refused aquaphor ordered. Code(s): L30.9 - DERMATITIS, UNSPECIFIED (6) Insomnia Current Visit: Yes Status: Chronic Assessment & Plan: -Continue Amitriptyline at HS Code(s): G47.00 - INSOMNIA, UNSPECIFIED (7) Nausea and vomiting Current Visit: Yes Status: Acute Assessment & Plan: -CT ab/pelvis -GB US -NPO -zofran Code(s): R11.2 - NAUSEA WITH VOMITING, UNSPECIFIED (8) Hypokalemia Current Visit: Yes Status: Resolved Assessment & Plan: -scheduled potassium 20 meq QID -Resolved Code(s): E87.6 - HYPOKALEMIA (9) Obesity, Class III, BMI 40-49.9 (morbid obesity) Current Visit: No Status: Chronic Assessment & Plan: - advised ADA diet and exercise control Code(s): E66.01 - MORBID (SEVERE) OBESITY DUE TO EXCESS CALORIES (10) Chronic anemia Current Visit: Yes Status: Chronic Assessment & Plan: - + iron def anemia- started ferrous sulfate daily -replace if hgb <7 Code(s): D64.9 - ANEMIA, UNSPECIFIED
--- NOTE | 2024-05-04 12:10 | XRAY ---
Indication: Nausea and vomiting. Multiple contiguous axial images obtained without and pelvis without contrast. Comparison: January 23, 2024 Lung bases demonstrate new cardiomegaly, pulmonary edema, and tiny bibasilar effusions, cardiac decompensation/CHF versus fluid overload. Again gastric bypass surgery, right hemicolectomy, and cholecystectomy. Noncontrasted stomach and bowel loops remain nonobstructed again with scattered descending/sigmoid diverticulosis. No free fluid/air. Remaining liver, pancreas, spleen, adrenal glands, kidneys, ureters, bladder, and uterus are unremarkable for noncontrast exam. Stable moderate scattered aortoiliac calcifications without AAA. Osseous structures intact again with osteopenia, mild/moderate degenerative changes throughout spine, minimal levoscoliosis, and left lower back epidural generator with dual leads. Impression: 1. New cardiomegaly with pulmonary edema and bibasilar effusions. Rule out cardiac decompensation/CHF versus fluid overload. 2. Again chronic findings including postsurgical changes, colonic diverticulosis, arteriosclerotic disease, and chronic bony findings. 3. Remaining CT abdomen/pelvis without contrast exam is negative.
--- NOTE | 2024-05-05 05:08 | PCM.NOTE ---
Date and Time: 05/05/24 0502 Subjective Assessment: is a 74 year old female with PMHX of morbid obesity, anxiety, A-fib (not on anticoagualtion, taken off meds by oncology), gastroesophageal reflux disease, chronic anemia, CHF, CAD, diabetes, rheumatoid arthritis, COPD, hypertension, and hyperlipidemia. She has had breast and colon cancer and rosi echols in remission from colon CA. She is a patient of Dr. Lechuga (PCP), Dr. Hardin (cardiovascular), Dr. Galindo (infectious disease), Dr. Rivera (hematology/ oncology). Patient admitted 04/30/24 with CHF exacerbation after presenting to ED with a one week history of progressive shortness of breath shortness of breath. Patient typically wears 3 L of oxygen via nasal cannula at nighttime - later requiring continuous as symptoms progressed. She was given IV fluids, lasix, and potassium replacement in the ER. K+ on admission was 2.9. She is currently on 3lNC and BL is 3lNC at [facility]. CT chest from 04/30/24 consistent with cardiac decompensation/CHF and cardiomegaly. CXR 05/01/24 noting clear upper lungs with small bibasilar effusions. Echo noting EF of 40%. Mild concentric left ventricular hypertrophy.Moderate aortic sclerosis without stenosis. Very small posterior pericardial effusion without echocardiographic evidence of tamponade. IP initial treatment with IV lasix - now back to PO home dosing. Edema has resolved. She has reported chest pain during hospital course. EKG shows a-fib which is chronic. Troponins normal. Ferrous sulfate started for iron deficiency anemia. Pt is stable for discharge with close follow up with her hemmer lockstitch. She has refused Hospice. She has had frequent repeat admissions for CHF. She refuses rehab or ECF placement. High readmission risk as she has stated that if she is discharged she will come right back to the ER. Patient had complaints of nausea/vomiting overnight. CT abdomen with noted pulmonary edema otherwise no acute findings. 05/05/24: Patient with chest pressure 05/04/24 mid-sternum - non-radiating, with no associated symptoms. No more nausea/vomiting - requesting regular diet. Trops slightly elevated and uptrendings. EKG findings with no changes. Will consult cardiology today. - Review of Systems Constitutional: No Symptoms Eyes: No Symptoms Ears, Nose, & Throat: No Symptoms Respiratory: No Symptoms Cardiac: No Symptoms Abdominal/Gastrointestinal: No Symptoms Genitourinary Symptoms: No Symptoms Musculoskeletal: No Symptoms Skin: No Symptoms Neurological: No Symptoms Psychological: No Symptoms Endocrine: No Symptoms Hematologic/Lymphatic: No Symptoms Immunological/Allergic: No Symptoms Objective Exam General Appearance: no apparent distress Neurologic Exam: alert, oriented x 3, agitation Skin Exam: normal color Wound Assessment: Skin/Wound Assessment Wound/Incision Assessment Start: 04/30/24 22:56 Text: Status: Active Freq: Q6H Protocol: Document 05/05/24 02:00 KD (Rec: 05/05/24 02:58 KD [id number]) Wound/Incision Assessment Right Medial Abdomen Wound Assessment Shift Assessment Wound Type eczema - scabbed & raw areas Wound Stage Non Pressure Wound Drainage Amount None General Appearance Open to air,Reddened Wound Bed Greatest Portion Red (Granulation) Surrounding Tissue [place]den Comment aquaphor applied as ordered - remains true Wound Photo Photo Taken No Eye Exam: PERRL Ears, Nose, Throat Exam: normal ENT inspection Neck Exam: normal inspection Respiratory Exam: normal breath sounds, lungs clear Cardiovascular Exam: regular rate/rhythm, normal heart sounds Gastrointestinal/Abdomen Exam: soft, normal bowel sounds Extremity Exam: normal inspection Back Exam: normal inspection Pelvic Exam: deferred Rectal Exam: deferred Objective Data Vital Signs: Vital Signs - 24 hr Temp Pulse Resp BP Pulse Ox 05/04/24 23:35 97.1 F 94 H 16 110/64 95 05/04/24 22:00 78 112/69 05/04/24 21:48 97.3 F 89 18 136/59 97 05/04/24 18:44 97.5 F 99 H 16 126/56 90 L 05/04/24 18:42 95 H 16 95 05/04/24 16:00 97.7 F 86 16 117/62 99 05/04/24 11:37 97.6 F 93 H 16 119/73 97 05/04/24 07:14 98.1 F 96 H 16 119/78 96 05/04/24 07:01 100 H 18 97 Pain Assessment - Last Documented Pain Intensity 0 Intake and Output: Intake & Output 05/02/24 05/03/24 05/04/24 05/05/24 11:59 11:59 11:59 11:59 Intake Total 1240 480 150 Output Total 2024 3309 253 800 Balance -785 -2070 -100 -800 Weight 108.2 kg 109.8 kg 108.3 kg Lab Results: Lab Results-Last 24 Hours 05/04/24 05/04/24 05/04/24 Range/Units 04:45 04:45 22:20 WBC 9.0 (3.98-10.04) x10^3/uL RBC 4.29 (3.93-5.22) x10^6/uL Hgb 9.6 L (11.2-15.7) g/dL Hct 34.2 (34.1-44.9) % MCV 79.7 (79.4-94.8) fL MCH 22.4 L (25.6-32.2) pg MCHC 28.1 L (32.2-35.5) g/dL RDW 19.3 H (11.7-14.4) % Plt Count 329 (182-369) x10^3/uL MPV 9.5 (9.4-12.3) fL Sodium 137 (135-145) mmol/L Potassium 4.2 (3.5-5.1) mmol/L Chloride 98 (98-107) mmol/L Carbon Dioxide 34 H (22-30) mmol/L Anion Gap 9.5 (5-15) MEQ/L BUN 15 (7-17) mg/dL Creatinine 0.77 (0.52-1.04) mg/dL Estimated GFR 79.9 ML/MIN Glucose 118 H (74-106) mg/dL Calcium 9.3 (8.4-10.2) mg/dL Total Bilirubin 0.60 (0.2-1.3) mg/dL AST 27 (14-36) U/L ALT 23 (0-35) U/L Alkaline Phosphatase 94 (38-126) U/L Troponin I 0.041 H* (0.000-0.033) ng/mL Serum Total Protein 7.0 (6.3-8.2) g/dL Albumin 3.6 (3.5-5.0) g/dL Slides for Path Review YES 05/05/24 Range/Units 02:15 WBC (3.98-10.04) x10^3/uL RBC (3.93-5.22) x10^6/uL Hgb (11.2-15.7) g/dL Hct (34.1-44.9) % MCV (79.4-94.8) fL MCH (25.6-32.2) pg MCHC (32.2-35.5) g/dL RDW (11.7-14.4) % Plt Count (182-369) x10^3/uL MPV (9.4-12.3) fL Sodium (135-145) mmol/L Potassium (3.5-5.1) mmol/L Chloride (98-107) mmol/L Carbon Dioxide (22-30) mmol/L Anion Gap (5-15) MEQ/L BUN (7-17) mg/dL Creatinine (0.52-1.04) mg/dL Estimated GFR ML/MIN Glucose (74-106) mg/dL Calcium (8.4-10.2) mg/dL Total Bilirubin (0.2-1.3) mg/dL AST (14-36) U/L ALT (0-35) U/L Alkaline Phosphatase (38-126) U/L Troponin I 0.043 H* (0.000-0.033) ng/mL Serum Total Protein (6.3-8.2) g/dL Albumin (3.5-5.0) g/dL Slides for Path Review Radiology Exams: Radiology Procedures Category Date Time Status ABDOMEN AND PELVIS W/0 CONTRAS [CT] Urgent Exams 05/04/24 10:52 Completed Multi-Disciplinary Progress Notes: Multi-Disciplinary Progress Notes 05/04/24 14:54 Physical Therapy Note by Nathalie(Celestina#[id number])Melissa ATTEMPTED TO SEE PATIENT THIS AFTERNOON. PATIENT REPORTS SHE HAD JUST FINISHED LUNCH AND DID NOT WANT TO WALK "NOT RIGHT NOW". PATIENT REPORTS SHE HAS BEEN RUN AROUND DOING TESTS AND NOT UP TO IT NOW. Initialized on 05/04/24 14:54 - END OF NOTE 05/04/24 14:03 Case Management Note by Santa Montanez HAS ACCEPTED Initialized on 05/04/24 14:03 - END OF NOTE 05/04/24 11:54 Physical Therapy Note by [place]#[id number])Melissa ATTEMPTED TO SEE PATIENT THIS A.M. PATIENT WAS RETURNING TO ROOM AFTER ABDOMINAL CT. WANTING TO HAVE SOMETHING TO DRINK. NURSE CAME AND REPORTED PATIENT NEEDED TO STAY NPO DUE TO STILL HAS TO HAVE BLADDER SCAN. PATIENT OBSERVED TRANSFERRING WHEELCHAIR TO BED INDEP WITHOUT MARKET BASKET MAKER ASSIST. PATIENT REPORTS SHE IS USING BEDSIDE COMMODE THEY WON'T LET ME GET UP WITHOUT HELP. ROLLATOR PRESENT IN ROOM BUT PATIENT REPORTS SHE HASN'T BEEN USING "BECAUSE THEY WON'T LET ME". STATES SHE HAS ONE AT HOME BUT DOESN'T USE/NEED IT. OFFERED TO GO FOR A WALK BUT REPLIED "NOT RIGHT NOW. NOT UNTIL I CAN HAVE SOMETHING TO DRINK." WILL CHECK AGAIN IN AFTERNOON TO SEE IF PATIENT WILL COOPERATE AND PARTICIPATE WITH P.T. Initialized on 05/04/24 11:54 - END OF NOTE 05/04/24 11:46 Case Management Note by Santa Montanez S/W PATIENT ABOUT NEEDS AT DC. DOCUMENTATION FROM WEEKEND NOTED THAT PATIENT REFUSED TO GO HOME STATING SHE WAS UNABLE TO TAKE CARE OF HERSELF. I APPROACHED PATENT ABOUT THIS- PATIENT IRRITABLE AND REPORTS SHE DID NOT SAY THAT AND THAT SHE WILL NOT GO TO THE [place]. PATIENT REPORTS SHE WILL DO HHC AGAIN. SHE HAS HAD HHC WITH [facility] IN THE PAST AND WOULD BE AGREEABLE TO HAVE THEM BACK. REFERRAL SENT. PATIENT ALREADY HAS HOME OXYGEN WITH PORTABILITY AND IS ABLE TO AFFORD HER MEDS AND GET TO [facility]. NO OTHER NEW NEEDS IDENTIFIED AT THIS TIME Initialized on 05/04/24 11:46 - END OF NOTE 05/04/24 11:42 Case Management Note by Santa Montanez [facility]- THEY WILL NEED NOTIFIED AT TIME OF DC AT [phone]. THEY WILL NEED FAXED THE DC INSTRUCTIONS, DC MED LIST AND DC SUMMARY TO [phone] Initialized on 05/04/24 11:42 - END OF NOTE Assessment/Plan (1) Acute exacerbation of CHF (congestive heart failure) Current Visit: Yes Status: Acute Assessment & Plan: (1) Acute exacerbation of CHF (congestive heart failure) Current Visit: Yes Status: Acute Assessment & Plan: -Chest CT from 04/30/24 consistent with cardiac decompensation/CHF and cardiomegaly -CXR 05/01/24 noting clear upper lungs with small bibasilar effusions -Echo 05/01/2024: 1. Technically difficult study. 2. Moderately dilated atria. Normal ventricular chamber sizes. 3. Mild concentric left ventricular hypertrophy. 4. Mild to moderately depressed LV systolic function with an estimated EF 40%. The anteroseptal wall is severely hypokinetic. The anterior wall is suboptimally seen but also appears hypokinetic. Other wall segments appear to contract normally. 5. Unable to assess diastolic function due to patient's underlying atrial fibrillation. 6. Normal right ventricular systolic function. 7. Moderate aortic sclerosis without stenosis. 8. No significant valvular regurgitation noted. 9. PA systolic pressure is underestimated. 10. Normal right atrial pressure. 11. Very small posterior pericardial effusion without echocardiographic evidence of tamponade - Low sodium, carb consistent diet -On baseline 3L NC oxygen -Initially treated with IV lasix - now at home PO dosing of torsemide - refuses to d/c consider psych consult - CM to help with d/c plan of care 05/05: -CT with pulm edema - will add Bumex - d/c lasix -cardiology consult for chest pain/chf exacerbation- appreciate recs Code(s): I50.9 - HEART FAILURE, UNSPECIFIED ###Chest Pain -see CHF (2) Atrial fibrillation Current Visit: Yes Status: Chronic Assessment & Plan: - Chronic - Tele - Not currently on blood thinners per oncology recs- risks outweigh benefits - Continue metoprolol Code(s): I48.91 - UNSPECIFIED ATRIAL FIBRILLATION (3) Cardiomegaly Current Visit: Yes Status: Acute Assessment & Plan: - As seen on CT - ECHO- EF 40% -05/02/24 - as stated above - Tele - Per pt Dr. Hardin- her hemmer lockstitch wants repeat echo and ordered one to be done soon OP - Previous Echo dated 02/17/24 shows EF 50% Code(s): I51.7 - CARDIOMEGALY (4) Irritability Current Visit: Yes Status: Chronic Assessment & Plan: - Pt being irritable and rude to staff - refusing chair alarm - Case management to assist with d/c plan tomorrow as pt is stable - refusing SCD's and some meds - refusing to d/c - refusing HHC, Rehab, ECF, Hospice but feels she cannot go home and take care of herself- may need to get family involved - consider psych consult (5) Eczema Current Visit: Yes Status: Chronic Assessment & Plan: - abd region - advised pt not to pick as she is causing bleeding - refused aquaphor ordered. Code(s): L30.9 - DERMATITIS, UNSPECIFIED (6) Insomnia Current Visit: Yes Status: Chronic Assessment & Plan: -Continue Amitriptyline at HS Code(s): G47.00 - INSOMNIA, UNSPECIFIED (7) Nausea and vomiting Current Visit: Yes Status: Acute Assessment & Plan: -CT ab/pelvis -GB US -NPO -zofran 05/05: -CT with no acute findings in the abdomen - N/V resolved Code(s): R11.2 - NAUSEA WITH VOMITING, UNSPECIFIED (8) Hypokalemia Current Visit: Yes Status: Resolved Assessment & Plan: -scheduled potassium 20 meq QID -Resolved Code(s): E87.6 - HYPOKALEMIA (9) Obesity, Class III, BMI 40-49.9 (morbid obesity) Current Visit: No Status: Chronic Assessment & Plan: - advised ADA diet and exercise control Code(s): E66.01 - MORBID (SEVERE) OBESITY DUE TO EXCESS CALORIES (10) Chronic anemia Current Visit: Yes Status: Chronic Assessment & Plan: - + iron def anemia- started ferrous sulfate daily -replace if hgb <7 Code(s): D64.9 - ANEMIA, UNSPECIFIED Code(s): I50.9 - HEART FAILURE, UNSPECIFIED (2) Atrial fibrillation Current Visit: Yes Status: Chronic Code(s): I48.91 - UNSPECIFIED ATRIAL FIBRILLATION (3) Cardiomegaly Current Visit: Yes Status: Acute Code(s): I51.7 - CARDIOMEGALY (4) Irritability Current Visit: Yes Status: Chronic (5) Eczema Current Visit: Yes Status: Chronic Code(s): L30.9 - DERMATITIS, UNSPECIFIED (6) Insomnia Current Visit: Yes Status: Chronic Code(s): G47.00 - INSOMNIA, UNSPECIFIED (7) Nausea and vomiting Current Visit: Yes Status: Acute Code(s): R11.2 - NAUSEA WITH VOMITING, UNSPECIFIED (8) Hypokalemia Current Visit: Yes Status: Resolved Code(s): E87.6 - HYPOKALEMIA (9) Obesity, Class III, BMI 40-49.9 (morbid obesity) Current Visit: No Status: Chronic Code(s): E66.01 - MORBID (SEVERE) OBESITY DUE TO EXCESS CALORIES (10) Chronic anemia Current Visit: Yes Status: Chronic Code(s): D64.9 - ANEMIA, UNSPECIFIED
[2024-05-05 05:14] LABS: Absolute Neutrophil Ct (ANC) 4.87 x10^3/uL (1.56-6.13); BASOPHIL % 0.4 % (0.1-1.2); Basophil (Absolute #) 0.03 x10^3/uL (0.01-0.08); Eosinophil % 2.7 % (0.7-5.8); Hematocrit 31.3 % (34.1-44.9); Hemoglobin 8.9 g/dL (11.2-15.7); IMMATURE GRAN # 0.03 x10^3u/L (0.001-0.031); IMMATURE GRAN % 0.4 % (0.001-0.429); Lymphocyte (Absolute #) 1.74 x10^3/uL (1.18-3.74); Lymphocytes % 23.3 % (19.3-51.7); Mean Cell Volume 80.3 fL (79.4-94.8); Mean Corpuscular Hemoglobin 22.8 pg (25.6-32.2); Mean Corpuscular Hgb Concent. 28.4 g/dL (32.2-35.5); Mean Platelet Volume 9.7 fL (9.4-12.3); Monocyte (Absolute #) 0.61 x10^3/uL (0.24-0.86); Monocytes % 8.2 % (4.7-12.5); Platelet Count 297 x10^3/uL (182-369); Red Cell Distribution Width 19.5 % (11.7-14.4); White Blood Count 7.5 x10^3/uL (3.98-10.04)
[2024-05-05 05:20] LABS: ALBUMIN 3.3 g/dL (3.5-5.0); ANION GAP 10.2 MEQ/L (5-15); BILIRUBIN,TOTAL 0.4 mg/dL (0.2-1.3); Creatinine 1 0.68 mg/dL (0.52-1.04); EST GLOMERULAR FILTRATION RATE 90.2 ML/MIN; Potassium 4.1 mmol/L (3.5-5.1); Total Protein 6.4 g/dL (6.3-8.2)
[2024-05-05 05:56] LABS: Slide Review 1 YES
[2024-05-05] MEDS: BUMEX 1 MG IV SCH (08:57)
--- NOTE | 2024-05-05 17:47 | PCM.CONS ---
History of Present Illness - Date of Consult Date of Encounter: 05/05/24 Consulting Want Ad Receiver: BEAU POON MD Requesting Provider: Attending Provider: HEIDI RIBEIRO MD Primary Care Provider: PCP: WANDER MONTOYA Consent was: Given for this tele-med encounter - Consult Narrative Reason for Consult: Chest pain, CHF HPI: Patient is a 74 yo female with history of persistent atrial fibrillation, HTN, hypercholesterolemia, COPD, remote tobacco use, RA, breast cancer, and colon cancer who presented with worsening shortness of breath. cc:: The requesting physician will be sent a copy of the consult. Review of Systems - Review of Systems All systems: all other systems reviewed and were unremarkable (Breast and colon cancer both in remission. Pertinent positive and negative findings in HPI.) - Past Medical History Past Medical History: Yes Neurological History: No Pertinent History ENT History: No Pertinent History Cardiac History: Arrhythmia (Atrial fibrillation), Congestive Heart Failure, High Cholesterol, Hypertension Respiratory History: COPD Endocrine Medical History: No Pertinent History Musculoskelatal History: Rheumatoid Arthritis GI Medical History: Colorectal Cancer, Diverticulosis, GERD, Polyps History: No Pertinent History Pyscho-Social History: Anxiety Reproductive Disorders: Breast Cancer Comment: C-Diff (Dr. Epstein), iron deficiency anemia (Dr. Rivera), eczema, bowel obstruction, chronic sciatic nerve pain - Past Surgical History Past Surgical History: Yes Neuro Surgical History: No Pertinent History Cardiac History: No Pertinent History Respiratory Surgery: No Pertinent History GI Surgical History: Colon Resection, Hernia Repair, Other Genitourinary Surgical Hx: No Pertinent History Musculskeletal Surgical Hx: Joint Replacement, Orthopedic Surgery Female Surgical History: Tubal Ligation, Mastectomy Other Surgical History: Bjorn knee replacement, bariatric surgery, breast cancer with partial mastectomy left, lumpectomy right breast, port placed x 2, insertion of a sciatic nerve stimulator Significant Family History: heart disease, cancer - Social History Smoking Status: Former smoker How long have you smoked: 40 yrs Exposure to second hand smoke: Yes (occassionally) Alcohol: Occasionally Drug Use: none - Social Determinants of Health Will the patient participate in the screening: Yes Do you worry about a steady place to live?: No Do you have any problems with any of the following?: No known problems In the past 12 months,have you had to go without utilities?: No Have you or anyone in your house had to go without enough: No Transportation Issues: No Has anyone in your support network made you feel unsafe?: No Does the patient want assistance with any of the above?: No Medications & Allergies Home Medications: Home Medication List Metoprolol Succinate 100 mg [Toprol Xl 100 MG] 100 mg PO DAILY 11/23/20 [History Confirmed 04/30/24] Metoclopramide HCl 10 mg [Reglan 10 MG] 10 mg PO TIDWMEALS #30 tablet 03/19/21 [Rx Confirmed 04/30/24] PANTOPRAZOLE 40 mg Tablet [Protonix 40MG Tablet] 40 mg PO DAILY #30 tab 03/24/21 [Rx Confirmed 04/30/24] Amitriptyline HCl 25 mg [Amitriptyline 25 mg Tablet] 25 mg PO TID 03/09/22 [History Confirmed 04/30/24] Gabapentin 300 mg PO DAILY 03/09/22 [History Confirmed 04/30/24] Dupilumab [Dupixent Pen] 300 mg SQ CLARIFY 12/05/22 [History Confirmed 04/30/24] Cyanocobalamin (Vitamin B-12) [Vitamin B-12] 500 mcg PO DAILY 09/22/23 [History Confirmed 04/30/24] Sucralfate 1 gm [Carafate 1 GM] 1 g PO TID 09/22/23 [History Confirmed 04/30/24] Folic Acid 1 mg [Folate 1 mg] 1 mg PO DAILY 01/23/24 [History Confirmed 04/30/24] Lactobacillus Acidophilus [Probiotic] 1 cap PO DAILY 01/23/24 [History Confirmed 04/30/24] Cholecalciferol (Vitamin D3) [Vitamin D3] 2,000 iu PO DAILY 02/16/24 [History Confirmed 04/30/24] Famotidine 20 mg PO BID 02/16/24 [History Confirmed 04/30/24] Potassium Chloride 20 meq PO QID 02/16/24 [History Confirmed 04/30/24] Aspirin/Acetaminophen/Caffeine [Excedrin Migraine Caplet] 2 each PO BID PRN 04/30/24 [History Confirmed 04/30/24] Fluticasone Propion/Salmeterol [Advair 100-50 Diskus] 1 puff IH BID 04/30/24 [History Confirmed 04/30/24] Furosemide [Lasix] 40 mg PO DAILY 04/30/24 [History Confirmed 04/30/24] Gabapentin 600 mg PO HS 04/30/24 [History Confirmed 04/30/24] Allergies/Adverse Reactions: Allergies Allergy/AdvReac Type Severity Reaction Status Date / Time bee venom protein (honey bee) Allergy Severe Anaphylactic Verified 04/25/24 03:01 Reaction venom-wasp Allergy Anaphylactic Verified 04/25/24 03:01 Reaction acetaminophen AdvReac Mild Nausea Verified 04/25/24 03:01 [From Tylenol-Codeine] codeine AdvReac Mild Nausea Verified 04/25/24 03:01 [From Tylenol-Codeine] bandaids AdvReac Mild redness/swe Uncoded 04/25/24 03:01 lling Exam - Vitals Vital Signs: Vital Signs - 24 hr Temp Pulse Resp BP Pulse Ox 05/05/24 15:00 97.8 F 82 16 114/59 96 05/05/24 11:00 97.5 F 87 16 128/72 96 05/05/24 07:36 98.0 F 88 16 108/60 97 05/05/24 07:02 86 16 99 05/05/24 05:19 96.6 F 88 16 112/64 97 05/04/24 23:35 97.1 F 94 H 16 110/64 95 05/04/24 22:00 78 112/69 05/04/24 21:48 97.3 F 89 18 136/59 97 05/04/24 18:44 97.5 F 99 H 16 126/56 90 L 05/04/24 18:42 95 H 16 95 General:: alert and oriented x 4, no acute distress HEENT: EOMI Cardiovascular Exam: normal heart sounds, irregular, No murmur, No friction rub, No gallop, No edema Respiratory Exam: lungs clear SpO2: 96 Gastrointestinal/Abdomen Exam: normal bowel sounds Skin Exam: warm Extremity Exam: other (Left LE slightly larger than right LE.) Neurologic: emotional support teacher II-XII grossly intact, No motor deficits Results Vital Signs: Vital Signs - 24 hr Temp Pulse Resp BP Pulse Ox 05/05/24 15:00 97.8 F 82 16 114/59 96 05/05/24 11:00 97.5 F 87 16 128/72 96 05/05/24 07:36 98.0 F 88 16 108/60 97 05/05/24 07:02 86 16 99 05/05/24 05:19 96.6 F 88 16 112/64 97 05/04/24 23:35 97.1 F 94 H 16 110/64 95 05/04/24 22:00 78 112/69 05/04/24 21:48 97.3 F 89 18 136/59 97 05/04/24 18:44 97.5 F 99 H 16 126/56 90 L 05/04/24 18:42 95 H 16 95 Pain Assessment - Last Documented Pain Intensity 0 Intake and Output: Intake & Output 05/03/24 05/04/24 05/05/24 05/06/24 11:59 11:59 11:59 11:59 Intake Total 480 150 480 480 Output Total 2550 250 1300 2000 Balance -2070 -100 -820 -1520 Weight 109.8 kg 108.3 kg 107.4 kg LAB: I have reviewed the Labs in [facility]. Radiology Exams: Radiology Procedures Category Date Time Status ABDOMEN AND PELVIS W/0 CONTRAS [CT] Urgent Exams 05/04/24 10:[address] 05/04/2024 1. New cardiomegaly with pulmonary edema and bibasilar effusions. Rule out cardiac decompensation/CHF versus fluid overload. 2. Again chronic findings including postsurgical changes, colonic diverticulosis, arteriosclerotic disease, and chronic bony findings. 3. Remaining CT abdomen/pelvis without contrast exam is negative. ECGs: 05/05/2024: Atrial fibrillation with a controlled VR at 89 bpm. Low voltage QRS in in precordial leads. Nonspecific ST and T abnormalities. 02/17/2024: Sinus tachycardia with occasional PVCs at 101 bpm. Low voltage in precordial leads. Telemetry: 04/30/2024-05/04/2024: Atrial fibrillation with occasional aberrantly conducted complexes vs PVCs. 02/16/2024-02/21/2024: Sinus rhythm 02/15 thru 02/18/2024. Atrial fibrillation 02/18-02/21/2024. TRANSTHORACIC ECHOCARDIOGRAM 05/01/2024: 1. Technically difficult study. 2. Moderately dilated atria. Normal ventricular chamber sizes. 3. Mild concentric left ventricular hypertrophy. 4. Mild to moderately depressed LV systolic function with an estimated EF 40%. The anteroseptal wall is severely hypokinetic. The anterior wall is suboptimally seen but also appears hypokinetic. Other wall segments appear to contract normally. 5. Unable to assess diastolic function due to patient's underlying atrial fibrillation. 6. Normal right ventricular systolic function. 7. Moderate aortic sclerosis without stenosis. 8. No significant valvular regurgitation noted. 9. PA systolic pressure is underestimated. 10. Normal right atrial pressure. 11. Very small posterior pericardial effusion without echocardiographic evidence of tamponade. TRANSTHORACIC ECHOCARDIOGRAM 02/17/2024: 1. Technically difficult study. 2. Mildly dilated left atrium. Other chamber sizes are normal. 3. Borderline low left ventricular systolic function with mild septal hypokinesis. Estimated EF 50% 4. Normal right ventricular systolic function. 5. Moderate aortic sclerosis without stenosis. Unable to exclude a bicuspid ao rtic valve. 6. Doppler: Mild mitral and pulmonic regurgitation. 7. Unable to estimate PA systolic pressure. 8. Mildly elevated right atrial pressure. 9. No pericardial effusion. Regadenoson MPS 04/03/2024: 1. Left ventricle hypertrophy. 2. No scintigraphic evidence for pharmacologic-induced reversible ischemia. 3. Low ejection fraction with EF 26% due to global hypokinesis. Chest CT with contrast 04/30/2024: 1. Continued negative pulmonary embolus. 2. New cardiomegaly and bilateral effusions favoring cardiac decompensation/CHF. 3. Again chronic findings including pulmonary emphysema, chronic bony findings, fatty liver, and old granulomatous disease. Multi-Disciplinary Progress Notes: Multi-Disciplinary Progress Notes 05/05/24 10:51 Physical Therapy Note by Asael (Celestina#[id number])Heather PATIENT WAS SEEN THIS AM SITTING SEMI RECLINED IN HER BED. PHYSICAL THERAPY WAS ATTEMPTED. SHE STATED SHE IS ABLE TO INDEPENDENTLY TRANSFER ON/OFF THE COMMODE FROM BED AND IS INDEPENDENT WITH AMBULATING TO THE BATHROOM AND BACK TO BED WITHOUT DIFFICULTY. SHE STATED THERAPY HAD NEVER HELPED HER IN THE PAST AND DIDN'T WANT TO DO IT TODAY. AT THIS TIME SHE HAS REFUSED THERAPY TWO DAYS IN A ROW AND WILL NO LONGER BE TREATED BY PHYSICAL THERAPY. WILL MONITOR HER STATUS IN THE MEANTIME. Initialized on 05/05/24 10:51 - END OF NOTE 05/05/24 10:00 Case Management Note by Santa Montanez/Tere PATIENT- SHE CONTINUES TO DENY ANY NEW NEEDS AT TIME OF DC. [facility] HAS BEEN SET UP. Initialized on 05/05/24 10:00 - END OF NOTE Assessment & Plan (1) Acute on chronic combined systolic and diastolic CHF (congestive heart failure) Current Visit: Yes Status: Acute Assessment & Plan: Acute exacerbation at admission secondary to the discontinuance of Jardiance several weeks before admission. Diuresed well early in hospital course but medical regimen not optimized yielding a recurrence of CHF. Continue Bumex IV. When compensated will change to torsemide 40 mg by mouth daily. Will start spironolactone 25 mg daily and Entresto 24/26 mg BID tonight. Discontinue potassium supplements with the initiation of spironolactone and Entresto to avoid hyperkalemia. In am will restart Jardiance 10 mg daily. Code(s): I50.43 - ACUTE ON CHRONIC COMBINED SYSTOLIC AND DIASTOLIC HRT FAIL (2) Chest pain Current Visit: No Status: Acute Assessment & Plan: Prolonged episode lasting 3-4 hours last night not associated with an increase in troponin-I levels. This as well as normal myocardial perfusion in 03/2024 would argue against significant coronary ischemia. Chest pressure may be more related to CHF. Will follow symptoms with treatment of CHF. Code(s): R07.9 - CHEST PAIN, UNSPECIFIED (3) Persistent atrial fibrillation Current Visit: Yes Status: Acute Assessment & Plan: Ventricular response controlled on metoprolol. [id number] score = 5 places patient at a high risk for an embolic event/stroke. Her oncologist has recommended against systemic anticoagulation. Will discuss further with patient tomorrow. Code(s): I48.19 - OTHER PERSISTENT ATRIAL FIBRILLATION (4) Hypertension Current Visit: No Status: Chronic Assessment & Plan: Acceptable control with most SBP readings < 130 mmHg. Will follow BP curve with the addition of Entresto, spironolactone, and Jardience. Code(s): I10 - ESSENTIAL (PRIMARY) HYPERTENSION - Encounter Encounter: "The entirety of this encounter was performed via Telemedicine using audio and visual "
[2024-05-05] MEDS: ENTRESTO 49 MG-51 MG TABLET PO SCH (22:39)
[2024-05-06] MEDS: TYLENOL 325 MG PO PRN (03:13)
[2024-05-06 04:59] LABS: BASOPHIL % 0.5 % (0.1-1.2); Basophil (Absolute #) 0.04 x10^3/uL (0.01-0.08); Eosinophil % 2.5 % (0.7-5.8); Hemoglobin 9.4 g/dL (11.2-15.7); IMMATURE GRAN # 0.04 x10^3u/L (0.001-0.031); IMMATURE GRAN % 0.5 % (0.001-0.429); Lymphocyte (Absolute #) 1.86 x10^3/uL (1.18-3.74); Lymphocytes % 22.8 % (19.3-51.7); Mean Cell Volume 80.1 fL (79.4-94.8); Mean Corpuscular Hemoglobin 22.8 pg (25.6-32.2); Mean Corpuscular Hgb Concent. 28.5 g/dL (32.2-35.5); Mean Platelet Volume 9.7 fL (9.4-12.3); Monocyte (Absolute #) 0.62 x10^3/uL (0.24-0.86); Monocytes % 7.6 % (4.7-12.5); Neutrophil % 66.1 % (34.0-71.1); Platelet Count 278 x10^3/uL (182-369); Red Blood Count 4.12 x10^6/uL (3.93-5.22); Red Cell Distribution Width 19.5 % (11.7-14.4); White Blood Count 8.2 x10^3/uL (3.98-10.04)
--- NOTE | 2024-05-06 05:05 | PCM.NOTE ---
Date and Time: 05/06/24 0500 Subjective Assessment: is a 74 year old female with PMHX of morbid obesity, anxiety, A-fib (not on anticoagualtion, taken off meds by oncology), gastroesophageal reflux disease, chronic anemia, CHF, CAD, diabetes, rheumatoid arthritis, COPD, hypertension, and hyperlipidemia. She has had breast and colon cancer and currenlty in remission from colon CA. She is a patient of Dr. Lechuga (PCP), Dr. Hardin (cardiovascular), Dr. Galindo (infectious disease), Dr. Rivera (hematology/ oncology). Patient admitted 04/30/24 with CHF exacerbation after presenting to ED with a one week history of progressive shortness of breath shortness of breath. Patient typically wears 3 L of oxygen via nasal cannula at nighttime - later requiring continuous as symptoms progressed. She was given IV fluids, lasix, and potassium replacement in the ER. K+ on admission was 2.9. She is currently on 3lNC and BL is 3lNC at [facility]. CT chest from 04/30/24 consistent with cardiac decompensation/CHF and cardiomegaly. CXR 05/01/24 noting clear upper lungs with small bibasilar effusions. Echo noting EF of 40%. Mild concentric left ventricular hypertrophy.Moderate aortic sclerosis without stenosis. Very small posterior pericardial effusion without echocardiographic evidence of tamponade. IP initial treatment with IV lasix - now back to PO home dosing. Edema has resolved. She has reported chest pain during hospital course. EKG shows a-fib which is chronic. Troponins normal. Ferrous sulfate started for iron deficiency anemia. Pt is stable for discharge with close follow up with her land surveyor. She has refused Hospice. She has had frequent repeat admissions for CHF. She refuses rehab or ECF placement. High readmission risk as she has s tated that if she is discharged she will come right back to the ER. Patient had complaints of nausea/vomiting overnight. CT abdomen with noted pulmonary edema otherwise no acute findings. Patient with chest pressure 05/04/24. Cardiology consulted, reviewed note - agree with plan to continue bumex- add spironolactone - d/c potassium restart Jardiance and entresto today - when compensated change bumex to torsemide. Repeat cxr 05/07. 05/05/24: Patient with chest pressure 05/04/24 mid-sternum - non-radiating, with no associated symptoms. No more nausea/vomiting - requesting regular diet. Trops slightly elevated and uptrendings. EKG findings with no changes. Will consult cardiology today. 05/06/24: Met with patient bedside. No overnight events noted. States she is feeling better today. No CP this morning. No further N/V. Discussed cardiology consult and medication changes with patient is agreeable. Will continue to observe overnight with possible discharge tomorrow. Denies fever,cough, sob, cp, abdominal pain, KOEHLER, dizziness, N/V/D. - Review of Systems Constitutional: Weakness Eyes: No Symptoms Ears, Nose, & Throat: No Symptoms Respiratory: Short Of Breath Cardiac: No Symptoms Abdominal/Gastrointestinal: No Symptoms Genitourinary Symptoms: No Symptoms Musculoskeletal: No Symptoms Skin: No Symptoms Neurological: Irritability Psychological: No Symptoms Endocrine: No Symptoms Hematologic/Lymphatic: No Symptoms Immunological/Allergic: No Symptoms Objective Exam General Appearance: no apparent distress Neurologic Exam: alert, oriented x 3, uncooperative Skin Exam: normal color Wound Assessment: Skin/Wound Assessment Wound/Incision Assessment Start: 04/30/24 22:56 Text: Status: Active Freq: Q6H Protocol: Document 05/06/24 02:00 KD (Rec: 05/06/24 03:18 KD [id number]) Wound/Incision Assessment Right Medial Abdomen Wound Assessment Shift Assessment Wound Type eczema - scabbed & raw areas Wound Stage Non Pressure Wound Drainage Amount None General Appearance Open to air,Reddened Wound Bed Greatest Portion Red (Granulation) Surrounding Tissue Ulmer Comment aquaphor applied as ordered Wound Photo Photo Taken No Eye Exam: PERRL Ears, Nose, Throat Exam: normal ENT inspection Neck Exam: JVD Respiratory Exam: crackles/rales Cardiovascular Exam: regular rate/rhythm, normal heart sounds Gastrointestinal/Abdomen Exam: soft, normal bowel sounds Extremity Exam: normal inspection Back Exam: normal inspection Pelvic Exam: deferred Rectal Exam: deferred Objective Data Vital Signs: Vital Signs - 24 hr Temp Pulse Resp BP Pulse Ox 05/06/24 03:00 97.8 F 81 19 103/63 94 L 05/05/24 23:00 97.7 F 85 18 113/73 97 05/05/24 21:51 96 H 16 98 05/05/24 21:12 96 10/01/24 19:00 96.4 F 102 H 19 124/77 96 05/05/24 15:00 97.8 F 82 16 114/59 96 05/05/24 11:00 97.5 F 87 16 128/72 96 05/05/24 07:36 98.0 F 88 16 108/60 97 05/05/24 07:02 86 16 99 05/05/24 05:19 96.6 F 88 16 112/64 97 Pain Assessment - Last Documented Pain Intensity 5 Pain Scale Used [facility] Intake and Output: Intake & Output 05/03/24 05/04/24 05/05/24 05/06/24 11:59 11:59 11:59 11:59 Intake Total 480 150 480 960 Output Total 2550 250 1300 2500 Balance -3408 -407 -370 -4040 Weight 109.8 kg 108.3 kg 107.4 kg Lab Results: Lab Results-Last 24 Hours 05/05/24 05/05/24 05/05/24 Range/Units 02:15 02:15 04:50 WBC 7.5 (3.98-10.04) x10^3/uL RBC 3.90 L (3.93-5.22) x10^6/uL Hgb 8.9 L (11.2-15.7) g/dL Hct 31.3 L (34.1-44.9) % MCV 80.3 (79.4-94.8) fL MCH 22.8 L (25.6-32.2) pg MCHC 28.4 L (32.2-35.5) g/dL RDW 19.5 H (11.7-14.4) % Plt Count 297 (182-369) x10^3/uL MPV 9.7 (9.4-12.3) fL Gran % 65.0 (34.0-71.1) % Immature Gran % (Auto) 0.4 (0.001-0.429) % Nucleat RBC Rel Count 0.0 (0.00-0.2) % Eos # (Auto) 0.20 (0.04-0.36) x10^3/uL Immature Gran # (Auto) 0.03 (0.001-0.031) x10^3u/L Absolute Lymphs (auto) 1.74 (1.18-3.74) x10^3/uL Absolute Monos (auto) 0.61 (0.24-0.86) x10^3/uL Absolute Nucleated RBC 0.00 (0.00-0.012) x10^3u/L Lymphocytes % 23.3 (19.3-51.7) % Monocytes % 8.2 (4.7-12.5) % Eosinophils % 2.7 (0.7-5.8) % Basophils % 0.4 (0.1-1.2) % Absolute Granulocytes 4.87 (1.56-6.13) x10^3/uL Basophils # 0.03 (0.01-0.08) x10^3/uL D-Dimer (0.0-0.50) mg/L Sodium 137 (135-145) mmol/L Potassium 4.1 (3.5-5.1) mmol/L Chloride 101 (98-107) mmol/L Carbon Dioxide 29 (22-30) mmol/L Anion Gap 10.2 (5-15) MEQ/L BUN 16 (7-17) mg/dL Creatinine 0.68 (0.52-1.04) mg/dL Estimated GFR 90.2 ML/MIN Glucose 114 H (74-106) mg/dL Calcium 9.0 (8.4-10.2) mg/dL Total Bilirubin 0.40 (0.2-1.3) mg/dL AST 21 (14-36) U/L ALT 17 (0-35) U/L Alkaline Phosphatase 86 (38-126) U/L NT-Pro-B Natriuret Pep 1680 (<300) pg/mL Serum Total Protein 6.4 (6.3-8.2) g/dL Albumin 3.3 L (3.5-5.0) g/dL Slides for Path Review YES 05/05/24 Range/Units 08:58 WBC (3.98-10.04) x10^3/uL RBC (3.93-5.22) x10^6/uL Hgb (11.2-15.7) g/dL Hct (34.1-44.9) % MCV (79.4-94.8) fL MCH (25.6-32.2) pg MCHC (32.2-35.5) g/dL RDW (11.7-14.4) % Plt Count (182-369) x10^3/uL MPV (9.4-12.3) fL Gran % (34.0-71.1) % Immature Gran % (Auto) (0.001-0.429) % Nucleat RBC Rel Count (0.00-0.2) % Eos # (Auto) (0.04-0.36) x10^3/uL Immature Gran # (Auto) (0.001-0.031) x10^3u/L Absolute Lymphs (auto) (1.18-3.74) x10^3/uL Absolute Monos (auto) (0.24-0.86) x10^3/uL Absolute Nucleated RBC (0.00-0.012) x10^3u/L Lymphocytes % (19.3-51.7) % Monocytes % (4.7-12.5) % Eosinophils % (0.7-5.8) % Basophils % (0.1-1.2) % Absolute Granulocytes (1.56-6.13) x10^3/uL Basophils # (0.01-0.08) x10^3/uL D-Dimer 0.95 H* (0.0-0.50) mg/L Sodium (135-145) mmol/L Potassium (3.5-5.1) mmol/L Chloride (98-107) mmol/L Carbon Dioxide (22-30) mmol/L Anion Gap (5-15) MEQ/L BUN (7-17) mg/dL Creatinine (0.52-1.04) mg/dL Estimated GFR ML/MIN Glucose (74-106) mg/dL Calcium (8.4-10.2) mg/dL Total Bilirubin (0.2-1.3) mg/dL AST (14-36) U/L ALT (0-35) U/L Alkaline Phosphatase (38-126) U/L NT-Pro-B Natriuret Pep (<300) pg/mL Serum Total Protein (6.3-8.2) g/dL Albumin (3.5-5.0) g/dL Slides for Path Review Radiology Exams: Radiology Procedures Category Date Time Status ABDOMEN AND PELVIS W/0 CONTRAS [CT] Urgent Exams 05/04/24 10:52 Completed Multi-Disciplinary Progress Notes: Multi-Disciplinary Progress Notes 05/05/24 10:51 Physical Therapy Note by Asael (Celestina#[id number])Heather PATIENT WAS SEEN THIS AM SITTING SEMI RECLINED IN HER BED. PHYSICAL THERAPY WAS ATTEMPTED. SHE STATED SHE IS ABLE TO INDEPENDENTLY TRANSFER ON/OFF THE COMMODE FROM BED AND IS INDEPENDENT WITH AMBULATING TO THE BATHROOM AND BACK TO BED WITHOUT DIFFICULTY. SHE STATED THERAPY HAD NEVER HELPED HER IN THE PAST AND DIDN'T WANT TO DO IT TODAY. AT THIS TIME SHE HAS REFUSED THERAPY TWO DAYS IN A ROW AND WILL NO LONGER BE TREATED BY PHYSICAL THERAPY. WILL MONITOR HER STATUS IN THE MEANTIME. Initialized on 05/05/24 10:51 - END OF NOTE 05/05/24 10:00 Case Management Note by Santa Montanez S/W PATIENT- SHE CONTINUES TO DENY ANY NEW NEEDS AT TIME OF DC. [facility] HAS BEEN SET UP. Initialized on 05/05/24 10:00 - END OF NOTE Assessment/Plan (1) Acute exacerbation of CHF (congestive heart failure) Current Visit: Yes Status: Acute Assessment & Plan: -Chest CT from 04/30/24 consistent with cardiac decompensation/CHF and cardiomegaly -CXR 05/01/24 noting clear upper lungs with small bibasilar effusions -Echo 05/01/2024: 1. Technically difficult study. 2. Moderately dilated atria. Normal ventricular chamber sizes. 3. Mild concentric left ventricular hypertrophy. 4. Mild to moderately depressed LV systolic function with an estimated EF 40%. The anteroseptal wall is severely hypokinetic. The anterior wall is suboptimally seen but also appears hypokinetic. Other wall segments appear to contract normally. 5. Unable to assess diastolic function due to patient's underlying atrial fibrillation. 6. Normal right ventricular systolic function. 7. Moderate aortic sclerosis without stenosis. 8. No significant valvular regurgitation noted. 9. PA systolic pressure is underestimated. 10. Normal right atrial pressure. 11. Very small posterior pericardial effusion without echocardiographic evidence of tamponade - Low sodium, carb consistent diet -On baseline 3L NC oxygen -Initially treated with IV lasix - now at home PO dosing of torsemide - refuses to d/c consider psych consult - CM to help with d/c plan of care 05/05: -CT with pulm edema - will add Bumex - d/c lasix -cardiology consult for chest pain/chf exacerbation- appreciate recs 05/06: -Cardiology consulted, reviewed note - agree with plan to continue bumex- add spironolactone - d/c potassium restart Jardiance and entresto today - when compensated change bumex to torsemide -Repeat cxr tomorrow Code(s): I50.9 - HEART FAILURE, UNSPECIFIED ###Chest Pain -see CHF (2) Atrial fibrillation Current Visit: Yes Status: Chronic Assessment & Plan: - Chronic - Tele - Not currently on blood thinners per oncology recs- risks outweigh benefits - Continue metoprolol Code(s): I48.91 - UNSPECIFIED ATRIAL FIBRILLATION (3) Cardiomegaly Current Visit: Yes Status: Acute Assessment & Plan: - As seen on CT - ECHO- EF 40% -05/02/24 - as stated above - Tele - Per pt Dr. Hardin- her land surveyor wants repeat echo and ordered one to be done soon OP - Previous Echo dated 02/17/24 shows EF 50% Code(s): I51.7 - CARDIOMEGALY (4) Irritability Current Visit: Yes Status: Chronic Assessment & Plan: - Pt being irritable and rude to staff - refusing chair alarm - Case management to assist with d/c plan tomorrow as pt is stable - refusing SCD's and some meds - refusing to d/c - refusing HHC, Rehab, ECF, Hospice but feels she cannot go home and take care of herself- may need to get family involved - consider psych consult (5) Eczema Current Visit: Yes Status: Chronic Assessment & Plan: - abd region - advised pt not to pick as she is causing bleeding - refused aquaphor ordered. Code(s): L30.9 - DERMATITIS, UNSPECIFIED (6) Insomnia Current Visit: Yes Status: Chronic Assessment & Plan: -Continue Amitriptyline at HS Code(s): G47.00 - INSOMNIA, UNSPECIFIED (7) Nausea and vomiting Current Visit: Yes Status: Acute Assessment & Plan: -CT ab/pelvis -GB US -NPO -zofran 05/05: -CT with no acute findings in the abdomen - N/V resolved Code(s): R11.2 - NAUSEA WITH VOMITING, UNSPECIFIED (8) Hypokalemia Current Visit: Yes Status: Resolved Assessment & Plan: -scheduled potassium 20 meq QID -Resolved 05/06: -mildly low this morning - per cards potassium d/cd- spironolactone started -will monitor Code(s): E87.6 - HYPOKALEMIA (9) Obesity, Class III, BMI 40-49.9 (morbid obesity) Current Visit: No Status: Chronic Assessment & Plan: - advised ADA diet and exercise control Code(s): E66.01 - MORBID (SEVERE) OBESITY DUE TO EXCESS CALORIES (10) Chronic anemia Current Visit: Yes Status: Chronic Assessment & Plan: - + iron def anemia- started ferrous sulfate daily -replace if hgb <7 Code(s): D64.9 - ANEMIA, UNSPECIFIED Code(s): I50.9 - HEART FAILURE, UNSPECIFIED (2) Atrial fibrillation Current Visit: Yes Status: Chronic Code(s): I48.91 - UNSPECIFIED ATRIAL FIBRILLATION (3) Cardiomegaly Current Visit: Yes Status: Acute Code(s): I51.7 - CARDIOMEGALY (4) Irritability Current Visit: Yes Status: Chronic (5) Eczema Current Visit: Yes Status: Chronic Code(s): L30.9 - DERMATITIS, UNSPECIFIED (6) Insomnia Current Visit: Yes Status: Chronic Code(s): G47.00 - INSOMNIA, UNSPECIFIED (7) Nausea and vomiting Current Visit: Yes Status: Acute Code(s): R11.2 - NAUSEA WITH VOMITING, UNSPECIFIED (8) Hypokalemia Current Visit: Yes Status: Resolved Code(s): E87.6 - HYPOKALEMIA (9) Obesity, Class III, BMI 40-49.9 (morbid obesity) Current Visit: No Status: Chronic Code(s): E66.01 - MORBID (SEVERE) OBESITY DUE TO EXCESS CALORIES (10) Chronic anemia Current Visit: Yes Status: Chronic Code(s): D64.9 - ANEMIA, UNSPECIFIED
[2024-05-06 05:19] LABS: ALBUMIN 3.2 g/dL (3.5-5.0); ANION GAP 7.5 MEQ/L (5-15); BILIRUBIN,TOTAL 0.4 mg/dL (0.2-1.3); Calcium 8.7 mg/dL (8.4-10.2); Creatinine 1 0.69 mg/dL (0.52-1.04); EST GLOMERULAR FILTRATION RATE 89.9 ML/MIN; Potassium 3.4 mmol/L (3.5-5.1); Total Protein 6.2 g/dL (6.3-8.2)
[2024-05-06] MEDS: Klor Con PO ONE (07:38)
[2024-05-06] MEDS: JARDIANCE PO SCH (09:05)
[2024-05-06] MEDS: Aldactone 25 MG PO SCH (09:06)
[2024-05-06 09:53] LABS: Slide Review 1 YES
[2024-05-07 04:36] LABS: Absolute Neutrophil Ct (ANC) 7.04 x10^3/uL (1.56-6.13); BASOPHIL % 0.3 % (0.1-1.2); Basophil (Absolute #) 0.03 x10^3/uL (0.01-0.08); Eosinophil % 1.4 % (0.7-5.8); Eosinophil (Absolute #) 0.14 x10^3/uL (0.04-0.36); Hematocrit 36.8 % (34.1-44.9); Hemoglobin 10.9 g/dL (11.2-15.7); IMMATURE GRAN # 0.03 x10^3u/L (0.001-0.031); IMMATURE GRAN % 0.3 % (0.001-0.429); Lymphocyte (Absolute #) 1.79 x10^3/uL (1.18-3.74); Lymphocytes % 18.5 % (19.3-51.7); Mean Cell Volume 77.6 fL (79.4-94.8); Mean Corpuscular Hgb Concent. 29.6 g/dL (32.2-35.5); Mean Platelet Volume 9.3 fL (9.4-12.3); Monocyte (Absolute #) 0.64 x10^3/uL (0.24-0.86); Monocytes % 6.6 % (4.7-12.5); Neutrophil % 72.9 % (34.0-71.1); Platelet Count 313 x10^3/uL (182-369); Red Blood Count 4.74 x10^6/uL (3.93-5.22); Red Cell Distribution Width 20.1 % (11.7-14.4); White Blood Count 9.7 x10^3/uL (3.98-10.04)
--- NOTE | 2024-05-07 05:06 | PCM.DS ---
Discharge Summary Date of Admission: 04/30/24 17:07 Date of Discharge: Admitting Physician: HEIDI RIBEIRO MD Consults: Consults on Case 05/05/24 08:21 Consult Cardiology ROUTINE Primary Care Provider: WANDER MONTOYA Allergies Allergies bee venom protein (honey bee) Allergy (Severe, Verified 04/25/24 03:01) Anaphylactic Reaction venom-wasp Allergy (Verified 04/25/24 03:01) Anaphylactic Reaction acetaminophen [From Tylenol-Codeine] Adverse Reaction (Mild, Verified 04/25/24 03:01) Nausea codeine [From Tylenol-Codeine] Adverse Reaction (Mild, Verified 04/25/24 03:01) Nausea bandaids Adverse Reaction (Mild, Uncoded 04/25/24 03:01) redness/swelling Hospital Summary - Hospital Course Hospital Course: is a 74 year old female with PMHX of morbid obesity, anxiety, A-fib (not on anticoagualtion, taken off meds by oncology), gastroesophageal reflux disease, chronic anemia, CHF, CAD, diabetes, rheumatoid arthritis, COPD, hypertension, and hyperlipidemia. She has had breast and colon cancer and currenlty in remission from colon CA. She is a patient of Dr. Montoya (PCP), Dr. Hardin (cardiovascular), Dr. Galindo (infectious disease), Dr. Rivera (hematology/ oncology). Patient admitted 04/30/24 with CHF exacerbation after presenting to ED with a one week history of progressive shortness of breath shortness of breath. Patient typically wears 3 L of oxygen via nasal cannula at nighttime - later requiring continuous as symptoms progressed. She was given IV fluids, lasix, and potassium replacement in the ER. K+ on admission was 2.9. She is currently on 3lNC and BL is 3lNC at [facility]. CT chest from 04/30/24 consistent with cardiac decompensation/CHF and cardiomegaly. CXR 05/01/24 noting clear upper lungs with small bibasilar effusions. Echo noting EF of 40%. Mild concentric left ventricular hypertrophy.Moderate aortic sclerosis without stenosis. Very small posterior pericardial effusion without echocardiographic evidence of tamponade. IP initial treatment with IV lasix - now back to PO home dosing. Edema has resolved. She has reported chest pain during hospital course. EKG shows a-fib which is chronic. Troponins normal. Ferrous sulfate started for iron deficiency anemia. Pt is stable for discharge with close follow up with her fingerprint expert. She has refused Hospice. She has had frequent repeat admissions for CHF. She refuses rehab or ECF placement. High readmission risk as she has stated that if she is discharged she will come right back to the ER. Patient had complaints of nausea/vomiting overnight. CT abdomen with noted pulmonary edema otherwise no acute findings. Patient with chest pressure 05/04/24. Cardiology consulted, reviewed note - agree with plan to continue bumex- add spironolactone - d/c potassium restart Jardiance and entresto. Dyspnea improved. No further episodes of CP, N/V, and at baseline oxygen. She has agreed to [facility]. Torsemide on discharge. Advised close follow up with cardiology. Will replenish potassium prior to dc. Discharge Note Latest Assessment & Plan (1) Acute exacerbation of CHF (congestive heart failure) Current Visit: Yes Status: Acute Assessment & Plan: -Chest CT from 04/30/24 consistent with cardiac decompensation/CHF and cardiomegaly -CXR 05/01/24 noting clear upper lungs with small bibasilar effusions -Echo 05/01/2024: 1. Technically difficult study. 2. Moderately dilated atria. Normal ventricular chamber sizes. 3. Mild concentric left ventricular hypertrophy. 4. Mild to moderately depressed LV systolic function with an estimated EF 40%. The anteroseptal wall is severely hypokinetic. The anterior wall is suboptimally seen but also appears hypokinetic. Other wall segments appear to contract normally. 5. Unable to assess diastolic function due to patient's underlying atrial fibrillation. 6. Normal right ventricular systolic function. 7. Moderate aortic sclerosis without stenosis. 8. No significant valvular regurgitation noted. 9. PA systolic pressure is underestimated. 10. Normal right atrial pressure. 11. Very small posterior pericardial effusion without echocardiographic evidence of tamponade - Low sodium, carb consistent diet -On baseline 3L NC oxygen -Initially treated with IV lasix - now at home PO dosing of torsemide - refuses to d/c consider psych consult - CM to help with d/c plan of care 05/05: -CT with pulm edema - will add Bumex - d/c lasix -cardiology consult for chest pain/chf exacerbation- appreciate recs 05/06: -Cardiology consulted, reviewed note - agree with plan to continue bumex- add spironolactone - d/c potassium restart Jardiance and entresto today - when compensated change bumex to torsemide Code(s): I50.9 - HEART FAILURE, UNSPECIFIED ###Chest Pain -see CHF (2) Atrial fibrillation Current Visit: Yes Status: Chronic Assessment & Plan: - Chronic - Tele - Not currently on blood thinners per oncology recs- risks outweigh benefits - Continue metoprolol Code(s): I48.91 - UNSPECIFIED ATRIAL FIBRILLATION (3) Cardiomegaly Current Visit: Yes Status: Acute Assessment & Plan: - As seen on CT - ECHO- EF 40% -05/02/24 - as stated above - Tele - Per pt Dr. Hardin- her fingerprint expert wants repeat echo and ordered one to be done soon OP - Previous Echo dated 02/17/24 shows EF 50% Code(s): I51.7 - CARDIOMEGALY (4) Irritability Current Visit: Yes Status: Chronic Assessment & Plan: - Pt being irritable and rude to staff - refusing chair alarm - Case management to assist with d/c plan tomorrow as pt is stable - refusing SCD's and some meds - refusing to d/c - refusing HHC, Rehab, ECF, Hospice but feels she cannot go home and take care of herself- may need to get family involved - consider psych consult (5) Eczema Current Visit: Yes Status: Chronic Assessment & Plan: - abd region - advised pt not to pick as she is causing bleeding - refused aquaphor ordered. Code(s): L30.9 - DERMATITIS, UNSPECIFIED (6) Insomnia Current Visit: Yes Status: Chronic Assessment & Plan: -Continue Amitriptyline at HS Code(s): G47.00 - INSOMNIA, UNSPECIFIED (7) Nausea and vomiting Current Visit: Yes Status: Acute Assessment & Plan: -CT ab/pelvis -GB US -NPO -zofran 05/05: -CT with no acute findings in the abdomen - N/V resolved Code(s): R11.2 - NAUSEA WITH VOMITING, UNSPECIFIED (8) Hypokalemia Current Visit: Yes Status: Resolved Assessment & Plan: -scheduled potassium 20 meq QID -Resolved 05/06: -mildly low this morning - per cards potassium d/cd- spironolactone started -will monitor Code(s): E87.6 - HYPOKALEMIA (9) Obesity, Class III, BMI 40-49.9 (morbid obesity) Current Visit: No Status: Chronic Assessment & Plan: - advised ADA diet and exercise control Code(s): E66.01 - MORBID (SEVERE) OBESITY DUE TO EXCESS CALORIES (10) Chronic anemia Current Visit: Yes Status: Chronic Assessment & Plan: - + iron def anemia- started ferrous sulfate daily -replace if hgb <7 Code(s): D64.9 - ANEMIA, UNSPECIFIED Code(s): I50.9 - HEART FAILURE, UNSPECIFIED I spent 35 minutes [id number] with the patient on the day of discharge perfor margaret discharge exam, discussing hospital stay and discharge instructions with patient and caregivers, preparation of discharge records, prescriptions & referral forms and addressing any questions/concerns the patient had as documented above. - Vitals & Intake/Output Vital Signs: Vital Signs Temperature 96.6 F 05/06/24 23:40 Pulse Rate 81 05/07/24 04:00 Respiratory Rate 16 05/07/24 04:00 Blood Pressure 109/67 05/06/24 23:40 O2 Sat by Pulse Oximetry 95 05/06/24 23:40 Intake & Output: Intake & Output 05/04/24 05/05/24 05/06/24 05/07/24 11:59 11:59 11:59 11:59 Intake Total 528 873 9899 250 Output Total 250 1300 2500 900 Balance -100 -820 -1260 -650 Weight 108.3 kg 107.4 kg 106.6 kg - Lab Result Diagrams: 05/07/24 04:25 05/07/24 04:25 Lab Results-Last 24 Hrs: Lab Results-Last 24 Hours 05/06/24 05/06/24 05/06/24 Range/Units 04:45 04:45 10:17 WBC 8.2 (3.98-10.04) x10^3/uL RBC 4.12 (3.93-5.22) x10^6/uL Hgb 9.4 L (11.2-15.7) g/dL Hct 33.0 L (34.1-44.9) % MCV 80.1 (79.4-94.8) fL MCH 22.8 L (25.6-32.2) pg MCHC 28.5 L (32.2-35.5) g/dL RDW 19.5 H (11.7-14.4) % Plt Count 278 (182-369) x10^3/uL MPV 9.7 (9.4-12.3) fL Gran % 66.1 (34.0-71.1) % Immature Gran % (Auto) 0.5 H (0.001-0.429) % Nucleat RBC Rel Count 0.0 (0.00-0.2) % Eos # (Auto) 0.20 (0.04-0.36) x10^3/uL Immature Gran # (Auto) 0.04 H (0.001-0.031) x10^3u/L Absolute Lymphs (auto) 1.86 (1.18-3.74) x10^3/uL Absolute Monos (auto) 0.62 (0.24-0.86) x10^3/uL Absolute Nucleated RBC 0.00 (0.00-0.012) x10^3u/L Lymphocytes % 22.8 (19.3-51.7) % Monocytes % 7.6 (4.7-12.5) % Eosinophils % 2.5 (0.7-5.8) % Basophils % 0.5 (0.1-1.2) % Absolute Granulocytes 5.40 (1.56-6.13) x10^3/uL Basophils # 0.04 (0.01-0.08) x10^3/uL Sodium 139 (135-145) mmol/L Potassium 3.4 L 3.3 L (3.5-5.1) mmol/L Chloride 101 (98-107) mmol/L Carbon Dioxide 34 H (22-30) mmol/L Anion Gap 7.5 (5-15) MEQ/L BUN 16 (7-17) mg/dL Creatinine 0.69 (0.52-1.04) mg/dL Estimated GFR 89.9 ML/MIN Glucose 108 H (74-106) mg/dL Calcium 8.7 (8.4-10.2) mg/dL Total Bilirubin 0.40 (0.2-1.3) mg/dL AST 19 (14-36) U/L ALT 17 (0-35) U/L Alkaline Phosphatase 89 (38-126) U/L Serum Total Protein 6.2 L (6.3-8.2) g/dL Albumin 3.2 L (3.5-5.0) g/dL Slides for Path Review YES 05/07/24 Range/Units 04:25 WBC 9.7 (3.98-10.04) x10^3/uL RBC 4.74 (3.93-5.22) x10^6/uL Hgb 10.9 L (11.2-15.7) g/dL Hct 36.8 (34.1-44.9) % MCV 77.6 L (79.4-94.8) fL MCH 23.0 L (25.6-32.2) pg MCHC 29.6 L (32.2-35.5) g/dL RDW 20.1 H (11.7-14.4) % Plt Count 313 (182-369) x10^3/uL MPV 9.3 L (9.4-12.3) fL Gran % 72.9 H (34.0-71.1) % Immature Gran % (Auto) 0.3 (0.001-0.429) % Nucleat RBC Rel Count 0.0 (0.00-0.2) % Eos # (Auto) 0.14 (0.04-0.36) x10^3/uL Immature Gran # (Auto) 0.03 (0.001-0.031) x10^3u/L Absolute Lymphs (auto) 1.79 (1.18-3.74) x10^3/uL Absolute Monos (auto) 0.64 (0.24-0.86) x10^3/uL Absolute Nucleated RBC 0.00 (0.00-0.012) x10^3u/L Lymphocytes % 18.5 L (19.3-51.7) % Monocytes % 6.6 (4.7-12.5) % Eosinophils % 1.4 (0.7-5.8) % Basophils % 0.3 (0.1-1.2) % Absolute Granulocytes 7.04 H (1.56-6.13) x10^3/uL Basophils # 0.03 (0.01-0.08) x10^3/uL Sodium (135-145) mmol/L Potassium (3.5-5.1) mmol/L Chloride (98-107) mmol/L Carbon Dioxide (22-30) mmol/L Anion Gap (5-15) MEQ/L BUN (7-17) mg/dL Creatinine (0.52-1.04) mg/dL Estimated GFR ML/MIN Glucose (74-106) mg/dL Calcium (8.4-10.2) mg/dL Total Bilirubin (0.2-1.3) mg/dL AST (14-36) U/L ALT (0-35) U/L Alkaline Phosphatase (38-126) U/L Serum Total Protein (6.3-8.2) g/dL Albumin (3.5-5.0) g/dL Slides for Path Review Micro Results-Entire Visit: Microbiology 04/30/24 09:46 Blood Culture - Final Blood 04/30/24 09:22 Blood Culture - Final Blood - Procedures and Test Procedures and Tests throughout Hospitalization: Therapy Orders & Screens 04/30/24 17:10 EKG REPEAT IN AM Comment: Oxygen Nasal Cannula 2 lpm Comment: Respiratory Therapy Consult ROUTINE Comment: Reason For Exam: 04/30/24 17:46 RT Miscellaneous Order ROUTINE Comment: Physician Instructions: Reason For Exam: keep O2 > 92% Diagnosis: CHF exacerbation, hypokalemia 04/30/24 18:13 RT Screen per Nursing Assess ONCE Comment: Protocol Order Physician Instructions: Greater than 3 points order RT Admission Screen Reason For Exam: Triggered on Admission Diagnosis: CHF exacerbation, hypokalemia Diagnosis: CHF exacerbation, hypokalemia Pneumonia: No Home O2: Yes Asthma: No CHF: Yes Home CPAP/BIPAP: No Home Nebs/MDI: Yes Total Points: 13 05/01/24 09:46 RT Miscellaneous Order ROUTINE Comment: Physician Instructions: Reason For Exam: wean O2 as she does not wear at daytime baseline. Diagnosis: CHF exacerbation, hypokalemia 05/01/24 10:04 PT Eval & Treat (MD Order) ONCE Reason for Eval:: refusing to get up to go to he bathroom, weakness, lives at home Diagnosis: CHF exacerbation, hypokalemia 05/01/24 20:18 Respiratory Therapy Assessment DAILY Comment: Diagnosis: CHF exacerbation, hypokalemia 05/02/24 08:48 EKG STAT Comment: Diagnosis: CHF exacerbation, hypokalemia Discharge Exam General Appearance: no apparent distress Neurologic Exam: alert, oriented x 3, cooperative Eye Exam: PERRL Ears, Nose, Throat Exam: normal ENT inspection Neck Exam: normal inspection Respiratory Exam: crackles/rales Cardiovascular Exam: regular rate/rhythm, normal heart sounds Gastrointestinal/Abdomen Exam: soft, normal bowel sounds Pelvic Exam: deferred Rectal Exam: deferred Back Exam: normal inspection Extremity Exam: normal inspection Skin Exam: normal color Wound Assessment: Skin/Wound Assessment Wound/Incision Assessment Start: 04/30/24 22:56 Text: Status: Active Freq: Q6H Protocol: Document 05/07/24 02:00 LB (Rec: 05/07/24 04:19 LB [id number]) Wound/Incision Assessment Right Medial Abdomen Wound Assessment Shift Assessment Wound Type eczema - scabbed & raw areas Wound Stage Non Pressure Wound Drainage Amount None General Appearance Open to air,Reddened Wound Bed Greatest Portion Red (Granulation) Surrounding Tissue [place] Comment area is healing, looks much better, aquaphor applied Wound Photo Photo Taken No Final Diagnosis/Problem List - Final Discharge Diagnosis/Problem (1) Acute exacerbation of CHF (congestive heart failure) Current Visit: Yes Status: Acute Code(s): I50.9 - HEART FAILURE, UNSPECIFIED (2) Atrial fibrillation Current Visit: Yes Status: Chronic Code(s): I48.91 - UNSPECIFIED ATRIAL FIBRILLATION (3) Cardiomegaly Current Visit: Yes Status: Acute Code(s): I51.7 - CARDIOMEGALY (4) Irritability Current Visit: Yes Status: Chronic (5) Eczema Current Visit: Yes Status: Chronic Code(s): L30.9 - DERMATITIS, UNSPECIFIED (6) Insomnia Current Visit: Yes Status: Chronic Code(s): G47.00 - INSOMNIA, UNSPECIFIED (7) Nausea and vomiting Current Visit: Yes Status: Resolved Code(s): R11.2 - NAUSEA WITH VOMITING, UNSPECIFIED (8) Hypokalemia Current Visit: Yes Status: Resolved Code(s): E87.6 - HYPOKALEMIA (9) Obesity, Class III, BMI 40-49.9 (morbid obesity) Current Visit: No Status: Chronic Code(s): E66.01 - MORBID (SEVERE) OBESITY DUE TO EXCESS CALORIES (10) Chronic anemia Current Visit: Yes Status: Chronic Code(s): D64.9 - ANEMIA, UNSPECIFIED - Discharge Discharge Date: 05/07/24 Disposition: HOME HEALTH SERVICE Condition: Stable Prescriptions: New Spironolactone 25 mg [Aldactone 25 MG] 25 mg PO DAILY 30 Days #30 tablet Sacubitril/Valsartan [Entresto 24 mg-26 mg Tablet] 1 each PO DAILY 30 Days #30 tablet Ferrous Sulfate 325 mg [Feosol 325 mg] 325 mg PO DAILY 30 Days #30 tablet Empagliflozin [Jardiance] 10 mg PO DAILY 30 Days #30 tablet Torsemide [Soaanz] 40 mg PO DAILY 30 Days #30 tablet Continue Metoprolol Succinate 100 mg [Toprol Xl 100 MG] 100 mg PO DAILY Metoclopramide HCl 10 mg [Reglan 10 MG] 10 mg PO TIDWMEALS #30 tablet PANTOPRAZOLE 40 mg Tablet [Protonix 40MG Tablet] 40 mg PO DAILY #30 tab Amitriptyline HCl 25 mg [Amitriptyline 25 mg Tablet] 25 mg PO TID Gabapentin 300 mg PO DAILY Dupilumab [Dupixent Pen] 300 mg SQ CLARIFY Cyanocobalamin (Vitamin B-12) [Vitamin B-12] 500 mcg PO DAILY Sucralfate 1 gm [Carafate 1 GM] 1 g PO TID Folic Acid 1 mg [Folate 1 mg] 1 mg PO DAILY Lactobacillus Acidophilus [Probiotic] 1 cap PO DAILY Cholecalciferol (Vitamin D3) [Vitamin D3] 2,000 iu PO DAILY Famotidine 20 mg PO BID Fluticasone Propion/Salmeterol [Advair 100-50 Diskus] 1 puff IH BID Gabapentin 600 mg PO HS Discontinued Potassium Chloride 20 meq PO QID Furosemide [Lasix] 40 mg PO DAILY Aspirin/Acetaminophen/Caffeine [Excedrin Migraine Caplet] 2 each PO BID PRN Follow up with: WANDER MONTOYA [Primary Care Provider] - 05/11/24 1:30 pm MERCEDES VILLALTA PA [NON-STAFF PHY W/O PRIVILEGES] - 05/21/24 9:45 am (AT [facility])
[2024-05-07 05:09] LABS: ALBUMIN 3.5 g/dL (3.5-5.0); ANION GAP 9.4 MEQ/L (5-15); BILIRUBIN,TOTAL 0.7 mg/dL (0.2-1.3); Calcium 8.9 mg/dL (8.4-10.2); Creatinine 1 0.75 mg/dL (0.52-1.04); EST GLOMERULAR FILTRATION RATE 82.5 ML/MIN; Potassium 3.3 mmol/L (3.5-5.1); Total Protein 6.7 g/dL (6.3-8.2)
[2024-05-07] MEDS: Klor Con PO SCH (07:51)
[2024-05-07] MEDS: Aldactone 25 MG PO SCH (09:17)
[2024-05-07 12:20] VITALS: BP 87/55; PULSE 100; RESP 18; TEMP 98.2; O2SAT 90
== END 2024-05-07 11:50 | disposition home health service (06) ==
LOC: ED 08:57 → MED SURG 17:07
PROVIDERS: ADMIT Internal Medicine; ATTEND Internal Medicine
DX: I11.0 Hypertensive heart disease with heart failure (principal); I50.9 Heart failure, unspecified; I48.91 Unspecified atrial fibrillation; R45.4 Irritability and anger; L30.9 Dermatitis, unspecified; G47.00 Insomnia, unspecified; R11.2 Nausea with vomiting, unspecified; E87.6 Hypokalemia; E66.01 Morbid (severe) obesity due to excess calories; D64.9 Anemia, unspecified; R60.0 Localized edema; F41.9 Anxiety disorder, unspecified; K21.9 Gastro-esophageal reflux disease without esophagitis; E11.9 Type 2 diabetes mellitus without complications; E78.5 Hyperlipidemia, unspecified; R07.9 Chest pain, unspecified; Z85.3 Personal history of malignant neoplasm of breast; Z85.038 Personal history of other malignant neoplasm of large intestine
CPT/HCPCS: 0241U; 36000; 36415; 71046; 71260; 74176; 80047; 80053; 82607; 82728; 82746; 83540; 83550; 83735; 83880; 84132; 84145; 84484; 85025; 85027; 85379; 85610; 87040; 93005; 93041; 93306; 94640; 94760; 94762; 96374; 97161; 99285; Q3014; 93268; J1642; J1940; J2405; J3480; A9270-GY; G0378

== ENCOUNTER 2024-05-14 05:32 | Emergency (ER) | payer MEDICARE ==
[2024-05-14 05:43] VITALS: TEMP 97.9
--- NOTE | 2024-05-14 06:19 | ERPHSYRPT ---
- History of Present Illness Time Seen by Provider: 05/14/24 06:10 Source: patient Exam Limitations: no limitations Patient Subjective Stated Complaint: pain located underneath R shoulder blade that started last night, pain is worse with movement and palpation, pt states p ain is worse when she woke up this morning Triage Nursing Assessment: pt presents to ED via [facility], pt ambulatory to bed by self from ems cot, pt alert and oriented x3, skin pwd, pt c/o pain underneath R shoulder blade, pain worse upon movement and palpation of area, denies any numbness or tingling in extremity Physician History: 74-year-old female presents to emergency department via [facility] for evaluation of pain to her posterior lateral chest wall just lateral to the scapula. Pain started last night. Patient took [id number] analgesics. Patient awoke this morning states pain was worse. No trauma no fever no increase in activity level. Pain is associated with pleurisy. Pain worse with deep breath. However movement and palpation also reproduce symptomology. No associated shortness of breath. No nausea vomiting or diaphoresis. Patient denies a history of the same. Patient has a history of intermittent atrial fibrillation. She is currently in A-fib however rate is controlled at 82. Patient on metoprolol. Patient otherwise resting comfortably. She voices no other complaints or concerns at this time. Portions of this note were created with voice recognition technology. There may be grammatical, spelling, punctuation or sound alike errors Timing/Duration: yesterday Severity: moderate Modifying Factors: Improves With: movement Associated Symptoms: denies symptoms Allergies/Adverse Reactions: bee venom protein (honey bee) Allergy (Severe, Verified 05/14/24 05:35) Anaphylactic Reaction venom-wasp Allergy (Verified 05/14/24 05:35) Anaphylactic Reaction acetaminophen [From Tylenol-Codeine] Adverse Reaction (Mild, Verified 05/14/24 05:35) Nausea codeine [From Tylenol-Codeine] Adverse Reaction (Mild, Verified 05/14/24 05:35) Nausea bandaids Adverse Reaction (Mild, Uncoded 05/14/24 05:35) redness/swelling Home Medications: Metoprolol Succinate 100 mg [Toprol Xl 100 MG] 100 mg PO DAILY 11/23/20 [History] Amitriptyline HCl 25 mg [Amitriptyline 25 mg Tablet] 25 mg PO TID 03/09/22 [History] Gabapentin 300 mg PO TID 03/09/22 [History] Dupilumab [Dupixent Pen] 300 mg SQ CLARIFY 12/05/22 [History] Cyanocobalamin (Vitamin B-12) [Vitamin B-12] 500 mcg PO DAILY 09/22/23 [History] Sucralfate 1 gm [Carafate 1 GM] 1 g PO TID 09/22/23 [History] Folic Acid 1 mg [Folate 1 mg] 1 mg PO DAILY 01/23/24 [History] Lactobacillus Acidophilus [Probiotic] 1 cap PO DAILY 01/23/24 [History] Cholecalciferol (Vitamin D3) [Vitamin D3] 2,000 iu PO DAILY 02/16/24 [History] Fluticasone Propion/Salmeterol [Advair 100-50 Diskus] 1 puff IH BID 04/30/24 [History] Torsemide [Soaanz] 20 mg PO BID 05/14/24 [History] Hx Tetanus, Diphtheria Vaccination/Date Given: Yes Hx Influenza Vaccination/Date Given: Yes Hx Pneumococcal Vaccination/Date Given: Yes Travel Risk - International Travel Have you traveled outside of the country in past 3 weeks: No - Emerging Infectious Disease Are you exhibiting symptoms associated with any current EIDs: No Symptoms: Shortness of Breath Comment: pt just finished a round of antibiotics for c-diff - Review of Systems Constitutional: No Symptoms, No Fever, No Chills Eyes: No Symptoms Ears, Nose, & Throat: No Symptoms Respiratory: No Symptoms, No Cough, No Dyspnea Cardiac: No Symptoms, No Chest Pain, No Edema, No Syncope Abdominal/Gastrointestinal: No Symptoms, No Abdominal Pain, No Nausea, No V omiting, No Diarrhea Genitourinary Symptoms: No Symptoms, No Dysuria Musculoskeletal: No Symptoms, No Back Pain, No Neck Pain Skin: No Symptoms, No Rash Neurological: No Symptoms, No Dizziness, No Focal Weakness, No Sensory Changes Psychological: No Symptoms Endocrine: No Symptoms Hematologic/Lymphatic: No Symptoms Immunological/Allergic: No Symptoms All Other Systems: Reviewed and Negative - Past Medical History Pertinent Past Medical History: Yes Neurological History: No Pertinent History ENT History: No Pertinent History Cardiac History: Arrhythmia, Congestive Heart Failure, High Cholesterol, Hypertension Respiratory History: COPD Endocrine Medical History: No Pertinent History Musculoskeletal History: Rheumatoid Arthritis GI Medical History: Colorectal Cancer, Diverticulosis, GERD, Polyps History: No Pertinent History Psycho-Social History: Anxiety Female Reproductive Disorders: Breast Cancer Other Medical History: C-Diff (Dr. Epstein), iron deficiency anemia (Dr. Rivera), eczema, bowel obstruction, chronic sciatic nerve pain - Past Surgical History Past Surgical History: Yes Neuro Surgical History: No Pertinent History Cardiac: No Pertinent History Respiratory: No Pertinent History Gastrointestinal: Colon Resection, Hernia Repair, Other Genitourinary: No Pertinent History Musculoskeletal: Joint Replacement, Orthopedic Surgery Female Surgical History: Tubal Ligation, Mastectomy Other Surgical History: Bjorn knee replacement, bariatric surgery, breast cancer with partial mastectomy left, lumpectomy right breast, port placed x 2, insertion of a sciatic nerve stimulator Significant Family History: heart disease, cancer - Social History Smoking Status: Former smoker How long have you smoked: 40 yrs Exposure to second hand smoke: Yes (occassionally) Drug Use: none Patient Lives Alone: Yes - Social Determinants of Health Will the patient participate in the screening: Declined to provide - Nursing Vital Signs Nursing Vital Signs: Initial Vital Signs Temperature 97.9 F 05/14/24 05:36 Pain Scale Pain Intensity [Right 6 Posterior Shoulder] Pain Intensity 6 - Physical Exam General Appearance: no apparent distress, alert Eye Exam: PERRL/EOMI, eyes nml inspection Ears, Nose, Throat Exam: normal ENT inspection, pharynx normal, moist mucous membranes Neck Exam: normal inspection, non-tender, supple, full range of motion Respiratory Exam: normal breath sounds, lungs clear, airway intact, No respiratory distress Cardiovascular Exam: regular rate/rhythm, normal heart sounds, normal peripheral pulses Gastrointestinal/Abdomen Exam: soft, normal bowel sounds, No tenderness, No mass Back Exam: normal inspection, normal range of motion, other (Tenderness to palpation at the right posterior lateral chest adjacent to the scapula. Pain worse with deep inspiration), No CVA tenderness, No vertebral tenderness Extremity Exam: normal inspection, normal range of motion, pelvis stable Neurologic Exam: alert, oriented x 3, cooperative, normal mood/affect, sensation nml, No motor deficits Skin Exam: normal color, warm, dry, No rash Lymphatic Exam: No adenopathy O2 Delivery: Room Air - Course Nursing assessment & vital signs reviewed: Yes EKG Interpreted by Me: RATE (82), A-fib, NORMAL AXIS, NORMAL INTERVALS, NORMAL QRS Ordered Tests: Active Orders 24 hr Category Date Time Status Pharmacy Informatics Specialist STAT Care 05/14/24 06:12 Active EKG-ER Only STAT Care 05/14/24 06:11 Active IV Insertion STAT Care 05/14/24 06:11 Active Pulse Oximetry (ED) STAT Care 05/14/24 06:11 Active CBC W DIFF Stat Lab 05/14/24 06:11 Ordered CMP Stat Lab 05/14/24 06:11 Ordered D-DIMER QUANTITATIVE Stat Lab 05/14/24 06:11 Ordered PROTIME WITH INR Stat Lab 05/14/24 06:11 Ordered PTT Stat Lab 05/14/24 06:11 Ordered TROPONIN Q4H Lab 05/14/24 06:15 Ordered TROPONIN Q4H Lab 05/14/24 10:15 Ordered TROPONIN Q4H Lab 05/14/24 14:15 Ordered UA W/RFX UR CULTURE Stat Lab 05/14/24 06:12 Ordered Medication Summary Discontinued Medications Generic Name Dose Route Start Last Admin Trade Name Freq PRN Reason Stop Dose Admin Ketorolac Tromethamine 30 mg 05/14/24 06:14 05/14/24 06:30 Ketorolac Tromethamine 30 Mg/Ml Inj IV 05/14/24 06:15 30 mg STAT ONE Administration Ketorolac Tromethamine Confirm 05/14/24 06:21 Ketorolac Tromethamine 30 Mg/Ml Inj Administered 05/14/24 06:22 Dose 30 mg .ROUTE .STK-MED ONE - Progress Progress: improved Progress Note: 74-year-old female presents to emergency department for evaluation of back pain with a pleuritic component. Laboratory workup pending. Currently the change of shift. Patient will be endorsed to incoming physician Dr. Perez. He will review pending laboratory, imaging studies and make final disposition. He will contact patient's primary care doctor to determine the indication for initiation of anticoagulation as patient is currently in A-fib and not anticoagulated. Portions of this note were created with voice recognition technology. There may be grammatical, spelling, punctuation or sound alike errors Complexity of problem addressed is moderate acute complicated. No critical care time. Complex of data reviewed and analyzed is extensive. Test ordered test reviewed results analyzed and correlated clinically with history and physical examination. Management discussed with patient's primary care physician. Risk of complication or risk of morbidity/mortality patient management is moderate. Vital stable. Time spent to discharge patient approximately 20 minutes. Plan of care established for shared decision making. No social determinants of health present to impede follow-up. Portions of this note were created with voice recognition technology. There may be grammatical, spelling, punctuation or sound alike errors 05/14/24 06:52 Counseled pt/family regarding: lab results, diagnosis, rad results - Departure Departure Disposition: Home Clinical Impression: Pleuritic chest pain Condition: Stable Critical Care Time: No Referrals: WANDER MONTOYA [Primary Care Provider] - Follow up/PCP as directed Additional Instructions: Discharge/Care Plan JEREMIAH CONCEPCION was seen on 05/14/24 in the Emergency Room. The patient was counseled regarding Diagnosis,Lab results, Imaging studies, need for follow up and when to return to the Emergency Room. Prescriptions given: Discharge Note I have spoken with the patient and/or caregivers. I have explained the patient's condition, diagnosis and treatment plan based on the information available to me at this time. I have answered the patient's and/or caregiver's questions and addressed any concerns. The patient and/or caregivers have as good understanding of the patient's diagnosis, condition and treatment plan as can be expected at this point. The vital signs have been stable. The patient's condition is stable and appropriate for discharge from the emergency department. The patient will pursue further outpatient evaluation with the primary care physician or other designated or consulting physician as outlined in the discharge instructions. The patient and/or caregivers are agreeable to this plan of care and follow-up instructions have been explained in detail. The patient and/or caregivers have received these instruction. The patient/and or caregivers are aware that any significant change in condition or worsening of symptoms should prompt an immediate return to this or the closest emergency department or call 911.
[2024-05-14] MEDS ORDERED: TORAdol 30 mg Injection ONE (06:21)
[2024-05-14] MEDS: TORAdol 30 mg Injection IV ONE (06:30)
[2024-05-14 07:24] LABS: Absolute Neutrophil Ct (ANC) 3.46 x10^3/uL (1.56-6.13); Basophil (Absolute #) 0.06 x10^3/uL (0.01-0.08); Eosinophil (Absolute #) 0.43 x10^3/uL (0.04-0.36); Hematocrit 35.9 % (34.1-44.9); Hemoglobin 10.4 g/dL (11.2-15.7); IMMATURE GRAN # 0.01 x10^3u/L (0.001-0.031); IMMATURE GRAN % 0.2 % (0.001-0.429); Lymphocyte (Absolute #) 1.75 x10^3/uL (1.18-3.74); Lymphocytes % 28.3 % (19.3-51.7); Mean Cell Volume 79.8 fL (79.4-94.8); Mean Corpuscular Hemoglobin 23.1 pg (25.6-32.2); Mean Platelet Volume 9.4 fL (9.4-12.3); Monocyte (Absolute #) 0.47 x10^3/uL (0.24-0.86); Monocytes % 7.6 % (4.7-12.5); Neutrophil % 55.9 % (34.0-71.1); Platelet Count 294 x10^3/uL (182-369); Red Cell Distribution Width 19.5 % (11.7-14.4); White Blood Count 6.2 x10^3/uL (3.98-10.04)
[2024-05-14 07:31] LABS: ALBUMIN 3.6 g/dL (3.5-5.0); ANION GAP 12.9 MEQ/L (5-15); BILIRUBIN,TOTAL 0.4 mg/dL (0.2-1.3); Calcium 9.4 mg/dL (8.4-10.2); Creatinine 1 0.75 mg/dL (0.52-1.04); EST GLOMERULAR FILTRATION RATE 82.5 ML/MIN; Potassium 3.4 mmol/L (3.5-5.1); Total Protein 6.9 g/dL (6.3-8.2)
[2024-05-14 07:48] LABS: INR 0.94 (0.8-3.0); PROTIME 10.3 SECONDS (9.4-12.5)
[2024-05-14 07:53] LABS: D-DIMER QUANTITATIVE 0.92 mg/L (0.0-0.50); PTT 102.2 SECONDS (25.1-36.5)
[2024-05-14 08:47] LABS: INR 0.95 (0.8-3.0); PROTIME 10.4 SECONDS (9.4-12.5)
[2024-05-14 09:04] LABS: PTT > 139.0 SECONDS (25.1-36.5)
[2024-05-14 10:30] LABS: Appearance Clear (Clear); Bilirubin Negative (Negative); Blood Negative (Negative); Glucose, Urine 100 mg/dL (Negative); Ketones Negative (Negative); Leukocyte Esterase Negative (Negative); Nitrite Negative (Negative); Ph 5.5 (4.6-8.0); Specific Gravity 1.025 (1.005-1.030); Urobilinogen 0.2 mg/dL (0.2)
[2024-05-14 10:58] LABS: Bacteria None Seen /HPF (None Seen); Epithelial Cells None Seen /HPF (None Seen); Protein,Urine Dip Trace (Negative); WBC 0-2 /HPF (0-5)
[2024-05-14 11:12] LABS: INR 0.94 (0.8-3.0); PROTIME 10.3 SECONDS (9.4-12.5); PTT 24.4 SECONDS (25.1-36.5)
--- NOTE | 2024-05-14 11:25 | XRAY ---
Indication: Chest pain. Elevated d-dimer. COPD. Colon and breast cancer. Multiple contiguous axial images obtained through the chest using 80 cc Isovue 370 contrast and PE protocol. Imperson: April 30, 2024. Good opacification pulmonary arteries to include the lobar and segmental branches. Again no pulmonary embolus. Heart borderline enlarged again with scattered cortical calcifications and left Port-A-Cath. Aorta normal in course and caliber again with mild arteriosclerotic calcifications. Stable small mediastinal and right hilar calcified nodes. No pathologic mediastinal/hilar lymphadenopathy. Lungs again demonstrates moderate diffuse pulmonary emphysema. Bilateral effusions have cleared. No new pulmonary mass/nodule, infiltrate, or consolidation. Bony thorax intact again with osteopenia, degenerative changes throughout spine, old right 7 rib fracture, and epidural leads terminating T6-T7. Limited upper abdomen again demonstrates gastric bypass surgery and fatty liver. Again contrast in IVC and hepatic veins favoring right heart strain. Impression: 1. Continued negative for pulmonary embolus as reported on February 13, February 27, and April 30, 2024 CT chest pulmonary embolus exams. 2. Chronic findings including pulmonary emphysema, arteriosclerotic disease, chronic bony findings, fatty liver, and old granulomatous disease. 3. No acute abnormalities..
[2024-05-14] MEDS ORDERED: Zofran 4 MG/2 ML VIAL ONE (12:59)
[2024-05-14] MEDS ORDERED: MORPHINE SULFATE 2 MG INJ ONE (12:59)
[2024-05-14] MEDS: Zofran 4 MG/2 ML VIAL IV ONE (13:01)
[2024-05-14] MEDS: MORPHINE SULFATE 2 MG INJ IV ONE (13:02)
[2024-05-14 14:22] VITALS: O2SAT 99
[2024-05-14 14:48] VITALS: BP 129/57; PULSE 110; RESP 20
== END 2024-05-14 14:55 | disposition short-term general hospital (02) ==
LOC: ED 05:32
DX: R07.81 Pleurodynia (principal); I48.91 Unspecified atrial fibrillation; I11.0 Hypertensive heart disease with heart failure; I50.9 Heart failure, unspecified; Z79.899 Other long term (current) drug therapy
CPT/HCPCS: 36000; 36415; 71260; 80053; 81001; 84484; 85025; 85379; 85610; 85730; 87086; 93005; 93041; 94760; 96374; 96375; 99285; J1885; J2270; J2405

== ENCOUNTER 2025-06-16 11:55 | Emergency (ER) | payer MEDICARE ==
[2025-06-16 12:11] VITALS: TEMP 97.7
[2025-06-16 12:44] VITALS: RESP 18
--- NOTE | 2025-06-16 12:51 | ERPHSYRPT ---
- History of Present Illness Time Seen by Provider: 06/16/25 12:43 Source: patient Exam Limitations: no limitations Patient Subjective Stated Complaint: PT STATES HER FOOT SLIPPED ON A STARI AND SHE THINKS SHE INJURED HER LEFT FOOT Triage Nursing Assessment: PT ARRIVES TO THE ED VIA PRIVATE VEHICLE. PT IS ABLE TO AMBULATE INTO THE ER USING A CANE, AND ABLE TO GET INTO THE ER COT WITHOUT ASSISTANCE. PT IS ALERT AND ORIENTED X4, DYSPNEA ON EXERTION IS NOTED, PULSES PRESENT AND EQUAL BILATERALLY. PT STATES SHE WAS AT THE [facility] LAST NIGHT AND HAD 1.5 BEERS. WHEN SHE LEFT HER FOOT SLIPPED ON A STAIR AND IT TWISTED AND THE PT HEARD IT POP. PT HAS BEEN EXPERIENCING PAIN EVER SINCE AND RATES THIS PAIN A 9/10. PT STATES THAT THIS PAIN IS ON THE OUTSIDE OF HER LEFT FOOT AND DOES NOT RADIATE ANYWHERE. PT STATES THE PAIN IS NOT IN HER ANKLE, THAT IT IS JUST HER FOOT. PT STATES SHE TOOK ONE OF HER PRESCRIBED HYDROCODONE 10 MG AT 0830 AND THIS DID GIVE HER SOME RELIEF WITH INACTIVITY WELL. PT STATES THE PAIN GETS WORSE WITH STANDING, WALKING, AND ADL'S. THERE ARE NO OBVIOUS DEFORMITIES OF THE LEFT FOOT, NO BRUISING, SLIGHT SWELLING, AND TENDERNESS WITH PALPATION. Physician History: Patient is a 75-year-old female former smoker history of cardiac dysrhythmia, CHF hypertension COPD colorectal cancer breast cancer anxiety presents to our ED for evaluation of pain to left foot. Patient was at the [facility] last night. Patient states she had some alcohol when she slipped on a step and inverted her left foot. Patient states she heard a "pop". Patient's pain has been significant since. Patient rates her pain 9 out of 10. Pain primarily localized to the left lateral foot near the lateral malleolus. Pain worse with movement and palpation. Patient took a hydrocodone 10 at 830 this morning. Patient declined additional pain medication. Patient otherwise feels well. She voices no other complaints or concerns at this time. Portions of this note were created with voice recognition technology. There may be grammatical, spelling, punctuation or sound alike errors Timing/Duration: yesterday Severity: moderate Modifying Factors: Improves With: movement Associated Symptoms: denies symptoms Allergies/Adverse Reactions: bee venom protein (honey bee) Allergy (Severe, Verified 06/16/25 12:12) Anaphylactic Reaction venom-wasp Allergy (Verified 06/16/25 12:12) Anaphylactic Reaction acetaminophen [From Tylenol-Codeine] Adverse Reaction (Mild, Verified 06/16/25 12:12) Nausea codeine [From Tylenol-Codeine] Adverse Reaction (Mild, Verified 06/16/25 12:12) Nausea bandaids Adverse Reaction (Mild, Uncoded 06/16/25 12:12) redness/swelling Home Medications: Metoprolol Succinate 100 mg [Toprol Xl 100 MG] 100 mg PO DAILY 11/23/20 [History] Amitriptyline HCl 25 mg [Amitriptyline 25 mg Tablet] 25 mg PO DAILY 03/09/22 [History] Gabapentin 300 mg PO TID 03/09/22 [History] Sucralfate 1 gm [Carafate 1 GM] 1 g PO TID 09/22/23 [History] Cholecalciferol (Vitamin D3) [Vitamin D3] 2,000 iu PO DAILY 02/16/24 [History] Sacubitril/Valsartan [Entresto 24 mg-26 mg Tablet] 1 each PO DAILY 08/17/24 [History] Aspirin/Acetaminophen/Caffeine [Excedrin Migraine Caplet] 2 each PO BID 06/16/25 [History] Cyanocobalamin (Vitamin B-12) [Vitamin B12] 500 mcg PO DAILY 06/16/25 [History] Ezetimibe 10 mg [Zetia 10 MG] 10 mg PO DAILY 06/16/25 [History] Fluticasone Propion/Salmeterol [Advair 100-50 Diskus] 1 each IH Q4-6HPRN PRN 06/16/25 [History] Folic Acid 1 mg [Folate 1 mg] 1 mg PO DAILY 06/16/25 [History] Hydrocodone/Acetaminophen [Hydrocodone-Acetamin 10-325 mg] 1 each PO Q4-6HPRN PRN 06/16/25 [History] L.acidoph,Paracasei, B.lactis [Probiotic] 1 each PO DAILY 06/16/25 [History] Potassium Chloride 20 meq PO QID 06/16/25 [History] Hx Tetanus, Diphtheria Vaccination/Date Given: Yes Hx Influenza Vaccination/Date Given: Yes Hx Pneumococcal Vaccination/Date Given: Yes Immunizations Up to Date: Yes Travel Risk - International Travel Have you traveled outside of the country in past 3 weeks: No - Emerging Infectious Disease Are you exhibiting symptoms associated with any current EIDs: No Symptoms: Shortness of Breath Comment: pt just finished a round of antibiotics for c-diff - Review of Systems All Other Systems: Reviewed and Negative - Past Medical History Pertinent Past Medical History: Yes Neurological History: No Pertinent History ENT History: No Pertinent History Cardiac History: Arrhythmia, Congestive Heart Failure, Hypertension Respiratory History: COPD Endocrine Medical History: No Pertinent History Musculoskeletal History: Rheumatoid Arthritis GI Medical History: Colorectal Cancer, Diverticulosis, GERD, Polyps History: No Pertinent History Psycho-Social History: Anxiety Female Reproductive Disorders: Breast Cancer Other Medical History: C-Diff (Dr. Epstein), iron deficiency anemia (Dr. Chantel gaviria), eczema, bowel obstruction, chronic sciatic nerve pain - Past Surgical History Past Surgical History: Yes Neuro Surgical History: No Pertinent History Cardiac: No Pertinent History Respiratory: No Pertinent History Gastrointestinal: Colon Resection, Hernia Repair, Other Genitourinary: No Pertinent History Musculoskeletal: Joint Replacement, Orthopedic Surgery Female Surgical History: Tubal Ligation, Mastectomy Other Surgical History: Bjorn knee replacement, bariatric surgery, breast cancer with partial mastectomy left, lumpectomy right breast, port placed x 2, insertion of a sciatic nerve stimulator Significant Family History: heart disease, cancer - Social History Smoking Status: Former smoker Exposure to second hand smoke: Yes Drug Use: none - Social Determinants of Health Will the patient participate in the screening: Yes Do you worry about a steady place to live?: No Do you have any problems with any of the following?: No known problems In the past 12 months,have you had to go without utilities?: No Transportation Issues: No Has anyone in your support network made you feel unsafe?: No Have you or anyone in your house had to go w/o enough food: No - Nursing Vital Signs Nursing Vital Signs: Initial Vital Signs Temperature 97.7 F 06/16/25 12:09 Pulse Rate 91 H 06/16/25 12:09 Respiratory Rate 20 06/16/25 12:09 Blood Pressure 114/67 06/16/25 12:09 O2 Sat by Pulse Oximetry 95 06/16/25 12:09 Pain Scale Pain Intensity 9 - Physical Exam General Appearance: no apparent distress, alert Ears, Nose, Throat Exam: normal ENT inspection, moist mucous membranes Neck Exam: normal inspection, full range of motion Respiratory Exam: normal breath sounds, lungs clear, No respiratory distress Cardiovascular Exam: regular rate/rhythm, normal peripheral pulses Gastrointestinal/Abdomen Exam: soft, normal bowel sounds, No tenderness, No mass Back Exam: normal inspection, No CVA tenderness, No vertebral tenderness Extremity Exam: normal inspection, normal range of motion, pelvis stable, other (Tenderness to palpation left lateral foot just inferior to the lateral malleolus overlying soft tissue intact no open or draining lesions. The involved extremity is neurovascular intact distally compartments are soft cap refill less than 2 seconds.) Neurologic Exam: alert, oriented x 3, cooperative, normal mood/affect, sensation nml, No motor deficits Skin Exam: normal color, warm, dry, No rash Lymphatic Exam: No adenopathy SpO2 Interpretation: normal SpO2: 95 O2 Delivery: Room Air - Course Nursing assessment & vital signs reviewed: Yes - Radiology Exams Foot X-ray Interpretation: Teleradiologist Report (Osteopenia, heel spur, no fracture s or dislocations no intra-articular pathology) Ordered Tests: Active Orders 24 hr Category Date Time Status FOOT (MINIMUM 3 VIEWS) Stat Exams 06/16/25 12:36 Completed - Progress Progress: improved Progress Note: Dr. Covington independently reviewed and interpreted the x-ray of the left foot. No fracture dislocations. However formal read pending. 06/16/25 13:04 Patient is a 75-year-old female former smoker history of cardiac dysrhythmia, CHF hypertension COPD colorectal cancer breast cancer anxiety presents to our ED for evaluation of pain to left foot. Patient was at the [facility] last night. Patient states she had some alcohol when she slipped on a step and inverted her left foot. Physical exam reveals tenderness to palpation at the left lateral foot just inferior to the lateral malleolus. X-ray negative for fracture or dislocation Patient declined pain medication. Patient referred to the orthopedic clinic for follow-up. Patient voices no other complaints or concerns at this time. History obtained from patient. Differential diagnosis includes foot fracture, foot sprain, contusion Patient declined pain medication as she had taken pain medication prior to arrival Portions of this note were created with voice recognition technology. There may be grammatical, spelling, punctuation or sound alike errors Complexity of problems addressed is moderate acute complicated. No critical care time. Complexity of data reviewed and analyzed is moderate. Test ordered chest reviewed results analyzed and correlated clinically with history and physical exam. Risk of complication and or risk of morbidity/mortality of patient management is low. Vital stable. Time spent to discharge patient is approximately 15 minutes. Plan of care established for shared decision making. No social determinants of health present to impede follow-up. Portions of this note were created with voice recognition technology. There may be grammatical, spelling, punctuation or sound alike errors 06/16/25 13:10 Counseled pt/family regarding: lab results, diagnosis, need for follow-up, rad results - Departure Departure Disposition: Home Clinical Impression: Foot sprain Condition: Stable Critical Care Time: No Referrals: WANDER MONTOYA [Primary Care Provider, [facility]] - Follow up/PCP as directed Additional Instructions: Discharge/Care Plan JEREMIAH CONCEPCION was seen on 06/16/25 in the Emergency Room. The patient was counseled regarding Diagnosis,Lab results, Imaging studies, need for follow up and when to return to the Emergency Room. Prescriptions given: Discharge Note I have spoken with the patient and/or caregivers. I have explained the patient's condition, diagnosis and treatment plan based on the information available to me at this time. I have answered the patient's and/or caregiver's questions and addressed any concerns. The patient and/or caregivers have as good understanding of the patient's diagnosis, condition and treatment plan as can be expected at this point. The vital signs have been stable. The patient's condition is stable and appropriate for discharge from the emergency department. The patient will pursue further outpatient evaluation with the primary care physician or other designated or consulting physician as outlined in the discharge instructions. The patient and/or caregivers are agreeable to this plan of care and follow-up instructions have been explained in detail. The patient and/or caregivers have received these instruction. The patient/and or caregivers are aware that any significant change in condition or worsening of symptoms should prompt an immediate return to this or the closest emergency department or call 911. Outpatient Orders: Ortho Referral Time Frame: 1 Day, Facility: [facility], Location: ORTHO CLINIC
--- NOTE | 2025-06-16 12:58 | XRAY ---
Indication: Pain. Comparison: None 3 nonweightbearing views left foot demonstrates osteopenia, tiny spurring base 5th metatarsal, tiny posterior/small plantar heel spurs, and minimal vascular calcifications. No acute bony, articular, or soft tissue abnormalities.
[2025-06-16 13:03] VITALS: BP 118/74; PULSE 75
[2025-06-16 13:05] VITALS: O2SAT 95
== END 2025-06-16 13:17 | disposition home or self-care (01) ==
LOC: ED 11:55
DX: S93.602A Unspecified sprain of left foot, initial encounter (principal); W10.9XXA Fall (on) (from) unspecified stairs and steps, initial encounter; I11.0 Hypertensive heart disease with heart failure; I50.9 Heart failure, unspecified; Z79.891 Long term (current) use of opiate analgesic; Z79.899 Other long term (current) drug therapy

== ENCOUNTER 2025-07-14 10:06 | Emergency (ER) | payer OTHER ==
[2025-07-14 10:27] VITALS: TEMP 97.4
--- NOTE | 2025-07-14 10:34 | ERPHSYRPT ---
- History of Present Illness Time Seen by Provider: 07/14/25 10:20 Historian: patient, EMS Exam Limitations: no limitations Patient Subjective Stated Complaint: pt here for chest and back pain off and on for 4 days now, she has taken her home pain pills. denies cough or fever, pain worse with movement or a deep breath. Triage Nursing Assessment: pt arrived per ems in no distress, alert, able to move self from cot to bed , resp easy,no cough, port a cath to left side of chest access per ems. abd soft,o2 at 2 l nc applied for o2 sat 88%, pt does wear o2 at night. 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 The symptoms appear to be unrelated. 1 can hurt while the other 1 does not. The symptoms have been present for 4 days intermittently. Patient has medical history of hypertension, CHF, arrhythmia on Eliquis, COPD, rheumatoid arthritis and gastroesophageal reflux disease. Patient has chronic sciatic nerve pain and sees a printing specialist, Dr. Hardin. On 05/06/2025 patient had an echocardiogram done and carotid Dopplers. Patient sees municipal services manager, Dr. Rivera for iron deficiency anemia. Patient took all her medications this morning including hydrocodone because of the pain. She denies cough and she denies fever. In addition, paramedics provided the patient with fentanyl and nitroglycerin prior to arrival. Patient arrives to the emergency department with a systolic blood pressure of 89 mmHg. Timing/Duration: day(s) (4) Quality: aching Location: back (Right lower back), other (Left anterior lateral chest wall) Chest Pain Radiation: no radiation Severity of Pain-Max: mild Severity of Pain-Current: mild Modifying Factors: Improves With: nothing Associated Symptoms: shortness of breath (Mild) Prior Chest Pain/Cardiac Workup: cardiac cath, echocardiography Nitro Today/Relief: 0.4 mg x 1, provided by EMS Aspirin Treatment Today: 81 mg x 4, provided by ED Allergies/Adverse Reactions: bee venom protein (honey bee) Allergy (Severe, Verified 07/14/25 10:15) Anaphylactic Reaction venom-wasp Allergy (Verified 07/14/25 10:15) Anaphylactic Reaction acetaminophen [From Tylenol-Codeine] Adverse Reaction (Mild, Verified 07/14/25 10:15) Nausea codeine [From Tylenol-Codeine] Adverse Reaction (Mild, Verified 07/14/25 10:15) Nausea bandaids Adverse Reaction (Mild, Uncoded 07/14/25 10:15) redness/swelling Home Medications: Metoprolol Succinate 100 mg [Toprol Xl 100 MG] 100 mg PO DAILY 11/23/20 [History] Amitriptyline HCl 25 mg [Amitriptyline 25 mg Tablet] 25 mg PO DAILY 03/09/22 [History] Gabapentin 300 mg PO TID 03/09/22 [History] Sucralfate 1 gm [Carafate 1 GM] 1 g PO TID 09/22/23 [History] Cholecalciferol (Vitamin D3) [Vitamin D3] 2,000 iu PO DAILY 02/16/24 [History] Sacubitril/Valsartan [Entresto 24 mg-26 mg Tablet] 1 each PO DAILY 08/17/24 [History] Aspirin/Acetaminophen/Caffeine [Excedrin Migraine Caplet] 2 each PO BID 06/16/25 [History] Cyanocobalamin (Vitamin B-12) [Vitamin B12] 500 mcg PO DAILY 06/16/25 [History] Ezetimibe 10 mg [Zetia 10 MG] 10 mg PO DAILY 06/16/25 [History] Fluticasone Propion/Salmeterol [Advair 100-50 Diskus] 1 each IH Q4-6HPRN PRN 06/16/25 [History] Folic Acid 1 mg [Folate 1 mg] 1 mg PO DAILY 06/16/25 [History] Hydrocodone/Acetaminophen [Hydrocodone-Acetamin 10-325 mg] 1 each PO Q4-6HPRN PRN 06/16/25 [History] L.acidoph,Paracasei, B.lactis [Probiotic] 1 each PO DAILY 06/16/25 [History] Potassium Chloride 20 meq PO QID 06/16/25 [History] Hx Tetanus, Diphtheria Vaccination/Date Given: Yes Hx Influenza Vaccination/Date Given: Yes Hx Pneumococcal Vaccination/Date Given: Yes Immunizations Up to Date: Yes Travel Risk - International Travel Have you traveled outside of the country in past 3 weeks: No - Emerging Infectious Disease Are you exhibiting symptoms associated with any current EIDs: No Symptoms: Shortness of Breath Comment: pt just finished a round of antibiotics for c-diff - Review of Systems Constitutional: No Symptoms Eyes: No Symptoms Ears, Nose, & Throat: No Symptoms Respiratory: No Symptoms Cardiac: Chest Pain (Left anterior lateral chest wall) Abdominal/Gastrointestinal: No Symptoms Genitourinary Symptoms: No Symptoms Musculoskeletal: Back Pain (Right low back pain) Skin: No Symptoms Neurological: No Symptoms Psychological: No Symptoms Endocrine: No Symptoms Hematologic/Lymphatic: No Symptoms Immunological/Allergic: No Symptoms All Other Systems: Reviewed and Negative - Past Medical History Pertinent Past Medical History: Yes Neurological History: No Pertinent History ENT History: No Pertinent History Cardiac History: Arrhythmia, Congestive Heart Failure, Hypertension Respiratory History: COPD Endocrine Medical History: No Pertinent History Musculoskeletal History: Rheumatoid Arthritis GI Medical History: Colorectal Cancer, Diverticulosis, GERD, Polyps History: No Pertinent History Psycho-Social History: Anxiety Female Reproductive Disorders: Breast Cancer Other Medical History: C-Diff (Dr. Epstein), iron deficiency anemia (Dr. Rivera), eczema, bowel obstruction, chronic sciatic nerve pain - Past Surgical History Past Surgical History: Yes Neuro Surgical History: No Pertinent History Cardiac: No Pertinent History Respiratory: No Pertinent History Gastrointestinal: Colon Resection, Hernia Repair, Other Genitourinary: No Pertinent History Musculoskeletal: Joint Replacement, Orthopedic Surgery Female Surgical History: Tubal Ligation, Mastectomy Other Surgical History: Bjorn knee replacement, bariatric surgery, breast cancer with partial mastectomy left, lumpectomy right breast, port placed x 2, insertion of a sciatic nerve stimulator Significant Family History: heart disease, cancer - Social History Smoking Status: Former smoker Exposure to second hand smoke: Yes Drug Use: none - Social Determinants of Health Will the patient participate in the screening: Yes Do you worry about a steady place to live?: No Do you have any problems with any of the following?: No known problems In the past 12 months,have you had to go without utilities?: No Transportation Issues: No Has anyone in your support network made you feel unsafe?: No Have you or anyone in your house had to go w/o enough food: No - Nursing Vital Signs Nursing Vital Signs: Initial Vital Signs Temperature 97.4 F 07/14/25 10:07 Pulse Rate 80 07/14/25 10:07 Respiratory Rate 18 07/14/25 10:07 Blood Pressure 94/41 07/14/25 10:07 O2 Sat by Pulse Oximetry 93 L 07/14/25 10:07 Pain Scale Pain Intensity 7 - Physical Exam General Appearance: no apparent distress, alert, anxiety, obese Eye Exam: PERRL/EOMI, eyes nml inspection Ears, Nose, Throat Exam: normal ENT inspection, moist mucous membranes Neck Exam: normal inspection, non-tender, supple, full range of motion Respiratory Exam: normal breath sounds, lungs clear, airway intact, No chest tenderness, No respiratory distress Cardiovascular Exam: regular rate/rhythm, normal heart sounds, normal peripheral pulses Gastrointestinal/Abdomen Exam: soft, normal bowel sounds, No tenderness Pelvic Exam: not done Rectal Exam: not done Back Exam: normal inspection, normal range of motion, No CVA tenderness, No vertebral tenderness Extremity Exam: normal inspection, normal range of motion, pelvis stable Neurologic Exam: alert, oriented x 3, cooperative, clinical trial specialist II-XII nml as tested, sensation nml Skin Exam: normal color, warm, dry Lymphatic Exam: No adenopathy SpO2 Interpretation: normal SpO2: 93 O2 Delivery: Room Air - Course Nursing assessment & vital signs reviewed: Yes EKG Interpreted by Me: RATE (90), A-fib, Other (QTc is 437. No acute ischemia on this twelve-lead EKG. The comparison EKG was performed on 05/05/2024. There is been no significant change since that twelve-lead EKG.) Ordered Tests: Active Orders 24 hr Category Date Time Status Footwear Sales Associate STAT Care 07/14/25 10:35 Active EKG-ER Only STAT Care 07/14/25 10:34 Completed EKG-ER Only STAT Care 07/14/25 12:56 Completed IV Insertion STAT Care 07/14/25 10:34 Active Pulse Oximetry (ED) STAT Care 07/14/25 10:34 Active CBC W DIFF Stat Lab 07/14/25 10:40 Completed D-DIMER QUANTITATIVE Stat Lab 07/14/25 10:49 Completed Hepatic Function Panel Stat Lab 07/14/25 10:49 Completed MAGNESIUM Stat Lab 07/14/25 10:49 Completed NT PRO BNPII Stat Lab 07/14/25 10:49 Completed PROTIME WITH INR Stat Lab 07/14/25 10:49 Completed TROPONIN Q4H Lab 07/14/25 18:45 Ordered Medication Summary Discontinued Medications Generic Name Dose Route Start Last Admin Trade Name Cassius PRN Reason Stop Dose Admin Hydrocodone Bitart/Acetaminophen 1 tablet 07/14/25 15:35 07/14/25 15:38 Hydrocodone/Acetamin 10-325 Mg Tablet PO 07/14/25 15:36 1 tablet STAT ONE Administration Hydrocodone Bitart/Acetaminophen Confirm 07/14/25 15:37 Hydrocodone/Acetamin 10-325 Mg Tablet Administered 07/14/25 15:38 Dose 1 tablet .ROUTE .STK-MED ONE Aspirin 324 mg 07/14/25 10:34 07/14/25 11:13 Aspirin 81 Mg Tab.Chew PO 07/14/25 10:35 Not Given STAT ONE Lab/Rad Data: Laboratory Result Diagrams 07/14/25 10:40 07/14/25 10:49 Laboratory Results 07/14/25 07/14/25 07/14/25 Range/Units 13:02 10:49 10:49 WBC (3.98-10.04) x10^3/uL RBC (3.93-5.22) x10^6/uL Hgb (11.2-15.7) g/dL Hct (34.1-44.9) % MCV (79.4-94.8) fL MCH (25.6-32.2) pg MCHC (32.2-35.5) g/dL RDW (11.7-14.4) % Plt Count (182-369) x10^3/uL MPV (9.4-12.3) fL Gran % (34.0-71.1) % Immature Gran % (Auto) (0.001-0.429) % Nucleat RBC Rel Count (0.00-0.2) % Eos # (Auto) (0.04-0.36) x10^3/uL Immature Gran # (Auto) (0.001-0.031) x10^3u/L Absolute Lymphs (auto) (1.18-3.74) x10^3/uL Absolute Monos (auto) (0.24-0.86) x10^3/uL Absolute Nucleated RBC (0.00-0.012) x10^3u/L Lymphocytes % (19.3-51.7) % Monocytes % (4.7-12.5) % Eosinophils % (0.7-5.8) % Basophils % (0.1-1.2) % Absolute Granulocytes (1.56-6.13) x10^3/uL Basophils # (0.01-0.08) x10^3/uL PT 12.2 (9.4-12.5) SECONDS INR 1.09 (0.8-3.0) D-Dimer 0.52 H (0.0-0.50) mg/L Sodium Direct (138-146) mmol/L Potassium (3.5-4.9) mmol/L Chloride (98-109) mmol/L Carbon Dioxide (24-29) mmol/L Venous BUN (8-26) mg/dL Creatinine (0.6-1.3) mg/dL Glucose (70-105) mg/dL Ionized Calcium (1.12-1.32) mmol/L Magnesium Total Bilirubin Direct Bilirubin AST ALT Alkaline Phosphatase Troponin I High Sens 4.3 3.50 (<2.9-14) ng/mL NT-Pro-B Natriuret Pep (<300) pg/mL Serum Total Protein Albumin 07/14/25 07/14/25 Range/Units 10:49 10:40 WBC 5.8 (3.98-10.04) x10^3/uL RBC 3.98 (3.93-5.22) x10^6/uL Hgb 13.0 (11.2-15.7) g/dL Hct 40.7 (34.1-44.9) % MCV 102.3 H (79.4-94.8) fL MCH 32.7 H (25.6-32.2) pg MCHC 31.9 L (32.2-35.5) g/dL RDW 13.2 (11.7-14.4) % Plt Count 158 L (182-369) x10^3/uL MPV 10.2 (9.4-12.3) fL Gran % 72.0 H (34.0-71.1) % Immature Gran % (Auto) 0.2 (0.001-0.429) % Nucleat RBC Rel Count 0.0 (0.00-0.2) % Eos # (Auto) 0.13 (0.04-0.36) x10^3/uL Immature Gran # (Auto) 0.01 (0.001-0.031) x10^3u/L Absolute Lymphs (auto) 1.06 L (1.18-3.74) x10^3/uL Absolute Monos (auto) 0.40 (0.24-0.86) x10^3/uL Absolute Nucleated RBC 0.00 (0.00-0.012) x10^3u/L Lymphocytes % 18.2 L (19.3-51.7) % Monocytes % 6.9 (4.7-12.5) % Eosinophils % 2.2 (0.7-5.8) % Basophils % 0.5 (0.1-1.2) % Absolute Granulocytes 4.19 (1.56-6.13) x10^3/uL Basophils # 0.03 (0.01-0.08) x10^3/uL PT (9.4-12.5) SECONDS INR (0.8-3.0) D-Dimer (0.0-0.50) mg/L Sodium Direct 140 (138-146) mmol/L Potassium 4.1 (3.5-4.9) mmol/L Chloride 104 (98-109) mmol/L Carbon Dioxide 27 (24-29) mmol/L Venous BUN 18 (8-26) mg/dL Creatinine 1.0 (0.6-1.3) mg/dL Glucose 104 (70-105) mg/dL Ionized Calcium 1.21 (1.12-1.32) mmol/L Magnesium Not Reportable Total Bilirubin Not Reportable Direct Bilirubin Not Reportable AST Not Reportable ALT Not Reportable Alkaline Phosphatase Not Reportable Troponin I High Sens (<2.9-14) ng/mL NT-Pro-B Natriuret Pep (<300) pg/mL Serum Total Protein Not Reportable Albumin Not Reportable - Progress Progress: improved, re-examined Air Movement: good Progress Note: 07/14/25 12:02 My medical decision making and the assignment of moderate complexity of this patient's medical issue today is based on review of the patient's past medical history, reviewed patient's medication list, reviewed patient drug allergy list, history present illness and physical findings on examination. The workup in this patient includes CBC, CMP, BNP, troponin level, magnesium level, twelve- lead EKG, chest x-ray. Differential diagnosis includes but is not limited to muscle skeletal pain, pulmonary infiltrate, electrolyte abnormalities, myocardial infarction, arrhythmia 07/14/25 16:03 I interpreted the patient's laboratory data results. Based on laboratory data results there are no acute, emergent medical issues. She had 2 troponin levels that were normal. These were high-sensitivity levels. I interpreted the second twelve-lead EKG that was performed on 07/14/2025 at 1315. The heart rate is 67 bpm. The pattern is atrial fibrillation. The QTc is 437 and there is no evidence of acute ischemia. This is not changed from the prior 1 today. Patient was reexamined. Her vital signs are stable. She is afebrile. Her systolic blood pressure is 124 mmHg. She has no chest pain. She is not short of breath. 07/14/25 16:05 Patient D-dimer level was just slightly elevated at 0.52. High normal is 0.50. The patient is on Eliquis. I do not feel it necessary to perform a CT scan of the chest with contrast. Blood Culture(s) Obtained: No Antibiotics given: No Counseled pt/family regarding: lab results, diagnosis, need for follow-up Medical Desision Making - Independent Historian Additional History obtained from: Clearing Hand/EMT - Diagnostic Testing Diagnostic test were ordered, analyzed, and reviewed by me: Yes - Risk of complications Low Risk: Low risk of morbidity from additional dx testing or treatment - Departure Departure Disposition: Home Clinical Impression: Chest wall pain, Back pain Condition: Stable Critical Care Time: No Referrals: WANDER MONTOYA [Primary Care Provider, [facility]] - Follow up/PCP as directed Additional Instructions: Take all your medications as prescribed. Call your prescribing provider and printing specialist tomorrow, 07/15/2025 in the morning, to make arrangements for follow-up appointment to be seen in the next 3 to 5 days.
[2025-07-14 10:51] LABS: BASOPHIL % 0.5 % (0.1-1.2); Basophil (Absolute #) 0.03 x10^3/uL (0.01-0.08); Eosinophil (Absolute #) 0.13 x10^3/uL (0.04-0.36); Hematocrit 40.7 % (34.1-44.9); Hemoglobin 13.0 g/dL (11.2-15.7); IMMATURE GRAN # 0.01 x10^3u/L (0.001-0.031); IMMATURE GRAN % 0.2 % (0.001-0.429); Lymphocyte (Absolute #) 1.06 x10^3/uL (1.18-3.74); Mean Corpuscular Hemoglobin 32.7 pg (25.6-32.2); Mean Corpuscular Hgb Concent. 31.9 g/dL (32.2-35.5); Monocyte (Absolute #) 0.40 x10^3/uL (0.24-0.86); NUCLEATED RBC # 0.00 x10^3u/L (0.00-0.012); NUCLEATED RBC % 0.0 % (0.00-0.2); Platelet Count 158 x10^3/uL (182-369); Red Blood Count 3.98 x10^6/uL (3.93-5.22); White Blood Count 5.8 x10^3/uL (3.98-10.04)
[2025-07-14 11:08] LABS: INR 1.09 (0.8-3.0); PROTIME 12.2 SECONDS (9.4-12.5)
[2025-07-14] MEDS: BABY ASPIRIN 81 MG CHEW PO ONE (11:13)
[2025-07-14 11:43] LABS: ISTAT BUN 18 mg/dL (8-26); ISTAT CL 104 mmol/L (98-109); ISTAT CO2 27 mmol/L (24-29); ISTAT CREA 1.0 mg/dL (0.6-1.3); ISTAT GLUC 104 mg/dL (70-105); ISTAT K 4.1 mmol/L (3.5-4.9); ISTAT NA 140 mmol/L (138-146); ISTAT iCA 1.21 mmol/L (1.12-1.32)
[2025-07-14] MEDS ORDERED: NORCO 10-325 MG ONE (15:37)
[2025-07-14] MEDS: NORCO 10-325 MG PO ONE (15:38)
[2025-07-14] MEDS ORDERED: Hydromorphone 1 mg/ml Injection ONE (16:58)
[2025-07-14] MEDS: Hydromorphone 1 mg/ml Injection IV ONE (17:05)
[2025-07-14 17:23] VITALS: BP 103/62; PULSE 78; RESP 14; O2SAT 93
--- NOTE | 2025-07-15 11:43 | XRAY ---
Indication: Left rib pain. Comparison: May 01, 2024 Portable chest again hyperinflated and is now clear. Heart not enlarged again with left Port-A-Cath. Bony thorax intact again with osteopenia, degenerative changes, and epidural leads. Impression: Nonacute hyperinflated chest with chronic features.
== END 2025-07-14 17:45 | disposition home or self-care (01) ==
LOC: ED 10:06
DX: R07.89 Other chest pain (principal); M54.50 Low back pain, unspecified; I11.0 Hypertensive heart disease with heart failure; I50.9 Heart failure, unspecified; Z79.01 Long term (current) use of anticoagulants; Z79.891 Long term (current) use of opiate analgesic; Z79.899 Other long term (current) drug therapy